=== PATIENT | female | born 1975 | race African-American/Black ===

== ENCOUNTER 2023-03-07 14:30 | Inpatient (IN) | payer OTHER, SELFPAY ==
--- NOTE | ~2023-03-07 | US_ITS ---
EXAMINATION: US ABDOMEN COMPLETE CLINICAL INFORMATION: Diffuse abdominal pain and swelling. COMPARISON: CT abdomen and pelvis 01/17/2017. X-ray abdomen 12/11/2016. TECHNIQUE: Real-time imaging of the abdominal viscera. FINDINGS: PANCREAS: Normal. ABDOMINAL AORTA: The proximal, mid, and distal segments are normal in caliber. INFERIOR VENA CAVA: Visualized portions are normal. LIVER: Normal. The liver is normal in size. The liver contour is normal. Parenchymal echogenicity is normal. No focal hepatic lesion. There is no intrahepatic biliary duct dilatation seen. GALLBLADDER: Surgically absent. COMMON BILE DUCT: Normal in caliber measuring 0.32 cm in diameter. RIGHT KIDNEY: Normal. No hydronephrosis. No renal calculi or focal parenchymal lesions. The kidney measures 10.7 cm in maximum dimension. LEFT KIDNEY: Normal. No hydronephrosis. No renal calculi or focal parenchymal lesions. The kidney measures 10.8 cm in maximum dimension. SPLEEN: Normal. The spleen measures 10.1 cm in maximum dimension. FREE FLUID: None. US/US abdomen complete IMPRESSION: Unremarkable abdominal ultrasound.
--- NOTE | ~2023-03-07 | XR_ITS ---
EXAMINATION: XR CHEST CLINICAL INFORMATION: Question pneumonia resolution COMPARISON: Chest radiograph from 03/12/2023 TECHNIQUE: Frontal view of the chest was obtained. FINDINGS: Very slight right basilar atelectasis though evolving infectious/inflammatory etiology not excluded. No pneumothorax. Trachea is midline. Cardiac mediastinal silhouette is not enlarged. No large pleural effusion. Degenerative changes of the right glenohumeral joint. Surgical anchor of the left humeral head. Soft tissues are unremarkable. XR/XR chest 1V IMPRESSION: Very slight right basilar atelectasis though evolving infectious/inflammatory etiology not excluded.
--- NOTE | ~2023-03-07 | XR_ITS ---
EXAMINATION: XR CHEST CLINICAL INFORMATION: Cough, rhonchi. COMPARISON: Chest radiograph 12/10/2016. TECHNIQUE: Frontal view of the chest was obtained. FINDINGS: Focal airspace opacities in the lateral right lower lobe. Diffuse interstitial thickening. No significant pleural effusion or pneumothorax. Stable appearance of the cardiomediastinal silhouette. Chronic appearing deformity of the proximal right humerus and right scapula/glenoid. Surgical anchors projecting over the left humeral head. XR/XR chest 1V IMPRESSION: Focal airspace opacities in the right lower lobe concerning for pneumonia in the appropriate clinical context. Recommend a follow-up examination after treatment to ensure appropriate resolution.
--- NOTE | ~2023-03-07 | XR_ITS ---
EXAMINATION: XR CHEST CLINICAL INFORMATION: Right-sided pain on inspiration, pneumonia. COMPARISON: 03/07/2023 chest radiograph. TECHNIQUE: Frontal view of the chest was obtained. FINDINGS: No significant abnormality is noted involving the heart, lungs, mediastinum, bony thorax or soft tissues. XR/XR chest 1V IMPRESSION: No acute cardiopulmonary process.
--- NOTE | 2023-03-07 15:50 | HO.PM.IMCN ---
History of Present Illness Data of Consult Service Date: 03/07/23 Requesting physician: Omar Bedoya Primary Care Provider: Polly Vuong MD HPI Reason for consult: medical H&P 40 year old female with htn, fibromyalgia, asthma, fibrodysplasia, schizophrenia, PTDS, bipolar disorder, polysubstance abuse, and hisotry PE 2 years ago no longer on anticoagulation (previously taking xarelto) admitted to psychiatry from [facility] ED with consult placed to hositalist service for medical H&P. She is reporting a productive cough ongoing for three days with rattling in chest. No associated sinus pain, congestion, fevers, chills, sob, wheezing, chest pain. No sick contacts. In th ED, no leukocytosis, normocytic anemia with H/H 10.6/33.6%, renal function/lytes normal. UTox positive for THC, cocaine, fentanyl, benzo. She endorses crack cocaine use and occ etoh use. Otherwise no complaints. Review of Systems Review of Systems: General: No fevers, malaise, unintentional weight loss HEENT: No blurred vision, diplopia. No sore throat, nasal congestion, rhinorrhea, sinus pain, ear pain Cardiovascular: No chest pain, palpitations, or leg edema Respiratory: +cough. No shortness of breath, wheezing GI: No abdominal pain, nausea, vomiting, diarrhea, constipation, melena, hematochezia : No dysuria, hematuria, increased urinary frequency, decreased urinary output MSK: No myalgia, back pain Neuro: No headaches, weakness, paresthesias Skin: No rashes or lesions [facility] Medical History Asthma HTN (hypertension) BUZZ (iron deficiency anemia) Polysubstance abuse Social History Patient Tobacco Use Status: Current everyday Tobacco user Tobacco use type: Cigarette Substance Use Type: Crack/Cocaine and Marijuana Advance Directives: No Meds Allergies Allergy/AdvReac Type Severity Reaction Status Date / Time aspirin Allergy Unknown Unknown Verified 03/07/23 13:44 codeine Allergy Unknown Unknown Verified 03/07/23 13:44 haloperidol [From Haldol] Allergy Unknown Unknown Verified 03/07/23 13:44 NSAIDS (Non-Steroidal Allergy Unknown Unknown Verified 03/07/23 13:44 Anti-Inflamma risperidone [From Risperdal] Allergy Unknown Unknown Verified 03/07/23 13:44 tramadol Allergy Unknown Unknown Verified 03/07/23 13:44 trazodone Allergy Unknown Unknown Verified 03/07/23 13:44 prozac Allergy Unknown Unknown Uncoded 03/07/23 13:44 Active Medications: Current Medications Acetaminophen (Acetaminophen 325 Mg Tablet) 650 mg PO Q6H PRN PRN Reason: Headache/Pain Mild Scale (1-3) Al Hydroxide/Mg Hydroxide (Magnesium Hydrox/Alum Hydrox 30 Ml Oral.Susp) 30 ml PO Q6H PRN PRN Reason: Heartburn/Nausea Hydroxyzine HCl (Hydroxyzine Hcl 25 Mg Tablet) 25 mg PO Q6H PRN PRN Reason: Anxiety Magnesium Hydroxide (Milk Of Magnesia 30 Ml Oral.Susp) 30 ml PO DAILY PRN PRN Reason: Constipation Physical Exam Vital Signs and Narrative: Constitutional - Awake and Alert, No apparent distress Eyes - PERRLA, EOMI Cardiovascular - S1S2, RRR, No edema Respiratory - Normal lung expansion, Normal respiratory effort, No respiratory distress, rhonchi cleared with cough Gastrointestinal - NT / ND; +BS; No rebound or guarding Extremities - no calf tenderness bilaterally, no swelling Skin - Warm/Dry Neurological - Alert & oriented x3, CN II-XII in tact, 5/5 strength BUE and BLE Psychological - Appropriate affect Assessment and Plan (1) Routine medical exam: Status: Acute Plan 40 year old female with htn, fibromyalgia, asthma, fibrodysplasia, schizophrenia, PTDS, bipolar disorder, polysubstance abuse, and hisotry PE 2 years ago no longer on anticoagulation (previously taking xarelto) admitted to psychiatry from [facility] ED with consult placed to hositalist service for medical H&P. #Schizophrenia -plan per psychiatry #polysubstance abuse -plan per psychiatry #HTN -continue amlodipine, propranolol, losartan #Mild persistent asthma -continue breo, singulair -albuterol prn -no acute exacerbation #Acute URI -pt with cough and rhonchi that did clear with cough. Afebrile, no leukocytosis -Will check CXR given history, but suspect viral etiology -symptomatic management #Fibromyalgia -continue duloxetine, cyclobenzaprine Thank you for allowing me to participate in this consult. Signing off at this time. Please do not hesitate to call for further questions. Time Spent With Patient Time: Total time managing care of this patient today ____ minutes.
[2023-03-07] MEDS: Doxycycline Monohydrate 100 MG CAPSULE PO (22:07)
[2023-03-07] MEDS: Acetaminophen 325 MG TABLET 650 MG PO (22:28)
[2023-03-07] MEDS: Lidocaine 4 % Patch ADH..PATCH 1 PATCH TRANSDERMA (22:32)
--- NOTE | 2023-03-08 00:39 | PC.ADMIT ---
pt is a 47 year old female who presented to [facility] ED with SI with a plan overdose. pt tox screen was positive for cocaine, benzos, and THC. pt does take klonopin according to med rec. pt has a PMH of inpatient hospitalizations, asthma, substance use disorder, PTSD, major depressive disorder, sciatica, psoriasis, and arthritis. during admission, pt answered all questions and signed all legals. pt complained to lung pain and received a chest x-ray and a antibiotics. pt also received tylenol and a lidocaine patch. start treatment plan and promote safety. pt reports she uses a cane at home.
[2023-03-08 07:58] LABS: MANUAL DIFF FLAG NO
[2023-03-08 08:00] LABS: Basophils Percent Auto 0.3 % (0-2); Eosinophils Absolute Auto 0.1 X10*3/uL (0.0-0.4); Eosinophils Percent Auto 3.5 % (0-4); Hematocrit 35.1 % (37.0-47.0); Hemoglobin 11.3 g/dl (12.0-16.0); Imm Gran Abs Auto 0.01 X10*3/uL (0.00-0.03); Imm Gran Pct Auto 0.3 % (0.0-0.4); Lymphocytes Absolute Auto 1.4 X10*3/uL (1.2-4.9); Lymphocytes Percent Auto 37.2 % (20-40); Mean Corpuscular HGB Conc 32.2 g/dl (31.0-35.0); Mean Corpuscular Hemoglobin 28.1 pg (27.0-33.0); Mean Corpuscular Volume 87.3 fL (80.0-98.0); Mean Platelet Volume 8.6 fL (9.4-12.3); Monocytes Absolute Auto 0.2 X10*3/uL (0.1-1.2); Monocytes Percent Auto 5.6 % (2-11); Neutrophils Percent Auto 53.1 % (45-73); Platelet Count 230 X10*3/uL (160-400); Red Blood Count 4.02 X10*6/uL (4.20-5.50); Red Cell Distribution Width 13.2 % (11.0-16.0); White Blood Count 3.8 X10*3/uL (4.8-10.8)
[2023-03-08 08:25] LABS: Alanine Aminotransferase 8 U/L (0-31); Albumin Level 3.4 g/dL (3.5-5.0); Alkaline Phosphatase 85 U/L (39-117); Anion Gap 13 (12-20); Aspartate Amino Transferase 11 U/L (5-31); Bilirubin Total 0.2 mg/dL (0.0-1.0); Blood Urea Nitrogen 9 mg/dL (9-16); Calcium 9.7 mg/dL (8.4-10.2); Carbon Dioxide 22 mmol/L (22-29); Chloride 110 mmol/L (96-108); Cholesterol 153 mg/dL; Estimated Glomerular Filt Rate > 60; Glucose Fasting 90 mg/dL (60-99); HDL Cholesterol 35 mg/dL; LDL Cholesterol Calculated 96 mg/dl; Magnesium 1.8 mg/dL (1.6-2.6); Potassium 4.6 mmol/L (3.3-5.1); Sodium 140 mmol/L (135-145); Total Protein 6.4 g/dL (6.5-8.0); Triglycerides 112 mg/dL
[2023-03-08 08:33] LABS: Estimated Average Glucose 97 mg/dL
[2023-03-08 08:41] LABS: Free T4 (Free Thyroxine) 1.01 ng/dL (0.71-1.85); Thyroid Stimulating Hormone 0.28 uIU/mL (0.32-4.0)
[2023-03-08 08:53] LABS: Folate 14.2 ng/mL (> or = 4.0); Vitamin B12 202 pg/mL (200-900)
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
[2023-03-08] MEDS: Acetaminophen 325 MG TABLET 650 MG PO ×2 (12:23→20:39)
[2023-03-08] MEDS: Lidocaine 4 % Patch ADH..PATCH 1 PATCH TRANSDERMA (12:30)
[2023-03-08] MEDS: Doxycycline Monohydrate 100 MG CAPSULE PO ×2 (12:30→20:39)
[2023-03-08 12:38] VITALS: BP 140/69; PULSE 81; RESP 16; TEMP 36.2; O2SAT 99
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
[2023-03-08] MEDS: amLODIPine Besylate 5 MG TABLET PO (13:22)
[2023-03-08] MEDS: DULoxetine HCl 60 MG CAPSULE.DR PO (13:22)
[2023-03-08] MEDS: Docusate Sodium 100 MG CAPSULE PO ×2 (13:24→20:40)
[2023-03-08] MEDS: Loratadine 10 MG TABLET PO (13:24)
[2023-03-08] MEDS: Multivitamin TABLET 1 TAB PO (13:25)
[2023-03-08] MEDS: Thiamine HCL 100 MG TABLET PO (13:25)
[2023-03-08] MEDS: Folic Acid 1 MG TABLET PO (13:25)
[2023-03-08] MEDS: Benztropine Mesylate 0.5 MG TABLET PO ×2 (13:25→20:39)
[2023-03-08] MEDS: clonazePAM 1 MG TABLET PO ×2 (13:29→20:40)
[2023-03-08 18:43] VITALS: BP 126/58; PULSE 85; TEMP 36.4
[2023-03-08] MEDS: QUEtiapine Fumarate 400 MG TABLET PO (20:39)
[2023-03-08] MEDS: Nicotine Polacrilex 2 MG GUM 4 MG BUCCAL (20:53)
[2023-03-09] MEDS: Acetaminophen 325 MG TABLET 650 MG PO ×3 (02:30→20:16)
[2023-03-09] MEDS: Zolpidem Tartrate 5 MG TABLET PO (02:30)
[2023-03-09] MEDS: Thiamine HCL 100 MG TABLET PO (08:59)
[2023-03-09] MEDS: Doxycycline Monohydrate 100 MG CAPSULE PO ×2 (09:00→19:59)
[2023-03-09] MEDS: Loratadine 10 MG TABLET PO (09:00)
[2023-03-09] MEDS: Docusate Sodium 100 MG CAPSULE PO ×2 (09:00→19:59)
[2023-03-09] MEDS: Folic Acid 1 MG TABLET PO (09:00)
[2023-03-09] MEDS: Benztropine Mesylate 0.5 MG TABLET PO ×2 (09:00→19:59)
[2023-03-09] MEDS: amLODIPine Besylate 5 MG TABLET PO (09:00)
[2023-03-09] MEDS: DULoxetine HCl 60 MG CAPSULE.DR PO (09:00)
[2023-03-09] MEDS: Multivitamin TABLET 1 TAB PO (09:00)
[2023-03-09] MEDS: QUEtiapine Fumarate 50 MG TABLET PO (09:00)
[2023-03-09 09:08] VITALS: BP 142/80; PULSE 86; RESP 16; TEMP 36.7; O2SAT 95
[2023-03-09 09:40] LABS: Iron 84 mcg/dL (30-160); Percent Iron Saturation 32 % (15-50); Total Iron Binding Capacity 265 mcg/dL (228-428); Unsaturated Iron Binding 181 ug/dL
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
[2023-03-09] MEDS: Nicotine Polacrilex 2 MG GUM 4 MG BUCCAL ×2 (12:07→19:59)
[2023-03-09] MEDS: Lidocaine 4 % Patch ADH..PATCH 2 PATCH TRANSDERMA (14:38)
[2023-03-09] MEDS: clonazePAM 1 MG TABLET PO ×2 (15:46→19:59)
[2023-03-09 18:08] LABS: Uric Acid 5.7 mg/dL (2.4-5.7)
--- NOTE | 2023-03-09 18:12 | PC.NURSE ---
Hospitalist consult placed by provider. T/W messaged rn documentation hospitalist via [employer] at [phone]. Hospitalist is aware of consult.
[2023-03-09 18:26] VITALS: BP 135/69; PULSE 80; TEMP 36.6
[2023-03-09] MEDS: Cyclobenzaprine HCl 10 MG TABLET PO (18:29)
[2023-03-09] MEDS: QUEtiapine Fumarate 400 MG TABLET PO (19:59)
[2023-03-10] MEDS: guaiFENesin 200 MG/10 ML 10 ML LIQUID PO (00:52)
[2023-03-10] MEDS: Zolpidem Tartrate 5 MG TABLET PO (00:52)
[2023-03-10 06:00] VITALS: BP 139/88; PULSE 80; RESP 18; O2SAT 96
[2023-03-10] MEDS: Lidocaine 4 % Patch ADH..PATCH 2 PATCH TRANSDERMA (08:17)
[2023-03-10] MEDS: Doxycycline Monohydrate 100 MG CAPSULE PO ×2 (08:17→19:58)
[2023-03-10] MEDS: Docusate Sodium 100 MG CAPSULE PO ×2 (08:17→19:58)
[2023-03-10] MEDS: Thiamine HCL 100 MG TABLET PO (08:17)
[2023-03-10] MEDS: Multivitamin TABLET 1 TAB PO (08:17)
[2023-03-10] MEDS: QUEtiapine Fumarate 50 MG TABLET PO (08:17)
[2023-03-10] MEDS: Folic Acid 1 MG TABLET PO (08:17)
[2023-03-10] MEDS: Benztropine Mesylate 0.5 MG TABLET PO ×2 (08:17→19:59)
[2023-03-10] MEDS: Loratadine 10 MG TABLET PO (08:17)
[2023-03-10] MEDS: DULoxetine HCl 60 MG CAPSULE.DR PO (08:18)
[2023-03-10] MEDS: amLODIPine Besylate 5 MG TABLET PO (08:18)
[2023-03-10] MEDS: Fluticasone/Vilanterol 100/25 BLST.W.DEV 1 PUFF INHALE (08:19)
[2023-03-10] MEDS: Propranolol HCL 10 MG TABLET PO ×2 (08:52→19:58)
[2023-03-10] MEDS: Cholecalciferol (Vitamin D3) 10 MCG TABLET 20 MCG PO (08:52)
[2023-03-10] MEDS: Naltrexone HCl 50 MG TABLET PO (08:52)
[2023-03-10] MEDS: OLANZapine 5 MG TABLET PO ×2 (08:52→19:59)
[2023-03-10] MEDS: Acetaminophen 325 MG TABLET 650 MG PO ×2 (08:58→19:59)
[2023-03-10] MEDS: Cyclobenzaprine HCl 10 MG TABLET PO (08:58)
--- NOTE | 2023-03-10 09:40 | PC.NURSE ---
lATE ENTRY- PT RECEIVED KLONOPIN 1MG AT 12:06 03/09/23. Unable to be documented in MAR
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
[2023-03-10] MEDS: clonazePAM 1 MG TABLET PO ×2 (12:05→19:52)
[2023-03-10] MEDS: Nicotine Polacrilex 2 MG GUM 4 MG BUCCAL ×2 (12:06→19:58)
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
[2023-03-10 19:50] VITALS: BP 132/74; PULSE 79; TEMP 36.6
[2023-03-10] MEDS: QUEtiapine Fumarate 400 MG TABLET PO (19:58)
[2023-03-10] MEDS: Divalproex Sodium ER 500 MG TAB.ER.24H 1500 MG PO (19:58)
[2023-03-10] MEDS: Prazosin HCL 1 MG CAPSULE 2 MG PO (19:58)
[2023-03-10] MEDS: Montelukast Sodium 10 MG TABLET PO (19:58)
[2023-03-11] MEDS: Omeprazole 40 MG CAPSULE.DR PO (06:16)
[2023-03-11] MEDS: Acetaminophen 325 MG TABLET 650 MG PO ×2 (06:18→18:29)
[2023-03-11] MEDS: Nicotine Polacrilex 2 MG GUM 4 MG BUCCAL ×3 (07:00→15:48)
[2023-03-11 08:00] VITALS: BP 121/73; PULSE 82; RESP 16; TEMP 36.4; O2SAT 98
[2023-03-11] MEDS: Loratadine 10 MG TABLET PO (08:21)
[2023-03-11] MEDS: amLODIPine Besylate 5 MG TABLET PO (08:21)
[2023-03-11] MEDS: Fluticasone/Vilanterol 100/25 BLST.W.DEV 1 PUFF INHALE (08:21)
[2023-03-11] MEDS: Benztropine Mesylate 0.5 MG TABLET PO ×2 (08:22→20:44)
[2023-03-11] MEDS: Folic Acid 1 MG TABLET PO (08:22)
[2023-03-11] MEDS: QUEtiapine Fumarate 50 MG TABLET PO ×2 (08:22→12:53)
[2023-03-11] MEDS: Thiamine HCL 100 MG TABLET PO (08:22)
[2023-03-11] MEDS: Doxycycline Monohydrate 100 MG CAPSULE PO ×2 (08:22→20:45)
[2023-03-11] MEDS: Cholecalciferol (Vitamin D3) 10 MCG TABLET 20 MCG PO (08:22)
[2023-03-11] MEDS: Docusate Sodium 100 MG CAPSULE PO ×2 (08:22→20:45)
[2023-03-11] MEDS: DULoxetine HCl 30 MG CAPSULE.DR 90 MG PO (08:22)
[2023-03-11] MEDS: Naltrexone HCl 50 MG TABLET PO (08:22)
[2023-03-11] MEDS: Multivitamin TABLET 1 TAB PO (08:22)
[2023-03-11] MEDS: OLANZapine 5 MG TABLET PO ×2 (08:23→20:45)
[2023-03-11] MEDS: Propranolol HCL 10 MG TABLET PO ×2 (08:23→20:44)
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
[2023-03-11] MEDS: Nicotine 21 MG PATCH.TD24 TRANSDERMA (12:53)
[2023-03-11] MEDS: Lidocaine 4 % Patch ADH..PATCH 2 PATCH TRANSDERMA (13:05)
[2023-03-11] MEDS: Pregabalin 25 MG CAPSULE PO (15:47)
[2023-03-11] MEDS: Cyclobenzaprine HCl 10 MG TABLET PO (15:47)
[2023-03-11] MEDS: methocarbamoL 500 MG TABLET PO (15:55)
[2023-03-11 16:00] VITALS: BP 114/90; PULSE 97; TEMP 36.6; O2SAT 98
[2023-03-11] MEDS: clonazePAM 1 MG TABLET PO (18:30)
--- NOTE | 2023-03-11 20:43 | PC.NURSE ---
Patient said the Robaxin was very helpful with her back pain and was able to take a nap.
[2023-03-11] MEDS: QUEtiapine Fumarate 400 MG TABLET PO (20:44)
[2023-03-11] MEDS: Montelukast Sodium 10 MG TABLET PO (20:45)
[2023-03-11] MEDS: Prazosin HCL 1 MG CAPSULE 2 MG PO (20:45)
[2023-03-11] MEDS: Divalproex Sodium ER 500 MG TAB.ER.24H 1500 MG PO (20:45)
[2023-03-11] MEDS: Mirtazapine 30 MG TABLET PO (20:45)
[2023-03-12] MEDS: Omeprazole 40 MG CAPSULE.DR PO (05:39)
[2023-03-12] MEDS: Acetaminophen 325 MG TABLET 650 MG PO (05:39)
[2023-03-12] MEDS: Nicotine Polacrilex 2 MG GUM 4 MG BUCCAL ×2 (05:39→21:54)
[2023-03-12] MEDS: Cyclobenzaprine HCl 10 MG TABLET PO (05:40)
[2023-03-12] MEDS: QUEtiapine Fumarate 50 MG TABLET PO ×2 (05:40→08:14)
[2023-03-12 08:00] VITALS: BP 129/61; PULSE 91; RESP 16; TEMP 36.2; O2SAT 97
[2023-03-12] MEDS: DULoxetine HCl 30 MG CAPSULE.DR 90 MG PO (08:13)
[2023-03-12] MEDS: amLODIPine Besylate 5 MG TABLET PO (08:13)
[2023-03-12] MEDS: Propranolol HCL 10 MG TABLET PO ×2 (08:13→21:48)
[2023-03-12] MEDS: Benztropine Mesylate 0.5 MG TABLET PO ×2 (08:14→21:48)
[2023-03-12] MEDS: Thiamine HCL 100 MG TABLET PO (08:14)
[2023-03-12] MEDS: Doxycycline Monohydrate 100 MG CAPSULE PO (08:14)
[2023-03-12] MEDS: Docusate Sodium 100 MG CAPSULE PO ×2 (08:14→21:48)
[2023-03-12] MEDS: Cholecalciferol (Vitamin D3) 10 MCG TABLET 20 MCG PO (08:14)
[2023-03-12] MEDS: OLANZapine 5 MG TABLET PO ×2 (08:14→21:48)
[2023-03-12] MEDS: Loratadine 10 MG TABLET PO (08:14)
[2023-03-12] MEDS: Pregabalin 25 MG CAPSULE PO (08:14)
[2023-03-12] MEDS: Multivitamin TABLET 1 TAB PO (08:14)
[2023-03-12] MEDS: Fluticasone/Vilanterol 100/25 BLST.W.DEV 1 PUFF INHALE (08:15)
[2023-03-12] MEDS: Folic Acid 1 MG TABLET PO (08:54)
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
--- NOTE | 2023-03-12 15:13 | PM.EVENT ---
Event Note Date of Service: 03/12/23 Event Note: Pt seen and evaluated for follow up on RLL pneumonia. Pt tells me that her providers have been adjusting her psychiatric medications for anxiety and she slept nearly all day yesterday. She continues feeling anxious and has developed shortness of breath yesterday. She is still having productive green cough but states she had been feeling better initially with the initiation of cefuroxime and doxycycline for the CAP seen on CXR 03/07. There is pleuritic cp. Repeat CXR was ordered showing near full resolution of RLL infiltrate today. She is afebrile. Lung exam is clear, no increased WOB, respiratory distress, wheezing, rhonchi, or rales. There is reproducible ttp across the anterior chest and upper back. She is nontoxic appearing. HR is around 90. She does have history of PE two years ago and is no longer on xarelto (though the circumstances surrounding this medication being discontinued are unclear). Will check D-Dimer which may be falsely elevated/nondiagnostic given body habitus. If elevated, will check VQ scan. She is hemodynamically stable. There is no acute asthma exacerbation. If negative, consider uncontrolled anxious as possible etiology of symptoms. Continue abx until completed as prescribed. Time Spent With Patient Time: Total time managing care of this patient today ____ minutes.
[2023-03-12 15:46] LABS: D Dimer High Sensitivity 158 NG/ML
[2023-03-12] MEDS: Prazosin HCL 1 MG CAPSULE 2 MG PO (21:48)
[2023-03-12] MEDS: Divalproex Sodium ER 500 MG TAB.ER.24H 1500 MG PO (21:48)
[2023-03-12] MEDS: Pregabalin 50 MG CAPSULE PO (21:48)
[2023-03-12] MEDS: Mirtazapine 30 MG TABLET PO (21:49)
[2023-03-12] MEDS: Montelukast Sodium 10 MG TABLET PO (21:49)
[2023-03-12] MEDS: QUEtiapine Fumarate 400 MG TABLET PO (21:49)
[2023-03-12 22:07] VITALS: BP 126/59; PULSE 88; RESP 16; TEMP 36.3; O2SAT 95
[2023-03-13 06:00] VITALS: BP 138/74; PULSE 88; RESP 16; TEMP 36.7; O2SAT 96
[2023-03-13] MEDS: Omeprazole 40 MG CAPSULE.DR PO (06:13)
[2023-03-13] MEDS: OLANZapine 5 MG TABLET PO ×2 (08:38→19:46)
[2023-03-13] MEDS: Propranolol HCL 10 MG TABLET PO ×2 (08:38→19:46)
[2023-03-13] MEDS: Loratadine 10 MG TABLET PO (08:39)
[2023-03-13] MEDS: amLODIPine Besylate 5 MG TABLET PO (08:39)
[2023-03-13] MEDS: Cholecalciferol (Vitamin D3) 10 MCG TABLET 20 MCG PO (08:39)
[2023-03-13] MEDS: Multivitamin TABLET 1 TAB PO (08:39)
[2023-03-13] MEDS: Thiamine HCL 100 MG TABLET PO (08:39)
[2023-03-13] MEDS: Folic Acid 1 MG TABLET PO (08:39)
[2023-03-13] MEDS: Pregabalin 50 MG CAPSULE PO ×2 (08:39→19:46)
[2023-03-13] MEDS: DULoxetine HCl 30 MG CAPSULE.DR 90 MG PO (08:39)
[2023-03-13] MEDS: Benztropine Mesylate 0.5 MG TABLET PO ×2 (08:39→19:47)
[2023-03-13] MEDS: Docusate Sodium 100 MG CAPSULE PO ×2 (08:39→19:46)
[2023-03-13] MEDS: QUEtiapine Fumarate 50 MG TABLET PO (08:40)
[2023-03-13] MEDS: Fluticasone/Vilanterol 100/25 BLST.W.DEV 1 PUFF INHALE (08:41)
[2023-03-13] MEDS: Cyclobenzaprine HCl 10 MG TABLET PO ×2 (08:50→19:49)
[2023-03-13] MEDS: Acetaminophen 325 MG TABLET 650 MG PO ×2 (08:50→18:43)
[2023-03-13] MEDS: Lidocaine 4 % Patch ADH..PATCH 2 PATCH TRANSDERMA (09:44)
[2023-03-13] MEDS: methocarbamoL 500 MG TABLET PO ×2 (13:44→18:44)
[2023-03-13] MEDS: Magnesium Hydrox/Alum Hydrox 30 ML ORAL.SUSP PO (13:44)
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
[2023-03-13 18:00] VITALS: BP 120/61; PULSE 87; RESP 16; TEMP 36.7; O2SAT 97
[2023-03-13] MEDS: Mirtazapine 30 MG TABLET PO (19:46)
[2023-03-13] MEDS: Divalproex Sodium ER 500 MG TAB.ER.24H 1500 MG PO (19:46)
[2023-03-13] MEDS: Prazosin HCL 1 MG CAPSULE 2 MG PO (19:46)
[2023-03-13] MEDS: QUEtiapine Fumarate 400 MG TABLET PO (19:46)
[2023-03-13] MEDS: Montelukast Sodium 10 MG TABLET PO (19:46)
[2023-03-13] MEDS: Nicotine Polacrilex 2 MG GUM 4 MG BUCCAL (19:53)
[2023-03-14 06:00] VITALS: BP 122/70; PULSE 88; RESP 16; TEMP 36.6; O2SAT 98
[2023-03-14] MEDS: Omeprazole 40 MG CAPSULE.DR PO (06:04)
[2023-03-14] MEDS: Nicotine Polacrilex 2 MG GUM 4 MG BUCCAL ×3 (10:05→19:25)
[2023-03-14] MEDS: Propranolol HCL 10 MG TABLET PO ×2 (10:05→20:27)
[2023-03-14] MEDS: DULoxetine HCl 30 MG CAPSULE.DR 90 MG PO (10:06)
[2023-03-14] MEDS: Cholecalciferol (Vitamin D3) 10 MCG TABLET 20 MCG PO (10:07)
[2023-03-14] MEDS: Pregabalin 50 MG CAPSULE PO ×2 (10:07→20:27)
[2023-03-14] MEDS: Loratadine 10 MG TABLET PO (10:07)
[2023-03-14] MEDS: Folic Acid 1 MG TABLET PO (10:07)
[2023-03-14] MEDS: Acetaminophen 325 MG TABLET 650 MG PO ×2 (10:07→18:59)
[2023-03-14] MEDS: Docusate Sodium 100 MG CAPSULE PO ×2 (10:08→20:27)
[2023-03-14] MEDS: Benztropine Mesylate 0.5 MG TABLET PO ×2 (10:08→20:27)
[2023-03-14] MEDS: Multivitamin TABLET 1 TAB PO (10:08)
[2023-03-14] MEDS: QUEtiapine Fumarate 50 MG TABLET PO ×3 (10:08→17:16)
[2023-03-14] MEDS: Thiamine HCL 100 MG TABLET PO (10:08)
[2023-03-14] MEDS: Lidocaine 4 % Patch ADH..PATCH 2 PATCH TRANSDERMA (10:08)
[2023-03-14] MEDS: OLANZapine 5 MG TABLET PO ×2 (10:08→20:27)
[2023-03-14] MEDS: clonazePAM 1 MG TABLET PO ×2 (10:09→18:59)
[2023-03-14] MEDS: amLODIPine Besylate 5 MG TABLET PO (10:09)
[2023-03-14] MEDS: guaiFENesin 200 MG/10 ML 10 ML LIQUID PO (12:23)
[2023-03-14] MEDS: Cyclobenzaprine HCl 10 MG TABLET PO ×2 (12:23→18:58)
[2023-03-14] MEDS: hydrOXYzine HCL 25 MG TABLET PO (12:23)
[2023-03-14] MEDS: methocarbamoL 500 MG TABLET PO ×2 (12:23→18:59)
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
[2023-03-14] MEDS: Albuterol Sulfate 90 MCG 8 GM INHALER 2 PUFF INHALE (12:27)
[2023-03-14] MEDS: Triamcinolone Acet 0.1 % Cream 15 GM TUBE 1 APPL TOPICAL (17:17)
[2023-03-14 20:25] VITALS: BP 140/82; PULSE 112; RESP 18; TEMP 36.8; O2SAT 97
[2023-03-14] MEDS: Montelukast Sodium 10 MG TABLET PO (20:27)
[2023-03-14] MEDS: Mirtazapine 30 MG TABLET PO (20:27)
[2023-03-14] MEDS: Divalproex Sodium ER 500 MG TAB.ER.24H 1500 MG PO (20:27)
[2023-03-14] MEDS: QUEtiapine Fumarate 400 MG TABLET PO (20:27)
[2023-03-14] MEDS: Prazosin HCL 1 MG CAPSULE 2 MG PO (20:27)
[2023-03-15] MEDS: Acetaminophen 325 MG TABLET 650 MG PO (03:14)
[2023-03-15] MEDS: QUEtiapine Fumarate 50 MG TABLET PO ×3 (03:18→15:19)
[2023-03-15] MEDS: Omeprazole 40 MG CAPSULE.DR PO (06:06)
[2023-03-15 08:32] VITALS: BP 115/63; PULSE 86; RESP 16; TEMP 37.1; O2SAT 94
[2023-03-15] MEDS: guaiFENesin 200 MG/10 ML 10 ML LIQUID PO (08:50)
[2023-03-15] MEDS: Propranolol HCL 10 MG TABLET PO ×2 (08:50→20:49)
[2023-03-15] MEDS: OLANZapine 5 MG TABLET PO ×2 (08:51→20:49)
[2023-03-15] MEDS: Loratadine 10 MG TABLET PO (08:51)
[2023-03-15] MEDS: Multivitamin TABLET 1 TAB PO (08:51)
[2023-03-15] MEDS: DULoxetine HCl 30 MG CAPSULE.DR 90 MG PO (08:51)
[2023-03-15] MEDS: Benztropine Mesylate 0.5 MG TABLET PO ×2 (08:51→20:49)
[2023-03-15] MEDS: Thiamine HCL 100 MG TABLET PO (08:51)
[2023-03-15] MEDS: Fluticasone/Vilanterol 100/25 BLST.W.DEV 1 PUFF INHALE (08:51)
[2023-03-15] MEDS: Cholecalciferol (Vitamin D3) 10 MCG TABLET 20 MCG PO (08:51)
[2023-03-15] MEDS: Pregabalin 50 MG CAPSULE PO ×2 (08:51→20:49)
[2023-03-15] MEDS: Folic Acid 1 MG TABLET PO (08:51)
[2023-03-15] MEDS: Docusate Sodium 100 MG CAPSULE PO ×2 (08:51→20:48)
[2023-03-15] MEDS: amLODIPine Besylate 5 MG TABLET PO (08:51)
[2023-03-15] MEDS: Lidocaine 4 % Patch ADH..PATCH 2 PATCH TRANSDERMA (08:55)
[2023-03-15] MEDS: hydrOXYzine HCL 25 MG TABLET PO (15:19)
[2023-03-15] MEDS: methocarbamoL 500 MG TABLET PO (15:50)
[2023-03-15] MEDS: clonazePAM 1 MG TABLET PO (15:50)
[2023-03-15] MEDS: Nicotine Polacrilex 2 MG GUM 4 MG BUCCAL (15:50)
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
[2023-03-15 20:45] VITALS: BP 138/75; PULSE 103; RESP 18; TEMP 36.4; O2SAT 98
[2023-03-15] MEDS: Divalproex Sodium ER 500 MG TAB.ER.24H 1000 MG PO (20:48)
[2023-03-15] MEDS: Mirtazapine 30 MG TABLET PO (20:48)
[2023-03-15] MEDS: QUEtiapine Fumarate 400 MG TABLET PO (20:48)
[2023-03-15] MEDS: Prazosin HCL 1 MG CAPSULE 2 MG PO (20:49)
[2023-03-15] MEDS: Montelukast Sodium 10 MG TABLET PO (20:49)
[2023-03-16 06:00] VITALS: BP 126/70; PULSE 85; RESP 16
[2023-03-16] MEDS: Omeprazole 40 MG CAPSULE.DR PO (06:21)
[2023-03-16] MEDS: Benztropine Mesylate 0.5 MG TABLET PO ×2 (08:47→21:17)
[2023-03-16] MEDS: QUEtiapine Fumarate 50 MG TABLET PO ×2 (08:47→17:20)
[2023-03-16] MEDS: OLANZapine 5 MG TABLET PO (08:47)
[2023-03-16] MEDS: Thiamine HCL 100 MG TABLET PO (08:47)
[2023-03-16] MEDS: hydrOXYzine HCL 25 MG TABLET PO (08:47)
[2023-03-16] MEDS: Multivitamin TABLET 1 TAB PO (08:47)
[2023-03-16] MEDS: Propranolol HCL 10 MG TABLET PO ×2 (08:47→21:17)
[2023-03-16] MEDS: Pregabalin 50 MG CAPSULE PO ×2 (08:47→21:16)
[2023-03-16] MEDS: amLODIPine Besylate 5 MG TABLET PO (08:47)
[2023-03-16] MEDS: DULoxetine HCl 60 MG CAPSULE.DR PO (08:48)
[2023-03-16] MEDS: Cholecalciferol (Vitamin D3) 10 MCG TABLET 20 MCG PO (08:48)
[2023-03-16] MEDS: Loratadine 10 MG TABLET PO (08:48)
[2023-03-16] MEDS: Cyclobenzaprine HCl 10 MG TABLET PO (08:48)
[2023-03-16] MEDS: Docusate Sodium 100 MG CAPSULE PO ×2 (08:48→21:17)
[2023-03-16] MEDS: Folic Acid 1 MG TABLET PO (08:48)
[2023-03-16] MEDS: Lidocaine 4 % Patch ADH..PATCH 2 PATCH TRANSDERMA (08:49)
[2023-03-16] MEDS: Fluticasone/Vilanterol 100/25 BLST.W.DEV 1 PUFF INHALE (09:02)
[2023-03-16] MEDS: Nicotine Polacrilex 2 MG GUM 4 MG BUCCAL (09:02)
[2023-03-16] MEDS: Nicotine 21 MG PATCH.TD24 TRANSDERMA (09:02)
[2023-03-16] MEDS: Triamcinolone Acet 0.1 % Cream 15 GM TUBE 1 APPL TOPICAL (13:12)
[2023-03-16] MEDS: clonazePAM 1 MG TABLET PO ×3 (13:12→21:18)
[2023-03-16] MEDS: Perphenazine 2 MG TABLET PO ×2 (14:25→21:17)
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
[2023-03-16] MEDS: Acetaminophen 325 MG TABLET 650 MG PO (17:20)
[2023-03-16 17:37] VITALS: BP 114/59; PULSE 96; TEMP 36.3; O2SAT 95
[2023-03-16 21:15] VITALS: BP 124/69; PULSE 85
[2023-03-16] MEDS: Prazosin HCL 1 MG CAPSULE 2 MG PO (21:16)
[2023-03-16] MEDS: Mirtazapine 30 MG TABLET PO (21:17)
[2023-03-16] MEDS: Montelukast Sodium 10 MG TABLET PO (21:17)
[2023-03-16] MEDS: Divalproex Sodium ER 500 MG TAB.ER.24H 1000 MG PO (21:17)
[2023-03-16] MEDS: QUEtiapine Fumarate 400 MG TABLET PO (21:17)
[2023-03-17] MEDS: QUEtiapine Fumarate 50 MG TABLET PO ×4 (00:20→16:48)
[2023-03-17] MEDS: methocarbamoL 500 MG TABLET PO ×3 (00:20→16:49)
[2023-03-17] MEDS: Cyclobenzaprine HCl 10 MG TABLET PO (04:54)
[2023-03-17] MEDS: Nicotine Polacrilex 2 MG GUM 4 MG BUCCAL (04:54)
[2023-03-17] MEDS: Omeprazole 40 MG CAPSULE.DR PO (04:54)
[2023-03-17 08:25] VITALS: BP 134/76; PULSE 89; RESP 16; TEMP 36.4; O2SAT 96
[2023-03-17] MEDS: Cholecalciferol (Vitamin D3) 10 MCG TABLET 20 MCG PO (08:26)
[2023-03-17] MEDS: Docusate Sodium 100 MG CAPSULE PO ×2 (08:26→21:00)
[2023-03-17] MEDS: Perphenazine 2 MG TABLET PO ×3 (08:26→21:00)
[2023-03-17] MEDS: Fluticasone/Vilanterol 100/25 BLST.W.DEV 1 PUFF INHALE (08:26)
[2023-03-17] MEDS: Folic Acid 1 MG TABLET PO (08:27)
[2023-03-17] MEDS: Loratadine 10 MG TABLET PO (08:27)
[2023-03-17] MEDS: Pregabalin 50 MG CAPSULE PO ×2 (08:27→21:00)
[2023-03-17] MEDS: DULoxetine HCl 60 MG CAPSULE.DR PO (08:27)
[2023-03-17] MEDS: Benztropine Mesylate 0.5 MG TABLET PO ×2 (08:27→21:00)
[2023-03-17] MEDS: clonazePAM 1 MG TABLET PO ×3 (08:27→21:00)
[2023-03-17] MEDS: amLODIPine Besylate 5 MG TABLET PO (08:27)
[2023-03-17] MEDS: Multivitamin TABLET 1 TAB PO (08:27)
[2023-03-17] MEDS: Thiamine HCL 100 MG TABLET PO (08:27)
[2023-03-17] MEDS: Propranolol HCL 10 MG TABLET PO ×2 (08:55→20:59)
[2023-03-17] MEDS: Acetaminophen 325 MG TABLET 650 MG PO (09:03)
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
[2023-03-17 16:19] LABS: OBS Int Ctl Valid YES; OBS1 NEGATIVE (NEGATIVE)
[2023-03-17 20:57] VITALS: BP 123/73; PULSE 94; RESP 18; TEMP 36.1; O2SAT 99
[2023-03-17] MEDS: Prazosin HCL 1 MG CAPSULE 2 MG PO (20:59)
[2023-03-17] MEDS: Divalproex Sodium ER 500 MG TAB.ER.24H 1000 MG PO (20:59)
[2023-03-17] MEDS: Montelukast Sodium 10 MG TABLET PO (20:59)
[2023-03-17] MEDS: QUEtiapine Fumarate 400 MG TABLET PO (21:00)
[2023-03-17] MEDS: Mirtazapine 30 MG TABLET PO (21:00)
[2023-03-18] MEDS: Omeprazole 40 MG CAPSULE.DR PO (06:45)
[2023-03-18 08:00] VITALS: BP 101/54; PULSE 89; RESP 16; TEMP 36.4; O2SAT 94
[2023-03-18] MEDS: Fluticasone/Vilanterol 100/25 BLST.W.DEV 1 PUFF INHALE (09:02)
[2023-03-18] MEDS: amLODIPine Besylate 5 MG TABLET PO (09:02)
[2023-03-18] MEDS: Multivitamin TABLET 1 TAB PO (09:03)
[2023-03-18] MEDS: Loratadine 10 MG TABLET PO (09:03)
[2023-03-18] MEDS: Thiamine HCL 100 MG TABLET PO (09:03)
[2023-03-18] MEDS: Propranolol HCL 10 MG TABLET PO ×2 (09:03→20:11)
[2023-03-18] MEDS: Benztropine Mesylate 0.5 MG TABLET PO ×2 (09:04→20:11)
[2023-03-18] MEDS: Cholecalciferol (Vitamin D3) 10 MCG TABLET 20 MCG PO (09:04)
[2023-03-18] MEDS: Pregabalin 50 MG CAPSULE PO ×2 (09:05→20:10)
[2023-03-18] MEDS: Perphenazine 2 MG TABLET PO (09:05)
[2023-03-18] MEDS: DULoxetine HCl 60 MG CAPSULE.DR PO (09:05)
[2023-03-18] MEDS: Docusate Sodium 100 MG CAPSULE PO ×2 (09:05→20:11)
[2023-03-18] MEDS: clonazePAM 1 MG TABLET PO (09:05)
[2023-03-18] MEDS: Folic Acid 1 MG TABLET PO (09:05)
[2023-03-18] MEDS: QUEtiapine Fumarate 50 MG TABLET PO ×2 (09:06→14:55)
[2023-03-18 13:16] LABS: TSH reflex Free T4 0.83 uIU/mL (0.32-4.0)
[2023-03-18] MEDS: clonazePAM 0.5 MG TABLET PO ×2 (14:29→20:12)
[2023-03-18] MEDS: Perphenazine 4 MG TABLET PO ×2 (14:29→20:11)
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
[2023-03-18] MEDS: hydrOXYzine HCL 25 MG TABLET PO (14:55)
[2023-03-18 16:10] VITALS: BP 114/52; PULSE 96; RESP 18; TEMP 36; O2SAT 95
[2023-03-18] MEDS: Nicotine 21 MG PATCH.TD24 TRANSDERMA (18:09)
[2023-03-18] MEDS: Nicotine Polacrilex 2 MG GUM 4 MG BUCCAL ×2 (18:09→20:09)
[2023-03-18] MEDS: Cyclobenzaprine HCl 10 MG TABLET PO (20:10)
[2023-03-18] MEDS: methocarbamoL 500 MG TABLET PO (20:10)
[2023-03-18] MEDS: Prazosin HCL 1 MG CAPSULE 2 MG PO (20:11)
[2023-03-18] MEDS: Mirtazapine 30 MG TABLET PO (20:11)
[2023-03-18] MEDS: Divalproex Sodium ER 500 MG TAB.ER.24H 1000 MG PO (20:11)
[2023-03-18] MEDS: Montelukast Sodium 10 MG TABLET PO (20:12)
[2023-03-18] MEDS: QUEtiapine Fumarate 400 MG TABLET PO (20:12)
[2023-03-18 20:15] VITALS: BP 134/87; PULSE 113; RESP 18; TEMP 36.6; O2SAT 98
[2023-03-18] MEDS: Acetaminophen 325 MG TABLET 650 MG PO (20:16)
[2023-03-18] MEDS: Triamcinolone Acet 0.1 % Cream 15 GM TUBE 1 APPL TOPICAL (20:36)
[2023-03-18] MEDS: guaiFENesin 200 MG/10 ML 10 ML LIQUID PO (21:19)
[2023-03-19] MEDS: Acetaminophen 325 MG TABLET 650 MG PO ×2 (04:27→16:21)
[2023-03-19] MEDS: hydrOXYzine HCL 25 MG TABLET PO (04:28)
[2023-03-19] MEDS: Cyclobenzaprine HCl 10 MG TABLET PO ×2 (04:30→11:53)
[2023-03-19 06:00] VITALS: BP 112/52; PULSE 98; RESP 18; TEMP 37.2; O2SAT 94
[2023-03-19] MEDS: Omeprazole 40 MG CAPSULE.DR PO (06:16)
[2023-03-19] MEDS: Fluticasone/Vilanterol 100/25 BLST.W.DEV 1 PUFF INHALE (09:11)
[2023-03-19] MEDS: Lidocaine 4 % Patch ADH..PATCH 2 PATCH TRANSDERMA (09:11)
[2023-03-19] MEDS: Nicotine 21 MG PATCH.TD24 TRANSDERMA (09:11)
[2023-03-19] MEDS: Docusate Sodium 100 MG CAPSULE PO ×2 (09:14→20:59)
[2023-03-19] MEDS: QUEtiapine Fumarate 50 MG TABLET PO ×2 (09:15→15:03)
[2023-03-19] MEDS: Cyanocobalamin (Vitamin B-12) 1,000 MCG TABLET 1000 MCG PO (09:15)
[2023-03-19] MEDS: Cholecalciferol (Vitamin D3) 10 MCG TABLET 20 MCG PO (09:15)
[2023-03-19] MEDS: Pregabalin 50 MG CAPSULE PO ×2 (09:15→20:59)
[2023-03-19] MEDS: Loratadine 10 MG TABLET PO (09:15)
[2023-03-19] MEDS: Folic Acid 1 MG TABLET PO (09:15)
[2023-03-19] MEDS: Thiamine HCL 100 MG TABLET PO (09:16)
[2023-03-19] MEDS: clonazePAM 0.5 MG TABLET PO ×3 (09:16→20:59)
[2023-03-19] MEDS: Propranolol HCL 10 MG TABLET PO ×2 (09:16→20:59)
[2023-03-19] MEDS: DULoxetine HCl 60 MG CAPSULE.DR PO (09:16)
[2023-03-19] MEDS: amLODIPine Besylate 5 MG TABLET PO (09:16)
[2023-03-19] MEDS: Benztropine Mesylate 0.5 MG TABLET PO ×2 (09:17→20:59)
[2023-03-19] MEDS: Perphenazine 4 MG TABLET PO ×2 (09:17→15:03)
[2023-03-19] MEDS: Multivitamin TABLET 1 TAB PO (09:18)
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
[2023-03-19] MEDS: Nicotine Polacrilex 2 MG GUM 4 MG BUCCAL ×2 (11:54→15:10)
[2023-03-19 17:36] VITALS: BP 130/63; PULSE 94; RESP 18; TEMP 36.6; O2SAT 99
[2023-03-19] MEDS: Nicotine Polacrilex Lozenge 4 MG LOZENGE BUCCAL (18:52)
[2023-03-19] MEDS: Prazosin HCL 5 MG CAPSULE PO (20:58)
[2023-03-19] MEDS: Divalproex Sodium ER 500 MG TAB.ER.24H 1000 MG PO (20:59)
[2023-03-19] MEDS: QUEtiapine Fumarate 400 MG TABLET PO (20:59)
[2023-03-19] MEDS: Mirtazapine 30 MG TABLET PO (20:59)
[2023-03-19] MEDS: Perphenazine 8 MG TABLET PO (20:59)
[2023-03-19] MEDS: Montelukast Sodium 10 MG TABLET PO (20:59)
--- NOTE | 2023-03-20 | ECG_ITS ---
Test Reason : R/O QTC PROLONGATION Blood Pressure : / mmHG Vent. Rate : 100 BPM Atrial Rate : 100 BPM P-R Int : 152 ms QRS Dur : 084 ms QT Int : 336 ms P-R-T Axes : 056 052 029 degrees QTc Int : 433 ms Normal sinus rhythm Nonspecific T wave abnormality Abnormal ECG No previous ECGs available Referred By: Kiersten Kramer Electronically Signed By:ROGER BINGHAM MD
[2023-03-20] MEDS: Omeprazole 40 MG CAPSULE.DR PO (05:58)
[2023-03-20 06:00] VITALS: BP 118/57; PULSE 93; RESP 18; TEMP 36.8; O2SAT 97
[2023-03-20] MEDS: Cyclobenzaprine HCl 10 MG TABLET PO ×3 (06:02→21:19)
[2023-03-20] MEDS: clonazePAM 0.5 MG TABLET PO ×3 (08:53→21:20)
[2023-03-20] MEDS: Acetaminophen 325 MG TABLET 650 MG PO ×2 (08:53→16:34)
[2023-03-20] MEDS: Nicotine Polacrilex Lozenge 4 MG LOZENGE BUCCAL (08:54)
[2023-03-20] MEDS: DULoxetine HCl 60 MG CAPSULE.DR PO (08:54)
[2023-03-20] MEDS: Benztropine Mesylate 0.5 MG TABLET PO ×2 (08:55→21:20)
[2023-03-20] MEDS: methocarbamoL 500 MG TABLET PO ×2 (08:55→16:34)
[2023-03-20] MEDS: Docusate Sodium 100 MG CAPSULE PO ×2 (08:55→21:20)
[2023-03-20] MEDS: Loratadine 10 MG TABLET PO (08:55)
[2023-03-20] MEDS: Multivitamin TABLET 1 TAB PO (08:55)
[2023-03-20] MEDS: amLODIPine Besylate 5 MG TABLET PO (08:55)
[2023-03-20] MEDS: Thiamine HCL 100 MG TABLET PO (08:55)
[2023-03-20] MEDS: QUEtiapine Fumarate 50 MG TABLET PO ×2 (08:55→14:38)
[2023-03-20] MEDS: Folic Acid 1 MG TABLET PO (08:55)
[2023-03-20] MEDS: Perphenazine 8 MG TABLET PO ×3 (08:55→21:19)
[2023-03-20] MEDS: Lidocaine 4 % Patch ADH..PATCH 2 PATCH TRANSDERMA ×4 (08:56→14:43)
[2023-03-20] MEDS: Pregabalin 50 MG CAPSULE PO ×2 (08:56→21:19)
[2023-03-20] MEDS: Cyanocobalamin (Vitamin B-12) 1,000 MCG TABLET 1000 MCG PO (08:56)
[2023-03-20] MEDS: Cholecalciferol (Vitamin D3) 10 MCG TABLET 20 MCG PO (09:51)
[2023-03-20] MEDS: Nicotine 21 MG PATCH.TD24 TRANSDERMA (09:57)
[2023-03-20] MEDS: hydrOXYzine HCL 25 MG TABLET PO (11:36)
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
[2023-03-20 16:56] VITALS: BP 125/74; PULSE 107; RESP 18; TEMP 36.4; O2SAT 99
[2023-03-20] MEDS: QUEtiapine Fumarate 400 MG TABLET PO (21:19)
[2023-03-20] MEDS: Mirtazapine 30 MG TABLET PO (21:19)
[2023-03-20] MEDS: Montelukast Sodium 10 MG TABLET PO (21:19)
[2023-03-20] MEDS: Divalproex Sodium ER 500 MG TAB.ER.24H PO (21:20)
[2023-03-20] MEDS: Prazosin HCL 5 MG CAPSULE PO (21:20)
[2023-03-20] MEDS: Propranolol HCL 10 MG TABLET PO (21:20)
[2023-03-21] MEDS: hydrOXYzine HCL 25 MG TABLET PO ×2 (02:24→11:27)
[2023-03-21] MEDS: Acetaminophen 325 MG TABLET 650 MG PO ×2 (02:24→18:00)
[2023-03-21] MEDS: Omeprazole 40 MG CAPSULE.DR PO (05:00)
[2023-03-21] MEDS: QUEtiapine Fumarate 50 MG TABLET PO ×3 (05:01→11:28)
[2023-03-21] MEDS: Nicotine 21 MG PATCH.TD24 TRANSDERMA (08:50)
[2023-03-21] MEDS: Propranolol HCL 10 MG TABLET PO ×2 (08:51→20:12)
[2023-03-21] MEDS: methocarbamoL 500 MG TABLET PO ×2 (08:51→18:01)
[2023-03-21] MEDS: Multivitamin TABLET 1 TAB PO (08:51)
[2023-03-21] MEDS: clonazePAM 0.5 MG TABLET PO ×2 (08:51→13:48)
[2023-03-21] MEDS: Loratadine 10 MG TABLET PO (08:51)
[2023-03-21] MEDS: Thiamine HCL 100 MG TABLET PO (08:51)
[2023-03-21] MEDS: amLODIPine Besylate 5 MG TABLET PO (08:51)
[2023-03-21] MEDS: Cyanocobalamin (Vitamin B-12) 1,000 MCG TABLET 1000 MCG PO (08:51)
[2023-03-21] MEDS: Benztropine Mesylate 0.5 MG TABLET PO ×2 (08:52→20:12)
[2023-03-21] MEDS: DULoxetine HCl 60 MG CAPSULE.DR PO (08:52)
[2023-03-21] MEDS: Folic Acid 1 MG TABLET PO (08:52)
[2023-03-21] MEDS: Docusate Sodium 100 MG CAPSULE PO ×2 (08:52→20:15)
[2023-03-21] MEDS: Perphenazine 8 MG TABLET PO ×3 (08:52→20:13)
[2023-03-21] MEDS: Pregabalin 50 MG CAPSULE PO ×2 (08:52→20:15)
[2023-03-21] MEDS: Cholecalciferol (Vitamin D3) 10 MCG TABLET 20 MCG PO (08:52)
[2023-03-21] MEDS: Nicotine Polacrilex Lozenge 4 MG LOZENGE BUCCAL ×2 (11:26→21:15)
[2023-03-21 11:52] VITALS: BP 117/65; PULSE 93; RESP 18; TEMP 36.2; O2SAT 98
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
[2023-03-21 20:05] VITALS: BP 118/59; PULSE 97; TEMP 36.2
[2023-03-21] MEDS: Divalproex Sodium ER 500 MG TAB.ER.24H PO (20:12)
[2023-03-21] MEDS: clonazePAM 1 MG TABLET 2 MG PO (20:14)
[2023-03-21] MEDS: Prazosin HCL 5 MG CAPSULE PO (20:14)
[2023-03-21] MEDS: QUEtiapine Fumarate 400 MG TABLET PO (20:15)
[2023-03-21] MEDS: Gabapentin 300 MG CAPSULE PO (20:15)
[2023-03-21] MEDS: Mirtazapine 30 MG TABLET PO (20:16)
[2023-03-21] MEDS: Montelukast Sodium 10 MG TABLET PO (20:16)
[2023-03-22] MEDS: QUEtiapine Fumarate 50 MG TABLET PO ×4 (01:19→19:48)
[2023-03-22] MEDS: Acetaminophen 325 MG TABLET 650 MG PO ×2 (05:22→16:21)
[2023-03-22] MEDS: Omeprazole 40 MG CAPSULE.DR PO (05:23)
[2023-03-22 08:40] VITALS: BP 127/60; PULSE 93; RESP 16; TEMP 36.6; O2SAT 99
[2023-03-22] MEDS: Fluticasone/Vilanterol 100/25 BLST.W.DEV 1 PUFF INHALE (08:58)
[2023-03-22] MEDS: Pregabalin 50 MG CAPSULE PO ×2 (09:03→19:31)
[2023-03-22] MEDS: Benztropine Mesylate 0.5 MG TABLET PO ×2 (09:03→21:29)
[2023-03-22] MEDS: Perphenazine 8 MG TABLET PO ×3 (09:03→21:30)
[2023-03-22] MEDS: Cholecalciferol (Vitamin D3) 10 MCG TABLET 20 MCG PO (09:03)
[2023-03-22] MEDS: DULoxetine HCl 60 MG CAPSULE.DR PO (09:03)
[2023-03-22] MEDS: Loratadine 10 MG TABLET PO (09:03)
[2023-03-22] MEDS: Thiamine HCL 100 MG TABLET PO (09:04)
[2023-03-22] MEDS: amLODIPine Besylate 5 MG TABLET PO (09:04)
[2023-03-22] MEDS: Cyanocobalamin (Vitamin B-12) 1,000 MCG TABLET 1000 MCG PO (09:04)
[2023-03-22] MEDS: Multivitamin TABLET 1 TAB PO (09:04)
[2023-03-22] MEDS: Docusate Sodium 100 MG CAPSULE PO ×2 (09:04→21:32)
[2023-03-22] MEDS: Folic Acid 1 MG TABLET PO (09:04)
[2023-03-22] MEDS: Propranolol HCL 10 MG TABLET PO ×2 (09:04→21:28)
[2023-03-22] MEDS: methocarbamoL 500 MG TABLET PO ×2 (09:12→16:20)
[2023-03-22] MEDS: hydrOXYzine HCL 25 MG TABLET PO (12:49)
[2023-03-22] MEDS: Cyclobenzaprine HCl 10 MG TABLET PO ×2 (12:49→19:28)
[2023-03-22] MEDS: Lidocaine 4 % Patch ADH..PATCH 2 PATCH TRANSDERMA (12:50)
[2023-03-22] MEDS: Nicotine 21 MG PATCH.TD24 TRANSDERMA (12:51)
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
[2023-03-22 15:23] LABS: IDNOW Serial# 08D9AD1C; Strep A Nucleic Acid Negative (Negative)
[2023-03-22] MEDS: Gabapentin 300 MG CAPSULE PO (19:30)
[2023-03-22 21:10] VITALS: BP 121/65; PULSE 102; TEMP 35.7
[2023-03-22] MEDS: clonazePAM 1 MG TABLET 2 MG PO (21:27)
[2023-03-22] MEDS: QUEtiapine Fumarate 400 MG TABLET PO (21:27)
[2023-03-22] MEDS: Montelukast Sodium 10 MG TABLET PO (21:28)
[2023-03-22] MEDS: Prazosin HCL 5 MG CAPSULE PO (21:31)
[2023-03-22] MEDS: Mirtazapine 30 MG TABLET PO (21:32)
[2023-03-22] MEDS: Divalproex Sodium ER 500 MG TAB.ER.24H PO (21:32)
[2023-03-22] MEDS: Capsaicin 0.025% Cream 60 GM TUBE 1 APPL TOPICAL (21:33)
[2023-03-23 09:00] VITALS: BP 117/63; PULSE 95; RESP 16; TEMP 36; O2SAT 96
[2023-03-23] MEDS: Fluticasone/Vilanterol 100/25 BLST.W.DEV 1 PUFF INHALE (09:06)
[2023-03-23] MEDS: Capsaicin 0.025% Cream 60 GM TUBE 1 APPL TOPICAL ×2 (09:06→18:06)
[2023-03-23] MEDS: QUEtiapine Fumarate 50 MG TABLET PO ×3 (09:07→16:58)
[2023-03-23] MEDS: Docusate Sodium 100 MG CAPSULE PO ×2 (09:07→21:02)
[2023-03-23] MEDS: Omeprazole 40 MG CAPSULE.DR PO (09:07)
[2023-03-23] MEDS: Benztropine Mesylate 0.5 MG TABLET PO ×2 (09:07→21:00)
[2023-03-23] MEDS: amLODIPine Besylate 5 MG TABLET PO (09:07)
[2023-03-23] MEDS: Thiamine HCL 100 MG TABLET PO (09:07)
[2023-03-23] MEDS: DULoxetine HCl 60 MG CAPSULE.DR PO (09:07)
[2023-03-23] MEDS: Propranolol HCL 10 MG TABLET PO ×2 (09:07→21:01)
[2023-03-23] MEDS: Loratadine 10 MG TABLET PO (09:07)
[2023-03-23] MEDS: Perphenazine 8 MG TABLET PO ×3 (09:08→20:59)
[2023-03-23] MEDS: Folic Acid 1 MG TABLET PO (09:08)
[2023-03-23] MEDS: Cholecalciferol (Vitamin D3) 10 MCG TABLET 20 MCG PO (09:08)
[2023-03-23] MEDS: Cyanocobalamin (Vitamin B-12) 1,000 MCG TABLET 1000 MCG PO (09:08)
[2023-03-23] MEDS: Pregabalin 50 MG CAPSULE PO ×2 (09:08→20:59)
[2023-03-23] MEDS: Multivitamin TABLET 1 TAB PO (09:08)
[2023-03-23] MEDS: methocarbamoL 500 MG TABLET PO ×2 (09:47→16:57)
[2023-03-23] MEDS: Acetaminophen 325 MG TABLET 650 MG PO ×2 (09:47→16:55)
[2023-03-23] MEDS: Nicotine 21 MG PATCH.TD24 TRANSDERMA (09:48)
[2023-03-23] MEDS: Nicotine Polacrilex 2 MG GUM 4 MG BUCCAL ×4 (09:48→16:58)
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
[2023-03-23] MEDS: hydrOXYzine HCL 25 MG TABLET PO ×2 (11:54→20:58)
[2023-03-23] MEDS: Cyclobenzaprine HCl 10 MG TABLET PO (14:45)
[2023-03-23] MEDS: Benzocaine 20 % Oral Gel 9 GM TUBE 1 APPL MUCOUS MEM (18:01)
[2023-03-23 20:50] VITALS: BP 115/74; PULSE 94; TEMP 36.3
[2023-03-23] MEDS: Prazosin HCL 5 MG CAPSULE PO (20:58)
[2023-03-23] MEDS: Gabapentin 300 MG CAPSULE PO (20:59)
[2023-03-23] MEDS: clonazePAM 1 MG TABLET 2 MG PO (21:00)
[2023-03-23] MEDS: Divalproex Sodium ER 500 MG TAB.ER.24H PO (21:00)
[2023-03-23] MEDS: QUEtiapine Fumarate 400 MG TABLET PO (21:01)
[2023-03-23] MEDS: Mirtazapine 30 MG TABLET PO (21:01)
[2023-03-23] MEDS: Montelukast Sodium 10 MG TABLET PO (21:01)
[2023-03-24] MEDS: Omeprazole 40 MG CAPSULE.DR PO (05:59)
[2023-03-24] MEDS: hydrOXYzine HCL 25 MG TABLET PO ×2 (06:12→16:43)
[2023-03-24] MEDS: Acetaminophen 325 MG TABLET 650 MG PO ×2 (06:12→16:43)
[2023-03-24 09:18] VITALS: BP 105/66; PULSE 100; RESP 16; TEMP 36.8; O2SAT 97
[2023-03-24] MEDS: Thiamine HCL 100 MG TABLET PO (09:21)
[2023-03-24] MEDS: Cyanocobalamin (Vitamin B-12) 1,000 MCG TABLET 1000 MCG PO (09:21)
[2023-03-24] MEDS: QUEtiapine Fumarate 50 MG TABLET PO ×3 (09:21→16:43)
[2023-03-24] MEDS: Benztropine Mesylate 0.5 MG TABLET PO ×2 (09:21→20:42)
[2023-03-24] MEDS: DULoxetine HCl 60 MG CAPSULE.DR PO (09:21)
[2023-03-24] MEDS: amLODIPine Besylate 5 MG TABLET PO (09:21)
[2023-03-24] MEDS: Loratadine 10 MG TABLET PO (09:22)
[2023-03-24] MEDS: Multivitamin TABLET 1 TAB PO (09:22)
[2023-03-24] MEDS: Propranolol HCL 10 MG TABLET PO ×2 (09:22→20:42)
[2023-03-24] MEDS: Pregabalin 50 MG CAPSULE PO ×2 (09:22→20:42)
[2023-03-24] MEDS: Docusate Sodium 100 MG CAPSULE PO ×2 (09:22→20:42)
[2023-03-24] MEDS: Folic Acid 1 MG TABLET PO (09:22)
[2023-03-24] MEDS: Cholecalciferol (Vitamin D3) 10 MCG TABLET 20 MCG PO (09:22)
[2023-03-24] MEDS: Perphenazine 8 MG TABLET PO ×3 (09:22→20:42)
[2023-03-24] MEDS: Fluticasone/Vilanterol 100/25 BLST.W.DEV 1 PUFF INHALE (11:19)
[2023-03-24] MEDS: methocarbamoL 500 MG TABLET PO (12:17)
[2023-03-24] MEDS: Benzocaine 20 % Oral Gel 9 GM TUBE 1 APPL MUCOUS MEM (12:56)
[2023-03-24] MEDS: Nicotine Polacrilex 2 MG GUM 4 MG BUCCAL ×2 (12:57→16:43)
[2023-03-24] MEDS: Nicotine 21 MG PATCH.TD24 TRANSDERMA (12:57)
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
[2023-03-24 18:00] VITALS: BP 131/76; PULSE 102; RESP 18; TEMP 36.7
--- NOTE | 2023-03-24 18:29 | PC.NURSE ---
at 1829 patient c/o right lung pain, the same pain she had with pneumonia when she was admitted. Hospitalist Dr. Reno notified and aware via [employer]. Pt will be seen by hospitalist in the morning per Dr. Reno.
[2023-03-24] MEDS: Albuterol Sulfate 90 MCG 8 GM INHALER 2 PUFF INHALE (18:35)
[2023-03-24] MEDS: guaiFENesin 200 MG/10 ML 10 ML LIQUID PO (18:35)
--- NOTE | 2023-03-24 20:36 | PM.EVENT ---
Event Note Date of Service: 03/24/23 Event Note: Hospitalist consult for continued pleuritic chest pain s/p treatment for pneumonia. Patient originally diagnosed with pneumonia on 03/07/2023 for which she took cefuroxime 500 mg b.i.d. and doxycycline 100 mg b.i.d. x5 days. On 03/02/2023 patient complained of continuing pleuritic chest pain and shortness of breath. D-dimer was ordered that was WNL and chest x-ray showed clear lungs. Patient today states she has really not felt any better since starting treatment for pneumonia. Says she continues to cough phlegm that is sometimes flecked with blood. Continues to feel fatigued and short of breath. Patient claims she has a history of pulmonary embolism 4-5 years ago. She was originally on Xarelto but states she stopped anticoagulation prior to a hysterectomy. When asked why she did not resume Xarelto post surgery patient was unable to provide a clear answer. Also complains of abdominal pain and bloating for the past 6-7 weeks. States she is also ?prone to bowel obstructions? and has seen blood in her stool. Denies diarrhea, and states she has been going to the bathroom with more regularity here than at home. Patient's stool was negative for occult blood on 03/17/2023. Patient also notes that she is allergic to aspirin, codeine, NSAIDs, tramadol. Reports having ?anaphylaxis? to ibuprofen. Upon physical examination lungs are clear to auscultation, no wheezing, rhonchi, rales noted. Patient has diffuse back tenderness. Has diffuse abdominal tenderness. Will get D-Dimer to r/o PE Will get CXR to evaluate for pneumonia Will get abdominal ultrasounds to r/o acute bowel Time Spent With Patient Time: Total time managing care of this patient today ____ minutes.
[2023-03-24] MEDS: Gabapentin 300 MG CAPSULE PO (20:42)
[2023-03-24] MEDS: Prazosin HCL 5 MG CAPSULE PO (20:42)
[2023-03-24] MEDS: Divalproex Sodium ER 500 MG TAB.ER.24H PO (20:42)
[2023-03-24] MEDS: Mirtazapine 30 MG TABLET PO (20:42)
[2023-03-24] MEDS: QUEtiapine Fumarate 400 MG TABLET PO (20:42)
[2023-03-24] MEDS: Montelukast Sodium 10 MG TABLET PO (20:42)
[2023-03-24] MEDS: clonazePAM 1 MG TABLET 2 MG PO (20:43)
[2023-03-24 21:11] LABS: D Dimer High Sensitivity 179 NG/ML
[2023-03-25] MEDS: QUEtiapine Fumarate 50 MG TABLET PO ×4 (01:58→15:34)
[2023-03-25] MEDS: Omeprazole 40 MG CAPSULE.DR PO (06:23)
[2023-03-25] MEDS: Acetaminophen 325 MG TABLET 650 MG PO ×2 (06:25→20:07)
[2023-03-25 08:00] VITALS: BP 117/61; PULSE 92; RESP 16; TEMP 36; O2SAT 97
[2023-03-25] MEDS: Benztropine Mesylate 0.5 MG TABLET PO ×2 (08:07→20:10)
[2023-03-25] MEDS: Fluticasone/Vilanterol 100/25 BLST.W.DEV 1 PUFF INHALE (08:07)
[2023-03-25] MEDS: Thiamine HCL 100 MG TABLET PO (08:07)
[2023-03-25] MEDS: Propranolol HCL 10 MG TABLET PO ×2 (08:07→20:10)
[2023-03-25] MEDS: DULoxetine HCl 60 MG CAPSULE.DR PO (08:08)
[2023-03-25] MEDS: Folic Acid 1 MG TABLET PO (08:08)
[2023-03-25] MEDS: Docusate Sodium 100 MG CAPSULE PO ×2 (08:08→20:10)
[2023-03-25] MEDS: Multivitamin TABLET 1 TAB PO (08:08)
[2023-03-25] MEDS: Loratadine 10 MG TABLET PO (08:08)
[2023-03-25] MEDS: amLODIPine Besylate 5 MG TABLET PO (08:08)
[2023-03-25] MEDS: Perphenazine 8 MG TABLET PO ×3 (08:08→20:10)
[2023-03-25] MEDS: Cyanocobalamin (Vitamin B-12) 1,000 MCG TABLET 1000 MCG PO (08:08)
[2023-03-25] MEDS: Cholecalciferol (Vitamin D3) 10 MCG TABLET 20 MCG PO (08:08)
[2023-03-25] MEDS: Pregabalin 50 MG CAPSULE PO ×2 (08:08→20:10)
[2023-03-25] MEDS: Albuterol Sulfate 90 MCG 8 GM INHALER 2 PUFF INHALE (08:13)
[2023-03-25] MEDS: Nicotine Polacrilex 2 MG GUM 4 MG BUCCAL ×2 (08:27→14:36)
[2023-03-25] MEDS: Cyclobenzaprine HCl 10 MG TABLET PO ×2 (09:31→20:09)
[2023-03-25] MEDS: hydrOXYzine HCL 25 MG TABLET PO ×2 (09:31→15:34)
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
[2023-03-25] MEDS: clonazePAM 0.5 MG TABLET PO ×2 (12:12→18:27)
[2023-03-25] MEDS: Lidocaine 4 % Patch ADH..PATCH 2 PATCH TRANSDERMA (14:30)
[2023-03-25] MEDS: Capsaicin 0.025% Cream 60 GM TUBE 1 APPL TOPICAL (14:30)
[2023-03-25 17:56] VITALS: BP 106/55; PULSE 102; RESP 18; TEMP 36.6; O2SAT 98
[2023-03-25] MEDS: clonazePAM 1 MG TABLET 2 MG PO (20:09)
[2023-03-25] MEDS: Montelukast Sodium 10 MG TABLET PO (20:09)
[2023-03-25] MEDS: Mirtazapine 30 MG TABLET PO (20:10)
[2023-03-25] MEDS: Gabapentin 300 MG CAPSULE PO (20:10)
[2023-03-25] MEDS: Prazosin HCL 5 MG CAPSULE PO (20:10)
[2023-03-25] MEDS: Divalproex Sodium ER 500 MG TAB.ER.24H PO (20:10)
[2023-03-25] MEDS: QUEtiapine Fumarate 400 MG TABLET PO (20:10)
[2023-03-25 21:24] VITALS: BP 132/66; PULSE 104; RESP 17; TEMP 36.6; O2SAT 96
[2023-03-26] MEDS: Omeprazole 40 MG CAPSULE.DR PO (06:31)
[2023-03-26] MEDS: Acetaminophen 325 MG TABLET 650 MG PO (06:33)
[2023-03-26 09:00] VITALS: BP 132/82; PULSE 87; RESP 16; TEMP 36; O2SAT 96
[2023-03-26] MEDS: Pregabalin 50 MG CAPSULE PO ×2 (09:00→21:00)
[2023-03-26] MEDS: Cholecalciferol (Vitamin D3) 10 MCG TABLET 20 MCG PO (09:00)
[2023-03-26] MEDS: Docusate Sodium 100 MG CAPSULE PO ×2 (09:00→21:00)
[2023-03-26] MEDS: Fluticasone/Vilanterol 100/25 BLST.W.DEV 1 PUFF INHALE (09:00)
[2023-03-26] MEDS: DULoxetine HCl 60 MG CAPSULE.DR PO (09:00)
[2023-03-26] MEDS: Folic Acid 1 MG TABLET PO (09:00)
[2023-03-26] MEDS: Benztropine Mesylate 0.5 MG TABLET PO ×2 (09:01→21:01)
[2023-03-26] MEDS: Perphenazine 8 MG TABLET PO ×3 (09:01→21:01)
[2023-03-26] MEDS: Propranolol HCL 10 MG TABLET PO ×2 (09:01→21:01)
[2023-03-26] MEDS: Multivitamin TABLET 1 TAB PO (09:01)
[2023-03-26] MEDS: Thiamine HCL 100 MG TABLET PO (09:01)
[2023-03-26] MEDS: Cyanocobalamin (Vitamin B-12) 1,000 MCG TABLET 1000 MCG PO (09:01)
[2023-03-26] MEDS: amLODIPine Besylate 5 MG TABLET PO (09:01)
[2023-03-26] MEDS: QUEtiapine Fumarate 50 MG TABLET PO (09:01)
[2023-03-26] MEDS: Loratadine 10 MG TABLET PO (09:01)
[2023-03-26] MEDS: Nicotine Polacrilex 2 MG GUM 4 MG BUCCAL ×2 (09:57→14:53)
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
[2023-03-26] MEDS: Capsaicin 0.025% Cream 60 GM TUBE 1 APPL TOPICAL ×2 (11:13→21:06)
[2023-03-26] MEDS: QUEtiapine Fumarate 100 MG TABLET PO ×2 (14:50→16:50)
[2023-03-26] MEDS: Acetaminophen 325 MG TABLET 975 MG PO (14:50)
[2023-03-26] MEDS: clonazePAM 0.5 MG TABLET PO (15:30)
[2023-03-26] MEDS: Cyclobenzaprine HCl 10 MG TABLET PO (16:49)
[2023-03-26] MEDS: hydrOXYzine HCL 25 MG TABLET PO ×2 (16:50→22:25)
[2023-03-26 20:16] VITALS: BP 147/76; PULSE 100; RESP 18; TEMP 36.1
[2023-03-26] MEDS: Gabapentin 300 MG CAPSULE PO (21:00)
[2023-03-26] MEDS: Divalproex Sodium ER 500 MG TAB.ER.24H PO (21:00)
[2023-03-26] MEDS: Mirtazapine 30 MG TABLET PO (21:01)
[2023-03-26] MEDS: QUEtiapine Fumarate 400 MG TABLET PO (21:01)
[2023-03-26] MEDS: Prazosin HCL 5 MG CAPSULE PO (21:01)
[2023-03-26] MEDS: Montelukast Sodium 10 MG TABLET PO (21:01)
[2023-03-26] MEDS: clonazePAM 1 MG TABLET 2 MG PO (21:49)
[2023-03-27] MEDS: Acetaminophen 325 MG TABLET 975 MG PO ×2 (01:49→12:47)
[2023-03-27] MEDS: methocarbamoL 500 MG TABLET PO (01:49)
[2023-03-27] MEDS: Nicotine Polacrilex 2 MG GUM 4 MG BUCCAL ×2 (01:51→10:20)
[2023-03-27] MEDS: Benzocaine 20 % Oral Gel 9 GM TUBE 1 APPL MUCOUS MEM ×2 (01:52→10:23)
[2023-03-27] MEDS: Omeprazole 40 MG CAPSULE.DR PO (06:15)
[2023-03-27 10:00] VITALS: BP 116/67; PULSE 101; RESP 18; TEMP 37; O2SAT 100
[2023-03-27] MEDS: Cholecalciferol (Vitamin D3) 10 MCG TABLET 20 MCG PO (10:07)
[2023-03-27] MEDS: Perphenazine 8 MG TABLET PO (10:08)
[2023-03-27] MEDS: Folic Acid 1 MG TABLET PO (10:08)
[2023-03-27] MEDS: DULoxetine HCl 60 MG CAPSULE.DR PO (10:09)
[2023-03-27] MEDS: Thiamine HCL 100 MG TABLET PO (10:09)
[2023-03-27] MEDS: Cyanocobalamin (Vitamin B-12) 1,000 MCG TABLET 1000 MCG PO (10:09)
[2023-03-27] MEDS: Benztropine Mesylate 0.5 MG TABLET PO (10:09)
[2023-03-27] MEDS: Pregabalin 50 MG CAPSULE PO (10:09)
[2023-03-27] MEDS: Docusate Sodium 100 MG CAPSULE PO (10:10)
[2023-03-27] MEDS: amLODIPine Besylate 5 MG TABLET PO (10:10)
[2023-03-27] MEDS: Loratadine 10 MG TABLET PO (10:10)
[2023-03-27] MEDS: Multivitamin TABLET 1 TAB PO (10:10)
[2023-03-27] MEDS: Propranolol HCL 10 MG TABLET PO (10:10)
[2023-03-27] MEDS: clonazePAM 0.5 MG TABLET PO (10:19)
[2023-03-27] MEDS: QUEtiapine Fumarate 100 MG TABLET PO (10:19)
[2023-03-27] MEDS: Fluticasone/Vilanterol 100/25 BLST.W.DEV 1 PUFF INHALE (10:19)
[2023-03-27] MEDS: Albuterol Sulfate 90 MCG 8 GM INHALER 2 PUFF INHALE (10:23)
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
== END 2023-03-27 13:58 | disposition home or self-care (01) | DRG 885 ==
PROVIDERS: Physician Assistant; Psychiatry & Neurology Psychiatry; Student in an Organized Health Care Education/Training Program; Admitting Provider Psychiatry & Neurology Psychiatry; PCP Internal Medicine; Visit Provider Clinical Nurse Specialist Psychiatric/Mental Health, Adult
DX: F25.0 Schizoaffective disorder, bipolar type (principal); J18.9 Pneumonia, unspecified organism; R45.851 Suicidal ideations; I10 Essential (primary) hypertension; J45.30 Mild persistent asthma, uncomplicated; F41.9 Anxiety disorder, unspecified; F43.10 Post-traumatic stress disorder, unspecified; F19.10 Other psychoactive substance abuse, uncomplicated; F17.210 Nicotine dependence, cigarettes, uncomplicated; Z71.6 Tobacco abuse counseling; Z91.410 Personal history of adult physical and sexual abuse; Z86.711 Personal history of pulmonary embolism; Z79.51 Long term (current) use of inhaled steroids; Z79.899 Other long term (current) drug therapy
CPT/HCPCS: 36415; 71045; 76700; 80053; 80061; 82272; 82607; 82746; 83036; 83540; 83735; 84439; 84443; 84550; 85025; 85379; 87651; 93005

== ENCOUNTER 2023-03-07 14:30 | Outpatient (BNV) | payer OTHER, SELFPAY | END 2023-03-20 11:03 | PROVIDERS: Admitting Provider Psychiatry & Neurology Psychiatry; PCP Internal Medicine; Visit Provider Internal Medicine Cardiovascular Disease | DX: R94.31 Abnormal electrocardiogram [ECG] [EKG] (principal) | CPT/HCPCS: 93010 ==

== ENCOUNTER → 2023-03-07 14:30 | Outpatient (BNV) | payer OTHER, SELFPAY | PROVIDERS: Admitting Provider Psychiatry & Neurology Psychiatry; PCP Internal Medicine; Visit Provider Physician Assistant | DX: I10 Essential (primary) hypertension (principal); J45.30 Mild persistent asthma, uncomplicated; J06.9 Acute upper respiratory infection, unspecified | CPT/HCPCS: 99222; 99499 ==

== ENCOUNTER → 2023-03-07 14:30 | Outpatient (BNV) | payer OTHER, SELFPAY | PROVIDERS: Admitting Provider Psychiatry & Neurology Psychiatry; PCP Internal Medicine; Visit Provider Clinical Nurse Specialist Psychiatric/Mental Health, Adult | DX: F43.11 Post-traumatic stress disorder, acute (principal); F25.0 Schizoaffective disorder, bipolar type; F19.90 Other psychoactive substance use, unspecified, uncomplicated | CPT/HCPCS: 90792; 99231; 99232; 99239 ==

== ENCOUNTER 2023-03-30 13:52 | Inpatient (IN) | payer OTHER, SELFPAY ==
--- NOTE | ~2023-03-30 | XR_ITS ---
EXAMINATION: XR CHEST CLINICAL INFORMATION: Reason pneumonia. Upper respiratory infection symptoms COMPARISON: Chest radiograph 03/24/2023, and multiple prior exams TECHNIQUE: Frontal view of the chest was obtained. FINDINGS: Again there is a subtle right basilar opacity, similar in appearance to the prior exam. No pneumothorax. Normal cardiomediastinal silhouette. No pleural effusion. Degenerative changes of the right glenohumeral joint. Surgical anchor in the left humeral head. XR/XR chest 1V IMPRESSION: Subtle right basilar opacity, similar to prior exam, which may represent atelectasis or infectious process.
--- OUTSIDE RECORDS SUMMARY | 2023-03-30 13:56 | XMS_ITS | Continuity of Care Document ---
Author Name Unknown Organization [facility] ter Address [address] [place] [id number]- Care Team Providers Care Director Of Dietary Name Role Phone Terrie Kruger NP Primary Care Physician Encounter [facility] R [id number] Date(s): 04/28/21 - 04/28/[address] [address]- Encounter Diagnosis Acute sore throat(Final) - 04/28/21 Encounter for medication refill(Final) - 04/28/21 Discharge Disposition: A-D/C Home Attending Physician: Sarah Richardson MD Admitting Physician: Sarah Richardson MD Referring Physician: Not on Staff, Referring MD Allergies, Adverse Reactions, Alerts Substance Reaction Severity Status codeine Active aspirin Active Haldol Active NSAIDs Active PROzac Active TraMADol Hydrochloride Activ e Immunizations Given and Recorded Vaccine Date Status Refusal Reason SARS-CoV-2 (COVID-19) Ad26 vaccine 1 02/15/21 Give n Influenza Virus Vaccine (oldterm) 06/11/20 Recorde d 1Result Comment: [facility] 41777-099-45 Medications Albuterol (Eqv-ProAir HFA) 90 mcg/inh inhalation aerosol 0 Refills, Maintenance, 04/02/21 11:07:00 EDT, Partial fill upon patient request if the prescription is for a schedule II opioid drug. Start Date: 04/02/21 Status: Ordered amLODIPine 10 mg oral tablet 1 tablet = 10 mg, By Mouth, Daily, # 30 tablet, 0 Refills, Maintenance, 04/02/21 11:07:00 EDT, Tablet, Partial fill upon patient request if the prescription is for a schedule II opioid drug. Start Date: 04/02/21 Status: Ordered amoxicillin 875 mg oral tablet 1 tablet = 875 mg, By Mouth, Daily, for 10 days, # 10 tablet, 0 Refills, Acute 05/08/21 12:56:00 EDT, 04/28/21 12:56:00 EDT, Tablet, [id number], Partial fill upon patient request if the prescription is for a schedule II opioid... Start Date: 04/28/21 Stop Date: 05/08/21 Status: Ordered benzocaine-menthol 5%-1% topical spray 1 sprays, Topically, Daily, PRN as needed for pain, gargle and swish, hold for 1 minute, then spit out, # 177 mL, 0 Refills, Acute 04/29/22 13:01:00 EDT, 04/28/21 12:59:00 EDT, [place], [id number], Partial fill upon patient reque... Start Date: 04/28/21 Stop Date: 04/29/22 Status: Ordered benztropine 1 mg oral tablet 1 mg, 1, tablet, By Mouth, Daily at bedtime, # 30 tablet, Refills 0, Tot. Refills 0, Maintenance, 04/28/21 12:55:00 EDT, Route to Pharmacy Electronically, [id number], Partial fill upon patient request if the prescription is for... Start Date: 04/28/21 Status: Ordered benztropine 1 mg oral tablet 1 mg, 1, tablet, By Mouth, Daily at bedtime, # 7 tablet, Refills 4, Tot. Refills 4, Maintenance, 04/09/21 11:42:00 EDT, Route to Pharmacy Electronically, [id number], Partial fill upon patient request if the prescription is for... Start Date: 04/09/21 Stop Date: 05/14/21 Status: Ordered Breo Ellipta 200 mcg-25 mcg/inh inhalation powder 1 puffs, Inhalation, Daily, 0 Refills, Maintenance, 04/02/21 11:06:00 EDT, Powder, Partial fill upon patient request if the prescription is for a schedule II opioid drug. Start Date: 04/02/21 Status: Ordered cyclobenzaprine 10 mg oral tablet 10 mg, 1, tablet, By Mouth, 3 times a day, PRN, # 30 tablet, Refills 0, Maintenance, for spasm, 04/02/21 11:07:00 EDT, Partial fill upon patient request if the prescription is for a schedule II opioid drug. Start Date: 04/02/21 Status: Ordered hydrocortisone 2.5% topical ointment 1 application, Topically, 2 times a day, # 20 Gm, 0 Refills, Maintenance, 04/02/21 11:07:00 EDT, Ointment, Partial fill upon patient request if the prescription is for a schedule II opioid drug. Start Date: 04/02/21 Status: Ordered lidocaine 5% topical film See Instructions, Topically Daily, # 10 patch, 0 Refills, Maintenance, 04/09/21 11:42:00 EDT, Patch, [id number], Partial fill upon patient request if the prescription is for aschedule II opioid drug., Topically Daily, 177, cm,... Start Date: 04/09/21 Status: Ordered losartan 25 mg oral tablet 1 tablet = 25 mg, By Mouth, Daily, # 30 tablet, 0 Refills, Maintenance, 04/02/21 11:08:00 EDT, Tablet, Partial fill upon patient request if the prescription is for a schedule II opioid drug. Start Date: 04/02/21 Status: Ordered Mapap Arthritis Pain 650 mg oral tablet, extended release 2 tablet = 1,300 mg, By Mouth, Every 8 hours, PRN as needed for pain, # 24 tablet, 0 Refills, Maintenance, 04/02/21 11:08:00 EDT, ER Tablet, Partial fill upon patient request if the prescription is for a schedule II opioid drug. Start Date: 04/02/21 Status: Ordered montelukast 10 mg oral tablet 10 mg, 1, tablet, By Mouth, Daily in PM, # 30 tablet, Refills 0, Maintenance, 04/02/21 11:07:00 EDT, Partial fill upon patient request if the prescription is for a schedule II opioid drug. Start Date: 04/02/21 Status: Ordered SEROquel 100 mg oral tablet 100 mg, 1, tablet, By Mouth, Daily at bedtime, # 30 tablet, Refills 0, Tot. Refills 0, Maintenance,04/28/21 12:54:00 EDT, Route to Pharmacy Electronically, [id number], Partial fill upon patient request if the prescription is f... Start Date: 04/28/21 Status: Ordered SEROquel 100 mg oral tablet 100 mg, 1, tablet, By Mouth, Daily at bedtime, # 7 tablet, Refills 4, Tot. Refills 4, Maintenance, 04/09/21 11:42:00 EDT, Route to Pharmacy Electronically, [id number], Partialfill upon patient request if the prescription is fo... Start Date: 04/09/21 Stop Date: 05/14/21 Status: Ordered SEROquel 25 mg oral tablet 50 mg, 2, tablet, By Mouth, 2 times a day, # 120 tablet, Refills 0, Tot. Refills 0, Maintenance, 04/28/21 12:55:00 EDT, Route to Pharmacy Electronically, [id number], Partial fill upon patient request if the prescription is for... Start Date: 04/28/21 Status: Ordered SEROquel 25 mg oral tablet 50 mg, 2, tablet, By Mouth, 2 times a day, # 28 tablet, Refills 4, Tot. Refills 4, Maintenance, 04/09/21 11:42:00 EDT, Route to Pharmacy Electronically, [id number], Partial fill upon patient request if the prescription is for a... Start Date: 04/09/21 Stop Date: 05/14/21 Status: Ordered Spiriva Respimat 1.25 mcg/inh inhalation aerosol 2 puffs, Inhalation, Daily, # 4 Gm, 0 Refills, Maintenance, 04/02/21 11:07:00 EDT, Aerosol, Partialfill upon patient request if the prescription is for a schedule II opioid drug. Start Date: 04/02/21 Status: Ordered topiramate 50 mg oral capsule, extended release 1 capsule = 50 mg, By Mouth, Daily, # 30 capsule, 0 Refills, Maintenance, 04/28/21 12:55:00 EDT, ERCapsule, [facility], Partial fill upon patient request if the prescription is for a schedule II opioid drug., 177, cm, 04/23/21... Start Date: 04/28/21 Status: Ordered topiramate 50 mg oral tablet 1 tablet = 50 mg, By Mouth, Daily, # 7 tablet, 4 Refills, Maintenance, 04/09/21 11:43:00 EDT, Tablet, [facility], Partial fill upon patient request if the prescription is for a schedule II opioid drug., 177, cm, 04/09/21 11:26:... Start Date: 04/09/21 Stop Date: 05/14/21 Status: Ordered Problem List Condition Effective Dates Status Health Status Inform ant Asthma(Confirmed) Active HTN (hypertension)(Confirmed) Active Fibrodysplasia ossificans congenita(Confirmed) Active Herniated lumbar interverteb ral disc(Confirmed) Active Results Orders for Microbiology Reports Name Date Group A Strep Screen and Culture 04/28/21 Microbiology Reports TEST:Group A Strep Screen and Culture STATUS:Unauthenticated BODY SITE: SOURCE:THROAT COLLECTED DATE/TIME:04/28/21 8:30 AM Group A Strep Screen and Culture SPECIMEN DESCRIPTION : THROAT SWAB SPECIAL REQUESTS : NONE DIRECT EXAM : RAPID GROUP A RESULT IS NEGATIVE, REFER TO CULTURE RESULT. REPORT STATUS : PRELIMINARY REPORT Radiology Reports * Exam Date Time Procedure Performing Provider Status 04/28/21 9:13 AM Chest 2 Views Frontal and Lat Rigoberto Reis; Auth (Verified) Notes: (Chest 2 Views Frontal and Lat) Reason For Exam: Chest Pain;Other: RESULT: Chest 2 Views Frontal and Lat Chest 2 Views Frontal and Lat Hx of Present Illness: pt c o of sore throat, ear pain, fevers, sob and chest pain for three days. states recently admitted last week for mental health issues , denies si hi now. also out of psych rx meds x3 days.; Reason: Other:; Chest Pain; Clinical Question(s): Other: COMPARISON: 07/15/2020. FINDINGS: LINES AND TUBES: None. LUNGS AND PLEURA: Clear lungs. Normal pulmonary vascularity. No pleural effusion. No pneumothorax. HEART, MEDIASTINUM AND CASSY: Heart is normal in size. Normal upper mediastinal and hilar contour. BONES AND SOFT TISSUES: Moderate degenerative change right shoulder. Probable prior surgery left shoulder. IMPRESSION: No evidence of acute cardiopulmonary disease is seen. WSN: [id number] Ordering Physician: Leonard White Dictated By: Azar ÁLVAREZ, Santiago Kapoor Dictated Date/Time: 04/28/21 9:28 am Reviewed By: Santiago Askew MD, V Signed By: Santiago Askew MD, V Signed Date/Time: 04/28/21 9:28 am Transcribed By: CALEB Transcribed Date/Time: 04/28/21 9:26 am Vital Signs Most recent to oldest [Reference Range]: 1 2 3 Oxygen Saturation [94-100 %] 97 % (04/28/21 8:13 AM) 98 % (04/28/21 8:01 AM) Pulse Rate [55-90 bpm] 76 bpm (04/28/21 1:24 PM) 97 bpm *H* (04/28/21 8:13 AM) 104 bpm *H* (04/28/21 8:01 AM) Blood Pressure [90-138/55-84 mm Hg] 137/88mm Hg (04/28/21 1:24 PM) 145/84mm Hg *H* (04/28/21 8:13 AM) Respiratory Rate [16-30 br/min] 18 br/min (04/28/21 8:13 AM) Temperature [96.8-100.4 DegF] 98.1 DegF (04/28/21 1:24 PM) 99.0 DegF (04/28/21 8:13 AM) Mode of Delivery (Oxygen) Room air (04/28/21 8:13 AM) Room air (04/28/21 8:01 AM) Temperature Route Oral (04/28/21 1:24 PM) Oral (04/28/21 8:13 AM) Social History Social History Type Response Smoking Status 5-9 cigarettes (betw een 1/4 to 1/2 pack)/day in last 30 days; Other: 4 / day now; entered on: 02/15/21 Sex
--- OUTSIDE RECORDS SUMMARY | 2023-03-30 13:56 | XMS_ITS | Continuity of Care Document ---
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 Role Phone Not on Staff, PCP Primary Care Physician Unavail able Encounter [facility] Date(s): 04/19/22 - 04/26/22 [facility] [address] [place] [address]- Encounter Diagnosis Right hip pain(Discharge Diagnosis) - 04/19/22 Low back pain(Discharge Diagnosis) - 04/19/22 Attending Physician: Angel Stanford DO Referring Physician: Not on Staff, Referring MD Allergies, Adverse Reactions, Alerts Substance Reaction Severity Status codeine Active aspirin Active Haldol Active NSAIDs Active PROzac Active TraMADol Hydrochloride Activ e Immunizations Given and Recorded Vaccine Date Status Refusal Reason tetanus/diphtheria/pertussis, acel(Tdap) 1 05/14/21 Given SARS-CoV-2 (COVID-19) Ad26 vaccine 2 02/15/21 Give n Influenza Virus Vaccine (oldterm) 06/11/20 Recorde d 1Result Comment: [facility] [id number] 2Result Comment: [facility] [id number] Medications amLODIPine 10 mg oral tablet 1 tablet = 10 mg, By Mouth, Daily, # 30 tablet, 0 Refills, Maintenance, 01/13/22 16:34:00 EDT, Tablet, Partial fill upon patient request if the prescription is for a schedule II opioid drug. Start Date: 01/13/22 Status: Ordered benztropine 0.5 mg oral tablet 0.5 mg, 1, tablet, By Mouth, 2 times a day, # 60 tablet, Refills 0, Tot. Refills 0, Maintenance, 01/27/22 8:24:00 EDT, Route to Pharmacy Electronically, [facility], Partial fill upon patient request if the prescription is for a schedule II o... Start Date: 01/27/22 Stop Date: 02/26/22 Status: Ordered clonazePAM 1 mg oral tablet 1 tablet = 1 mg, By Mouth, 2 times a day, PRN Anxiety, # 60 tablet, 0 Refills, Maintenance, 01/27/22 8:34:00 EDT, Tablet, [facility], Partial fill upon patient request if the prescription is for a schedule II opioid drug., 175, cm, 01/26/22... Start Date: 01/27/22 Stop Date: 02/26/22 Status: Ordered fenofibrate 43 mg oral capsule 1 capsule = 43 mg, By Mouth, Daily, # 30 capsule, 0 Refills, Maintenance, 01/27/22 8:36:00 EDT, Capsule, [facility], Partial fill upon patient request if the prescription is for a schedule II opioid drug., 175, cm, 01/26/22 21:23:00 EDT, Hei... Start Date: 01/27/22 Stop Date: 02/26/22 Status: Ordered hydrOXYzine pamoate 100 mg oral capsule = 100 mg, By Mouth, 2 times a day, PRN Anxiety, 0 Refills, Maintenance, 02/14/22 12:53:00 EDT, Capsule, Partial fill upon patient request if the prescription is for a schedule II opioid drug. Start Date: 02/14/22 Status: Ordered lidocaine 5% topical ointment 1 application, Topically, 3 times a day, # 50 Gm, 0 Refills, Maintenance, 11/19/21 17:24:00 EDT, Ointment, [facility], Partial fill upon patient request if the prescription is for a schedule II opioid drug., 1 application Topically 3 times a... Start Date: 11/19/21 Status: Ordered montelukast 10 mg oral tablet 10 mg, 1, tablet, By Mouth, Daily in PM, # 30 tablet, Refills 0, Maintenance, 01/13/22 16:33:00 EDT, Partial fill upon patient request if the prescription is for a schedule II opioid drug. Start Date: 01/13/22 Status: Ordered nicotine 21 mg/24 hr transdermal film, extended release 1 patch, Topically, Daily, # 30 patch, 0 Refills, Maintenance, 01/27/22 8:38:00 EDT, Patch, [facility], Partial fill upon patient request if the prescription is for a schedule II opioid drug., 1 patch Topically Daily, 175, cm, 01/26/22 21:23... Start Date: 01/27/22 Status: Ordered [id number] oral powder for reconstitution TAKE 1 PACKET BY MOUTH DAILY; MIX IN WATER Start Date: 01/13/22 Status: Ordered prazosin 1 mg oral capsule 1 mg, 1, capsule, By Mouth, Daily at bedtime, # 30 capsule, Refills 0, Tot. Refills 0, Maintenance,01/27/22 8:38:00 EDT, Route to Pharmacy Electronically, [facility], Partial fill upon patient request if the prescription is for a schedule I... Start Date: 01/27/22 Stop Date: 02/26/22 Status: Ordered propranolol 20 mg oral tablet TAKE 1 TABLET BY MOUTH TWICE A DAY Start Date: 01/13/22 Status: Ordered QUEtiapine 50 mg oral tablet 1 tablet = 50 mg, By Mouth, 2 times a day, take 1 tablet (=50mg) along with 100mg tablet for a total of 150mg, up to 2 times a day, as needed for anxiety, # 60 tablet, 0 Refills, Maintenance, 01/27/22 8:30:00 EDT, Tablet, [facility], Partial... Start Date: 01/27/22 Stop Date: 02/26/22 Status: Ordered SEROquel 100 mg oral tablet 100 mg, 1, tablet, By Mouth, 2 times a day, PRN, take 1 tablet (=100mg) along with a 50mg tablet for a total of 150mg, up to 2 times a day, as needed for anxiety, # 60 tablet, Refills 0, Tot. Refills0, Maintenance, Anxiety, 01/27/22 8:28:00 EDT, Rout... Start Date: 01/27/22 Stop Date: 02/26/22 Status: Ordered SEROquel 200 mg oral tablet 400 mg, 2, tablet, By Mouth, Daily at bedtime, Refills 0, Maintenance, 02/14/22 12:54:00 EDT, Partial fill upon patient request if the prescription is for a schedule II opioid drug. Start Date: 02/14/22 Status: Ordered simethicone 80 mg oral tablet, chewable 160 mg, 2, tablet, Chew, 3 times a day, take 2 tablets (160mg), 3 times a day, # 180 tablet, Refills 0, Tot. Refills 0, Maintenance, 01/27/22 8:39:00 EDT, Route to Pharmacy Electronically, [facility], Partial fill upon patient request if the... Start Date: 01/27/22 Stop Date: 02/26/22 Status: Ordered topiramate 50 mg oral tablet TAKE 1 TABLET BY MOUTH EVERY DAY Start Date: 01/13/22 Status: Ordered zolpidem 5 mg oral tablet 1 tablet = 5 mg, By Mouth, Daily at bedtime, # 30 tablet, 0 Refills, Maintenance, 01/27/22 8:39:00 EDT, Tablet, [facility], Partial fill upon patient request if the prescription is for a schedule II opioid drug., 175, cm, 01/26/22 21:23:00 E... Start Date: 01/27/22 Stop Date: 02/26/22 Status: Ordered Problem List Condition Effective Dates Status Health Status Inform ant Asthma(Confirmed) Active HTN (hypertension)(Confirmed) Active Fibrodysplasia ossificans congenita(Confirmed) Active Herniated lumbar interverteb ral disc(Confirmed) Active Severe obesity(Confirmed) Active Diagnosis Diagnosis Type Effective Dates Health Status Cl inical Service Informant Right hip pain Discharge Diagnosis 04/19/22 Low back pain Discharge Diagnosis 04/19/22 Vital Signs Most recent to oldest [Reference Range]: 1 Height 175 cm (04/19/22 9:21 AM) Oxygen Saturation [94-100 %] 100 % (04/19/22 9:21 AM) Pulse Rate [55-90 bpm] 81 bpm (04/19/22 9:21 AM) Blood Pressure [90-138/55-84 mm Hg] 135/ 93mm Hg (04/19/22 9:21 AM) Temperature [96.8-100.4 DegF] 97 DegF (04/19/22 9:21 AM) Mode of Delivery (Oxygen) Room air (04/19/22 9:21 AM) Blood pressure sites Arm, left (04/19/22 9:21 AM) Temperature Route Temporal (04/19/22 9:21 AM) Social History Social History Type Response Smoking Status 10 or more cigarette s (1/2 pack or more)/day in last 30 days; Interested in cessation: No; Patient wants NRT during admission Yes; Other: 1/2 pack daily; entered on: 01/13/22 Sex Care Team Personnel Name: Not on Staff, PCP
--- OUTSIDE RECORDS SUMMARY | 2023-03-30 13:56 | XMS_ITS | Continuity of Care Document ---
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 Role Phone Terrie Kruger NP Primary Care Physician Encounter [facility] Date(s): 01/12/21 - 02/11/21 [facility] [address] [place] [address]- Attending Physician: Kimberly Brunson Admitting Physician: AdmKimberly garcia Referring Physician: AdmtrKimberly Allergies, Adverse Reactions, Alerts Substance Reaction Severity Status codeine Active aspirin Active Haldol Active NSAIDs Active PROzac Active Immunizations Given and Recorded Vaccine Date Status Refusal Reason Influenza Virus Vaccine (oldterm) 06/11/20 Recorde d Medications amLODIPine 10 mg oral tablet 1 tablet = 10 mg, By Mouth, Daily, # 90 tablet, 0 Refills, Maintenance, 11/24/20 8:12:00 EDT, [id number], Partial fill upon patient request if the prescription is for a schedule II opioid drug., 174, cm, 11/24/20 7:51:00 EDT, H... Start Date: 11/24/20 Stop Date: 02/22/21 Status: Ordered Breo Ellipta 200 mcg-25 mcg/inh inhalation powder 1 puffs, Inhalation, Daily, # 3 each, 0 Refills, Maintenance, 11/24/20 8:10:00 EDT, [facility] [id number], Partial fill upon patient request if the prescription is for a schedule II opioid drug., 1 puffs Inhalation Daily,x90 days, 174, cm... Start Date: 11/24/20 Stop Date: 02/22/21 Status: Ordered escitalopram 10 mg oral tablet 1 tablet = 10 mg, By Mouth, Daily, # 90 tablet, 0 Refills, Maintenance, 11/24/20 8:10:00 EDT, [id number], Partial fill upon patient request if the prescription is for a schedule II opioid drug., 174, cm, 11/24/20 7:51:00 EDT, H... Start Date: 11/24/20 Stop Date: 02/22/21 Status: Ordered Home Blood Pressure Monitor See Instructions, # 1 each, Maintenance, BP CUFF take daily, 11/20/20 13:43:00 EDT, Supply Start Date: 11/20/20 Status: Ordered losartan 25 mg oral tablet 1 tablet = 25 mg, By Mouth, Daily, # 90 tablet, 0 Refills, Maintenance, 11/24/20 8:11:00 EDT, [id number], Partial fill upon patient request if the prescription is for a schedule II opioid drug., 174, cm, 11/24/20 7:51:00 EDT, H... Start Date: 11/24/20 Stop Date: 02/22/21 Status: Ordered ProAir HFA 90 mcg/inh inhalation aerosol 2 puffs, Inhalation, Every 6 hours, PRN Wheezing/Shortness of Breath, # 1 each, 0 Refills, Maintenance, 11/24/20 8:13:00 EDT, [facility] [id number], Partial fill upon patient request if the prescription is for a schedule II opioid drug.,... Start Date: 11/24/20 Stop Date: 12/24/20 Status: Ordered Problem List Condition Effective Dates Status Health Status Inform ant Asthma(Confirmed) Active HTN (hypertension)(Confirmed) Active Fibrodysplasia ossificans congenita(Confirmed) Active Herniated lumbar interverteb ral disc(Confirmed) Active Social History Social History Type Response Smoking Status 5-9 cigarettes (betw een 1/4 to 1/2 pack)/day in last 30 days; Other: 1/2 PPD started at 14; entered on: 06/15/20 Sex
--- OUTSIDE RECORDS SUMMARY | 2023-03-30 13:56 | XMS_ITS | Continuity of Care Document ---
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 Name Role Phone Terrie Kruger NP Primary Care Physician [phone] En[place] [facility] [place](s): 02/02/21 - 03/04/21 [facility] [address] [place] [address]- Allergies, Adverse Reactions, Alerts Substance Reaction Severity Status codeine Active aspirin Active Haldol Active NSAIDs Active PROzac Active Immunizations Given and Recorded Vaccine Date Status Refusal Reason SARS-CoV-2 (COVID-19) Ad26 vaccine 1 02/15/21 Give n Influenza Virus Vaccine (oldterm) 06/11/20 Helder hernandez 1Result Comment: [facility] [id number] Medications amLODIPine 10 mg oral tablet 1 tablet = 10 mg, By Mouth, Daily, # 90 tablet, 0 Refills, Maintenance, 11/24/20 8:12:00 EDT, [id number], Partial fill upon patient request if the prescription is for a schedule II opioid drug., 174, cm, 11/24/20 7:51:00 EDT, H... Start Date: 11/24/20 Stop Date: 02/22/21 Status: Ordered Breo Ellipta 200 mcg-25 mcg/inh inhalation powder 1 puffs, Inhalation, Daily, # 3 each, 0 Refills, Maintenance, 11/24/20 8:10:00 EDT, [id number], Partial fill upon patient request if the prescription is for a schedule II opioid drug., 1 puffs Inhalation Daily,x90 days, 174, cm... Start Date: 11/24/20 Stop Date: 02/22/21 Status: Ordered cyclobenzaprine 10 mg oral tablet 10 mg, 1, tablet, By Mouth, 3 times a day, PRN, # 63 tablet, Refills 0, Tot. Refills 0, Maintenance, Spasm, 02/15/21 10:32:00 EDT, Route to Pharmacy Electronically, [id number], Partial fill upon patient request if the prescript... Start Date: 02/15/21 Stop Date: 03/08/21 Status: Ordered escitalopram 10 mg oral tablet 1 tablet = 10 mg, By Mouth, Daily, # 90 tablet, 0 Refills, Maintenance, 11/24/20 8:10:00 EDT, [id number], Partial fill upon patient request if the [...] tablet, 0 Refills, Maintenance, 11/24/20 8:11:00 EDT, [facility]-[id number], Partial fill upon patient request if the prescription is for a schedule II opioid drug., 174, cm, 11/24/20 7:51:00 EDT, H... Start Date: 11/24/20 Stop Date: 02/22/21 Status: Ordered Melatonin 10 mg oral tablet 1 tablet = 10 mg, By Mouth, Daily at bedtime, for 30 days, # 30 tablet, 0 Refills, Acute 03/17/21 10:35:00 EDT, 02/15/21 10:35:00 EDT, [id number], Partial fill upon patient request if the prescription is for a schedule II opioi... Start Date: 02/15/21 Stop Date: 03/17/21 Status: Ordered montelukast 10 mg oral tablet 10 mg, 1, tablet, By Mouth, Daily in PM, # 90 tablet, Refills 0, Tot. Refills 0, Maintenance, 02/15/21 10:38:00 EDT, Route to Pharmacy Electronically, [id number], Partial fillupon patient request if the prescription is for a s... Start Date: 02/15/21 Stop Date: 05/16/21 Status: Ordered ProAir HFA 90 mcg/inh inhalation aerosol 2 puffs, Inhalation, Every 6 hours, PRN Wheezing/Shortness of Breath, # 1 each, 0 Refills, Maintenance, 02/15/21 10:32:00 EDT, [id number], Partial fill upon patient request ifthe prescription is for a schedule II opioid drug.,... Start Date: 02/15/21 Stop Date: 03/17/21 Status: Ordered Spiriva Respimat 1.25 mcg/inh inhalation aerosol 2 puffs, Inhalation, Daily, # 1 each, 0 Refills, Maintenance, 02/15/21 10:37:00 EDT, Aerosol, [facility]ox[facility]-[id number], Partial fill upon patient request if the prescription is for a schedule II opioid drug., 174, cm, 02/15/21 10:00:00 EDT,... Start Date: 02/15/21 Stop Date: 03/17/21 Status: Ordered traZODone 50 mg oral tablet 100 mg, 2, tablet, By Mouth, Daily at bedtime, # 180 tablet, Refills 0, Tot. Refills 0, Maintenance, 02/15/21 10:35:00 EDT, Route to Pharmacy Electronically, [id number], Partial fill upon patient request if the prescription is... Start Date: 02/15/21 Stop Date: 05/16/21 Status: Ordered Problem List Condition Effective Dates Status Health Status Inform ant Asthma(Confirmed) Active HTN (hypertension)(Confirmed) Active Fibrodysplasia ossificans congenita(Confirmed) Active Herniated lumbar interverteb ral disc(Confirmed) Active Social History Social History Type Response Smoking Status 5-9 cigarettes (betw een 1/4 to 1/2 pack)/day in last 30 days; Other: 4 / day now; entered on: 02/15/21 Sex
--- OUTSIDE RECORDS SUMMARY | 2023-03-30 13:56 | XMS_ITS | Continuity of Care Document ---
Author Name Unknown Organization 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 Role Phone Polly Vuong MD, V Primary Care Physician [phone] Encounter [facility] [place] Date(s): 01/20/23 - 01/21/[address] [address]- Encounter Diagnosis Suicidal intent(Final) - 01/20/23 Discharge Disposition: Transfer to [facility] Facility Attending Physician: Omar Blanchard MD Admitting Physician: Omar Blanchard MD Referring Physician: Not on Staff, Referring MD Allergies, Adverse Reactions, Alerts Substance Reaction Severity Status codeine Active aspirin Active Haldol Active PROzac Active TraMADol Hydrochloride Activ e Immunizations Given and Recorded Vaccine Date Status Refusal Reason [id number] bivalent booster vax 06/21/22 Recorded tetanus/diphtheria/pertussis, acel(Tdap) 1 05/14/21 Given SARS-CoV-2 (COVID-19) Ad26 vaccine 2 02/15/21 Give n Influenza Virus Vaccine (oldterm) 06/11/20 Recorde d 1Result Comment: [facility] [id number] 2Result Comment: [facility] [id number] Medications amLODIPine 10 mg oral tablet 10 mg, Tablet, By Mouth, 01/21/23 9:00:00 EDT Start Date: 01/21/23 Stop Date: 01/21/23 Status: Completed duloxetine 30 mg oral enteric coated capsule 1 capsule = 30 mg, By Mouth, 2 times a day, # 60 capsule, 1 Refills, Maintenance, 11/08/22 11:26:00EDT, EC Capsule, [facility], Partial fill upon patient request if the prescription is fora schedule II opioid drug., 175, cm, 10/19/22 9:28:... Start Date: 11/08/22 Status: Ordered losartan 25 mg oral tablet 25 mg, Tablet, By Mouth, 01/21/23 9:00:00 EDT Start Date: 01/21/23 Stop Date: 01/21/23 Status: Completed Tylenol 8 Hour 650 mg oral tablet, extended release 2 tablet = 1,300 mg, By Mouth, Every 8 hours, 0 Refills, Maintenance, 10/19/22 9:40:00 EST, Partialfill upon patient request if the prescription is for a schedule II opioid drug. Start Date: 10/19/22 Status: Ordered Problem List Condition Confirmation Course Effective Dates Status H ealth Status Informant Asthma Confirmed Active HTN (hypertension) Confirmed Active Left knee pain Confirmed Active Fibrodysplasia ossificans congenita Confirmed Active Herniated lumbar intervertebral disc Confirmed Active Severe obesity (BMI 35.0-39.9) with comorbidity Confirmed Active Left shoulder pain Confirmed Active Results Radiology Reports * Exam Date Time Procedure Performing Provider Status 01/20/23 11:09 PM Chest Portable Christie Darling; Lucinda reyes (Verified) Notes: (Chest Portable) Reason For Exam: Shortness of Breath RESULT: Chest Portable Chest Portable performed upright at 10:40 PM Hx of Present Illness: SI attempt; Reason: Shortness of Breath; Clinical Question(s): CHF COMPARISON: Multiple prior chest x-rays, the most recent of which is dated 04/03/2022. FINDINGS: LINES AND TUBES: None. LUNGS AND PLEURA: Clear lungs. Normal pulmonary vascularity. No pleural effusion. No pneumothorax. HEART, MEDIASTINUM AND CASSY: Heart is normal in size. Normal mediastinal and hilar contour. BONES AND SOFT TISSUES: No acute abnormality. Surgical anchor in the left humeral head is compatible with prior rotator cuff repair. IMPRESSION: No acute abnormality. WSN: [id number] Ordering Physician: Tiny Jaime Dictated By: Adelina Echevarria MD Dictated Date/Time: 01/20/23 11:30 p Reviewed By: Adelina Echevarria MD Signed By: Adelina Echevarria MD Signed Date/Time: 01/20/23 11:30 pm Transcribed By: CALEB Transcribed Date/Time: 01/20/23 11:28 pm Vital Signs Most recent to oldest [Reference Range]: 1 2 3 4 Oxygen Saturation [94-100 %] 90 % *L* (01/21/23 4:19 PM) 99 % (01/21/23 7:50 AM) 98 % (01/21/23 3:19 AM) Pulse Rate [55-90 bpm] 90 bpm (01/21/23 4:19 PM) 99 bpm *H* (01/21/23 7:50 AM) 99 bpm *H* (01/21/23 3:19 AM) Blood Pressure [90-138/55-84 mm Hg] 113/62mm Hg (01/21/23 4:19 PM) 114/73mm Hg (01/21/23 8:30 AM) 14/73mm Hg *L* (01/21/23 8:30 AM) 114/73mm Hg (01/21/23 8:30 AM) Respiratory Rate [16-30 br/min] 16 br/min (01/21/23 4:19 PM) 16 br/min (01/21/23 7:50 AM) 14 br/min *L* (01/21/23 3:19 AM) Temperature [96.8-100.4 DegF] 97.9 DegF (01/21/23 4:19 PM) 98.7 DegF (01/20/23 9:47 PM) Mode of Delivery (Oxygen) Room air (01/21/23 4:19 PM) Room air (01/21/23 7:50 AM) Room air (01/21/23 3:19 AM) Blood pressure sites Arm, right (01/21/23 4:19 PM) Arm, left (01/21/23 7:50 AM) Arm, left (01/21/23 3:19 AM) Temperature Route Oral (01/21/23 4:19 PM) Oral (01/20/23 9:47 PM) Social History Social History Type Response Smoking Status 10 or more cigarette s (1/2 pack or more)/day in last 30 days; Interested in cessation: No; Patient wants NRT during admission Yes; Other: 1/2 pack daily; entered on: 01/13/22 Sex Portable XR Chest Views * BHSPowerscribe , CIS S: TRANSCRIBE Swathi ÁLVAREZ, Adelina Holder: VERIFY Event Display: Result: Authored Date: Chest Portable performed upright at 10:40 PM Hx of Present Illness: SI attempt; Reason: Shortness of Breath; Clinical Question(s): CHF COMPARISON: Multiple prior chest x-rays, the most recent of which is dated 04/03/2022. FINDINGS: LINES AND TUBES: None. LUNGS AND PLEURA: Clear lungs. Normal pulmonary vascularity. No pleural effusion. No pneumothorax. HEART, MEDIASTINUM AND CASSY: Heart is normal in size. Normal mediastinal and hilar contour. BONES AND SOFT TISSUES: No acute abnormality. Surgical anchor in the left humeral head is compatible with prior rotator cuff repair. IMPRESSION: No acute abnormality. WSN: [id number] Ordering Physician: Tiny Jaime Dictated By: Adelina Echevarria MD Dictated Date/Time: 01/20/23 11:30 p Reviewed By: Adelina Echevarria MD Signed By: Adelina Echevarria MD Signed Date/Time: 01/20/23 11:30 pm Transcribed By: CALEB Transcribed Date/Time: 01/20/23 11:28 pm Patient Care team information Care Team Personnel Name: Mahendra Maria Position: [facility] RN Supv Member Role: Primary Care Nurse Name: Jeni Solorio RN Position: [facility] RN Member Role: Primary Care Nurse Name: Rebekah Delatorre RN Position: [facility] RN Member Role: Primary Care Nurse Name: Polly Vuong MD, V Position: [facility] Physician - Primary Care Member Role: PCP Address: Address: [address] [place] [address] Name: Sandi Hightower RN Position: [facility] RN Member Role: Primary Care Nurse Name: Angelita Almeida RN Position: [facility] RN Member Role: Primary Care Nurse [facility] Attending Position: [facility] ED Attendings Patient Name: Lanie Frey RN Position: [facility] ED RN W/OE and Tasks Member Role: Patient Care Provider Name: Omar Blanchard MD Position: [facility] ED Medicine MD Member Role: Admitting Physician Address: Address: [address] [place] [address] [place], [place] [address] Name: Jose Umanzor Position: [facility] ED TA [facility] Member Role: Value Stream Leader Care Team Related Persons Name: MARTIN DEWEYMIHIR Address: [place] [address] Name: SHANNON CARLIN
--- OUTSIDE RECORDS SUMMARY | 2023-03-30 13:56 | XMS_ITS | Continuity of Care Document ---
Author Name Unknown Organization [facility] ter Address [address] [place] [address]- Care Team Providers Care Funeral Greeter Name Role Phone Not on Staff, PCP Primary Care Physician Unavail able Encounter [facility] Date(s): 11/19/21 - 11/19/[address] [address]- Encounter Diagnosis Tendinopathy of rotator cuff(Final) - 11/19/21 Discharge Disposition: A-D/C Home Attending Physician: Gian Rashid MD Admitting Physician: Gian Rashid MD Referring Physician: Not on Staff, Referring MD Allergies, Adverse Reactions, Alerts Substance Reaction Severity Status codeine Active aspirin Active NSAIDs Active TraMADol Hydrochloride Activ e Haldol Active PROzac Active Immunizations Given and Recorded Vaccine Date Status Refusal Reason tetanus/diphtheria/pertussis, acel(Tdap) 1 05/14/21 Given SARS-CoV-2 (COVID-19) Ad26 vaccine 2 02/15/21 Give n Influenza Virus Vaccine (oldterm) 06/11/20 Recorde d 1Result Comment: [facility] [id number] 2Result Comment: [facility] [id number] Medications cyclobenzaprine 5 mg oral tablet 1 tablet = 5 mg, By Mouth, 3 times a day, for 5 days, # 15 tablet, 0 Refills, Acute 11/24/21 17:20:00 EDT, 11/19/21 17:20:00 EDT, Tablet, [facility], Partial fill upon patient request if the prescription is for a schedule II opioid drug., 17... Start Date: 11/19/21 Stop Date: 11/24/21 Status: Ordered lidocaine 5% topical ointment 1 application, Topically, 3 times a day, # 50 Gm, 0 Refills, Maintenance, 11/19/21 17:24:00 EDT, Ointment, [facility], Partial fill upon patient request if the prescription is for a schedule II opioid drug., 1 application Topically 3 times a... Start Date: 11/19/21 Status: Ordered oxyCODONE 5 mg oral tablet 5 mg, 1, tablet, By Mouth, Every 6 hours, PRN, for 5 days, Partial fill available at patients request, # 18 tablet, Refills 0, Tot. Refills 0, Acute 11/24/21 17:19:00 EDT, for pain, 11/19/21 17:19:00EDT, Route to Pharmacy Electronically, [facility]... Start Date: 11/19/21 Stop Date: 11/24/21 Status: Ordered Percocet-5 Tablet 1 tablet, Tablet, By Mouth, Once, STAT, 11/19/21 17:19:00 EDT, Stop date 11/19/21 17:19:00 EDT Start Date: 11/19/21 Stop Date: 11/19/21 Status: Completed Problem List Condition Effective Dates Status Health Status Inform ant Asthma(Confirmed) Active HTN (hypertension)(Confirmed) Active Obese class II(Confirmed) Active Fibrodysplasia ossificans congenita(Confirmed) Active Herniated lumbar interverteb ral disc(Confirmed) Active Results Radiology Reports * Exam Date Time Procedure Performing Provider Status 11/19/21 3:46 PM Shoulder Min 2 Views Left Desrosier, E franklin; Auth (Verified) Notes: (Shoulder Min 2 Views Left) Reason For Exam: Pain RESULT: Shoulder Min 2 Views Left Shoulder Min 2 Views Left, views Hx of Present Illness: Patient reports left shoulder pain x 3 days. No known traumatic injury.; Reason: Pain; Clinical Question(s): Fracture COMPARISON: October 15, 2021 FINDINGS: No fracture or dislocation. Jameson is seen overlying the left humeral head related to tendon repair. No arthritic change of the glenohumeral joint. Normal AC joint and portions of the clavicle included on the exam. No calcification of the rotator cuff. IMPRESSION: No acute fracture or dislocation. WSN: [id number] Ordering Physician: Sara Bedoya Dictated By: Omra Yousif MD Dictated Date/Time: 11/19/21 3:59 pm Reviewed By: Omar Yousif MD Signed By: Omar Yousif MD Signed Date/Time: 11/19/21 3:59 pm Transcribed By: CALEB Transcribed Date/Time: 11/19/21 3:58 pm Vital Signs Most recent to oldest [Reference Range]: 1 2 3 Height 175 cm (11/19/21 3:10 PM) Weight 118.8 kg (11/19/21 3:10 PM) Oxygen Saturation [94-100 %] 97 % (11/19/21 4:57 PM) 99 % (11/19/21 3:10 PM) 100 % (11/19/21 3:03 PM) Pulse Rate [55-90 bpm] 83 bpm (11/19/21 4:57 PM) 95 bpm *H* (11/19/21 3:10 PM) 105 bpm *H* (11/19/21 3:03 PM) Body Mass Index [18.5-24.99] 38.79 *>HHI* (11/19/21 3:10 PM) Blood Pressure [90-138/55-84 mm Hg] 173/94mm Hg *H* (11/19/21 4:57 PM) 178/96mm Hg *H* (11/19/21 3:10 PM) Respiratory Rate [16-30 br/min] 17 br/min (11/19/21 5:29 PM) 16 br/min (11/19/21 3:10 PM) Temperature [96.8-100.4 DegF] 98.1 DegF (11/19/21 4:57 PM) 98.1 DegF (11/19/21 3:10 PM) Mode of Delivery (Oxygen) Room air (11/19/21 4:57 PM) Room air (11/19/21 3:10 PM) Room air (11/19/21 3:03 PM) Blood pressure sites Arm, right (11/19/21 4:57 PM) Temperature Route Oral (11/19/21 4:57 PM) Oral (11/19/21 3:10 PM) Social History Social History Type Response Smoking Status 5-9 cigarettes (betw een 1/4 to 1/2 pack)/day in last 30 days; Other: 4 / day now; entered on: 02/15/21 Sex
--- OUTSIDE RECORDS SUMMARY | 2023-03-30 13:56 | XMS_ITS | Continuity of Care Document ---
Author Name Unknown Organization [facility] Address [address] [place] [address]- Care Team Providers Care Film Coater Name Role Phone Terrie Kruger NP Primary Care Physician [phone] Encounter [facility] [place] [place] Date(s): 05/21/20 - 06/20/20 [facility] [address] [place] [address]- [facility] Allergies, Adverse Reactions, Alerts Substance Reaction Severity Status codeine Active aspirin Active Haldol Active NSAIDs Active PROzac Active Medications amLODIPine 10 mg oral tablet 0 Refills, Maintenance, 06/15/20 8:34:00 EDT Start Date: 06/15/20 Status: Ordered losartan 25 mg oral tablet 0 Refills, Maintenance, 06/15/20 8:34:00 EDT Start Date: 06/15/20 Status: Ordered ProAir HFA 90 mcg/inh inhalation aerosol 0 Refills, Maintenance, 06/15/20 8:34:00 EDT Start Date: 06/15/20 Status: Ordered Problem List Condition Effective Dates [...]
--- OUTSIDE RECORDS SUMMARY | 2023-03-30 13:56 | XMS_ITS | Continuity of Care Document ---
Author Name Unknown Organization [facility] Address [address] [place] [address]- Care Team Providers Care Ip Technology Transactions Attorney Name Role Phone Terrie Kruger NP Primary Care Physician [phone] [place] [facility] [id number] Date(s): 11/24/20 - 12/01/20 [facility] [address] [place] [address]- Encounter Diagnosis Asthma(Discharge Diagnosis) - 11/24/20 HTN (hypertension)(Discharge Diagnosis) - 11/24/20 Depression(Discharge Diagnosis) - 11/24/20 Low back pain(Discharge Diagnosis) - 11/24/20 Attending Physician: Terrie Kruger NP Allergies, Adverse Reactions, Alerts Substance Reaction Severity Status codeine Active aspirin Active Haldol Active NSAIDs Active PROzac Active Immunizations Given and Recorded Vaccine Date Status Refusal Reason Influenza Virus Vaccine (oldterm) 06/11/20 Recorde d Medications amLODIPine 10 mg oral tablet 1 tablet = 10 mg, By Mouth, Daily, # 90 tablet, 0 Refills, Maintenance, 11/24/20 8:12:00 EDT, [id number], Partial fill upon patient request if the prescription is for a schedule II opioid drug., 174, cm, 11/24/20 7:51:00 EDT, H... Start Date: 11/24/20 Stop Date: 02/22/21 Status: Ordered Breo Ellipta 200 mcg-25 mcg/inh inhalation powder 1 puffs, Inhalation, Daily, # 3 each, 0 Refills, Maintenance, 11/24/20 8:10:00 EDT, [id number], Partial fill upon patient request if the prescription is for a schedule II opioid drug., 1 puffs Inhalation Daily,x90 days, 174, cm... Start Date: 11/24/20 Stop Date: 02/22/21 Status: Ordered cyclobenzaprine 10 mg oral tablet 10 mg, 1, tablet, By Mouth, 3 times a day, PRN, for 14 days, # 42 tablet, Refills 0, Tot. Refills 0, Acute 12/08/20 8:16:00 EDT, Spasm for spasm, 11/24/20 8:16:00 EDT, Route to Pharmacy Electronically, [id number], Partial rosa maria... Start Date: 11/24/20 Stop Date: 12/08/20 Status: Ordered escitalopram 10 mg oral tablet 1 tablet = 10 mg, By Mouth, Daily, # 90 tablet, 0 Refills, Maintenance, 11/24/20 8:10:00 EDT, [id number], Partial fill upon patient request if the [...] tablet, 0 Refills, Maintenance, 11/24/20 8:11:00 EDT, [id number], Partial fill upon patient request if the prescription is for a schedule II opioid drug., 174, cm, 11/24/20 7:51:00 EDT, H... Start Date: 11/24/20 Stop Date: 02/22/21 Status: Ordered ProAir HFA 90 mcg/inh inhalation aerosol 2 puffs, Inhalation, Every 6 hours, PRN Wheezing/Shortness of Breath, # 1 each, 0 Refills, Maintenance, 11/24/20 8:13:00 EDT, [id number], Partial fill upon patient request if the prescription is for a schedule II opioid drug.,... Start Date: 11/24/20 Stop Date: 12/24/20 Status: Ordered Tylenol 8 HR Arthritis Pain 650 mg oral tablet, extended release 2 tablet = 1,300 mg, By Mouth, Every 8 hours, PRN Pain , Mild, for 14 days, # 100 tablet, 0 Refills, Acute 12/08/20 8:15:00 EDT, 11/24/20 8:15:00 EDT, ER Tablet, [id number], Partial fill upon patient request if the prescription... Start Date: 11/24/20 Stop Date: 12/08/20 Status: Ordered Problem List Condition Effective Dates Status Health Status Inform ant Asthma(Confirmed) Active HTN (hypertension)(Confirmed) Active Fibrodysplasia ossificans congenita(Confirmed) Active Herniated lumbar interverteb ral disc(Confirmed) Active Diagnosis Diagnosis Type Effective Dates Health Status Clinical Service Informant Asthma Discharge Diagnosis 11/24/20 HTN (hypertension) Discharge Diagnosis 11/24/20 Depression Discharge Diagnosis 11/24/20 Low back pain Discharge Diagnosis 11/24/20 Vital Signs Most recent to oldest [Reference Range]: 1 Height 174 cm (11/24/20 7:51 AM) Weight 125.2 kg (11/24/20 7:51 AM) Oxygen Saturation [94-100 %] 98 % (11/24/20 7:51 AM) Pulse Rate [55-90 bpm] 91 bpm *H* (11/24/20 7:51 AM) Body Mass Index [18.5-24.99] 41.35 *>HHI* (11/24/20 7:51 AM) Blood Pressure [90-138/55-84 mm Hg] 126/ 62mm Hg (11/24/20 7:51 AM) Temperature [96.8-100.4 DegF] 98 DegF (11/24/20 7:51 AM) Mode of Delivery (Oxygen) Room air (11/24/20 7:51 AM) Blood pressure sites Arm, left (11/24/20 7:51 AM) Temperature Route Oral (11/24/20 7:51 AM) Weight Obtained Via Standing scale (11/24/20 7:51 AM) Social History Social History Type Response Smoking Status 5-9 cigarettes (betw een 1/4 to 1/2 pack)/day in last 30 days; Other: 1/2 PPD started at 14; entered on: 06/15/20 Sex
--- OUTSIDE RECORDS SUMMARY | 2023-03-30 13:56 | XMS_ITS | Continuity of Care Document ---
Author Name Unknown Organization [facility] Address [address] [address]- Care Team Providers Care Tarring Machine Operator Name Role Phone Saskia ANTHONY, Terrie Primary Care Physician Encounter [facility] [place] Date(s): 06/22/20 - 08/19/20 [facility] [address] [place] [id number] Attending Physician: Horacio Jiménez MD Admitting Physician: Horacio Jiménez MD Referring Physician: Terrie Kruger NP Allergies, Adverse Reactions, Alerts Substance Reaction Severity Status codeine Active aspirin Active Haldol Active NSAIDs Active PROzac Active Medications amLODIPine 10 mg oral tablet 0 Refills, Maintenance, 06/15/20 8:34:00 EDT Start Date: 06/15/20 Status: Ordered amLODIPine 10 mg oral tablet 10 mg, 1, tablet, By Mouth, Daily, # 5 tablet, Refills 0, Tot. Refills 0, Maintenance, 06/24/20 14:30:00 EDT, Print Requisition Start Date: 06/24/20 Stop Date: 06/29/20 Status: Ordered KlonoPIN 0.5 mg oral tablet 1 tablet = 0.5 mg, By Mouth, 2 times a day, # 28 tablet, 0 Refills, Maintenance, 06/24/20 16:06:00 EDT, Tablet, [employer] [facility]-, 131.2, kg, 05/31/20 10:53:00 EDT, Dry Weight Start Date: 06/24/20 Stop Date: 07/08/20 Status: Ordered Lexapro 10 mg oral tablet 0.5 tablet = 5 mg, By Mouth, Daily, # 7 tablet, 0 Refills, Maintenance, 06/24/20 16:05:00 EDT, Tablet, [facility] 131.2, kg, 05/31/20 10:53:00 EDT, Dry Weight Start Date: 06/24/20 Stop Date: 07/08/20 Status: Ordered losartan 25 mg oral tablet 0 Refills, Maintenance, 06/15/20 8:34:00 EDT Start Date: 06/15/20 Status: Ordered losartan 25 mg oral tablet 25 mg, 1, tablet, By Mouth, Daily, # 5 tablet, Refills 0, Tot. Refills 0, Maintenance, 06/24/20 14:30:00 EDT, Print Requisition Start Date: 06/24/20 Stop Date: 06/29/20 Status: Ordered pantoprazole 40 mg oral delayed release tablet = 40 mg, By Mouth, Daily, # 5 capsule, 0 Refills, Maintenance, 06/24/20 14:30:00 EDT, EC Tablet Start Date: 06/24/20 Stop Date: 06/29/20 Status: Ordered ProAir HFA 90 mcg/inh inhalation aerosol 2 puffs, Inhalation, Every 4 hours, PRN Wheezing/Shortness of Breath, # 1 each, 11 Refills, Maintenance, 07/20/20 8:44:00 EST, Inhaler, [facility]-, 2 puffs Inhalation Every 4hours,PRN:Wheezing/Shortness of Breath, 131.2, kg,... Start Date: 07/20/20 Status: Ordered Problem List Condition Effective Dates [...]
--- OUTSIDE RECORDS SUMMARY | 2023-03-30 13:56 | XMS_ITS | Continuity of Care Document ---
Author Name Unknown Organization [facility] Address [address] [place] [address]- Care Team Providers Care Soc Analyst Name Role Phone Not on Staff, PCP Primary Care Physician Unavail able Encounter [facility] Date(s): 10/19/22 - 10/26/22 [facility] [address] [place] [address]- Encounter Diagnosis Left shoulder pain(Discharge Diagnosis) - 10/19/22 Left knee pain(Discharge Diagnosis) - 10/19/22 Attending Physician: Yevgeniy ÁLVAREZ, Polly Kapoor Allergies, Adverse Reactions, Alerts Substance Reaction Severity Status codeine Active aspirin Active Haldol Active PROzac Active TraMADol Hydrochloride Activ e Immunizations Given and Recorded Vaccine Date Status Refusal Reason [id number] bivalent booster vax 06/21/22 Recorded tetanus/diphtheria/pertussis, acel(Tdap) 1 05/14/21 Given SARS-CoV-2 (COVID-19) Ad26 vaccine 2 02/15/21 Give n Influenza Virus Vaccine (oldterm) 06/11/20 Recorde d 1Result Comment: [facility] [id number] 2Result Comment: [facility] 77243-630-12 Medications Tylenol 8 Hour 650 mg oral tablet, [...] Confirmed Active Left shoulder pain Confirmed Active Diagnosis Diagnosis Type Effective Dates Health Status Cl inical Service Informant Left shoulder pain Discharge Diagnosis 10/19/22 Left knee pain Discharge Diagnosis 10/19/22 Vital Signs Most recent to oldest [Reference Range]: 1 Height 175 cm (10/19/22 9:28 AM) Weight 120.5 kg (10/19/22 9:28 AM) Pulse Rate [55-90 bpm] 72 bpm (10/19/22 9:28 AM) Body Mass Index [18.5-24.99 kg/m2] 39.35 kg/m2 *>HHI* (10/19/22 9:28 AM) Blood Pressure [90-138/55-84 mm Hg] 139/ 83mm Hg *H* (10/19/22 9:28 AM) Mode of Delivery (Oxygen) Room air (10/19/22 9:28 AM) Blood pressure sites Arm, left (10/19/22 9:28 AM) Weight Obtained Via Patient/family state d (10/19/22 9:28 AM) Social History Social History Type Response Smoking Status 10 or more cigarette s (1/2 pack or more)/day in last 30 days; Interested in cessation: No; Patient wants NRT during admission Yes; Other: 1/2 pack daily; entered on: 01/13/22 Sex Patient Care team information Care Team Personnel Name: Mahendra Maria Position: [facility] RN Supv Member Role: Primary Care Nurse Name: Jeni Solorio RN Position: S RN Member Role: Primary Care Nurse Name: Rebekah Delatorre RN Position: S RN Member Role: Primary Care Nurse Name: Sandi Hightower RN Position: S RN Member Role: Primary Care Nurse Name: Angelita Almeida RN Position: [facility] RN Member Role: Primary Care Nurse Name: Not on Staff, PCP Position: [facility] Physician (General Medicine) Member Role: PCP Care Team Related Persons Name: MARTIN DEWEYMIHIR Address: home [address] [place] [address] Name: SHANNON CARLIN
--- OUTSIDE RECORDS SUMMARY | 2023-03-30 13:56 | XMS_ITS | Continuity of Care Document ---
Author Name Unknown Organization [facility] ter Address [address] [place] [address]- Care Team Providers Care Data Modeling Specialist Name Role Phone Saskia ANTHONY, Terrie Primary Care Physician [phone] [place] [facility] [place] - 08/31/[address] [address] Attending Physician: Terrie Kruger NP Admitting Physician: Saskia ANTHONY, Terrie Referring Physician: Terrie Kruger NP Allergies, Adverse Reactions, Alerts Substance Reaction Severity Status codeine Active aspirin Active Haldol Active PROzac Active NSAIDs Active Medications amLODIPine 10 mg oral tablet [...] 0 Refills, Maintenance, 06/24/20 16:06:00 EDT, [facility], [facility] 131.2, kg, 05/31/20 10:53:00 EDT, Dry Weight Start Date: 06/24/20 Stop Date: 07/08/20 Status: Ordered Lexapro 10 mg oral tablet 0.5 tablet = 5 mg, By Mouth, Daily, # 7 tablet, 0 Refills, Maintenance, 06/24/20 16:05:00 EDT, Tablet, [employer] [facility]-, 131.2, kg, 05/31/20 10:53:00 EDT, Dry Weight [...] 11 Refills, Maintenance, 07/20/20 8:44:00 EST, Inhaler, [facility]-, 2 puffs Inhalation Every 4hours,PRN:Wheezing/Shortness of Breath, [...]
--- OUTSIDE RECORDS SUMMARY | 2023-03-30 13:56 | XMS_ITS | Continuity of Care Document ---
Author Name Unknown Organization [facility] Address [address] [place] [address]- Care Team Providers Care Asbestos Coverer Name Role Phone Not on Staff, PCP Primary Care Physician Unavail able [place] [facility] [facility] [place]19[place] - 05/19/22 [facility] [address] [place] [address]- Attending Physician: Kimberly Brunson Admitting Physician: AdmKimberly garcia Referring Physician: Admtr ArBeto Allergies, Adverse Reactions, Alerts Substance Reaction Severity Status codeine Active aspirin Active NSAIDs Active TraMADol Hydrochloride Activ e Haldol Active PROzac Active Immunizations Given and Recorded Vaccine Date Status Refusal Reason tetanus/diphtheria/pertussis, acel(Tdap) 1 05/14/21 Given SARS-CoV-2 (COVID-19) Ad26 vaccine 2 02/15/21 Give n Influenza Virus Vaccine (oldterm) 06/11/20 Recorde d 1Result Comment: [facility] [id number] 2Result Comment: [facility] [id number] Medications amLODIPine 10 mg oral tablet 1 [...] 01/27/22 8:24:00 EDT, Route to Pharmacy Electronically, [facility], Partial fill upon patient request if the prescription is for a schedule II o... Start Date: 01/27/22 Stop Date: 02/26/22 Status: Ordered clonazePAM 1 mg oral tablet 1 tablet = 1 mg, By Mouth, 2 times a day, PRN Anxiety, # 60 tablet, 0 Refills, Maintenance, 01/27/22 8:34:00 EDT, Tablet, [facility], Partial fill upon patient request if the prescription is for a schedule II opioid drug., 175, cm, 01/26/22... Start Date: 01/27/22 Stop Date: 02/26/22 Status: Ordered fenofibrate 43 mg oral capsule 1 capsule = 43 mg, By Mouth, Daily, # 30 capsule, 0 Refills, Maintenance, 01/27/22 8:36:00 EDT, Capsule, [facility], Partial fill upon patient request if [...] 0 Refills, Maintenance, 11/19/21 17:24:00 EDT, Ointment, [facility], Partial fill upon patient request if [...] 0 Refills, Maintenance, 01/27/22 8:38:00 EDT, Patch, [facility], Partial fill upon patient request if the prescription is for a schedule II opioid drug., 1 patch Topically Daily, 175, cm, 01/26/22 21:23... Start Date: 01/27/22 Status: Ordered [id number] oral powder for reconstitution TAKE 1 PACKET BY MOUTH DAILY; MIX IN WATER Start Date: 01/13/22 Status: Ordered prazosin 1 mg oral capsule 1 mg, 1, capsule, By Mouth, Daily at bedtime, # 30 capsule, Refills 0, Tot. Refills 0, Maintenance,01/27/22 8:38:00 EDT, Route to Pharmacy Electronically, [facility], Partial fill upon patient request if [...] 0 Refills, Maintenance, 01/27/22 8:30:00 EDT, Tablet, [facility], Partial... Start Date: 01/27/22 Stop Date: [...] 01/27/22 8:39:00 EDT, Route to Pharmacy Electronically, [facility], Partial fill upon patient request if the... Start Date: 01/27/22 Stop Date: 02/26/22 Status: Ordered topiramate 50 mg oral tablet TAKE 1 TABLET BY MOUTH EVERY DAY Start Date: 01/13/22 Status: Ordered zolpidem 5 mg oral tablet 1 tablet = 5 mg, By Mouth, Daily at bedtime, # 30 tablet, 0 Refills, Maintenance, 01/27/22 8:39:00 EDT, Tablet, [facility], Partial fill upon patient request if the prescription is for a schedule II opioid drug., 175, cm, 01/26/22 21:23:00 E... Start Date: 01/27/22 Stop Date: 02/26/22 Status: Ordered Problem List Condition Effective Dates Status Health Status Inform ant Asthma(Confirmed) Active HTN (hypertension)(Confirmed) Active Fibrodysplasia ossificans congenita(Confirmed) Active Herniated lumbar interverteb ral disc(Confirmed) Active Severe obesity(Confirmed) Active Social History Social History Type Response Smoking Status 10 or more cigarette s (1/2 pack or more)/day in last 30 days; Interested in cessation: No; Patient wants NRT during admission Yes; Other: 1/2 pack daily; entered on: 01/13/22 Sex Care Team Personnel Name: Not on Staff, PCP
--- OUTSIDE RECORDS SUMMARY | 2023-03-30 13:56 | XMS_ITS | Continuity of Care Document ---
Author Name Unknown Organization [facility] Address [address] [place] [address]- Care Team Providers Care News Intern Name Role Phone Yevgeniy ÁLVAREZ, Polly Kapoor Primary Care Physician [place] [facility] [place] Date(s): 01/30/23 - 03/01/23 [facility] [address] [place], [place] [address] Allergies, Adverse Reactions, Alerts Substance Reaction Severity Status codeine Active aspirin Active Haldol Active PROzac Active TraMADol Hydrochloride Activ e Immunizations Given and Recorded Vaccine Date Status Refusal Reason [id number] bivalent booster vax 06/21/22 Recorded tetanus/diphtheria/pertussis, acel(Tdap) 1 05/14/21 Given SARS-CoV-2 (COVID-19) Ad26 vaccine 2 02/15/21 Give n Influenza Virus Vaccine (oldterm) 06/11/20 Recorde d 1Result Comment: [facility] [id number] 2Result Comment: [facility] [id number] Medications amLODIPine 5 mg oral tablet 0 Refills, Maintenance, 02/27/23 15:02:00 EDT, Partial fill upon patient request if the prescription is for a schedule II opioid drug. Start Date: 02/27/23 Status: Ordered benztropine 0.5 mg oral tablet Refills 0, Maintenance, 02/27/23 15:02:00 EDT, Partial fill upon patient request if the prescription is for a schedule II opioid drug. Start Date: 02/27/23 Status: Ordered Breo Ellipta 100 mcg-25 mcg/inh inhalation powder 0 Refills, Maintenance, 02/27/23 15:02:00 EDT, Partial fill upon patient request if the prescription is for a schedule II opioid drug. Start Date: 02/27/23 Status: Ordered clonazePAM 1 mg oral tablet 0 Refills, Maintenance, 02/27/23 15:01:00 EDT, Partial fill upon patient request if the prescription is for a schedule II opioid drug. Start Date: 02/27/23 Status: Ordered divalproex sodium 500 mg oral tablet, extended release 0 Refills, Maintenance, 02/27/23 15:02:00 EDT, Partial fill upon patient request if the prescription is for a schedule II opioid drug. Start Date: 02/27/23 Status: Ordered docusate sodium 100 mg oral capsule 0 Refills, Maintenance, 02/27/23 15:02:00 EDT, Partial fill upon patient request if the prescription is for a schedule II opioid drug. Start Date: 02/27/23 Status: Ordered duloxetine 30 mg oral enteric coated capsule 1 capsule = 30 mg, By Mouth, 2 times a day, # 60 capsule, 1 Refills, Maintenance, 11/08/22 11:26:00EDT, EC Capsule, [facility], Partial fill upon patient request if the prescription is fora schedule II opioid drug., 175, cm, 10/19/22 9:28:... Start Date: 11/08/22 Status: Ordered duloxetine 60 mg oral enteric coated capsule 0 Refills, Maintenance, 02/27/23 15:02:00 EDT, Partial fill upon patient request if the prescription is for a schedule II opioid drug. Start Date: 02/27/23 Status: Ordered hydrOXYzine pamoate 50 mg oral capsule 0 Refills, Maintenance, 02/27/23 15:02:00 EDT, Partial fill upon patient request if the prescription is for a schedule II opioid drug. Start Date: 02/27/23 Status: Ordered mirtazapine 30 mg oral tablet 0 Refills, Maintenance, 02/27/23 15:02:00 EDT, Partial fill upon patient request if the prescription is for a schedule II opioid drug. Start Date: 02/27/23 Status: Ordered montelukast 10 mg oral tablet Refills 0, Maintenance, 02/27/23 15:02:00 EDT, Partial fill upon patient request if the prescription is for a schedule II opioid drug. Start Date: 02/27/23 Status: Ordered naltrexone 50 mg oral tablet 0 Refills, Maintenance, 02/27/23 15:02:00 EDT, Partial fill upon patient request if the prescription is for a schedule II opioid drug. Start Date: 02/27/23 Status: Ordered olanzapine 5 mg oral tablet Refills 0, Maintenance, 02/27/23 15:02:00 EDT, Partial fill upon patient request if the prescription is for a schedule II opioid drug. Start Date: 02/27/23 Status: Ordered omeprazole 40 mg oral enteric coated capsule 1 capsule = 40 mg, By Mouth, Daily, # 30 capsule, 1 Refills, Maintenance, 02/27/23 15:17:00 EDT, ECCcristhian, [facility], Partial fill upon patient request if the prescription is for a schedule II opioid drug., 175, cm, 02/27/23 14:56:00 EDT,... Start Date: 02/27/23 Status: Ordered prazosin 2 mg oral capsule 0 Refills, Maintenance, 02/27/23 15:02:00 EDT, Partial fill upon patient request if the prescription is for a schedule II opioid drug. Start Date: 02/27/23 Status: Ordered propranolol 10 mg oral tablet Refills 0, Maintenance, 02/27/23 15:02:00 EDT, Partial fill upon patient request if the prescription is for a schedule II opioid drug. Start Date: 02/27/23 Status: Ordered QUEtiapine 50 mg oral tablet 0 Refills, Maintenance, 02/27/23 15:01:00 EDT, Partial fill upon patient request if the prescription is for a schedule II opioid drug. Start Date: 02/27/23 Status: Ordered Tylenol 8 Hour 650 mg oral tablet, extended release 2 tablet = 1,300 mg, By Mouth, Every 8 hours, 0 Refills, Maintenance, 10/19/22 9:40:00 EST, Partialfill upon patient request if the prescription is for a schedule II opioid drug. Start Date: 10/19/22 Status: Ordered VITAMIN D3 CAP 1000UNIT VITAMIN D3 CAP 1000UNIT, 0 Refills, Maintenance, 02/27/23 15:02:00 EDT Start Date: 02/27/23 Status: Ordered VITAMIN D3 1000UNIT Capsules VITAMIN D3 1000UNIT Capsules, 0 Refills, Maintenance, 02/27/23 15:01:00 EDT Start Date: 02/27/23 Status: Ordered zolpidem 5 mg oral tablet 1 tablet = 5 mg, By Mouth, Daily at bedtime, PRN as needed for insomnia, 0 Refills, Maintenance, 02/27/23 15:00:00 EDT, Tablet, Partial fill upon patient request if the prescription is for a scheduleII opioid drug. Start Date: 02/27/23 Status: Ordered Problem List Condition Confirmation Course Effective Dates Status H ealth Status Informant Asthma Confirmed Active HTN (hypertension) Confirmed Active Left knee pain Confirmed Active Fibrodysplasia ossificans congenita Confirmed Active Herniated lumbar intervertebral disc Confirmed Active Severe obesity Confirmed Active Left shoulder pain Confirmed Active Social History Social History Type Response Smoking Status 10 or more cigarette s (1/2 pack or more)/day in last 30 days; Interested in cessation: No; Patient wants NRT during admission Yes; Other: 1/2 pack daily; entered on: 01/13/22 Sex Patient Care team information Care Team Personnel Name: Mahendra Maria Position: [facility] RN Supv Member Role: Primary Care Nurse Name: Jeni Solorio RN Position: S RN Member Role: Primary Care Nurse Name: Rebekah Delatorre RN Position: S RN Member Role: Primary Care Nurse Name: Polly Vuong MD, V Position: [facility] Physician - Primary Care Member Role: PCP Address: Address: [address] [place] [address] Name: Sandi Hightower RN Position: S RN Member Role: Primary Care Nurse Name: Angelita Almeida RN Position: S RN Member Role: Primary Care Nurse Care Team Related Persons Name: KEY DEWEY Name: AIDA DEWEY Address: [place] [address] Name: CARLIN ORTEGA
--- OUTSIDE RECORDS SUMMARY | 2023-03-30 13:56 | XMS_ITS | Continuity of Care Document ---
Author Name Unknown Organization [facility] ter Address [address] [place] [address]- Care Team Providers Care Sheet Rock Installer Name Role Phone Not on Staff, PCP Primary Care Physician Unavail able [place] [facility] [place] - 04/28/[address] [address]- [facility] Encounter Diagnosis Ruptured ovarian cyst(Final) - 04/28/20 Discharge Disposition: A-D/C Home Attending Physician: Sarah Gary DO Admitting Physician: Sarah Gary DO Referring Physician: Not on Staff, Referring MD Allergies, Adverse Reactions, Alerts Substance Reaction Severity Status codeine Active aspirin Active Haldol Active NSAIDs Active PROzac Active Vital Signs Most recent to oldest [Reference Range]: 1 2 3 Oxygen Saturation [94-100 %] 99 % (04/28/20 2:25 PM) 100 % (04/28/20 9:41 AM) 100 % (04/28/20 9:32 AM) Pulse Rate [55-90 bpm] 70 bpm (04/28/20 2:25 PM) 84 bpm (04/28/20 9:41 AM) 83 bpm (04/28/20 9:32 AM) Blood Pressure [90-138/55-84 mm Hg] 148/78mm Hg *H* (04/28/20 2:25 PM) 151/87mm Hg *H* (04/28/20 9:41 AM) Respiratory Rate [16-30 br/min] 18 br/min (04/28/20 2:25 PM) 18 br/min (04/28/20 11:57 AM) 20 br/min (04/28/20 11:27 AM) Temperature [96.8-100.4 DegF] 98.8 DegF (04/28/20 9:41 AM) Mode of Delivery (Oxygen) Room air (04/28/20 2:25 PM) Room air (04/28/20 9:41 AM) Blood pressure sites Arm, left (04/28/20 9:41 AM) Temperature Route Oral (04/28/20 9:41 AM)
--- OUTSIDE RECORDS SUMMARY | 2023-03-30 13:56 | XMS_ITS | Continuity of Care Document ---
Author Name Unknown Organization [facility] Address [address] [place] [address]- Care Team Providers Care Motor Racer Name Role Phone Not on Staff, PCP Primary Care Physician Unavail able Encounter [facility] Date(s): 07/09/21 - 08/08/21 [facility] [address] [place] [address]- Allergies, Adverse Reactions, Alerts Substance Reaction Severity Status codeine Active aspirin Active Haldol Active NSAIDs Active PROzac Active TraMADol Hydrochloride Activ e Immunizations Given and Recorded Vaccine Date Status Refusal Reason tetanus/diphtheria/pertussis, acel(Tdap) 1 05/14/21 Given SARS-CoV-2 (COVID-19) Ad26 vaccine 2 02/15/21 Give n Influenza Virus Vaccine (oldterm) 06/11/20 Recorde d 1Result Comment: [facility] [id number] 2Result Comment: [facility] [id number] Medications Albuterol (Eqv-ProAir HFA) 90 mcg/inh inhalation [...] opioid drug. Start Date: 04/02/21 Status: Ordered benzocaine-menthol 5%-1% topical spray 1 sprays, Topically, Daily, PRN as needed for pain, gargle and swish, hold for 1 minute, then spit out, # 177 mL, 0 Refills, Acute 04/29/22 13:01:00 EDT, 04/28/21 12:59:00 EDT, [place], [id number], Partial fill upon patient reque... Start Date: 04/28/21 Stop Date: 04/29/22 Status: Ordered benztropine 1 mg oral tablet 1 mg, 1, tablet, By Mouth, Daily at bedtime, # 30 tablet, Refills 0, Tot. Refills 0, Maintenance, 04/28/21 12:55:00 EDT, Route to Pharmacy Electronically, [id number], Partial fill upon patient request if the prescription is for... Start Date: 04/28/21 Status: Ordered benztropine 1 mg oral tablet 1 mg, 1, tablet, By Mouth, Daily at bedtime, # 7 tablet, Refills 4, Tot. Refills 4, Maintenance, 04/09/21 11:42:00 EDT, Route to Pharmacy Electronically, [id number], Partial fill upon patient request if the [...] Mouth, 3 times a day, PRN, # 42 tablet, Refills 0, Tot. Refills 0, Maintenance, for spasm, 05/17/21 9:33:00 EDT, Route to Pharmacy Electronically, [facility], Partial fill upon patient request if the prescription is for... Start Date: 05/17/21 Stop Date: 05/31/21 Status: Ordered cyclobenzaprine 10 mg oral tablet [...] 0 Refills, Maintenance, 04/09/21 11:42:00 EDT, Patch, [id number], Partial fill upon patient request if the [...] Every 8 hours, PRN as needed for fever, for 90 days, # 540 tablet, 0Refills, Acute 10/07/21 13:34:00 EST, 07/09/21 13:34:00 EST, ER Tablet, [facility], Partial fill upon patient request if the prescription is... Start Date: 07/09/21 Stop Date: 10/07/21 Status: Ordered montelukast 10 mg oral tablet 10 mg, 1, tablet, By Mouth, Daily in PM, # 30 tablet, Refills 0, Maintenance, 04/02/21 11:07:00 EDT, Partial fill upon patient request if the prescription is for a schedule II opioid drug. Start Date: 04/02/21 Status: Ordered QUEtiapine 100 mg oral tablet 1, tablet, By Mouth, Daily at bedtime, # 30 tablet, Refills 2, Route to Pharmacy Electronically, [facility], 174.4, cm, 07/30/21 13:48:00 EST, Height, 118.9, kg, 04/03/21 4:55:00 EDT, Dry Weight Start Date: 07/30/21 Status: Ordered Spiriva Respimat 1.25 mcg/inh inhalation aerosol 2 puffs, Inhalation, Daily, # 4 Gm, 0 Refills, Maintenance, 04/02/21 11:07:00 EDT, Aerosol, Partialfill upon patient request if the prescription is for a schedule II opioid drug. Start Date: 04/02/21 Status: Ordered topiramate 50 mg oral tablet 1 tablet, By Mouth, Daily, # 30 tablet, 5 Refills, [facility], 174.4, cm, 07/30/21 13:48:00 EST, Height, 118.9, kg, 04/03/21 4:55:00 EDT, Dry Weight Start Date: 07/30/21 Status: Ordered Problem List Condition Effective Dates Status Health Status Inform ant Asthma(Confirmed) Active HTN (hypertension)(Confirmed) Active Fibrodysplasia ossificans congenita(Confirmed) Active Herniated lumbar interverteb ral disc(Confirmed) Active Social History Social History Type Response Smoking Status 5-9 cigarettes (betw een 1/4 to 1/2 pack)/day in last 30 days; Other: 4 / day now; entered on: 02/15/21 Sex
--- OUTSIDE RECORDS SUMMARY | 2023-03-30 13:56 | XMS_ITS | Continuity of Care Document ---
Author Name Unknown Organization [facility] Address [address] [place] [address]- Care Team Providers Care Soap Press Feeder Name Role Phone Yevgeniy ÁLVAREZ, Polly Kapoor Primary Care Physician [place] [facility] [place]23 - 03/05/23 [facility] [address] [place], [place] [address] Allergies, Adverse Reactions, Alerts Substance Reaction Severity Status codeine Active aspirin Active TraMADol Hydrochloride Activ e Haldol Active PROzac Active Immunizations Given and Recorded Vaccine Date Status Refusal Reason [id number] bivalent booster vax 06/21/22 Recorded tetanus/diphtheria/pertussis, acel(Tdap) 1 05/14/21 Given SARS-CoV-2 (COVID-19) Ad26 vaccine 2 02/15/21 Give n Influenza Virus Vaccine (oldterm) 06/11/20 [facility] [id number] 2Result Comment: [facility] [id number] Medications amLODIPine 5 mg oral tablet 0 [...] 1 Refills, Maintenance, 11/08/22 11:26:00EDT, EC Capsule, [facility], Partial fill upon patient request if [...] capsule, 1 Refills, Maintenance, 02/27/23 15:17:00 EDT, ECCapsule, [facility], Partial fill upon patient request if [...] Care Team Personnel Name: Mahendra Maria Position: [facility] RN Supv Member Role: Primary Care Nurse Name: Jeni Solorio RN Position: S RN Member Role: Primary Care Nurse Name: Rebekah Delatorre RN Position: S RN Member Role: Primary Care Nurse Name: Polly Vuong MD, V Position: [facility] Physician - Primary Care Member Role: PCP Address: Address: [address] [place] [address] Name: Sandi Hightower RN Position: S RN Member Role: Primary Care Nurse Name: Angelita Almeida RN Position: S RN Member Role: Primary Care Nurse Care Team Related Persons Name: KEY DEWEY Name: AIDA DEWEY Address: [place] [address] Name: CARLIN ORTEGA
--- OUTSIDE RECORDS SUMMARY | 2023-03-30 13:56 | XMS_ITS | Continuity of Care Document ---
Author Name Unknown Organization [facility] Address [address] [place] [address]- Care Team Providers Care Policy Adviser Name Role Phone Terrie Kruger NP Primary Care Physician [place] [facility] [place] 05/23/21 [facility] [address] [place] [address]- Attending Physician: Admjose, Bryant8 Admitting Physician: Admtr, Ar8 Referring Physician: Admtr, Ar8 Allergies, Adverse Reactions, Alerts Substance Reaction Severity Status codeine Active aspirin Active NSAIDs Active TraMADol Hydrochloride Activ e Haldol Active PROzac Active Immunizations Given and Recorded Vaccine Date Status Refusal Reason tetanus/diphtheria/pertussis, acel(Tdap) 1 05/14/21 Given SARS-CoV-2 (COVID-19) Ad26 vaccine 2 02/15/21 Give n Influenza Virus Vaccine (oldterm) 06/11/20 Recorde d 1Result Comment: [facility] [id number] 2Result Comment: [facility] [id number] Medications Albuterol (Eqv-ProAir HFA) 90 mcg/inh inhalation [...] Acute 04/29/22 13:01:00 EDT, 04/28/21 12:59:00 EDT, [place], [id number], Partial fill upon patient reque... Start Date: 04/28/21 Stop Date: 04/29/22 Status: Ordered benztropine 1 mg oral tablet 1 mg, 1, tablet, By Mouth, Daily at bedtime, # 30 tablet, Refills 0, Tot. Refills 0, Maintenance, 04/28/21 12:55:00 EDT, Route to Pharmacy Electronically, [id number], Partial fill upon patient request if the prescription is for... Start Date: 04/28/21 Status: Ordered benztropine 1 mg oral tablet 1 mg, 1, tablet, By Mouth, Daily at bedtime, # 7 tablet, Refills 4, Tot. Refills 4, Maintenance, 04/09/21 11:42:00 EDT, Route to Pharmacy Electronically, [id number], Partial fill upon patient request if [...] 05/17/21 9:33:00 EDT, Route to Pharmacy Electronically, [facility], Partial fill upon patient request if [...] 0 Refills, Maintenance, 04/09/21 11:42:00 EDT, Patch, [id number], Partial fill upon patient request if [...] Maintenance,04/28/21 12:54:00 EDT, Route to Pharmacy Electronically, [id number], Partial fill upon patient request if the prescription is f... Start Date: 04/28/21 Status: Ordered SEROquel 100 mg oral tablet 100 mg, 1, tablet, By Mouth, Daily at bedtime, # 7 tablet, Refills 4, Tot. Refills 4, Maintenance, 04/09/21 11:42:00 EDT, Route to Pharmacy Electronically, [id number], Partialfill upon patient request if the prescription is fo... Start Date: 04/09/21 Stop Date: 05/14/21 Status: Ordered SEROquel 25 mg oral tablet 50 mg, 2, tablet, By Mouth, 2 times a day, # 120 tablet, Refills 0, Tot. Refills 0, Maintenance, 04/28/21 12:55:00 EDT, Route to Pharmacy Electronically, [id number], Partial fill upon patient request if the prescription is for... Start Date: 04/28/21 Status: Ordered SEROquel 25 mg oral tablet 50 mg, 2, tablet, By Mouth, 2 times a day, # 28 tablet, Refills 4, Tot. Refills 4, Maintenance, 04/09/21 11:42:00 EDT, Route to Pharmacy Electronically, [id number], Partial fill upon patient request if [...] capsule, 0 Refills, Maintenance, 04/28/21 12:55:00 EDT, [place], [id number], Partial fill upon patient request if the prescription is for a schedule II opioid drug., 177, cm, 04/23/21... Start Date: 04/28/21 Status: Ordered topiramate 50 mg oral tablet 1 tablet = 50 mg, By Mouth, Daily, # 7 tablet, 4 Refills, Maintenance, 04/09/21 11:43:00 EDT, Tablet, [id number], Partial fill upon patient request if [...]
--- OUTSIDE RECORDS SUMMARY | 2023-03-30 13:56 | XMS_ITS | Continuity of Care Document ---
Author Name Unknown Organization [facility] Address [address] [place] [address]- Care Team Providers Care Economic Research Analyst Name Role Phone Terrie Kruger NP Primary Care Physician [place] [facility] [place] 08/29/20 [facility] [address] [place] [address]- Attending Physician: AdmKimberly garcia Admitting Physician: Admtr, Kimberly Referring Physician: Admtr, Ar8 Allergies, Adverse Reactions, [...] 0 Refills, Maintenance, 06/24/20 16:06:00 EDT, Tablet, [facility]-, 131.2, kg, 05/31/20 10:53:00 EDT, Dry Weight Start Date: 06/24/20 Stop Date: 07/08/20 Status: Ordered Lexapro 10 mg oral tablet 0.5 tablet = 5 mg, By Mouth, Daily, # 7 tablet, 0 Refills, Maintenance, 06/24/20 16:05:00 EDT, [facility] 131.[facility], kg, 05/31/20 10:53:00 EDT, Dry [...] 11 Refills, Maintenance, 07/20/20 8:44:00 EST, Inhaler, [facility]-, 2 puffs Inhalation Every 4hours,PRN:Wheezing/Shortness of Breath, [...]
--- OUTSIDE RECORDS SUMMARY | 2023-03-30 13:56 | XMS_ITS | Continuity of Care Document ---
Author Name Unknown Organization [facility] Address [address] [place] [address]- Care Team Providers Care Smoke And Flame Specialist Name Role Phone Terrie Kruger NP Primary Care Physician [place] [facility] [place] Date(s): 12/18/20 - 01/17/21 [facility] [address] [place] [address]- Attending Physician: Kimberly Brunson Admitting Physician: AdmtrKimberly Referring Physician: Admtr Ar8 Allergies, Adverse Reactions, Alerts Substance Reaction Severity Status codeine Active aspirin Active Haldol Active PROzac Active NSAIDs Active Immunizations Given and Recorded Vaccine Date Status Refusal Reason Influenza Virus Vaccine (oldterm) 06/11/20 Recorde d Medications amLODIPine 10 mg oral tablet 1 tablet = 10 mg, By Mouth, Daily, # 90 tablet, 0 Refills, Maintenance, 11/24/20 8:12:00 EDT, [id number], Partial fill upon patient request if the prescription is for a schedule II opioid drug., 174, cm, 11/24/20 7:51:00 EDT, H... Start Date: 11/24/20 Stop Date: 02/22/21 Status: Ordered Breo Ellipta 200 mcg-25 mcg/inh inhalation powder 1 puffs, Inhalation, Daily, # 3 each, 0 Refills, Maintenance, 11/24/20 8:10:00 EDT, [id number], Partial fill upon patient request if the prescription is for a schedule II opioid drug., 1 puffs Inhalation Daily,x90 days, 174, cm... Start Date: 11/24/20 Stop Date: 02/22/21 Status: Ordered escitalopram 10 mg oral tablet 1 tablet = 10 mg, By Mouth, Daily, # 90 tablet, 0 Refills, Maintenance, 11/24/20 8:10:00 EDT, [id number], Partial fill upon patient request if the [...] tablet, 0 Refills, Maintenance, 11/24/20 8:11:00 EDT, [id number], Partial fill upon patient request if the prescription is for a schedule II opioid drug., 174, cm, 11/24/20 7:51:00 EDT, H... Start Date: 11/24/20 Stop Date: 02/22/21 Status: Ordered ProAir HFA 90 mcg/inh inhalation aerosol 2 puffs, Inhalation, Every 6 hours, PRN Wheezing/Shortness of Breath, # 1 each, 0 Refills, Maintenance, 11/24/20 8:13:00 EDT, [id number], Partial fill upon patient request if the [...]
--- OUTSIDE RECORDS SUMMARY | 2023-03-30 13:56 | XMS_ITS | Continuity of Care Document ---
Author Name Unknown Organization [facility] Address [address] [place] [address]- Care Team Providers Care Media Center Specialist Name Role Phone Yevgeniy ÁLVAREZ, Polly Kapoor Primary Care Physician En[place] [facility] [place] Date(s): 01/27/23 - 02/26/23 [facility] [address] [place], [place] [address] Allergies, Adverse Reactions, Alerts Substance Reaction Severity Status codeine Active aspirin Active Haldol Active PROzac Active TraMADol Hydrochloride Activ e Immunizations Given and Recorded Vaccine Date Status Refusal Reason [id number] bivalent booster vax 06/21/22 Recorded tetanus/diphtheria/pertussis, acel(Tdap) 1 05/14/21 Given SARS-CoV-2 (COVID-19) Ad26 vaccine 2 02/15/21 Give n Influenza Virus Vaccine (oldterm) 06/11/20 Recorde d 1Result Comment: [facility] [id number] 2Result Comment: [facility] [id number] Medications duloxetine 30 mg oral enteric coated capsule 1 capsule = 30 mg, By Mouth, 2 times a day, # 60 capsule, 1 Refills, Maintenance, 11/08/22 11:26:00EDT, EC Capsule, [facility], Partial fill upon patient request if the prescription is fora schedule II opioid drug., 175, cm, 10/19/22 9:28:... Start Date: 11/08/22 Status: Ordered Tylenol 8 Hour 650 mg [...] Care Team Personnel Name: Mahendra Maria Position: S RN Supv Member Role: Primary Care Nurse Name: Jeni Solorio RN Position: S RN Member Role: Primary Care Nurse Name: Rebekah Delatorre RN Position: S RN Member Role: Primary Care Nurse Name: Polly Vuong MD, V Position: S Physician - Primary Care Member Role: PCP Address: Address: [address] [place] [address] Name: Sandi Hightower RN Position: S RN Member Role: Primary Care Nurse Name: Angelita Almeida RN Position: S RN Member Role: Primary Care Nurse Care Team Related Persons Name: KEY DEWEY Name: AIDA DEWEY Address: [place] [address] Name: CARLIN ORTEGA
--- OUTSIDE RECORDS SUMMARY | 2023-03-30 13:56 | XMS_ITS | Continuity of Care Document ---
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 Role Phone Not on Staff, PCP Primary Care Physician Unavail able Encounter [facility] Date(s): 08/04/21 - 09/09/21 [facility] Adult [address] [place] [address]- Attending Physician: Saskia ANTHONY, Terrie Allergies, Adverse Reactions, Alerts Substance Reaction Severity Status codeine Active aspirin Active Haldol Active NSAIDs Active PROzac Active TraMADol Hydrochloride Activ e Immunizations Given and Recorded Vaccine Date Status Refusal Reason tetanus/diphtheria/pertussis, acel(Tdap) 1 05/14/21 Given SARS-CoV-2 (COVID-19) Ad26 vaccine 2 02/15/21 Give n Influenza Virus Vaccine (oldterm) 06/11/20 Recorde d 1Result Comment: [facility] [id number] 2Result Comment: [facility] [id number] Medications Albuterol (Eqv-ProAir HFA) 90 mcg/inh inhalation [...] Acute 04/29/22 13:01:00 EDT, 04/28/21 12:59:00 EDT, [place], [id number], Partial fill upon patient reque... Start Date: 04/28/21 Stop Date: 04/29/22 Status: Ordered benztropine 1 mg oral tablet 1 mg, 1, tablet, By Mouth, Daily at bedtime, # 30 tablet, Refills 0, Tot. Refills 0, Maintenance, 04/28/21 12:55:00 EDT, Route to Pharmacy Electronically, [id number], Partial fill upon patient request if the prescription is for... Start Date: 04/28/21 Status: Ordered benztropine 1 mg oral tablet 1 mg, 1, tablet, By Mouth, Daily at bedtime, # 7 tablet, Refills 4, Tot. Refills 4, Maintenance, 04/09/21 11:42:00 EDT, Route to Pharmacy Electronically, [id number], Partial fill upon patient request if [...] 05/17/21 9:33:00 EDT, Route to Pharmacy Electronically, [facility], Partial fill upon patient request if [...] By Mouth, 3 times a day, PRN, not to be taken in ocmbo with any other muscle relaxer, # 42 tablet, Refills 0, Tot. Refills 0, Maintenance, Pain , Moderate, 08/09/21 13:33:00 EST, Route to Pharmacy Electronically, [facility]... Start Date: 08/09/21 Stop Date: 08/23/21 Status: Ordered hydrocortisone 2.5% topical ointment 1 application, Topically, 2 times a day, # 20 Gm, 0 Refills, Maintenance, 04/02/21 11:07:00 EDT, Ointment, Partial fill upon patient request if the prescription is for a schedule II opioid drug. Start Date: 04/02/21 Status: Ordered lidocaine 5% topical film See Instructions, Topically Daily, # 10 patch, 0 Refills, Maintenance, 04/09/21 11:42:00 EDT, Patch, [id number], Partial fill upon patient request if [...] 13:34:00 EST, 07/09/21 13:34:00 EST, ER Tablet, [facility], Partial fill upon patient request if the prescription is... Start Date: 07/09/21 Stop Date: 10/07/21 Status: Ordered Medrol 4 mg oral tablet 1 pack/packet, By Mouth, Once, # 21 tablet, 0 Refills, Soft Stop, 08/09/21 13:32:00 EST, Tablet, [facility], Partial fill upon patient request if the prescription is for a schedule II opioid drug., 174.4, cm, 07/30/21 13:48:00 EST, Height, 1... Start Date: 08/09/21 Status: Ordered montelukast 10 mg oral tablet 10 mg, 1, tablet, By Mouth, Daily in PM, # 30 tablet, Refills 0, Maintenance, 04/02/21 11:07:00 EDT, Partial fill upon patient request if the prescription is for a schedule II opioid drug. Start Date: 04/02/21 Status: Ordered ProAir HFA 90 mcg/inh inhalation aerosol 1 puffs, Inhalation, 4 times a day, PRN as needed for wheezing, # 1 each, 0 Refills, Maintenance, 08/09/21 13:32:00 EST, Aerosol, [facility], Partial fill upon patient request if the prescription is for a schedule II opioid drug., 1 puffs In... Start Date: 08/09/21 Stop Date: 09/08/21 Status: Ordered QUEtiapine 100 mg oral tablet 1, tablet, By Mouth, Daily at bedtime, # 30 tablet, Refills 2, Route to Pharmacy Electronically, [facility], 174.4, cm, 07/30/21 13:48:00 EST, Height, [...] Mouth, Daily, # 30 tablet, 5 Refills, [facility], 174.4, cm, 07/30/21 13:48:00 EST, Height, [...]
--- OUTSIDE RECORDS SUMMARY | 2023-03-30 13:56 | XMS_ITS | Continuity of Care Document ---
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 Role Phone Terrie Kruger NP Primary Care Physician [place] [facility] [place] 06/01[place]21 - 07/01/21 [facility] [address] [place] [address]- Allergies, Adverse Reactions, Alerts Substance Reaction Severity Status codeine Active aspirin Active Haldol Active NSAIDs Active PROzac Active TraMADol Hydrochloride Activ e Immunizations Given and Recorded Vaccine Date Status Refusal Reason tetanus/diphtheria/pertussis, acel(Tdap) 1 05/14/21 Given SARS-CoV-2 (COVID-19) Ad26 vaccine 2 02/15/21 Give n Influenza Virus Vaccine (oldterm) 06/11/20 Recorde d 1Result Comment: [facility] [id number] 2Result Comment: [facility] [id number] Medications Albuterol (Eqv-ProAir HFA) 90 mcg/inh inhalation [...] Acute 04/29/22 13:01:00 EDT, 04/28/21 12:59:00 EDT, [place], [id number], Partial fill upon patient reque... Start Date: 04/28/21 Stop Date: 04/29/22 Status: Ordered benztropine 1 mg oral tablet 1 mg, 1, tablet, By Mouth, Daily at bedtime, # 30 tablet, Refills 0, Tot. Refills 0, Maintenance, 04/28/21 12:55:00 EDT, Route to Pharmacy Electronically, [id number], Partial fill upon patient request if the prescription is for... Start Date: 04/28/21 Status: Ordered benztropine 1 mg oral tablet 1 mg, 1, tablet, By Mouth, Daily at bedtime, # 7 tablet, Refills 4, Tot. Refills 4, Maintenance, 04/09/21 11:42:00 EDT, Route to Pharmacy Electronically, [id number], Partial fill upon patient request [...] 05/17/21 9:33:00 EDT, Route to Pharmacy Electronically, [facility], Partial fill upon patient request if [...] 0 Refills, Maintenance, 04/09/21 11:42:00 EDT, Patch, [id number], Partial fill upon patient request [...] at bedtime, # 30 tablet, Refills 0, Route to Pharmacy Electronically, [facility], 174.4, cm, 05/14/21 8:26:00 EDT, Height, 118.9, kg, 04/03/21 4:55:00 EDT, Dry Weight Start Date: 06/30/21 Status: Ordered QUEtiapine 25 mg oral tablet 2, tablet, By Mouth, 2 times a day, # 120 tablet, Refills 0, Route to Pharmacy Electronically, [facility], 174.4, cm, 05/14/21 8:26:00 EDT, Height, 118.9, kg, 04/03/21 4:55:00 EDT, Dry Weight Start Date: 06/30/21 Status: Ordered Spiriva Respimat 1.25 mcg/inh inhalation aerosol 2 puffs, Inhalation, Daily, # 4 Gm, 0 Refills, Maintenance, 04/02/21 11:07:00 EDT, Aerosol, Partialfill upon patient request if the prescription is for a schedule II opioid drug. Start Date: 04/02/21 Status: Ordered topiramate 50 mg oral tablet 1 tablet, By Mouth, Daily, # 30 tablet, 0 Refills, [facility], 174.4, cm, 05/14/21 8:26:00 EDT, Height, 118.9, kg, 04/03/21 4:55:00 EDT, Dry Weight Start Date: 06/30/21 Status: Ordered Problem List Condition Effective Dates Status Health Status Inform ant Asthma(Confirmed) Active HTN (hypertension)(Confirmed) Active Fibrodysplasia ossificans congenita(Confirmed) Active Herniated lumbar interverteb ral disc(Confirmed) Active Social History Social History Type Response Smoking Status 5-9 cigarettes (betw een 1/4 to 1/2 pack)/day in last 30 days; Other: 4 / day now; entered on: 02/15/21 Sex
--- OUTSIDE RECORDS SUMMARY | 2023-03-30 13:56 | XMS_ITS | Continuity of Care Document ---
Author Name Unknown Organization [facility] Address [address] [place] [address]- Care Team Providers Care Supervisor Glycerin Name Role Phone Not on Staff, PCP Primary Care Physician Unavail able [place] [facility] [place]/08/22 - 09/07/22 [facility] [address] [place], [place] [address] Allergies, Adverse Reactions, Alerts Substance Reaction Severity Status codeine Active aspirin Active Haldol Active NSAIDs Active PROzac Active TraMADol Hydrochloride Activ e Immunizations Given and Recorded Vaccine Date Status Refusal Reason tetanus/diphtheria/pertussis, acel(Tdap) 1 05/14/21 Given SARS-CoV-2 (COVID-19) Ad26 vaccine 2 02/15/21 Give n Influenza Virus Vaccine (oldterm) 06/11/20 Recorde d 1Result Comment: [facility] [id number] 2Result Comment: [facility] [id number] Medications amLODIPine 10 mg oral tablet 1 [...] 01/27/22 8:24:00 EDT, Route to Pharmacy Electronically, [facility], Partial fill upon patient request if the prescription is for a schedule II o... Start Date: 01/27/22 Stop Date: 02/26/22 Status: Ordered clonazePAM 1 mg oral tablet 1 tablet = 1 mg, By Mouth, 2 times a day, PRN Anxiety, # 60 tablet, 0 Refills, Maintenance, 01/27/22 8:34:00 EDT, Tablet, [facility], Partial fill upon patient request if the prescription is for a schedule II opioid drug., 175, cm, 01/26/22... Start Date: 01/27/22 Stop Date: 02/26/22 Status: Ordered fenofibrate 43 mg oral capsule 1 capsule = 43 mg, By Mouth, Daily, # 30 capsule, 0 Refills, Maintenance, 01/27/22 8:36:00 EDT, Capsule, [facility], Partial fill upon patient request if [...] 0 Refills, Maintenance, 11/19/21 17:24:00 EDT, Ointment, [facility], Partial fill upon patient request if [...] 0 Refills, Maintenance, 01/27/22 8:38:00 EDT, Patch, [facility], Partial fill upon patient request if the prescription is for a schedule II opioid drug., 1 patch Topically Daily, 175, cm, 01/26/22 21:23... Start Date: 01/27/22 Status: Ordered [id number] oral powder for reconstitution TAKE 1 PACKET BY MOUTH DAILY; MIX IN WATER Start Date: 01/13/22 Status: Ordered prazosin 1 mg oral capsule 1 mg, 1, capsule, By Mouth, Daily at bedtime, # 30 capsule, Refills 0, Tot. Refills 0, Maintenance,01/27/22 8:38:00 EDT, Route to Pharmacy Electronically, [facility], Partial fill upon patient request if [...] 0 Refills, Maintenance, 01/27/22 8:30:00 EDT, Tablet, [facility], Partial... Start Date: 01/27/22 Stop Date: [...] 01/27/22 8:39:00 EDT, Route to Pharmacy Electronically, [facility], Partial fill upon patient request if the... Start Date: 01/27/22 Stop Date: 02/26/22 Status: Ordered topiramate 50 mg oral tablet TAKE 1 TABLET BY MOUTH EVERY DAY Start Date: 01/13/22 Status: Ordered zolpidem 5 mg oral tablet 1 tablet = 5 mg, By Mouth, Daily at bedtime, # 30 tablet, 0 Refills, Maintenance, 01/27/22 8:39:00 EDT, Tablet, [facility], Partial fill upon patient request if the prescription is for a schedule II opioid drug., 175, cm, 01/26/22 21:23:00 E... Start Date: 01/27/22 Stop Date: 02/26/22 Status: Ordered Problem List Condition Confirmation Course Effective Dates Status H ealth Status Informant Asthma Confirmed Active HTN (hypertension) Confirmed Active Fibrodysplasia ossificans congenita Confirmed Active Herniated lumbar intervertebral disc Confirmed Active Severe obesity Confirmed Active Social History Social History Type Response Smoking Status 10 or more cigarette s (1/2 pack or more)/day in last 30 days; Interested in cessation: No; Patient wants NRT during admission Yes; Other: 1/2 pack daily; entered on: 01/13/22 Sex Patient Care team information Care Team Personnel Name: Mahendra Maria Position: [facility] RN Supv Member Role: Primary Care Nurse Name: Jeni Solorio RN Position: S RN Member Role: Primary Care Nurse Name: Rebekah Delatorre RN Position: S RN Member Role: Primary Care Nurse Name: Sandi Hightower RN Position: S RN Member Role: Primary Care Nurse Name: Angelita Almeida RN Position: S RN Member Role: Primary Care Nurse Name: Not on Staff, PCP Position: [facility] Physician (General Medicine) Member Role: PCP Name: Zahira Lopez RN Position: S RN Member Role: Primary Care Nurse Name: Marcelino Fermin RN Position: S RN Member Role: Primary Care Nurse Care Team Related Persons Name: URVASHI DEWEYCEDRIC Address: [place] [address] Name: NO, CARLIN
--- OUTSIDE RECORDS SUMMARY | 2023-03-30 13:57 | XMS_ITS | Continuity of Care Document ---
Author Name Unknown Organization [facility] Address [address] [place] [address]- Care Team Providers Care Superintendent Pressure Name Role Phone Yevgeniy ÁLVAREZ, Polly Kapoor Primary Care Physician [phone] Encounter [place] Date(s): 01/13/23 - 02/12/23 [facility] [address] [place], [place] [address] Allergies, Adverse Reactions, Alerts Substance Reaction Severity Status codeine Active aspirin Active Haldol Active PROzac Active TraMADol Hydrochloride Activ e Immunizations Given and Recorded Vaccine Date Status Refusal Reason [id number] bivalent booster vax 06/21/22 Recorded tetanus/diphtheria/pertussis, acel(Tdap) 1 05/14/21 Given SARS-CoV-2 (COVID-19) Ad26 vaccine 2 02/15/21 Give n Influenza Virus Vaccine (oldterm) 06/11/20 Recorde d 1Result Comment: [facility] [id number] 2Result Comment: [facility] [id number] Medications duloxetine 30 mg oral enteric coated capsule 1 capsule = 30 mg, By Mouth, 2 times a day, # 60 capsule, 1 Refills, Maintenance, 11/08/22 11:26:00EDT, EC Capsule, [facility], Partial fill upon patient request if [...] Nurse Name: Polly Vuong MD, V Position: [facility] Physician - Primary Care Member Role: PCP Address: Address: [address] [place] [id number] Name: Sandi Hightower RN Position: S RN Member Role: Primary Care Nurse Name: Angelita Almeida RN Position: S RN Member Role: Primary Care Nurse Care Team Related Persons Name: KEY DEWEY Name: AIDA DEWEY Address: [place] [address] Name: SHANNON, CARLIN
--- OUTSIDE RECORDS SUMMARY | 2023-03-30 13:57 | XMS_ITS | Continuity of Care Document ---
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 Role Phone Not on Staff, PCP Primary Care Physician Unavail able Encounter [facility] [place] Date(s): 05/31/20 - 05/31/[address] [address]- [facility] Encounter Diagnosis Myofascial pain(Final) - 05/31/20 Discharge Disposition: A-D/C Home Attending Physician: Roberto ÁLVAREZ, Joanne Parada Admitting Physician: Roberto ÁLVAREZ, Joanne Parada Referring Physician: Not on Staff, Referring MD Allergies, Adverse Reactions, Alerts Substance Reaction Severity Status codeine Active aspirin Active Haldol Active NSAIDs Active PROzac Active Medications Tylenol 325 mg oral capsule 2 capsule = 650 mg, By Mouth, 3 times a day, PRN as needed for pain, # 90 capsule, 0 Refills, Maintenance, 05/31/20 10:09:00 EDT, Capsule, [id number], 131.2, kg, 05/31/20 8:59:00 EDT, Dry Weight Start Date: 05/31/20 Status: Ordered Vital Signs Most recent to oldest [Reference Range]: 1 2 3 Weight 131.2 kg (05/31/20 10:53 AM) 131.2 kg (05/31/20 8:59 AM) Oxygen Saturation [94-100 %] 100 % (05/31/20 10:53 AM) 100 % (05/31/20 8:59 AM) 100 % (05/31/20 8:54 AM) Pulse Rate [55-90 bpm] 92 bpm *H* (05/31/20 10:53 AM) 94 bpm *H* (05/31/20 8:59 AM) 97 bpm *H* (05/31/20 8:54 AM) Blood Pressure [90-138/55-84 mm Hg] 131/78mm Hg (05/31/20 10:53 AM) 147/73mm Hg *H* (05/31/20 8:59 AM) Respiratory Rate [16-30 br/min] 17 br/min (05/31/20 10:53 AM) 16 br/min (05/31/20 8:59 AM) Temperature [96.8-100.4 DegF] 98 DegF (05/31/20 10:53 AM) 97.7 DegF (05/31/20 8:59 AM) Mode of Delivery (Oxygen) Room air (05/31/20 10:53 AM) Room air (05/31/20 8:59 AM) Room air (05/31/20 8:54 AM) Blood pressure sites Arm, right (05/31/20 10:53 AM) Arm, right (05/31/20 8:59 AM) Temperature Route Oral (05/31/20 10:53 AM) Oral (05/31/20 8:59 AM) Dry Weight 131.2 kg (05/31/20 10:53 AM) 131.2 kg (05/31/20 8:59 AM) Weight Obtained Via Standing scale (05/31/20 8:59 AM) Dry Weight Obtained Via Standing scale (05/31/20 8:59 AM)
--- OUTSIDE RECORDS SUMMARY | 2023-03-30 13:57 | XMS_ITS | Continuity of Care Document ---
Author Name Unknown Organization [facility] Address [address] [place] [address]- Care Team Providers Care Instrument Tester Name Role Phone Terrie Kruger NP Primary Care Physician [place] [facility] [place]23[place]20 - 01/22/21 [facility] [address] [place] [address]- Allergies, Adverse Reactions, Alerts Substance Reaction Severity Status codeine Active aspirin Active Haldol Active NSAIDs Active PROzac Active Immunizations Given and Recorded Vaccine Date Status Refusal Reason Influenza Virus Vaccine (oldterm) 06/11/20 Recorde d Medications amLODIPine 10 mg oral tablet 1 tablet = 10 mg, By Mouth, Daily, # 90 tablet, 0 Refills, Maintenance, 11/24/20 8:12:00 EDT, [id number], Partial fill upon patient request if the prescription is for a schedule II opioid drug., 174, cm, 11/24/20 7:51:00 EDT, H... Start Date: 11/24/20 Stop Date: 02/22/21 Status: Ordered Breo Ellipta 200 mcg-25 mcg/inh inhalation powder 1 puffs, Inhalation, Daily, # 3 each, 0 Refills, Maintenance, 11/24/20 8:10:00 EDT, [id number], Partial fill upon patient request if the prescription is for a schedule II opioid drug., 1 puffs Inhalation Daily,x90 days, 174, cm... Start Date: 11/24/20 Stop Date: 02/22/21 Status: Ordered escitalopram 10 mg oral tablet 1 tablet = 10 mg, By Mouth, Daily, # 90 tablet, 0 Refills, Maintenance, 11/24/20 8:10:00 EDT, [id number], Partial fill upon patient request if the [...] tablet, 0 Refills, Maintenance, 11/24/20 8:11:00 EDT, [id number], Partial fill upon patient request if the prescription is for a schedule II opioid drug., 174, cm, 11/24/20 7:51:00 EDT, H... Start Date: 11/24/20 Stop Date: 02/22/21 Status: Ordered ProAir HFA 90 mcg/inh inhalation aerosol 2 puffs, Inhalation, Every 6 hours, PRN Wheezing/Shortness of Breath, # 1 each, 0 Refills, Maintenance, 11/24/20 8:13:00 EDT, [id number], Partial fill upon patient request if [...]
--- OUTSIDE RECORDS SUMMARY | 2023-03-30 13:57 | XMS_ITS | Continuity of Care Document ---
Author Name Unknown Organization [facility] Adult Address [address] [place] [address]- Care Team Providers Care Gold Marker Name Role Phone Not on Staff, PCP Primary Care Physician Unavail able Encounter [facility] [place] Date(s): 08/09/21 - 08/16/21 [facility] [address] [place] [address]- Encounter Diagnosis Asthma exacerbation(Discharge Diagnosis) - 08/09/21 Loss of sensation(Discharge Diagnosis) - 08/09/21 Eczema(Discharge Diagnosis) - 08/09/21 Attending Physician: Terrie Kruger NP Allergies, Adverse Reactions, Alerts Substance Reaction Severity Status codeine Active aspirin Active Haldol Active NSAIDs Active PROzac Active TraMADol Hydrochloride Activ e Immunizations Given and Recorded Vaccine Date Status Refusal Reason tetanus/diphtheria/pertussis, acel(Tdap) 1 05/14/21 Given SARS-CoV-2 (COVID-19) Ad26 vaccine 2 02/15/21 Give n Influenza Virus Vaccine (oldterm) 06/11/20 Recorde d 1Result Comment: [facility] [id number] 2Result Comment: [facility] [id number] Medications Albuterol (Eqv-ProAir HFA) 90 mcg/inh inhalation [...] Acute 04/29/22 13:01:00 EDT, 04/28/21 12:59:00 EDT, [place], [id number], Partial fill upon patient reque... Start Date: 04/28/21 Stop Date: 04/29/22 Status: Ordered benztropine 1 mg oral tablet 1 mg, 1, tablet, By Mouth, Daily at bedtime, # 30 tablet, Refills 0, Tot. Refills 0, Maintenance, 04/28/21 12:55:00 EDT, Route to Pharmacy Electronically, [id number], Partial fill upon patient request if the prescription is for... Start Date: 04/28/21 Status: Ordered benztropine 1 mg oral tablet 1 mg, 1, tablet, By Mouth, Daily at bedtime, # 7 tablet, Refills 4, Tot. Refills 4, Maintenance, 04/09/21 11:42:00 EDT, Route to Pharmacy Electronically, [id number], Partial fill upon patient request if the [...] 05/17/21 9:33:00 EDT, Route to Pharmacy Electronically, [facility], Partial fill upon patient request if [...] 08/09/21 13:33:00 EST, Route to Pharmacy Electronically, [facility]... Start Date: 08/09/21 Stop Date: 08/23/21 Status: Ordered hydrocortisone 2.5% topical ointment 1 application, Topically, 2 times a day, # 20 Gm, 0 Refills, Maintenance, 04/02/21 11:07:00 EDT, Ointment, Partial fill upon patient request if the prescription is for a schedule II opioid drug. Start Date: 04/02/21 Status: Ordered hydrocortisone 2.5% topical ointment 1 application, Topically, 2 times a day, for 14 days, # 20 Gm, 0 Refills, Acute 08/23/21 13:33:00 EST, 08/09/21 13:33:00 EST, Ointment, [facility], Partial fill upon patient request if the prescription is for a schedule II opioid drug., 1 ap... Start Date: 08/09/21 Stop Date: 08/23/21 Status: Ordered lidocaine 5% topical film See Instructions, Topically Daily, # 10 patch, 0 Refills, Maintenance, 04/09/21 11:42:00 EDT, Patch, [id number], Partial fill upon patient request if the [...] 13:34:00 EST, 07/09/21 13:34:00 EST, ER Tablet, [facility], Partial fill upon patient request if the prescription is... Start Date: 07/09/21 Stop Date: 10/07/21 Status: Ordered Medrol 4 mg oral tablet 1 pack/packet, By Mouth, Once, # 21 tablet, 0 Refills, Soft Stop, 08/09/21 13:32:00 EST, Tablet, [facility], Partial fill upon patient request if [...] 0 Refills, Maintenance, 08/09/21 13:32:00 EST, Aerosol, [facility], Partial fill upon patient request if the prescription is for a schedule II opioid drug., 1 puffs In... Start Date: 08/09/21 Stop Date: 09/08/21 Status: Ordered QUEtiapine 100 mg oral tablet 1, tablet, By Mouth, Daily at bedtime, # 30 tablet, Refills 2, Route to Pharmacy Electronically, [facility], 174.4, cm, 07/30/21 13:48:00 EST, Height, [...] Mouth, Daily, # 30 tablet, 5 Refills, [facility], 174.4, cm, 07/30/21 13:48:00 EST, Height, 118.9, kg, 04/03/21 4:55:00 EDT, Dry Weight Start Date: 07/30/21 Status: Ordered Problem List Condition Effective Dates Status Health Status Inform ant Asthma(Confirmed) Active HTN (hypertension)(Confirmed) Active Fibrodysplasia ossificans congenita(Confirmed) Active Herniated lumbar interverteb ral disc(Confirmed) Active Diagnosis Diagnosis Type Effective Dates Health Status Clinical Service Informant Asthma exacerbation Discharge Diagnosis 08/09/21 Loss of sensation Discharge Diagnosis 08/09/21 Eczema Discharge Diagnosis 08/09/21 Social History Social History Type Response Smoking Status 5-9 cigarettes (betw een 1/4 to 1/2 pack)/day in last 30 days; Other: 4 / day now; entered on: 02/15/21 Sex
--- OUTSIDE RECORDS SUMMARY | 2023-03-30 13:57 | XMS_ITS | Continuity of Care Document ---
Author Name Unknown Organization [facility] Adult Address [address] [place] [address]- Care Team Providers Care Supervisor Edging Name Role Phone Saskia ANTHONY, Terrie Primary Care Physician Encounter [facility] [place] ACCT R [id number] Date(s): 02/15/21 - 05/12/21 [facility] Adult [address] [place] [address]- Attending Physician: Terrie Kruger NP Allergies, Adverse Reactions, Alerts Substance Reaction Severity Status codeine Active aspirin Active Haldol Active NSAIDs Active PROzac Active TraMADol Hydrochloride Activ e Immunizations Given and Recorded Vaccine Date Status Refusal Reason SARS-CoV-2 (COVID-19) Ad26 vaccine 1 02/15/21 Give n Influenza Virus Vaccine (oldterm) 06/11/20 Recorde d 1Result Comment: [facility] [id number] Medications Albuterol (Eqv-ProAir HFA) 90 mcg/inh inhalation [...] Acute 04/29/22 13:01:00 EDT, 04/28/21 12:59:00 EDT, [place], [id number], Partial fill upon patient reque... Start Date: 04/28/21 Stop Date: 04/29/22 Status: Ordered benztropine 1 mg oral tablet 1 mg, 1, tablet, By Mouth, Daily at bedtime, # 30 tablet, Refills 0, Tot. Refills 0, Maintenance, 04/28/21 12:55:00 EDT, Route to Pharmacy Electronically, [id number], Partial fill upon patient request if the prescription is for... Start Date: 04/28/21 Status: Ordered benztropine 1 mg oral tablet 1 mg, 1, tablet, By Mouth, Daily at bedtime, # 7 tablet, Refills 4, Tot. Refills 4, Maintenance, 04/09/21 11:42:00 EDT, Route to Pharmacy Electronically, [id number], Partial fill upon patient request if [...] 0 Refills, Maintenance, 04/09/21 11:42:00 EDT, Patch, [id number], Partial fill upon patient request if [...] Maintenance,04/28/21 12:54:00 EDT, Route to Pharmacy Electronically, [id number], Partial fill upon patient request if the prescription is f... Start Date: 04/28/21 Status: Ordered SEROquel 100 mg oral tablet 100 mg, 1, tablet, By Mouth, Daily at bedtime, # 7 tablet, Refills 4, Tot. Refills 4, Maintenance, 04/09/21 11:42:00 EDT, Route to Pharmacy Electronically, [id number], Partialfill upon patient request if the prescription is fo... Start Date: 04/09/21 Stop Date: 05/14/21 Status: Ordered SEROquel 25 mg oral tablet 50 mg, 2, tablet, By Mouth, 2 times a day, # 120 tablet, Refills 0, Tot. Refills 0, Maintenance, 04/28/21 12:55:00 EDT, Route to Pharmacy Electronically, [id number], Partial fill upon patient request if the prescription is for... Start Date: 04/28/21 Status: Ordered SEROquel 25 mg oral tablet 50 mg, 2, tablet, By Mouth, 2 times a day, # 28 tablet, Refills 4, Tot. Refills 4, Maintenance, 04/09/21 11:42:00 EDT, Route to Pharmacy Electronically, [id number], Partial fill upon patient request if [...] 0 Refills, Maintenance, 04/28/21 12:55:00 EDT, ERCapsule, [id number], Partial fill upon patient request if the prescription is for a schedule II opioid drug., 177, cm, 04/23/21... Start Date: 04/28/21 Status: Ordered topiramate 50 mg oral tablet 1 tablet = 50 mg, By Mouth, Daily, # 7 tablet, 4 Refills, Maintenance, 04/09/21 11:43:00 EDT, Tablet, [id number], Partial fill upon patient request if [...]
--- OUTSIDE RECORDS SUMMARY | 2023-03-30 13:57 | XMS_ITS | Continuity of Care Document ---
Author Name Unknown Organization [facility] Adult Address [address] [place] [address]- Care Team Providers Care Assemblyman Or Woman Name Role Phone Terrie Kruger NP Primary Care Physician Encounter [facility] ACCT R [id number] Date(s): 04/29/21 - 05/06/21 [facility] Adult [address] [place] [address]- Encounter Diagnosis Pharyngitis, acute(Discharge Diagnosis) - 04/29/21 Attending Physician: Not on Staff, Attending MD Referring Physician: Terrie Kruger NP Allergies, Adverse Reactions, Alerts Substance Reaction Severity Status codeine Active aspirin Active Haldol Active NSAIDs Active PROzac Active TraMADol Hydrochloride Activ e Immunizations Given and Recorded Vaccine Date Status Refusal Reason SARS-CoV-2 (COVID-19) Ad26 vaccine 1 02/15/21 Give n Influenza Virus Vaccine (oldterm) 06/11/20 Recorde d 1Result Comment: [facility] [id number] Medications Albuterol (Eqv-ProAir HFA) 90 mcg/inh inhalation [...] 05/08/21 12:56:00 EDT, 04/28/21 12:56:00 EDT, Tablet, [id number], Partial fill upon patient request if the prescription is for a schedule II opioid... Start Date: 04/28/21 Stop Date: 05/08/21 Status: Ordered benzocaine-menthol 5%-1% topical spray 1 sprays, Topically, Daily, PRN as needed for pain, gargle and swish, hold for 1 minute, then spit out, # 177 mL, 0 Refills, Acute 04/29/22 13:01:00 EDT, 04/28/21 12:59:00 EDT, [place], [id number], Partial fill upon patient reque... Start Date: 04/28/21 Stop Date: 04/29/22 Status: Ordered benztropine 1 mg oral tablet 1 mg, 1, tablet, By Mouth, Daily at bedtime, # 30 tablet, Refills 0, Tot. Refills 0, Maintenance, 04/28/21 12:55:00 EDT, Route to Pharmacy Electronically, [id number], Partial fill upon patient request if the prescription is for... Start Date: 04/28/21 Status: Ordered benztropine 1 mg oral tablet 1 mg, 1, tablet, By Mouth, Daily at bedtime, # 7 tablet, Refills 4, Tot. Refills 4, Maintenance, 04/09/21 11:42:00 EDT, Route to Pharmacy Electronically, [id number], Partial fill upon patient request if the [...] 0 Refills, Maintenance, 04/09/21 11:42:00 EDT, Patch, [id number], Partial fill upon patient request if the [...] Maintenance,04/28/21 12:54:00 EDT, Route to Pharmacy Electronically, [id number], Partial fill upon patient request if the prescription is f... Start Date: 04/28/21 Status: Ordered SEROquel 100 mg oral tablet 100 mg, 1, tablet, By Mouth, Daily at bedtime, # 7 tablet, Refills 4, Tot. Refills 4, Maintenance, 04/09/21 11:42:00 EDT, Route to Pharmacy Electronically, [id number], Partialfill upon patient request if the prescription is fo... Start Date: 04/09/21 Stop Date: 05/14/21 Status: Ordered SEROquel 25 mg oral tablet 50 mg, 2, tablet, By Mouth, 2 times a day, # 120 tablet, Refills 0, Tot. Refills 0, Maintenance, 04/28/21 12:55:00 EDT, Route to Pharmacy Electronically, [id number], Partial fill upon patient request if the prescription is for... Start Date: 04/28/21 Status: Ordered SEROquel 25 mg oral tablet 50 mg, 2, tablet, By Mouth, 2 times a day, # 28 tablet, Refills 4, Tot. Refills 4, Maintenance, 04/09/21 11:42:00 EDT, Route to Pharmacy Electronically, [id number], Partial fill upon patient request if the [...] 0 Refills, Maintenance, 04/28/21 12:55:00 EDT, [place], [id number], Partial fill upon patient request if the prescription is for a schedule II opioid drug., 177, cm, 04/23/21... Start Date: 04/28/21 Status: Ordered topiramate 50 mg oral tablet 1 tablet = 50 mg, By Mouth, Daily, # 7 tablet, 4 Refills, Maintenance, 04/09/21 11:43:00 EDT, Tablet, [id number], Partial fill upon patient request if the prescription is for a schedule II opioid drug., 177, cm, 04/09/21 11:26:... Start Date: 04/09/21 Stop Date: 05/14/21 Status: Ordered Problem List Condition Effective Dates Status Health Status Inform ant Asthma(Confirmed) Active HTN (hypertension)(Confirmed) Active Fibrodysplasia ossificans congenita(Confirmed) Active Herniated lumbar interverteb ral disc(Confirmed) Active Diagnosis Diagnosis Type Effective Dates Health Status Cl inical Service Informant Pharyngitis, acute Discharge Diagnosis 04/29/21 Vital Signs Most recent to oldest [Reference Range]: 1 Height 177 cm (04/28/21 4:19 PM) Social History Social History Type Response Smoking Status 5-9 cigarettes (betw een 1/4 to 1/2 pack)/day in last 30 days; Other: 4 / day now; entered on: 02/15/21 Sex
--- OUTSIDE RECORDS SUMMARY | 2023-03-30 13:57 | XMS_ITS | Continuity of Care Document ---
Author Name Unknown Organization [facility] Address [address] [place] [address]- Care Team Providers Care Production Quality Analyst Name Role Phone Terrie Kruger NP Primary Care Phys[id number] - 02[facility]22[facility] [address] [place] [address]- Encounter Diagnosis Uncontrolled severe persistent asthma(Discharge Diagnosis) - 02/15/21 Herniated lumbar intervertebral disc(Discharge Diagnosis) - 02/15/21 Eczema(Discharge Diagnosis) - 02/15/21 Encounter for smoking cessation counseling(Discharge Diagnosis) - 02/15/21 Insomnia(Discharge Diagnosis) - 02/15/21 Attending Physician: Terrie Kruger NP Allergies, Adverse Reactions, Alerts Substance Reaction Severity Status codeine Active aspirin Active Haldol Active NSAIDs Active PROzac Active Immunizations Given and Recorded Vaccine Date Status Refusal Reason SARS-CoV-2 (COVID-19) Ad26 vaccine 1 02/15/21 Give n Influenza Virus Vaccine (oldterm) 06/11/20 Recorde d 1Result Comment: [facility] 80757-209-52 Medications amLODIPine 10 mg oral tablet 1 tablet = 10 mg, By Mouth, Daily, # 90 tablet, 0 Refills, Maintenance, 11/24/20 8:12:00 EDT, HrpnsWosnnzqwse-[id number], Partial fill upon patient request if the prescription is for a schedule II opioid drug., 174, cm, 11/24/20 7:51:00 EDT, H... Start Date: 11/24/20 Stop Date: 02/22/21 Status: Ordered Breo Ellipta 200 mcg-25 mcg/inh inhalation powder 1 puffs, Inhalation, Daily, # 3 each, 0 Refills, Maintenance, 11/24/20 8:10:00 EDT, [id number], Partial fill upon patient request if the prescription is for a schedule II opioid drug., 1 puffs Inhalation Daily,x90 days, 174, cm... Start Date: 11/24/20 Stop Date: 02/22/21 Status: Ordered cyclobenzaprine 10 mg oral tablet 10 mg, 1, tablet, By Mouth, 3 times a day, PRN, # 63 tablet, Refills 0, Tot. Refills 0, Maintenance, Spasm, 02/15/21 10:32:00 EDT, Route to Pharmacy Electronically, [id number], Partial fill upon patient request if the prescript... Start Date: 02/15/21 Stop Date: 03/08/21 Status: Ordered escitalopram 10 mg oral tablet 1 tablet = 10 mg, By Mouth, Daily, # 90 tablet, 0 Refills, Maintenance, 11/24/20 8:10:00 EDT, WambkWdebqweklh-[id number], Partial fill upon patient request if the prescription is for a schedule II opioid drug., 174, cm, 11/24/20 7:51:00 EDT, H... Start Date: 11/24/20 Stop Date: 02/22/21 Status: Ordered Home Blood Pressure Monitor See Instructions, # 1 each, Maintenance, BP CUFF take daily, 11/20/20 13:43:00 EDT, Supply Start Date: 11/20/20 Status: Ordered hydrocortisone 2.5% topical ointment 1 application, Topically, 2 times a day, for 14 days, # 20 Gm, 0 Refills, Acute 03/01/21 10:38:00 EDT, 02/15/21 10:38:00 EDT, Ointment, [id number], Partial fill upon patient request if the prescription is for a schedule II opio... Start Date: 02/15/21 Stop Date: 03/01/21 Status: Ordered losartan 25 mg oral tablet 1 tablet = 25 mg, By Mouth, Daily, # 90 tablet, 0 Refills, Maintenance, 11/24/20 8:11:00 EDT, [id number]-[id number], Partial fill upon patient request if the prescription is for a schedule II opioid drug., 174, cm, 11/24/20 7:51:00 EDT, H... Start Date: 11/24/20 Stop Date: 02/22/21 Status: Ordered Melatonin 10 mg oral tablet 1 tablet = 10 mg, By Mouth, Daily at bedtime, for 30 days, # 30 tablet, 0 Refills, Acute 03/17/21 10:35:00 EDT, 02/15/21 10:35:00 EDT, [id number], Partial fill upon patient request if the prescription is for a schedule II opioi... Start Date: 02/15/21 Stop Date: 03/17/21 Status: Ordered montelukast 10 mg oral tablet 10 mg, 1, tablet, By Mouth, Daily in PM, # 90 tablet, Refills 0, Tot. Refills 0, Maintenance, 02/15/21 10:38:00 EDT, Route to Pharmacy Electronically, [id number], Partial fillupon patient request if the prescription is for a s... Start Date: 02/15/21 Stop Date: 05/16/21 Status: Ordered Nicorette 2 mg oral transmucosal gum 1 each = 2 mg, Chew, Every 2 hours, PRN as needed for smoking cessation, for 2 week(s), # 40 each, 0 Refills, Acute 03/01/21 10:43:00 EDT, 02/15/21 10:43:00 EDT, Gum, [id number], Partial fill upon patient request if the prescri... Start Date: 02/15/21 Stop Date: 03/01/21 Status: Ordered ProAir HFA 90 mcg/inh inhalation aerosol 2 puffs, Inhalation, Every 6 hours, PRN Wheezing/Shortness of Breath, # 1 each, 0 Refills, Maintenance, 02/15/21 10:32:00 EDT, [id number], Partial fill upon patient request ifthe prescription is for a schedule II opioid drug.,... Start Date: 02/15/21 Stop Date: 03/17/21 Status: Ordered Spiriva Respimat 1.25 mcg/inh inhalation aerosol 2 puffs, Inhalation, Daily, # 1 each, 0 Refills, Maintenance, 02/15/21 10:37:00 EDT, Aerosol, IppknAlbljwutul-[id number], Partial fill upon patient request if the prescription is for a schedule II opioid drug., 174, cm, 02/15/21 10:00:00 EDT,... Start Date: 02/15/21 Stop Date: 03/17/21 Status: Ordered traZODone 50 mg oral tablet 100 mg, 2, tablet, By Mouth, Daily at bedtime, # 180 tablet, Refills 0, Tot. Refills 0, Maintenance, 02/15/21 10:35:00 EDT, Route to Pharmacy Electronically, [id number], Partial fill upon patient request if the prescription is... Start Date: 02/15/21 Stop Date: 05/16/21 Status: Ordered Problem List Condition Effective Dates Status Health Status Inform ant Asthma(Confirmed) Active HTN (hypertension)(Confirmed) Active Fibrodysplasia ossificans congenita(Confirmed) Active Herniated lumbar interverteb ral disc(Confirmed) Active Diagnosis Diagnosis Type Effective Dates Health Status Clinical Service Informant Uncontrolled severe persistent asthma Discharge Diagnosis 02/15/21 Herniated lumbar intervertebral disc Discharge Diagnosis 02/15/21 Eczema Discharge Diagnosis 02/15/21 Encounter for smoking cessation counseling Discharge Diagnosis 02/15/21 Insomnia Discharge Diagnosis 02/15/21 Vital Signs Most recent to oldest [Reference Range]: 1 Height 174 cm (02/15/21 10:00 AM) Weight 123.2 kg (02/15/21 10:00 AM) Oxygen Saturation [94-100 %] 95 % (02/15/21 10:00 AM) Pulse Rate [55-90 bpm] 74 bpm (02/15/21 10:00 AM) Body Mass Index [18.5-24.99] 40.69 *>HHI* (02/15/21 10:00 AM) Blood Pressure [90-138/55-84 mm Hg] 134/ 88mm Hg (02/15/21 10:00 AM) Temperature [96.8-100.4 DegF] 98.1 DegF (02/15/21 10:00 AM) Mode of Delivery (Oxygen) Room air (02/15/21 10:00 AM) Blood pressure sites Arm, left (02/15/21 10:00 AM) Temperature Route Oral (02/15/21 10:00 AM) Weight Obtained Via Standing scale (02/15/21 10:00 AM) Social History Social History Type Response Smoking Status 5-9 cigarettes (betw eecarlos 1/4 to 1/2 pack)/day in last 30 days; Other: 4 / day now; entered on: 02/15/21 Sex
--- OUTSIDE RECORDS SUMMARY | 2023-03-30 13:57 | XMS_ITS | Continuity of Care Document ---
Author Name Unknown Organization [facility] Address [address] [place] [address]- Care Team Providers Care Clinical Services Specialist Name Role Phone Polly Vuong MD, V Primary Care Physician Encounter [facility] Date(s): 11/14/22 - 02/19/23 [facility] [address] [place], [place] [address] Attending Physician: Polly Vuong MD, V Allergies, Adverse Reactions, Alerts Substance Reaction Severity Status codeine Active aspirin Active TraMADol Hydrochloride Activ e Haldol Active PROzac Active Immunizations Given and Recorded Vaccine Date Status Refusal Reason [id number] bivalent booster vax 06/21/22 Recorded tetanus/diphtheria/pertussis, acel(Tdap) 1 05/14/21 Given SARS-CoV-2 (COVID-19) Ad26 vaccine 2 02/15/21 Give n Influenza Virus Vaccine (oldterm) 06/11/20 Recorde d 1Result Comment: [facility] [id number] 2Result Comment: [facility] 76939-831-82 Medications duloxetine 30 mg oral enteric coated capsule 1 capsule = 30 mg, By Mouth, 2 times a day, # 60 capsule, 1 Refills, Maintenance, 11/08/22 11:26:00EDT, EC Capsule, [facility], Partial fill upon patient request if [...] Care Team Personnel Name: Mahendra Maria Position: [facility] RN Supv Member Role: Primary Care Nurse Name: Jeni Solorio RN Position: S RN Member Role: Primary Care Nurse Name: Rebekah Delatorre RN Position: S RN Member Role: Primary Care Nurse Name: Polly Vuong MD, V Position: [facility] Physician - Primary Care Member Role: PCP Address: Address: [address] [place] [id number] Name: Sandi Hightower RN Position: [facility] RN Member Role: Primary Care Nurse Name: Angelita Almeida RN Position: [facility] RN Member Role: Primary Care Nurse Care Team Related Persons Name: KEY DEWEY Name: AIDA DEWEY Address: [place] [address] Name: CARLIN ORTEGA
--- OUTSIDE RECORDS SUMMARY | 2023-03-30 13:57 | XMS_ITS | Continuity of Care Document ---
Author Name Unknown Organization [facility] Address [address] [place] [address]- Care Team Providers Care Pulley Man Name Role Phone Not on Staff, PCP Primary Care Physician Unavail able Encounter [facility] Date(s): 04/11/22 - 04/12/[address] [phone] Discharge Disposition: A-D/C Walkout Attending Physician: Not on Staff, Attending MD Admitting Physician: Not on Staff, Admitting MD Referring Physician: Not on Staff, Referring MD Allergies, Adverse Reactions, Alerts Substance Reaction Severity Status codeine Active aspirin Active Haldol Active TraMADol Hydrochloride Activ e NSAIDs Active PROzac Active Immunizations Given and Recorded Vaccine Date Status Refusal Reason tetanus/diphtheria/pertussis, acel(Tdap) 1 05/14/21 Given SARS-CoV-2 (COVID-19) Ad26 vaccine 2 02/15/21 Give n Influenza Virus Vaccine (oldterm) 06/11/20 Recorde d 1Result Comment: [facility] [id number] 2Result Comment: [facility] 59012-558-82 Medications amLODIPine 10 mg oral tablet 1 [...] 01/27/22 8:24:00 EDT, Route to Pharmacy Electronically, [facility], Partial fill upon patient request if [...] 0 Refills, Maintenance, 01/27/22 8:38:00 EDT, Patch, [facility], Partial fill upon patient request if the prescription is for a schedule II opioid drug., 1 patch Topically Daily, 175, cm, 01/26/22 21:23... Start Date: 01/27/22 Status: Ordered [id number] oral powder for reconstitution TAKE 1 PACKET BY MOUTH DAILY; MIX IN WATER Start Date: 01/13/22 Status: Ordered prazosin 1 mg oral capsule 1 mg, 1, capsule, By Mouth, Daily at bedtime, # 30 capsule, Refills 0, Tot. Refills 0, Maintenance,01/27/22 8:38:00 EDT, Route to Pharmacy Electronically, [facility], Partial fill upon patient request if [...] 0 Refills, Maintenance, 01/27/22 8:30:00 EDT, Tablet, [facility], Partial... Start Date: 01/27/22 Stop Date: [...] 01/27/22 8:39:00 EDT, Route to Pharmacy Electronically, [facility], Partial fill upon patient request if the... Start Date: 01/27/22 Stop Date: 02/26/22 Status: Ordered topiramate 50 mg oral tablet TAKE 1 TABLET BY MOUTH EVERY DAY Start Date: 01/13/22 Status: Ordered zolpidem 5 mg oral tablet 1 tablet = 5 mg, By Mouth, Daily at bedtime, # 30 tablet, 0 Refills, Maintenance, 01/27/22 8:39:00 EDT, Tablet, [facility], Partial fill upon patient request if the prescription is for a schedule II opioid drug., 175, cm, 01/26/22 21:23:00 E... Start Date: 01/27/22 Stop Date: 02/26/22 Status: Ordered Problem List Condition Effective Dates Status Health Status Inform ant Asthma(Confirmed) Active HTN (hypertension)(Confirmed) Active Fibrodysplasia ossificans congenita(Confirmed) Active Herniated lumbar interverteb ral disc(Confirmed) Active Severe obesity(Confirmed) Active Vital Signs Most recent to oldest [Reference Range]: 1 2 3 Oxygen Saturation [94-100 %] 100 % (04/11/22 8:25 PM) 99 % (04/11/22 6:14 PM) 99 % (04/11/22 3:13 PM) Pulse Rate [55-90 bpm] 76 bpm (04/11/22 8:25 PM) 73 bpm (04/11/22 6:14 PM) 72 bpm (04/11/22 3:13 PM) Blood Pressure [90-138/55-84 mm Hg] 161/112mm Hg *H* (04/11/22 8:25 PM) 175/108mm Hg *H* (04/11/22 6:14 PM) 148/95mm Hg *H* (04/11/22 3:13 PM) Respiratory Rate [16-30 br/min] 18 br/min (04/11/22 3:13 PM) 18 br/min (04/11/22 1:10 PM) Temperature [96.8-100.4 DegF] 98.6 DegF (04/11/22 8:25 PM) 98.5 DegF (04/11/22 6:14 PM) 98.2 DegF (04/11/22 3:13 PM) Mode of Delivery (Oxygen) Room air (04/11/22 8:25 PM) Room air (04/11/22 6:14 PM) Room air (04/11/22 3:13 PM) Blood pressure sites Arm, right (04/11/22 8:25 PM) Arm, right (04/11/22 6:14 PM) Arm, right (04/11/22 3:13 PM) Temperature Route Oral (04/11/22 8:25 PM) Oral (04/11/22 6:14 PM) Oral (04/11/22 3:13 PM) Social History Social History Type Response Smoking Status 10 or more cigarette s (1/2 pack or more)/day in last 30 days; Interested in cessation: No; Patient wants NRT during admission Yes; Other: 1/2 pack daily; entered on: 01/13/22 Sex
--- OUTSIDE RECORDS SUMMARY | 2023-03-30 13:57 | XMS_ITS | Continuity of Care Document ---
Author Name Unknown Organization [facility] Address [address] [place] [address]- Care Team Providers Care Asbestos Worker Helper Name Role Phone Not on Staff, PCP Primary Care Physician Unavail able Encounter [facility] Date(s): 11/08/22 - 12/08/22 [facility] [address] [place], [place] [address] Allergies, Adverse Reactions, Alerts Substance Reaction Severity Status codeine Active aspirin Active Haldol Active PROzac Active TraMADol Hydrochloride Activ e Immunizations Given and Recorded Vaccine Date Status Refusal Reason [id number] bivalent booster vax 06/21/22 Recorded tetanus/diphtheria/pertussis, acel(Tdap) 1 05/14/21 Given SARS-CoV-2 (COVID-19) Ad26 vaccine 2 02/15/21 Give n Influenza Virus Vaccine (oldterm) 06/11/20 Recorde d 1Result Comment: [facility] [id number] 2Result Comment: [facility] [id number] Medications duloxetine 30 mg oral enteric coated capsule 1 capsule = 30 mg, By Mouth, 2 times a day, # 60 capsule, 1 Refills, Maintenance, 11/08/22 11:26:00EDT, EC Capsule, [facility], Partial fill upon patient request if [...] Care Team Personnel Name: Mahendra Maria Position: [facility] RN Supv Member Role: Primary Care Nurse Name: Jeni Solorio RN Position: [facility] RN Member Role: Primary Care Nurse Name: Rebekah Delatorre RN Position: S RN Member Role: Primary Care Nurse Name: Sandi Hightower RN Position: [facility] RN Member Role: Primary Care Nurse Name: Angelita Almeida RN Position: [facility] RN Member Role: Primary Care Nurse Name: Not on Staff, PCP Position: [facility] Physician (General Medicine) Member Role: PCP Care Team Related Persons Name: AIDA DEWEY Address: [place] [address] Name: SHANNON CARLIN
--- OUTSIDE RECORDS SUMMARY | 2023-03-30 13:57 | XMS_ITS | Continuity of Care Document ---
Author Name Unknown Organization [facility] Address [address] [place] [address]- Care Team Providers Care Bomb Squad Commander Name Role Phone Terrie Kruger NP Primary Care Physician Encounter [facility] Date(s): 11/23/20 - 12/23/20 [facility] [address] [place] [address]- Allergies, Adverse Reactions, Alerts Substance Reaction Severity Status codeine Active aspirin Active Haldol Active NSAIDs Active PROzac Active Immunizations Given and Recorded Vaccine Date Status Refusal Reason Influenza Virus Vaccine (oldterm) 06/11/20 Recorde d Medications amLODIPine 10 mg oral tablet 1 tablet = 10 mg, By Mouth, Daily, # 90 tablet, 0 Refills, Maintenance, 11/24/20 8:12:00 EDT, [id number]-[id number], Partial fill upon patient request if the prescription is for a schedule II opioid drug., 174, cm, 11/24/20 7:51:00 EDT, H... Start Date: 11/24/20 Stop Date: 02/22/21 Status: Ordered Breo Ellipta 200 mcg-25 mcg/inh inhalation powder 1 puffs, Inhalation, Daily, # 3 each, 0 Refills, Maintenance, 11/24/20 8:10:00 EDT, [id number], Partial fill upon patient request if the prescription is for a schedule II opioid drug., 1 puffs Inhalation Daily,x90 days, 174, cm... Start Date: 11/24/20 Stop Date: 02/22/21 Status: Ordered escitalopram 10 mg oral tablet 1 tablet = 10 mg, By Mouth, Daily, # 90 tablet, 0 Refills, Maintenance, 11/24/20 8:10:00 EDT, [id number]-[id number], Partial fill upon patient request if the [...] tablet, 0 Refills, Maintenance, 11/24/20 8:11:00 EDT, [id number]-[id number], Partial fill upon patient request if the prescription is for a schedule II opioid drug., 174, cm, 11/24/20 7:51:00 EDT, H... Start Date: 11/24/20 Stop Date: 02/22/21 Status: Ordered ProAir HFA 90 mcg/inh inhalation aerosol 2 puffs, Inhalation, Every 6 hours, PRN Wheezing/Shortness of Breath, # 1 each, 0 Refills, Maintenance, 11/24/20 8:13:00 EDT, [id number], Partial fill upon patient request if the [...]
--- OUTSIDE RECORDS SUMMARY | 2023-03-30 13:57 | XMS_ITS | Continuity of Care Document ---
Author Name Unknown Organization [facility] Address [address] [place] [address]- Care Team Providers Care Museum Informatics Specialist Name Role Phone Not on Staff, PCP Primary Care Physician Unavail able Encounter [facility] Date(s): 07/30/21 - 08/06/[address] [facility] [address] [place] [address]- Attending Physician: Saskia ANTHONY, Terrie Allergies, Adverse Reactions, Alerts Substance Reaction Severity Status codeine Active aspirin Active Haldol Active NSAIDs Active PROzac Active TraMADol Hydrochloride Activ e Immunizations Given and Recorded Vaccine Date Status Refusal Reason tetanus/diphtheria/pertussis, acel(Tdap) 1 05/14/21 Given SARS-CoV-2 (COVID-19) Ad26 vaccine 2 02/15/21 Give n Influenza Virus Vaccine (oldterm) 06/11/20 Recorde d 1Result Comment: [facility] [id number] 2Result Comment: [facility] 51840-636-96 Medications Albuterol (Eqv-ProAir HFA) 90 mcg/inh inhalation [...] Acute 04/29/22 13:01:00 EDT, 04/28/21 12:59:00 EDT, [place], [facility]-[id number], Partial fill upon patient reque... Start Date: 04/28/21 Stop Date: 04/29/22 Status: Ordered benztropine 1 mg oral tablet 1 mg, 1, tablet, By Mouth, Daily at bedtime, # 30 tablet, Refills 0, Tot. Refills 0, Maintenance, 04/28/21 12:55:00 EDT, Route to Pharmacy Electronically, [facility]-[id number], Partial fill upon patient request if the prescription is for... Start Date: 04/28/21 Status: Ordered benztropine 1 mg oral tablet 1 mg, 1, tablet, By Mouth, Daily at bedtime, # 7 tablet, Refills 4, Tot. Refills 4, Maintenance, 04/09/21 11:42:00 EDT, Route to Pharmacy Electronically, [id number], Partial fill upon patient request if [...] 05/17/21 9:33:00 EDT, Route to Pharmacy Electronically, [facility], Partial fill upon patient request if [...] 0 Refills, Maintenance, 04/09/21 11:42:00 EDT, Patch, [facility], Partial fill upon patient request if [...] 13:34:00 EST, 07/09/21 13:34:00 EST, ER Tablet, [facility], Partial fill upon patient request if [...] tablet, Refills 2, Route to Pharmacy Electronically, [facility], 174.4, cm, 07/30/21 13:48:00 EST, Height, [...] Mouth, Daily, # 30 tablet, 5 Refills, [facility], 174.4, cm, 07/30/21 13:48:00 EST, Height, 118.9, kg, 04/03/21 4:55:00 EDT, Dry Weight Start Date: 07/30/21 Status: Ordered Problem List Condition Effective Dates Status Health Status Inform ant Asthma(Confirmed) Active HTN (hypertension)(Confirmed) Active Fibrodysplasia ossificans congenita(Confirmed) Active Herniated lumbar interverteb ral disc(Confirmed) Active Vital Signs Most recent to oldest [Reference Range]: 1 Height 174.4 cm (07/30/21 1:48 PM) Weight Obtained Via Patient/family state d (07/30/21 1:48 PM) Social History Social History Type Response Smoking Status 5-9 cigarettes (betw een 1/4 to 1/2 pack)/day in last 30 days; Other: 4 / day now; entered on: 02/15/21 Sex
--- OUTSIDE RECORDS SUMMARY | 2023-03-30 13:57 | XMS_ITS | Continuity of Care Document ---
Author Name Unknown Organization [facility] Address [address] [place] [address]- Care Team Providers Care Rock Picker Name Role Phone Terrie Kruger NP Primary Care Physician Encounter [facility] R [id number] Date(s): 11/20/20 - 11/27/20 [facility] [address] [place] [address]- Encounter Diagnosis Low back pain(Discharge Diagnosis) - 11/20/20 HTN (hypertension)(Discharge Diagnosis) - 11/20/20 PTSD (post-traumatic stress disorder)(Discharge Diagnosis) - 11/20/20 Attending Physician: Terrie Kruger NP Allergies, Adverse Reactions, Alerts Substance Reaction Severity Status codeine Active aspirin Active Haldol Active NSAIDs Active PROzac Active Immunizations Given and Recorded Vaccine Date Status Refusal Reason Influenza Virus Vaccine (oldterm) 06/11/20 Recorde d Medications amLODIPine 10 mg oral tablet 1 tablet = 10 mg, By Mouth, Daily, # 90 tablet, 0 Refills, Maintenance, 11/24/20 8:12:00 EDT, [id number]-[id number], Partial fill upon patient request if the prescription is for a schedule II opioid drug., 174, cm, 11/24/20 7:51:00 EDT, H... Start Date: 11/24/20 Stop Date: 02/22/21 Status: Ordered Breo Ellipta 200 mcg-25 mcg/inh inhalation powder 1 puffs, Inhalation, Daily, # 3 each, 0 Refills, Maintenance, 11/24/20 8:10:00 EDT, [id number], Partial fill upon patient request if the [...] 11/24/20 8:16:00 EDT, Route to Pharmacy Electronically, [facility], Partial rosa maria... Start Date: 11/24/20 Stop Date: 12/08/20 Status: Ordered escitalopram 10 mg oral tablet 1 tablet = 10 mg, By Mouth, Daily, # 90 tablet, 0 Refills, Maintenance, 11/24/20 8:10:00 EDT, [id number]-[id number], Partial fill upon patient request if the [...] tablet, 0 Refills, Maintenance, 11/24/20 8:11:00 EDT, DqaeqLxwoblymxx-[id number], Partial fill upon patient request if the prescription is for a schedule II opioid drug., 174, cm, 11/24/20 7:51:00 EDT, H... Start Date: 11/24/20 Stop Date: 02/22/21 Status: Ordered ProAir HFA 90 mcg/inh inhalation aerosol 2 puffs, Inhalation, Every 6 hours, PRN Wheezing/Shortness of Breath, # 1 each, 0 Refills, Maintenance, 11/24/20 8:13:00 EDT, [facility], Partial fill upon patient request if the [...] 8:15:00 EDT, 11/24/20 8:15:00 EDT, ER Tablet, [facility], Partial fill upon patient request if the prescription... Start Date: 11/24/20 Stop Date: 12/08/20 Status: Ordered Problem List Condition Effective Dates Status Health Status Inform ant Asthma(Confirmed) Active HTN (hypertension)(Confirmed) Active Fibrodysplasia ossificans congenita(Confirmed) Active Herniated lumbar interverteb ral disc(Confirmed) Active Diagnosis Diagnosis Type Effective Dates Health Status Cl inical Service Informant Low back pain Discharge Diagnosis 11/20/20 HTN (hypertension) Discharge Diagnosis 11/20/20 PTSD (post-traumatic stress disorder) Discharge Diagnosis 11/20/20 Vital Signs Most recent to oldest [Reference Range]: 1 Weight 119 kg (11/20/20 11:15 AM) Weight Obtained Via Patient/family state d (11/20/20 11:15 AM) Social History Social History Type Response Smoking Status 5-9 cigarettes (betw een 1/4 to 1/2 pack)/day in last 30 days; Other: 1/2 PPD started at 14; entered on: 06/15/20 Sex
--- OUTSIDE RECORDS SUMMARY | 2023-03-30 13:57 | XMS_ITS | Continuity of Care Document ---
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 Role Phone Yevgeniy ÁLVAREZ, Polly Kapoor Primary Care Physician [phone] Encounter [facility] Date(s): 01/19/23 - 02/18/23 [facility] [address] [place], [place] [address] Allergies, Adverse Reactions, Alerts Substance Reaction Severity Status codeine Active aspirin Active Haldol Active PROzac Active TraMADol Hydrochloride Activ e Immunizations Given and Recorded Vaccine Date Status Refusal Reason [id number] bivalent booster vax 06/21/22 Recorded tetanus/diphtheria/pertussis, acel(Tdap) 1 05/14/21 Given SARS-CoV-2 (COVID-19) Ad26 vaccine 2 02/15/21 Give n Influenza Virus Vaccine (oldterm) 06/11/20 Recorde d 1Result Comment: [facility] [id number] 2Result Comment: [facility] 28602-977-89 Medications duloxetine 30 mg oral enteric coated capsule 1 capsule = 30 mg, By Mouth, 2 times a day, # 60 capsule, 1 Refills, Maintenance, 11/08/22 11:26:00EDT, EC Capsule, [facility], Partial fill upon patient request if [...] Member Role: Primary Care Nurse Name: Polly Voung MD, V Position: [facility] Physician - Primary Care Member Role: PCP Address: Address: [address] [place] [id number] Name: Sandi Hightower RN Position: S RN Member Role: Primary Care Nurse Name: Angelita Almeida RN Position: S RN Member Role: Primary Care Nurse Care Team Related Persons Name: KEY DEWEY Name: AIDA DEWEY Address: [place] [address] Name: SHANNON, CARLIN
--- OUTSIDE RECORDS SUMMARY | 2023-03-30 13:57 | XMS_ITS | Continuity of Care Document ---
Author Name Unknown Organization [facility] Address [address] [place] [address]- Care Team Providers Care Charge Master Analyst Name Role Phone Terrie Kruger NP Primary Care Physician Encounter [facility] [place] Date(s): 12/23/20 - 01/22/21 [facility] [address] [place] [address]- Allergies, Adverse Reactions, Alerts Substance Reaction Severity Status codeine Active aspirin Active Haldol Active NSAIDs Active PROzac Active Immunizations Given and Recorded Vaccine Date Status Refusal Reason Influenza Virus Vaccine (oldterm) 06/11/20 Recorde d Medications amLODIPine 10 mg oral tablet 1 tablet = 10 mg, By Mouth, Daily, # 90 tablet, 0 Refills, Maintenance, 11/24/20 8:12:00 EDT, [id number], Partial fill upon patient request if the prescription is for a schedule II opioid drug., 174, cm, 11/24/20 7:51:00 EDT, H... Start Date: 11/24/20 Stop Date: 02/22/21 Status: Ordered Breo Ellipta 200 mcg-25 mcg/inh inhalation powder 1 puffs, Inhalation, Daily, # 3 each, 0 Refills, Maintenance, 11/24/20 8:10:00 EDT, [id number], Partial fill upon patient request if the prescription is for a schedule II opioid drug., 1 puffs Inhalation Daily,x90 days, 174, cm... Start Date: 11/24/20 Stop Date: 02/22/21 Status: Ordered escitalopram 10 mg oral tablet 1 tablet = 10 mg, By Mouth, Daily, # 90 tablet, 0 Refills, Maintenance, 11/24/20 8:10:00 EDT, [id number], Partial fill upon patient request if the [...] tablet, 0 Refills, Maintenance, 11/24/20 8:11:00 EDT, [id number], Partial fill upon patient request if the prescription is for a schedule II opioid drug., 174, cm, 11/24/20 7:51:00 EDT, H... Start Date: 11/24/20 Stop Date: 02/22/21 Status: Ordered ProAir HFA 90 mcg/inh inhalation aerosol 2 puffs, Inhalation, Every 6 hours, PRN Wheezing/Shortness of Breath, # 1 each, 0 Refills, Maintenance, 11/24/20 8:13:00 EDT, [id number], Partial fill upon patient request [...]
--- OUTSIDE RECORDS SUMMARY | 2023-03-30 13:57 | XMS_ITS | Continuity of Care Document ---
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 Name Role Phone Yevgeniy ÁLVAREZ, Polly Kapoor Primary Care Physician Encounter [facility] Date(s): 02/27/23 - 03/06/23 [facility] [address] [place], [place] [address] Encounter Diagnosis Epigastric abdominal pain(Discharge Diagnosis) - 02/27/23 Upper GI bleed(Discharge Diagnosis) - 02/27/23 Low back pain(Discharge Diagnosis) - 02/27/23 Attending Physician: Beto Wallace MD Referring Physician: Yevgeniy ÁLVAREZ, Polly Kapoor Allergies, Adverse Reactions, Alerts Substance Reaction Severity Status codeine Active aspirin Active Haldol Active PROzac Active TraMADol Hydrochloride Activ e Immunizations Given and Recorded Vaccine Date Status Refusal Reason [id number] bivalent booster vax 06/21/22 Recorded tetanus/diphtheria/pertussis, acel(Tdap) 1 05/14/21 Given SARS-CoV-2 (COVID-19) Ad26 vaccine 2 02/15/21 Give n Influenza Virus Vaccine (oldterm) 06/11/20 Recorde d 1Result Comment: [facility] [id number] 2Result Comment: [facility] [id number] Medications amLODIPine 5 mg oral tablet 0 [...] 1 Refills, Maintenance, 11/08/22 11:26:00EDT, EC Capsule, [facility], Partial fill upon patient request if [...] 1 Refills, Maintenance, 02/27/23 15:17:00 EDT, ECCcristhian, [facility], Partial fill upon patient request if [...] Effective Dates Health Status Clinical Service Informant Epigastric abdominal pain Discharge Diagnosis 02/27/23 Upper GI bleed Discharge Diagnosis 02/27/23 Low back pain Discharge Diagnosis 02/27/23 Vital Signs Most recent to oldest [Reference Range]: 1 Height 175 cm (02/27/23 2:56 PM) Weight 123.2 kg (02/27/23 2:56 PM) Oxygen Saturation [94-100 %] 100 % (02/27/23 2:56 PM) Pulse Rate [55-90 bpm] 89 bpm (02/27/23 2:56 PM) Body Mass Index [18.5-24.99 kg/m2] 40.23 kg/m2 *>HHI* (02/27/23 2:56 PM) Blood Pressure [90-138/55-84 mm Hg] 126/ 82mm Hg (02/27/23 2:56 PM) Temperature [96.8-100.4 DegF] 97.8 DegF (02/27/23 2:56 PM) Mode of Delivery (Oxygen) Room air (02/27/23 2:56 PM) Temperature Route Oral (02/27/23 2:56 PM) Weight Obtained Via Standing scale (02/27/23 2:56 PM) Social History Social History Type Response Smoking Status 10 or more cigarette s (1/2 pack or more)/day in last 30 days; Interested in cessation: No; Patient wants NRT during admission Yes; Other: 1/2 pack daily; entered on: 01/13/22 Sex Note * Stephanie Costello: PERFORM, SIGN, VERIFY Event Display: Patient Education/Instruction Authored Date: [id number] [facility] Clinical Summary Name PEGGY DEWEY Age 47 Years 1975 PCP Polly Vuong MD, [id number] Visit Date 02/27/2023 14:33:00 Additional Instructions: Scheduled Appointments?? Future Appointments ?*[facility] ?[address]??[place],??[place],??[address] ?Phone:??--?Fax:??-- ?Appt. Date:??03/17/2023?2:00 PM ?Scheduled Provider:??Polly Vuong MD, V Follow-Up Instructions ?? Diagnosis Medications: Please continue your medications until treatment is completed or stopped by your provider. Discuss any questions related to medications with your provider. New Medications [facility], [address] [place] [address] [phone], [phone] Omeprazole (omeprazole 40 mg oral enteric coated capsule) 1 capsule Oral Daily. Refills: 1. Next Dose: Medications to Continue with No Changes These medications were not printed or sent to your pharmacy Acetaminophen (Tylenol 8 Hour 650 mg oral tablet, extended release) 2 tab(s) Oral every 8 hours. Next Dose: Amlodipine (amLODIPine 5 mg oral tablet) Next Dose: Benztropine (benztropine 0.5 mg oral tablet) Next Dose: Clonazepam (clonazePAM 1 mg oral tablet) Next Dose: Divalproex Sodium (divalproex sodium 500 mg oral tablet, extended release) Next Dose: Docusate (docusate sodium 100 mg oral capsule) Next Dose: Duloxetine (duloxetine 30 mg oral enteric coated capsule) 1 capsule Oral twice a day. Refills: 1. Next Dose: Duloxetine (duloxetine 60 mg oral enteric coated capsule) Next Dose: fluticasone-vilanterol (Breo Ellipta 100 mcg-25 mcg/inh inhalation powder) Next Dose: HydrOXYzine (hydrOXYzine pamoate 50 mg oral capsule) Next Dose: Mirtazapine (mirtazapine 30 mg oral tablet) Next Dose: Miscellaneous Rx (VITAMIN D3 CAP 1000UNIT) Next Dose: Miscellaneous Rx (VITAMIN D3 1000UNIT Capsules) Next Dose: Montelukast (montelukast 10 mg oral tablet) Next Dose: Naltrexone (naltrexone 50 mg oral tablet) Next Dose: Olanzapine (olanzapine 5 mg oral tablet) Next Dose: Prazosin (prazosin 2 mg oral capsule) Next Dose: Propranolol (propranolol 10 mg oral tablet) Next Dose: Quetiapine (QUEtiapine 50 mg oral tablet) Next Dose: Zolpidem (zolpidem 5 mg oral tablet) 1 tab(s) Oral Daily at Bedtime as needed as needed for insomnia. Next Dose: Allergy Info:?? TraMADol Hydrochloride; PROzac; Haldol; aspirin; codeine Medications Given This Visit Future Orders ?Comprehensive Metabolic Panel? Order Date:02/27/23?- Complete on or after?02/27/23 ?CBC? Order Date:02/27/23?- Complete on or after?02/27/23 ?Lipase? Order Date:02/27/23?- Complete on or after?02/27/23 ?Fecal Occult Blood Immunochemical? Order Date:02/27/23?- Complete on or after?02/27/23 ?H. Pylori Urea Breath Test? Order Date:02/27/23?- Complete on or after?02/27/23 Vital Signs Height 175 cm Weight 123.2 kg BMI 40.23 kg/m2 Blood Pressure 126 mm Hg/82 mm Hg Temperature 97.8 DegF Pulse Rate 89 bpm Respiratory Rate 02 Sat Mode of Delivery 100 %/Room air You can now view a summary of your hospital visit from the comfort of your home through a free online portal called [facility]. [email or web address] is a website that allows you to securely view your medical information including discharge summary, medications and follow-up visits. ??You can alsosend a secure electronic message to your doctor???s office to request appointments, renew medications or just ask a question. You can enroll at [email or web address] or register during your next office visit. Disclaimer:?? The information provided is of a general nature and is intended to be used in conjunction with the recommendations and advice of your health care practitioner. ??Every effort has been made to ensure that the information provided is accurate and complete at the time it is provided to you however, as your needs change, or, as new ??information becomes available, different or additional instructions may be required. If you have questions, please consult with your primary care provider or pharmacist, as appropriate. ??This information is not intended to serve as substitution for assessment and evaluation by a qualified health care provider. If you do not have a primary care provider, you may find a [facility] provider by calling [facility] [employer] at [phone]. For information about the plan of care including goals and instructions for your diagnosis, please see the patient education orders section of this document. Patient Education Materials?? The content of this educational material or handout may have been modified, supplemented, or adapted from its original content and format to support your individualized medical care. Patient Care team information Care Team Personnel Name: Mahendra Maria Position: [facility] RN Supv Member Role: Primary Care Nurse Name: Jeni Solorio RN Position: S RN Member Role: Primary Care Nurse Name: Rebekah Delatorre RN Position: S RN Member Role: Primary Care Nurse Name: Polly Vuong MD, V Position: [facility] Physician - Primary Care Member Role: PCP Address: Address: [address] [place] [id number] Name: Sandi Hightower RN Position: S RN Member Role: Primary Care Nurse Name: Angelita Almeida RN Position: S RN Member Role: Primary Care Nurse Care Team Related Persons Name: KEY DEWEY Name: AIDA DEWEY Address: [place] [address] Name: NO, CARLIN
--- OUTSIDE RECORDS SUMMARY | 2023-03-30 13:57 | XMS_ITS | Continuity of Care Document ---
Author Name Unknown Organization [facility] ter Address [address] [place] [address]- Care Team Providers Care Camp Nurse Name Role Phone Not on Staff, PCP Primary Care Physician Unavail able Encounter [facility] Date(s): 02/02/22 - 02/02/[address] [id number]- Discharge Disposition: A-D/C Walkout Attending Physician: Not [...] 1Result Comment: [facility] [id number] 2Result Comment: [facility] [id number] Medications Albuterol (Eqv-ProAir HFA) 90 mcg/inh inhalation aerosol INHALE 1 PUFF INHALATION EVERY 4 HOURS NEEDED DYSPNEA, WHEEZING Start Date: 01/13/22 Status: Ordered amLODIPine 10 mg oral tablet [...] 01/27/22 8:24:00 EDT, Route to Pharmacy Electronically, [facility], Partial fill upon patient request if the prescription is for a schedule II o... Start Date: 01/27/22 Stop Date: 02/26/22 Status: Ordered cholecalciferol 1000 intl units oral tablet TAKE 1 TABLET BY MOUTH EVERY DAY Start Date: 01/13/22 Status: Ordered clonazePAM 1 mg oral tablet 1 tablet = 1 mg, By Mouth, 2 times a day, PRN Anxiety, # 60 tablet, 0 Refills, Maintenance, 01/27/22 8:34:00 EDT, Tablet, [facility], Partial fill upon patient request if the prescription is for a schedule II opioid drug., cher Perez, 01/26/22... Start Date: 01/27/22 Stop Date: 02/26/22 Status: Ordered dicyclomine 10 mg oral capsule TAKE 2 CAPSULES BY MOUTH TWICE A DAY NEEDED CRAMPS Start Date: 01/13/22 Status: Ordered DULoxetine 40 mg oral delayed release capsule 1 capsule = 40 mg, By Mouth, Daily in AM, do not crush or chew, # 30 capsule, 0 Refills, Maintenance, 01/27/22 8:35:00 EDT, CR Capsule, [facility], Partial fill upon patient request if the prescription is for a schedule II opioid drug., 175,... Start Date: 01/27/22 Stop Date: 02/26/22 Status: Ordered fenofibrate 43 mg oral capsule 1 capsule = 43 mg, By Mouth, Daily, # 30 capsule, 0 Refills, Maintenance, 01/27/22 8:36:00 EDT, Capsule, [facility], Partial fill upon patient request if the prescription is for a schedule II opioid drug., cher Perez, 01/26/22 21:23:00 EDT, Hei... Start Date: 01/27/22 Stop Date: 02/26/22 Status: Ordered hydrOXYzine pamoate 50 mg oral capsule = 50 mg, By Mouth, 2 times a day, PRN Anxiety, take 1 capsule (=50mg), up to 2 times a day, as needed for anxiety, # 60 capsule, 0 Refills, Maintenance, 01/27/22 8:36:00 EDT, Capsule, [facility], Partial fill upon patient request if the pres... Start Date: 01/27/22 Stop Date: 02/26/22 Status: Ordered lidocaine 5% topical ointment 1 application, Topically, 3 times a day, # 50 Gm, 0 Refills, Maintenance, 11/19/21 17:24:00 EDT, Ointment, [facility], Partial fill upon patient request if [...] drug. Start Date: 01/13/22 Status: Ordered nicotine 2 mg oral transmucosal gum = 2 mg, Chew, Every hour, PRN Other, Nicotine Cravings, # 160 each, 0 Refills, Maintenance, 01/27/22 8:36:00 EDT, Gum, [facility], Partial fill upon patient request if the prescription is for a schedule II opioid drug., 175, cm, 01/26/22 21:... Start Date: 01/27/22 Status: Ordered nicotine 21 mg/24 hr transdermal film, extended release 1 patch, Topically, Daily, # 30 patch, 0 Refills, Maintenance, 01/27/22 8:38:00 EDT, Patch, [facility], Partial fill upon patient request if the prescription is for a schedule II opioid drug., 1 patch Topically Daily, 175, cm, 01/26/22 21:23... Start Date: 01/27/22 Status: Ordered [id number] oral powder for reconstitution TAKE 1 PACKET BY MOUTH DAILY; MIX IN WATER Start Date: 01/13/22 Status: Ordered prazosin 1 mg oral capsule 1 mg, 1, capsule, By Mouth, Daily at bedtime, # 30 capsule, Refills 0, Tot. Refills 0, Maintenance,01/27/22 8:38:00 EDT, Route to Pharmacy Electronically, [facility], Partial fill upon patient request if [...] 0 Refills, Maintenance, 01/27/22 8:30:00 EDT, Tablet, [facility], Partial... Start Date: 01/27/22 Stop Date: [...] 01/27/22 Stop Date: 02/26/22 Status: Ordered SEROquel 300 mg oral tablet 1 tablet = 300 mg, By Mouth, Daily at bedtime, # 30 tablet, 0 Refills, Maintenance, 01/27/22 8:34:00 EDT, Tablet, [facility], Partial fill upon patient request if the prescription is for a schedule II opioid drug., 175, cm, 01/26/22 21:23:00... Start Date: 01/27/22 Stop Date: 02/26/22 Status: Ordered simethicone 80 mg oral tablet, chewable 160 mg, 2, tablet, Chew, 3 times a day, take 2 tablets (160mg), 3 times a day, # 180 tablet, Refills 0, Tot. Refills 0, Maintenance, 01/27/22 8:39:00 EDT, Route to Pharmacy Electronically, [facility], Partial fill upon patient request if the... Start Date: 01/27/22 Stop Date: 02/26/22 Status: Ordered topiramate 50 mg oral tablet TAKE 1 TABLET BY MOUTH EVERY DAY Start Date: 01/13/22 Status: Ordered zolpidem 5 mg oral tablet 1 tablet = 5 mg, By Mouth, Daily at bedtime, # 30 tablet, 0 Refills, Maintenance, 01/27/22 8:39:00 EDT, Tablet, [facility], Partial fill upon patient request if [...] Most recent to oldest [Reference Range]: 1 Oxygen Saturation [94-100 %] 96 % (02/02/22 1:35 AM) Pulse Rate [55-90 bpm] 90 bpm (02/02/22 1:35 AM) Blood Pressure [90-138/55-84 mm Hg] 157/ 98mm Hg *H* (02/02/22 1:35 AM) Respiratory Rate [16-30 br/min] 18 br/mi n (02/02/22 1:35 AM) Temperature [96.8-100.4 DegF] 97.7 DegF (02/02/22 1:35 AM) Mode of Delivery (Oxygen) Room air (02/02/22 1:35 AM) Blood pressure sites Arm, right (02/02/22 1:35 AM) Temperature Route Oral (02/02/22 1:35 AM) Social History Social History Type Response Smoking Status 10 or more cigarette s (1/2 pack or more)/day in last 30 days; Interested in cessation: No; Patient wants NRT during admission Yes; Other: 1/2 pack daily; entered on: 01/13/22 Sex
--- OUTSIDE RECORDS SUMMARY | 2023-03-30 13:57 | XMS_ITS | Continuity of Care Document ---
Author Name Unknown Organization [facility] Address [address] [address]- Care Team Providers Care Information Systems Professor Name Role Phone Terrie Kruger NP Primary Care Physician [phone] Encounter [facility] Date(s): 07/20/20 - 08/19/20 [facility] [address] [id number] Attending Physician: AdmtrKimberly Admitting Physician: Admtr, [id number] Referring Physician: Admtr, Ar8 Allergies, Adverse Reactions, [...] 0 Refills, Maintenance, 06/24/20 16:06:00 EDT, [facility], kg, 05/31/20 10:53:00 EDT, Dry Weight Start Date: 06/24/20 Stop Date: 07/08/20 Status: Ordered Lexapro 10 mg oral tablet 0.5 tablet = 5 mg, By Mouth, Daily, # 7 tablet, 0 Refills, Maintenance, 06/24/20 16:05:00 EDT, Tablet, [facility]-, 131.2, kg, 05/31/20 10:53:00 EDT, Dry [...] 11 Refills, Maintenance, 07/20/20 8:44:00 EST, Inhaler, [facility]-, 2 puffs Inhalation Every 4hours,PRN:Wheezing/Shortness of Breath, [...]
--- OUTSIDE RECORDS SUMMARY | 2023-03-30 13:57 | XMS_ITS | Continuity of Care Document ---
Author Name Unknown Organization [facility] Address [address] [place] [address]- Care Team Providers Care Slot Host Name Role Phone Not on Staff, PCP Primary Care Physician Unavail able Encounter [facility] Date(s): 05/28/20 - 06/04/20 [facility] [address] [place] [address] [facility] Attending Physician: Dave ANTHONY, Leticia Johnson Allergies, Adverse Reactions, Alerts Substance Reaction Severity Status codeine Active aspirin Active Haldol Active NSAIDs Active PROzac Active Medications Tylenol 325 mg oral capsule 2 capsule = 650 mg, By Mouth, 3 times a day, PRN as needed for pain, # 90 capsule, 0 Refills, Maintenance, 05/31/20 10:09:00 EDT, Capsule, [facility] #[id number], 131.2, kg, 05/31/20 8:59:00 EDT, Dry Weight Start Date: 05/31/20 Status: Ordered
--- OUTSIDE RECORDS SUMMARY | 2023-03-30 13:57 | XMS_ITS | Continuity of Care Document ---
Author Name Unknown Organization [facility] Adult Address [address] [place] [address]- Care Team Providers Care Electrical Inspector Name Role Phone Terrie Kruger NP Primary Care Physician Encounter [facility] R [id number] Date(s): 05/14/21 - 05/21/21 [facility] [address] [place] [address]- Encounter Diagnosis Abnormal physical evaluation(Discharge Diagnosis) - 05/14/21 Abnormality of tongue(Discharge Diagnosis) - 05/14/21 Asthma(Discharge Diagnosis) - 05/14/21 HTN (hypertension)(Discharge Diagnosis) - 05/14/21 Right hip pain(Discharge Diagnosis) - 05/14/21 Vision changes(Discharge Diagnosis) - 05/14/21 Tobacco abuse(Discharge Diagnosis) - 05/14/21 Attending Physician: Terrie Kruger NP Allergies, Adverse Reactions, Alerts Substance Reaction Severity Status codeine Active aspirin Active NSAIDs Active PROzac Active TraMADol Hydrochloride Activ e Haldol Active Immunizations Given and Recorded Vaccine Date Status Refusal Reason tetanus/diphtheria/pertussis, acel(Tdap) 1 05/14/21 Given SARS-CoV-2 (COVID-19) Ad26 vaccine 2 02/15/21 Give n Influenza Virus Vaccine (oldterm) 06/11/20 Recorde d 1Result Comment: [facility] [id number] 2Result Comment: [facility] [id number] Medications Albuterol (Eqv-ProAir HFA) 90 mcg/inh inhalation [...] Acute 04/29/22 13:01:00 EDT, 04/28/21 12:59:00 EDT, [place], [facility], Partial fill upon patient reque... Start Date: 04/28/21 Stop Date: 04/29/22 Status: Ordered benztropine 1 mg oral tablet 1 mg, 1, tablet, By Mouth, Daily at bedtime, # 30 tablet, Refills 0, Tot. Refills 0, Maintenance, 04/28/21 12:55:00 EDT, Route to Pharmacy Electronically, [id number], Partial fill upon patient request if the prescription is for... Start Date: 04/28/21 Status: Ordered benztropine 1 mg oral tablet 1 mg, 1, tablet, By Mouth, Daily at bedtime, # 7 tablet, Refills 4, Tot. Refills 4, Maintenance, 04/09/21 11:42:00 EDT, Route to Pharmacy Electronically, [id number], Partial fill upon patient request if [...] 05/17/21 9:33:00 EDT, Route to Pharmacy Electronically, [facility], Partial fill upon patient request if [...] 0 Refills, Maintenance, 04/09/21 11:42:00 EDT, [place], [id number], Partial fill upon patient request if [...] Maintenance,04/28/21 12:54:00 EDT, Route to Pharmacy Electronically, [id number], Partial fill upon patient request if the prescription is f... Start Date: 04/28/21 Status: Ordered SEROquel 100 mg oral tablet 100 mg, 1, tablet, By Mouth, Daily at bedtime, # 7 tablet, Refills 4, Tot. Refills 4, Maintenance, 04/09/21 11:42:00 EDT, Route to Pharmacy Electronically, [id number], Partialfill upon patient request if the prescription is fo... Start Date: 04/09/21 Stop Date: 05/14/21 Status: Ordered SEROquel 25 mg oral tablet 50 mg, 2, tablet, By Mouth, 2 times a day, # 120 tablet, Refills 0, Tot. Refills 0, Maintenance, 04/28/21 12:55:00 EDT, Route to Pharmacy Electronically, [id number], Partial fill upon patient request if the prescription is for... Start Date: 04/28/21 Status: Ordered SEROquel 25 mg oral tablet 50 mg, 2, tablet, By Mouth, 2 times a day, # 28 tablet, Refills 4, Tot. Refills 4, Maintenance, 04/09/21 11:42:00 EDT, Route to Pharmacy Electronically, [id number], Partial fill upon patient request if [...] 0 Refills, Maintenance, 04/28/21 12:55:00 EDT, ERCapsule, [id number], Partial fill upon patient request if the prescription is for a schedule II opioid drug., 177, cm, 04/23/21... Start Date: 04/28/21 Status: Ordered topiramate 50 mg oral tablet 1 tablet = 50 mg, By Mouth, Daily, # 7 tablet, 4 Refills, Maintenance, 04/09/21 11:43:00 EDT, Tablet, [id number], Partial fill upon patient request if the prescription is for a schedule II opioid drug., 177, cm, 04/09/21 11:26:... Start Date: 04/09/21 Stop Date: 05/14/21 Status: Ordered Problem List Condition Effective Dates Status Health Status Inform ant Asthma(Confirmed) Active HTN (hypertension)(Confirmed) Active Fibrodysplasia ossificans congenita(Confirmed) Active Herniated lumbar interverteb ral disc(Confirmed) Active Diagnosis Diagnosis Type Effective Dates Health Status Clinical Service Informant Abnormal physical evaluation Discharge Diagnosis 05/14/21 Abnormality of tongue Discharge Diagnosis 05/14/21 Asthma Discharge Diagnosis 05/14/21 HTN (hypertension) Discharge Diagnosis 05/14/21 Right hip pain Discharge Diagnosis 05/14/21 Vision changes Discharge Diagnosis 05/14/21 Tobacco abuse Discharge Diagnosis 05/14/21 Vital Signs Most recent to oldest [Reference Range]: 1 Height 174.4 cm (05/14/21 8:26 AM) Weight 122.6 kg (05/14/21 8:26 AM) Oxygen Saturation [94-100 %] 100 % (05/14/21 8:26 AM) Pulse Rate [55-90 bpm] 87 bpm (05/14/21 8:26 AM) Body Mass Index [18.5-24.99] 40.31 *>HHI* (05/14/21 8:26 AM) Blood Pressure [90-138/55-84 mm Hg] 122/ 83mm Hg (05/14/21 8:26 AM) Temperature [96.8-100.4 DegF] 98.5 DegF (05/14/21 8:26 AM) Mode of Delivery (Oxygen) Room air (05/14/21 8:26 AM) Blood pressure sites Arm, left (05/14/21 8:26 AM) Temperature Route Oral (05/14/21 8:26 AM) Weight Obtained Via Standing scale (05/14/21 8:26 AM) Social History Social History Type Response Smoking Status 5-9 cigarettes (betw een 1/4 to 1/2 pack)/day in last 30 days; Other: 4 / day now; entered on: 02/15/21 Sex
--- OUTSIDE RECORDS SUMMARY | 2023-03-30 13:57 | XMS_ITS | Continuity of Care Document ---
Author Name Unknown Organization [facility] Adult Address [address] [place] [address]- Care Team Providers Care Risk Management Director Name Role Phone Terrie Kruger NP Primary Care Physician [place] [facility] Date(s): 05/26/21 - 06/25/21 [facility] [address] [place] [address]- Allergies, Adverse Reactions, Alerts Substance Reaction Severity Status codeine Active aspirin Active Haldol Active NSAIDs Active PROzac Active TraMADol Hydrochloride Activ e Immunizations Given and Recorded Vaccine Date Status Refusal Reason tetanus/diphtheria/pertussis, acel(Tdap) 1 05/14/21 Given SARS-CoV-2 (COVID-19) Ad26 vaccine 2 02/15/21 Give n Influenza Virus Vaccine (oldterm) 06/11/20 Recorde d 1Result Comment: [facility] [id number] 2Result Comment: [facility] [id number] Medications Albuterol (Eqv-ProAir HFA) 90 mcg/inh inhalation [...] Acute 04/29/22 13:01:00 EDT, 04/28/21 12:59:00 EDT, [place], [id number], Partial fill upon patient reque... Start Date: 04/28/21 Stop Date: 04/29/22 Status: Ordered benztropine 1 mg oral tablet 1 mg, 1, tablet, By Mouth, Daily at bedtime, # 30 tablet, Refills 0, Tot. Refills 0, Maintenance, 04/28/21 12:55:00 EDT, Route to Pharmacy Electronically, [id number], Partial fill upon patient request if the prescription is for... Start Date: 04/28/21 Status: Ordered benztropine 1 mg oral tablet 1 mg, 1, tablet, By Mouth, Daily at bedtime, # 7 tablet, Refills 4, Tot. Refills 4, Maintenance, 04/09/21 11:42:00 EDT, Route to Pharmacy Electronically, [id number], Partial fill upon patient request if [...] 05/17/21 9:33:00 EDT, Route to Pharmacy Electronically, [facility], Partial fill upon patient request if [...] 0 Refills, Maintenance, 04/09/21 11:42:00 EDT, [place], [id number], Partial fill upon patient request if [...] Status: Ordered QUEtiapine 100 mg oral tablet 100 mg, 1, tablet, By Mouth, Daily at bedtime, # 30 tablet, Refills 0, Tot. Refills 0, Maintenance,05/31/21 10:46:00 EDT, Route to Pharmacy Electronically, [facility], Partial fill upon patient request if the prescription is for a schedule... Start Date: 05/31/21 Stop Date: 06/30/21 Status: Ordered QUEtiapine 25 mg oral tablet 50 mg, 2, tablet, By Mouth, 2 times a day, # 120 tablet, Refills 0, Tot. Refills 0, Maintenance, 05/31/21 10:46:00 EDT, Route to Pharmacy Electronically, [facility], Partial fill upon patient request if the prescription is for a schedule II... Start Date: 05/31/21 Stop Date: 06/30/21 Status: Ordered SEROquel 100 mg oral tablet 100 mg, 1, tablet, By Mouth, Daily at bedtime, # 30 tablet, Refills 0, Tot. Refills 0, Maintenance,04/28/21 12:54:00 EDT, Route to Pharmacy Electronically, [id number], Partial fill upon patient request if the prescription is f... Start Date: 04/28/21 Status: Ordered SEROquel 100 mg oral tablet 100 mg, 1, tablet, By Mouth, Daily at bedtime, # 7 tablet, Refills 4, Tot. Refills 4, Maintenance, 04/09/21 11:42:00 EDT, Route to Pharmacy Electronically, [id number], Partialfill upon patient request if the prescription is fo... Start Date: 04/09/21 Stop Date: 05/14/21 Status: Ordered SEROquel 25 mg oral tablet 50 mg, 2, tablet, By Mouth, 2 times a day, # 120 tablet, Refills 0, Tot. Refills 0, Maintenance, 04/28/21 12:55:00 EDT, Route to Pharmacy Electronically, [id number], Partial fill upon patient request if the prescription is for... Start Date: 04/28/21 Status: Ordered SEROquel 25 mg oral tablet 50 mg, 2, tablet, By Mouth, 2 times a day, # 28 tablet, Refills 4, Tot. Refills 4, Maintenance, 04/09/21 11:42:00 EDT, Route to Pharmacy Electronically, [id number], Partial fill upon patient request if [...] 0 Refills, Maintenance, 04/28/21 12:55:00 EDT, ERCapsule, [id number], Partial fill upon patient request if the prescription is for a schedule II opioid drug., 177, cm, 04/23/21... Start Date: 04/28/21 Status: Ordered topiramate 50 mg oral tablet 1 tablet = 50 mg, By Mouth, Daily, # 30 tablet, 0 Refills, Maintenance, 05/31/21 10:46:00 EDT, [facility], Partial fill upon patient request if the prescription is for a schedule II opioid drug., 174.4, cm, 05/14/21 8:26:00 EDT, Height, 118.... Start Date: 05/31/21 Stop Date: 06/30/21 Status: Ordered topiramate 50 mg oral tablet 1 tablet = 50 mg, By Mouth, Daily, # 7 tablet, 4 Refills, Maintenance, 04/09/21 11:43:00 EDT, Tablet, [id number], Partial fill upon patient request if [...]
--- OUTSIDE RECORDS SUMMARY | 2023-03-30 13:57 | XMS_ITS | Continuity of Care Document ---
Author Name Unknown Organization [facility] Adult Address [address] [place] [address]- Care Team Providers Care Food Service Supervisor Name Role Phone Not on Staff, PCP Primary Care Physician Unavail able Encounter [facility] Date(s): 11/18/21 - 12/18/21 [facility] [address] [place] [address]- Allergies, Adverse Reactions, Alerts Substance Reaction Severity Status codeine Active aspirin Active Haldol Active NSAIDs Active PROzac Active TraMADol Hydrochloride Activ e Immunizations Given and Recorded Vaccine Date Status Refusal Reason tetanus/diphtheria/pertussis, acel(Tdap) 1 05/14/21 Given SARS-CoV-2 (COVID-19) Ad26 vaccine 2 02/15/21 Give n Influenza Virus Vaccine (oldterm) 06/11/20 Recorde d 1Result Comment: [facility] [id number] 2Result Comment: [facility] [id number] Medications lidocaine 5% topical ointment 1 application, Topically, 3 times a day, # 50 Gm, 0 Refills, Maintenance, 11/19/21 17:24:00 EDT, Ointment, [facility], Partial fill upon patient request if the prescription is for a schedule II opioid drug., 1 application Topically 3 times a... Start Date: 11/19/21 Status: Ordered Problem List Condition Effective Dates [...]
--- OUTSIDE RECORDS SUMMARY | 2023-03-30 13:57 | XMS_ITS | Continuity of Care Document ---
Author Name Unknown Organization [facility] ter Address [address] [place] [address]- Care Team Providers Care Semiconductor Lab Technician Name Role Phone Not on Staff, PCP Primary Care Physician Unavail able Encounter [facility] Date(s): 12/14/21 - 12/15/[address] [address]- Encounter Diagnosis Cough(Final) - 12/14/21 Discharge Disposition: Transfer to [facility] Attending Physician: Kirill Gallardo MD Admitting Physician: Kirill Gallardo MD Referring Physician: Not on Staff, Referring [...] d 1Result Comment: [facility] [id number] 2Result Comment: [facility] [id number] Medications lidocaine 5% topical ointment 1 application, Topically, 3 times a day, # 50 Gm, 0 Refills, Maintenance, 11/19/21 17:24:00 EDT, Ointment, [facility], Partial fill upon patient request if [...] Exam Date Time Procedure Performing Provider Status 12/14/21 3:11 AM Chest Portable Shannon Botello; Auth (Verified) Notes: (Chest Portable) Reason For Exam: Shortness of Breath RESULT: Chest Portable Chest Portable Hx of Present Illness: SI back pain; Reason: Shortness of Breath; Clinical Question(s): CHF COMPARISON: April, FINDINGS: Possible nodules right mid lung and left upper lung field as marked. Lungs otherwise clear, no infiltrates. CP angles sharp. Cardiac silhouette, vascularity, hilar and mediastinal regions unremarkable. Bony thorax and surrounding soft tissues unremarkable. IMPRESSION: Possible small nodules on both right and left, recommend follow-up or CT. WSN: [id number] Ordering Physician: Mamta Sparks Dictated By: Kirill Rosales MD Dictated Date/Time: 12/14/21 8:15 am Reviewed By: Kirill Rosales MD Signed By: Kirill Rosales MD Signed Date/Time: 12/14/21 8:15 am Transcribed By: CALEB Transcribed Date/Time: 12/14/21 8:13 am Vital Signs Most recent to oldest [Reference Range]: 1 2 3 Oxygen Saturation [94-100 %] 98 % (12/15/21 6:42 AM) 98 % (12/14/21 8:01 PM) 95 % (12/14/21 10:38 AM) Pulse Rate [55-90 bpm] 87 bpm (12/15/21 6:42 AM) 80 bpm (12/14/21 8:01 PM) 76 bpm (12/14/21 10:38 AM) Blood Pressure [90-138/55-84 mm Hg] 146/108mm Hg *H* (12/15/21 6:42 AM) 155/93mm Hg *H* (12/14/21 8:01 PM) 141/84mm Hg *H* (12/14/21 10:38 AM) Respiratory Rate [16-30 br/min] 16 br/min (12/15/21 6:42 AM) 16 br/min (12/14/21 8:01 PM) 15 br/min *L* (12/14/21 10:38 AM) Temperature [96.8-100.4 DegF] 97.4 DegF (12/15/21 6:42 AM) 97.5 DegF (12/14/21 8:01 PM) 97.6 DegF (12/14/21 10:38 AM) Mode of Delivery (Oxygen) Room air (12/15/21 6:42 AM) Room air (12/14/21 8:01 PM) Room air (12/14/21 10:38 AM) Blood pressure sites Arm, right (12/15/21 6:42 AM) Arm, right (12/14/21 8:01 PM) Arm, left (12/14/21 10:38 AM) Temperature Route Oral (12/15/21 6:42 AM) Oral (12/14/21 8:01 PM) Oral (12/14/21 10:38 AM) Social History Social History Type Response Smoking Status 5-9 cigarettes (betw een 1/4 to 1/2 pack)/day in last 30 days; Other: 4 / day now; entered on: 02/15/21 Sex
--- OUTSIDE RECORDS SUMMARY | 2023-03-30 13:57 | XMS_ITS | Continuity of Care Document ---
Author Name Unknown Organization [facility] Address [address] [place] [address]- Care Team Providers Care Slp Name Role Phone Not on Staff, PCP Primary Care Physician Unavail able [facility]counter [facility] Date(s): 11/08/22 - 11/15/22 [facility] [address] [place], [place] [address] Attending Physician: Yevgeniy ÁLVAREZ, Polly Kapoor Allergies, Adverse Reactions, Alerts Substance Reaction Severity Status codeine Active aspirin Active Haldol Active PROzac Active TraMADol Hydrochloride Activ e Immunizations Given and Recorded Vaccine Date Status Refusal Reason [id number] bivalent booster vax 06/21/22 Recorded tetanus/diphtheria/pertussis, acel(Tdap) 1 05/14/21 Given SARS-CoV-2 (COVID-19) Ad26 vaccine 2 02/15/21 Give n Influenza Virus Vaccine (oldterm) 06/11/20 Recorde d 1Result Comment: [facility] [id number] 2Result Comment: [facility] [id number] Medications duloxetine 30 mg oral enteric coated capsule 1 capsule = 30 mg, By Mouth, 2 times a day, # 60 capsule, 1 Refills, Maintenance, 11/08/22 11:26:00EDT, EC Capsule, [facility], Partial fill upon patient request if [...] Care Team Personnel Name: Mahendra Maria Position: [facility] RN Supv Member Role: Primary Care Nurse Name: Jeni Solorio RN Position: S RN Member Role: Primary Care Nurse Name: Rebekah Delatorre RN Position: [facility] RN Member Role: Primary Care Nurse Name: Sandi Hightower RN Position: [facility] RN Member Role: Primary Care Nurse Name: Angelita Almeida RN Position: [facility] RN Member Role: Primary Care Nurse Name: Not on Staff, PCP Position: [facility] Physician (General Medicine) Member Role: PCP Care Team Related Persons Name: AIDA DEWEY Address: [place] [address] Name: SHANNON CARLIN
--- OUTSIDE RECORDS SUMMARY | 2023-03-30 13:57 | XMS_ITS | Continuity of Care Document ---
Author Name Unknown Organization [facility] Adult Address [address] [place] [address]- Care Team Providers Care Body Trimmer Upholsterer Name Role Phone Not on Staff, PCP Primary Care Physician Unavail able Encounter [facility] Date(s): 08/09/21 - 09/08/21 [facility] [address] [place] [address]- Attending Physician: Kimberly Brunson Admitting Physician: AdmtrKimberly Referring Physician: Admtr, Ar8 Allergies, Adverse Reactions, Alerts Substance Reaction Severity Status codeine Active aspirin Active Haldol Active NSAIDs Active PROzac Active TraMADol Hydrochloride Activ e Immunizations Given and Recorded Vaccine Date Status Refusal Reason tetanus/diphtheria/pertussis, acel(Tdap) 1 05/14/21 Given SARS-CoV-2 (COVID-19) Ad26 vaccine 2 02/15/21 Give n Influenza Virus Vaccine (oldterm) 06/11/20 Recorde d 1Result Comment: [facility] [id number] 2Result Comment: [facility] [id number] Medications Albuterol (Eqv-ProAir HFA) 90 mcg/inh inhalation [...] Acute 04/29/22 13:01:00 EDT, 04/28/21 12:59:00 EDT, [place], [facility], Partial fill upon patient reque... Start Date: 04/28/21 Stop Date: 04/29/22 Status: Ordered benztropine 1 mg oral tablet 1 mg, 1, tablet, By Mouth, Daily at bedtime, # 30 tablet, Refills 0, Tot. Refills 0, Maintenance, 04/28/21 12:55:00 EDT, Route to Pharmacy Electronically, [facility], Partial fill upon patient request if the prescription is for... Start Date: 04/28/21 Status: Ordered benztropine 1 mg oral tablet 1 mg, 1, tablet, By Mouth, Daily at bedtime, # 7 tablet, Refills 4, Tot. Refills 4, Maintenance, 04/09/21 11:42:00 EDT, Route to Pharmacy Electronically, [facility], Partial fill upon patient request if the [...] 05/17/21 9:33:00 EDT, Route to Pharmacy Electronically, [facility], Partial fill upon patient request if [...] 08/09/21 13:33:00 EST, Route to Pharmacy Electronically, [facility]... Start Date: 08/09/21 Stop Date: 08/23/21 [...] 0 Refills, Maintenance, 04/09/21 11:42:00 EDT, [place], [facility], Partial fill upon patient request if the [...] 13:34:00 EST, 07/09/21 13:34:00 EST, ER Tablet, [facility], Partial fill upon patient request if the prescription is... Start Date: 07/09/21 Stop Date: 10/07/21 Status: Ordered Medrol 4 mg oral tablet 1 pack/packet, By Mouth, Once, # 21 tablet, 0 Refills, Soft Stop, 08/09/21 13:32:00 EST, Tablet, [facility], Partial fill upon patient request if [...] 0 Refills, Maintenance, 08/09/21 13:32:00 EST, Aerosol, [facility], Partial fill upon patient request if the prescription is for a schedule II opioid drug., 1 puffs In... Start Date: 08/09/21 Stop Date: 09/08/21 Status: Ordered QUEtiapine 100 mg oral tablet 1, tablet, By Mouth, Daily at bedtime, # 30 tablet, Refills 2, Route to Pharmacy Electronically, [facility], 174.4, cm, 07/30/21 13:48:00 EST, Height, [...] Mouth, Daily, # 30 tablet, 5 Refills, [facility], 174.4, cm, 07/30/21 13:48:00 EST, Height, [...]
--- OUTSIDE RECORDS SUMMARY | 2023-03-30 13:57 | XMS_ITS | Continuity of Care Document ---
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 Name Role Phone Terrie Kruger NP Primary Care Physician Encounter [facility] [place] Date(s): 06/22/20 - 06/24/[address] [address]- [facility] Encounter Diagnosis Depressed mood(Final) - 06/24/20 Discharge Disposition: Transfer to [facility] Attending Physician: Lupis Mrecer MD Admitting Physician: Lupis Mercer MD Referring Physician: Not on Staff, Referring MD Allergies, Adverse Reactions, Alerts Substance Reaction Severity Status codeine Active aspirin Active Haldol Active NSAIDs Active PROzac Active Medications acetaminophen 325 mg oral tablet 650 mg, By Mouth, Every 8 hours, PRN, for 5 days, # 30 tablet, Refills 0, Tot. Refills 0, Acute 06/29/20 14:30:00 EST, Pain , Moderate, 06/24/20 14:30:00 EDT, Print Requisition Start Date: 06/24/20 Stop Date: 06/29/20 Status: Ordered amLODIPine 10 mg oral tablet 10 mg, 1, tablet, By Mouth, Daily, # 5 tablet, Refills 0, Tot. Refills 0, Maintenance, 06/24/20 14:30:00 EDT, Print Requisition Start Date: 06/24/20 Stop Date: 06/29/20 Status: Ordered amLODIPine 10 mg oral tablet 0 Refills, Maintenance, 06/15/20 8:34:00 EDT Start Date: 06/15/20 Status: Ordered clindamycin 300 mg oral capsule 1 capsule = 300 mg, By Mouth, Every 8 hours, for 5 days, # 15 capsule, 0 Refills, Acute 06/29/20 14:33:00 EST, 06/24/20 14:33:00 EDT, Capsule Start Date: 06/24/20 Stop Date: 06/29/20 Status: Ordered diphenhydrAMINE 50 mg oral tablet = 50 mg, By Mouth, Daily at bedtime, for 5 days, # 5 tablet, 0 Refills, Acute 06/29/20 14:30:00 EST, 06/24/20 14:30:00 EDT, Tablet Start Date: 06/24/20 Stop Date: 06/29/20 Status: Ordered doxepin 3 mg oral tablet 1 tablet = 3 mg, By Mouth, Daily at bedtime, for 14 days, # 14 tablet, 0 Refills, Acute 07/08/20 16:07:00 EST, 06/24/20 16:07:00 EDT, Tablet, [facility]-, 131.2, kg, 05/31/20 10:53:00 EDT, Dry Weight Start Date: 06/24/20 Stop Date: 07/08/20 Status: Ordered KlonoPIN 0.5 mg oral tablet 1 tablet = 0.5 mg, By Mouth, 2 times a day, # 28 tablet, 0 Refills, Maintenance, 06/24/20 16:06:00 EDT, Tablet, [facility]-, 131.2, kg, 05/31/20 10:53:00 EDT, Dry Weight Start Date: 06/24/20 Stop Date: 07/08/20 Status: Ordered Lexapro 10 mg oral tablet 0.5 tablet = 5 mg, By Mouth, Daily, # 7 tablet, 0 Refills, Maintenance, 06/24/20 16:05:00 EDT, Tablet, [facility]-, 131.2, kg, 05/31/20 10:53:00 EDT, Dry Weight Start Date: 06/24/20 Stop Date: 07/08/20 Status: Ordered losartan 25 mg oral tablet 25 mg, 1, tablet, By Mouth, Daily, # 5 tablet, Refills 0, Tot. Refills 0, Maintenance, 06/24/20 14:30:00 EDT, Print Requisition Start Date: 06/24/20 Stop Date: 06/29/20 Status: Ordered losartan 25 mg oral tablet 0 Refills, Maintenance, 06/15/20 8:34:00 EDT Start Date: 06/15/20 Status: Ordered pantoprazole 40 mg oral delayed release tablet = 40 mg, By Mouth, Daily, # 5 capsule, 0 Refills, Maintenance, 06/24/20 14:30:00 EDT, EC Tablet Start Date: 06/24/20 Stop Date: 06/29/20 Status: Ordered ProAir HFA 90 mcg/inh inhalation aerosol 2 puffs, Inhalation, Every 4 hours, PRN Wheezing/Shortness of Breath, # 1 each, 0 Refills, Maintenance, 06/24/20 14:30:00 EDT, Inhaler Start Date: 06/24/20 Status: Ordered Problem List Condition Effective Dates Status Health Status Inform ant Asthma(Confirmed) Active HTN (hypertension)(Confirmed) Active Fibrodysplasia ossificans congenita(Confirmed) Active Herniated lumbar interverteb ral disc(Confirmed) Active Results Radiology Reports * Exam Date Time Procedure Performing Provider Status 06/22/20 9:17 PM Chest Portable Ellen Damon; [facility] (Verified) Notes: (Chest Portable) Reason For Exam: Chest Pain;Other: RESULT: Chest Portable Chest Portable INDICATION: Dyspnea, chest pain, altered mental status. Afebrile. COMPARISON: None. FINDINGS: Slightly suboptimal examination, which is likely technical or due to patient's body habitus. LINES AND TUBES: None. LUNGS AND PLEURA: Small right basilar opacity, which may represent atelectasis or pneumonia. Left basilar atelectasis. No pleural effusion. No pneumothorax. HEART, MEDIASTINUM AND CASSY: Heart is normal in size. Normal mediastinal and hilar contour. BONES AND SOFT TISSUES: No acute abnormality. IMPRESSION: Small right basilar atelectasis versus pneumonia. A [employer] message has been communicated via the [employer] system on 06/22/2020 9:26 PM, Message ID [id number]. I have personally reviewed the images and I agree with this report. WSN: [id number] Ordering Physician: Che Tenorio Dictated By: Abhi Chaudhry DO Dictated Date/Time: 06/22/20 9:30 pm Reviewed By: Kj Martin MD Signed By: Kj Martin MD Signed Date/Time: 06/22/20 9:35 pm Transcribed By: CALEB Transcribed Date/Time: 06/22/20 9:26 pm Vital Signs Most recent to oldest [Reference Range]: 1 2 3 Oxygen Saturation [94-100 %] 100 % (06/24/20 4:02 PM) 100 % (06/24/20 2:45 PM) 98 % (06/24/20 5:12 AM) Pulse Rate [55-90 bpm] 78 bpm (06/24/20 4:02 PM) 76 bpm (06/24/20 2:45 PM) 82 bpm (06/24/20 5:12 AM) Blood Pressure [90-138/55-84 mm Hg] 132/88mm Hg (06/24/20 4:02 PM) 131/80mm Hg (06/24/20 2:45 PM) 126/75mm Hg (06/24/20 8:07 AM) Respiratory Rate [16-30 br/min] 18 br/min (06/24/20 4:02 PM) 18 br/min (06/24/20 2:45 PM) 16 br/min (06/24/20 5:12 AM) Temperature [96.8-100.4 DegF] 98.2 DegF (06/24/20 2:45 PM) 97.2 DegF (06/24/20 5:12 AM) 98.4 DegF (06/23/20 9:23 PM) Mode of Delivery (Oxygen) Room air (06/24/20 4:02 PM) Room air (06/24/20 2:45 PM) Room air (06/24/20 5:12 AM) Blood pressure sites Arm, right (06/24/20 2:45 PM) Arm, right (06/24/20 5:12 AM) Arm, right (06/23/20 9:23 PM) Temperature Route Oral (06/24/20 2:45 PM) Oral (06/24/20 5:12 AM) Oral (06/23/20 9:23 PM) Social History Social History Type Response Smoking Status 5-9 cigarettes (betw een 1/4 to 1/2 pack)/day in last 30 days; Other: 1/2 PPD started at 14; entered on: 06/15/20 Sex
--- OUTSIDE RECORDS SUMMARY | 2023-03-30 13:57 | XMS_ITS | Continuity of Care Document ---
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 Name Role Phone Saskia ANTHONY, Terrie Primary Care Physician [phone] [place] [facility] [place]20 - 01/17/21 [facility] [address] [place] [address]- Attending Physician: Terrie Kruger NP Allergies, Adverse Reactions, Alerts Substance Reaction Severity Status codeine Active aspirin Active Haldol Active NSAIDs Active PROzac Active Immunizations Given and Recorded Vaccine Date Status Refusal Reason Influenza Virus Vaccine (oldterm) 06/11/20 Recorde d Medications amLODIPine 10 mg oral tablet 1 tablet = 10 mg, By Mouth, Daily, # 90 tablet, 0 Refills, Maintenance, 11/24/20 8:12:00 EDT, [id number], Partial fill upon patient request if the prescription is for a schedule II opioid drug., 174, cm, 11/24/20 7:51:00 EDT, H... Start Date: 11/24/20 Stop Date: 02/22/21 Status: Ordered Breo Ellipta 200 mcg-25 mcg/inh inhalation powder 1 puffs, Inhalation, Daily, # 3 each, 0 Refills, Maintenance, 11/24/20 8:10:00 EDT, [id number], Partial fill upon patient request if the prescription is for a schedule II opioid drug., 1 puffs Inhalation Daily,x90 days, 174, cm... Start Date: 11/24/20 Stop Date: 02/22/21 Status: Ordered escitalopram 10 mg oral tablet 1 tablet = 10 mg, By Mouth, Daily, # 90 tablet, 0 Refills, Maintenance, 11/24/20 8:10:00 EDT, [id number], Partial fill upon patient request if the [...] tablet, 0 Refills, Maintenance, 11/24/20 8:11:00 EDT, [id number], Partial fill upon patient request if the prescription is for a schedule II opioid drug., 174, cm, 11/24/20 7:51:00 EDT, H... Start Date: 11/24/20 Stop Date: 02/22/21 Status: Ordered ProAir HFA 90 mcg/inh inhalation aerosol 2 puffs, Inhalation, Every 6 hours, PRN Wheezing/Shortness of Breath, # 1 each, 0 Refills, Maintenance, 11/24/20 8:13:00 EDT, [id number], Partial fill upon patient request [...]
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
--- OUTSIDE RECORDS SUMMARY | 2023-03-30 13:57 | XMS_ITS | Continuity of Care Document ---
Author Name Unknown Organization [facility] Adult Address [address] [place] [address]- Care Team Providers Care Family Support Worker Name Role Phone Terrie Kruger NP Primary Care Physician Encounter [facility] [place] Date(s): 05/28/20 - 06/27/20 [facility] [address] [place] [address]- [facility] Allergies, Adverse Reactions, Alerts Substance Reaction Severity [...] 07/08/20 16:07:00 EST, 06/24/20 16:07:00 EDT, Tablet, [facility], 131.2, kg, 05/31/20 10:53:00 EDT, Dry Weight Start Date: 06/24/20 Stop Date: 07/08/20 Status: Ordered KlonoPIN 0.5 mg oral tablet 1 tablet = 0.5 mg, By Mouth, 2 times a day, # 28 tablet, 0 Refills, Maintenance, 06/24/20 16:06:00 EDT, Tablet, [facility], 131.2, kg, 05/31/20 10:53:00 EDT, Dry Weight Start Date: 06/24/20 Stop Date: 07/08/20 Status: Ordered Lexapro 10 mg oral tablet 0.5 tablet = 5 mg, By Mouth, Daily, # 7 tablet, 0 Refills, Maintenance, 06/24/20 16:05:00 EDT, Tablet, [facility], 131.2, kg, 05/31/20 10:53:00 EDT, Dry Weight [...]
--- OUTSIDE RECORDS SUMMARY | 2023-03-30 13:57 | XMS_ITS | Continuity of Care Document ---
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 Name Role Phone Not on Staff, PCP Primary Care Physician Unavail able Encounter [facility] Date(s): 11/03/22 - 12/03/22 [facility] [address] [place], [place] [address] Allergies, Adverse Reactions, Alerts Substance Reaction Severity Status codeine Active aspirin Active Haldol Active PROzac Active TraMADol Hydrochloride Activ e Immunizations Given and Recorded Vaccine Date Status Refusal Reason [id number] bivalent booster vax 06/21/22 Recorded tetanus/diphtheria/pertussis, acel(Tdap) 1 05/14/21 Given SARS-CoV-2 (COVID-19) Ad26 vaccine 2 02/15/21 Give n Influenza Virus Vaccine (oldterm) 06/11/20 Recorde d 1Result Comment: [facility] [id number] 2Result Comment: [facility] [id number] Medications duloxetine 30 mg oral enteric coated capsule 1 capsule = 30 mg, By Mouth, 2 times a day, # 60 capsule, 1 Refills, Maintenance, 11/08/22 11:26:00EDT, EC Capsule, [facility], Partial fill upon patient request if [...] Care Team Personnel Name: Mahendra Maria Position: [facility] RN Supv Member Role: Primary Care Nurse Name: Jeni Solorio RN Position: S RN Member Role: Primary Care Nurse Name: Rebekah Delatorre RN Position: S RN Member Role: Primary Care Nurse Name: Sandi Hightower RN Position: S RN Member Role: Primary Care Nurse Name: Angelita Almeida RN Position: S RN Member Role: Primary Care Nurse Name: Not on Staff, PCP Position: [facility] Physician (General Medicine) Member Role: PCP Care Team Related Persons Name: AIDA DEWEY Address: [place] [address] Name: SHANNON CARLIN
--- OUTSIDE RECORDS SUMMARY | 2023-03-30 13:57 | XMS_ITS | Continuity of Care Document ---
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 Name Role Phone Saskia ANTHONY, Terrie Primary Care Physician [phone] [place] [facility] [place] 01/19/21 [facility] [address] [place] [address]- Encounter Diagnosis Cough(Discharge Diagnosis) - 01/12/21 Attending Physician: Luis Shelley MD Referring Physician: Terrie Kruger NP Allergies, Adverse Reactions, Alerts Substance Reaction Severity Status codeine Active aspirin Active Haldol Active NSAIDs Active PROzac Active Immunizations Given and Recorded Vaccine Date Status Refusal Reason Influenza Virus Vaccine (oldterm) 06/11/20 Recorde d Medications amLODIPine 10 mg oral tablet 1 tablet = 10 mg, By Mouth, Daily, # 90 tablet, 0 Refills, Maintenance, 11/24/20 8:12:00 EDT, [id number], Partial fill upon patient request if the prescription is for a schedule II opioid drug., 174, cm, 11/24/20 7:51:00 EDT, H... Start Date: 11/24/20 Stop Date: 02/22/21 Status: Ordered Breo Ellipta 200 mcg-25 mcg/inh inhalation powder 1 puffs, Inhalation, Daily, # 3 each, 0 Refills, Maintenance, 11/24/20 8:10:00 EDT, [id number], Partial fill upon patient request if the prescription is for a schedule II opioid drug., 1 puffs Inhalation Daily,x90 days, 174, cm... Start Date: 11/24/20 Stop Date: 02/22/21 Status: Ordered escitalopram 10 mg oral tablet 1 tablet = 10 mg, By Mouth, Daily, # 90 tablet, 0 Refills, Maintenance, 11/24/20 8:10:00 EDT, [id number], Partial fill upon patient request if the [...] tablet, 0 Refills, Maintenance, 11/24/20 8:11:00 EDT, [id number], Partial fill upon patient request if the prescription is for a schedule II opioid drug., 174, cm, 11/24/20 7:51:00 EDT, H... Start Date: 11/24/20 Stop Date: 02/22/21 Status: Ordered ProAir HFA 90 mcg/inh inhalation aerosol 2 puffs, Inhalation, Every 6 hours, PRN Wheezing/Shortness of Breath, # 1 each, 0 Refills, Maintenance, 11/24/20 8:13:00 EDT, [id number], Partial fill upon patient request if the prescription is for a schedule II opioid drug.,... Start Date: 11/24/20 Stop Date: 12/24/20 Status: Ordered Problem List Condition Effective Dates Status Health Status Inform ant Asthma(Confirmed) Active HTN (hypertension)(Confirmed) Active Fibrodysplasia ossificans congenita(Confirmed) Active Herniated lumbar interverteb ral disc(Confirmed) Active Diagnosis Diagnosis Type Effective Dates Health Status Clini fadi Service Informant Cough Discharge Diagnosis 01/12/21 Social History Social History Type Response Smoking Status 5-9 cigarettes (betw een 1/4 to 1/2 pack)/day in last 30 days; Other: 1/2 PPD started at 14; entered on: 06/15/20 Sex
--- OUTSIDE RECORDS SUMMARY | 2023-03-30 13:57 | XMS_ITS | Continuity of Care Document ---
Author Name Unknown Organization [facility] Address [address] [place] [address]- Care Team Providers Care Soil Specialist Name Role Phone Terrie Kruger NP Primary Care Physician [place] [facility] [place] 06[place]/20 [facility] [address] [place] [address]- [facility] Attending Physician: Terrie Kruger NP Allergies, Adverse [...]
--- OUTSIDE RECORDS SUMMARY | 2023-03-30 13:57 | XMS_ITS | Continuity of Care Document ---
Author Name Unknown Organization [facility] Adult Address [address] [place] [address]- Care Team Providers Care Dairy Farm Supervisor Name Role Phone Terrie Kruger NP Primary Care Physician Encounter [facility] Date(s): 05/14/21 - 06/13/21 [facility] [address] [place] [address]- Allergies, Adverse Reactions, Alerts Substance Reaction Severity Status codeine Active aspirin Active Haldol Active NSAIDs Active PROzac Active TraMADol Hydrochloride Activ e Immunizations Given and Recorded Vaccine Date Status Refusal Reason tetanus/diphtheria/pertussis, acel(Tdap) 1 05/14/21 Given SARS-CoV-2 (COVID-19) Ad26 vaccine 2 02/15/21 Give n Influenza Virus Vaccine (oldterm) 06/11/20 Recorde d 1Result Comment: [facility] [id number] 2Result Comment: [facility] [id number] Medications Albuterol (Eqv-ProAir HFA) 90 mcg/inh inhalation [...] Acute 04/29/22 13:01:00 EDT, 04/28/21 12:59:00 EDT, [place], [id number], Partial fill upon patient reque... Start Date: 04/28/21 Stop Date: 04/29/22 Status: Ordered benztropine 1 mg oral tablet 1 mg, 1, tablet, By Mouth, Daily at bedtime, # 30 tablet, Refills 0, Tot. Refills 0, Maintenance, 04/28/21 12:55:00 EDT, Route to Pharmacy Electronically, [id number], Partial fill upon patient request if the prescription is for... Start Date: 04/28/21 Status: Ordered benztropine 1 mg oral tablet 1 mg, 1, tablet, By Mouth, Daily at bedtime, # 7 tablet, Refills 4, Tot. Refills 4, Maintenance, 04/09/21 11:42:00 EDT, Route to Pharmacy Electronically, [id number], Partial fill upon patient request [...] 05/17/21 9:33:00 EDT, Route to Pharmacy Electronically, [facility], Partial fill upon patient request if [...] 0 Refills, Maintenance, 04/09/21 11:42:00 EDT, [place], [id number], Partial fill upon patient request [...] Maintenance,05/31/21 10:46:00 EDT, Route to Pharmacy Electronically, [facility], Partial fill upon patient request if the prescription is for a schedule... Start Date: 05/31/21 Stop Date: 06/30/21 Status: Ordered QUEtiapine 25 mg oral tablet 50 mg, 2, tablet, By Mouth, 2 times a day, # 120 tablet, Refills 0, Tot. Refills 0, Maintenance, 05/31/21 10:46:00 EDT, Route to Pharmacy Electronically, [facility], Partial fill upon patient request if the prescription is for a schedule II... Start Date: 05/31/21 Stop Date: 06/30/21 Status: Ordered SEROquel 100 mg oral tablet 100 mg, 1, tablet, By Mouth, Daily at bedtime, # 30 tablet, Refills 0, Tot. Refills 0, Maintenance,04/28/21 12:54:00 EDT, Route to Pharmacy Electronically, [id number], Partial fill upon patient request if the prescription is f... Start Date: 04/28/21 Status: Ordered SEROquel 100 mg oral tablet 100 mg, 1, tablet, By Mouth, Daily at bedtime, # 7 tablet, Refills 4, Tot. Refills 4, Maintenance, 04/09/21 11:42:00 EDT, Route to Pharmacy Electronically, [id number], Partialfill upon patient request if the prescription is fo... Start Date: 04/09/21 Stop Date: 05/14/21 Status: Ordered SEROquel 25 mg oral tablet 50 mg, 2, tablet, By Mouth, 2 times a day, # 120 tablet, Refills 0, Tot. Refills 0, Maintenance, 04/28/21 12:55:00 EDT, Route to Pharmacy Electronically, [id number], Partial fill upon patient request if the prescription is for... Start Date: 04/28/21 Status: Ordered SEROquel 25 mg oral tablet 50 mg, 2, tablet, By Mouth, 2 times a day, # 28 tablet, Refills 4, Tot. Refills 4, Maintenance, 04/09/21 11:42:00 EDT, Route to Pharmacy Electronically, [id number], Partial fill upon patient request [...] 0 Refills, Maintenance, 04/28/21 12:55:00 EDT, ERCapsule, [id number], Partial fill upon patient request if the prescription is for a schedule II opioid drug., 177, cm, 04/23/21... Start Date: 04/28/21 Status: Ordered topiramate 50 mg oral tablet 1 tablet = 50 mg, By Mouth, Daily, # 30 tablet, 0 Refills, Maintenance, 05/31/21 10:46:00 EDT, [facility], Partial fill upon patient request if the prescription is for a schedule II opioid drug., 174.4, cm, 05/14/21 8:26:00 EDT, Height, 118.... Start Date: 05/31/21 Stop Date: 06/30/21 Status: Ordered topiramate 50 mg oral tablet 1 tablet = 50 mg, By Mouth, Daily, # 7 tablet, 4 Refills, Maintenance, 04/09/21 11:43:00 EDT, Tablet, [id number], Partial fill upon patient request [...]
--- OUTSIDE RECORDS SUMMARY | 2023-03-30 13:57 | XMS_ITS | Continuity of Care Document ---
Author Name Unknown Organization [facility] Adult Address [address] [place] [address]- Care Team Providers Care Ingredient Specialist Name Role Phone Terrie Kruger NP Primary Care Physician Encounter [facility] Date(s): 07/30/20 - 08/06/20 [facility] Adult [address] [place] [address]- Encounter Diagnosis Right-sided chest pain(Discharge Diagnosis) - 08/02/20 Attending Physician: Teresa Torres MD Allergies, Adverse Reactions, Alerts Substance Reaction [...] 0 Refills, Maintenance, 06/24/20 16:06:00 EDT, Tablet, [facility]-, 131.2, kg, 05/31/20 10:53:00 EDT, Dry Weight Start Date: 06/24/20 Stop Date: 07/08/20 Status: Ordered Lexapro 10 mg oral tablet 0.5 tablet = 5 mg, By Mouth, Daily, # 7 tablet, 0 Refills, Maintenance, 06/24/20 16:05:00 EDT, [facility], kg, 05/31/20 10:53:00 EDT, Dry [...] 11 Refills, Maintenance, 07/20/20 8:44:00 EST, Inhaler, [facility]-, 2 puffs Inhalation Every 4hours,PRN:Wheezing/Shortness of Breath, 131.2, kg,... Start Date: 07/20/20 Status: Ordered Problem List Condition Effective Dates Status Health Status Inform ant Asthma(Confirmed) Active HTN (hypertension)(Confirmed) Active Fibrodysplasia ossificans congenita(Confirmed) Active Herniated lumbar interverteb ral disc(Confirmed) Active Diagnosis Diagnosis Type Effective Dates Health Status Cl inical Service Informant Right-sided chest pain Discharge Diagnosis 08/02/20 Social History Social History Type Response Smoking Status 5-9 cigarettes (betw een 1/4 to 1/2 pack)/day in last 30 days; Other: 1/2 PPD started at 14; entered on: 06/15/20 Sex
--- OUTSIDE RECORDS SUMMARY | 2023-03-30 13:57 | XMS_ITS | Continuity of Care Document ---
Author Name Unknown Organization [facility] ter Address [address] [place] [address]- Care Team Providers Care Director Of Casino Marketing Name Role Phone Terrie Kruger NP Primary Care Physician [place] [facility] [place]02[place] - 05/02/[address] [address] Attending Physician: Saira Friend MD Referring Physician: Saira Friend MD Allergies, Adverse Reactions, Alerts Substance Reaction Severity Status codeine Active aspirin Active Haldol Active NSAIDs Active PROzac Active TraMADol Hydrochloride Activ e Immunizations Given and Recorded Vaccine Date Status Refusal Reason SARS-CoV-2 (COVID-19) Ad26 vaccine 1 02/15/21 Give n Influenza Virus Vaccine (oldterm) 06/11/20 Recorde d 1Result Comment: [facility] [id number] Medications Albuterol (Eqv-ProAir HFA) 90 mcg/inh inhalation [...] 05/08/21 12:56:00 EDT, 04/28/21 12:56:00 EDT, Tablet, [id number], Partial fill upon patient request if the prescription is for a schedule II opioid... Start Date: 04/28/21 Stop Date: 05/08/21 Status: Ordered benzocaine-menthol 5%-1% topical spray 1 sprays, Topically, Daily, PRN as needed for pain, gargle and swish, hold for 1 minute, then spit out, # 177 mL, 0 Refills, Acute 04/29/22 13:01:00 EDT, 04/28/21 12:59:00 EDT, [place], [facility], Partial fill upon patient reque... Start Date: 04/28/21 Stop Date: 04/29/22 Status: Ordered benztropine 1 mg oral tablet 1 mg, 1, tablet, By Mouth, Daily at bedtime, # 30 tablet, Refills 0, Tot. Refills 0, Maintenance, 04/28/21 12:55:00 EDT, Route to Pharmacy Electronically, [id number], Partial fill upon patient request if the prescription is for... Start Date: 04/28/21 Status: Ordered benztropine 1 mg oral tablet 1 mg, 1, tablet, By Mouth, Daily at bedtime, # 7 tablet, Refills 4, Tot. Refills 4, Maintenance, 04/09/21 11:42:00 EDT, Route to Pharmacy Electronically, [id number], Partial fill upon patient request if [...] 0 Refills, Maintenance, 04/09/21 11:42:00 EDT, [place], [facility], Partial fill upon patient request if [...] Maintenance,04/28/21 12:54:00 EDT, Route to Pharmacy Electronically, [facility], Partial fill upon patient request if the prescription is f... Start Date: 04/28/21 Status: Ordered SEROquel 100 mg oral tablet 100 mg, 1, tablet, By Mouth, Daily at bedtime, # 7 tablet, Refills 4, Tot. Refills 4, Maintenance, 04/09/21 11:42:00 EDT, Route to Pharmacy Electronically, [id number], Partialfill upon patient request if the prescription is fo... Start Date: 04/09/21 Stop Date: 05/14/21 Status: Ordered SEROquel 25 mg oral tablet 50 mg, 2, tablet, By Mouth, 2 times a day, # 120 tablet, Refills 0, Tot. Refills 0, Maintenance, 04/28/21 12:55:00 EDT, Route to Pharmacy Electronically, [facility], Partial fill upon patient request if the prescription is for... Start Date: 04/28/21 Status: Ordered SEROquel 25 mg oral tablet 50 mg, 2, tablet, By Mouth, 2 times a day, # 28 tablet, Refills 4, Tot. Refills 4, Maintenance, 04/09/21 11:42:00 EDT, Route to Pharmacy Electronically, [id number], Partial fill upon patient request if [...] 0 Refills, Maintenance, 04/28/21 12:55:00 EDT, ERCapsule, [facility], Partial fill upon patient request if the prescription is for a schedule II opioid drug., 177, cm, 04/23/21... Start Date: 04/28/21 Status: Ordered topiramate 50 mg oral tablet 1 tablet = 50 mg, By Mouth, Daily, # 7 tablet, 4 Refills, Maintenance, 04/09/21 11:43:00 EDT, Tablet, [facility], Partial fill upon patient request if [...]
--- OUTSIDE RECORDS SUMMARY | 2023-03-30 13:58 | XMS_ITS | Continuity of Care Document ---
Author Name Unknown Organization [facility] Adult Address [address] [place] [address]- Care Team Providers Care Tack Cleaner Name Role Phone Terrie Kruger NP Primary Care Physician [phone] Encounter [facility] Date(s): 11/17/20 - 12/17/20 [facility] Adult [address] [place] [address]- Allergies, Adverse Reactions, Alerts Substance Reaction Severity Status codeine Active aspirin Active Haldol Active NSAIDs Active PROzac Active Immunizations Given and Recorded Vaccine Date Status Refusal Reason Influenza Virus Vaccine (oldterm) 06/11/20 Recorde d Medications amLODIPine 10 mg oral tablet 1 tablet = 10 mg, By Mouth, Daily, # 90 tablet, 0 Refills, Maintenance, 11/24/20 [facility]12[facility] Partial fill upon patient request if the prescription is for a schedule II opioid drug., 174, cm, 11/24/20 7:51:00 EDT, H... Start Date: 11/24/20 Stop Date: 02/22/21 Status: Ordered Breo Ellipta 200 mcg-25 mcg/inh inhalation powder 1 puffs, Inhalation, Daily, # 3 each, 0 Refills, Maintenance, 11/24/20 8:10:00 EDT, [facility], Partial fill upon patient request if the prescription is for a schedule II opioid drug., 1 puffs Inhalation Daily,x90 days, 174, cm... Start Date: 11/24/20 Stop Date: 02/22/21 Status: Ordered escitalopram 10 mg oral tablet 1 tablet = 10 mg, By Mouth, Daily, # 90 tablet, 0 Refills, Maintenance, 11/24/20 8:10:00 EDT, [id number], Partial fill upon patient request if the [...] tablet, 0 Refills, Maintenance, 11/24/20 8:11:00 EDT, [facility], Partial fill upon patient request if the prescription is for a schedule II opioid drug., 174, cm, 11/24/20 7:51:00 EDT, H... Start Date: 11/24/20 Stop Date: 02/22/21 Status: Ordered ProAir HFA 90 mcg/inh inhalation aerosol 2 puffs, Inhalation, Every 6 hours, PRN Wheezing/Shortness of Breath, # 1 each, 0 Refills, Maintenance, 11/24/20 8:13:00 EDT, [id number], Partial fill upon patient request [...]
--- OUTSIDE RECORDS SUMMARY | 2023-03-30 13:58 | XMS_ITS | Continuity of Care Document ---
Author Name Unknown Organization [facility] Adult Address [address] [place] [address]- Care Team Providers Care Deputy Of Counter Intelligence Name Role Phone Terrie Kruger NP Primary Care Physician [place] [facility] [place]s): 03/18/21 - 04/17/21 [facility] Adult [address] [place] [address]- Allergies, Adverse Reactions, Alerts Substance Reaction Severity Status codeine Active aspirin Active Haldol Active NSAIDs Active PROzac Active TraMADol Hydrochloride Activ e Immunizations Given and Recorded Vaccine Date Status Refusal Reason SARS-CoV-2 (COVID-19) Ad26 vaccine 1 02/15/21 Give n Influenza Virus Vaccine (oldterm) 06/11/20 Recorde d 1Result Comment: [facility] [id number] Medications Albuterol (Eqv-ProAir HFA) 90 mcg/inh inhalation [...] opioid drug. Start Date: 04/02/21 Status: Ordered benztropine 1 mg oral tablet 1 mg, 1, tablet, By Mouth, Daily at bedtime, # 7 tablet, Refills 4, Tot. Refills 4, Maintenance, 04/09/21 11:42:00 EDT, Route to Pharmacy Electronically, [facility] [id number], [...] Maintenance, 04/09/21 11:42:00 EDT, Patch, [facility], [...] EDT, Route to Pharmacy Electronically, [id number], Partialfill upon patient request if the prescription is fo... Start Date: 04/09/21 Stop Date: 05/14/21 Status: Ordered SEROquel 25 mg oral tablet 50 mg, 2, tablet, By Mouth, 2 times a day, # 28 tablet, Refills 4, Tot. Refills 4, Maintenance, 04/09/21 11:42:00 EDT, Route to Pharmacy Electronically, [id number], [...] Maintenance, 04/09/21 11:43:00 EDT, Tablet, [id number], [...]
--- OUTSIDE RECORDS SUMMARY | 2023-03-30 13:58 | XMS_ITS | Continuity of Care Document ---
Author Name Unknown Organization [facility] Adult Address [address] [place] [address]- Care Team Providers Care Clinical Trials Data Coordinator Name Role Phone Not on Staff, PCP Primary Care Physician Unavail able Encounter [facility] Date(s): 07/09/21 - 08/08/21 [facility] [address] [place] [address]- Allergies, Adverse Reactions, Alerts Substance Reaction Severity Status codeine Active aspirin Active Haldol Active NSAIDs Active PROzac Active TraMADol Hydrochloride Activ e Immunizations Given and Recorded Vaccine Date Status Refusal Reason tetanus/diphtheria/pertussis, acel(Tdap) 1 05/14/21 Given SARS-CoV-2 (COVID-19) Ad26 vaccine 2 02/15/21 Give n Influenza Virus Vaccine (oldterm) 06/11/20 Recorde d 1Result Comment: [facility] [place] 2] [id number] 2Result Comment: [facility] [place] 2] [id number] Medications Albuterol (Eqv-ProAir HFA) 90 mcg/inh inhalation [...] Acute 04/29/22 13:01:00 EDT, 04/28/21 12:59:00 EDT, [place], [id number], Partial fill upon patient reque... Start Date: 04/28/21 Stop Date: 04/29/22 Status: Ordered benztropine 1 mg oral tablet 1 mg, 1, tablet, By Mouth, Daily at bedtime, # 30 tablet, Refills 0, Tot. Refills 0, Maintenance, 04/28/21 12:55:00 EDT, Route to Pharmacy Electronically, [id number], Partial fill upon patient request if the prescription is for... Start Date: 04/28/21 Status: Ordered benztropine 1 mg oral tablet 1 mg, 1, tablet, By Mouth, Daily at bedtime, # 7 tablet, Refills 4, Tot. Refills 4, Maintenance, 04/09/21 11:42:00 EDT, Route to Pharmacy Electronically, [id number], Partial fill upon patient request if the [...] 05/17/21 9:33:00 EDT, Route to Pharmacy Electronically, [facility], Partial fill upon patient request if [...] Maintenance, 04/09/21 11:42:00 EDT, Patch, [id number], Partial fill upon patient request if the [...] 13:34:00 EST, 07/09/21 13:34:00 EST, ER Tablet, [facility], Partial fill upon patient request if [...] tablet, Refills 2, Route to Pharmacy Electronically, [facility], 174.4, cm, 07/30/21 13:48:00 EST, Height, [...] Mouth, Daily, # 30 tablet, 5 Refills, [facility], 174.4, cm, 07/30/21 13:48:00 EST, Height, [...]
--- OUTSIDE RECORDS SUMMARY | 2023-03-30 13:58 | XMS_ITS | Continuity of Care Document ---
Author Name Unknown Organization [facility] Address [address] [place] [address]- Care Team Providers Care Public Interviewer Name Role Phone Not on Staff, PCP Primary Care Physician Unavail able [facility]counter [facility] Date(s): 10/20/22 - 11/26/22 [facility] [address] [place], [place] [address] Attending Physician: Yevgeniy ÁLVAREZ, Polly Kapoor Allergies, Adverse Reactions, Alerts Substance Reaction Severity Status codeine Active aspirin Active TraMADol Hydrochloride Activ e Haldol Active PROzac Active Immunizations Given and Recorded Vaccine Date Status Refusal Reason [id number] bivalent booster vax 06/21/22 Recorded tetanus/diphtheria/pertussis, acel(Tdap) 1 05/14/21 Given SARS-CoV-2 (COVID-19) Ad26 vaccine 2 02/15/21 Give n Influenza Virus Vaccine (oldterm) 06/11/20 Recorde d 1Result Comment: [facility] [id number] 2Result Comment: [facility] [id number] Medications duloxetine 30 mg oral enteric coated capsule 1 capsule = 30 mg, By Mouth, 2 times a day, # 60 capsule, 1 Refills, Maintenance, 11/08/22 11:26:00EDT, EC Capsule, [facility], Partial fill upon patient request if [...] Care Team Personnel Name: Mahendra Maria Position: [facility] RN Supv Member Role: Primary Care Nurse Name: Jeni Solorio RN Position: S RN Member Role: Primary Care Nurse Name: Rebekah Delatorre RN Position: [facility] RN Member Role: Primary Care Nurse Name: Sandi Hightower RN Position: [facility] RN Member Role: Primary Care Nurse Name: Angelita Almeida RN Position: [facility] RN Member Role: Primary Care Nurse Name: Not on Staff, PCP Position: [facility] Physician (General Medicine) Member Role: PCP Care Team Related Persons Name: AIDA DEWEY Address: [place] [address] Name: SHANNON CARLIN
--- OUTSIDE RECORDS SUMMARY | 2023-03-30 13:58 | XMS_ITS | Continuity of Care Document ---
Author Name Unknown Organization [facility] ter Address [address] [place] [address]- Care Team Providers Care Software Reliability Engineer Name Role Phone Terrie Kruger NP Primary Care Physician [place] [facility] [facility] [id number] Date(s): 10/15/21 - 10/15/[address] [address]- Encounter Diagnosis Left shoulder strain(Final) - 10/15/21 Discharge Disposition: A-D/C Home Attending Physician: Kirill Gallardo MD Admitting Physician: Kirill Gallardo MD Referring Physician: Not on Staff, Referring MD Allergies, Adverse Reactions, Alerts Substance Reaction Severity Status codeine Active aspirin Active TraMADol Hydrochloride Activ e PROzac Active Haldol Active NSAIDs Active Immunizations Given and Recorded Vaccine Date Status Refusal Reason tetanus/diphtheria/pertussis, acel(Tdap) 1 05/14/21 Given SARS-CoV-2 (COVID-19) Ad26 vaccine 2 02/15/21 Give n Influenza Virus Vaccine (oldterm) 06/11/20 Recorde d 1Result Comment: [facility] [id number] 2Result Comment: [facility] [id number] Medications Albuterol (Eqv-ProAir HFA) 90 mcg/inh inhalation [...] Acute 04/29/22 13:01:00 EDT, 04/28/21 12:59:00 EDT, [place], [facility], Partial fill upon patient reque... Start Date: 04/28/21 Stop Date: 04/29/22 Status: Ordered benztropine 1 mg oral tablet 1 mg, 1, tablet, By Mouth, Daily at bedtime, # 30 tablet, Refills 0, Tot. Refills 0, Maintenance, 04/28/21 12:55:00 EDT, Route to Pharmacy Electronically, [id number], Partial fill upon patient request if the prescription is for... Start Date: 04/28/21 Status: Ordered benztropine 1 mg oral tablet 1 mg, 1, tablet, By Mouth, Daily at bedtime, # 7 tablet, Refills 4, Tot. Refills 4, Maintenance, 04/09/21 11:42:00 EDT, Route to Pharmacy Electronically, [id number], Partial fill upon patient request [...] 05/17/21 9:33:00 EDT, Route to Pharmacy Electronically, [facility], Partial fill upon patient request if [...] 08/09/21 13:33:00 EST, Route to Pharmacy Electronically, [facility]... Start Date: 08/09/21 Stop Date: 08/23/21 Status: Ordered cyclobenzaprine 10 mg oral tablet 10 mg, 1, tablet, By Mouth, 3 times a day, PRN, # 15 tablet, Refills 0, Tot. Refills 0, Acute 10/22/21 18:08:00 EST, for spasm, 10/15/21 18:08:00 EST, Route to Pharmacy Electronically, [facility], Partial fill upon patient request if the pre... Start Date: 10/15/21 Stop Date: 10/22/21 Status: Ordered hydrocortisone 2.5% topical ointment 1 application, Topically, 2 times a day, # 20 Gm, 0 Refills, Maintenance, 04/02/21 11:07:00 EDT, Ointment, Partial fill upon patient request if the prescription is for a schedule II opioid drug. Start Date: 04/02/21 Status: Ordered lidocaine 5% topical film See Instructions, Topically Daily, # 10 patch, 0 Refills, Maintenance, 04/09/21 11:42:00 EDT, Patch, [id number], Partial fill upon patient request [...] opioid drug. Start Date: 04/02/21 Status: Ordered Medrol 4 mg oral tablet 1 pack/packet, By Mouth, Once, # 21 tablet, 0 Refills, Soft Stop, 08/09/21 13:32:00 EST, Tablet, [facility], Partial fill upon patient [...] opioid drug. Start Date: 04/02/21 Status: Ordered oxyCODONE 5 mg oral capsule 1 or 2, By Mouth, Every 6 hours, PRN Pain , Moderate, # 12 capsule, 0 Refills, Maintenance, 10/15/21 18:06:00 EST, Capsule, [facility], Partial fill upon patient request if the prescriptionis for a schedule II opioid drug., 174.4, cm, 07/30... Start Date: 10/15/21 Status: Ordered OxyCODONE IR Tablet 5 mg, Tablet, By Mouth, Once, STAT, 10/15/21 17:58:00 EST, Stop date 10/15/21 17:58:00 EST Start Date: 10/15/21 Stop Date: 10/15/21 Status: Completed ProAir HFA 90 mcg/inh inhalation aerosol 1 puffs, Inhalation, 4 times a day, PRN as needed for wheezing, # 1 each, 0 Refills, Maintenance, 08/09/21 13:32:00 EST, Aerosol, [facility], Partial fill upon patient request if the prescription is for a schedule II opioid drug., 1 puffs In... Start Date: 08/09/21 Stop Date: 09/08/21 Status: Ordered QUEtiapine 100 mg oral tablet 1, tablet, By Mouth, Daily at bedtime, # 30 tablet, Refills 2, Route to Pharmacy Electronically, [facility], 174.4, cm, 07/30/21 13:48:00 EST, Height, [...] Mouth, Daily, # 30 tablet, 5 Refills, [facility], 174.4, cm, 07/30/21 13:48:00 EST, Height, 118.9, kg, 04/03/21 4:55:00 EDT, Dry Weight Start Date: 07/30/21 Status: Ordered Problem List Condition Effective Dates Status Health Status Inform ant Asthma(Confirmed) Active HTN (hypertension)(Confirmed) Active Fibrodysplasia ossificans congenita(Confirmed) Active Herniated lumbar interverteb ral disc(Confirmed) Active Results Radiology Reports * Exam Date Time Procedure Performing Provider Status 10/15/21 5:29 PM Shoulder Min 2 Views Left Ira Burroughs ra; Auth (Verified) Notes: (Shoulder Min 2 Views Left) Reason For Exam: with Pain;Trauma RESULT: Shoulder Min 2 Views Left Shoulder Min 2 Views Left, 3 views Hx of Present Illness: reports L shoulder pain after cleaning 3 days ago, also reports some intermittent CP x2 weeks.; Reason: Trauma; with Pain; Clinical Question(s): Fracture; Special Instructions:This is a protocol film and radiologist should call any findings to the Charge Nurse COMPARISON: None. FINDINGS: No fracture or dislocation. A nail is seen overlying the left humeral head due to tendinopathy repair. No arthritic change of the glenohumeral joint. Normal AC joint and portions of the clavicle included on the exam. No calcification of the rotator cuff. IMPRESSION: No acute fracture or dislocation. WSN: [id number] Ordering Physician: Iván Jones Dictated By: Vijay Aguilar MD Dictated Date/Time: 10/15/21 5:58 pm Reviewed By: Vijay Aguilar MD Signed By: Vijay Aguilar MD Signed Date/Time: 10/15/21 5:58 pm Transcribed By: CALEB Transcribed Date/Time: 10/15/21 5:58 pm Vital Signs Most recent to oldest [Reference Range]: 1 2 Oxygen Saturation [94-100 %] 99 % (10/15/21 6:23 PM) 99 % (10/15/21 4:57 PM) Pulse Rate [55-90 bpm] 86 bpm (10/15/21 6:23 PM) Blood Pressure [90-138/55-84 mm Hg] 178/ 110mm Hg *H* (10/15/21 6:23 PM) 180/106mm Hg *H* (10/15/21 4:57 PM) Respiratory Rate [16-30 br/min] 16 br/mi n (10/15/21 6:12 PM) Temperature [96.8-100.4 DegF] 98.1 DegF (10/15/21 6:23 PM) 98.4 DegF (10/15/21 4:57 PM) Mode of Delivery (Oxygen) Room air (10/15/21 6:23 PM) Room air (10/15/21 4:57 PM) Blood pressure sites Arm, left (10/15/21 6:23 PM) Arm, right (10/15/21 4:57 PM) Temperature Route Oral (10/15/21 6:23 PM) Oral (10/15/21 4:57 PM) Social History Social History Type Response Smoking Status 5-9 cigarettes (betw een 1/4 to 1/2 pack)/day in last 30 days; Other: 4 / day now; entered on: 02/15/21 Sex
--- OUTSIDE RECORDS SUMMARY | 2023-03-30 13:58 | XMS_ITS | Continuity of Care Document ---
Author Name Unknown Organization [facility] Address [address] [place] [address]- Care Team Providers Care Caddymaster Name Role Phone Terrie Kruger NP Primary Care Physician Encounter [facility] [place] Date(s): 07/30/20 - 08/29/20 [facility] [address] [place] [address]- Allergies, Adverse Reactions, Alerts Substance Reaction Severity [...] 0 Refills, Maintenance, 06/24/20 16:06:00 EDT, Tablet, [facility]-, 131.2, kg, 05/31/20 10:53:00 EDT, Dry Weight Start Date: 06/24/20 Stop Date: 07/08/20 Status: Ordered Lexapro 10 mg oral tablet 0.5 tablet = 5 mg, By Mouth, Daily, # 7 tablet, 0 Refills, Maintenance, 06/24/20 16:05:00 EDT, Tablet, [facility]-, 131.2, kg, 05/31/20 10:53:00 EDT, [...] 11 Refills, Maintenance, 07/20/20 8:44:00 EST, Inhaler, [facility], 2 puffs Inhalation Every 4hours,PRN:Wheezing/Shortness of Breath, [...]
--- OUTSIDE RECORDS SUMMARY | 2023-03-30 13:58 | XMS_ITS | Continuity of Care Document ---
Author Name Unknown Organization [facility] Address [address] [place] [address]- Care Team Providers Care Hot Billet Shear Operator Name Role Phone Terrie Kruger NP Primary Care Physician [phone] Encounter [facility] [place] Date(s): 06/15/20 - 06/22/20 [facility] [address] [place] [address]- [facility] Encounter Diagnosis Asthma(Discharge Diagnosis) - 06/15/20 HTN (hypertension)(Discharge Diagnosis) - 06/15/20 Herniated lumbar intervertebral disc(Discharge Diagnosis) - 06/15/20 Attending Physician: Terrie Kruger NP Allergies, Adverse [...] Status Clinical Service Informant Asthma Discharge Diagnosis 06/15/20 HTN (hypertension) Discharge Diagnosis 06/15/20 Herniated lumbar intervertebral disc Discharge Diagnosis 06/15/20 Procedures Procedure Date Related Diagnosis Body Site Status Gallbladder absent Comple nini Hip arthroplasty 1 Comple nini Hysterectomy 2 Completed Right ovarian cyst 3 Comp leted 1R 2With cervix removed ovaries remain 3Surgical removal Social History Social History Type Response Smoking Status 5-9 cigarettes (betw een 1/4 to 1/2 pack)/day in last 30 days; Other: 1/2 PPD started at 14; entered on: 06/15/20 Sex
--- OUTSIDE RECORDS SUMMARY | 2023-03-30 13:58 | XMS_ITS | Continuity of Care Document ---
Author Name Unknown Organization [facility] Address [address] [place] [address]- Care Team Providers Care .Net Programmer Name Role Phone Yevgeniy ÁLVAREZ, Polly Kapoor Primary Care Physician [place] [facility] [place] Date(s): 02/01/23 - 03/03/23 [facility] [address] [place], [place] [address] Allergies, Adverse Reactions, Alerts Substance Reaction Severity Status codeine Active aspirin Active Haldol Active PROzac Active TraMADol Hydrochloride Activ e Immunizations Given and Recorded Vaccine Date Status Refusal Reason [id number] bivalent booster vax 06/21/22 Recorded tetanus/diphtheria/pertussis, acel(Tdap) 1 05/14/21 Given SARS-CoV-2 (COVID-19) Ad26 vaccine 2 02/15/21 Give n Influenza Virus Vaccine (oldterm) 06/11/20 Recorde d 1Result Comment: [facility] [id number] 2Result Comment: [facility] [id number] Medications amLODIPine 5 mg oral tablet 0 [...] 1 Refills, Maintenance, 11/08/22 11:26:00EDT, EC Capsule, [facility], Partial fill upon patient request if [...] 1 Refills, Maintenance, 02/27/23 15:17:00 EDT, ECCcristhian, [facility], Partial fill upon patient request if [...] Care Team Personnel Name: Mahendra Maria Position: [facility] RN Supv Member Role: Primary Care Nurse Name: Jeni Solorio RN Position: S RN Member Role: Primary Care Nurse Name: Rebekah Delatorre RN Position: S RN Member Role: Primary Care Nurse Name: Polly Vuong MD, V Position: [facility] Physician - Primary Care Member Role: PCP Address: Address: [address] [place] [address] Name: Sandi Hightower RN Position: S RN Member Role: Primary Care Nurse Name: Angelita Almeida RN Position: S RN Member Role: Primary Care Nurse Care Team Related Persons Name: KEY DEWEY Name: AIDA DEWEY Address: [place] [address] Name: CARLIN ORTEGA
--- OUTSIDE RECORDS SUMMARY | 2023-03-30 13:58 | XMS_ITS | Continuity of Care Document ---
Author Name Unknown Address [address] [place] [address] Phone Organization [facility] Address [address] [place] [address] Phone Care Team Providers Care Sew On Operator Name Role Phone Pcp-None, MD Álvarez Primary Care Provider Unavailbraeden e Pcp-None, MD Álvarez Family Provider Unavailable MD Sam Velez Emergency Provider [email or web address] Complaint and Reason for Visit Chief Complaint LLQ ABD PAIN Allergies, Adverse Reactions, Alerts Allergen Type Severity Reaction Last Updated Verified Status aspirin Allergy Unknown Unknown December 20 12:18pm Yes Active codeine Allergy Unknown Unknown December 20 12:18pm Yes Active fluoxetine Allergy Unknown Unknown December 20 12:19pm Yes Active haloperidol Allergy Unknown Unknown December 20, 2 022 12:18pm Yes Active NSAIDS (Non-Steroidal Anti-Inflamma Allergy Unknown Unknown December 20, 2021 12:19pm Yes Active tramadol Allergy Unknown Unknown December 20 12:19pm Yes Active Social History Smoking Status Status Start Date End Date Date of Observa tion Never smoked tobacco (finding) December 20, 2021 12:27pm Observation Status Date of Observation Not December 20, 2021 Additional Data Assigned Sex Female Problems Active Problems Medical Problem Onset Date Status Abdominal pain Active Procedures Procedure Date Performed Status CT abdomen pelvis wo con December 20, 2021 12:31p m completed EKG ED Electrocardiogram December 20, 2021 1:57pm active EKG ED Electrocardiogram December 20, 2021 1:58pm active Relevant Diagnostic Tests and/or Laboratory Data Laboratory Results Test Date/Time Result Interpretation Reference Range Result Comment Performing Site White Blood Count December 20, 2021 12:45pm 4.2 X10 3/uL 4.5-11.0 [address] [place] [address] Red Blood Count December 20, 2021 12:45pm 4.45 X10 6/uL 3.70-5.00 [address] [place] [address] Hemoglobin December 20, 2021 12:45pm 12.8 g/dl 11.0-16.0 [address] [place] [address] Hematocrit December 20, 2021 12:45pm 40.1 % 34.0-45.0 [address] [place] [address] Mean Corpuscular Volume December 20, 2021 12:45pm 90.1 fl 80.0-100.0 [address] [place] [address] Mean Corpuscular Hemoglobin December 20, 2021 12:45pm 28.8 pg 27.0-34.[address] [place] [address] Mean Corpuscular Hemoglobin Concent December 20, 2021 12:45pm 31.9 g/dl 31.0-36.0 [address] [place] [address] Red Cell Distribution Width December 20, 2021 12:45pm 13.8 % 11.5-15.[address] [place] [address] Platelet Count December 20, 2021 12:45pm 276 X10 3/uL 150-[address] [place] [address] Immature Granulocyte % (Auto) December 20, 2021 12:45pm 0.5 % [address] [place] [address] Neutrophils (%) (Auto) December 20, 2021 12:45pm 46.2 % [address] [place] [address] Lymphocytes (%) (Auto) December 20, 2021 12:45pm 39.2 % [address] [place] [address] Monocytes (%) (Auto) December 20, 2021 12:45pm 10.1 % [address] [place] [address] Eosinophils (%) (Auto) December 20, 2021 12:45pm 3.3 % [address] [place] [address] Basophils (%) (Auto) December 20, 2021 12:45pm 0.7 % [address] [facility] [address] Immature Granulocyte # (Auto) December 20, 2021 12:45pm 0.02 X10 3/uL 0.00-0.09 [address] [facility] [address] Neutrophils # (Auto) December 20, 2021 12:45pm 2.0 X10 3/uL 1.5-7.8 [address] [facility] [address] Lymphocytes # (Auto) December 20, 2021 12:45pm 1.7 X10 3/uL 1.0-4.8 [address] [facility] [address] Monocytes # (Auto) December 20, 2021 12:45pm 0.4 X10 3/uL 0.0-0.8 200 [facility] [address] Eosinophils # (Auto) December 20, 2021 12:45pm 0.1 X10 3/uL 0.0-0.5 [address] [facility] [address] Basophils # (Auto) December 20, 2021 12:45pm 0.0 X10 3/uL 0.0-0.2 [address] [facility] [address] Nucleated Red Blood Cells % December 20, 2021 12:45pm 0.0 /100 WBC 0.0-0.0 200 [facility] [address] Urine Color December 20, 2021 1:10pm Yellow Yellow [address] [facility] [address] Urine Clarity December 20, 2021 1:10pm Clear Clear [address] [facility] [address] Urine pH December 20, 2021 1:10pm 7.0 5.0-8.0 [address] [facility] [address] Urine Specific Drexel December 20, 2021 1:10pm 1.010 1.003-1.030 [address] [facility] [address] Urine Blood December 20, 2021 1:10pm Negative mg/dl Negative [address] [facility] [address] Urine Protein December 20, 2021 1:10pm Negative mg/dl Negative [address] [place] [address] Urine Glucose (UA) December 20, 2021 1:10pm Negative mg/dl Negative [address] [place] [address] Urine Ketones December 20, 2021 1:10pm Negative mg/dl Negative [address] [place] [address] Urine Nitrate December 20, 2021 1:10pm Negative Negative [address] [place] [address] Urine Bilirubin December 20, 2021 1:10pm Negative mg/dl Negative [address] [place] [address] Urine Urobilinogen December 20, 2021 1:10pm Normal mg/dl Normal 200 [facility] [address] Urine Leukocyte Esterase December 20, 2021 1:10pm Negative Negative [address] [place] [address] Sodium Level December 20, 2021 4:00pm 135 mmol/L 137-146 [address] [place] [address] Potassium Level December 20, 2021 4:00pm 5.3 mmol/L 3.5-5.3 [address] [place] [address] Chloride Level December 20, 2021 4:00pm 104 mmol/L 98-107 [address] [place] [address] Carbon Dioxide Level December 20, 2021 4:00pm 22 mmol/L 23-32 [address] [place] [address] Anion Gap December 20, 2021 4:00pm 9 mmol/L 5-15 [address] [place] [address] Blood Urea Nitrogen December 20, 2021 12:45pm 29 mg/dl 5-25 [address] [place] [address] Creatinine December 20, 2021 12:45pm 1.1 mg/dL 0.5-1.1 [address] [place] [address] Estimated Creatinine Clearance December 20, 2021 12:45pm 89.0 ml/min This value is calculated by Cockcroft Gault Equation using ideal body weight. This result is dependent on an accurate patient height and weight which is obtained from patients medical record. Young HoyosW. and M.HOlaf Jamison. Prediction of creatinine clearance from serum creatinine. Nephron. 1975. 16(1):31-41. 200 [facility] [address] Estimated GFR () December 20, 2021 12:45pm 70 >60 200 [facility] [address] Estimated GFR (Non- December 20, 2021 12:45pm 61 >[address] [address] BUN/Creatinine Ratio December 20, 2021 12:45pm 26.4 10.0-20.[address] [address] Glucose Level December 20, 2021 12:45pm 102 mg/dL 70-[address] [address] Calcium Level December 20, 2021 12:45pm 9.7 mg/dl 8.6-10.[address] [address] Diagnostic Imaging Reports Report Dictated Date/Time Dictated By Status Radiology Report December 20, 2021 1:37pm Tyrell Cabrera MD completed [address] [address] Patient Name: Murali Dewey Medical Record#: [id number] Address: [address] [place] [address] City/State/[place] [address]: Jon Velez MD Insurance: [facility] Re quired /Age/Sex: 1975/45/F Medicare A&B Admit/Reg Date: 12/20/[address]: Sam Velez MD Location: [place]/ PCP: PcpMd HENRI Moreno Date of Service: 12/20/21 Order (s): CT abdomen pelvis wo con CPT Code: 11109 Report Number: [id number] Reason for Exam: llq ap CLINICAL HISTORY: Abdominal pain. llq pain COMPARISON: None TECHNIQUE noncontrast computed tomography of the abdomen and pelvis was obtained from the lung bases to the iliac symphysis pubis. CT Dose reduction technique: One or more the following dose reduction techniques were utilized: Automated exposure control; Adjustment of the MVA and/or KVP according to patient's size; Use of the iterative reconstruction technique. FINDINGS: Liver: No focal hepatic lesion. Gallbladder: Cholecystectomy. No biliary ductal dilatation Pancreas: No pancreatic ductal dilatation Adrenal glands: No adrenal nodule Spleen: No splenomegaly Kidneys: No hydronephrosis or nephrolithiasis Retroperitoneum: No significant adenopathy. No collection. No free air Gastrointestinal tract: Moderate amount of fecal matter is seen in the colon. No evidence of appendicitis. Normal appendix. Pelvis: No urinary bladder wall thickening Bones: No lytic lesion in the bones. IMPRESSION: No acute abdominal process identified Moderate amount of fecal matter in the colon which can be correlated with history of constipation Dictated By: Tyrell Cabrera MD 12/20/211336 Signed By: Tyrell Cabrera MD 12/20/21 135 TD/TT: 12/20/211336Tech: [id number] cc: KIM; XIAO* Sam Velez MD; Pcp-MD Eusebio Vital Signs Vital Reading Result Reference Range Collection Date/Time Height 175.26 cm December 20 12:19pm Weight 118.84 kg December 20 12:19pm Body Temperature 98.2 [degF] 97.6-99.6 December 20, 2021 12:19pm Heart Rate 79 /min 60-90 December 20 12:19pm Respiratory rate 18 /min -December 20, 2021 12:19pm Oxygen saturation by Pulse oximetry 99 % 95-100 December 20, 2021 12: 19pm BP Systolic 138 mm[Hg] 90-140 December 20 12:19pm BP Diastolic 78 mm[Hg] 60-90 December 20 12:19pm BMI (Body Mass Index) 38.7 kg/m2 December 20, 2021 12:19pm Advance Directives Advance Directive Response Recorded Date/ Time Advance Directives No December 20 022 12:39pm Health Care Proxy No December 20 12:39pm Insurance Providers Guarantor Murali Dewey Address [address] [place] [address] Contact Info. Home Phone: Payer Policy Id Coverage Id Subscriber's Name Subscriber Id Effective Date Expiration Date NHP (Medicaid) [id number] [facility] Required [id number] Murali Dewey [id number] Medicare A&B [id number] Murali Dewey [id number] Self Pay Self N/A Encounters Encounter Location(s) Arrival/Admit Date Discharge/Depart Date Provider(s) Departed Emergency -Emergency Department December 20, 2021 12:16pm December 20, 2021 5:19pm null Plan of Treatment Future Tests Future scheduled test information is unavailable Pending Tests Pending diagnostic test information is unavailable Future Visits Future appointment information is unavailable Referrals to Other Providers Reason for Referral Referral Start Date Provider Provider Contact Information Provider Address Pcp-None , Md ÁLVAREZ Future Procedures Future procedure information is unavailable Future Medications Future medication information is unavailable Patient Instructions ED Abdominal Pain Unkn Cause Fem Goals Acute Goals The cause of your abdominal pain was uncertain. Apparently your diagnosed with an ovarian cyst at an outside hospital. No additional findings were seen on the CT scan today. Your potassium level initially seemed high though there were no EKG changes, after IV fluids your potassium level is normal. Your kidney function was normal.
--- NOTE | 2023-03-30 16:55 | PC.ADMIT ---
pt is a 47 year old female who presented to [facility] with SI and left lung pain. pt tox screen was positive for cocaine, THC and benzos. pt was just discharged from [facility] last week. during admission, pt signed all legals and answered all questions. pt complained about lung pain. pt has a PMH of PTSD, substance use disorder, and major depressive disorder.
[2023-03-30] MEDS: Perphenazine 8 MG TABLET PO (17:08)
[2023-03-30] MEDS: Acetaminophen 325 MG TABLET 650 MG PO (17:17)
[2023-03-30 17:47] VITALS: BP 120/57; PULSE 98; TEMP 36.6; O2SAT 99
[2023-03-30] MEDS: Capsaicin 0.025% Cream 60 GM TUBE 1 APPL TOPICAL (19:02)
--- NOTE | 2023-03-30 19:30 | P.CONHOSP_ITS ---
History of Present Illness Data of Consult Service Date: 03/30/23 Primary Care Provider: Unknown Physician [facility] Reason for consult: Admission H&P Pt is a 47-year-old female with a PMH significant for?HTN, fibromyalgia, asthma, fibro dysplasia, schizophrenia, PTSD, bipolar disorder, polysubstance abuse, and history of PE 2 years prior no longer on anticoagulation who is admitted to [facility] psychiatry unit for increasing anxiety and depression with SI. Patient was just released from inpatient psychiatric stay on 03/27/2023 in order to attend her brother's in [place]. However apparently will not be until later next week. Patient presented to [facility] ED with SI. Medical consult for admission H&P. ?Patient continues to complain of chronic bilateral knee and back pain. Also continues to complain of inspiratory upper right pleuritic chest pain. Patient also has a pruritic rash on her right elbow. Complains of chronic periumbilical pain. Review of Systems Review of Systems: Negative except for that stated in the HPI [facility] Medical History Asthma HTN (hypertension) BUZZ (iron deficiency anemia) Polysubstance abuse Polysubstance use disorder PTSD (post-traumatic stress disorder) Schizoaffective disorder, bipolar type Social History Household Members: None Housing: Apartment Patient Tobacco Use Status: Current everyday Tobacco user Tobacco use type: Cigarette Smoked in Last 30 Days: Yes e-Cigarette/Vaping Use: Currently Using Patient Interested in Nicotine Replacement: Yes (patch and gum) Patient Given Instructions on How to Stop Smoking: No Second Hand Smoke Exposure: No Use of substances other than those prescribed or required for medical reasons: Yes Substance Use Type: Crack/Cocaine and Marijuana Substance Use Frequency: Chronic Longstanding Last Used Substance: Just Prior to Admission Currently Displaying Signs/Symptoms of Drug Intoxication Withdrawal: No Any prior treatment program specific to substance use: No Have you been hit, kicked, punched, or otherwise hurt by someone within the past year? If so, by whom?: No Do you feel safe in your current relationship?: No Current Relationship Is there a partner from a previous relationship who is making you feel unsafe now?: No Are you made to feel afraid or neglected: No Advance Directives: No Advance Directives Information Provided: No Do you have thoughts of harming others: None Do you have a plan to hurt others: No Plan Recently lost weight without trying: No How much weight loss: Not applicable Eating poorly because of decreased appetite: No Nutrition screen score: 0 Nutrition Risks: No Nutritional Risk Patient : No : No Poor oral hygiene: No service: No Sexual orientation: Straight/Heterosexual Meds Allergies Allergy/AdvReac Type Severity Reaction Status Date / Time aspirin Allergy Unknown Unknown Verified 03/07/23 13:44 codeine Allergy Unknown Unknown Verified 03/07/23 13:44 haloperidol [From Haldol] Allergy Unknown Unknown Verified 03/07/23 13:44 NSAIDS (Non-Steroidal Allergy Unknown Unknown Verified 03/07/23 13:44 Anti-Inflamma risperidone [From Risperdal] Allergy Unknown Unknown Verified 03/07/23 13:44 tramadol Allergy Unknown Unknown Verified 03/07/23 13:44 trazodone Allergy Unknown Unknown Verified 03/07/23 13:44 prozac Allergy Unknown Unknown Uncoded 03/07/23 13:44 Active Medications: Current Medications Acetaminophen (Acetaminophen 325 Mg Tablet) 650 mg PO Q6H PRN PRN Reason: Headache/Pain Mild Scale (1-3) Last Admin: 03/30/23 17:17 Dose: 650 mg Al Hydroxide/Mg Hydroxide (Magnesium Hydrox/Alum Hydrox 30 Ml Oral.Susp) 30 ml PO Q6H PRN PRN Reason: Heartburn/Nausea Albuterol Sulfate (Albuterol Sulfate 90 Mcg 8 Gm Inhaler) 2 puff INHALE RQ4H PRN PRN Reason: wheeze Amlodipine Besylate (Amlodipine Besylate 5 Mg Tablet) 5 mg PO DAILY [facility]; Protocol Benztropine Mesylate (Benztropine Mesylate 0.5 Mg Tablet) 0.5 mg PO BID PRN PRN Reason: EPS Calcium Carbonate/Cholecalciferol (Calcium + Vitamin D 250 Mg Tablet) 250 mg PO DAILY [facility] Capsaicin (Capsaicin 0.025% Cream 60 Gm Tube) 1 appl TOPICAL QID PRN; Protocol PRN Reason: Pain, Mild (Pain Scale 1-3) Last Admin: 03/30/23 19:02 Dose: 1 appl Clonazepam (Clonazepam 1 Mg Tablet) 2 mg PO BEDTIME [facility] Cyanocobalamin (Cyanocobalamin (Vitamin B-12) 1,000 Mcg Tablet) 1,000 mcg PO DAILY [facility] Divalproex Sodium (Divalproex Sodium Er 500 Mg Tab.Er.24h) 500 mg PO BEDTIME [facility] Docusate Sodium (Docusate Sodium 100 Mg Capsule) 100 mg PO BID PRN PRN Reason: constipation Duloxetine HCl (Duloxetine Hcl 60 Mg Capsule.Dr) 60 mg PO DAILY [facility] Fluticasone/Vilanterol (Fluticasone/Vilanterol 100/25 Blst.W.Dev) 1 puff INHALE RDAILY [facility] Folic Acid (Folic Acid 1 Mg Tablet) 1 mg PO DAILY [facility] Gabapentin (Gabapentin 300 Mg Capsule) 300 mg PO BEDTIME [facility] Hydroxyzine HCl (Hydroxyzine Hcl 25 Mg Tablet) 25 mg PO Q6H PRN PRN Reason: Anxiety Loratadine (Loratadine 10 Mg Tablet) 10 mg PO DAILY [facility] Magnesium Hydroxide (Milk Of Magnesia 30 Ml Oral.Susp) 30 ml PO DAILY PRN PRN Reason: Constipation Mirtazapine (Mirtazapine 30 Mg Tablet) 30 mg PO BEDTIME [facility] Montelukast Sodium (Montelukast Sodium 10 Mg Tablet) 10 mg PO BEDTIME [facility] Multivitamins/Vitamin C (Multivitamin Tablet) 1 tab PO DAILY [facility] Omeprazole (Omeprazole 40 Mg Capsule.Dr) 40 mg PO DAILY@0630 [facility] Perphenazine (Perphenazine 8 Mg Tablet) 8 mg PO TID [facility] Last Admin: 03/30/23 17:08 Dose: 8 mg Prazosin HCl (Prazosin Hcl 5 Mg Capsule) 5 mg PO BEDTIME [facility]; Protocol Propranolol HCl (Propranolol Hcl 10 Mg Tablet) 10 mg PO BID [facility]; Protocol Quetiapine Fumarate (Quetiapine Fumarate 400 Mg Tablet) 400 mg PO BEDTIME [facility] Quetiapine Fumarate (Quetiapine Fumarate 50 Mg Tablet) 50 mg PO DAILY [facility] Quetiapine Fumarate (Quetiapine Fumarate 50 Mg Tablet) 50 mg PO BID PRN PRN Reason: agitation, anxiety Thiamine HCl (Thiamine Hcl 100 Mg Tablet) 100 mg PO DAILY [facility] Home Medications Medication Instructions Recorded Confirmed Last Taken Type amlodipine 5 mg tablet 5 mg PO DAILY 03/07/23 03/30/23 Unknown History docusate sodium 100 mg capsule 100 mg PO BID 03/07/23 03/30/23 Unknown History fluticasone furoate 100 1 inh inhalation DAILY 03/07/23 03/30/23 Unknown History mcg-vilanterol 25 mcg/dose inhalation powder (Breo Ellipta) formoterol fumarate 20 mcg/2 mL 20 mcg inhalation BID 03/07/23 03/30/23 Unknown History solution for nebulization loratadine 10 mg tablet 10 mg PO DAILY 03/07/23 03/30/23 Unknown History methocarbamol 750 mg tablet 750 mg PO DAILY 03/07/23 03/30/23 Unknown History montelukast 10 mg tablet 10 mg PO DAILY 03/07/23 03/30/23 Unknown History pantoprazole 40 mg tablet,delayed 40 mg PO DAILY 03/07/23 03/30/23 Unknown History release propranolol 10 mg tablet 10 mg PO BID 03/07/23 03/30/23 Unknown History Physical Exam Vital Signs and Narrative: Vital Signs: Last Vital Signs Temp 97.8 F 03/30/23 17:47 Pulse 98 03/30/23 17:47 BP 120/57 L 03/30/23 17:47 Pulse Ox 99 03/30/23 17:47 O2 Del Method Room Air 03/30/23 17:47 General: AOx3, no acute distress Resp: CTA bilaterally CVS: S1, S2, RRR GI: +BS, no distention, perioumbilical pain Skin: Rough, scaly plaque on extensor surface of right elbow Neuro: Cranial nerves II-XII grossly intact bilaterally. Motor grossly intact bilaterally Extremities: No edema. Bilateral knee pain. Psych: Appropriate affect Assessment and Plan (1) Routine history and physical examination of adult: Status: Acute Plan Pt is a 47-year-old female with a PMH significant for?HTN, fibromyalgia, asthma, fibro dysplasia, schizophrenia, PTSD, bipolar disorder, polysubstance abuse, and history of PE 2 years prior no longer on anticoagulation who is admitted to [facility] psychiatry unit for increasing anxiety and depression with SI. Mood disorder Plan as per psychiatry Bilateral knee pain Acetaminophen, lidocaine patches on knees for pain management Ice knees as necessary Pt will need to f/u outpatient with ortho for cortisone shots and additional treatment Weight loss encouraged Given pt's history of polysubstance abuse and apparent allergies to aspirin, NSAIDS, and tramadol, do not feel comfortable prescribing opioids and will defer to psychiatry for pain management Right sided-pleuritic chest pain Patient was treated for pneumonia during last admission Most recent chest x-ray showed very slight right basilar atelectasis, likely a result from previous pneumonia Patient has had multiple negative D-dimers, little concern for PE Encourage deep breathing exercises Incentive spirometry Rash on right elbow Apply Eucerin lotion bid COPD Not in acute exacerbation Coninue home inhalers HTN Continue home meds Thank you for allowing us to participate in the care of this patient. Signing off at this time. Please let us know if there are any acute complaints or questions. Time Spent With Patient Time: Total time managing care of this patient today ____ minutes.
[2023-03-30] MEDS: Prazosin HCL 5 MG CAPSULE PO (19:34)
[2023-03-30] MEDS: Mirtazapine 30 MG TABLET PO (19:34)
[2023-03-30] MEDS: Gabapentin 300 MG CAPSULE PO (19:34)
[2023-03-30] MEDS: Propranolol HCL 10 MG TABLET PO (19:34)
[2023-03-30] MEDS: QUEtiapine Fumarate 400 MG TABLET PO (19:35)
[2023-03-30] MEDS: Divalproex Sodium ER 500 MG TAB.ER.24H PO (19:35)
[2023-03-30] MEDS: Montelukast Sodium 10 MG TABLET PO (19:35)
[2023-03-30] MEDS: clonazePAM 1 MG TABLET 2 MG PO (19:35)
[2023-03-30] MEDS: hydrOXYzine HCL 25 MG TABLET PO (19:54)
[2023-03-30] MEDS: Lidocaine 4 % Patch ADH..PATCH 2 PATCH TRANSDERMA (20:39)
[2023-03-31] MEDS: Acetaminophen 325 MG TABLET 650 MG PO ×2 (06:39→14:55)
[2023-03-31] MEDS: Omeprazole 40 MG CAPSULE.DR PO (06:39)
[2023-03-31 08:06] VITALS: BP 127/71; PULSE 96; RESP 16; TEMP 36.5; O2SAT 96
[2023-03-31] MEDS: Propranolol HCL 10 MG TABLET PO ×2 (08:50→19:44)
[2023-03-31] MEDS: Multivitamin TABLET 1 TAB PO (08:50)
[2023-03-31] MEDS: Thiamine HCL 100 MG TABLET PO (08:51)
[2023-03-31] MEDS: Calcium + Vitamin D 250 MG TABLET PO (08:51)
[2023-03-31] MEDS: Loratadine 10 MG TABLET PO (08:51)
[2023-03-31] MEDS: amLODIPine Besylate 5 MG TABLET PO (08:51)
[2023-03-31] MEDS: DULoxetine HCl 60 MG CAPSULE.DR PO (08:51)
[2023-03-31] MEDS: QUEtiapine Fumarate 50 MG TABLET PO ×3 (08:51→16:23)
[2023-03-31] MEDS: Folic Acid 1 MG TABLET PO (08:51)
[2023-03-31] MEDS: Cyanocobalamin (Vitamin B-12) 1,000 MCG TABLET 1000 MCG PO (08:51)
[2023-03-31] MEDS: Perphenazine 8 MG TABLET PO ×3 (08:51→19:45)
[2023-03-31] MEDS: Capsaicin 0.025% Cream 60 GM TUBE 1 APPL TOPICAL (08:55)
[2023-03-31 10:03] LABS: Alanine Aminotransferase 27 U/L (0-31); Albumin Level 3.6 g/dL (3.5-5.0); Alkaline Phosphatase 94 U/L (39-117); Anion Gap 14 (12-20); Aspartate Amino Transferase 15 U/L (5-31); Bilirubin Total 0.3 mg/dL (0.0-1.0); Blood Urea Nitrogen 22 mg/dL (9-16); Calcium 8.9 mg/dL (8.4-10.2); Carbon Dioxide 23 mmol/L (22-29); Chloride 106 mmol/L (96-108); Cholesterol 244 mg/dL; Estimated Glomerular Filt Rate > 60; Glucose Fasting 84 mg/dL (60-99); HDL Cholesterol 46 mg/dL; LDL Cholesterol Calculated 163 mg/dl; Potassium 4.6 mmol/L (3.3-5.1); Sodium 138 mmol/L (135-145); Total Protein 6.8 g/dL (6.5-8.0); Triglycerides 179 mg/dL
[2023-03-31 11:19] VITALS: BP 127/71; PULSE 96; O2SAT 96
[2023-03-31] MEDS: hydrOXYzine HCL 25 MG TABLET PO (16:23)
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
[2023-03-31 18:00] VITALS: BP 113/67; PULSE 99; RESP 18
[2023-03-31] MEDS: Prazosin HCL 5 MG CAPSULE PO (19:45)
[2023-03-31] MEDS: clonazePAM 1 MG TABLET 2 MG PO (19:45)
[2023-03-31] MEDS: QUEtiapine Fumarate 400 MG TABLET PO (19:45)
[2023-03-31] MEDS: Mirtazapine 30 MG TABLET PO (19:45)
[2023-03-31] MEDS: Gabapentin 300 MG CAPSULE PO (19:45)
[2023-03-31] MEDS: Divalproex Sodium ER 500 MG TAB.ER.24H PO (19:45)
[2023-03-31] MEDS: Montelukast Sodium 10 MG TABLET PO (19:45)
[2023-03-31] MEDS: Nicotine Polacrilex 2 MG GUM 4 MG BUCCAL (19:47)
[2023-04-01] MEDS: Omeprazole 40 MG CAPSULE.DR PO (06:16)
[2023-04-01 10:09] VITALS: BP 120/62; PULSE 98; RESP 16; TEMP 36.1; O2SAT 97
[2023-04-01] MEDS: Multivitamin TABLET 1 TAB PO (10:14)
[2023-04-01] MEDS: Thiamine HCL 100 MG TABLET PO (10:14)
[2023-04-01] MEDS: DULoxetine HCl 60 MG CAPSULE.DR PO (10:14)
[2023-04-01] MEDS: Propranolol HCL 10 MG TABLET PO ×2 (10:14→20:47)
[2023-04-01] MEDS: Calcium + Vitamin D 250 MG TABLET PO (10:15)
[2023-04-01] MEDS: Perphenazine 8 MG TABLET PO ×3 (10:15→20:47)
[2023-04-01] MEDS: amLODIPine Besylate 5 MG TABLET PO (10:15)
[2023-04-01] MEDS: Folic Acid 1 MG TABLET PO (10:15)
[2023-04-01] MEDS: Cyanocobalamin (Vitamin B-12) 1,000 MCG TABLET 1000 MCG PO (10:15)
[2023-04-01] MEDS: Lidocaine 4 % Patch ADH..PATCH 2 PATCH TRANSDERMA (10:16)
[2023-04-01] MEDS: QUEtiapine Fumarate 50 MG TABLET PO ×2 (10:41→18:38)
[2023-04-01] MEDS: Fluticasone/Vilanterol 100/25 BLST.W.DEV 1 PUFF INHALE (11:34)
[2023-04-01] MEDS: Nicotine Polacrilex 2 MG GUM 4 MG BUCCAL (11:34)
[2023-04-01] MEDS: Loratadine 10 MG TABLET PO (11:51)
[2023-04-01] MEDS: Albuterol Sulfate 90 MCG 8 GM INHALER 2 PUFF INHALE (11:52)
[2023-04-01] MEDS: methocarbamoL 500 MG TABLET PO (14:40)
[2023-04-01] MEDS: Acetaminophen 325 MG TABLET 650 MG PO (15:07)
[2023-04-01] MEDS: Capsaicin 0.025% Cream 60 GM TUBE 1 APPL TOPICAL (15:07)
[2023-04-01] MEDS: hydrOXYzine HCL 25 MG TABLET PO (18:37)
--- NOTE | 2023-04-01 18:54 | P.PNPSI_ITS ---
Subjective Subjective Date of Service: 04/01/23 Reason For Visit: F43.10 PTSD F33.2 Major depressive Subjective Notes: Conditional Voluntary Healthcare Proxy: No Guardianship: No Medical Problems Affecting Mental Status: No Interim History: Pt seen, discussed with team, plans were reviewed with pt. Pt reports she slept, denies SI. Reports sciatic pain, asking for pain medication. Reports that PCP appt this past week did not prescribe any pain meds for her, but encouraged PT. Medication Compliance: Yes Side effects from medications: No Attending Groups: Intermittent Review of Systems Acute medical concerns: No Medical Review of Systems: unchanged Mental Status Exam Mental Status Exam Patient Appearance: Appropriate Patient Orientation: Person, Place, Time and Situation Level of Consciousness: Alert Patient Behavior: Talkative Mood Description: Depressed, Labile and Angry Affect Description: Labile Patient Cognition Impaired: No Ability to Follow Directions: Good Speech Pattern: Spontaneous Speech Memory Description: Episodic Impaired Hallucinations: None Delusions: Not Present Perceptual Disturbances: Depersonalization and Derealization Thought Process: Rumination Thought Content: positive for Circumstantial, positive for Suicidal Ideation and positive for Homicidal Ideation Depressive Symptoms: Feelings of Worthlessness, Hopelessness, Low Self Esteem and Difficulty Concentrating Abnormal Motor Activity Signs and Symptoms: Restlessness Judgement: Good Diagnostics Vital Signs (24Hr): Vital Signs - 24 hr 04/01/23 10:09 Temperature 97.0 F Pulse Rate 98 Respiratory Rate 16 Blood Pressure 120/62 Pulse Oximetry 97 Oxygen Delivery Method Room Air Labs 03/31/23 08:32 Labs: Laboratory Results - last 48 hr 03/31/23 08:32 Sodium 138 Potassium 4.6 Chloride 106 Carbon Dioxide 23 Anion Gap 14 BUN 22 H Creatinine 0.89 Estim Creat Clear Calc TNP Estimated GFR > 60 Fasting Glucose 84 Calcium 8.9 D Total Bilirubin 0.3 AST 15 ALT 27 Alkaline Phosphatase 94 Total Protein 6.8 Albumin 3.6 Triglycerides 179 Cholesterol 244 LDL Cholesterol, Calc 163 HDL Cholesterol 46 Medications Medications Current Medications Acetaminophen (Acetaminophen 325 Mg Tablet) 650 mg PO Q6H PRN PRN Reason: Headache/Pain Mild Scale (1-3) Last Admin: 04/01/23 15:07 Dose: 650 mg Al Hydroxide/Mg Hydroxide (Magnesium Hydrox/Alum Hydrox 30 Ml Oral.Susp) 30 ml PO Q6H PRN PRN Reason: Heartburn/Nausea Albuterol Sulfate (Albuterol Sulfate 90 Mcg 8 Gm Inhaler) 2 puff INHALE RQ4H PRN PRN Reason: wheeze Last Admin: 04/01/23 11:52 Dose: 2 puff Amlodipine Besylate (Amlodipine Besylate 5 Mg Tablet) 5 mg PO DAILY [facility]; Protocol Last Admin: 04/01/23 10:15 Dose: 5 mg Benztropine Mesylate (Benztropine Mesylate 0.5 Mg Tablet) 0.5 mg PO BID PRN PRN Reason: EPS Calcium Carbonate/Cholecalciferol (Calcium + Vitamin D 250 Mg Tablet) 250 mg PO DAILY [facility] Last Admin: 04/01/23 10:15 Dose: 250 mg Capsaicin (Capsaicin 0.025% Cream 60 Gm Tube) 1 appl TOPICAL QID PRN; Protocol PRN Reason: Pain, Mild (Pain Scale 1-3) Last Admin: 04/01/23 15:07 Dose: 1 appl Clonazepam (Clonazepam 1 Mg Tablet) 2 mg PO BEDTIME [facility] Last Admin: 03/31/23 19:45 Dose: 2 mg Cyanocobalamin (Cyanocobalamin (Vitamin B-12) 1,000 Mcg Tablet) 1,000 mcg PO DAILY [facility] Last Admin: 04/01/23 10:15 Dose: 1,000 mcg Divalproex Sodium (Divalproex Sodium Er 500 Mg Tab.Er.24h) 500 mg PO BEDTIME [facility] Last Admin: 03/31/23 19:45 Dose: 500 mg Docusate Sodium (Docusate Sodium 100 Mg Capsule) 100 mg PO BID PRN PRN Reason: constipation Duloxetine HCl (Duloxetine Hcl 60 Mg Capsule.Dr) 60 mg PO DAILY [facility] Last Admin: 04/01/23 10:14 Dose: 60 mg Fluticasone/Vilanterol (Fluticasone/Vilanterol 100/25 Blst.W.Dev) 1 puff INHALE RDAILY [facility] Last Admin: 04/01/23 11:34 Dose: 1 puff Folic Acid (Folic Acid 1 Mg Tablet) 1 mg PO DAILY [facility] Last Admin: 04/01/23 10:15 Dose: 1 mg Gabapentin (Gabapentin 300 Mg Capsule) 300 mg PO BEDTIME [facility] Last Admin: 03/31/23 19:45 Dose: 300 mg Hydroxyzine HCl (Hydroxyzine Hcl 25 Mg Tablet) 25 mg PO Q6H PRN PRN Reason: Anxiety Last Admin: 04/01/23 18:37 Dose: 25 mg Lidocaine (Lidocaine 4 % Patch Adh..Patch) 2 patch TRANSDERMA DAILY [facility]; Protocol Last Admin: 04/01/23 10:16 Dose: 2 patch Loratadine (Loratadine 10 Mg Tablet) 10 mg PO DAILY [facility] Last Admin: 04/01/23 11:51 Dose: 10 mg Magnesium Hydroxide (Milk Of Magnesia 30 Ml Oral.Susp) 30 ml PO DAILY PRN PRN Reason: Constipation Methocarbamol (Methocarbamol 500 Mg Tablet) 500 mg PO TID PRN PRN Reason: Muscle Spasm Last Admin: 04/01/23 14:40 Dose: 500 mg Mirtazapine (Mirtazapine 30 Mg Tablet) 30 mg PO BEDTIME [facility] Last Admin: 03/31/23 19:45 Dose: 30 mg Montelukast Sodium (Montelukast Sodium 10 Mg Tablet) 10 mg PO BEDTIME [facility] Last Admin: 03/31/23 19:45 Dose: 10 mg Multi-Ingred Cream/Lotion/Oil/Oint (Mineral Oil/Petrolatum,White 106 Gm Tube) 1 appl TOPICAL BID [facility]; Protocol Last Admin: 04/01/23 10:15 Dose: Not Given Multivitamins/Vitamin C (Multivitamin Tablet) 1 tab PO DAILY [facility] Last Admin: 04/01/23 10:14 Dose: 1 tab Nicotine (Nicotine 21 Mg Patch.Td24) 21 mg TRANSDERMA DAILY [facility] Last Admin: 04/01/23 10:16 Dose: Not Given Nicotine Polacrilex (Nicotine Polacrilex 2 Mg Gum) 4 mg BUCCAL Q2H PRN PRN Reason: Nicotine Cravings Last Admin: 04/01/23 11:34 Dose: 4 mg Omeprazole (Omeprazole 40 Mg Capsule.Dr) 40 mg PO DAILY@0630 [facility] Last Admin: 04/01/23 06:16 Dose: 40 mg Perphenazine (Perphenazine 8 Mg Tablet) 8 mg PO TID [facility] Last Admin: 04/01/23 15:07 Dose: 8 mg Prazosin HCl (Prazosin Hcl 5 Mg Capsule) 5 mg PO BEDTIME [facility]; Protocol Last Admin: 03/31/23 19:45 Dose: 5 mg Propranolol HCl (Propranolol Hcl 10 Mg Tablet) 10 mg PO BID [facility]; Protocol Last Admin: 04/01/23 10:14 Dose: 10 mg Quetiapine Fumarate (Quetiapine Fumarate 400 Mg Tablet) 400 mg PO BEDTIME [facility] Last Admin: 03/31/23 19:45 Dose: 400 mg Quetiapine Fumarate (Quetiapine Fumarate 50 Mg Tablet) 50 mg PO DAILY [facility] Last Admin: 04/01/23 10:16 Dose: 50 mg Quetiapine Fumarate (Quetiapine Fumarate 50 Mg Tablet) 50 mg PO BID PRN PRN Reason: agitation, anxiety Last Admin: 04/01/23 18:38 Dose: 50 mg Thiamine HCl (Thiamine Hcl 100 Mg Tablet) 100 mg PO DAILY [facility] Last Admin: 04/01/23 10:14 Dose: 100 mg Trolamine Salicylate (Trolamine Salicylate 10 % Cream 85 Gm Tube) 1 appl TOPICAL BID PRN PRN Reason: pain Allergies Allergies Allergy/AdvReac Type Severity Reaction Status Date / Time aspirin Allergy Unknown Unknown Verified 03/07/23 13:44 codeine Allergy Unknown Unknown Verified 03/07/23 13:44 haloperidol [From Haldol] Allergy Unknown Unknown Verified 03/07/23 13:44 NSAIDS (Non-Steroidal Allergy Unknown Unknown Verified 03/07/23 13:44 Anti-Inflamma risperidone [From Risperdal] Allergy Unknown Unknown Verified 03/07/23 13:44 tramadol Allergy Unknown Unknown Verified 03/07/23 13:44 trazodone Allergy Unknown Unknown Verified 03/07/23 13:44 prozac Allergy Unknown Unknown Uncoded 03/07/23 13:44 Assessment & Plan Assessment & Plan (1) PTSD (post-traumatic stress disorder): Status: Acute Code(s): F43.10 - Post-traumatic stress disorder, unspecified (2) Schizoaffective disorder, bipolar type: Status: Acute Code(s): F25.0 - Schizoaffective disorder, bipolar type (3) Polysubstance use disorder: Status: Acute Code(s): F19.90 - Other psychoactive substance use, unspecified, uncomplicated Plan 47 yo female, readmit after discharge earlier this week with SI HI. Aftercare, Out patient planning in place prior to earlier discharge. Plan: Re-establish regime Diagnostics as needed Full milieu to address grief, SI, HI [facility] will meet with pt on the unit 04/03 11am per pt's socially responsible investment adviser, Jeni GARCÍA. Continue to work with pt on her sorting through housing issues 04/01/23 Pt reporting pain Aspercreme, Flexeril or Robaxin prn Informed Consent: understands Reason for continued inpatient stay Substantial Risk for: rapid decompensation Time Spent With Patient Time: Total time managing care of this patient today ____ minutes.
[2023-04-01 20:00] VITALS: BP 126/60; PULSE 94; RESP 20; TEMP 36.1; O2SAT 95
[2023-04-01] MEDS: QUEtiapine Fumarate 400 MG TABLET PO (20:45)
[2023-04-01] MEDS: Montelukast Sodium 10 MG TABLET PO (20:45)
[2023-04-01] MEDS: Divalproex Sodium ER 500 MG TAB.ER.24H PO (20:45)
[2023-04-01] MEDS: clonazePAM 1 MG TABLET 2 MG PO (20:45)
[2023-04-01] MEDS: Prazosin HCL 5 MG CAPSULE PO (20:46)
[2023-04-01] MEDS: Cyclobenzaprine HCl 10 MG TABLET PO (20:46)
[2023-04-01] MEDS: Mirtazapine 30 MG TABLET PO (20:46)
[2023-04-01] MEDS: Gabapentin 300 MG CAPSULE PO (20:47)
[2023-04-02] MEDS: Omeprazole 40 MG CAPSULE.DR PO (05:07)
[2023-04-02 10:30] VITALS: BP 136/97; PULSE 97; RESP 18; TEMP 36.3; O2SAT 100
[2023-04-02] MEDS: Thiamine HCL 100 MG TABLET PO (10:38)
[2023-04-02] MEDS: Propranolol HCL 10 MG TABLET PO ×2 (10:38→20:46)
[2023-04-02] MEDS: Nicotine Polacrilex 2 MG GUM 4 MG BUCCAL ×2 (10:38→20:49)
[2023-04-02] MEDS: Multivitamin TABLET 1 TAB PO (10:38)
[2023-04-02] MEDS: Calcium + Vitamin D 250 MG TABLET PO (10:38)
[2023-04-02] MEDS: Folic Acid 1 MG TABLET PO (10:39)
[2023-04-02] MEDS: DULoxetine HCl 60 MG CAPSULE.DR PO (10:39)
[2023-04-02] MEDS: Loratadine 10 MG TABLET PO (10:39)
[2023-04-02] MEDS: Perphenazine 8 MG TABLET PO ×3 (10:39→20:46)
[2023-04-02] MEDS: amLODIPine Besylate 5 MG TABLET PO (10:39)
[2023-04-02] MEDS: Mineral Oil/Petrolatum,White 106 GM Tube 1 APPL TOPICAL (10:39)
[2023-04-02] MEDS: Cyanocobalamin (Vitamin B-12) 1,000 MCG TABLET 1000 MCG PO (10:39)
[2023-04-02] MEDS: Lidocaine 4 % Patch ADH..PATCH 2 PATCH TRANSDERMA (10:40)
[2023-04-02] MEDS: Fluticasone/Vilanterol 100/25 BLST.W.DEV 1 PUFF INHALE (10:40)
[2023-04-02] MEDS: QUEtiapine Fumarate 50 MG TABLET PO ×2 (10:51→15:48)
[2023-04-02] MEDS: Albuterol Sulfate 90 MCG 8 GM INHALER 2 PUFF INHALE (10:51)
[2023-04-02] MEDS: Acetaminophen 325 MG TABLET 650 MG PO (10:57)
[2023-04-02] MEDS: Trolamine Salicylate 10 % Cream 85 GM TUBE 1 APPL TOPICAL (12:01)
[2023-04-02] MEDS: guaiFENesin 100 MG/5 ML LIQUID PO ×2 (12:02→20:49)
[2023-04-02] MEDS: clonazePAM 0.5 MG TABLET PO ×2 (12:02→22:36)
[2023-04-02] MEDS: Cyclobenzaprine HCl 10 MG TABLET PO ×2 (15:48→20:49)
[2023-04-02] MEDS: hydrOXYzine HCL 25 MG TABLET PO (15:48)
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
--- NOTE | 2023-04-02 18:46 | P.EN_ITS ---
Event Note Date of Service: 04/02/23 Event Note: Consult placed to evaluate URI symptoms including productive cough with bragg sputum production, rhinorrhea, dyspnea on exertion that improves with albuterol inhaler. There are also myalagias. No fevers, chills, sore thoat, abd pain, n/v, lightheadedness, headaches, or chest pain. She did recently travel. During last admission, was diagnosed with RLL pneumonia and treated with cefturoxime and doxycycline. States symptoms did improve and then worsening more recently. While at [facility], WBC was normal at 4.2. She has been afebrile. CXR ordered by psychiatry showed subtle right basilar opacity which could be atelectasis vs infectious process. Appears unchanged. At this time, given patient is afebrile and lungs are clear, recommend checking respiratory viral panel. Will also check CBC to evaluate for leukocytosis and procalcitonin. Recommend holding off on antib iotics at this time as I have low suspicion for acute pneumonia given patient was treated with abx 3 weeks at and abnormal chest cxr appears similar to priors without any worsening of opacity. Time Spent With Patient Time: Total time managing care of this patient today ____ minutes.
[2023-04-02 19:15] LABS: MANUAL DIFF FLAG NO
[2023-04-02 19:19] LABS: Basophils Percent Auto 0.6 % (0-2); Eosinophils Absolute Auto 0.1 X10*3/uL (0.0-0.4); Eosinophils Percent Auto 2.7 % (0-4); Hematocrit 31.6 % (37.0-47.0); Hemoglobin 10.1 g/dl (12.0-16.0); Imm Gran Pct Auto 2.1 % (0.0-0.4); Lymphocytes Absolute Auto 1.8 X10*3/uL (1.2-4.9); Lymphocytes Percent Auto 36.6 % (20-40); Mean Corpuscular Hemoglobin 28.5 pg (27.0-33.0); Mean Corpuscular Volume 89.3 fL (80.0-98.0); Mean Platelet Volume 8.8 fL (9.4-12.3); Monocytes Absolute Auto 0.6 X10*3/uL (0.1-1.2); Monocytes Percent Auto 11.4 % (2-11); Neutrophils Absolute Auto 2.3 x10*3/uL (2.0-8.3); Neutrophils Percent Auto 46.6 % (45-73); Platelet Count 232 X10*3/uL (160-400); Red Blood Count 3.54 X10*6/uL (4.20-5.50); Red Cell Distribution Width 13.9 % (11.0-16.0); White Blood Count 4.8 X10*3/uL (4.8-10.8)
[2023-04-02 19:58] LABS: Procalcitonin 0.03 ng/mL
[2023-04-02 20:05] VITALS: BP 136/74; PULSE 68; RESP 16; TEMP 36.4; O2SAT 96
[2023-04-02] MEDS: clonazePAM 1 MG TABLET 2 MG PO (20:45)
[2023-04-02] MEDS: guaiFENesin DM 600/30 1 TAB TAB.ER.12H PO (20:45)
[2023-04-02] MEDS: Prazosin HCL 5 MG CAPSULE PO (20:45)
[2023-04-02] MEDS: Gabapentin 300 MG CAPSULE PO (20:46)
[2023-04-02] MEDS: QUEtiapine Fumarate 400 MG TABLET PO (20:46)
[2023-04-02] MEDS: Montelukast Sodium 10 MG TABLET PO (20:46)
[2023-04-02] MEDS: Mirtazapine 30 MG TABLET PO (20:46)
[2023-04-03] MEDS: Omeprazole 40 MG CAPSULE.DR PO (06:16)
[2023-04-03 08:00] VITALS: BP 134/64; PULSE 99; RESP 18; TEMP 36.2; O2SAT 97
[2023-04-03] MEDS: amLODIPine Besylate 5 MG TABLET PO (08:31)
[2023-04-03] MEDS: Cyanocobalamin (Vitamin B-12) 1,000 MCG TABLET 1000 MCG PO (08:31)
[2023-04-03] MEDS: DULoxetine HCl 60 MG CAPSULE.DR PO (08:32)
[2023-04-03] MEDS: Thiamine HCL 100 MG TABLET PO (08:32)
[2023-04-03] MEDS: Divalproex Sodium 250 MG TABLET.DR PO (08:32)
[2023-04-03] MEDS: Multivitamin TABLET 1 TAB PO (08:32)
[2023-04-03] MEDS: Loratadine 10 MG TABLET PO (08:32)
[2023-04-03] MEDS: Perphenazine 8 MG TABLET PO ×3 (08:32→20:39)
[2023-04-03] MEDS: Folic Acid 1 MG TABLET PO (08:33)
[2023-04-03] MEDS: Calcium + Vitamin D 250 MG TABLET PO (08:33)
[2023-04-03] MEDS: Propranolol HCL 10 MG TABLET PO ×2 (08:33→20:39)
[2023-04-03] MEDS: QUEtiapine Fumarate 50 MG TABLET PO ×2 (08:33→17:43)
[2023-04-03] MEDS: Nicotine Polacrilex 2 MG GUM 4 MG BUCCAL (08:44)
[2023-04-03] MEDS: clonazePAM 0.5 MG TABLET PO ×2 (08:45→17:12)
[2023-04-03] MEDS: Cyclobenzaprine HCl 10 MG TABLET PO ×2 (08:45→20:40)
[2023-04-03] MEDS: Trolamine Salicylate 10 % Cream 85 GM TUBE 1 APPL TOPICAL ×2 (08:46→21:11)
[2023-04-03] MEDS: Acetaminophen 325 MG TABLET 650 MG PO ×2 (08:46→17:12)
[2023-04-03] MEDS: Fluticasone Propionate Nasal 16 GM SPRAY 1 SPRAY NOSTRIL-B (11:02)
[2023-04-03] MEDS: Albuterol Sulfate 90 MCG 8 GM INHALER 2 PUFF INHALE ×2 (11:02→21:11)
[2023-04-03] MEDS: Lidocaine 4 % Patch ADH..PATCH 2 PATCH TRANSDERMA (11:03)
[2023-04-03] MEDS: hydrOXYzine HCL 25 MG TABLET PO (12:58)
--- NOTE | 2023-04-03 17:11 | HO.PSYCHPN ---
Subjective Subjective Date of Service: 04/03/23 Reason For Visit: F43.10 PTSD F33.2 Major depressive Subjective Notes: Conditional Voluntary Interim History: Pt reports not feeling well. She continues to report abdominal pain, for which GI specialist prescribed bentyl but pt declines. Pt encouraged to take it regularly. Pt denies SI/HI. Pt seen by hospitalist- chest xr ray finding atelectasis versus infection but no active s/s no fever, no SOB, no cough, no congestion. No behavioral concerns. Review of Systems Review of Systems Negative except for that stated in the HPI Constitutional: Reports no additional constitutional complaints Eyes: Reports no additional eye complaints Reports system reviewed and no additional complaints, except as documented Cardiovascular: Reports no additional cardiovascular complaints Respiratory: Reports no additional respiratory complaints Gastrointestinal: Reports no additional gastrointestinal complaints Musculoskeletal: Reports other (knee pain) Skin/Breast: Reports system reviewed and no additional complaints, except as docu Reports system reviewed and no additional complaints, except as documented Psychiatric: Reports anxiety, Reports depression, Reports irritability, Reports mood swings, Reports homicidal ideation and Reports suicidal ideation Endocrine: Reports no additional endocrine complaints Hematologic/Lymphatic: Reports no additional hematologic/lymphatic complaints Allergic/Immunologic: Reports no additional allergic/immunologic complaints Mental Status Exam Mental Status Exam Patient Appearance: Appropriate Patient Orientation: Person, Place, Time and Situation Level of Consciousness: Alert Patient Behavior: Talkative Mood Description: Depressed, Labile and Angry Affect Description: Labile Patient Cognition Impaired: No Ability to Follow Directions: Good Speech Pattern: Spontaneous Speech Memory Description: Episodic Impaired Diagnostics Vital Signs (24Hr): Vital Signs - 24 hr 04/02/23 20:05 04/03/23 08:00 Temperature 97.6 F 97.1 F Pulse Rate 68 99 Respiratory Rate 16 18 Blood Pressure 136/74 134/64 Pulse Oximetry 96 97 Oxygen Delivery Method Room Air Room Air Labs 04/02/23 19:12 03/31/23 08:32 Labs: Laboratory Results - last 48 hr 04/02/23 04/02/23 19:12 19:14 WBC 4.8 RBC 3.54 L Hgb 10.1 L Hct 31.6 L MCV 89.3 MCH 28.5 MCHC 32.0 RDW 13.9 Plt Count 232 MPV 8.8 L Immature Gran % (Auto) 2.1 H Neut % (Auto) 46.6 Lymph % (Auto) 36.6 [place] % (Auto) 11.4 H Eos % (Auto) 2.7 Baso % (Auto) 0.6 Lymph # (Auto) 1.8 [place] # (Auto) 0.6 Eos # (Auto) 0.1 Baso # (Auto) 0.0 Abs Immat Gran (auto) 0.10 H Absolute Neuts (auto) 2.3 Absolute Nucleated RBC 0.000 Nucleated RBC % (auto) 0.0 Procalcitonin 0.03 Imaging Radiology Impressions: ITS Impressions Chest X-Ray 04/02/23 13:40 IMPRESSION: Subtle right basilar opacity, similar to prior exam, which may represent atelectasis or infectious process. Medications Medications Current Medications Acetaminophen (Acetaminophen 325 Mg Tablet) 650 mg PO Q6H PRN PRN Reason: Headache/Pain Mild Scale (1-3) Last Admin: 04/03/23 08:46 Dose: 650 mg Al Hydroxide/Mg Hydroxide (Magnesium Hydrox/Alum Hydrox 30 Ml Oral.Susp) 30 ml PO Q6H PRN PRN Reason: Heartburn/Nausea Albuterol Sulfate (Albuterol Sulfate 90 Mcg 8 Gm Inhaler) 2 puff INHALE RQ4H PRN PRN Reason: wheeze Last Admin: 04/03/23 11:02 Dose: 2 puff Amlodipine Besylate (Amlodipine Besylate 5 Mg Tablet) 5 mg PO DAILY [facility]; Protocol Last Admin: 04/03/23 08:31 Dose: 5 mg Benztropine Mesylate (Benztropine Mesylate 0.5 Mg Tablet) 0.5 mg PO BID PRN PRN Reason: EPS Calcium Carbonate/Cholecalciferol (Calcium + Vitamin D 250 Mg Tablet) 250 mg PO DAILY [facility] Last Admin: 04/03/23 08:33 Dose: 250 mg Capsaicin (Capsaicin 0.025% Cream 60 Gm Tube) 1 appl TOPICAL QID PRN; Protocol PRN Reason: Pain, Mild (Pain Scale 1-3) Last Admin: 04/01/23 15:07 Dose: 1 appl Clonazepam (Clonazepam 1 Mg Tablet) 2 mg PO BEDTIME [facility] Last Admin: 04/02/23 20:45 Dose: 2 mg Clonazepam (Clonazepam 0.5 Mg Tablet) 0.5 mg PO BID PRN PRN Reason: Anxiety Last Admin: 04/03/23 08:45 Dose: 0.5 mg Cyanocobalamin (Cyanocobalamin (Vitamin B-12) 1,000 Mcg Tablet) 1,000 mcg PO DAILY [facility] Last Admin: 04/03/23 08:31 Dose: 1,000 mcg Cyclobenzaprine HCl (Cyclobenzaprine Hcl 10 Mg Tablet) 10 mg PO BID PRN PRN Reason: Pain, Severe (Pain Scale 7-10) Last Admin: 04/03/23 08:45 Dose: 10 mg Divalproex Sodium (Divalproex Sodium 250 Mg Tablet.) 250 mg PO DAILY [facility] Stop: 04/05/23 21:00 Last Admin: 04/03/23 08:32 Dose: 250 mg Docusate Sodium (Docusate Sodium 100 Mg Capsule) 100 mg PO BID PRN PRN Reason: constipation Duloxetine HCl (Duloxetine Hcl 60 Mg Capsule.) 60 mg PO DAILY [facility] Last Admin: 04/03/23 08:32 Dose: 60 mg Fluticasone Propionate (Fluticasone Propionate Nasal 16 Gm [place]) 1 spray NOSTRIL-B DAILY [facility] Last Admin: 04/03/23 11:02 Dose: 1 spray Fluticasone/Vilanterol (Fluticasone/Vilanterol 100/25 Blst.W.Dev) 1 puff INHALE RDAILY [facility] Last Admin: 04/03/23 11:14 Dose: Not Given Folic Acid (Folic Acid 1 Mg Tablet) 1 mg PO DAILY [facility] Last Admin: 04/03/23 08:33 Dose: 1 mg Gabapentin (Gabapentin 300 Mg Capsule) 300 mg PO BEDTIME [facility] Last Admin: 04/02/23 20:46 Dose: 300 mg Guaifenesin (Guaifenesin 100 Mg/5 Ml Liquid) 5 ml PO Q4H PRN PRN Reason: Cough Last Admin: 04/02/23 20:49 Dose: 5 ml Guaifenesin/Dextromethorphan (Guaifenesin Dm 600/30 1 Tab Tab.Er.12h) 1 tab PO BID PRN PRN Reason: Cough Last Admin: 04/02/23 20:45 Dose: 1 tab Hydroxyzine HCl (Hydroxyzine Hcl 25 Mg Tablet) 25 mg PO Q6H PRN PRN Reason: Anxiety Last Admin: 04/03/23 12:58 Dose: 25 mg Lidocaine (Lidocaine 4 % Patch Adh..Patch) 2 patch TRANSDERMA DAILY [facility]; Protocol Last Admin: 04/03/23 11:03 Dose: 2 patch Loratadine (Loratadine 10 Mg Tablet) 10 mg PO DAILY [facility] Last Admin: 04/03/23 08:32 Dose: 10 mg Magnesium Hydroxide (Milk Of Magnesia 30 Ml Oral.Susp) 30 ml PO DAILY PRN PRN Reason: Constipation Mirtazapine (Mirtazapine 30 Mg Tablet) 30 mg PO BEDTIME [facility] Last Admin: 04/02/23 20:46 Dose: 30 mg Montelukast Sodium (Montelukast Sodium 10 Mg Tablet) 10 mg PO BEDTIME [facility] Last Admin: 04/02/23 20:46 Dose: 10 mg Multi-Ingred Cream/Lotion/Oil/Oint (Mineral Oil/Petrolatum,White 106 Gm Tube) 1 appl TOPICAL BID [facility]; Protocol Last Admin: 04/03/23 11:03 Dose: Not Given Multivitamins/Vitamin C (Multivitamin Tablet) 1 tab PO DAILY [facility] Last Admin: 04/03/23 08:32 Dose: 1 tab Nicotine (Nicotine 21 Mg Patch.Td24) 21 mg TRANSDERMA DAILY [facility] Last Admin: 04/03/23 09:29 Dose: Not Given Nicotine Polacrilex (Nicotine Polacrilex 2 Mg Gum) 4 mg BUCCAL Q2H PRN PRN Reason: Nicotine Cravings Last Admin: 04/03/23 08:44 Dose: 4 mg Omeprazole (Omeprazole 40 Mg Capsule.Dr) 40 mg PO DAILY@0630 [facility] Last Admin: 04/03/23 06:16 Dose: 40 mg Perphenazine (Perphenazine 8 Mg Tablet) 8 mg PO TID [facility] Last Admin: 04/03/23 14:46 Dose: 8 mg Prazosin HCl (Prazosin Hcl 5 Mg Capsule) 5 mg PO BEDTIME [facility]; Protocol Last Admin: 04/02/23 20:45 Dose: 5 mg Propranolol HCl (Propranolol Hcl 10 Mg Tablet) 10 mg PO BID [facility]; Protocol Last Admin: 04/03/23 08:33 Dose: 10 mg Quetiapine Fumarate (Quetiapine Fumarate 400 Mg Tablet) 400 mg PO BEDTIME [facility] Last Admin: 04/02/23 20:46 Dose: 400 mg Quetiapine Fumarate (Quetiapine Fumarate 50 Mg Tablet) 50 mg PO DAILY [facility] Last Admin: 04/03/23 08:33 Dose: 50 mg Quetiapine Fumarate (Quetiapine Fumarate 50 Mg Tablet) 50 mg PO BID PRN PRN Reason: agitation, anxiety Last Admin: 04/02/23 15:48 Dose: 50 mg Thiamine HCl (Thiamine Hcl 100 Mg Tablet) 100 mg PO DAILY [facility] Last Admin: 04/03/23 08:32 Dose: 100 mg Trolamine Salicylate (Trolamine Salicylate 10 % Cream 85 Gm Tube) 1 appl TOPICAL BID PRN PRN Reason: pain Last Admin: 04/03/23 08:46 Dose: 1 appl Allergies Allergies Allergy/AdvReac Type Severity Reaction Status Date / Time aspirin Allergy Unknown Unknown Verified 03/07/23 13:44 codeine Allergy Unknown Unknown Verified 03/07/23 13:44 haloperidol [From Haldol] Allergy Unknown Unknown Verified 03/07/23 13:44 NSAIDS (Non-Steroidal Allergy Unknown Unknown Verified 03/07/23 13:44 Anti-Inflamma risperidone [From Risperdal] Allergy Unknown Unknown Verified 03/07/23 13:44 tramadol Allergy Unknown Unknown Verified 03/07/23 13:44 trazodone Allergy Unknown Unknown Verified 03/07/23 13:44 prozac Allergy Unknown Unknown Uncoded 03/07/23 13:44 Assessment & Plan Assessment & Plan (1) PTSD (post-traumatic stress disorder): Status: Acute Code(s): F43.10 - Post-traumatic stress disorder, unspecified (2) Schizoaffective disorder, bipolar type: Status: Acute Code(s): F25.0 - Schizoaffective disorder, bipolar type (3) Polysubstance use disorder: Status: Acute Code(s): F19.90 - Other psychoactive substance use, unspecified, uncomplicated Plan 47 yo female, readmit after discharge earlier this week with SI HI. Aftercare, Out patient planning in place prior to earlier discharge. Plan: Re-establish regime Diagnostics as needed Full milieu to address grief, SI, HI DMH will meet with pt on the unit 04/03 11am per pt's social and human services assistant, Jeni GARCÍA. Continue to work with pt on her sorting through housing issues 04/01/23 Pt reporting pain Aspercreme, Flexeril or Robaxin prn 04/02/23 CXR positive Hospitalist opinion requested to return to abx Full med review Depakote taper-pt reports family tells it Depakote causes respiratory illness 04/03 continue tx. Reason for continued inpatient stay Substantial Risk for: inability to function Time Spent With Patient Time: Total time managing care of this patient today ____ minutes.
[2023-04-03 18:00] VITALS: BP 125/70; PULSE 92; RESP 18; TEMP 36.2; O2SAT 98
[2023-04-03] MEDS: Montelukast Sodium 10 MG TABLET PO (20:38)
[2023-04-03] MEDS: Mirtazapine 30 MG TABLET PO (20:38)
[2023-04-03] MEDS: clonazePAM 1 MG TABLET 2 MG PO (20:38)
[2023-04-03] MEDS: Gabapentin 300 MG CAPSULE PO (20:38)
[2023-04-03] MEDS: Prazosin HCL 5 MG CAPSULE PO (20:39)
[2023-04-03] MEDS: QUEtiapine Fumarate 400 MG TABLET PO (20:40)
[2023-04-03] MEDS: guaiFENesin DM 600/30 1 TAB TAB.ER.12H PO (20:40)
[2023-04-03] MEDS: guaiFENesin 100 MG/5 ML LIQUID PO (20:41)
[2023-04-04] MEDS: hydrOXYzine HCL 25 MG TABLET PO ×2 (06:01→12:57)
[2023-04-04] MEDS: Acetaminophen 325 MG TABLET 650 MG PO ×2 (06:01→19:50)
[2023-04-04] MEDS: Omeprazole 40 MG CAPSULE.DR PO (06:02)
[2023-04-04 08:05] VITALS: BP 135/65; PULSE 94; RESP 18; TEMP 36.2; O2SAT 100
[2023-04-04] MEDS: Multivitamin TABLET 1 TAB PO (08:53)
[2023-04-04] MEDS: Calcium + Vitamin D 250 MG TABLET PO (08:53)
[2023-04-04] MEDS: DULoxetine HCl 60 MG CAPSULE.DR PO (08:53)
[2023-04-04] MEDS: Propranolol HCL 10 MG TABLET PO ×2 (08:53→19:50)
[2023-04-04] MEDS: Cyclobenzaprine HCl 10 MG TABLET PO (08:54)
[2023-04-04] MEDS: Thiamine HCL 100 MG TABLET PO (08:54)
[2023-04-04] MEDS: Cyanocobalamin (Vitamin B-12) 1,000 MCG TABLET 1000 MCG PO (08:54)
[2023-04-04] MEDS: amLODIPine Besylate 5 MG TABLET PO (08:54)
[2023-04-04] MEDS: Divalproex Sodium 250 MG TABLET.DR PO (08:57)
[2023-04-04] MEDS: Perphenazine 8 MG TABLET PO ×3 (08:58→19:50)
[2023-04-04] MEDS: Folic Acid 1 MG TABLET PO (08:58)
[2023-04-04] MEDS: clonazePAM 0.5 MG TABLET PO (08:59)
[2023-04-04] MEDS: Loratadine 10 MG TABLET PO (08:59)
[2023-04-04] MEDS: QUEtiapine Fumarate 50 MG TABLET PO ×2 (08:59→10:45)
[2023-04-04] MEDS: Albuterol Sulfate 90 MCG 8 GM INHALER 2 PUFF INHALE (09:01)
[2023-04-04] MEDS: Fluticasone Propionate Nasal 16 GM SPRAY 1 SPRAY NOSTRIL-B (09:01)
[2023-04-04] MEDS: Trolamine Salicylate 10 % Cream 85 GM TUBE 1 APPL TOPICAL (09:02)
[2023-04-04] MEDS: Nicotine Polacrilex 2 MG GUM 4 MG BUCCAL ×3 (09:02→19:50)
[2023-04-04] MEDS: Nicotine 21 MG PATCH.TD24 TRANSDERMA (10:11)
[2023-04-04] MEDS: Lidocaine 4 % Patch ADH..PATCH 2 PATCH TRANSDERMA (12:59)
[2023-04-04] MEDS: methocarbamoL 500 MG TABLET PO (16:50)
[2023-04-04] MEDS: Gabapentin 300 MG CAPSULE PO ×2 (16:50→19:50)
--- NOTE | 2023-04-04 16:55 | HO.PSYCHPN ---
Subjective Subjective Date of Service: 04/04/23 Reason For Visit: F43.10 PTSD F33.2 Major depressive Subjective Notes: Conditional Voluntary Healthcare Proxy: No Guardianship: No Medical Problems Affecting Mental Status: No Interim History: Reviewed in team. Brother will begin process on 04/06. Pt unsure if she will attend. She is doubtful as she was not asked for her opinion regarding services, burial vs cremation and identifies the family conflicts over the loss. She is grieving and identifies this. She also reports pain, knee, shoulder. Asks to go to ER for strong pain medication. Discussed process for eval. By history has been seen by [facility]-will call and make OP appt for follow up. Equal focus on prn medications, probably exacerbated by grief and loss she is experiencing now. Team has appt for pt on 04/06 with [facility] [facility] to begin intake process. Discussion of discharge to this appt as a solid step in transition. Will discuss with pt and Kathleen Roberson on 04/05 Medication Compliance: Yes Side effects from medications: No Attending Groups: No Review of Systems Acute medical concerns: No Medical Review of Systems: unchanged Mental Status Exam Mental Status Exam Patient Appearance: Appropriate Patient Orientation: Person, Place, Time and Situation Level of Consciousness: Alert Patient Behavior: Talkative Mood Description: Labile and Sad Affect Description: Labile Patient Cognition Impaired: No Ability to Follow Directions: Good Speech Pattern: Spontaneous Speech Memory Description: Episodic Impaired Diagnostics Vital Signs (24Hr): Vital Signs - 24 hr 04/03/23 18:00 04/04/23 08:05 Temperature 97.2 F 97.1 F Pulse Rate 92 94 Respiratory Rate 18 18 Blood Pressure 125/70 135/65 Pulse Oximetry 98 100 Oxygen Delivery Method Room Air Room Air Labs 04/02/23 19:12 03/31/23 08:32 Labs: Laboratory Results - last 48 hr 04/02/23 04/02/23 04/03/23 19:12 19:14 Unknown WBC 4.8 RBC 3.54 L Hgb 10.1 L Hct 31.6 L MCV 89.3 MCH 28.5 MCHC 32.0 RDW 13.9 Plt Count 232 MPV 8.8 L Immature Gran % (Auto) 2.1 H Neut % (Auto) 46.6 Lymph % (Auto) 36.6 [place] % (Auto) 11.4 H Eos % (Auto) 2.7 Baso % (Auto) 0.6 Lymph # (Auto) 1.8 [place] # (Auto) 0.6 Eos # (Auto) 0.1 Baso # (Auto) 0.0 Abs Immat Gran (auto) 0.10 H Absolute Neuts (auto) 2.3 Absolute Nucleated RBC 0.000 Nucleated RBC % (auto) 0.0 Procalcitonin 0.03 Respiratory Panel Nava Cancelled Adenovirus (Rapid PCR) Cancelled B.pert (TEM-PCR) Cancelled B.parapertussis DNA PCR Cancelled C. pneumoniae DNA (PCR) Cancelled Coronavirus OC43 (PCR) Cancelled Coronavirus HKU1 (PCR) Cancelled Coronavirus 229E (PCR) Cancelled Coronavirus NL63 (PCR) Cancelled Human Metapneumovir PCR Cancelled Influenza A (RT-PCR) Cancelled Influenza B (RT-PCR) Cancelled M. pneumoniae (PCR) Cancelled Parainfluenza 1 (PCR) Cancelled Parainfluenza 2 (PCR) Cancelled Parainfluenza 3 (PCR) Cancelled Parainfluenza 4 (PCR) Cancelled RSV (PCR) Cancelled Entero/Rhino (PCR) Cancelled SARS-CoV-2 RNA (RT-PCR) Cancelled Imaging Radiology Impressions: ITS Impressions Chest X-Ray 04/02/23 13:40 IMPRESSION: Subtle right basilar opacity, similar to prior exam, which may represent atelectasis or infectious process. Medications Medications Current Medications Acetaminophen (Acetaminophen 325 Mg Tablet) 650 mg PO Q6H PRN PRN Reason: Headache/Pain Mild Scale (1-3) Last Admin: 04/04/23 06:01 Dose: 650 mg Al Hydroxide/Mg Hydroxide (Magnesium Hydrox/Alum Hydrox 30 Ml Oral.Susp) 30 ml PO Q6H PRN PRN Reason: Heartburn/Nausea Albuterol Sulfate (Albuterol Sulfate 90 Mcg 8 Gm Inhaler) 2 puff INHALE RQ4H PRN PRN Reason: wheeze Last Admin: 04/04/23 09:01 Dose: 2 puff Amlodipine Besylate (Amlodipine Besylate 5 Mg Tablet) 5 mg PO DAILY [facility]; Protocol Last Admin: 04/04/23 08:54 Dose: 5 mg Benztropine Mesylate (Benztropine Mesylate 0.5 Mg Tablet) 0.5 mg PO BID PRN PRN Reason: EPS Calcium Carbonate/Cholecalciferol (Calcium + Vitamin D 250 Mg Tablet) 250 mg PO DAILY [facility] Last Admin: 04/04/23 08:53 Dose: 250 mg Capsaicin (Capsaicin 0.025% Cream 60 Gm Tube) 1 appl TOPICAL QID PRN; Protocol PRN Reason: Pain, Mild (Pain Scale 1-3) Last Admin: 04/01/23 15:07 Dose: 1 appl Clonazepam (Clonazepam 1 Mg Tablet) 2 mg PO BEDTIME [facility] Last Admin: 04/03/23 20:38 Dose: 2 mg Clonazepam (Clonazepam 0.5 Mg Tablet) 0.5 mg PO BID PRN PRN Reason: Anxiety Last Admin: 04/04/23 08:59 Dose: 0.5 mg Cyanocobalamin (Cyanocobalamin (Vitamin B-12) 1,000 Mcg Tablet) 1,000 mcg PO DAILY [facility] Last Admin: 04/04/23 08:54 Dose: 1,000 mcg Divalproex Sodium (Divalproex Sodium 250 Mg Tablet.) 250 mg PO DAILY [facility] Stop: 04/05/23 21:00 Last Admin: 04/04/23 08:57 Dose: 250 mg Docusate Sodium (Docusate Sodium 100 Mg Capsule) 100 mg PO BID PRN PRN Reason: constipation Duloxetine HCl (Duloxetine Hcl 60 Mg Capsule.) 60 mg PO DAILY [facility] Last Admin: 04/04/23 08:53 Dose: 60 mg Fluticasone Propionate (Fluticasone Propionate Nasal 16 Gm [place]) 1 spray NOSTRIL-B DAILY [facility] Last Admin: 04/04/23 09:01 Dose: 1 spray Fluticasone/Vilanterol (Fluticasone/Vilanterol 100/25 Blst.W.Dev) 1 puff INHALE RDAILY [facility] Last Admin: 04/04/23 10:04 Dose: Not Given Folic Acid (Folic Acid 1 Mg Tablet) 1 mg PO DAILY [facility] Last Admin: 04/04/23 08:58 Dose: 1 mg Gabapentin (Gabapentin 300 Mg Capsule) 300 mg PO BEDTIME [facility] Last Admin: 04/03/23 20:38 Dose: 300 mg Gabapentin (Gabapentin 300 Mg Capsule) 300 mg PO TID [facility] Guaifenesin (Guaifenesin 100 Mg/5 Ml Liquid) 5 ml PO Q4H PRN PRN Reason: Cough Last Admin: 04/03/23 20:41 Dose: 5 ml Guaifenesin/Dextromethorphan (Guaifenesin Dm 600/30 1 Tab Tab.Er.12h) 1 tab PO BID PRN PRN Reason: Cough Last Admin: 04/03/23 20:40 Dose: 1 tab Hydroxyzine HCl (Hydroxyzine Hcl 25 Mg Tablet) 25 mg PO Q6H PRN PRN Reason: Anxiety Last Admin: 04/04/23 12:57 Dose: 25 mg Lidocaine (Lidocaine 4 % Patch Adh..Patch) 2 patch TRANSDERMA DAILY [facility]; Protocol Last Admin: 04/04/23 12:59 Dose: 2 patch Loratadine (Loratadine 10 Mg Tablet) 10 mg PO DAILY [facility] Last Admin: 04/04/23 08:59 Dose: 10 mg Magnesium Hydroxide (Milk Of Magnesia 30 Ml Oral.Susp) 30 ml PO DAILY PRN PRN Reason: Constipation Methocarbamol (Methocarbamol 500 Mg Tablet) 500 mg PO BID PRN PRN Reason: Pain, Severe (Pain Scale 7-10) Last Admin: 04/04/23 16:50 Dose: 500 mg Mirtazapine (Mirtazapine 30 Mg Tablet) 30 mg PO BEDTIME [facility] Last Admin: 04/03/23 20:38 Dose: 30 mg Montelukast Sodium (Montelukast Sodium 10 Mg Tablet) 10 mg PO BEDTIME [facility] Last Admin: 04/03/23 20:38 Dose: 10 mg Multi-Ingred Cream/Lotion/Oil/Oint (Mineral Oil/Petrolatum,White 106 Gm Tube) 1 appl TOPICAL BID [facility]; Protocol Last Admin: 04/04/23 10:04 Dose: Not Given Multivitamins/Vitamin C (Multivitamin Tablet) 1 tab PO DAILY [facility] Last Admin: 04/04/23 08:53 Dose: 1 tab Nicotine (Nicotine 21 Mg Patch.Td24) 21 mg TRANSDERMA DAILY [facility] Last Admin: 04/04/23 10:11 Dose: 21 mg Nicotine Polacrilex (Nicotine Polacrilex 2 Mg Gum) 4 mg BUCCAL Q2H PRN PRN Reason: Nicotine Cravings Last Admin: 04/04/23 12:57 Dose: 4 mg Omeprazole (Omeprazole 40 Mg Capsule.Dr) 40 mg PO DAILY@0630 [facility] Last Admin: 04/04/23 06:02 Dose: 40 mg Perphenazine (Perphenazine 8 Mg Tablet) 8 mg PO TID [facility] Last Admin: 04/04/23 14:32 Dose: 8 mg Prazosin HCl (Prazosin Hcl 5 Mg Capsule) 5 mg PO BEDTIME [facility]; Protocol Last Admin: 04/03/23 20:39 Dose: 5 mg Propranolol HCl (Propranolol Hcl 10 Mg Tablet) 10 mg PO BID [facility]; Protocol Last Admin: 04/04/23 08:53 Dose: 10 mg Quetiapine Fumarate (Quetiapine Fumarate 400 Mg Tablet) 400 mg PO BEDTIME [facility] Last Admin: 04/03/23 20:40 Dose: 400 mg Quetiapine Fumarate (Quetiapine Fumarate 50 Mg Tablet) 50 mg PO DAILY [facility] Last Admin: 04/04/23 08:59 Dose: 50 mg Quetiapine Fumarate (Quetiapine Fumarate 100 Mg Tablet) 100 mg PO BID PRN PRN Reason: agitation, anxiety Thiamine HCl (Thiamine Hcl 100 Mg Tablet) 100 mg PO DAILY [facility] Last Admin: 04/04/23 08:54 Dose: 100 mg Trolamine Salicylate (Trolamine Salicylate 10 % Cream 85 Gm Tube) 1 appl TOPICAL BID PRN PRN Reason: pain Last Admin: 04/04/23 09:02 Dose: 1 appl Allergies Allergies Allergy/AdvReac Type Severity Reaction Status Date / Time aspirin Allergy Unknown Unknown Verified 03/07/23 13:44 codeine Allergy Unknown Unknown Verified 03/07/23 13:44 haloperidol [From Haldol] Allergy Unknown Unknown Verified 03/07/23 13:44 NSAIDS (Non-Steroidal Allergy Unknown Unknown Verified 03/07/23 13:44 Anti-Inflamma risperidone [From Risperdal] Allergy Unknown Unknown Verified 03/07/23 13:44 tramadol Allergy Unknown Unknown Verified 03/07/23 13:44 trazodone Allergy Unknown Unknown Verified 03/07/23 13:44 prozac Allergy Unknown Unknown Uncoded 03/07/23 13:44 Assessment & Plan Assessment & Plan (1) PTSD (post-traumatic stress disorder): Status: Acute Code(s): F43.10 - Post-traumatic stress disorder, unspecified (2) Schizoaffective disorder, bipolar type: Status: Acute Code(s): F25.0 - Schizoaffective disorder, bipolar type (3) Polysubstance use disorder: Status: Acute Code(s): F19.90 - Other psychoactive substance use, unspecified, uncomplicated Plan 47 yo female, readmit after discharge earlier this week with GERSON SCHMIDT. Aftercare, Out patient planning in place prior to earlier discharge. Plan: Re-establish regime Diagnostics as needed Full milieu to address grief, SI, HI DM will meet with pt on the unit 04/03 11am per pt's sr. social media & mobile manager, Jeni GARCÍA. Continue to work with pt on her sorting through housing issues 04/01/23 Pt reporting pain Aspercreme, Flexeril or Robaxin prn 04/02/23 CXR positive Hospitalist opinion requested to return to abx Full med review Depakote taper-pt reports family tells it Depakote causes respiratory illness 04/03 continue tx. 04/04/23 Continue treatment Informed Consent: understands Reason for continued inpatient stay Substantial Risk for: med/psych decompensation Time Spent With Patient Time: Total time managing care of this patient today ____ minutes.
[2023-04-04 19:40] VITALS: BP 123/75; PULSE 102; TEMP 36.3
[2023-04-04] MEDS: QUEtiapine Fumarate 400 MG TABLET PO (19:50)
[2023-04-04] MEDS: clonazePAM 1 MG TABLET 2 MG PO (19:50)
[2023-04-04] MEDS: Prazosin HCL 5 MG CAPSULE PO (19:50)
[2023-04-04] MEDS: Montelukast Sodium 10 MG TABLET PO (19:50)
[2023-04-04] MEDS: Mirtazapine 30 MG TABLET PO (19:50)
[2023-04-05] MEDS: Omeprazole 40 MG CAPSULE.DR PO (06:12)
[2023-04-05 08:27] VITALS: BP 130/78; PULSE 95; RESP 16; TEMP 36.7; O2SAT 100
[2023-04-05] MEDS: Fluticasone Propionate Nasal 16 GM SPRAY 1 SPRAY NOSTRIL-B (08:28)
[2023-04-05] MEDS: Fluticasone/Vilanterol 100/25 BLST.W.DEV 1 PUFF INHALE (08:28)
[2023-04-05] MEDS: Lidocaine 4 % Patch ADH..PATCH 2 PATCH TRANSDERMA (08:29)
[2023-04-05] MEDS: amLODIPine Besylate 5 MG TABLET PO (08:32)
[2023-04-05] MEDS: QUEtiapine Fumarate 50 MG TABLET PO (08:32)
[2023-04-05] MEDS: Multivitamin TABLET 1 TAB PO (08:32)
[2023-04-05] MEDS: Cyanocobalamin (Vitamin B-12) 1,000 MCG TABLET 1000 MCG PO (08:32)
[2023-04-05] MEDS: Propranolol HCL 10 MG TABLET PO ×2 (08:32→20:44)
[2023-04-05] MEDS: Calcium + Vitamin D 250 MG TABLET PO (08:33)
[2023-04-05] MEDS: Thiamine HCL 100 MG TABLET PO (08:33)
[2023-04-05] MEDS: Nicotine 21 MG PATCH.TD24 TRANSDERMA (08:33)
[2023-04-05] MEDS: Loratadine 10 MG TABLET PO (08:33)
[2023-04-05] MEDS: Folic Acid 1 MG TABLET PO (08:33)
[2023-04-05] MEDS: Divalproex Sodium 250 MG TABLET.DR PO (08:33)
[2023-04-05] MEDS: DULoxetine HCl 60 MG CAPSULE.DR PO (08:33)
[2023-04-05] MEDS: Mineral Oil/Petrolatum,White 106 GM Tube 1 APPL TOPICAL (08:39)
[2023-04-05] MEDS: methocarbamoL 500 MG TABLET PO (08:43)
[2023-04-05] MEDS: Acetaminophen 325 MG TABLET 650 MG PO (08:43)
[2023-04-05] MEDS: Nicotine Polacrilex 2 MG GUM 4 MG BUCCAL ×2 (08:43→15:41)
[2023-04-05] MEDS: Perphenazine 8 MG TABLET PO ×3 (10:25→20:43)
[2023-04-05] MEDS: Gabapentin 300 MG CAPSULE PO ×3 (10:26→20:42)
[2023-04-05] MEDS: Capsaicin 0.025% Cream 60 GM TUBE 1 APPL TOPICAL (10:27)
[2023-04-05] MEDS: hydrOXYzine HCL 25 MG TABLET PO (10:50)
[2023-04-05] MEDS: guaiFENesin DM 600/30 1 TAB TAB.ER.12H PO (15:40)
[2023-04-05] MEDS: QUEtiapine Fumarate 100 MG TABLET PO (15:41)
[2023-04-05] MEDS: methocarbamoL 500 MG TABLET 750 MG PO (18:09)
[2023-04-05 20:30] VITALS: BP 137/81; PULSE 76; TEMP 36.2; O2SAT 94
[2023-04-05] MEDS: clonazePAM 1 MG TABLET 2 MG PO (20:38)
[2023-04-05] MEDS: Prazosin HCL 5 MG CAPSULE PO (20:43)
[2023-04-05] MEDS: Mirtazapine 30 MG TABLET PO (20:43)
[2023-04-05] MEDS: QUEtiapine Fumarate 400 MG TABLET PO (20:43)
[2023-04-05] MEDS: Montelukast Sodium 10 MG TABLET PO (20:44)
--- NOTE | 2023-04-05 20:56 | HO.PSYCHPN ---
Subjective Subjective Date of Service: 04/05/23 Reason For Visit: F43.10 PTSD F33.2 Major depressive Subjective Notes: Conditional Voluntary Healthcare Proxy: No Guardianship: No Medical Problems Affecting Mental Status: No Interim History: Discussed with team. Met with pt and Jeni GARCÍA to discuss upcoming service intakes Pt will discharge to appt with [facility]. Discussed that she has decided not to travel to [facility] and will remain local to continue to work on establishing her out pt team and needed services. Pt believes her [facility] meeting went well. She is hoping for acceptance for services. She continues to focus on physical pain-shoulder, knee and prn pain medication. Discussed these as being issues to be addressed in out patient vs acute care. Struggles with this-several calls from team this evening for ER consult for pain meds, hospitalist consult, increase in pain meds. Pt has had significant medical consultation during this admission and these issues have been addressed. Medication Compliance: Yes Side effects from medications: No Attending Groups: No Review of Systems Acute medical concerns: No Medical Review of Systems: unchanged Mental Status Exam Mental Status Exam Patient Appearance: Appropriate Patient Orientation: Person, Place, Time and Situation Level of Consciousness: Alert Patient Behavior: Talkative Mood Description: Labile and Sad Affect Description: Labile Patient Cognition Impaired: No Ability to Follow Directions: Good Speech Pattern: Spontaneous Speech Memory Description: Episodic Impaired Thought Content: positive for Hypochondriasis Diagnostics Vital Signs (24Hr): Vital Signs - 24 hr 04/05/23 08:27 Temperature 98.1 F Pulse Rate 95 Respiratory Rate 16 Blood Pressure 130/78 Pulse Oximetry 100 Oxygen Delivery Method Room Air Labs 04/02/23 19:12 03/31/23 08:32 Labs: Laboratory Results - last 48 hr 04/03/23 Unknown Respiratory Panel Nava Cancelled Adenovirus (Rapid PCR) Cancelled B.pert (TEM-PCR) Cancelled B.parapertussis DNA PCR Cancelled C. pneumoniae DNA (PCR) Cancelled Coronavirus OC43 (PCR) Cancelled Coronavirus HKU1 (PCR) Cancelled Coronavirus 229E (PCR) Cancelled Coronavirus NL63 (PCR) Cancelled Human Metapneumovir PCR Cancelled Influenza A (RT-PCR) Cancelled Influenza B (RT-PCR) Cancelled M. pneumoniae (PCR) Cancelled Parainfluenza 1 (PCR) Cancelled Parainfluenza 2 (PCR) Cancelled Parainfluenza 3 (PCR) Cancelled Parainfluenza 4 (PCR) Cancelled RSV (PCR) Cancelled Entero/Rhino (PCR) Cancelled SARS-CoV-2 RNA (RT-PCR) Cancelled Imaging Radiology Impressions: ITS Impressions Chest X-Ray 04/02/23 13:40 IMPRESSION: Subtle right basilar opacity, similar to prior exam, which may represent atelectasis or infectious process. Medications Medications Current Medications Acetaminophen (Acetaminophen 325 Mg Tablet) 650 mg PO Q6H PRN PRN Reason: Headache/Pain Mild Scale (1-3) Last Admin: 04/05/23 08:43 Dose: 650 mg Al Hydroxide/Mg Hydroxide (Magnesium Hydrox/Alum Hydrox 30 Ml Oral.Susp) 30 ml PO Q6H PRN PRN Reason: Heartburn/Nausea Albuterol Sulfate (Albuterol Sulfate 90 Mcg 8 Gm Inhaler) 2 puff INHALE RQ4H PRN PRN Reason: wheeze Last Admin: 04/04/23 09:01 Dose: 2 puff Amlodipine Besylate (Amlodipine Besylate 5 Mg Tablet) 5 mg PO DAILY [facility]; Protocol Last Admin: 04/05/23 08:32 Dose: 5 mg Bacitracin (Bacitracin Oint 14 Gm Tube) 1 appl TOPICAL BID [facility]; Protocol Last Admin: 04/05/23 10:26 Dose: Not Given Benzocaine (Benzocaine 20 % Oral Gel 9 Gm Tube) 1 appl MUCOUS MEM QID PRN; Protocol PRN Reason: dental pain Benztropine Mesylate (Benztropine Mesylate 0.5 Mg Tablet) 0.5 mg PO BID PRN PRN Reason: EPS Calcium Carbonate/Cholecalciferol (Calcium + Vitamin D 250 Mg Tablet) 250 mg PO DAILY [facility] Last Admin: 04/05/23 08:33 Dose: 250 mg Capsaicin (Capsaicin 0.025% Cream 60 Gm Tube) 1 appl TOPICAL QID PRN; Protocol PRN Reason: Pain, Mild (Pain Scale 1-3) Last Admin: 04/05/23 10:27 Dose: 1 appl Clonazepam (Clonazepam 1 Mg Tablet) 2 mg PO BEDTIME EDLMAR Last Admin: 04/05/23 20:38 Dose: 2 mg Clonazepam (Clonazepam 0.5 Mg Tablet) 0.5 mg PO BID PRN PRN Reason: Anxiety Last Admin: 04/04/23 08:59 Dose: 0.5 mg Cyanocobalamin (Cyanocobalamin (Vitamin B-12) 1,000 Mcg Tablet) 1,000 mcg PO DAILY [facility] Last Admin: 04/05/23 08:32 Dose: 1,000 mcg Divalproex Sodium (Divalproex Sodium 250 Mg Tablet.Dr) 250 mg PO DAILY [facility] Stop: 04/05/23 21:00 Last Admin: 04/05/23 08:33 Dose: 250 mg Docusate Sodium (Docusate Sodium 100 Mg Capsule) 100 mg PO BID PRN PRN Reason: constipation Duloxetine HCl (Duloxetine Hcl 60 Mg Capsule.Dr) 60 mg PO DAILY [facility] Last Admin: 04/05/23 08:33 Dose: 60 mg Fluticasone Propionate (Fluticasone Propionate Nasal 16 Gm [place]) 1 spray NOSTRIL-B DAILY [facility] Last Admin: 04/05/23 08:28 Dose: 1 spray Fluticasone/Vilanterol (Fluticasone/Vilanterol 100/25 Blst.W.Dev) 1 puff INHALE RDAILY [facility] Last Admin: 04/05/23 08:28 Dose: 1 puff Folic Acid (Folic Acid 1 Mg Tablet) 1 mg PO DAILY [facility] Last Admin: 04/05/23 08:33 Dose: 1 mg Gabapentin (Gabapentin 300 Mg Capsule) 300 mg PO BEDTIME [facility] Last Admin: 04/04/23 19:50 Dose: 300 mg Gabapentin (Gabapentin 300 Mg Capsule) 300 mg PO TID [facility] Last Admin: 04/05/23 20:42 Dose: 300 mg Guaifenesin (Guaifenesin 100 Mg/5 Ml Liquid) 5 ml PO Q4H PRN PRN Reason: Cough Last Admin: 04/03/23 20:41 Dose: 5 ml Guaifenesin/Dextromethorphan (Guaifenesin Dm 600/30 1 Tab Tab.Er.12h) 1 tab PO BID PRN PRN Reason: Cough Last Admin: 04/05/23 15:40 Dose: 1 tab Hydroxyzine HCl (Hydroxyzine Hcl 25 Mg Tablet) 25 mg PO Q6H PRN PRN Reason: Anxiety Last Admin: 04/05/23 10:50 Dose: 25 mg Lidocaine (Lidocaine 4 % Patch Adh..Patch) 2 patch TRANSDERMA DAILY [facility]; Protocol Last Admin: 04/05/23 08:29 Dose: 2 patch Loratadine (Loratadine 10 Mg Tablet) 10 mg PO DAILY [facility] Last Admin: 04/05/23 08:33 Dose: 10 mg Magnesium Hydroxide (Milk Of Magnesia 30 Ml Oral.Susp) 30 ml PO DAILY PRN PRN Reason: Constipation Methocarbamol (Methocarbamol 500 Mg Tablet) 500 mg PO BID PRN PRN Reason: Pain, Severe (Pain Scale 7-10) Last Admin: 04/05/23 08:43 Dose: 500 mg Mirtazapine (Mirtazapine 30 Mg Tablet) 30 mg PO BEDTIME [facility] Last Admin: 04/05/23 20:43 Dose: 30 mg Montelukast Sodium (Montelukast Sodium 10 Mg Tablet) 10 mg PO BEDTIME [facility] Last Admin: 04/05/23 20:44 Dose: 10 mg Multi-Ingred Cream/Lotion/Oil/Oint (Mineral Oil/Petrolatum,White 106 Gm Tube) 1 appl TOPICAL BID [facility]; Protocol Last Admin: 04/05/23 08:39 Dose: 1 appl Multivitamins/Vitamin C (Multivitamin Tablet) 1 tab PO DAILY [facility] Last Admin: 04/05/23 08:32 Dose: 1 tab Nicotine (Nicotine 21 Mg Patch.Td24) 21 mg TRANSDERMA DAILY [facility] Last Admin: 04/05/23 08:33 Dose: 21 mg Nicotine Polacrilex (Nicotine Polacrilex 2 Mg Gum) 4 mg BUCCAL Q2H PRN PRN Reason: Nicotine Cravings Last Admin: 04/05/23 15:41 Dose: 4 mg Omeprazole (Omeprazole 40 Mg Capsule.Dr) 40 mg PO DAILY@0630 [facility] Last Admin: 04/05/23 06:12 Dose: 40 mg Perphenazine (Perphenazine 8 Mg Tablet) 8 mg PO TID [facility] Last Admin: 04/05/23 20:43 Dose: 8 mg Prazosin HCl (Prazosin Hcl 5 Mg Capsule) 5 mg PO BEDTIME [facility]; Protocol Last Admin: 04/05/23 20:43 Dose: 5 mg Propranolol HCl (Propranolol Hcl 10 Mg Tablet) 10 mg PO BID [facility]; Protocol Last Admin: 04/05/23 20:44 Dose: 10 mg Quetiapine Fumarate (Quetiapine Fumarate 400 Mg Tablet) 400 mg PO BEDTIME [facility] Last Admin: 04/05/23 20:43 Dose: 400 mg Quetiapine Fumarate (Quetiapine Fumarate 50 Mg Tablet) 50 mg PO DAILY [facility] Last Admin: 04/05/23 08:32 Dose: 50 mg Quetiapine Fumarate (Quetiapine Fumarate 100 Mg Tablet) 100 mg PO BID PRN PRN Reason: agitation, anxiety Last Admin: 04/05/23 15:41 Dose: 100 mg Thiamine HCl (Thiamine Hcl 100 Mg Tablet) 100 mg PO DAILY [facility] Last Admin: 04/05/23 08:33 Dose: 100 mg Trolamine Salicylate (Trolamine Salicylate 10 % Cream 85 Gm Tube) 1 appl TOPICAL BID PRN PRN Reason: pain Last Admin: 04/04/23 09:02 Dose: 1 appl Allergies Allergies Allergy/AdvReac Type Severity Reaction Status Date / Time aspirin Allergy Unknown Unknown Verified 03/07/23 13:44 codeine Allergy Unknown Unknown Verified 03/07/23 13:44 haloperidol [From Haldol] Allergy Unknown Unknown Verified 03/07/23 13:44 NSAIDS (Non-Steroidal Allergy Unknown Unknown Verified 03/07/23 13:44 Anti-Inflamma risperidone [From Risperdal] Allergy Unknown Unknown Verified 03/07/23 13:44 tramadol Allergy Unknown Unknown Verified 03/07/23 13:44 trazodone Allergy Unknown Unknown Verified 03/07/23 13:44 prozac Allergy Unknown Unknown Uncoded 03/07/23 13:44 Assessment & Plan Assessment & Plan (1) PTSD (post-traumatic stress disorder): Status: Acute Code(s): F43.10 - Post-traumatic stress disorder, unspecified (2) Schizoaffective disorder, bipolar type: Status: Acute Code(s): F25.0 - Schizoaffective disorder, bipolar type (3) Polysubstance use disorder: Status: Acute Code(s): F19.90 - Other psychoactive substance use, unspecified, uncomplicated Plan 47 yo female, readmit after discharge earlier this week with SI HI. Aftercare, Out patient planning in place prior to earlier discharge. Plan: Re-establish regime Diagnostics as needed Full milieu to address grief, SI, HI DM will meet with pt on the unit 04/03 11am per pt's social worker health services, Jeni GARCÍA. Continue to work with pt on her sorting through housing issues 04/01/23 Pt reporting pain Aspercreme, Flexeril or Robaxin prn 04/02/23 CXR positive Hospitalist opinion requested to return to abx Full med review Depakote taper-pt reports family tells it Depakote causes respiratory illness 04/03 continue tx. 04/05 Discharge 04/06 is planned with pt today. Patient educated on: medication risk/benefits and therapeutic strategies Informed Consent: understands Reason for continued inpatient stay Substantial Risk for: stable for discharge Time Spent With Patient Time: Total time managing care of this patient today ____ minutes.
[2023-04-06] MEDS: methocarbamoL 500 MG TABLET PO ×2 (03:00→09:47)
[2023-04-06] MEDS: QUEtiapine Fumarate 100 MG TABLET PO ×2 (03:00→13:49)
[2023-04-06] MEDS: clonazePAM 0.5 MG TABLET PO ×2 (03:00→08:33)
[2023-04-06] MEDS: Omeprazole 40 MG CAPSULE.DR PO (06:47)
[2023-04-06 07:00] VITALS: BMI 46.4
[2023-04-06 08:15] VITALS: BP 128/71; PULSE 99; RESP 18; TEMP 37.2; O2SAT 97
[2023-04-06] MEDS: amLODIPine Besylate 5 MG TABLET PO (08:31)
[2023-04-06] MEDS: Cyanocobalamin (Vitamin B-12) 1,000 MCG TABLET 1000 MCG PO (08:31)
[2023-04-06] MEDS: Thiamine HCL 100 MG TABLET PO (08:32)
[2023-04-06] MEDS: Propranolol HCL 10 MG TABLET PO (08:32)
[2023-04-06] MEDS: Multivitamin TABLET 1 TAB PO (08:32)
[2023-04-06] MEDS: Loratadine 10 MG TABLET PO (08:33)
[2023-04-06] MEDS: QUEtiapine Fumarate 50 MG TABLET PO (08:33)
[2023-04-06] MEDS: Calcium + Vitamin D 250 MG TABLET PO (08:34)
[2023-04-06] MEDS: Folic Acid 1 MG TABLET PO (08:34)
[2023-04-06] MEDS: Gabapentin 400 MG CAPSULE PO (08:34)
[2023-04-06] MEDS: DULoxetine HCl 60 MG CAPSULE.DR PO (08:34)
[2023-04-06] MEDS: Nicotine 21 MG PATCH.TD24 TRANSDERMA (08:35)
[2023-04-06] MEDS: Perphenazine 8 MG TABLET PO (08:35)
[2023-04-06] MEDS: Fluticasone Propionate Nasal 16 GM SPRAY 1 SPRAY NOSTRIL-B (08:58)
[2023-04-06] MEDS: Albuterol Sulfate 90 MCG 8 GM INHALER 2 PUFF INHALE (08:58)
[2023-04-06] MEDS: Trolamine Salicylate 10 % Cream 85 GM TUBE 1 APPL TOPICAL (08:58)
[2023-04-06] MEDS: Lidocaine 4 % Patch ADH..PATCH 2 PATCH TRANSDERMA (08:59)
[2023-04-06] MEDS: Acetaminophen 325 MG TABLET 650 MG PO (09:47)
[2023-04-06] MEDS: Nicotine Polacrilex 2 MG GUM 4 MG BUCCAL ×2 (09:48→13:49)
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
== END 2023-04-06 13:50 | disposition home or self-care (01) | DRG 885 ==
PROVIDERS: Physician Assistant; Admitting Provider Psychiatry & Neurology Psychiatry; Visit Provider Clinical Nurse Specialist Psychiatric/Mental Health, Adult
DX: F25.0 Schizoaffective disorder, bipolar type (principal); R45.851 Suicidal ideations; I10 Essential (primary) hypertension; M79.7 Fibromyalgia; R45.850 Homicidal ideations; J44.9 Chronic obstructive pulmonary disease, unspecified; F19.10 Other psychoactive substance abuse, uncomplicated; F43.10 Post-traumatic stress disorder, unspecified; F17.210 Nicotine dependence, cigarettes, uncomplicated; Z71.6 Tobacco abuse counseling; Z79.51 Long term (current) use of inhaled steroids; Z79.899 Other long term (current) drug therapy
CPT/HCPCS: 36415; 71045; 80053; 80061; 84145; 85025; 87633; 97162

== ENCOUNTER → 2023-03-30 13:52 | Outpatient (BNV) | payer OTHER, SELFPAY | PROVIDERS: Admitting Provider Psychiatry & Neurology Psychiatry; Visit Provider Student in an Organized Health Care Education/Training Program | DX: M25.561 Pain in right knee (principal); M25.562 Pain in left knee; R07.9 Chest pain, unspecified | CPT/HCPCS: 99222; 99499 ==

== ENCOUNTER → 2023-03-30 13:52 | Outpatient (BNV) | payer OTHER, SELFPAY | PROVIDERS: Admitting Provider Psychiatry & Neurology Psychiatry; Visit Provider Clinical Nurse Specialist Psychiatric/Mental Health, Adult | DX: F43.11 Post-traumatic stress disorder, acute (principal); F25.0 Schizoaffective disorder, bipolar type; F19.90 Other psychoactive substance use, unspecified, uncomplicated | CPT/HCPCS: 90792; 99231; 99232; 99239 ==

== ENCOUNTER 2023-04-12 11:14 | Inpatient (IN) | payer OTHER, SELFPAY ==
--- OUTSIDE RECORDS SUMMARY | 2023-04-12 11:19 | XMS_ITS | Continuity of Care Document ---
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 Role Phone Yevgeniy ÁLVAREZ, Polly Kapoor Primary Care Physician [phone] Encounter [facility] Date(s): 03/27/23 - 04/03/23 [facility] [address] [place], [place] [address] Encounter Diagnosis Polysubstance abuse(Discharge Diagnosis) - 03/27/23 Left shoulder pain(Discharge Diagnosis) - 03/27/23 Severe major depression(Discharge Diagnosis) - 03/27/23 Attending Physician: Gus Chapa MD Allergies, Adverse Reactions, Alerts Substance Reaction Severity Status codeine Active aspirin Active Haldol Active NSAIDs Active PROzac Active TraMADol Hydrochloride Activ e Immunizations Given and Recorded Vaccine Date Status Refusal Reason [id number] bivalent booster vax 06/21/22 Recorded tetanus/diphtheria/pertussis, acel(Tdap) 1 05/14/21 Given SARS-CoV-2 (COVID-19) Ad26 vaccine 2 02/15/21 Give n Influenza Virus Vaccine (oldterm) 06/11/20 Recorde d 1Result Comment: [facility] [id number] 2Result Comment: [facility] [id number] Medications amLODIPine 5 mg oral tablet 0 [...] opioid drug. Start Date: 02/27/23 Status: Ordered capsaicin 0.025% topical cream Topically, 3 times a day, 0 Refills, Maintenance, 03/27/23 14:31:00 EDT, Partial fill upon patient request if the prescription is for a schedule II opioid drug. Start Date: 03/27/23 Status: Ordered clonazePAM 0.5 mg oral tablet 0 Refills, Maintenance, 03/27/23 14:30:00 EDT, Partial fill upon patient request if the prescription is for a schedule II opioid drug. Start Date: 03/27/23 Status: Ordered clonazePAM 1 mg oral tablet 0 Refills, Maintenance, 02/27/23 15:01:00 EDT, Partial fill upon patient request if the prescription is for a schedule II opioid drug. Start Date: 02/27/23 Status: Ordered clonazePAM 2 mg oral tablet 0 Refills, Maintenance, 03/27/23 14:30:00 EDT, Partial fill upon patient request if the prescription is for a schedule II opioid drug. Start Date: 03/27/23 Status: Ordered cyanocobalamin 1000 mcg oral tablet, extended release 1 tablet = 1,000 mcg, By Mouth, Daily, 0 Refills, Maintenance, 03/27/23 14:31:00 EDT, Partial fill upon patient request if the prescription is for a schedule II opioid drug. Start Date: 03/27/23 Status: Ordered divalproex sodium 500 mg oral [...] 1 Refills, Maintenance, 11/08/22 11:26:00EDT, EC Capsule, [facility], Partial fill upon patient request if the prescription is fora schedule II opioid drug., 175, cm, 10/19/22 9:28:... Start Date: 11/08/22 Status: Ordered duloxetine 60 mg oral enteric coated capsule 0 Refills, Maintenance, 02/27/23 15:02:00 EDT, Partial fill upon patient request if the prescription is for a schedule II opioid drug. Start Date: 02/27/23 Status: Ordered folic acid 1 mg oral tablet 1 mg, 1, tablet, By Mouth, Daily, Refills 0, Maintenance, 03/27/23 14:32:00 EDT, Partial fill upon patient request if the prescription is for a schedule II opioid drug. Start Date: 03/27/23 Status: Ordered Formoterol 20 mcg, Inhalation, 2 times a day, Refills 0, Maintenance, 03/27/23 14:36:00 EDT Start Date: 03/27/23 Status: Ordered gabapentin 300 mg oral capsule Refills 0, Maintenance, 03/27/23 14:32:00 EDT, Partial fill upon patient request if the prescription is for a schedule II opioid drug. Start Date: 03/27/23 Status: Ordered hydrOXYzine pamoate 50 mg oral capsule 0 Refills, Maintenance, 02/27/23 15:02:00 EDT, Partial fill upon patient request if the prescription is for a schedule II opioid drug. Start Date: 02/27/23 Status: Ordered L knee brace L knee brace, See Instructions, # 1 each, Refills 0, Tot. Refills 0, Maintenance, For use d/t osteoarthritis, 03/27/23 15:21:00 EDT, Supply Start Date: 03/27/23 Status: Ordered Lidocaine IV Infusion, Once, 0 Refills, Maintenance, 03/27/23 14:33:00 EDT, Partial fill upon patient requestif the prescription is for a schedule II opioid drug. Start Date: 03/27/23 Status: Ordered loratadine 10 mg oral tablet 10 mg, 1, tablet, By Mouth, Daily, Refills 0, Maintenance, 03/27/23 14:37:00 EDT, Partial fill uponpatient request if the prescription is for a schedule II opioid drug. Start Date: 03/27/23 Status: Ordered methocarbamol 750 mg oral tablet 2 tablet = 1,500 mg, By Mouth, 3 times a day, 0 Refills, Maintenance, 03/27/23 14:37:00 EDT, Partial fill upon patient request if the prescription is for a schedule II opioid drug. Start Date: 03/27/23 Status: Ordered mirtazapine 30 mg oral tablet [...] opioid drug. Start Date: 02/27/23 Status: Ordered Nicotine 2 mg gum 0 Refills, Maintenance, 03/27/23 14:35:00 EDT, Partial fill upon patient request if the prescription is for a schedule II opioid drug. Start Date: 03/27/23 Status: Ordered nicotine 21 mg/24 hr transdermal film, extended release 0 Refills, Maintenance, 03/27/23 14:35:00 EDT, Partial fill upon patient request if the prescription is for a schedule II opioid drug. Start Date: 03/27/23 Status: Ordered olanzapine 5 mg oral tablet Refills 0, Maintenance, 02/27/23 15:02:00 EDT, Partial fill upon patient request if the prescription is for a schedule II opioid drug. Start Date: 02/27/23 Status: Ordered omeprazole 40 mg oral enteric coated capsule 1 capsule = 40 mg, By Mouth, Daily, # 30 capsule, 1 Refills, Maintenance, 02/27/23 15:17:00 EDT, Jimmy, [facility], Partial fill upon patient request if the prescription is for a schedule II opioid drug., 175, cm, 02/27/23 14:56:00 EDT,... Start Date: 02/27/23 Status: Ordered pantoprazole 40 mg oral delayed release tablet 1 tablet = 40 mg, By Mouth, Daily, 0 Refills, Maintenance, 03/27/23 14:38:00 EDT Start Date: 03/27/23 Status: Ordered perphenazine 8 mg oral tablet Refills 0, Maintenance, 03/27/23 14:35:00 EDT, Partial fill upon patient request if the prescription is for a schedule II opioid drug. Start Date: 03/27/23 Status: Ordered prazosin 2 mg oral capsule 0 Refills, Maintenance, 02/27/23 15:02:00 EDT, Partial fill upon patient request if the prescription is for a schedule II opioid drug. Start Date: 02/27/23 Status: Ordered prazosin 5 mg oral capsule Refills 0, Maintenance, 03/27/23 14:35:00 EDT, Partial fill upon patient request if the prescription is for a schedule II opioid drug. Start Date: 03/27/23 Status: Ordered propranolol 10 mg oral tablet Refills 0, Maintenance, 02/27/23 15:02:00 EDT, Partial fill upon patient request if the prescription is for a schedule II opioid drug. Start Date: 02/27/23 Status: Ordered QUEtiapine 100 mg oral tablet Refills 0, Maintenance, 03/27/23 14:35:00 EDT, Partial fill upon patient request if the prescription is for a schedule II opioid drug. Start Date: 03/27/23 Status: Ordered QUEtiapine 400 mg oral tablet 1 tablet = 400 mg, By Mouth, 2 times a day, 0 Refills, Maintenance, 03/27/23 14:39:00 EDT, Partial fill upon patient request if the prescription is for a schedule II opioid drug. Start Date: 03/27/23 Status: Ordered QUEtiapine 50 mg oral tablet 0 Refills, Maintenance, 02/27/23 15:01:00 EDT, Partial fill upon patient request if the prescription is for a schedule II opioid drug. Start Date: 02/27/23 Status: Ordered thiamine 100 mg oral tablet Refills 0, Maintenance, 03/27/23 14:35:00 EDT, Partial fill upon patient request if the prescription is for a schedule II opioid drug. Start Date: 03/27/23 Status: Ordered Tylenol 8 Hour 650 mg [...] Effective Dates Health Status Clinical Service Informant Polysubstance abuse Discharge Diagnosis 03/27/23 Left shoulder pain Discharge Diagnosis 03/27/23 Severe major depression Discharge Diagnosis 03/27/23 Vital Signs Most recent to oldest [Reference Range]: 1 Height 175 cm (03/27/23 2:39 PM) Weight 137 kg (03/27/23 2:39 PM) Oxygen Saturation [94-100 %] 98 % (03/27/23 2:39 PM) Pulse Rate [55-90 bpm] 99 bpm *H* (03/27/23 2:39 PM) Body Mass Index [18.5-24.99 kg/m2] 44.73 kg/m2 *>HHI* (03/27/23 2:39 PM) Blood Pressure [90-138/55-84 mm Hg] 104/ 71mm Hg (03/27/23 2:39 PM) Blood pressure sites Arm, left (03/27/23 2:39 PM) Social History Social History Type Response Smoking Status 10 or more cigarette s (1/2 pack or more)/day in last 30 days; Interested in cessation: No; Patient wants NRT during admission Yes; Other: 1/2 pack daily; entered on: 01/13/22 Sex Note * Faviola Abernathy: PERFORM, SIGN, VERIFY Event Display: Patient Education/Instruction Authored Date: [id number] [facility] *[facility] Clinical Summary Name PEGGY DEWEY Age 47 Years 1975 PCP Yevgeniy ÁLVAREZ, Polly Kapoor PCP Visit Date 03/27/2023 14:21:00 Additional Instructions: Scheduled Appointments?? Future Appointments ?No Future Appointments Scheduled Follow-Up Instructions ?? Diagnosis Unilateral primary osteoarthritis, left knee Medications: Please continue your medications until treatment is completed or stopped by your provider. Discuss any questions related to medications with your provider. New Medications - Durable Medical Equipment (L knee brace) For use d/t osteoarthritis. Refills: 0. Next Dose: Medications to Continue with No Changes These medications were not printed or sent to your pharmacy Acetaminophen (Tylenol 8 Hour 650 mg oral tablet, extended release) 2 tab(s) Oral every 8 hours. Next Dose: Amlodipine (amLODIPine 5 mg oral tablet) Next Dose: Benztropine (benztropine 0.5 mg oral tablet) Next Dose: Capsaicin Topical (capsaicin 0.025% topical cream) Topically 3 times a day. Next Dose: Clonazepam (clonazePAM 0.5 mg oral tablet) Next Dose: Clonazepam (clonazePAM 1 mg oral tablet) Next Dose: Clonazepam (clonazePAM 2 mg oral tablet) Next Dose: Cyanocobalamin (cyanocobalamin 1000 mcg oral tablet, extended release) 1 tab(s) Oral Daily. Next Dose: Divalproex Sodium (divalproex sodium 500 mg oral tablet, extended release) Next Dose: Docusate (docusate sodium 100 mg oral capsule) Next Dose: Duloxetine (duloxetine 30 mg oral enteric coated capsule) 1 capsule Oral twice a day. Refills: 1. Next Dose: Duloxetine (duloxetine 60 mg oral enteric coated capsule) Next Dose: fluticasone-vilanterol (Breo Ellipta 100 mcg-25 mcg/inh inhalation powder) Next Dose: Folic Acid (folic acid 1 mg oral tablet) 1 tab(s) Oral Daily. Next Dose: Formoterol 20 Microgram Inhalation twice a day. Next Dose: Gabapentin (gabapentin 300 mg oral capsule) Next Dose: HydrOXYzine (hydrOXYzine pamoate 50 mg oral capsule) Next Dose: Lidocaine Intravenous Infusion once. Next Dose: Loratadine (loratadine 10 mg oral tablet) 1 tab(s) Oral Daily. Next Dose: Methocarbamol (methocarbamol 750 mg oral tablet) 2 tab(s) Oral 3 times a day. Next Dose: Mirtazapine (mirtazapine 30 mg oral tablet) Next Dose: Miscellaneous Rx (VITAMIN D3 CAP 1000UNIT) Next Dose: Miscellaneous Rx (VITAMIN D3 1000UNIT Capsules) Next Dose: Montelukast (montelukast 10 mg oral tablet) Next Dose: Naltrexone (naltrexone 50 mg oral tablet) Next Dose: Nicotine (Nicotine 2 mg gum) Next Dose: Nicotine (nicotine 21 mg/24 hr transdermal film, extended release) Next Dose: Olanzapine (olanzapine 5 mg oral tablet) Next Dose: Omeprazole (omeprazole 40 mg oral enteric coated capsule) 1 capsule Oral Daily. Refills: 1. Next Dose: Pantoprazole (pantoprazole 40 mg oral delayed release tablet) 1 tab(s) Oral Daily. Next Dose: Perphenazine (perphenazine 8 mg oral tablet) Next Dose: Prazosin (prazosin 2 mg oral capsule) Next Dose: Prazosin (prazosin 5 mg oral capsule) Next Dose: Propranolol (propranolol 10 mg oral tablet) Next Dose: Quetiapine (QUEtiapine 100 mg oral tablet) Next Dose: Quetiapine (QUEtiapine 400 mg oral tablet) 1 tab(s) Oral twice a day. Next Dose: Quetiapine (QUEtiapine 50 mg oral tablet) Next Dose: Thiamine (thiamine 100 mg oral tablet) Next Dose: Zolpidem (zolpidem 5 mg oral tablet) 1 tab(s) Oral Daily at Bedtime as needed as needed for insomnia. Next Dose: Allergy Info:?? TraMADol Hydrochloride; PROzac; NSAIDs; Haldol; aspirin; codeine Medications Given This Visit Future Orders ?No future orders Vital Signs Height 175 cm Weight 137 kg BMI 44.73 kg/m2 Blood Pressure 104 mm Hg/71 mm Hg Temperature Pulse Rate 99 bpm Respiratory Rate 02 Sat Mode of Delivery 98 %/ You can now view a summary of your hospital visit from the comfort of your home through a free online portal called [email or web address]. [employer] is a website that allows you to securely view your medical information including discharge summary, medications and follow-up visits. ??You can alsosend a secure electronic message to your doctor???s office to request appointments, renew medications or just ask a question. You can enroll at [email or web address] or register during your next office [...] primary care provider, you may find a [facility] provider by calling [facility] at [phone]. For information about the plan of care [...] Personnel Name: Mahendra Maria Position: S RN Member Role: Primary Care Nurse Name: Jeni Solorio RN Position: S RN Member Role: Primary Care Nurse Name: Rebekah Delatorre RN Position: S RN Member Role: Primary Care Nurse Name: Polly Vuong MD, V Position: [facility] Physician - Primary Care Member Role: PCP Address: Address: [address] [place] [id number] Name: Sandi Hightower RN Position: S RN Member Role: Primary Care Nurse Name: Angelita Almeida RN Position: S RN Member Role: Primary Care Nurse Care Team Related Persons Name: KEY DEWEY Name: AIDA DEWEY Address: [place] [address] Name: SHANNON CARLIN
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
[2023-04-12] MEDS: Nicotine 21 MG PATCH.TD24 TRANSDERMA (16:10)
[2023-04-12 16:37] LABS: MANUAL DIFF FLAG NO
[2023-04-12 16:43] LABS: Basophils Percent Auto 0.3 % (0-2); Eosinophils Absolute Auto 0.1 X10*3/uL (0.0-0.4); Eosinophils Percent Auto 1.3 % (0-4); Hematocrit 36.9 % (37.0-47.0); Hemoglobin 11.9 g/dl (12.0-16.0); Imm Gran Abs Auto 0.03 X10*3/uL (0.00-0.03); Imm Gran Pct Auto 0.5 % (0.0-0.4); Lymphocytes Absolute Auto 1.6 X10*3/uL (1.2-4.9); Lymphocytes Percent Auto 25.8 % (20-40); Mean Corpuscular HGB Conc 32.2 g/dl (31.0-35.0); Mean Corpuscular Volume 86.8 fL (80.0-98.0); Monocytes Absolute Auto 0.4 X10*3/uL (0.1-1.2); Monocytes Percent Auto 7.2 % (2-11); Neutrophils Percent Auto 64.9 % (45-73); Platelet Count 223 X10*3/uL (160-400); Red Blood Count 4.25 X10*6/uL (4.20-5.50); Red Cell Distribution Width 13.9 % (11.0-16.0); White Blood Count 6.1 X10*3/uL (4.8-10.8)
[2023-04-12 16:53] LABS: Anion Gap 11 (12-20); Blood Urea Nitrogen 17 mg/dL (9-16); Calcium 10.2 mg/dL (8.4-10.2); Carbon Dioxide 26 mmol/L (22-29); Chloride 106 mmol/L (96-108); Estimated Glomerular Filt Rate > 60; Glucose Random 87 mg/dL (60-115); Potassium 4.7 mmol/L (3.3-5.1); Sodium 138 mmol/L (135-145)
[2023-04-12 17:01] LABS: Alanine Aminotransferase 28 U/L (0-31); Albumin Level 4.1 g/dL (3.5-5.0); Alkaline Phosphatase 101 U/L (39-117); Aspartate Amino Transferase 27 U/L (5-31); Bilirubin Direct 0.2 mg/dL (0.0-0.5); Bilirubin Total 0.5 mg/dL (0.0-1.0); Total Protein 7.5 g/dL (6.5-8.0)
[2023-04-12 17:16] LABS: Vitamin D 25-OH Total 30.6 ng/mL (>30)
[2023-04-12] MEDS: hydrOXYzine HCL 25 MG TABLET PO (18:09)
[2023-04-12 19:40] VITALS: BP 117/62; PULSE 88; RESP 18; TEMP 36.2; O2SAT 100
[2023-04-12] MEDS: Prazosin HCL 5 MG CAPSULE PO (20:23)
[2023-04-12] MEDS: Gabapentin 400 MG CAPSULE PO (20:23)
[2023-04-12] MEDS: Propranolol HCL 10 MG TABLET PO (20:23)
[2023-04-12] MEDS: Magnesium Hydrox/Alum Hydrox 30 ML ORAL.SUSP PO (20:24)
[2023-04-12] MEDS: Perphenazine 8 MG TABLET PO (20:24)
[2023-04-12] MEDS: QUEtiapine Fumarate 100 MG TABLET PO (20:27)
[2023-04-12] MEDS: clonazePAM 0.5 MG TABLET PO (20:27)
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
[2023-04-12] MEDS: QUEtiapine Fumarate 300 MG TABLET PO (23:23)
[2023-04-12] MEDS: Acetaminophen 325 MG TABLET 650 MG PO (23:29)
[2023-04-13 05:08] LABS: HIV Num 1 1.55 S/CO (0.00-0.99)
[2023-04-13 06:03] LABS: HIV AB/AG Nonreactive (Nonreactive); HIV Num 2 0.07 S/CO; HIV Num 3 0.06 S/CO
[2023-04-13 09:14] LABS: Estimated Average Glucose 100 mg/dL; Hemoglobin A1c % 5.1 %
[2023-04-13 09:48] LABS: Alanine Aminotransferase 32 U/L (0-31); Albumin Level 3.8 g/dL (3.5-5.0); Alkaline Phosphatase 102 U/L (39-117); Anion Gap 12 (12-20); Aspartate Amino Transferase 27 U/L (5-31); Bilirubin Direct 0.1 mg/dL (0.0-0.5); Bilirubin Total 0.4 mg/dL (0.0-1.0); Blood Urea Nitrogen 24 mg/dL (9-16); Calcium 9.5 mg/dL (8.4-10.2); Carbon Dioxide 22 mmol/L (22-29); Chloride 107 mmol/L (96-108); Cholesterol 211 mg/dL; Estimated Glomerular Filt Rate > 60; Glucose Fasting 96 mg/dL (60-99); HDL Cholesterol 48 mg/dL; LDL Cholesterol Calculated 142 mg/dl; Potassium 4.6 mmol/L (3.3-5.1); Sodium 136 mmol/L (135-145); Triglycerides 107 mg/dL
[2023-04-13 10:00] VITALS: BP 141/75; PULSE 96; TEMP 36.6; O2SAT 98
[2023-04-13 10:10] LABS: Thyroid Stimulating Hormone 1.77 uIU/mL (0.32-4.0)
[2023-04-13] MEDS: Nicotine 21 MG PATCH.TD24 TRANSDERMA (10:15)
[2023-04-13] MEDS: Gabapentin 400 MG CAPSULE PO ×3 (10:16→21:12)
[2023-04-13] MEDS: Propranolol HCL 10 MG TABLET PO ×2 (10:16→20:16)
[2023-04-13] MEDS: Perphenazine 8 MG TABLET PO ×3 (10:16→21:12)
[2023-04-13] MEDS: clonazePAM 0.5 MG TABLET PO ×2 (10:16→20:16)
[2023-04-13] MEDS: Omeprazole 20 MG CAPSULE.DR PO (10:17)
[2023-04-13 10:30] LABS: Folate 16.5 ng/mL (> or = 4.0); Vitamin B12 332 pg/mL (200-900)
[2023-04-13] MEDS: Acetaminophen 325 MG TABLET 650 MG PO ×2 (13:32→21:31)
[2023-04-13] MEDS: cloNIDine HCL 0.1 MG TABLET PO ×3 (13:37→20:16)
[2023-04-13] MEDS: Magnesium Hydrox/Alum Hydrox 30 ML ORAL.SUSP PO (14:33)
[2023-04-13] MEDS: QUEtiapine Fumarate 100 MG TABLET PO ×2 (14:40→20:16)
--- NOTE | 2023-04-13 15:22 | P.PNPSI_ITS ---
Subjective Subjective Date of Service: 04/13/23 Reason For Visit: PTSD, MDD, recurrent, severe w/out psychotic feat Interim History: calm, cooperative. focused on homelessness, chronic ortho complaints, chronic pain. per staffasking for lidocaine patches and capsaicin. Mental Status Exam Mental Status Exam Narrative: calm, cooperative. a bit irritable. adequately dressed and groomed. no PMA/PMR. speech nml rate, amount, loudness, tone, latency. thoughts linear and logical. affect constricted, normo-intense, min-labile, irritable. no SI/HI/AVH expressed. Diagnostics Vital Signs (24Hr): Vital Signs - 24 hr 04/12/23 19:40 04/13/23 10:00 Temperature 97.2 F 97.8 F Pulse Rate 88 96 Respiratory Rate 18 Blood Pressure 117/62 141/75 H Pulse Oximetry 100 98 Oxygen Delivery Method Room Air Room Air Labs 04/12/23 16:33 04/13/23 08:32 Labs: Laboratory Results - last 48 hr 04/12/23 04/12/23 04/12/23 16:33 16:33 16:33 WBC 6.1 RBC 4.25 D Hgb 11.9 L Hct 36.9 L MCV 86.8 MCH 28.0 MCHC 32.2 RDW 13.9 Plt Count 223 MPV 9.0 L Immature Gran % (Auto) 0.5 H Neut % (Auto) 64.9 Lymph % (Auto) 25.8 [place] % (Auto) 7.2 Eos % (Auto) 1.3 Baso % (Auto) 0.3 Lymph # (Auto) 1.6 [place] # (Auto) 0.4 Eos # (Auto) 0.1 Baso # (Auto) 0.0 Abs Immat Gran (auto) 0.03 Absolute Neuts (auto) 4.0 Absolute Nucleated RBC 0.000 Nucleated RBC % (auto) 0.0 Sodium 138 Potassium 4.7 Chloride 106 Carbon Dioxide 26 Anion Gap 11 L BUN 17 H Creatinine 0.93 Estim Creat Clear Calc TNP Estimated GFR > 60 Random Glucose 87 Fasting Glucose Estimat Average Glucose Hemoglobin A1c % Calcium 10.2 D Total Bilirubin Direct Bilirubin AST ALT Alkaline Phosphatase Total Protein Albumin Triglycerides Cholesterol LDL Cholesterol, Calc HDL Cholesterol Vitamin B12 25-OH Vitamin D Total Folate TSH Free T4 HIV 1&2 Ab/P24 Ag 4thGn Nonreactive 04/12/23 04/13/23 04/13/23 16:33 08:32 08:32 WBC RBC Hgb Hct MCV MCH MCHC RDW Plt Count MPV Immature Gran % (Auto) Neut % (Auto) Lymph % (Auto) [place] % (Auto) Eos % (Auto) Baso % (Auto) Lymph # (Auto) [place] # (Auto) Eos # (Auto) Baso # (Auto) Abs Immat Gran (auto) Absolute Neuts (auto) Absolute Nucleated RBC Nucleated RBC % (auto) Sodium 136 Potassium 4.6 Chloride 107 Carbon Dioxide 22 Anion Gap 12 BUN 24 H Creatinine 0.92 Estim Creat Clear Calc TNP Estimated GFR > 60 Random Glucose Fasting Glucose 96 Estimat Average Glucose 100 Hemoglobin A1c % 5.1 Calcium 9.5 D Total Bilirubin 0.5 0.4 Direct Bilirubin 0.2 0.1 AST 27 27 ALT 28 32 H Alkaline Phosphatase 101 102 Total Protein 7.5 7.0 Albumin 4.1 3.8 Triglycerides 107 Cholesterol 211 LDL Cholesterol, Calc 142 HDL Cholesterol 48 Vitamin B12 25-OH Vitamin D Total 30.6 Folate TSH 1.77 Free T4 0.90 HIV 1&2 Ab/P24 Ag 4thGn 04/13/23 08:32 WBC RBC Hgb Hct MCV MCH MCHC RDW Plt Count MPV Immature Gran % (Auto) Neut % (Auto) Lymph % (Auto) [place] % (Auto) Eos % (Auto) Baso % (Auto) Lymph # (Auto) [place] # (Auto) Eos # (Auto) Baso # (Auto) Abs Immat Gran (auto) Absolute Neuts (auto) Absolute Nucleated RBC Nucleated RBC % (auto) Sodium Potassium Chloride Carbon Dioxide Anion Gap BUN Creatinine Estim Creat Clear Calc Estimated GFR Random Glucose Fasting Glucose Estimat Average Glucose Hemoglobin A1c % Calcium Total Bilirubin Direct Bilirubin AST ALT Alkaline Phosphatase Total Protein Albumin Triglycerides Cholesterol LDL Cholesterol, Calc HDL Cholesterol Vitamin B12 332 25-OH Vitamin D Total Folate 16.5 TSH Free T4 HIV 1&2 Ab/P24 Ag 4thGn Medications Medications Current Medications Acetaminophen (Acetaminophen 325 Mg Tablet) 650 mg PO Q6H PRN PRN Reason: Headache/Pain Mild Scale (1-3) Last Admin: 04/13/23 13:32 Dose: 650 mg Al Hydroxide/Mg Hydroxide (Magnesium Hydrox/Alum Hydrox 30 Ml Oral.Susp) 30 ml PO Q6H PRN PRN Reason: Heartburn/Nausea Last Admin: 04/13/23 14:33 Dose: 30 ml Capsaicin (Capsaicin 0.025% Cream 60 Gm Tube) 1 appl TOPICAL TID PRN; Protocol PRN Reason: Pain, Moderate(Pain Scale 4-6) Clonazepam (Clonazepam 0.5 Mg Tablet) 0.5 mg PO BID PRN PRN Reason: Anxiety Last Admin: 04/13/23 10:16 Dose: 0.5 mg Clonidine HCl (Clonidine Hcl 0.1 Mg Tablet) 0.1 mg PO TID DELMAR; Protocol Last Admin: 04/13/23 14:00 Dose: Not Given Gabapentin (Gabapentin 400 Mg Capsule) 400 mg PO TID DELMAR Last Admin: 04/13/23 14:33 Dose: 400 mg Hydroxyzine HCl (Hydroxyzine Hcl 25 Mg Tablet) 25 mg PO Q6H PRN PRN Reason: Anxiety Last Admin: 04/12/23 18:09 Dose: 25 mg Lidocaine (Lidocaine 4 % Patch Adh..Patch) 2 patch TRANSDERMA DAILY [facility]; Protocol Magnesium Hydroxide (Milk Of Magnesia 30 Ml Oral.Susp) 30 ml PO DAILY PRN PRN Reason: Constipation Nicotine (Nicotine 21 Mg Patch.Td24) 21 mg TRANSDERMA DAILY [facility] Last Admin: 04/13/23 10:15 Dose: 21 mg Nicotine Polacrilex (Nicotine Polacrilex 2 Mg Gum) 4 mg BUCCAL Q2H PRN PRN Reason: Nicotine Cravings Omeprazole (Omeprazole 20 Mg Capsule.Dr) 20 mg PO DAILY@0630 [facility] Last Admin: 04/13/23 10:17 Dose: 20 mg Perphenazine (Perphenazine 8 Mg Tablet) 8 mg PO TID DELMAR Last Admin: 04/13/23 14:33 Dose: 8 mg Prazosin HCl (Prazosin Hcl 5 Mg Capsule) 5 mg PO BEDTIME [facility]MAR; Protocol Last Admin: 04/12/23 20:23 Dose: 5 mg Propranolol HCl (Propranolol Hcl 10 Mg Tablet) 10 mg PO BID [facility]MAR; Protocol Last Admin: 04/13/23 10:16 Dose: 10 mg Quetiapine Fumarate (Quetiapine Fumarate 100 Mg Tablet) 100 mg PO BID PRN PRN Reason: Anxiety Last Admin: 04/13/23 14:40 Dose: 100 mg Quetiapine Fumarate (Quetiapine Fumarate 400 Mg Tablet) 400 mg PO BEDTIME [facility] Trazodone HCl (Trazodone Hcl 50 Mg Tablet) 50 mg PO BEDTIME MRX1 PRN PRN Reason: Insomnia Allergies Allergies Allergy/AdvReac Type Severity Reaction Status Date / Time aspirin Allergy Unknown Unknown Verified 03/07/23 13:44 codeine Allergy Unknown Unknown Verified 03/07/23 13:44 haloperidol [From Haldol] Allergy Unknown Unknown Verified 03/07/23 13:44 NSAIDS (Non-Steroidal Allergy Unknown Unknown Verified 03/07/23 13:44 Anti-Inflamma risperidone [From Risperdal] Allergy Unknown Unknown Verified 03/07/23 13:44 tramadol Allergy Unknown Unknown Verified 03/07/23 13:44 trazodone Allergy Unknown Unknown Verified 03/07/23 13:44 prozac Allergy Unknown Unknown Uncoded 03/07/23 13:44 Assessment & Plan Assessment & Plan (1) PTSD (post-traumatic stress disorder): Status: Acute Code(s): F43.10 - Post-traumatic stress disorder, unspecified (2) Polysubstance use disorder: Status: Acute Code(s): F19.90 - Other psychoactive substance use, unspecified, uncomplicated Plan 04/12: restart home medications regimen. seems mostly challenged by housing and pain concerns; explore [facility] supports. 04/13: feeling slightly improved since restart of meds. continue current mgmt. investigate dispo options. pt is asking for DC to respite bed and referral to orthopod services. Reason for continued inpatient stay Substantial Risk for: inability to function and rapid decompensation Time Spent With Patient Time: Total time managing care of this patient today __35__ minutes.
[2023-04-13] MEDS: Capsaicin 0.025% Cream 60 GM TUBE 1 APPL TOPICAL ×2 (17:04→21:32)
[2023-04-13] MEDS: Lidocaine 4 % Patch ADH..PATCH 2 PATCH TRANSDERMA (17:09)
[2023-04-13 20:08] VITALS: BP 136/71; PULSE 98; RESP 18; TEMP 36.4; O2SAT 99
[2023-04-13] MEDS: Prazosin HCL 5 MG CAPSULE PO (20:15)
[2023-04-13] MEDS: QUEtiapine Fumarate 400 MG TABLET PO (21:12)
[2023-04-13] MEDS: Nicotine Polacrilex 2 MG GUM 4 MG BUCCAL (21:32)
[2023-04-14 06:00] VITALS: BP 128/74; PULSE 88; RESP 18; TEMP 36.6; O2SAT 98
[2023-04-14] MEDS: Omeprazole 20 MG CAPSULE.DR PO (06:40)
[2023-04-14] MEDS: Lidocaine 4 % Patch ADH..PATCH 2 PATCH TRANSDERMA (08:14)
[2023-04-14] MEDS: Propranolol HCL 10 MG TABLET PO ×2 (08:15→21:05)
[2023-04-14] MEDS: Nicotine 21 MG PATCH.TD24 TRANSDERMA (08:15)
[2023-04-14] MEDS: hydrOXYzine HCL 25 MG TABLET PO ×2 (08:15→14:24)
[2023-04-14] MEDS: cloNIDine HCL 0.1 MG TABLET PO ×3 (08:16→21:06)
[2023-04-14] MEDS: Acetaminophen 325 MG TABLET 650 MG PO ×3 (08:16→21:06)
[2023-04-14] MEDS: Gabapentin 400 MG CAPSULE PO ×3 (08:16→21:03)
[2023-04-14] MEDS: Perphenazine 8 MG TABLET PO ×3 (08:16→21:05)
[2023-04-14] MEDS: Nicotine Polacrilex 2 MG GUM 4 MG BUCCAL ×2 (10:38→17:07)
[2023-04-14] MEDS: QUEtiapine Fumarate 100 MG TABLET PO ×2 (10:38→21:05)
[2023-04-14] MEDS: clonazePAM 0.5 MG TABLET PO (10:38)
--- NOTE | 2023-04-14 11:37 | PM.EVENT ---
Event Note Date of Service: 04/14/23 Event Note: Patient's CMP, CBC, and vitamin-D labs came back, all unremarkable. Patient negative for HIV. Patient's body wide aches and pains likely psychosomatic. Continue current therapies, including gabapentin. Will sign off for now. Thank you Time Spent With Patient Time: Total time managing care of this patient today ____ minutes.
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
[2023-04-14 14:17] VITALS: BP 106/70; PULSE 80
[2023-04-14] MEDS: Loratadine 10 MG TABLET PO (14:24)
[2023-04-14] MEDS: Docusate Sodium 100 MG CAPSULE PO ×2 (14:25→21:04)
[2023-04-14] MEDS: Thiamine HCL 100 MG TABLET PO (14:25)
[2023-04-14] MEDS: amLODIPine Besylate 5 MG TABLET PO (14:25)
[2023-04-14] MEDS: Benztropine Mesylate 0.5 MG TABLET PO ×2 (14:25→21:05)
[2023-04-14] MEDS: Folic Acid 1 MG TABLET PO (14:25)
[2023-04-14] MEDS: DULoxetine HCl 60 MG CAPSULE.DR PO (14:25)
[2023-04-14 21:00] VITALS: BP 100/51; PULSE 93; RESP 18; TEMP 36.6; O2SAT 98
[2023-04-14] MEDS: Prazosin HCL 5 MG CAPSULE PO (21:03)
[2023-04-14] MEDS: Montelukast Sodium 10 MG TABLET PO (21:04)
[2023-04-14] MEDS: clonazePAM 1 MG TABLET 2 MG PO (21:04)
[2023-04-14] MEDS: QUEtiapine Fumarate 400 MG TABLET PO (21:05)
[2023-04-15] MEDS: Omeprazole 20 MG CAPSULE.DR PO (07:11)
[2023-04-15 08:48] VITALS: BP 123/66; PULSE 86; RESP 16; TEMP 36.9; O2SAT 94
[2023-04-15] MEDS: cloNIDine HCL 0.1 MG TABLET PO ×3 (09:04→20:55)
[2023-04-15] MEDS: Multivitamin TABLET 1 TAB PO (09:04)
[2023-04-15] MEDS: Docusate Sodium 100 MG CAPSULE PO ×2 (09:04→20:55)
[2023-04-15] MEDS: Folic Acid 1 MG TABLET PO (09:04)
[2023-04-15] MEDS: Cyanocobalamin (Vitamin B-12) 1,000 MCG TABLET 1000 MCG PO (09:04)
[2023-04-15] MEDS: DULoxetine HCl 60 MG CAPSULE.DR PO (09:04)
[2023-04-15] MEDS: Benztropine Mesylate 0.5 MG TABLET PO ×2 (09:04→20:58)
[2023-04-15] MEDS: Cholecalciferol (Vitamin D3) 10 MCG TABLET 20 MCG PO (09:04)
[2023-04-15] MEDS: Nicotine Polacrilex 2 MG GUM 4 MG BUCCAL ×3 (09:04→21:12)
[2023-04-15] MEDS: Loratadine 10 MG TABLET PO (09:04)
[2023-04-15] MEDS: Gabapentin 400 MG CAPSULE PO ×3 (09:04→20:58)
[2023-04-15] MEDS: Propranolol HCL 10 MG TABLET PO ×2 (09:04→20:57)
[2023-04-15] MEDS: Perphenazine 8 MG TABLET PO ×3 (09:04→20:58)
[2023-04-15] MEDS: Nicotine 21 MG PATCH.TD24 TRANSDERMA (09:05)
[2023-04-15] MEDS: Thiamine HCL 100 MG TABLET PO (09:05)
[2023-04-15] MEDS: amLODIPine Besylate 5 MG TABLET PO (09:05)
[2023-04-15] MEDS: Fluticasone Propionate Nasal 16 GM SPRAY 1 SPRAY NOSTRIL-B (09:06)
[2023-04-15] MEDS: Fluticasone/Vilanterol 100/25 BLST.W.DEV 1 PUFF INHALE (09:06)
[2023-04-15] MEDS: QUEtiapine Fumarate 100 MG TABLET PO ×2 (11:52→20:56)
--- NOTE | 2023-04-15 12:41 | HO.PSYCHPN ---
Subjective Subjective Date of Service: 04/15/23 Reason For Visit: PTSD, MDD, recurrent, severe w/out psychotic feat Interim History: c/o anxiety, otherwise pleased with restart of full outpt regimen. states clonidine is very helpful for her. agrees to increase clonidine to QID and DC norvasc to prevent hypotension. per staff, racing thoughts. somatic complaints. slept overnight. Mental Status Exam Mental Status Exam Narrative: calm, cooperative. disheveled, dressed in hospital gown. no PMA/PMR. speech nml rate, amount, loudness, tone, latency. thoughts linear and logical. affect constricted, normo-intense, non-labile, irritable. no SI/HI/AVH expressed. Diagnostics Vital Signs (24Hr): Vital Signs - 24 hr 04/14/23 14:17 04/14/23 21:00 04/15/23 08:48 Temperature 97.9 F 98.4 F Pulse Rate 80 93 86 Respiratory Rate 18 16 Blood Pressure 106/70 100/51 L 123/66 Pulse Oximetry 98 94 Oxygen Delivery Method Room Air Room [facility] Labs 04/12/23 16:33 04/13/23 08:32 Medications Medications Current Medications Acetaminophen (Acetaminophen 325 Mg Tablet) 650 mg PO Q6H PRN PRN Reason: Headache/Pain Mild Scale (1-3) Last Admin: 04/14/23 21:06 Dose: 650 mg Al Hydroxide/Mg Hydroxide (Magnesium Hydrox/Alum Hydrox 30 Ml Oral.Susp) 30 ml PO Q6H PRN PRN Reason: Heartburn/Nausea Last Admin: 04/13/23 14:33 Dose: 30 ml Albuterol Sulfate (Albuterol Sulfate 90 Mcg 8 Gm Inhaler) 2 puff INHALE RQ4H PRN PRN Reason: wheeze Benztropine Mesylate (Benztropine Mesylate 0.5 Mg Tablet) 0.5 mg PO BID [facility] Last Admin: 04/15/23 09:04 Dose: 0.5 mg Capsaicin (Capsaicin 0.025% Cream 60 Gm Tube) 1 appl TOPICAL TID PRN; Protocol PRN Reason: Pain, Moderate(Pain Scale 4-6) Last Admin: 04/13/23 21:32 Dose: 1 appl Clonazepam (Clonazepam 0.5 Mg Tablet) 0.5 mg PO BID PRN PRN Reason: Anxiety Last Admin: 04/14/23 10:38 Dose: 0.5 mg Clonazepam (Clonazepam 1 Mg Tablet) 2 mg PO BEDTIME [facility] Last Admin: 04/14/23 21:04 Dose: 2 mg Clonidine HCl (Clonidine Hcl 0.1 Mg Tablet) 0.1 mg PO QID [facility]; Protocol Cyanocobalamin (Cyanocobalamin (Vitamin B-12) 1,000 Mcg Tablet) 1,000 mcg PO DAILY [facility] Last Admin: 04/15/23 09:04 Dose: 1,000 mcg Docusate Sodium (Docusate Sodium 100 Mg Capsule) 100 mg PO BID [facility] Last Admin: 04/15/23 09:04 Dose: 100 mg Duloxetine HCl (Duloxetine Hcl 60 Mg Capsule.Dr) 60 mg PO DAILY [facility] Last Admin: 04/15/23 09:04 Dose: 60 mg Fluticasone Propionate (Fluticasone Propionate Nasal 16 Gm [place]) 1 spray NOSTRIL-B DAILY [facility] Last Admin: 04/15/23 09:06 Dose: 1 spray Fluticasone/Vilanterol (Fluticasone/Vilanterol 100/25 Blst.W.Dev) 1 puff INHALE RDAILY [facility] Last Admin: 04/15/23 09:06 Dose: 1 puff Folic Acid (Folic Acid 1 Mg Tablet) 1 mg PO DAILY [facility] Last Admin: 04/15/23 09:04 Dose: 1 mg Gabapentin (Gabapentin 400 Mg Capsule) 400 mg PO TID [facility] Last Admin: 04/15/23 09:04 Dose: 400 mg Hydroxyzine HCl (Hydroxyzine Hcl 25 Mg Tablet) 25 mg PO Q6H PRN PRN Reason: Anxiety Last Admin: 04/14/23 14:24 Dose: 25 mg Lidocaine (Lidocaine 4 % Patch Adh..Patch) 2 patch TRANSDERMA DAILY [facility]; Protocol Last Admin: 04/15/23 09:13 Dose: Not Given Loratadine (Loratadine 10 Mg Tablet) 10 mg PO DAILY [facility] Last Admin: 04/15/23 09:04 Dose: 10 mg Magnesium Hydroxide (Milk Of Magnesia 30 Ml Oral.Susp) 30 ml PO DAILY PRN PRN Reason: Constipation Montelukast Sodium (Montelukast Sodium 10 Mg Tablet) 10 mg PO BEDTIME [facility] Last Admin: 04/14/23 21:04 Dose: 10 mg Multivitamins/Vitamin C (Multivitamin Tablet) 1 tab PO DAILY [facility] Last Admin: 04/15/23 09:04 Dose: 1 tab Nicotine (Nicotine 21 Mg Patch.Td24) 21 mg TRANSDERMA DAILY [facility] Last Admin: 04/15/23 09:05 Dose: 21 mg Nicotine Polacrilex (Nicotine Polacrilex 2 Mg Gum) 4 mg BUCCAL Q2H PRN PRN Reason: Nicotine Cravings Last Admin: 04/15/23 09:04 Dose: 4 mg Omeprazole (Omeprazole 20 Mg Capsule.Dr) 20 mg PO DAILY@0630 [facility] Last Admin: 04/15/23 07:11 Dose: 20 mg Perphenazine (Perphenazine 8 Mg Tablet) 8 mg PO TID [facility] Last Admin: 04/15/23 09:04 Dose: 8 mg Prazosin HCl (Prazosin Hcl 5 Mg Capsule) 5 mg PO BEDTIME [facility]; Protocol Last Admin: 04/14/23 21:03 Dose: 5 mg Propranolol HCl (Propranolol Hcl 10 Mg Tablet) 10 mg PO BID [facility]; Protocol Last Admin: 04/15/23 09:04 Dose: 10 mg Quetiapine Fumarate (Quetiapine Fumarate 400 Mg Tablet) 400 mg PO BEDTIME [facility] Last Admin: 04/14/23 21:05 Dose: 400 mg Quetiapine Fumarate (Quetiapine Fumarate 100 Mg Tablet) 100 mg PO TID PRN PRN Reason: Anxiety Last Admin: 04/15/23 11:52 Dose: 100 mg Thiamine HCl (Thiamine Hcl 100 Mg Tablet) 100 mg PO DAILY [facility] Last Admin: 04/15/23 09:05 Dose: 100 mg Trazodone HCl (Trazodone Hcl 50 Mg Tablet) 50 mg PO BEDTIME MRX1 PRN PRN Reason: Insomnia Vitamin D (Cholecalciferol (Vitamin D3) 10 Mcg Tablet) 20 mcg PO DAILY [facility] Last Admin: 04/15/23 09:04 Dose: 20 mcg Allergies Allergies Allergy/AdvReac Type Severity Reaction Status Date / Time aspirin Allergy Unknown Unknown Verified 03/07/23 13:44 codeine Allergy Unknown Unknown Verified 03/07/23 13:44 haloperidol [From Haldol] Allergy Unknown Unknown Verified 03/07/23 13:44 NSAIDS (Non-Steroidal Allergy Unknown Unknown Verified 03/07/23 13:44 Anti-Inflamma risperidone [From Risperdal] Allergy Unknown Unknown Verified 03/07/23 13:44 tramadol Allergy Unknown Unknown Verified 03/07/23 13:44 trazodone Allergy Unknown Unknown Verified 03/07/23 13:44 prozac Allergy Unknown Unknown Uncoded 03/07/23 13:44 Assessment & Plan Assessment & Plan (1) PTSD (post-traumatic stress disorder): Status: Acute Code(s): F43.10 - Post-traumatic stress disorder, unspecified (2) Polysubstance use disorder: Status: Acute Code(s): F19.90 - Other psychoactive substance use, unspecified, uncomplicated Plan 04/12: restart home medications regimen. seems mostly challenged by housing and pain concerns; explore [facility] supports. 04/13: feeling slightly improved since restart of meds. continue current mgmt. investigate dispo options. pt is asking for DC to respite bed and referral to orthopod services. 04/14: more of her outpt meds restarted today and tomorrow. focus on dispo plan and meds regimen. planning to discharge as soon as monday to respite, should a bed be available. 04/15: DC norvasc and increase clonidine to 0.1 mg QID for anxiety. otherwise continue current mgmt. c/o anxiety, but mood appears improved and less irritable today. Reason for continued inpatient stay Substantial Risk for: harm to self, inability to function and rapid decompensation Time Spent With Patient Time: Total time managing care of this patient today __25__ minutes.
[2023-04-15] MEDS: Capsaicin 0.025% Cream 60 GM TUBE 1 APPL TOPICAL ×2 (14:41→21:09)
[2023-04-15] MEDS: Lidocaine 4 % Patch ADH..PATCH 2 PATCH TRANSDERMA (14:42)
[2023-04-15] MEDS: Acetaminophen 325 MG TABLET 650 MG PO ×2 (14:50→20:56)
[2023-04-15] MEDS: hydrOXYzine HCL 25 MG TABLET PO (17:27)
[2023-04-15 20:53] VITALS: BP 107/53; PULSE 91; RESP 18; TEMP 36.6; O2SAT 98
[2023-04-15] MEDS: Prazosin HCL 5 MG CAPSULE PO (20:56)
[2023-04-15] MEDS: clonazePAM 1 MG TABLET 2 MG PO (20:56)
[2023-04-15] MEDS: Montelukast Sodium 10 MG TABLET PO (20:57)
[2023-04-15] MEDS: QUEtiapine Fumarate 400 MG TABLET PO (20:58)
[2023-04-16] MEDS: Omeprazole 20 MG CAPSULE.DR PO (06:41)
[2023-04-16 09:14] VITALS: BP 105/53; PULSE 82; RESP 16; TEMP 36.7; O2SAT 98
[2023-04-16] MEDS: Capsaicin 0.025% Cream 60 GM TUBE 1 APPL TOPICAL ×2 (09:26→21:17)
[2023-04-16] MEDS: Fluticasone/Vilanterol 100/25 BLST.W.DEV 1 PUFF INHALE (09:26)
[2023-04-16] MEDS: Gabapentin 400 MG CAPSULE PO ×3 (09:27→21:14)
[2023-04-16] MEDS: DULoxetine HCl 60 MG CAPSULE.DR PO (09:28)
[2023-04-16] MEDS: Cyanocobalamin (Vitamin B-12) 1,000 MCG TABLET 1000 MCG PO (09:28)
[2023-04-16] MEDS: Folic Acid 1 MG TABLET PO (09:28)
[2023-04-16] MEDS: Cholecalciferol (Vitamin D3) 10 MCG TABLET 20 MCG PO (09:28)
[2023-04-16] MEDS: Perphenazine 8 MG TABLET PO ×3 (09:28→21:15)
[2023-04-16] MEDS: Multivitamin TABLET 1 TAB PO (09:28)
[2023-04-16] MEDS: Benztropine Mesylate 0.5 MG TABLET PO ×2 (09:28→21:14)
[2023-04-16] MEDS: cloNIDine HCL 0.1 MG TABLET PO ×4 (09:28→21:16)
[2023-04-16] MEDS: Thiamine HCL 100 MG TABLET PO (09:28)
[2023-04-16] MEDS: Docusate Sodium 100 MG CAPSULE PO ×2 (09:28→21:15)
[2023-04-16] MEDS: Loratadine 10 MG TABLET PO (09:29)
[2023-04-16] MEDS: Nicotine 21 MG PATCH.TD24 TRANSDERMA (09:35)
[2023-04-16] MEDS: clonazePAM 0.5 MG TABLET PO (12:18)
--- NOTE | 2023-04-16 13:05 | P.PNPSI_ITS ---
Subjective Subjective Date of Service: 04/16/23 Reason For Visit: PTSD, MDD, recurrent, severe w/out psychotic feat Interim History: resting in bed late morning. calm, cooperative. c/o pain in knee, heel, shoulder. feels helped by clonidine. BP low with addition of 4th dose yesterday, agreeable to DC propranolol entirely and see how she feels. asking for tylenol 1300 mg TID PRN, which is ordered. per staff, in bed a lot. 02/04 anx/dep. no shower yesterday. safe. no issues. refusing lidocaine patches saying they don't work. propranolol held this morning due to low BP. Mental Status Exam Mental Status Exam Narrative: calm, cooperative. disheveled, dressed in hospital gown. no PMA/PMR. speech nml rate, amount, loudness, tone, latency. thoughts linear and logical. affect constricted, normo-intense, non-labile. no SI/HI/AVH expressed. Diagnostics Vital Signs (24Hr): Vital Signs - 24 hr 04/15/23 20:53 04/16/23 09:14 Temperature 97.9 F 98.1 F Pulse Rate 91 82 Respiratory Rate 18 16 Blood Pressure 107/53 L 105/53 L Pulse Oximetry 98 98 Oxygen Delivery Method Room Air Room Air Labs 04/12/23 16:33 04/13/23 08:32 Medications Medications Current Medications Acetaminophen (Acetaminophen 325 Mg Tablet) 1,300 mg PO TID PRN PRN Reason: Headache/Pain Mild Scale (1-3) Al Hydroxide/Mg Hydroxide (Magnesium Hydrox/Alum Hydrox 30 Ml Oral.Susp) 30 ml PO Q6H PRN PRN Reason: Heartburn/Nausea Last Admin: 04/13/23 14:33 Dose: 30 ml Albuterol Sulfate (Albuterol Sulfate 90 Mcg 8 Gm Inhaler) 2 puff INHALE RQ4H PRN PRN Reason: wheeze Benztropine Mesylate (Benztropine Mesylate 0.5 Mg Tablet) 0.5 mg PO BID [facility] Last Admin: 04/16/23 09:28 Dose: 0.5 mg Capsaicin (Capsaicin 0.025% Cream 60 Gm Tube) 1 appl TOPICAL TID PRN; Protocol PRN Reason: Pain, Moderate(Pain Scale 4-6) Last Admin: 04/16/23 09:26 Dose: 1 appl Clonazepam (Clonazepam 0.5 Mg Tablet) 0.5 mg PO BID PRN PRN Reason: Anxiety Last Admin: 04/16/23 12:18 Dose: 0.5 mg Clonazepam (Clonazepam 1 Mg Tablet) 2 mg PO BEDTIME [facility] Last Admin: 04/15/23 20:56 Dose: 2 mg Clonidine HCl (Clonidine Hcl 0.1 Mg Tablet) 0.1 mg PO QID [facility]; Protocol Last Admin: 04/16/23 09:28 Dose: 0.1 mg Cyanocobalamin (Cyanocobalamin (Vitamin B-12) 1,000 Mcg Tablet) 1,000 mcg PO DAILY [facility] Last Admin: 04/16/23 09:28 Dose: 1,000 mcg Docusate Sodium (Docusate Sodium 100 Mg Capsule) 100 mg PO BID [facility] Last Admin: 04/16/23 09:28 Dose: 100 mg Duloxetine HCl (Duloxetine Hcl 60 Mg Capsule.Dr) 60 mg PO DAILY [facility] Last Admin: 04/16/23 09:28 Dose: 60 mg Fluticasone Propionate (Fluticasone Propionate Nasal 16 Gm [place]) 1 spray NOSTRIL-B DAILY [facility] Last Admin: 04/16/23 09:43 Dose: Not Given Fluticasone/Vilanterol (Fluticasone/Vilanterol 100/25 Blst.W.Dev) 1 puff INHALE RDAILY [facility] Last Admin: 04/16/23 09:26 Dose: 1 puff Folic Acid (Folic Acid 1 Mg Tablet) 1 mg PO DAILY [facility] Last Admin: 04/16/23 09:28 Dose: 1 mg Gabapentin (Gabapentin 400 Mg Capsule) 400 mg PO TID [facility] Last Admin: 04/16/23 09:27 Dose: 400 mg Hydroxyzine HCl (Hydroxyzine Hcl 25 Mg Tablet) 25 mg PO Q6H PRN PRN Reason: Anxiety Last Admin: 04/15/23 17:27 Dose: 25 mg Lidocaine (Lidocaine 4 % Patch Adh..Patch) 2 patch TRANSDERMA DAILY [facility]; Protocol Last Admin: 04/16/23 09:31 Dose: Not Given Loratadine (Loratadine 10 Mg Tablet) 10 mg PO DAILY [facility] Last Admin: 04/16/23 09:29 Dose: 10 mg Magnesium Hydroxide (Milk Of Magnesia 30 Ml Oral.Susp) 30 ml PO DAILY PRN PRN Reason: Constipation Montelukast Sodium (Montelukast Sodium 10 Mg Tablet) 10 mg PO BEDTIME [facility] Last Admin: 04/15/23 20:57 Dose: 10 mg Multivitamins/Vitamin C (Multivitamin Tablet) 1 tab PO DAILY [facility] Last Admin: 04/16/23 09:28 Dose: 1 tab Nicotine (Nicotine 21 Mg Patch.Td24) 21 mg TRANSDERMA DAILY [facility] Last Admin: 04/16/23 09:35 Dose: 21 mg Nicotine Polacrilex (Nicotine Polacrilex 2 Mg Gum) 4 mg BUCCAL Q2H PRN PRN Reason: Nicotine Cravings Last Admin: 04/15/23 21:12 Dose: 4 mg Omeprazole (Omeprazole 20 Mg Capsule.Dr) 20 mg PO DAILY@0630 [facility] Last Admin: 04/16/23 06:41 Dose: 20 mg Perphenazine (Perphenazine 8 Mg Tablet) 8 mg PO TID [facility] Last Admin: 04/16/23 09:28 Dose: 8 mg Prazosin HCl (Prazosin Hcl 5 Mg Capsule) 5 mg PO BEDTIME [facility]; Protocol Last Admin: 04/15/23 20:56 Dose: 5 mg Quetiapine Fumarate (Quetiapine Fumarate 400 Mg Tablet) 400 mg PO BEDTIME [facility] Last Admin: 04/15/23 20:58 Dose: 400 mg Quetiapine Fumarate (Quetiapine Fumarate 100 Mg Tablet) 100 mg PO TID PRN PRN Reason: Anxiety Last Admin: 04/15/23 20:56 Dose: 100 mg Thiamine HCl (Thiamine Hcl 100 Mg Tablet) 100 mg PO DAILY [facility] Last Admin: 04/16/23 09:28 Dose: 100 mg Trazodone HCl (Trazodone Hcl 50 Mg Tablet) 50 mg PO BEDTIME MRX1 PRN PRN Reason: Insomnia Vitamin D (Cholecalciferol (Vitamin D3) 10 Mcg Tablet) 20 mcg PO DAILY [facility] Last Admin: 04/16/23 09:28 Dose: 20 mcg Allergies Allergies Allergy/AdvReac Type Severity Reaction Status Date / Time aspirin Allergy Unknown Unknown Verified 03/07/23 13:44 codeine Allergy Unknown Unknown Verified 03/07/23 13:44 haloperidol [From Haldol] Allergy Unknown Unknown Verified 03/07/23 13:44 NSAIDS (Non-Steroidal Allergy Unknown Unknown Verified 03/07/23 13:44 Anti-Inflamma risperidone [From Risperdal] Allergy Unknown Unknown Verified 03/07/23 13:44 tramadol Allergy Unknown Unknown Verified 03/07/23 13:44 trazodone Allergy Unknown Unknown Verified 03/07/23 13:44 prozac Allergy Unknown Unknown Uncoded 03/07/23 13:44 Assessment & Plan Assessment & Plan (1) PTSD (post-traumatic stress disorder): Status: Acute Code(s): F43.10 - Post-traumatic stress disorder, unspecified (2) Polysubstance use disorder: Status: Acute Code(s): F19.90 - Other psychoactive substance use, unspecified, uncomplicated Plan 04/12: restart home medications regimen. seems mostly challenged by housing and pain concerns; explore [facility] supports. 04/13: feeling slightly improved since restart of meds. continue current mgmt. investigate dispo options. pt is asking for DC to respite bed and referral to orthopod services. 04/14: more of her outpt meds restarted today and tomorrow. focus on dispo plan and meds regimen. planning to discharge as soon as monday to respite, should a bed be available. 04/15: DC norvasc and increase clonidine to 0.1 mg QID for anxiety. otherwise continue current mgmt. c/o anxiety, but mood appears improved and less irritable today. 04/16: low BP, DC propranolol to see if clonidine QID is sufficient to control BP. otherwise continue current mgmt. may DC as soon as tomorrow to respite. Reason for continued inpatient stay Substantial Risk for: harm to self, inability to function and rapid decompe nsation Time Spent With Patient Time: Total time managing care of this patient today ____ minutes.
[2023-04-16 13:07] VITALS: BP 120/65; PULSE 74
[2023-04-16 17:03] VITALS: BP 127/64; PULSE 87
[2023-04-16] MEDS: QUEtiapine Fumarate 100 MG TABLET PO (17:04)
[2023-04-16] MEDS: Acetaminophen 325 MG TABLET 1300 MG PO ×2 (17:04→23:03)
[2023-04-16 21:05] VITALS: BP 124/56; PULSE 94; RESP 16; TEMP 36.6; O2SAT 98
[2023-04-16] MEDS: Prazosin HCL 5 MG CAPSULE PO (21:13)
[2023-04-16] MEDS: Albuterol Sulfate 90 MCG 8 GM INHALER 2 PUFF INHALE (21:13)
[2023-04-16] MEDS: clonazePAM 1 MG TABLET 2 MG PO (21:15)
[2023-04-16] MEDS: Montelukast Sodium 10 MG TABLET PO (21:16)
[2023-04-16] MEDS: QUEtiapine Fumarate 400 MG TABLET PO (21:16)
[2023-04-16] MEDS: Nicotine Polacrilex 2 MG GUM 4 MG BUCCAL (21:28)
[2023-04-16] MEDS: guaiFENesin LA 600 MG TAB.ER.12H PO (22:00)
[2023-04-17] MEDS: Omeprazole 20 MG CAPSULE.DR PO (06:45)
[2023-04-17] MEDS: Acetaminophen 325 MG TABLET 1300 MG PO ×3 (06:46→20:19)
[2023-04-17] MEDS: Nicotine Polacrilex 2 MG GUM 4 MG BUCCAL ×3 (06:47→19:25)
[2023-04-17] MEDS: clonazePAM 0.5 MG TABLET PO (06:50)
[2023-04-17] MEDS: QUEtiapine Fumarate 100 MG TABLET PO ×3 (06:50→19:25)
[2023-04-17 09:01] VITALS: BP 132/70; PULSE 85; RESP 18; TEMP 36.7; O2SAT 100
[2023-04-17] MEDS: Fluticasone/Vilanterol 100/25 BLST.W.DEV 1 PUFF INHALE (10:48)
[2023-04-17] MEDS: Nicotine 21 MG PATCH.TD24 TRANSDERMA (10:49)
[2023-04-17] MEDS: Thiamine HCL 100 MG TABLET PO (10:49)
[2023-04-17] MEDS: Cholecalciferol (Vitamin D3) 10 MCG TABLET 20 MCG PO (10:49)
[2023-04-17] MEDS: Perphenazine 8 MG TABLET PO ×3 (10:49→20:21)
[2023-04-17] MEDS: Gabapentin 400 MG CAPSULE PO ×3 (10:49→20:20)
[2023-04-17] MEDS: Benztropine Mesylate 0.5 MG TABLET PO ×2 (10:50→20:21)
[2023-04-17] MEDS: Loratadine 10 MG TABLET PO (10:50)
[2023-04-17] MEDS: cloNIDine HCL 0.1 MG TABLET PO ×4 (10:50→20:21)
[2023-04-17] MEDS: Multivitamin TABLET 1 TAB PO (10:50)
[2023-04-17] MEDS: Cyanocobalamin (Vitamin B-12) 1,000 MCG TABLET 1000 MCG PO (10:50)
[2023-04-17] MEDS: Docusate Sodium 100 MG CAPSULE PO ×2 (10:50→20:21)
[2023-04-17] MEDS: DULoxetine HCl 60 MG CAPSULE.DR PO (10:50)
[2023-04-17] MEDS: Folic Acid 1 MG TABLET PO (10:50)
[2023-04-17] MEDS: hydrOXYzine HCL 25 MG TABLET PO ×2 (10:52→19:13)
[2023-04-17 12:20] VITALS: BP 129/74; PULSE 89
--- NOTE | 2023-04-17 12:51 | HO.PSYCHPN ---
Subjective Subjective Date of Service: 04/17/23 Reason For Visit: PTSD, MDD, recurrent, severe w/out psychotic feat Interim History: calm, cooperative. feeling anxious, angry. some things going on with her kids upsetting her. feels clonidine is helpful for her anxiety, agrees to have 0.1 mg PRN added to regimen. discussed dispo, awaiting respite bed. per staff, feeling anxious. saying if she had had to D/C yesterday she would not have been safe. [facility] case therapist to see her this week. Mental Status Exam Mental Status Exam Narrative: calm, cooperative. disheveled, dressed in hospital gown. no PMA/PMR. speech nml rate, amount, loudness, tone, latency. thoughts linear and logical. affect constricted, normo-intense, non-labile. no SI/HI/AVH expressed. Diagnostics Vital Signs (24Hr): Vital Signs - 24 hr 04/16/23 13:07 04/16/23 17:03 04/16/23 21:05 Temperature 98 F Pulse Rate 74 87 94 Respiratory Rate 16 Blood Pressure 120/65 127/64 124/56 L Pulse Oximetry 98 Oxygen Delivery Method Room Air 04/17/23 09:01 04/17/23 12:20 Temperature 98.1 F Pulse Rate 85 89 Respiratory Rate 18 Blood Pressure 132/70 129/74 Pulse Oximetry 100 Oxygen Delivery Method Room Air Labs 04/12/23 16:33 04/13/23 08:32 Medications Medications Current Medications Acetaminophen (Acetaminophen 325 Mg Tablet) 1,300 mg PO TID PRN PRN Reason: Headache/Pain Mild Scale (1-3) Last Admin: 04/17/23 06:46 Dose: 1,300 mg Al Hydroxide/Mg Hydroxide (Magnesium Hydrox/Alum Hydrox 30 Ml Oral.Susp) 30 ml PO Q6H PRN PRN Reason: Heartburn/Nausea Last Admin: 04/13/23 14:33 Dose: 30 ml Albuterol Sulfate (Albuterol Sulfate 90 Mcg 8 Gm Inhaler) 2 puff INHALE RQ4H PRN PRN Reason: wheeze Last Admin: 04/16/23 21:13 Dose: 2 puff Benztropine Mesylate (Benztropine Mesylate 0.5 Mg Tablet) 0.5 mg PO BID [facility] Last Admin: 04/17/23 10:50 Dose: 0.5 mg Capsaicin (Capsaicin 0.025% Cream 60 Gm Tube) 1 appl TOPICAL TID PRN; Protocol PRN Reason: Pain, Moderate(Pain Scale 4-6) Last Admin: 04/16/23 21:17 Dose: 1 appl Clonazepam (Clonazepam 0.5 Mg Tablet) 0.5 mg PO BID PRN PRN Reason: Anxiety Last Admin: 04/17/23 06:50 Dose: 0.5 mg Clonazepam (Clonazepam 1 Mg Tablet) 2 mg PO BEDTIME [facility] Last Admin: 04/16/23 21:15 Dose: 2 mg Clonidine HCl (Clonidine Hcl 0.1 Mg Tablet) 0.1 mg PO QID [facility]; Protocol Last Admin: 04/17/23 12:29 Dose: 0.1 mg Clonidine HCl (Clonidine Hcl 0.1 Mg Tablet) 0.1 mg PO Q4H PRN; Protocol PRN Reason: anxiety Cyanocobalamin (Cyanocobalamin (Vitamin B-12) 1,000 Mcg Tablet) 1,000 mcg PO DAILY [facility] Last Admin: 04/17/23 10:50 Dose: 1,000 mcg Docusate Sodium (Docusate Sodium 100 Mg Capsule) 100 mg PO BID [facility] Last Admin: 04/17/23 10:50 Dose: 100 mg Duloxetine HCl (Duloxetine Hcl 60 Mg Capsule.Dr) 60 mg PO DAILY [facility] Last Admin: 04/17/23 10:50 Dose: 60 mg Fluticasone Propionate (Fluticasone Propionate Nasal 16 Gm [place]) 1 spray NOSTRIL-B DAILY [facility] Last Admin: 04/17/23 11:07 Dose: Not Given Fluticasone/Vilanterol (Fluticasone/Vilanterol 100/25 Blst.W.Dev) 1 puff INHALE RDAILY [facility] Last Admin: 04/17/23 10:48 Dose: 1 puff Folic Acid (Folic Acid 1 Mg Tablet) 1 mg PO DAILY [facility] Last Admin: 04/17/23 10:50 Dose: 1 mg Gabapentin (Gabapentin 400 Mg Capsule) 400 mg PO TID [facility] Last Admin: 04/17/23 10:49 Dose: 400 mg Guaifenesin (Guaifenesin [place] 600 Mg Tab.Er.12h) 600 mg PO BID PRN PRN Reason: Congestion Last Admin: 04/16/23 22:00 Dose: 600 mg Hydroxyzine HCl (Hydroxyzine Hcl 25 Mg Tablet) 25 mg PO Q6H PRN PRN Reason: Anxiety Last Admin: 04/17/23 10:52 Dose: 25 mg Lidocaine (Lidocaine 4 % Patch Adh..Patch) 2 patch TRANSDERMA DAILY [facility]; Protocol Last Admin: 04/16/23 09:31 Dose: Not Given Loratadine (Loratadine 10 Mg Tablet) 10 mg PO DAILY [facility] Last Admin: 04/17/23 10:50 Dose: 10 mg Magnesium Hydroxide (Milk Of Magnesia 30 Ml Oral.Susp) 30 ml PO DAILY PRN PRN Reason: Constipation Montelukast Sodium (Montelukast Sodium 10 Mg Tablet) 10 mg PO BEDTIME [facility] Last Admin: 04/16/23 21:16 Dose: 10 mg Multi-Ingred Cream/Lotion/Oil/Oint (Mineral Oil/Petrolatum,White 106 Gm Tube) 1 appl TOPICAL BID [facility]; Protocol Multivitamins/Vitamin C (Multivitamin Tablet) 1 tab PO DAILY [facility] Last Admin: 04/17/23 10:50 Dose: 1 tab Nicotine (Nicotine 21 Mg Patch.Td24) 21 mg TRANSDERMA DAILY [facility] Last Admin: 04/17/23 10:49 Dose: 21 mg Nicotine Polacrilex (Nicotine Polacrilex 2 Mg Gum) 4 mg BUCCAL Q2H PRN PRN Reason: Nicotine Cravings Last Admin: 04/17/23 11:00 Dose: 4 mg Omeprazole (Omeprazole 20 Mg Capsule.Dr) 20 mg PO DAILY@0630 [facility] Last Admin: 04/17/23 06:45 Dose: 20 mg Perphenazine (Perphenazine 8 Mg Tablet) 8 mg PO TID [facility] Last Admin: 04/17/23 10:49 Dose: 8 mg Prazosin HCl (Prazosin Hcl 5 Mg Capsule) 5 mg PO BEDTIME [facility]; Protocol Last Admin: 04/16/23 21:13 Dose: 5 mg Quetiapine Fumarate (Quetiapine Fumarate 400 Mg Tablet) 400 mg PO BEDTIME [facility] Last Admin: 04/16/23 21:16 Dose: 400 mg Quetiapine Fumarate (Quetiapine Fumarate 100 Mg Tablet) 100 mg PO TID PRN PRN Reason: Anxiety Last Admin: 04/17/23 11:00 Dose: 100 mg Thiamine HCl (Thiamine Hcl 100 Mg Tablet) 100 mg PO DAILY [facility] Last Admin: 04/17/23 10:49 Dose: 100 mg Trazodone HCl (Trazodone Hcl 50 Mg Tablet) 50 mg PO BEDTIME MRX1 PRN PRN Reason: Insomnia Vitamin D (Cholecalciferol (Vitamin D3) 10 Mcg Tablet) 20 mcg PO DAILY [facility] Last Admin: 04/17/23 10:49 Dose: 20 mcg Allergies Allergies Allergy/AdvReac Type Severity Reaction Status Date / Time aspirin Allergy Unknown Unknown Verified 03/07/23 13:44 codeine Allergy Unknown Unknown Verified 03/07/23 13:44 haloperidol [From Haldol] Allergy Unknown Unknown Verified 03/07/23 13:44 NSAIDS (Non-Steroidal Allergy Unknown Unknown Verified 03/07/23 13:44 Anti-Inflamma risperidone [From Risperdal] Allergy Unknown Unknown Verified 03/07/23 13:44 tramadol Allergy Unknown Unknown Verified 03/07/23 13:44 trazodone Allergy Unknown Unknown Verified 03/07/23 13:44 prozac Allergy Unknown Unknown Uncoded 03/07/23 13:44 Assessment & Plan Assessment & Plan (1) PTSD (post-traumatic stress disorder): Status: Acute Code(s): F43.10 - Post-traumatic stress disorder, unspecified (2) Polysubstance use disorder: Status: Acute Code(s): F19.90 - Other psychoactive substance use, unspecified, uncomplicated Plan 04/12: restart home medications regimen. seems mostly challenged by housing and pain concerns; explore [facility] supports. 04/13: feeling slightly improved since restart of meds. continue current mgmt. investigate dispo options. pt is asking for DC to respite bed and referral to orthopod services. 04/14: more of her outpt meds restarted today and tomorrow. focus on dispo plan and meds regimen. planning to discharge as soon as monday to respite, should a bed be available. 04/15: DC norvasc and increase clonidine to 0.1 mg QID for anxiety. otherwise continue current mgmt. c/o anxiety, but mood appears improved and less irritable today. 04/16: low BP, DC propranolol to see if clonidine QID is sufficient to control BP. otherwise continue current mgmt. may DC as soon as tomorrow to respite. 04/17: BP has come up a tad today. add clonidine PRN to regimen per pt request. no respite beds today. pt reported that if she had had to discharge yesterday she would not have been safe, overheard on the phone to have said today that if she is discharged to her home she will kill herself. Reason for continued inpatient stay Substantial Risk for: harm to self, inability to function and rapid decompensation Time Spent With Patient Time: Total time managing care of this patient today __25__ minutes.
[2023-04-17] MEDS: Mineral Oil/Petrolatum,White 106 GM Tube 1 APPL TOPICAL ×2 (14:24→20:27)
[2023-04-17 18:00] VITALS: BP 114/57; PULSE 95; TEMP 36.6; O2SAT 100
[2023-04-17] MEDS: Lidocaine 4 % Patch ADH..PATCH 2 PATCH TRANSDERMA (19:16)
[2023-04-17] MEDS: QUEtiapine Fumarate 400 MG TABLET PO (20:20)
[2023-04-17] MEDS: clonazePAM 1 MG TABLET 2 MG PO (20:20)
[2023-04-17] MEDS: Prazosin HCL 5 MG CAPSULE PO (20:21)
[2023-04-17] MEDS: Montelukast Sodium 10 MG TABLET PO (20:21)
[2023-04-17] MEDS: Capsaicin 0.025% Cream 60 GM TUBE 1 APPL TOPICAL (20:27)
[2023-04-17] MEDS: guaiFENesin LA 600 MG TAB.ER.12H PO (22:47)
[2023-04-17] MEDS: Albuterol Sulfate 90 MCG 8 GM INHALER 2 PUFF INHALE (22:47)
[2023-04-18] MEDS: Acetaminophen 325 MG TABLET 1300 MG PO ×2 (06:10→14:52)
[2023-04-18] MEDS: QUEtiapine Fumarate 100 MG TABLET PO ×2 (06:11→13:43)
[2023-04-18] MEDS: Omeprazole 20 MG CAPSULE.DR PO (06:11)
[2023-04-18] MEDS: guaiFENesin LA 600 MG TAB.ER.12H PO (06:15)
[2023-04-18 08:00] VITALS: BP 109/60; PULSE 90; RESP 18; TEMP 36.7; O2SAT 98
[2023-04-18] MEDS: Loratadine 10 MG TABLET PO (09:14)
[2023-04-18] MEDS: cloNIDine HCL 0.1 MG TABLET PO ×2 (09:14→13:43)
[2023-04-18] MEDS: DULoxetine HCl 60 MG CAPSULE.DR PO (09:14)
[2023-04-18] MEDS: Gabapentin 400 MG CAPSULE PO ×2 (09:15→14:01)
[2023-04-18] MEDS: Folic Acid 1 MG TABLET PO (09:15)
[2023-04-18] MEDS: Cholecalciferol (Vitamin D3) 10 MCG TABLET 20 MCG PO (09:15)
[2023-04-18] MEDS: Cyanocobalamin (Vitamin B-12) 1,000 MCG TABLET 1000 MCG PO (09:15)
[2023-04-18] MEDS: Perphenazine 8 MG TABLET PO ×2 (09:16→14:00)
[2023-04-18] MEDS: Benztropine Mesylate 0.5 MG TABLET PO (09:16)
[2023-04-18] MEDS: Thiamine HCL 100 MG TABLET PO (09:16)
[2023-04-18] MEDS: Docusate Sodium 100 MG CAPSULE PO (09:16)
[2023-04-18] MEDS: Multivitamin TABLET 1 TAB PO (09:17)
[2023-04-18] MEDS: Nicotine 21 MG PATCH.TD24 TRANSDERMA (09:17)
[2023-04-18] MEDS: Albuterol Sulfate 90 MCG 8 GM INHALER 2 PUFF INHALE (09:18)
--- NOTE | 2023-04-18 09:29 | HO.PSYCHPN ---
Subjective Subjective Date of Service: 04/18/23 Reason For Visit: PTSD, MDD, recurrent, severe w/out psychotic feat Subjective Notes: Conditional Voluntary Medication Compliance: Yes Side effects from medications: No Review of Systems Constitutional: Reports as per HPI Eyes: Reports as per HPI Reports as per HPI Cardiovascular: Reports as per HPI Respiratory: Reports as per HPI Gastrointestinal: Reports as per HPI Genitourinary: Reports as per HPI Musculoskeletal: Reports as per HPI Skin/Breast: Reports as per HPI Reports as per HPI Psychiatric: Reports as per HPI Endocrine: Reports as per HPI Hematologic/Lymphatic: Reports as per HPI Allergic/Immunologic: Reports as per HPI Diagnostics Vital Signs (24Hr): Vital Signs - 24 hr 04/17/23 12:20 04/17/23 18:00 Temperature 97.8 F Pulse Rate 89 95 Blood Pressure 129/74 114/57 L Pulse Oximetry 100 Oxygen Delivery Method Room Air Labs 04/12/23 16:33 04/13/23 08:32 Medications Medications Current Medications Acetaminophen (Acetaminophen 325 Mg Tablet) 1,300 mg PO TID PRN PRN Reason: Headache/Pain Mild Scale (1-3) Last Admin: 04/18/23 06:10 Dose: 1,300 mg Al Hydroxide/Mg Hydroxide (Magnesium Hydrox/Alum Hydrox 30 Ml Oral.Susp) 30 ml PO Q6H PRN PRN Reason: Heartburn/Nausea Last Admin: 04/13/23 14:33 Dose: 30 ml Albuterol Sulfate (Albuterol Sulfate 90 Mcg 8 Gm Inhaler) 2 puff INHALE RQ4H PRN PRN Reason: wheeze Last Admin: 04/18/23 09:18 Dose: 2 puff Benztropine Mesylate (Benztropine Mesylate 0.5 Mg Tablet) 0.5 mg PO BID DELAMR Last Admin: 04/18/23 09:16 Dose: 0.5 mg Capsaicin (Capsaicin 0.025% Cream 60 Gm Tube) 1 appl TOPICAL TID PRN; Protocol PRN Reason: Pain, Moderate(Pain Scale 4-6) Last Admin: 04/17/23 20:27 Dose: 1 appl Clonazepam (Clonazepam 1 Mg Tablet) 2 mg PO BEDTIME DELMAR Last Admin: 04/17/23 20:20 Dose: 2 mg Clonidine HCl (Clonidine Hcl 0.1 Mg Tablet) 0.1 mg PO QID DELMAR; Protocol Last Admin: 04/18/23 09:14 Dose: 0.1 mg Clonidine HCl (Clonidine Hcl 0.1 Mg Tablet) 0.1 mg PO Q4H PRN; Protocol PRN Reason: anxiety Cyanocobalamin (Cyanocobalamin (Vitamin B-12) 1,000 Mcg Tablet) 1,000 mcg PO DAILY [facility] Last Admin: 04/18/23 09:15 Dose: 1,000 mcg Docusate Sodium (Docusate Sodium 100 Mg Capsule) 100 mg PO BID [facility] Last Admin: 04/18/23 09:16 Dose: 100 mg Duloxetine HCl (Duloxetine Hcl 60 Mg Capsule.Dr) 60 mg PO DAILY [facility] Last Admin: 04/18/23 09:14 Dose: 60 mg Fluticasone Propionate (Fluticasone Propionate Nasal 16 Gm [place]) 1 spray NOSTRIL-B DAILY [facility] Last Admin: 04/17/23 11:07 Dose: Not Given Fluticasone/Vilanterol (Fluticasone/Vilanterol 100/25 Blst.W.Dev) 1 puff INHALE RDAILY [facility] Last Admin: 04/17/23 10:48 Dose: 1 puff Folic Acid (Folic Acid 1 Mg Tablet) 1 mg PO DAILY [facility] Last Admin: 04/18/23 09:15 Dose: 1 mg Gabapentin (Gabapentin 400 Mg Capsule) 400 mg PO TID [facility] Last Admin: 04/18/23 09:15 Dose: 400 mg Guaifenesin (Guaifenesin [place] 600 Mg Tab.Er.12h) 600 mg PO BID PRN PRN Reason: Congestion Last Admin: 04/18/23 06:15 Dose: 600 mg Hydroxyzine HCl (Hydroxyzine Hcl 25 Mg Tablet) 25 mg PO Q6H PRN PRN Reason: Anxiety Last Admin: 04/17/23 19:13 Dose: 25 mg Lidocaine (Lidocaine 4 % Patch Adh..Patch) 2 patch TRANSDERMA DAILY [facility]; Protocol Last Admin: 04/17/23 19:16 Dose: 2 patch Loratadine (Loratadine 10 Mg Tablet) 10 mg PO DAILY [facility] Last Admin: 04/18/23 09:14 Dose: 10 mg Magnesium Hydroxide (Milk Of Magnesia 30 Ml Oral.Susp) 30 ml PO DAILY PRN PRN Reason: Constipation Montelukast Sodium (Montelukast Sodium 10 Mg Tablet) 10 mg PO BEDTIME [facility] Last Admin: 04/17/23 20:21 Dose: 10 mg Multi-Ingred Cream/Lotion/Oil/Oint (Mineral Oil/Petrolatum,White 106 Gm Tube) 1 appl TOPICAL BID [facility]; Protocol Last Admin: 04/17/23 20:27 Dose: 1 appl Multivitamins/Vitamin C (Multivitamin Tablet) 1 tab PO DAILY [facility] Last Admin: 04/18/23 09:17 Dose: 1 tab Nicotine (Nicotine 21 Mg Patch.Td24) 21 mg TRANSDERMA DAILY [facility] Last Admin: 04/18/23 09:17 Dose: 21 mg Nicotine Polacrilex (Nicotine Polacrilex 2 Mg Gum) 4 mg BUCCAL Q2H PRN PRN Reason: Nicotine Cravings Last Admin: 04/17/23 19:25 Dose: 4 mg Omeprazole (Omeprazole 20 Mg Capsule.Dr) 20 mg PO DAILY@0630 [facility] Last Admin: 04/18/23 06:11 Dose: 20 mg Perphenazine (Perphenazine 8 Mg Tablet) 8 mg PO TID [facility] Last Admin: 04/18/23 09:16 Dose: 8 mg Prazosin HCl (Prazosin Hcl 5 Mg Capsule) 5 mg PO BEDTIME [facility]; Protocol Last Admin: 04/17/23 20:21 Dose: 5 mg Quetiapine Fumarate (Quetiapine Fumarate 400 Mg Tablet) 400 mg PO BEDTIME [facility] Last Admin: 04/17/23 20:20 Dose: 400 mg Quetiapine Fumarate (Quetiapine Fumarate 100 Mg Tablet) 100 mg PO TID PRN PRN Reason: Anxiety Last Admin: 04/18/23 06:11 Dose: 100 mg Thiamine HCl (Thiamine Hcl 100 Mg Tablet) 100 mg PO DAILY [facility] Last Admin: 04/18/23 09:16 Dose: 100 mg Trazodone HCl (Trazodone Hcl 50 Mg Tablet) 50 mg PO BEDTIME MRX1 PRN PRN Reason: Insomnia Vitamin D (Cholecalciferol (Vitamin D3) 10 Mcg Tablet) 20 mcg PO DAILY [facility] Last Admin: 04/18/23 09:15 Dose: 20 mcg Allergies Allergies Allergy/AdvReac Type Severity Reaction Status Date / Time aspirin Allergy Unknown Unknown Verified 03/07/23 13:44 codeine Allergy Unknown Unknown Verified 03/07/23 13:44 haloperidol [From Haldol] Allergy Unknown Unknown Verified 03/07/23 13:44 NSAIDS (Non-Steroidal Allergy Unknown Unknown Verified 03/07/23 13:44 Anti-Inflamma risperidone [From Risperdal] Allergy Unknown Unknown Verified 03/07/23 13:44 tramadol Allergy Unknown Unknown Verified 03/07/23 13:44 trazodone Allergy Unknown Unknown Verified 03/07/23 13:44 prozac Allergy Unknown Unknown Uncoded 03/07/23 13:44 Assessment & Plan Assessment & Plan (1) PTSD (post-traumatic stress disorder): Status: Acute Code(s): F43.10 - Post-traumatic stress disorder, unspecified (2) Polysubstance use disorder: Status: Acute Code(s): F19.90 - Other psychoactive substance use, unspecified, uncomplicated Plan 04/12: restart home medications regimen. seems mostly challenged by housing and pain concerns; explore [facility] supports. 04/13: feeling slightly improved since restart of meds. continue current mgmt. investigate dispo options. pt is asking for DC to respite bed and referral to orthopod services. 04/14: more of her outpt meds restarted today and tomorrow. focus on dispo plan and meds regimen. planning to discharge as soon as monday to respite, should a bed be available. 04/15: DC norvasc and increase clonidine to 0.1 mg QID for anxiety. otherwise continue current mgmt. c/o anxiety, but mood appears improved and less irritable today. 04/16: low BP, DC propranolol to see if clonidine QID is sufficient to control BP. otherwise continue current mgmt. may DC as soon as tomorrow to respite. 04/17: BP has come up a tad today. add clonidine PRN to regimen per pt request. no respite beds today. pt reported that if she had had to discharge yesterday she would not have been safe, overheard on the phone to have said today that if she is discharged to her home she will kill herself. Patient educated on: diagnosis, medication risk/benefits and therapeutic strategies Informed Consent: understands Reason for continued inpatient stay Substantial Risk for: harm to self and med/psych decompensation Time Spent With Patient Time: Total time managing care of this patient today _30___ minutes.
[2023-04-18] MEDS: Fluticasone Propionate Nasal 16 GM SPRAY 1 SPRAY NOSTRIL-B (11:55)
[2023-04-18] MEDS: Fluticasone/Vilanterol 100/25 BLST.W.DEV 1 PUFF INHALE (11:55)
[2023-04-18] MEDS: hydrOXYzine HCL 25 MG TABLET PO (11:56)
[2023-04-18] MEDS: Lidocaine 4 % Patch ADH..PATCH 2 PATCH TRANSDERMA (13:39)
[2023-04-18 13:51] VITALS: BP 122/64; PULSE 97; RESP 18; O2SAT 97
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
[2023-04-18] MEDS: Nicotine Polacrilex 2 MG GUM 4 MG BUCCAL (14:57)
--- NOTE | 2023-04-18 15:25 | PC.NURSE ---
Pt ready and aware for discharge, reviewed medications and instructions.,Pt verbalized understanding. She will be going to respite care in [place].
== END 2023-04-18 15:15 | DRG 885 ==
PROVIDERS: Physician Assistant; Admitting Provider Psychiatry & Neurology Psychiatry; PCP Internal Medicine; Visit Provider Psychiatry & Neurology Psychiatry
DX: F25.9 Schizoaffective disorder, unspecified (principal); R45.851 Suicidal ideations; F43.10 Post-traumatic stress disorder, unspecified; F17.210 Nicotine dependence, cigarettes, uncomplicated; F19.10 Other psychoactive substance abuse, uncomplicated; F45.41 Pain disorder exclusively related to psychological factors; I10 Essential (primary) hypertension; J45.30 Mild persistent asthma, uncomplicated; Z91.51 Personal history of suicidal behavior; Z71.6 Tobacco abuse counseling; Z79.51 Long term (current) use of inhaled steroids; Z79.899 Other long term (current) drug therapy
CPT/HCPCS: 36415; 80048; 80053; 80061; 80076; 82306; 82607; 82746; 83036; 84439; 84443; 85025; 87389

== ENCOUNTER → 2023-04-12 11:14 | Outpatient (BNV) | payer OTHER, SELFPAY | PROVIDERS: Admitting Provider Psychiatry & Neurology Psychiatry; PCP Internal Medicine; Visit Provider Physician Assistant | DX: M79.7 Fibromyalgia (principal) | CPT/HCPCS: 99222; 99499 ==

== ENCOUNTER → 2023-04-12 11:14 | Outpatient (BNV) | payer OTHER, SELFPAY | PROVIDERS: Admitting Provider Psychiatry & Neurology Psychiatry; PCP Internal Medicine; Visit Provider Psychiatry & Neurology Psychiatry | DX: F43.11 Post-traumatic stress disorder, acute (principal); F19.90 Other psychoactive substance use, unspecified, uncomplicated | CPT/HCPCS: 90792; 99231; 99232; 99238 ==

== ENCOUNTER 2023-04-28 18:15 | Inpatient (IN) | payer OTHER, SELFPAY ==
--- NOTE | ~2023-04-28 | US_ITS ---
EXAMINATION: US ABDOMEN LIMITED CLINICAL INFORMATION: Right upper quadrant to further check bile duct for dilatation status post cholecystectomy. COMPARISON: CT abdomen and pelvis without contrast 05/01/2023. Ultrasound abdomen complete 03/24/2023. TECHNIQUE: Real-time imaging of the right upper quadrant abdominal viscera. FINDINGS: PANCREAS: Pancreatic tail is obscured by bowel gas. The visualized pancreas has normal homogeneous echotexture. No pancreatic ductal dilatation. LIVER: Mild hepatomegaly. Liver has normal contour and parenchymal echotexture. No focal lesion or intrahepatic ductal dilatation. GALLBLADDER: Surgically absent. COMMON BILE DUCT: Normal in caliber measuring 0.3 cm in diameter. RIGHT KIDNEY: Normal. No hydronephrosis. No renal calculi or focal parenchymal lesions. The kidney measures 10.3 cm in maximum dimension. FREE FLUID: None. US/US abdomen limited IMPRESSION: * The common duct is normal in size (0.3 cm diameter), status post cholecystectomy. * Mild hepatomegaly. Otherwise, liver is unremarkable. * No free fluid within the right upper quadrant.
--- NOTE | ~2023-04-28 | CT_ITS ---
EXAMINATION: CT ABDOMEN AND PELVIS WITHOUT CONTRAST CLINICAL INFORMATION: Left lower quadrant pain, rule out diverticulitis COMPARISON: 01/17/2017 TECHNIQUE: Multidetector volumetric imaging was performed from the superior aspect of the liver through the pubic symphysis. Sagittal and coronal reformatted images were obtained on the technologist's workstation. This CT examination was performed using dose optimization techniques as appropriate, variously including the following: *Automated exposure control *Adjustment of mA and/or kV according to patient size (this includes techniques or standardized protocols for targeted exams where dose is matched to indication/reason for exam; i.e. extremities or head) *Use of iterative reconstruction technique DLP: 1256 mGy-cm FINDINGS: LUNG BASES: Linear bibasilar atelectasis. LIVER, GALLBLADDER, AND BILIARY TREE: The liver is normal in size, shape, and attenuation. No focal hepatic lesion or biliary ductal dilatation is identified on this noncontrast exam. Patient is status post cholecystectomy. PANCREAS: Unremarkable. SPLEEN: Unremarkable. ADRENAL GLANDS: Unremarkable. KIDNEYS AND URETERS: No hydronephrosis or obstructing calculus bilaterally. BLADDER: Nearly empty and not well evaluated. GASTROINTESTINAL TRACT: No evidence of bowel obstruction or significant wall thickening. Moderate stool is present. No evidence of diverticulitis. The appendix is unremarkable. No free air is seen. There is trace pelvic free fluid. ABDOMINAL WALL: No significant hernia is appreciated. LYMPH NODES: Normal. VASCULAR: Trace atherosclerotic calcification. PELVIC VISCERA: Patient is status post hysterectomy. OSSEOUS STRUCTURES: There is facet arthropathy of the mid to lower lumbar spine. CT/CT abdomen pelvis wo IV con IMPRESSION: Trace nonspecific pelvic free fluid, which may be physiologic. No additional acute findings identified in the abdomen/pelvis.
--- NOTE | ~2023-04-28 | US_ITS ---
EXAMINATION: US PELVIS CLINICAL INFORMATION: Left-sided pain. History of ovarian cyst. COMPARISON: None available. TECHNIQUE: Ultrasound of the pelvis is performed using both transabdominal and transvaginal transducers along with Doppler. Transvaginal imaging is performed due to inadequate visualization transabdominally. FINDINGS: The uterus is not visualized. Both ovaries are not seen as well. There is no adnexal mass seen. There is minimal free fluid in the cul-de-sac. US/US pelvic and transvaginal IMPRESSION: Small amount of free fluid in cul-de-sac. Uterus and ovaries are not seen. Correlate with clinical exam if any surgery.
--- OUTSIDE RECORDS SUMMARY | 2023-04-28 18:17 | XMS_ITS | Continuity of Care Document ---
Author Name Unknown Organization [facility] Address [address] [place] [address]- Care Team Providers Care Art Psychotherapist Name Role Phone Yevgeniy ÁVLAREZ, Polly Kapoor Primary Care Physician [phone] Encounter [facility] Date(s): 03/24/23 - 04/23/23 [facility] [address] [place], [place] [address] Allergies, Adverse Reactions, Alerts Substance Reaction Severity Status codeine Active aspirin Active Haldol Active NSAIDs Active PROzac Active TraMADol Hydrochloride Activ e Immunizations Given and Recorded Vaccine Date Status Refusal Reason [id number] bivalent booster vax 06/21/22 Recorded tetanus/diphtheria/pertussis, acel(Tdap) 1 05/14/21 Given SARS-CoV-2 (COVID-19) Ad26 vaccine 2 02/15/21 Give n Influenza Virus Vaccine (oldterm) 06/11/20 Recorde d 1Result Comment: [facility] [id number] 2Result Comment: [facility] 41261-273-84 Medications amLODIPine 5 mg oral tablet 0 [...] 1 Refills, Maintenance, 11/08/22 11:26:00EDT, EC Capsule, [facility], Partial fill upon patient [...] capsule, 1 Refills, Maintenance, 02/27/23 15:17:00 [facility] if [...] Nurse Name: Polly Vuong MD, V Position: [facility] Physician - Primary Care Member Role: PCP Address: Address: [address] [place] [id number] Name: Sandi Hightower RN Position: S RN Member Role: Primary Care Nurse Name: Angelita Almeida RN Position: S RN Member Role: Primary Care Nurse Name: Marcelino Fermin RN Position: S RN Member Role: Primary Care Nurse Care Team Related Persons Name: KEY DEWEY Name: AIDA DEWEY Address: [place] [address] Name: CARLIN ORTEGA
--- OUTSIDE RECORDS SUMMARY | 2023-04-28 18:17 | XMS_ITS | Continuity of Care Document ---
Author Name Unknown Organization [facility] Address [address] [place] [address]- Care Team Providers Care Aluminum Pool Installer Name Role Phone Polly Vuong MD, V Primary Care Physician Encounter [facility] Date(s): 02/06/23 - 04/16/23 [facility] [address] [place], [place] [address] Attending Physician: Polly Vuong MD, V Allergies, Adverse Reactions, Alerts Substance Reaction Severity Status codeine Active aspirin Active Haldol Active NSAIDs Active PROzac Active TraMADol Hydrochloride Activ e Immunizations Given and Recorded Vaccine Date Status Refusal Reason [id number] bivalent booster vax 06/21/22 Recorded tetanus/diphtheria/pertussis, acel(Tdap) 1 05/14/21 Given SARS-CoV-2 (COVID-19) Ad26 vaccine 2 02/15/21 Give n Influenza Virus Vaccine (oldterm) 06/11/20 Recorde d 1Result Comment: [facility] [id number] 2Result Comment: [facility] [id number] Medications amLODIPine 5 mg oral tablet 0 [...] 1 Refills, Maintenance, 11/08/22 11:26:00EDT, EC Capsule, [facility], Partial fill upon patient request [...] capsule, 1 Refills, Maintenance, 02/27/23 15:17:00 [facility] if [...] Nurse Name: Polly Vuong MD, V Position: [facility] Physician - Primary Care Member Role: PCP Address: Address: [address] [place] [id number] Name: Sandi Hightower RN Position: S RN Member Role: Primary Care Nurse Name: Angelita Almeida RN Position: S RN Member Role: Primary Care Nurse Care Team Related Persons Name: KEY DEWEY Name: AIDA DEWEY Address: [place] [address] Name: CARLIN ORTEGA
--- OUTSIDE RECORDS SUMMARY | 2023-04-28 18:18 | XMS_ITS | Continuity of Care Document ---
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 Clerk [employer] Name Role Phone Yevgeniy ÁLVAREZ, Polly Kapoor Primary Care Physician Encounter [facility] Date(s): 03/27/23 - 04/26/23 [facility] [address] [place], [place] [address] Attending Physician: AdmKimberly garcia Admitting Physician: AdmKimberly garcia Referring Physician: AdmtrKimberly Allergies, Adverse Reactions, Alerts Substance Reaction Severity Status codeine Active aspirin Active TraMADol Hydrochloride Activ e Haldol Active NSAIDs Active PROzac Active Immunizations Given and Recorded Vaccine Date Status Refusal Reason [id number] bivalent booster vax 06/21/22 Recorded tetanus/diphtheria/pertussis, acel(Tdap) 1 05/14/21 Given SARS-CoV-2 (COVID-19) Ad26 vaccine 2 02/15/21 Give n Influenza Virus Vaccine (oldterm) 06/11/20 Recorde d 1Result Comment: [facility] [id number] 2Result Comment: [facility] [id number] Medications amLODIPine 5 mg oral tablet 0 [...] 1 Refills, Maintenance, 11/08/22 11:26:00EDT, EC Capsule, [facility], Partial fill upon patient request if [...] capsule, 1 Refills, Maintenance, 02/27/23 15:17:00 [facility] if [...] 1/2 pack daily; entered on: 01/13/22 [facility] Consult note * Event Display: Inpatient Consult Note, Non- Authored Date: Patient Care team information Care Team Personnel Name: Mahendra Maria Position: S RN Member Role: Primary Care Nurse Name: Jeni Solorio RN Position: S RN Member Role: Primary Care Nurse Name: Rebekah Delatorre RN Position: S RN Member Role: Primary Care Nurse Name: Polly Vuong MD, V Position: [facility] Physician - Primary Care Member Role: PCP Address: Address: [address] [place] [id number] Name: Sandi Hightower RN Position: S RN Member Role: Primary Care Nurse Name: Angelita Almeida RN Position: S RN Member Role: Primary Care Nurse Name: Marcelino Fermin RN Position: S RN Member Role: Primary Care Nurse Care Team Related Persons Name: KEY DEWEY Name: AIDA DEWEY Address: [place] [address] Name: NO, CARLIN
[2023-04-28 18:34] VITALS: BP 130/68; PULSE 76; RESP 16; TEMP 36.4; O2SAT 97; BMI 41.3
[2023-04-28] MEDS: clonazePAM 1 MG TABLET 2 MG PO (21:06)
[2023-04-28] MEDS: Benztropine Mesylate 0.5 MG TABLET PO (21:06)
[2023-04-28] MEDS: cloNIDine HCL 0.1 MG TABLET PO (21:06)
[2023-04-28] MEDS: Docusate Sodium 100 MG CAPSULE PO (21:06)
[2023-04-28] MEDS: Gabapentin 400 MG CAPSULE PO (21:12)
[2023-04-28] MEDS: Mirtazapine 30 MG TABLET PO (21:12)
[2023-04-28] MEDS: Perphenazine 8 MG TABLET PO (21:25)
[2023-04-28] MEDS: Propranolol HCL 10 MG TABLET PO (21:25)
[2023-04-28] MEDS: QUEtiapine Fumarate 400 MG TABLET PO (21:25)
[2023-04-28] MEDS: Prazosin HCL 5 MG CAPSULE PO (21:25)
[2023-04-28] MEDS: Ondansetron ODT 4 MG TAB.RAPDIS TRANSLINGU (21:35)
--- NOTE | 2023-04-28 22:01 | PC.ADMIT ---
Pt is a 47y/o -[place], female admitted on CV for SI with a plan to jump off a bridge/walk into traffic. Pt is alert and oriented x3, superficially pleasant, calom and cooperative, VSS, Covid negative, Tox screen positive for cocaine. Pt's medical hx includes Fibromyalgia and HTN. Pt reports that she had been sober for sometime but relapsed on cocaine after her brother two weeks ago. Speech is normal with clear rhythm and tone. Pt states that she doesn't feel safe in her apartment and needs help finding a new apartment. Pt reports yeast infection. She appears paranoid, anxious but pleasant. flu shot given per pt's request, zofran given for nausea. Tx plan and safety tool completed. Promote safety and begin treatment plan. Pt is currently resting in bed, respirations even and unlabored and in no apparent distress. Admission orders obtained.
[2023-04-29] MEDS: Omeprazole 20 MG CAPSULE.DR PO (06:22)
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
[2023-04-29 09:28] VITALS: BP 119/80; PULSE 101; RESP 18; TEMP 36.7; O2SAT 95
[2023-04-29] MEDS: Montelukast Sodium 10 MG TABLET PO (09:29)
[2023-04-29] MEDS: Gabapentin 400 MG CAPSULE PO ×3 (09:29→20:39)
[2023-04-29] MEDS: amLODIPine Besylate 5 MG TABLET PO (09:30)
[2023-04-29] MEDS: Propranolol HCL 10 MG TABLET PO ×2 (09:30→20:40)
[2023-04-29] MEDS: Docusate Sodium 100 MG CAPSULE PO ×2 (09:30→20:39)
[2023-04-29] MEDS: Perphenazine 8 MG TABLET PO ×3 (09:30→20:37)
[2023-04-29] MEDS: Benztropine Mesylate 0.5 MG TABLET PO ×2 (09:30→20:39)
[2023-04-29] MEDS: QUEtiapine Fumarate 50 MG TABLET PO (09:30)
[2023-04-29] MEDS: cloNIDine HCL 0.1 MG TABLET PO ×4 (09:30→20:38)
[2023-04-29] MEDS: Loratadine 10 MG TABLET PO (09:30)
[2023-04-29] MEDS: DULoxetine HCl 60 MG CAPSULE.DR PO (09:30)
[2023-04-29] MEDS: Acetaminophen 325 MG TABLET 650 MG PO ×3 (10:11→20:36)
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
[2023-04-29] MEDS: Fluticasone/Vilanterol 100/25 BLST.W.DEV 1 PUFF INHALE (13:06)
[2023-04-29 16:40] VITALS: BP 102/54; PULSE 93; TEMP 36.2
[2023-04-29] MEDS: Nicotine Polacrilex 2 MG GUM 4 MG BUCCAL (16:53)
[2023-04-29] MEDS: Nicotine 21 MG PATCH.TD24 TRANSDERMA (16:53)
[2023-04-29 20:35] VITALS: BP 119/71; PULSE 106
[2023-04-29] MEDS: Prazosin HCL 5 MG CAPSULE PO (20:37)
[2023-04-29] MEDS: QUEtiapine Fumarate 400 MG TABLET PO (20:37)
[2023-04-29] MEDS: Mirtazapine 30 MG TABLET PO (20:37)
[2023-04-29] MEDS: clonazePAM 1 MG TABLET 2 MG PO (20:39)
[2023-04-30 01:27] LABS: CT PCR NOT DETECTED (Not Detect.); NG PCR NOT DETECTED (Not Detect.)
[2023-04-30 06:00] VITALS: BP 106/60; PULSE 70; RESP 14; TEMP 36.2; O2SAT 96
[2023-04-30] MEDS: Omeprazole 20 MG CAPSULE.DR PO (06:31)
[2023-04-30] MEDS: Acetaminophen 325 MG TABLET 650 MG PO ×2 (09:16→18:43)
[2023-04-30] MEDS: cloNIDine HCL 0.1 MG TABLET PO ×4 (09:16→21:12)
[2023-04-30] MEDS: Gabapentin 400 MG CAPSULE PO ×3 (09:17→21:10)
[2023-04-30] MEDS: QUEtiapine Fumarate 50 MG TABLET PO (09:17)
[2023-04-30] MEDS: DULoxetine HCl 60 MG CAPSULE.DR PO (09:17)
[2023-04-30] MEDS: Propranolol HCL 10 MG TABLET PO ×2 (09:17→21:13)
[2023-04-30] MEDS: amLODIPine Besylate 5 MG TABLET PO (09:17)
[2023-04-30] MEDS: Benztropine Mesylate 0.5 MG TABLET PO ×2 (09:17→21:13)
[2023-04-30] MEDS: Docusate Sodium 100 MG CAPSULE PO ×2 (09:17→21:11)
[2023-04-30] MEDS: Loratadine 10 MG TABLET PO (09:17)
[2023-04-30] MEDS: Montelukast Sodium 10 MG TABLET PO (09:17)
[2023-04-30] MEDS: Perphenazine 8 MG TABLET PO ×3 (09:17→21:11)
[2023-04-30] MEDS: Fluticasone/Vilanterol 100/25 BLST.W.DEV 1 PUFF INHALE (09:18)
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
[2023-04-30] MEDS: Nicotine Polacrilex 2 MG GUM 4 MG BUCCAL ×3 (13:20→18:44)
[2023-04-30 13:58] LABS: BV Int Neg Control Negative (Negative); BV Int Pos Control Positive (Positive)
[2023-04-30 15:49] LABS: Appearance Urine Clear; Color Urine Yellow; Glucose Urine UA Negative (Negative); Leukocyte Esterase Urine Trace (Negative); Nitrite Urine Negative (Negative); PH 5.5 (5.0-9.0); UMIC TRIGGER UACC YES; Urine Blood Negative (Negative); Urine Ketones Negative (Negative); Urine Protein Negative (Neg-Trace)
[2023-04-30 15:50] LABS: UPreg QC Valid YES; Urine Pregnancy NEGATIVE (NEGATIVE)
[2023-04-30 15:54] LABS: Bacteria Urine Trace (None Seen); Hyaline Casts Urine 0-2 /LPF (0-2); RBC Urine 0-2 /HPF (0-2); WBC Urine 0-5 /HPF (0-5)
[2023-04-30 18:19] VITALS: BP 102/60; PULSE 100; TEMP 36.9
[2023-04-30] MEDS: QUEtiapine Fumarate 100 MG TABLET PO (18:43)
[2023-04-30 21:05] VITALS: BP 130/71; PULSE 86; TEMP 36.3
[2023-04-30] MEDS: Mirtazapine 30 MG TABLET PO (21:10)
[2023-04-30] MEDS: Prazosin HCL 5 MG CAPSULE PO (21:11)
[2023-04-30] MEDS: clonazePAM 1 MG TABLET 2 MG PO (21:12)
[2023-04-30] MEDS: QUEtiapine Fumarate 400 MG TABLET PO (21:12)
[2023-04-30] MEDS: oxyCODONE HCl Immed Release 5 MG TABLET PO (21:51)
--- NOTE | 2023-04-30 22:03 | PC.NURSE ---
Hospitalist precision crop manager notified of consult via [facility] at 1700
[2023-05-01] MEDS: Omeprazole 20 MG CAPSULE.DR PO (06:00)
[2023-05-01 08:25] VITALS: BP 134/59; PULSE 95; RESP 18; TEMP 36.6; O2SAT 97
[2023-05-01] MEDS: Gabapentin 400 MG CAPSULE PO ×3 (08:28→21:34)
[2023-05-01] MEDS: Loratadine 10 MG TABLET PO (08:28)
[2023-05-01] MEDS: Propranolol HCL 10 MG TABLET PO ×2 (08:28→21:34)
[2023-05-01] MEDS: Benztropine Mesylate 0.5 MG TABLET PO ×2 (08:28→21:34)
[2023-05-01] MEDS: cloNIDine HCL 0.1 MG TABLET PO ×4 (08:28→21:34)
[2023-05-01] MEDS: Docusate Sodium 100 MG CAPSULE PO ×2 (08:29→21:34)
[2023-05-01] MEDS: QUEtiapine Fumarate 50 MG TABLET PO (08:29)
[2023-05-01] MEDS: amLODIPine Besylate 5 MG TABLET PO (08:29)
[2023-05-01] MEDS: Fluticasone/Vilanterol 100/25 BLST.W.DEV 1 PUFF INHALE (08:29)
[2023-05-01] MEDS: Montelukast Sodium 10 MG TABLET PO (08:29)
[2023-05-01] MEDS: Perphenazine 8 MG TABLET PO ×3 (08:29→21:34)
[2023-05-01] MEDS: DULoxetine HCl 60 MG CAPSULE.DR PO (08:29)
[2023-05-01] MEDS: Albuterol Sulfate 90 MCG 8 GM INHALER 2 PUFF INHALE (08:30)
[2023-05-01] MEDS: Acetaminophen 325 MG TABLET 650 MG PO ×2 (08:40→16:49)
[2023-05-01] MEDS: Nicotine Polacrilex 2 MG GUM 4 MG BUCCAL (08:41)
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
--- NOTE | 2023-05-01 11:22 | PC.NURSE ---
Hospitalist Ruel presley texted and responded at 1121 on 05/01/23. Pt will be seen by [facility]
--- NOTE | 2023-05-01 11:45 | PM.EVENT ---
Event Note Date of Service: 05/01/23 Event Note: Pt seen in follow up for LLQ pain. Pt reported mild pain with benign abd exam on admission. Reports worsening of left lower quadrant pain with radiation to the left flank. Reports symptoms are constant. She has been reporting about 1 episode diarrhea daily but denies any melena or hematochezia. No constipation. She is afebrile. On exam, there is moderate tenderness to palpation left lower quadrant and in the suprapubic area without guarding or rebound. She does report a history of diverticulitis. She is also reporting pain over the hysterectomy scar. No palpable masses or bulging with Valsalva maneuver. There is no overlying erythema or warmth. Given worsening symptoms, will check CT abdomen/pelvis to rule out diverticulitis are other intra-abdominal pathology. Will also check CBC, BMP. Plan to be adjusted as appropriate pending results. Will continue following Time Spent With Patient Time: Total time managing care of this patient today ____ minutes.
[2023-05-01 12:01] LABS: Basophils Percent Auto 0.2 % (0-2); Eosinophils Absolute Auto 0.1 X10*3/uL (0.0-0.4); Eosinophils Percent Auto 1.3 % (0-4); Hematocrit 31.9 % (37.0-47.0); Hemoglobin 10.1 g/dl (12.0-16.0); Imm Gran Abs Auto 0.04 X10*3/uL (0.00-0.03); Imm Gran Pct Auto 0.9 % (0.0-0.4); Lymphocytes Absolute Auto 1.6 X10*3/uL (1.2-4.9); Lymphocytes Percent Auto 34.7 % (20-40); MANUAL DIFF FLAG NO; Mean Corpuscular HGB Conc 31.7 g/dl (31.0-35.0); Mean Corpuscular Hemoglobin 28.2 pg (27.0-33.0); Mean Corpuscular Volume 89.1 fL (80.0-98.0); Mean Platelet Volume 8.4 fL (9.4-12.3); Monocytes Absolute Auto 0.4 X10*3/uL (0.1-1.2); Monocytes Percent Auto 8.2 % (2-11); Neutrophils Absolute Auto 2.5 x10*3/uL (2.0-8.3); Neutrophils Percent Auto 54.7 % (45-73); Platelet Count 193 X10*3/uL (160-400); Red Blood Count 3.58 X10*6/uL (4.20-5.50); Red Cell Distribution Width 14.1 % (11.0-16.0); White Blood Count 4.6 X10*3/uL (4.8-10.8)
[2023-05-01 12:20] LABS: Anion Gap 11 (12-20); Blood Urea Nitrogen 20 mg/dL (9-16); Calcium 9.2 mg/dL (8.4-10.2); Carbon Dioxide 25 mmol/L (22-29); Chloride 109 mmol/L (96-108); Creatinine Clr Calc Pharmacy 122.1; Estimated Glomerular Filt Rate > 60; Glucose Random 106 mg/dL (60-115); Potassium 4.9 mmol/L (3.3-5.1); Sodium 140 mmol/L (135-145)
[2023-05-01] MEDS: oxyCODONE HCl Immed Release 5 MG TABLET PO (12:55)
[2023-05-01 16:40] VITALS: BP 126/70; PULSE 90; RESP 18; TEMP 36.6
[2023-05-01] MEDS: clonazePAM 0.5 MG TABLET PO (16:48)
[2023-05-01] MEDS: Mirtazapine 30 MG TABLET PO (21:34)
[2023-05-01] MEDS: Prazosin HCL 5 MG CAPSULE PO (21:34)
[2023-05-01] MEDS: QUEtiapine Fumarate 400 MG TABLET PO (21:34)
[2023-05-01] MEDS: clonazePAM 1 MG TABLET 2 MG PO (21:34)
[2023-05-02] MEDS: Acetaminophen 325 MG TABLET 650 MG PO ×2 (06:35→13:09)
[2023-05-02] MEDS: Omeprazole 20 MG CAPSULE.DR PO (06:35)
[2023-05-02] MEDS: oxyCODONE HCl Immed Release 5 MG TABLET PO ×3 (06:36→20:22)
[2023-05-02 08:40] VITALS: BP 112/55; PULSE 86; RESP 16; TEMP 36.1; O2SAT 96
[2023-05-02] MEDS: Fluticasone/Vilanterol 100/25 BLST.W.DEV 1 PUFF INHALE (08:47)
[2023-05-02] MEDS: Propranolol HCL 10 MG TABLET PO ×2 (08:48→20:08)
[2023-05-02] MEDS: Gabapentin 400 MG CAPSULE PO ×3 (08:49→20:07)
[2023-05-02] MEDS: Montelukast Sodium 10 MG TABLET PO (08:49)
[2023-05-02] MEDS: DULoxetine HCl 60 MG CAPSULE.DR PO (08:49)
[2023-05-02] MEDS: cloNIDine HCL 0.1 MG TABLET PO ×3 (08:49→20:08)
[2023-05-02] MEDS: Docusate Sodium 100 MG CAPSULE PO ×2 (08:49→20:08)
[2023-05-02] MEDS: Benztropine Mesylate 0.5 MG TABLET PO ×2 (08:49→20:09)
[2023-05-02] MEDS: amLODIPine Besylate 5 MG TABLET PO (08:49)
[2023-05-02] MEDS: Perphenazine 8 MG TABLET PO ×3 (08:49→20:06)
[2023-05-02] MEDS: Loratadine 10 MG TABLET PO (08:49)
[2023-05-02] MEDS: QUEtiapine Fumarate 50 MG TABLET PO (08:49)
[2023-05-02] MEDS: Nicotine Polacrilex 2 MG GUM 4 MG BUCCAL ×2 (09:07→13:10)
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
[2023-05-02 17:30] VITALS: BP 122/73; PULSE 90; TEMP 36.5; O2SAT 97
[2023-05-02] MEDS: Prazosin HCL 5 MG CAPSULE PO (20:04)
[2023-05-02] MEDS: QUEtiapine Fumarate 400 MG TABLET PO (20:05)
[2023-05-02] MEDS: Mirtazapine 30 MG TABLET PO (20:06)
[2023-05-02] MEDS: clonazePAM 1 MG TABLET 2 MG PO (20:07)
[2023-05-03] MEDS: Albuterol Sulfate 90 MCG 8 GM INHALER 2 PUFF INHALE (01:18)
[2023-05-03] MEDS: Omeprazole 20 MG CAPSULE.DR PO (06:22)
[2023-05-03 08:13] VITALS: BP 113/59; PULSE 87; RESP 16; TEMP 36.7; O2SAT 98
[2023-05-03] MEDS: cloNIDine HCL 0.1 MG TABLET PO ×4 (08:55→20:25)
[2023-05-03] MEDS: Montelukast Sodium 10 MG TABLET PO (08:55)
[2023-05-03] MEDS: Gabapentin 400 MG CAPSULE PO ×3 (08:55→20:25)
[2023-05-03] MEDS: Loratadine 10 MG TABLET PO (08:55)
[2023-05-03] MEDS: amLODIPine Besylate 5 MG TABLET PO (08:55)
[2023-05-03] MEDS: Docusate Sodium 100 MG CAPSULE PO ×2 (08:55→20:25)
[2023-05-03] MEDS: DULoxetine HCl 60 MG CAPSULE.DR PO (08:55)
[2023-05-03] MEDS: Propranolol HCL 10 MG TABLET PO ×2 (08:55→20:25)
[2023-05-03] MEDS: Benztropine Mesylate 0.5 MG TABLET PO ×2 (08:55→20:25)
[2023-05-03] MEDS: QUEtiapine Fumarate 50 MG TABLET PO (08:55)
[2023-05-03] MEDS: Perphenazine 8 MG TABLET PO ×3 (08:55→20:26)
[2023-05-03] MEDS: Fluticasone/Vilanterol 100/25 BLST.W.DEV 1 PUFF INHALE (08:59)
[2023-05-03] MEDS: Acetaminophen 325 MG TABLET 650 MG PO ×2 (09:45→20:41)
[2023-05-03] MEDS: oxyCODONE HCl Immed Release 5 MG TABLET PO ×3 (09:46→22:13)
[2023-05-03] MEDS: Nicotine Polacrilex 2 MG GUM 4 MG BUCCAL (12:39)
[2023-05-03] MEDS: Lidocaine 4 % Patch ADH..PATCH 2 PATCH TRANSDERMA (12:41)
[2023-05-03 12:48] VITALS: BP 109/53; PULSE 87
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
[2023-05-03 16:49] VITALS: BP 126/68; PULSE 86; TEMP 36.4; O2SAT 95
[2023-05-03 20:22] VITALS: BP 128/73; PULSE 89
[2023-05-03] MEDS: Mirtazapine 30 MG TABLET PO (20:25)
[2023-05-03] MEDS: Prazosin HCL 5 MG CAPSULE PO (20:25)
[2023-05-03] MEDS: clonazePAM 1 MG TABLET 2 MG PO (20:25)
[2023-05-03] MEDS: QUEtiapine Fumarate 400 MG TABLET PO (20:26)
[2023-05-03] MEDS: Simethicone 80 MG TAB.CHEW PO (22:41)
--- NOTE | 2023-05-03 22:47 | PC.NURSE ---
Patient continues to c/o abdominal pain, but this writer technical publications noted patient did have prn for flatus.
[2023-05-04] MEDS: Omeprazole 20 MG CAPSULE.DR PO (06:48)
[2023-05-04 07:00] VITALS: BMI 44.5
[2023-05-04 08:45] VITALS: BP 133/75; PULSE 104; RESP 18; TEMP 36.1; O2SAT 99
[2023-05-04] MEDS: Loratadine 10 MG TABLET PO (09:17)
[2023-05-04] MEDS: Benztropine Mesylate 0.5 MG TABLET PO ×2 (09:17→22:05)
[2023-05-04] MEDS: Gabapentin 400 MG CAPSULE PO ×3 (09:17→22:02)
[2023-05-04] MEDS: cloNIDine HCL 0.1 MG TABLET PO ×4 (09:17→22:03)
[2023-05-04] MEDS: Docusate Sodium 100 MG CAPSULE PO ×2 (09:18→22:05)
[2023-05-04] MEDS: DULoxetine HCl 60 MG CAPSULE.DR PO (09:18)
[2023-05-04] MEDS: Perphenazine 8 MG TABLET PO ×3 (09:18→22:03)
[2023-05-04] MEDS: Propranolol HCL 10 MG TABLET PO ×2 (09:18→22:02)
[2023-05-04] MEDS: QUEtiapine Fumarate 50 MG TABLET PO (09:18)
[2023-05-04] MEDS: amLODIPine Besylate 5 MG TABLET PO (09:18)
[2023-05-04] MEDS: Montelukast Sodium 10 MG TABLET PO (09:18)
[2023-05-04] MEDS: Acetaminophen 325 MG TABLET 650 MG PO ×2 (09:19→16:59)
[2023-05-04] MEDS: Nicotine Polacrilex 2 MG GUM 4 MG BUCCAL (09:19)
[2023-05-04] MEDS: Albuterol Sulfate 90 MCG 8 GM INHALER 2 PUFF INHALE (09:20)
[2023-05-04] MEDS: Fluticasone/Vilanterol 100/25 BLST.W.DEV 1 PUFF INHALE (09:20)
[2023-05-04] MEDS: oxyCODONE HCl Immed Release 5 MG TABLET PO ×2 (09:22→22:04)
[2023-05-04 12:50] VITALS: BP 133/60
[2023-05-04] MEDS: hydrOXYzine HCL 25 MG TABLET PO (12:55)
--- NOTE | 2023-05-04 13:16 | PC.NURSE ---
Hospitalist Janis contacted at [phone] regarding consult.
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
[2023-05-04 18:00] VITALS: BP 122/66; PULSE 83; TEMP 35.9
[2023-05-04] MEDS: QUEtiapine Fumarate 400 MG TABLET PO (22:04)
[2023-05-04] MEDS: Mirtazapine 30 MG TABLET PO (22:04)
[2023-05-04] MEDS: Prazosin HCL 5 MG CAPSULE PO (22:05)
[2023-05-05] MEDS: Omeprazole 20 MG CAPSULE.DR PO (04:51)
[2023-05-05] MEDS: Acetaminophen 325 MG TABLET 650 MG PO ×3 (04:51→19:23)
[2023-05-05 08:20] VITALS: BP 102/61; PULSE 84; RESP 18; TEMP 35.8; O2SAT 99
[2023-05-05] MEDS: QUEtiapine Fumarate 50 MG TABLET PO (08:31)
[2023-05-05] MEDS: Perphenazine 8 MG TABLET PO ×3 (08:32→19:26)
[2023-05-05] MEDS: Docusate Sodium 100 MG CAPSULE PO ×2 (08:32→19:25)
[2023-05-05] MEDS: Benztropine Mesylate 0.5 MG TABLET PO ×2 (08:32→19:27)
[2023-05-05] MEDS: Gabapentin 400 MG CAPSULE PO ×3 (08:32→19:23)
[2023-05-05] MEDS: amLODIPine Besylate 5 MG TABLET PO (08:33)
[2023-05-05] MEDS: DULoxetine HCl 60 MG CAPSULE.DR PO (08:33)
[2023-05-05] MEDS: Propranolol HCL 10 MG TABLET PO ×2 (08:33→19:27)
[2023-05-05] MEDS: cloNIDine HCL 0.1 MG TABLET PO ×4 (08:33→19:26)
[2023-05-05] MEDS: Montelukast Sodium 10 MG TABLET PO (08:33)
[2023-05-05] MEDS: Loratadine 10 MG TABLET PO (08:33)
[2023-05-05] MEDS: Albuterol Sulfate 90 MCG 8 GM INHALER 2 PUFF INHALE (08:36)
[2023-05-05] MEDS: Fluticasone/Vilanterol 100/25 BLST.W.DEV 1 PUFF INHALE (08:36)
[2023-05-05] MEDS: oxyCODONE HCl Immed Release 5 MG TABLET PO ×2 (10:54→19:25)
[2023-05-05 13:19] VITALS: BP 121/59; PULSE 87
[2023-05-05] MEDS: Nicotine Polacrilex 2 MG GUM 4 MG BUCCAL (16:38)
[2023-05-05 18:00] VITALS: BP 124/67; PULSE 85; RESP 18; TEMP 36.4; O2SAT 97
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
[2023-05-05] MEDS: Mirtazapine 30 MG TABLET PO (19:24)
[2023-05-05] MEDS: Prazosin HCL 5 MG CAPSULE PO (19:26)
[2023-05-05] MEDS: QUEtiapine Fumarate 400 MG TABLET PO (19:26)
--- NOTE | 2023-05-06 | ECG_ITS ---
Test Reason : hyperkalemia Blood Pressure : / mmHG Vent. Rate : 088 BPM Atrial Rate : 088 BPM P-R Int : 166 ms QRS Dur : 082 ms QT Int : 356 ms P-R-T Axes : 058 056 030 degrees QTc Int : 430 ms Normal sinus rhythm Normal ECG When compared with ECG of 20-MAR-2023 11:03, Nonspecific T wave abnormality is no longer Present Referred By: Kiersten Kramer Electronically Signed By:SILKE SANTORO
[2023-05-06] MEDS: Omeprazole 20 MG CAPSULE.DR PO (05:21)
[2023-05-06] MEDS: Acetaminophen 325 MG TABLET 650 MG PO ×3 (05:22→19:54)
[2023-05-06 08:20] VITALS: BP 132/78; PULSE 85; RESP 18; TEMP 35.9; O2SAT 98
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
[2023-05-06] MEDS: Propranolol HCL 10 MG TABLET PO ×2 (08:51→19:52)
[2023-05-06] MEDS: Gabapentin 400 MG CAPSULE PO ×3 (08:51→19:54)
[2023-05-06] MEDS: QUEtiapine Fumarate 50 MG TABLET PO (08:51)
[2023-05-06] MEDS: cloNIDine HCL 0.1 MG TABLET PO ×4 (08:51→19:55)
[2023-05-06] MEDS: Loratadine 10 MG TABLET PO (08:52)
[2023-05-06] MEDS: Benztropine Mesylate 0.5 MG TABLET PO ×2 (08:52→19:52)
[2023-05-06] MEDS: amLODIPine Besylate 5 MG TABLET PO (08:52)
[2023-05-06] MEDS: Cholecalciferol (Vitamin D3) 10 MCG TABLET PO (08:52)
[2023-05-06] MEDS: Perphenazine 8 MG TABLET PO ×3 (08:52→19:53)
[2023-05-06] MEDS: DULoxetine HCl 60 MG CAPSULE.DR PO (08:52)
[2023-05-06] MEDS: Docusate Sodium 100 MG CAPSULE PO ×2 (08:52→19:53)
[2023-05-06] MEDS: Albuterol Sulfate 90 MCG 8 GM INHALER 2 PUFF INHALE (08:53)
[2023-05-06] MEDS: Montelukast Sodium 10 MG TABLET PO (08:53)
[2023-05-06] MEDS: Nicotine Polacrilex 2 MG GUM 4 MG BUCCAL ×2 (08:53→17:17)
[2023-05-06] MEDS: Fluticasone/Vilanterol 100/25 BLST.W.DEV 1 PUFF INHALE (08:53)
[2023-05-06] MEDS: oxyCODONE HCl Immed Release 5 MG TABLET PO ×3 (10:40→19:53)
[2023-05-06 13:10] LABS: MANUAL DIFF FLAG NO
[2023-05-06 13:15] LABS: Basophils Percent Auto 0.5 % (0-2); Eosinophils Absolute Auto 0.1 X10*3/uL (0.0-0.4); Eosinophils Percent Auto 1.9 % (0-4); Hematocrit 33.6 % (37.0-47.0); Hemoglobin 10.5 g/dl (12.0-16.0); Imm Gran Abs Auto 0.08 X10*3/uL (0.00-0.03); Imm Gran Pct Auto 1.9 % (0.0-0.4); Lymphocytes Absolute Auto 1.5 X10*3/uL (1.2-4.9); Lymphocytes Percent Auto 34.9 % (20-40); Mean Corpuscular HGB Conc 31.3 g/dl (31.0-35.0); Mean Corpuscular Hemoglobin 27.7 pg (27.0-33.0); Mean Corpuscular Volume 88.7 fL (80.0-98.0); Mean Platelet Volume 8.8 fL (9.4-12.3); Monocytes Absolute Auto 0.4 X10*3/uL (0.1-1.2); Monocytes Percent Auto 10.5 % (2-11); Neutrophils Absolute Auto 2.1 x10*3/uL (2.0-8.3); Neutrophils Percent Auto 50.3 % (45-73); Platelet Count 240 X10*3/uL (160-400); Red Blood Count 3.79 X10*6/uL (4.20-5.50); Red Cell Distribution Width 14.5 % (11.0-16.0); White Blood Count 4.2 X10*3/uL (4.8-10.8)
[2023-05-06 13:28] LABS: Alanine Aminotransferase 11 U/L (0-31); Albumin Level 3.5 g/dL (3.5-5.0); Alkaline Phosphatase 102 U/L (39-117); Anion Gap 11 (12-20); Aspartate Amino Transferase 11 U/L (5-31); Bilirubin Total 0.1 mg/dL (0.0-1.0); Blood Urea Nitrogen 27 mg/dL (9-16); Calcium 9.9 mg/dL (8.4-10.2); Carbon Dioxide 24 mmol/L (22-29); Chloride 107 mmol/L (96-108); Creatinine Clr Calc Pharmacy 116.5; Estimated Glomerular Filt Rate > 60; Glucose Random 111 mg/dL (60-115); Lipase 15 U/L (8-78); Potassium 5.3 mmol/L (3.3-5.1); Sodium 137 mmol/L (135-145); Total Protein 6.7 g/dL (6.5-8.0)
[2023-05-06] MEDS: Ondansetron ODT 4 MG TAB.RAPDIS TRANSLINGU (17:17)
[2023-05-06 18:00] VITALS: BP 120/71; PULSE 90; TEMP 37; O2SAT 96
--- NOTE | 2023-05-06 19:50 | P.EN_ITS ---
Event Note Date of Service: 05/06/23 Event Note: Medical consult for patient with multiple, diffuse complaints: Painful lump under right breast and nausea on 05/04, RUQ abdominal pain on 05/05, and LLQ pain that apparently felt like an ovarian cyst burst on 05/06. This is in addition to consult on 04/29 and 05/01 for worsening left lower quadrant pain with radiation to the left flank with episodes of diarrhea and also pain over her hysterectomy scar. Today patient seen and evaluated at bedside. Patient continues to complain of constant, sharp, diffuse abdominal and pelvic pain, worse in LUQ, LLQ, and RUQ. Patient also complains of continued pleuritic chest pain, and reports an episode of vomiting 15-20 minutes earlier. Physical exam reveals diffuse abdominal tenderness with guarding and reported rebound tenderness in RLQ. Patient states she is in so much pain she can barely move or get out of bed. Patient received a CT of abdomen and pelvis on 05/01/2023 which found trace nonspecific pelvic free fluid which may be physiologic, but no additional acute findings to explain patient's symptoms. There is no evidence of bowel obstruction or wall thickening. No evidence of diverticulitis or appendicitis. Liver was normal in size shape and attenuation without focal hepatic lesions or biliary ductal dilation. Patient is s/p cholecystectomy, hysterectomy, and oophorectomy. Pelvic/transvaginal ultrasound was ordered on 05/02/2023, however has still not been officially read. Psychiatry consulted with radiology who offered a quick reading that showed only a small amount of free fluid in the cul-de-sac, but no adrenal or pelvic mass. Uterus and ovaries not visualized secondary to hysterectomy and oophorectomy. Ultrasound negative for any acute pathology to explain patient's symptoms. Labs were ordered and CBC unchanged from previous. BMP showed mild hyperkalemia of 5.3. Renal function baseline. Hepatic function WNL. Lipase WNL. Will give pt one dose of Lokelma for mild hyperkalemia and place on a low- potassium diet. Will repeat labs tomorrow and give additional dose of Lokelma if warranted. Given patient's diffuse abdominal complaints and extensive negative workup so far, patient's symptoms likely psychosomatic. However, GI should be consulted for suggestions for further workup. Time Spent With Patient Time: Total time managing care of this patient today ____ minutes.
[2023-05-06] MEDS: Mirtazapine 30 MG TABLET PO (19:52)
[2023-05-06] MEDS: Prazosin HCL 5 MG CAPSULE PO (19:54)
[2023-05-06] MEDS: QUEtiapine Fumarate 400 MG TABLET PO (19:54)
[2023-05-06 20:20] VITALS: BP 114/75
[2023-05-06] MEDS: Sodium Zirconium Cyclosilicate 5 GM POWD.PACK PO (22:10)
[2023-05-07] MEDS: Acetaminophen 325 MG TABLET 650 MG PO ×3 (03:49→18:50)
[2023-05-07] MEDS: QUEtiapine Fumarate 100 MG TABLET PO (03:49)
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
[2023-05-07] MEDS: Omeprazole 20 MG CAPSULE.DR PO (06:23)
[2023-05-07 09:12] VITALS: BP 130/68; PULSE 88; RESP 16; TEMP 36.6; O2SAT 96
[2023-05-07] MEDS: Gabapentin 400 MG CAPSULE PO ×3 (09:15→20:07)
[2023-05-07] MEDS: DULoxetine HCl 60 MG CAPSULE.DR PO (09:15)
[2023-05-07] MEDS: cloNIDine HCL 0.1 MG TABLET PO ×4 (09:15→20:07)
[2023-05-07] MEDS: Benztropine Mesylate 0.5 MG TABLET PO ×2 (09:15→20:07)
[2023-05-07] MEDS: Loratadine 10 MG TABLET PO (09:15)
[2023-05-07] MEDS: amLODIPine Besylate 5 MG TABLET PO (09:16)
[2023-05-07] MEDS: Propranolol HCL 10 MG TABLET PO ×2 (09:16→20:07)
[2023-05-07] MEDS: Perphenazine 8 MG TABLET PO ×3 (09:16→20:07)
[2023-05-07] MEDS: Montelukast Sodium 10 MG TABLET PO (09:16)
[2023-05-07] MEDS: Cholecalciferol (Vitamin D3) 10 MCG TABLET PO (09:16)
[2023-05-07] MEDS: Docusate Sodium 100 MG CAPSULE PO ×2 (09:16→20:07)
[2023-05-07] MEDS: QUEtiapine Fumarate 50 MG TABLET PO (09:16)
[2023-05-07] MEDS: oxyCODONE HCl Immed Release 5 MG TABLET PO ×2 (09:30→18:51)
[2023-05-07] MEDS: Lidocaine 4 % Patch ADH..PATCH 2 PATCH TRANSDERMA (10:04)
[2023-05-07] MEDS: bisacodyL 5 MG TABLET.DR 10 MG PO (11:21)
[2023-05-07] MEDS: Benzocaine 20 % Oral Gel 9 GM TUBE 1 APPL MUCOUS MEM ×2 (11:23→19:11)
[2023-05-07 12:54] VITALS: BP 117/60; PULSE 89
[2023-05-07 16:42] VITALS: BP 128/67; PULSE 82; TEMP 36.2; O2SAT 100
[2023-05-07] MEDS: Nicotine Polacrilex 2 MG GUM 4 MG BUCCAL (17:06)
[2023-05-07] MEDS: Mirtazapine 30 MG TABLET PO (20:07)
[2023-05-07] MEDS: QUEtiapine Fumarate 400 MG TABLET PO (20:07)
[2023-05-07] MEDS: Prazosin HCL 5 MG CAPSULE PO (20:07)
[2023-05-07 20:45] LABS: Glucose, Whole Blood 116 mg/dL (60-115)
[2023-05-08] MEDS: Acetaminophen 325 MG TABLET 650 MG PO (06:22)
[2023-05-08] MEDS: Omeprazole 20 MG CAPSULE.DR PO (06:22)
[2023-05-08] MEDS: oxyCODONE HCl Immed Release 5 MG TABLET PO (06:22)
[2023-05-08] MEDS: Nicotine Polacrilex 2 MG GUM 4 MG BUCCAL ×2 (06:24→09:19)
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
[2023-05-08 09:10] VITALS: BP 109/51; PULSE 78; RESP 18; TEMP 37.4; O2SAT 96
[2023-05-08] MEDS: Montelukast Sodium 10 MG TABLET PO (09:14)
[2023-05-08] MEDS: Gabapentin 400 MG CAPSULE PO ×3 (09:14→22:08)
[2023-05-08] MEDS: QUEtiapine Fumarate 50 MG TABLET PO (09:14)
[2023-05-08] MEDS: cloNIDine HCL 0.1 MG TABLET PO ×4 (09:14→22:08)
[2023-05-08] MEDS: amLODIPine Besylate 5 MG TABLET PO (09:14)
[2023-05-08] MEDS: DULoxetine HCl 60 MG CAPSULE.DR PO (09:14)
[2023-05-08] MEDS: QUEtiapine Fumarate 100 MG TABLET PO ×2 (09:14→17:45)
[2023-05-08] MEDS: Perphenazine 8 MG TABLET PO ×3 (09:14→22:07)
[2023-05-08] MEDS: Propranolol HCL 10 MG TABLET PO ×2 (09:14→22:10)
[2023-05-08] MEDS: Benztropine Mesylate 0.5 MG TABLET PO ×2 (09:15→22:10)
[2023-05-08] MEDS: Docusate Sodium 100 MG CAPSULE PO ×2 (09:15→22:08)
[2023-05-08] MEDS: Fluticasone/Vilanterol 100/25 BLST.W.DEV 1 PUFF INHALE (09:15)
[2023-05-08] MEDS: Loratadine 10 MG TABLET PO (09:15)
[2023-05-08] MEDS: Cholecalciferol (Vitamin D3) 10 MCG TABLET PO (09:15)
[2023-05-08] MEDS: metroNIDAZOLE 500 MG TABLET PO ×2 (09:39→22:10)
[2023-05-08] MEDS: OLANZapine 5 MG TABLET PO (11:31)
[2023-05-08 12:22] LABS: BV Int Neg Control Negative (Negative); BV Int Pos Control Positive (Positive)
[2023-05-08 13:00] VITALS: BP 133/82; PULSE 89
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
[2023-05-08 13:49] LABS: Potassium 5.1 mmol/L (3.3-5.1)
[2023-05-08 14:06] LABS: Glucose, Whole Blood 98 mg/dL (60-115)
--- NOTE | 2023-05-08 16:30 | PM.EVENT ---
Event Note Date of Service: 05/08/23 Event Note: GI Consult-Full note dictated-History from patient and EMR. Chart and all diagnostic reports reviewed Imp: Irritable Bowel Syndrome Rec: Continue Simethicone as needed. Will add a trial of Dicyclomine prn and add a Lactose free diet. I don't think she needs any endoscopic evaluation nor further diagnostic imaging. D/W patient in detail and tried to reassure her in this regard. Thanks Time Spent With Patient Time: Total time managing care of this patient today ____ minutes.
[2023-05-08 17:40] VITALS: BP 127/73; PULSE 89; TEMP 35.6
[2023-05-08 22:05] VITALS: BP 117/69; PULSE 80; TEMP 35.9
[2023-05-08] MEDS: QUEtiapine Fumarate 400 MG TABLET PO (22:08)
[2023-05-08] MEDS: Mirtazapine 30 MG TABLET PO (22:09)
[2023-05-08] MEDS: Prazosin HCL 5 MG CAPSULE PO (22:09)
--- NOTE | 2023-05-09 01:32 | CONS_ITS ---
DATE OF SERVICE: 05/08/2023 REASON FOR CONSULTATION: Abdominal discomfort. HISTORY OF PRESENT ILLNESS: This has been obtained from the patient and the medical record. The patient is a 47-year-old female, who is currently on the psychiatric unit, but has been complaining of abdominal pain with associated gas and abdominal cramps. The patient describes a long-standing history of abdominal complaints over many years. She describes having undergone at least 1 or 2 upper endoscopies and a colonoscopy in [place]. As far she knows, no particular pathology was found. The patient has had a previous cholecystectomy. She presently describes that she is having a sense of abdominal cramping, gas, and a fairly generalized abdominal discomfort, although the location can vary from day-to-day. She describes that the discomfort can range from the left upper quadrant all the way to the right upper quadrant and then down to the lower abdomen. She did not notice any signs of jaundice, fevers, nor weight loss. She denies any significant heartburn nor dysphagia. She has been eating comfortably. She reports that her bowel movements are regular with a formed easy bowel movement about every other day and without any sign of melena nor hematochezia. She describes that her father may have had colon cancer. Here in the hospital, she has been on omeprazole, but reports that she was not on that at home and does not really have any particular issues with heartburn. She did have a CT scan of the abdomen and pelvis while here that was basically unremarkable. A right upper quadrant ultrasound today did not show any sign of biliary disease nor liver disease. Again, she is status post cholecystectomy. She did have a pelvic ultrasound and was seen by Dr. Garner from [facility], who did not think she had any active [facility] issues at the present time. CURRENT MEDICATIONS: Cogentin, vitamin D, clonidine, Colace, Cymbalta, Neurontin, Atarax p.r.n., lidocaine patch, Claritin, antacids, p.o. Flagyl, milk of magnesia p.r.n., Remeron, Singulair, nicotine patch, Zyprexa, omeprazole, Zofran p.r.n., oxycodone p.r.n., Trilafon, prazosin, propranolol, and Seroquel. PAST MEDICAL HISTORY: Cholecystectomy, rotator cuff surgery, asthma, PTSD, depression, fibromyalgia, hypertension, fibrodysplasia. Previous history of DVT with pulmonary embolus about 2 years ago for which she was on a transient course of anticoagulation with Xarelto. Ovarian cysts with surgery. She describes cervical dysplasia with surgery for that as well. SOCIAL HISTORY: She does smoke. She denies any alcohol. She is single. FAMILY HISTORY: She describes that her father may have had colon cancer. REVIEW OF SYSTEMS: CONSTITUTIONAL: Her appetite has been fairly good. Energy level is fair. CARDIAC: No chest pain. PULMONARY: No cough or hemoptysis. GI: As above. URINARY: No dysuria, no hematuria. NEUROLOGIC: No headache or seizures. PHYSICAL EXAMINATION: The patient is a pleasant, alert, comfortable-appearing female. SKIN: Warm and dry. HEENT: Anicteric sclerae. Moist mucous membranes. CHEST: Clear. CARDIAC: Normal S1, S2. ABDOMEN: Soft, nondistended. There is some mild diffuse tenderness without mass, rebound, or guarding. IMAGING STUDIES: As above with CT scan and ultrasound. The bile duct was normal at 3 mm on the ultrasound. CT scan did not reveal any abnormalities including specifically the pancreas, the GI tract, and biliary tree. LABORATORY DATA: White blood cell count 4.2, hemoglobin 10.5, MCV 89, platelets 240,000. Potassium 5.1. On 05/06, she had sodium 137, potassium 5.3, chloride 107, CO2 of 24, BUN 27, creatinine 0.9. Normal liver profile. Albumin 3.5, lipase 15. Stool was Hemoccult negative back in February. IMPRESSION: Given the patient's clinical history, her good clinical appearance, reportedly negative upper endoscopy and colonoscopy in [place] within the past 2-3 years, and all of her negative imaging studies and laboratories since admission here, I advised her that her current symptomatology is most consistent with that of an irritable bowel syndrome and some pain in relation to some intestinal spasm. I did review these diagnoses in detail and reassured her as best I could. I advised her that I do not think she needs any further imaging studies nor endoscopic evaluation. PLAN: At this point, I advised her the best way to handle this would be with symptomatic treatment. She is already on simethicone and I shall add dicyclomine on a p.r.n. basis as well. I shall also add a lactose-free diet to her plan in the event she has some lactose intolerance contributing to her gas and abdominal cramps. I did advise her to certainly try the symptomatic approach and then if need be, she can be referred back to see me in the office by her primary care provider. Thank you for the consultation. MD ESTHER Flor/PAMELLA / [phone] [email or web address]
[2023-05-09] MEDS: oxyCODONE HCl Immed Release 5 MG TABLET PO ×3 (03:22→20:35)
[2023-05-09] MEDS: QUEtiapine Fumarate 100 MG TABLET PO ×2 (03:23→16:12)
[2023-05-09] MEDS: Nicotine Polacrilex 2 MG GUM 4 MG BUCCAL ×2 (03:25→08:58)
[2023-05-09] MEDS: Omeprazole 20 MG CAPSULE.DR PO (06:23)
[2023-05-09 08:30] VITALS: BP 119/61; PULSE 90; RESP 18; TEMP 36.3; O2SAT 95
[2023-05-09 08:35] LABS: Glucose, Whole Blood 113 mg/dL (60-115)
[2023-05-09] MEDS: Propranolol HCL 10 MG TABLET PO (08:55)
[2023-05-09] MEDS: Docusate Sodium 100 MG CAPSULE PO ×2 (08:56→20:36)
[2023-05-09] MEDS: Loratadine 10 MG TABLET PO (08:56)
[2023-05-09] MEDS: QUEtiapine Fumarate 50 MG TABLET PO (08:56)
[2023-05-09] MEDS: Gabapentin 400 MG CAPSULE PO ×3 (08:56→20:35)
[2023-05-09] MEDS: Cholecalciferol (Vitamin D3) 10 MCG TABLET PO (08:56)
[2023-05-09] MEDS: Perphenazine 8 MG TABLET PO ×3 (08:56→20:36)
[2023-05-09] MEDS: Montelukast Sodium 10 MG TABLET PO (08:56)
[2023-05-09] MEDS: DULoxetine HCl 60 MG CAPSULE.DR PO (08:56)
[2023-05-09] MEDS: Benztropine Mesylate 0.5 MG TABLET PO ×2 (08:57→20:36)
[2023-05-09] MEDS: metroNIDAZOLE 500 MG TABLET PO ×2 (08:57→20:36)
[2023-05-09] MEDS: amLODIPine Besylate 5 MG TABLET PO (08:57)
[2023-05-09] MEDS: cloNIDine HCL 0.1 MG TABLET PO ×3 (08:57→20:36)
[2023-05-09 12:48] VITALS: BP 124/68; PULSE 84
[2023-05-09] MEDS: Acetaminophen 325 MG TABLET 650 MG PO (15:13)
[2023-05-09 15:59] VITALS: BP 97/52; PULSE 86; RESP 18; TEMP 36.6
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
[2023-05-09 20:30] VITALS: BP 103/56; PULSE 79; RESP 18
[2023-05-09] MEDS: Prazosin HCL 5 MG CAPSULE PO (20:35)
[2023-05-09] MEDS: Mirtazapine 30 MG TABLET PO (20:36)
[2023-05-09] MEDS: QUEtiapine Fumarate 400 MG TABLET PO (20:36)
[2023-05-09 20:56] LABS: Glucose, Whole Blood 101 mg/dL (60-115)
[2023-05-10] MEDS: hydrOXYzine HCL 25 MG TABLET PO (05:39)
[2023-05-10] MEDS: oxyCODONE HCl Immed Release 5 MG TABLET PO (05:39)
[2023-05-10] MEDS: Acetaminophen 325 MG TABLET 650 MG PO (05:39)
[2023-05-10] MEDS: Omeprazole 20 MG CAPSULE.DR PO (05:41)
[2023-05-10] MEDS: Perphenazine 8 MG TABLET PO (09:05)
[2023-05-10] MEDS: Propranolol HCL 10 MG TABLET PO (09:05)
[2023-05-10] MEDS: Docusate Sodium 100 MG CAPSULE PO (09:05)
[2023-05-10] MEDS: Benztropine Mesylate 0.5 MG TABLET PO (09:06)
[2023-05-10] MEDS: metroNIDAZOLE 500 MG TABLET PO (09:06)
[2023-05-10] MEDS: amLODIPine Besylate 5 MG TABLET PO (09:06)
[2023-05-10] MEDS: Loratadine 10 MG TABLET PO (09:06)
[2023-05-10] MEDS: cloNIDine HCL 0.1 MG TABLET PO (09:06)
[2023-05-10] MEDS: Montelukast Sodium 10 MG TABLET PO (09:07)
[2023-05-10] MEDS: Cholecalciferol (Vitamin D3) 10 MCG TABLET PO (09:07)
[2023-05-10] MEDS: DULoxetine HCl 60 MG CAPSULE.DR PO (09:07)
[2023-05-10] MEDS: QUEtiapine Fumarate 50 MG TABLET PO (09:07)
[2023-05-10] MEDS: Gabapentin 400 MG CAPSULE PO (09:07)
[2023-05-10] MEDS: Nicotine Polacrilex 2 MG GUM 4 MG BUCCAL (09:09)
[2023-05-10 09:15] VITALS: BP 128/69; PULSE 91; RESP 18; TEMP 36.1; O2SAT 98
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
== END 2023-05-10 13:14 | disposition home or self-care (01) | DRG 882 ==
PROVIDERS: Obstetrics & Gynecology; Physician Assistant; Psychiatry & Neurology Psychiatry; Admitting Provider Psychiatry & Neurology Psychiatry; Visit Provider Clinical Nurse Specialist Psychiatric/Mental Health, Adult
DX: F43.10 Post-traumatic stress disorder, unspecified (principal); R45.851 Suicidal ideations; F25.0 Schizoaffective disorder, bipolar type; G89.4 Chronic pain syndrome; J45.30 Mild persistent asthma, uncomplicated; I10 Essential (primary) hypertension; E87.5 Hyperkalemia; N76.0 Acute vaginitis; R10.2 Pelvic and perineal pain; F19.90 Other psychoactive substance use, unspecified, uncomplicated; F17.210 Nicotine dependence, cigarettes, uncomplicated; Z23 Encounter for immunization; Z91.51 Personal history of suicidal behavior; Z71.6 Tobacco abuse counseling; Z79.51 Long term (current) use of inhaled steroids; Z79.899 Other long term (current) drug therapy
CPT/HCPCS: 0353U; 36415; 74176; 76705; 76830; 76856; 80048; 80053; 81001; 81025; 82947; 83690; 84132; 85025; 87480; 87510; 87660; 90686; 93005; 93975

== ENCOUNTER → 2023-04-28 18:15 | Outpatient (BNV) | payer OTHER, SELFPAY | PROVIDERS: Admitting Provider Psychiatry & Neurology Psychiatry; Visit Provider Psychiatry & Neurology Psychiatry | DX: F43.11 Post-traumatic stress disorder, acute (principal); F19.90 Other psychoactive substance use, unspecified, uncomplicated; N76.0 Acute vaginitis; R10.2 Pelvic and perineal pain | CPT/HCPCS: 90792; 99231; 99232; 99239 ==

== ENCOUNTER → 2023-04-28 18:15 | Outpatient (BNV) | payer OTHER, SELFPAY | PROVIDERS: Admitting Provider Psychiatry & Neurology Psychiatry; Visit Provider Physician Assistant | DX: R30.0 Dysuria (principal); R10.32 Left lower quadrant pain | CPT/HCPCS: 99222; 99499 ==

== ENCOUNTER → 2023-04-28 18:15 | Outpatient (BNV) | payer OTHER, SELFPAY | PROVIDERS: Admitting Provider Psychiatry & Neurology Psychiatry; Visit Provider Obstetrics & Gynecology | DX: N76.0 Acute vaginitis (principal); R10.2 Pelvic and perineal pain | CPT/HCPCS: 99222 ==

== ENCOUNTER 2023-06-08 11:15 | Outpatient (AMB) | payer OTHER, SELFPAY ==
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
[2023-06-08 11:29] VITALS: BMI 44.2
== END 2023-06-08 11:59 | disposition home or self-care (01) ==
PROVIDERS: PCP Internal Medicine; Visit Provider Physician Assistant
DX: M17.12 Unilateral primary osteoarthritis, left knee (principal)
CPT/HCPCS: 99203

== ENCOUNTER 2023-06-08 16:33 | Outpatient (REF) | payer OTHER, SELFPAY ==
--- NOTE | ~2023-06-08 | XR_ITS ---
EXAMINATION: XR LEFT KNEE CLINICAL INFORMATION: Left knee pain COMPARISON: None TECHNIQUE: AP standing view of bilateral knees. Lateral and sunrise views of the left knee. FINDINGS: Left knee: Mild lateral joint space narrowing. Prominent lateral and posterior patellar osteophytes. Small quadriceps enthesophyte. Trace joint effusion. Right knee: AP standing view demonstrates tiny medial and lateral marginal osteophytes. XR/XR knee LT 2V IMPRESSION: Mild degenerative changes left knee.
--- NOTE | ~2023-06-08 | XR_ITS ---
EXAMINATION: XR LEFT KNEE CLINICAL INFORMATION: Left knee pain COMPARISON: None TECHNIQUE: AP standing view of bilateral knees. Lateral and sunrise views of the left knee. FINDINGS: Left knee: Mild lateral joint space narrowing. Prominent lateral and posterior patellar osteophytes. Small quadriceps enthesophyte. Trace joint effusion. Right knee: AP standing view demonstrates tiny medial and lateral marginal osteophytes. XR/XR knee standing BI IMPRESSION: Mild degenerative changes left knee.
== END 2023-06-08 16:34 | disposition home or self-care (01) ==
LOC: HO.HOSX 16:33
PROVIDERS: Visit Provider Physician Assistant
DX: M17.12 Unilateral primary osteoarthritis, left knee (principal); M25.561 Pain in right knee
CPT/HCPCS: 73560; 73565

== ENCOUNTER 2023-08-16 12:13 | Outpatient (AMB) | payer OTHER, SELFPAY ==
--- NOTE | 2023-08-16 13:06 | A.OFFVIS_ITS ---
Intake Vital Signs 08/16/23 13:09 Height 5 ft 9 in Weight 330 lb 8 oz BMI 48.8 BP 167/92 H Blood Pressure Location Lt brachial Position Sitting Respiration 20 Pulse 89 Pulse Source Pulse Oximeter Pulse Oximetry (%) 95 Oxygen Delivery Method Room Air Intake Visit Reasons: Unilateral primary osteoarthritis, left knee/lvm Allergies aspirin Allergy (Unknown, Verified 08/16/23 13:05) Unknown codeine Allergy (Unknown, Verified 08/16/23 13:05) Unknown haloperidol [From Haldol] Allergy (Unknown, Verified 08/16/23 13:05) Unknown NSAIDS (Non-Steroidal Anti-Inflamma Allergy (Unknown, Verified 08/16/23 13:05) Unknown risperidone [From Risperdal] Allergy (Unknown, Verified 08/16/23 13:05) Unknown tramadol Allergy (Unknown, Verified 08/16/23 13:05) Unknown trazodone Allergy (Unknown, Verified 08/16/23 13:05) Unknown prozac Allergy (Unknown, Uncoded 06/08/23 11:30) Unknown HPI HPI Comments History of Present Illness Details Murali is a very pleasant 47-year-old female who presented to the office today for evaluation and management of her chronic left knee pain. Patient was referred here by Orthopedics after failing conservative therapy and no improvement after multiple cortisone injections. Patient reports that she has been suffering with left knee pain for many years. She has previously been diagnosed with osteoarthritis of the knee. Patient recently evaluated by orthopedics who ultimately referred her here for consideration of genicular nerve block. Patient reports pain currently is 8/10, constant, throughout the entire day and night. Pain is worse with walking, standing and when she tries to sleep. Patient completed 6 weeks of physical therapy several months ago and then another 13 visits of physical therapy over the summer. She states physical therapy did not provide her any relief. Patient has documented allergy to nonsteroidal anti-inflammatory medications. She has tried Tylenol without improvement of her pain. She has tried topical medications that also did not provide her relief. She is currently taking cyclobenzaprine with minimal improvement of her pain. Patient was prescribed gabapentin but it caused her to retain fluid so she discontinued it. In terms of muscle damage condition is described as spasming, shooting and throbbing. Pain is negatively impacting patient's general activity, relations with people, sleep and walking. Patient denies the current use of alcohol or illicit substances. Patient is 1/2 pack per day smoker. She currently resides in a homeless jail in [place]. [facility] Medical History Asthma HTN (hypertension) BUZZ (iron deficiency anemia) Polysubstance abuse Polysubstance use disorder PTSD (post-traumatic stress disorder) Schizoaffective disorder, bipolar type Social History (Updated 06/08/23 @ 11:31 by Beatriz Lentz [facility]) Household Members: None Housing: Apartment Do you presently have visiting nurse or other home services: No Patient Tobacco Use Status: Current everyday Tobacco user Tobacco use type: Cigarette Cigarette Packs Per Day: 1 Cigarettes Per Day: 20.0 Years Smoked: 30 e-Cigarette/Vaping Use: Currently Using Second Hand Smoke Exposure: Yes Substance Use Type: Crack/Cocaine service: No Current occupational status: unemployed Sexual orientation: Straight/Heterosexual Review of Systems Const All systems reviewed & are unremarkable except as noted in HPI and below Physical Exam Vital Signs: Last Vital Signs Pulse 89 08/16/23 13:09 Resp 20 08/16/23 13:09 BP 167/92 H 08/16/23 13:09 Pulse Ox 95 08/16/23 13:09 Oxygen Delivery Method Room Air 08/16/23 13:09 BMI result Body Mass Index 48.8 General: awake, alert, oriented. Answers questions appropriately. Fully engaged in examination. Skin: warm, dry, intact HEENT: Normocephalic. Hearing intact. Cardiac: External chest normal in appearance. Respiratory: No cough, audible wheezing or stridor. Abdomen: without gross distension. MS: No obvious swelling or deformities. Able to transition from sit to stand unassisted. Ambulates with bilaterally normal heel strike and toe off Left knee: full ROM. +crepitus. Medial and lateral joint tenderness. minimal posterior tenderness. Neurological: Oriented to person, place, time and situation. Thought process intact. No gait abnormalities appreciated. Psychiatric: Appropriate mood and affect. Good judgment and insight. Results Reviewed Results Reviewed: 06/08/23 FINDINGS: Left knee: Mild lateral joint space narrowing. Prominent lateral and posterior patellar osteophytes. Small quadriceps enthesophyte. Trace joint effusion. Right knee: AP standing view demonstrates tiny medial and lateral marginal osteophytes. IMPRESSION: Mild degenerative changes left knee. Assessment & Plan Assessment & Plan (1) Osteoarthritis of left knee: Code(s): M17.12 - Unilateral primary osteoarthritis, left knee (2) Chronic pain of left knee: Code(s): M25.562 - Pain in left knee; G89.29 - Other chronic pain Plan Patient presents to the office today for evaluation and management of her chronic left knee pain. She has exhausted conservative therapy including PT, home exercise program, Tylenol, topical medications and cortisone injections. Patient reports documented allergy to nonsteroidal anti-inflammatory medications. Patient states that she has been taking cyclobenzaprine with minimal improvement of her pain, she stopped the gabapentin as it caused fluid retention. Will try methocarbamol 500 mg p.o. 3 times daily as needed, patient advised on cautions for use. Discussed options for treatment including diagnostic interventional testing, steroid injections, peripheral nerve stimulation with Sprint, RFA and more permanent neuromodulation. Will schedule patient for fluoroscopy guided left diagnostic genicular nerve block with local anesthetic. If patient reports good results will plan for left genicular RFA. All questions and concerns have been answered and patient agrees with the plan. Follow up after injections and sooner if needed. Medications: New methocarbamol may cause drowsiness, no driving or alcohol use while taking this medication. 500 mg PO TID PRN 30 tabs 0RF muscle spasm Coding Level of Care Code New Pt Level 4 (80421) Diagnoses Osteoarthritis of left knee M17.12 Chronic pain of left knee M25.562; G89.29
[2023-08-16 13:09] VITALS: BP 167/92; PULSE 89; RESP 20; O2SAT 95; BMI 48.8
== END 2023-08-16 14:03 | disposition home or self-care (01) ==
PROVIDERS: PCP Internal Medicine; Visit Provider Registered Nurse Emergency
DX: G89.29 Other chronic pain (principal); M17.12 Unilateral primary osteoarthritis, left knee; M25.562 Pain in left knee
CPT/HCPCS: 99204

== ENCOUNTER → 2023-08-16 12:13 | Outpatient (BNVA) | payer OTHER, SELFPAY | PROVIDERS: PCP Internal Medicine; Visit Provider Registered Nurse Emergency | DX: M17.12 Unilateral primary osteoarthritis, left knee (principal); M25.562 Pain in left knee; G89.29 Other chronic pain | CPT/HCPCS: 99202 ==

== ENCOUNTER 2023-08-24 09:36 | Outpatient (REF) | payer OTHER, SELFPAY | END 2023-08-24 09:37 | disposition home or self-care (01) | LOC: HO.HOSX 09:36 | PROVIDERS: Visit Provider Physician Assistant | DX: Z13.89 Encounter for screening for other disorder (principal) ==

== ENCOUNTER 2023-09-04 08:34 | Outpatient (REF) | payer OTHER, SELFPAY | END 2023-09-04 08:35 | disposition home or self-care (01) | LOC: HO.HOSX 08:34 | PROVIDERS: Visit Provider Physician Assistant | DX: Z13.89 Encounter for screening for other disorder (principal) ==

== ENCOUNTER 2023-09-19 06:13 | Outpatient (REF) | payer OTHER, SELFPAY ==
--- NOTE | ~2023-09-19 | FL_ITS ---
EXAMINATION: XR FLUOROSCOPY WITH IMAGES CLINICAL INFORMATION: Pain in left knee. COMPARISON: Knee radiographs 06/08/2023. TECHNIQUE: Fluoroscopy Supervised By: Dr. Chase Patiño. Fluoroscopy Time: 0.2 minutes. Cumulative Dose: 2.68 mGy. DAP: 0.0465 Gycm2. Images: 2. FINDINGS: Two films are submitted, the first demonstrates needles at the level of the distal metaphysis of the femur bilaterally. The second radiograph demonstrates a single needle overlying the tibial metaphysis. Degenerative changes are present in the knee. FL/FL guidance in treatment room IMPRESSION: Fluoroscopy provided for pain management procedure.
== END 2023-09-19 06:14 | disposition home or self-care (01) ==
LOC: CF 06:13
PROVIDERS: Visit Provider Anesthesiology
DX: M17.12 Unilateral primary osteoarthritis, left knee (principal); G89.29 Other chronic pain
CPT/HCPCS: 64454; J2795

== ENCOUNTER 2023-09-19 10:25 | Outpatient (AMB) | payer OTHER, SELFPAY ==
--- NOTE | 2023-09-19 10:25 | MHC.OFFVIS ---
Intake Vital Signs 09/19/23 10:33 09/19/23 10:34 Height 5 ft 9 in 5 ft 9 in Weight 330 lb 8 oz 330 lb 8 oz BMI 48.8 48.8 BP 138/64 136/72 Blood Pressure Location Rt brachial Lt brachial Position Sitting Sitting Respiration 16 16 Pulse 100 88 Pulse Source Pulse Oximeter Pulse Oximeter Pulse Oximetry (%) 98 99 Oxygen Delivery Method Room Air Room Air Comment pre-op Post-op Intake Visit Reasons: LEFT DIAGNOSTIC GENICULAR NERVE BLOCK Allergies aspirin Allergy (Unknown, Verified 09/19/23 10:34) Unknown codeine Allergy (Unknown, Verified 09/19/23 10:34) Unknown haloperidol [From Haldol] Allergy (Unknown, Verified 09/19/23 10:34) Unknown NSAIDS (Non-Steroidal Anti-Inflamma Allergy (Unknown, Verified 09/19/23 10:34) Unknown risperidone [From Risperdal] Allergy (Unknown, Verified 09/19/23 10:34) Unknown tramadol Allergy (Unknown, Verified 09/19/23 10:34) Unknown trazodone Allergy (Unknown, Verified 09/19/23 10:34) Unknown prozac Allergy (Unknown, Uncoded 06/08/23 11:30) Unknown [facility] Medical History Asthma HTN (hypertension) BUZZ (iron deficiency anemia) Polysubstance abuse Polysubstance use disorder PTSD (post-traumatic stress disorder) Schizoaffective disorder, bipolar type Social History (Updated 06/08/23 @ 11:31 by ADIN Parra) Household Members: None Housing: Apartment Do you presently have visiting nurse or other home services: No Patient Tobacco Use Status: Current everyday Tobacco user Tobacco use type: Cigarette Cigarette Packs Per Day: 1 Cigarettes Per Day: 20.0 Years Smoked: 30 e-Cigarette/Vaping Use: Currently Using Second Hand Smoke Exposure: Yes Substance Use Type: Crack/Cocaine service: No Current occupational status: unemployed Sexual orientation: Straight/Heterosexual Physical Exam Vital Signs: Last Vital Signs Pulse 88 09/19/23 10:34 Resp 16 09/19/23 10:34 BP 136/72 09/19/23 10:34 Pulse Ox 99 09/19/23 10:34 Oxygen Delivery Method Room Air 01/23/24 10:34 BMI result Body Mass Index 48.8 Assessment & Plan Assessment & Plan (1) Osteoarthritis of left knee: Code(s): M17.12 - Unilateral primary osteoarthritis, left knee Plan: Left diagnostic genicular nerve block. Informed consent was explained to the patient. All questions were explained and answered. The patient was taken inside the operating room. The patient was positioned supine on operating table with her right leg elevated on a gel bin. Time-out was performed delineating correct site, side, the nature of the procedure, patient's allergy, preoperative antibiotic if needed. All operating room staff was participating in OR time-out procedure. C-arm was brought over the operating field and picture of the left knee was demonstrated on the screen. Anterolateral and anteromedial surfaces of the knee as well as lower leg and the lower thigh were prepped with chloroprep and draped with utility towels. The point of interest were delineated for: FOR: superior lateral genicular nerve (branch of lateral femoral cutaneous nerve) as the connection of the metaphysis of the left femur with corresponding diaphysis on the lateral silhouette of the femur distal bone, For superior medial genicular nerve (suprapatellar saphenous nerve) the point of interest was delineated is the connection of metaphysis of left femur with corresponding diaphysis on the medial silhouette on the femoral distal bone. For inferior medial genicular nerve (infrapatellar saphenous nerve) the point of interest was delineated as connection of metaphysis of the proximal tibia on the medial side with corresponding diaphysis of the same bone. The projections of the points of interest on anterior surface of the right knee was injected with small amount of lidocaine 2% 1-to 2 ml. After that to needles 22 gauge 3-1/2 inch long were driven to were the point of interest in tunnel vision fashion. When the needle gently contacted the bones the C arm view was turned lateral , care was taken to superimpose condyles of the knee. With condyles superimpsed the needles were adjusted the way the tips of the needle positioned at the middle of the shaft of the bone. After that injection of ropivacaine o.5% 1 to 1.5 mls was performed at each needle location. the needles were removed and bandaids were applied. the patient tolerated the procedure very well. (2) Chronic pain of left knee: Code(s): M25.562 - Pain in left knee; G89.29 - Other chronic pain Plan Patient presents to the office today for evaluation and management of her chronic left knee pain. She has exhausted conservative therapy including PT, home exercise program, Tylenol, topical medications and cortisone injections. Patient reports documented allergy to nonsteroidal anti-inflammatory medications. Patient states that she has been taking cyclobenzaprine with minimal improvement of her pain, she stopped the gabapentin as it caused fluid retention. Will try methocarbamol 500 mg p.o. 3 times daily as needed, patient advised on cautions for use. Discussed options for treatment including diagnostic interventional testing, steroid injections, peripheral nerve stimulation with Sprint, RFA and more permanent neuromodulation. Will schedule patient for fluoroscopy guided left diagnostic genicular nerve block with local anesthetic. If patient reports good results will plan for left genicular RFA. All questions and concerns have been answered and patient agrees with the plan. Follow up after injections and sooner if needed. Orders: Orders FL guidance in treatment room Today G89.29 - Other chronic pain, M25.562 - Pain in left knee Coding Level of Care Code Procedure Only Diagnoses Osteoarthritis of left knee M17.12 Chronic pain of left knee M25.562; G89.29
--- OUTSIDE RECORDS SUMMARY | 2023-09-19 10:26 | XMS_ITS | Continuity of Care Document ---
Author Name Unknown Organization [facility] Address [address] [place] [address]- Care Team Providers Care Swage Tender Name Role Phone Polly Vuong MD, V Primary Care Physician Encounter [facility] Date(s): 05/13/23 - 05/13/[address] [address]- Encounter Diagnosis Chest pain(Final) - 05/13/23 Cocaine intoxication(Final) - 05/13/23 Discharge Disposition: A-D/C Home Attending Physician: Leticia Beauchamp DO Admitting Physician: Leticai Beauchamp DO Referring Physician: Not on Staff, Referring MD Allergies, Adverse Reactions, Alerts Substance Reaction Severity Status codeine Active aspirin Active TraMADol Hydrochloride Activ e Haldol Active NSAIDs Active PROzac Active Immunizations Given and Recorded Vaccine Date Status Refusal Reason [id number] bivalent booster vax 06/21/22 Recorded tetanus/diphtheria/pertussis, acel(Tdap) 1 05/14/21 Given SARS-CoV-2 (COVID-19) Ad26 vaccine 2 02/15/21 Give n Influenza Virus Vaccine (oldterm) 06/11/20 Recorde d 1Result Comment: [facility] [id number] 2Result Comment: [facility] [id number] Medications amLODIPine 5 mg oral tablet 0 [...] 1 Refills, Maintenance, 11/08/22 11:26:00EDT, EC Capsule, [facility], Partial fill upon patient request if [...] capsule, 1 Refills, Maintenance, 02/27/23 15:17:00 [facility], [facility] [...] Exam Date Time Procedure Performing Provider Status 05/13/23 5:08 PM Chest Portable Merary Cadet; Loree (Verified) Notes: (Chest Portable) Reason For Exam: Shortness of Breath RESULT: Chest Portable Examination: Portable chest performed on 11/10/2022. History: Shortness of breath. Findings: A frontal view of the chest is compared to a prior study dated 01/20/2023. The cardiac and mediastinal silhouettes are within normal limits. The lungs are clear. The osseous and soft tissue structures are unremarkable. IMPRESSION: There is no acute cardiopulmonary disease WSN: [id number] Ordering Physician: Leticia Beauchamp Dictated By: Sandi Harmon MD Dictated Date/Time: 05/13/23 5:14 pm Reviewed By: Sandi Harmon MD Signed By: Sandi Harmon MD Signed Date/Time: 05/13/23 5:14 pm Transcribed By: CALEB Transcribed Date/Time: 05/13/23 5:11 pm Vital Signs Most recent to oldest [Reference Range]: 1 2 3 Height 177 cm (05/13/23 9:12 PM) 177 cm (05/13/23 3:36 PM) 177 cm (05/13/23 2:53 PM) Weight 138.5 kg (05/13/23 9:12 PM) 138.5 kg (05/13/23 3:36 PM) 138.5 kg (05/13/23 2:53 PM) Oxygen Saturation [94-100 %] 98 % (05/13/23 9:12 PM) 96 % (05/13/23 2:53 PM) Pulse Rate [55-90 bpm] 105 bpm *H* (05/13/23 9:12 PM) 106 bpm *H* (05/13/23 2:53 PM) Body Mass Index [18.5-24.99 kg/m2] 44.21 kg/m2 *>HHI* (05/13/23 9:12 PM) 44.21 kg/m2 *>HHI* (05/13/23 3:36 PM) Blood Pressure [90-138/55-84 mm Hg] 144/76mm Hg *H* (05/13/23 9:12 PM) 144/85mm Hg *H* (05/13/23 2:53 PM) Respiratory Rate [16-30 br/min] 18 br/min (05/13/23 9:12 PM) 13 br/min *L* (05/13/23 2:53 PM) Temperature [96.8-100.4 DegF] 98.4 DegF (05/13/23 9:12 PM) 97.9 DegF (05/13/23 3:36 PM) Liters per Minute 0 L/min (05/13/23 9:12 PM) Mode of Delivery (Oxygen) Room air (05/13/23 9:12 PM) Room air (05/13/23 2:53 PM) Blood pressure sites Arm, left (05/13/23 9:12 PM) Arm, left (05/13/23 2:53 PM) Temperature Route Oral (05/13/23 9:12 PM) Oral (05/13/23 3:36 PM) Dry Weight 138.5 kg (05/13/23 9:12 PM) 138.5 kg (05/13/23 3:36 PM) 138.5 kg (05/13/23 2:53 PM) Weight Obtained Via Patient/family state d (05/13/23 2:53 PM) Dry Weight Obtained Via Patient/family s tated (05/13/23 2:53 PM) Social History Social History Type Response Smoking Status 10 or more cigarette s (1/2 pack or more)/day in last 30 days; Interested in cessation: No; Patient wants NRT during admission Yes; Other: 1/2 pack daily; entered on: 01/13/22 Sex Note * Leticia Beauchamp DO: PERFORM Event Display: Patient Education Leaflets Authored Date: [id number] Cocaine and Crack Abuse ?? [id number] Cocaine and Crack Abuse Cocaine is typically snorted or injected into a vein. It can also be rubbed onto the gums.??Crack is made from cocaine. It can be smoked for a stronger effect. Cocaine causes a very powerful mental and physical dependence.?? Once you have a dependence, you'll do just about anything to get the drug and have the feeling it gives you. This can increase your risk for: ??? Overdose that may lead to ??? Loss of your job, your home, or your family ??? Accidental injuries to yourself or others while you are under the influence of the drug (in a car or at home) ??? Arrest, conviction, and halfway sentence for possession of an illegal substance or for driving underthe influence Medically, cocaine can affect every organ in your body.??It can cause: ??? Chest pain, heart rhythm problem (arrhythmia), heart attack, and heart failure ??? Very high blood pressure ??? Severe headache, seizures, loss of consciousness, and stroke ??? Anxiety, psychosis, confusion, paranoia, and hallucinations ??? Nasal damage from snorting ??? Nausea, belly (abdominal) pain, and loss of appetite ??? Chronic bronchitis and shortness of breath from smoking ??? Higherrisk for HIV infection, hepatitis B or C, and heart infection. This is from IV use, risky sexual behavior while high, or both.? Kidney failure Home care These tips will help you care for yourself at home: ??? Admit you have a drug problem. Ask for help from your family and close friends. ??? See a mental health provider or counselor if you have depression or anxiety. ??? Join a self-help group for drug abuse. ??? Stay away from people who abuse drugs themselves or who tempt you to continue abusing the drug. ??? Eat a balanced diet and start a regular exercise program. If you continue to use IV cocaine, lower your risk of getting or spreading infection by: ??? Using only sterile equipment ??? Not reusing or sharing equipment ??? Cleaning your skin before injecting ?? Follow-up care Follow up with your healthcare provider, or as advised. Contact 1 of the resources below for help: ??? Substance Abuse and Mental Health Treatment Administration (SAMHSA) at www.samhsa.gov/find-treatment or 950-882-AGWT ??? [facility] [place] on Drug Abuse (LUCY) at www.drugabuse.gov ? National [place] on Alcoholism and Drug Dependence at www.ncadd.org ??? Narcotics Anonymous at www.na.org ?? Call 911 Call 911 if any of these occur: ??? Seizure ??? Hard time breathing or slow, irregular breathing ??? Chest pain ??? Sudden weakness on 1 side of your body or sudden trouble speaking ??? Very drowsy or trouble waking up ??? Fast heart rate ?? When to get medical advice Call your healthcare provider right away if any of the following occur: ??? Agitation, anxiety, or unable to sleep ??? Unintended weight loss. This means more than 10 to 15 pounds over 6 months without dieting. ??? Hallucination, severe depression, or thoughts of harming yourself or another ??? Fever of 100.4??F??(38??C) or higher, or as advised by your provider ??? Redness, pain, or swelling at an injection site ??? Loss of vision or decreased vision ?? Last Reviewed Date: 2022 ?? 9996-3737 [employer]. All rights reserved. This information is not intended as a substitute for professional medical care. Always follow your healthcare professional's instructions. ?? Patient Care team information Care Team Personnel Name: Mahendra Maria Position: [facility] RN Member Role: Primary Care Nurse Name: Jeni Solorio RN Position: [facility] RN Member Role: Primary Care Nurse Name: Rebekah Delatorre RN Position: [facility] RN Member Role: Primary Care Nurse Name: Polly Vuong MD, V Position: [facility] Physician - Primary Care Member Role: PCP Address: Address: [address] [place] [id number]- Name: Sandi Hightower RN Position: [facility] RN Member Role: Primary Care Nurse Name: Angelita Almeida RN Position: [facility] RN Member Role: Primary Care Nurse Name: Marcelino Fermin RN Position: [facility] RN Member Role: Primary Care Nurse Name: Michelle Delgado Position: [facility] ED [facility] Member Role: Joy Loading Machine Operator Name: Sandra Gonzales Position: [facility] Member Role: Patient Care Provider Name: Esvin Stewart RN Position: [facility] ED RN W/OE and Tasks Member Role: Patient Care Provider Name: Leticia Beauchamp DO Position: [facility] Resident Member Role: Admitting Physician Address: Address: [address] [place] [address] [place] [address]- Care Team Related Persons Name: KEY DEWEY Name: AIDA DEWEY Address: [place] [address] Name: CARLIN ORTEGA
--- OUTSIDE RECORDS SUMMARY | 2023-09-19 10:27 | XMS_ITS | Continuity of Care Document ---
Author Name Unknown Organization [facility] Address [address] [place] [address]- Care Team Providers Care Interactive Media Marketing Specialist Name Role Phone Yevgeniy ÁLVAREZ, Polly Kapoor Primary Care Physician [phone] Encounter [facility] [place] [facility] [place] Date(s): 07/28/23 - 08/27/23 [facility] [address] [place], [place] [address] Allergies, Adverse Reactions, Alerts Substance Reaction Severity Status codeine Active aspirin Active Haldol Active NSAIDs Active PROzac Active TraMADol Hydrochloride Activ e Immunizations Given and Recorded Vaccine Date Status Refusal Reason influenza virus vaccine, inactivated 07/17/23 Give n [id number] bivalent booster vax 06/21/22 Recorded tetanus/diphtheria/pertussis, acel(Tdap) 1 05/14/21 Given SARS-CoV-2 (COVID-19) Ad26 vaccine 2 02/15/21 Give n Influenza Virus Vaccine (oldterm) 06/11/20 Recorde d 1Result Comment: [facility] [place] [id number] 2Result Comment: [facility] [place] [id number] Medications albuterol CFC free 90 mcg/inh inhalation aerosol 180 mcg, 2, puffs, Inhalation, Every 6 hours, PRN, # 8 Gm, Refills 6, Tot. Refills 6, Maintenance, 07/31/23 12:32:00 EST, Inhaler, Route to Pharmacy Electronically, [id number], [id number] ([facility]), 175, cm, 07/26... Start Date: 07/31/23 Status: Ordered amLODIPine 10 mg oral tablet 1 tablet = 10 mg, By Mouth, Daily, # 90 tablet, 0 Refills, Maintenance, 07/26/23 10:51:00 EST, Tablet, [id number] ([facility]), Partial fill upon patient request if the prescription is for aschedule II opioid drug., 175, cm, 07/26/23 8:30:00... Start Date: 07/26/23 Status: Ordered capsaicin 0.025% topical cream Topically, 3 times a day, 0 Refills, Maintenance, 03/27/23 14:31:00 EDT, Partial fill upon patient request if the prescription is for a schedule II opioid drug. Start Date: 03/27/23 Status: Ordered clonazePAM 1 mg oral tablet = 1 mg, By Mouth, 3 times a day, PRN Anxiety, # 21 tablet, 0 Refills, Maintenance, 07/26/23 10:51:00 EST, Tablet, [facility] ([facility]), Partial fill upon patient request if the prescription is for a schedule II opioid drug., 175, cm, 07/26... Start Date: 07/26/23 Status: Ordered cloNIDine 0.1 mg oral tablet 0.1 mg, By Mouth, 3 times a day, PRN, # 90 tablet, Refills 0, Tot. Refills 0, Maintenance, Anxiety,07/26/23 10:51:00 EST, Route to Pharmacy Electronically, [id number] ([facility]), Partial fill upon patient request if the prescription is for... Start Date: 07/26/23 Status: Ordered cyanocobalamin 1000 mcg oral tablet, extended release 1 tablet = 1,000 mcg, By Mouth, Daily, # 90 tablet, 3 Refills, Maintenance, 08/11/23 12:10:00 EST, ER Tablet, [facility] [id number] ([facility]), Partial fill upon patient request if the prescription is for a schedule II opioid drug., 175, cm, 07/26/23... Start Date: 08/11/23 Status: Ordered cyclobenzaprine 10 mg oral tablet 10 mg, By Mouth, 3 times a day, PRN, # 24 each, Refills 1, Tot. Refills 1, Maintenance, Pain , Moderate, 08/11/23 16:09:00 EST, Route to Pharmacy Electronically, [id number] ([facility]), Partial fill upon patient request if the prescription i... Start Date: 08/11/23 Status: Ordered diclofenac 1% topical gel = 4 Gm, Topically, 4 times a day, to each knee. not to exceed 16 grams/day/single joint of lower extremities, # 480 Gm, 0 Refills, Maintenance, 07/26/23 10:51:00 EST, Gel, [facility] [address] ([id number]), Partial fill upon patient request if the pr... Start Date: 07/26/23 Status: Ordered diclofenac 1% topical gel = 2 Gm, Topically, 4 times a day, to L shoulder not to exceed 8 grams/day/single joint of upper extremities, # 240 Gm, 0 Refills, Maintenance, 07/26/23 10:51:00 EST, Gel, [facility] [id number] ([facility]), Partial fill upon patient request if the pre... Start Date: 07/26/23 Status: Ordered divalproex sodium 250 mg oral tablet, extended release = 750 mg, By Mouth, Daily, # 90 tablet, 0 Refills, Maintenance, 07/26/23 10:51:00 EST, ER Tablet, [facility] [id number] ([facility]), Partial fill upon patient request if the prescription is for a schedule II opioid drug., 175, cm, 07/26/23 8:30:00 EST,... Start Date: 07/26/23 Status: Ordered fluticasone-vilanterol 100 mcg-25 mcg/inh inhalation powder 1 puffs, Inhalation, Daily, Rinse mouth after each use, # 1 each, 6 Refills, Maintenance, 07/31/23 12:33:00 EST, Inhaler, [facility] ([facility]), Partial fill upon patient request if the prescription is for a schedule II opioid drug., 1 puff... Start Date: 07/31/23 Status: Ordered gabapentin 400 mg oral capsule 400 mg, By Mouth, 3 times a day, # 90 capsule, Refills 0, Tot. Refills 0, Maintenance, 07/26/23 10:51:00 EST, Route to Pharmacy Electronically, [facility] [id number] ([facility]), Partial fill upon patient request if the prescription is for a schedule I... Start Date: 07/26/23 Stop Date: 08/25/23 Status: Ordered hydrOXYzine pamoate 50 mg oral capsule = 50 mg, By Mouth, 3 times a day, PRN Anxiety, # 90 capsule, 0 Refills, Maintenance, 07/26/23 10:49:00 EST, Capsule, [facility] [id number] ([facility]), Partial fill upon patient request if the prescription is for a schedule II opioid drug., 175, cm, 11... Start Date: 07/26/23 Status: Ordered lidocaine 5% topical film 1 patch, Topically, Daily, PRN Pain , Mild, # 30 patch, 0 Refills, Maintenance, 07/26/23 10:44:00 EST, Patch, [facility] [id number] ([facility]), Partial fill upon patient request if the prescription is for a schedule II opioid drug., 1 patch Topically... Start Date: 07/26/23 Status: Ordered loratadine 10 mg oral tablet 10 mg, By Mouth, Daily, # 30 tablet, Refills 0, Tot. Refills 0, Maintenance, 07/26/23 10:45:00 EST,Route to Pharmacy Electronically, [facility] [id number] ([facility]), Partial fill upon patient request if the prescription is for a schedule II opioid d... Start Date: 07/26/23 Status: Ordered montelukast 10 mg oral tablet 10 mg, 1, tablet, By Mouth, Daily, # 30 tablet, Refills 0, Tot. Refills 0, Maintenance, 07/26/23 10:51:00 EST, Route to Pharmacy Electronically, [facility] [id number] ([facility]), Partial fill upon patient request if the prescription is for a schedule... Start Date: 07/26/23 Stop Date: 08/25/23 Status: Ordered nicotine 21 mg/24 hr transdermal film, extended release 1 patch, Topically, Daily, # 30 patch, 0 Refills, Maintenance, 07/26/23 10:45:00 EST, Patch, [facility] [id number] ([facility]), Partial fill upon patient request if the prescription is for a schedule II opioid drug., 1 patch Topically Daily, 175, cm, 1... Start Date: 07/26/23 Status: Ordered omeprazole 40 mg oral enteric coated capsule 1 capsule = 40 mg, By Mouth, Daily, # 30 capsule, 1 Refills, Maintenance, 07/26/23 10:51:00 EST, ECCapsule, [facility] ([facility]), Partial fill upon patient request if the prescription isfor a schedule II opioid drug., 175, cm, 07/26/23 8... Start Date: 07/26/23 Status: Ordered oxyCODONE 5 mg oral tablet 5 mg, By Mouth, Every 6 hours, PRN, # 16 tablet, Refills 0, Tot. Refills 0, Maintenance, Pain , Severe, 07/26/23 10:50:00 EST, Route to Pharmacy Electronically, [facility] ([facility]), Partial fill upon patient request if the prescription is... Start Date: 07/26/23 Status: Ordered prazosin 1 mg oral capsule 2 mg, By Mouth, Daily at bedtime, # 30 capsule, Refills 0, Tot. Refills 0, Maintenance, 08/08/23 16:57:00 EST, Route to Pharmacy Electronically, [id number] ([facility]), Partial fill upon patient request if the prescription is for a schedule... Start Date: 08/08/23 Status: Ordered predniSONE 10 mg oral tablet = 30 mg, By Mouth, Every 24 hours, # 3 tablet, 0 Refills, Maintenance, 07/31/23 7:00:00 EST, Tablet, [facility] [id number] ([facility]), Partial fill upon patient request if the prescription is for a schedule II opioid drug., 175, cm, 07/26/23 8:30:00 E... Start Date: 07/31/23 Stop Date: 08/03/23 Status: Ordered predniSONE 10 mg oral tablet = 10 mg, By Mouth, Every 24 hours, # 3 tablet, 0 Refills, Maintenance, 08/06/23 7:00:00 EST, Tablet, [facility] [address] ([facility]), Partial fill upon patient request if the prescription is for a schedule II opioid drug., 175, cm, 07/26/23 8:30:00 E... Start Date: 08/06/23 Stop Date: 08/09/23 Status: Ordered predniSONE 50 mg oral tablet = 50 mg, By Mouth, Once, # 1 each, 0 Refills, Soft Stop, 07/27/23 7:00:00 EST, Tablet, [facility] [address] ([facility]), Partial fill upon patient request if the prescription is for a schedule II opioid drug., 175, cm, 07/26/23 8:30:00 EST, Height, 14... Start Date: 07/27/23 Status: Ordered QUEtiapine 100 mg oral tablet 100 mg, By Mouth, 2 times a day, PRN, # 60 tablet, Refills 0, Tot. Refills 0, Maintenance, Anxiety,07/26/23 10:51:00 EST, Route to Pharmacy Electronically, [facility] [address] ([facility]), Partial fill upon patient request if the prescription is for... Start Date: 07/26/23 Status: Ordered QUEtiapine 400 mg oral tablet 1 tablet = 400 mg, By Mouth, Daily at bedtime, # 30 tablet, 0 Refills, Maintenance, 07/26/23 10:51:00 EST, Tablet, [facility] ([facility]), Partial fill upon patient request if the prescription is for a schedule II opioid drug., 175, cm, 06/29... Start Date: 07/26/23 Status: Ordered tiotropium 1.25 mcg/inh inhalation aerosol 2 puffs = 2.5 mcg, Inhalation, Daily, # 1 each, 6 Refills, Maintenance, 07/31/23 12:33:00 EST, Aerosol, [facility] [address] ([facility]), Partial fill upon patient request if the prescription is for a schedule II opioid drug., 175, cm, 07/26/23 8:30:0... Start Date: 07/31/23 Status: Ordered Tums 500 mg oral tablet, chewable 500 mg, 1, tablet, Chew, Every 4 hours, PRN, # 60 tablet, Refills 0, Tot. Refills 0, Maintenance, Dyspepsia, 07/26/23 10:47:00 EST, Route to Pharmacy Electronically, [facility] [id number] ([facility]),Partial fill upon patient request if the prescripti... Start Date: 07/26/23 Status: Ordered Tylenol 8 Hour 650 mg oral tablet, extended release 2 tablet = 1,300 mg, By Mouth, Every 8 hours, # 180 tablet, 1 Refills, Maintenance, 07/11/23 15:44:00 EST, ER Tablet, [facility], Partial fill upon patient request if the prescription is for a schedule II opioid drug., 178, cm, 07/11/23 13:5... Start Date: 07/11/23 Status: Ordered Vitamin D3 1000 intl units oral capsule 1 capsule = 25 mcg, By Mouth, Daily, # 30 capsule, 0 Refills, Maintenance, 07/26/23 10:51:00 EST, Capsule, [facility] [id number] ([facility]), Partial fill upon patient request if the prescription is for a schedule II opioid drug., 175, cm, 07/26/23 8:3... Start Date: 07/26/23 Status: Ordered Problem List Condition Confirmation Course Effective Dates Status H ealth Status Informant Acute bronchitis Confirmed Active Osteoarthritis of knees, bilateral Confirmed Active Bipolar disorder, mixed Confirmed Active PTSD (post-traumatic stress disorder) Confirmed Active Cigarette smoker Confirmed Active Cluster B personality disorder Confirmed Active Hospitalization within last 30 days Confirmed Active HTN (hypertension) Confirmed Active Asthma Confirmed Active Morbid obesity Confirmed Active Fibrodysplasia ossificans congenita Confirmed Active Herniated lumbar intervertebral disc Confirmed Active Homeless Confirmed Active Severe obesity Confirmed Active Tendinitis of left rotator cuff Confirmed Active Social History Social History Type Response Smoking Status 10 or more cigarette s (1/2 pack or more)/day in last 30 days; Interested in cessation: Yes; Patient wants NRT during admission Yes; Other: 2 PPD currently; entered on: 07/15/23 Sex Patient Care team information Care Team Personnel Name: Shane Christie RN Position: S RN Member Role: Primary Care Nurse Name: Mahendra Maria Position: S RN Member Role: Primary Care Nurse Name: Danika Connor RN Position: S RN Member Role: Primary Care Nurse Name: Jeni Solorio RN Position: S RN Member Role: Primary Care Nurse Name: Rebekah Delatorre RN Position: [facility] RN Member Role: Primary Care Nurse Name: Polly Vuong MD, V Position: [facility] Physician - Primary Care Member Role: PCP Address: Address: [address] [place] [id number]- [place] Name: Scooter Locke RN Position: [facility] RN Member Role: Primary Care Nurse Name: Sandi Hightower RN Position: [facility] RN Member Role: Primary Care Nurse Name: Angelita Almeida RN Position: [facility] RN Member Role: Primary Care Nurse Name: Citlali Reilly Position: [facility] RN Member Role: Primary Care Nurse Name: Tiny Pettit RN Position: [facility] RN Member Role: Primary Care Nurse Name: Marcelino Fermin RN Position: [facility] RN Member Role: Primary Care Nurse Name: Brenda Toscano NP Position: Reference Physician Member Role: Primary Care Nurse Address: Address: [address] [place] [address] [place] Care Team Related Persons Name: KEY DEWEY Address: [place] [address] Name: AIDA DEWEY Address: home [address] [place] [id number] Name: NO, ONE
--- OUTSIDE RECORDS SUMMARY | 2023-09-19 10:27 | XMS_ITS | Continuity of Care Document ---
Author Name Unknown Organization [facility] Address [address] [place] [address]- Care Team Providers Care Polysomnographic Technologist Name Role Phone Yevgeniy ÁLVAREZ, Polly Kapoor Primary Care Physician Encounter [facility] Date(s): 08/08/23 - 09/07/23 [facility] [address] [place], [place] [address] Allergies, Adverse Reactions, Alerts Substance Reaction Severity Status codeine Active aspirin Active TraMADol Hydrochloride Activ e PROzac Active Haldol Active NSAIDs Active Immunizations Given and Recorded Vaccine Date Status Refusal Reason influenza virus vaccine, inactivated 07/17/23 Give n [id number] bivalent booster vax 06/21/22 Recorded tetanus/diphtheria/pertussis, acel(Tdap) 1 05/14/21 Given SARS-CoV-2 (COVID-19) Ad26 vaccine 2 02/15/21 Give n Influenza Virus Vaccine (oldterm) 06/11/20 Recorde d 1Result Comment: [facility] [id number] 2Result Comment: [facility] [id number] Medications albuterol CFC free 90 mcg/inh inhalation aerosol 180 mcg, 2, puffs, Inhalation, Every 6 hours, PRN, # 8 Gm, Refills 6, Tot. Refills 6, Maintenance, 07/31/23 12:32:00 EST, Inhaler, Route to Pharmacy Electronically, [id number], [facility] 175, cm, 07/26... Start Date: 07/31/23 Status: Ordered amLODIPine 10 mg oral tablet 1 tablet = 10 mg, By Mouth, Daily, # 90 tablet, 0 Refills, Maintenance, 07/26/23 10:51:00 EST, Tablet, [facility] ([facility]), Partial fill upon patient request if [...] Refills, Maintenance, 07/26/23 10:51:00 EST, Tablet, [facility] ([facility]), Partial fill upon patient request if the prescription is for a schedule II opioid drug., 175, cm, 07/26... Start Date: 07/26/23 Status: Ordered cloNIDine 0.1 mg oral tablet 0.1 mg, By Mouth, 3 times a day, PRN, # 90 tablet, Refills 0, Tot. Refills 0, Maintenance, Anxiety,07/26/23 10:51:00 EST, Route to Pharmacy Electronically, [facility] ([facility]), Partial fill upon patient request if the prescription is for... Start Date: 07/26/23 Status: Ordered cyanocobalamin 1000 mcg oral tablet, extended release 1 tablet = 1,000 mcg, By Mouth, Daily, # 90 tablet, 3 Refills, Maintenance, 08/11/23 12:10:00 EST, ER Tablet, [facility] ([facility]), Partial fill upon patient request if the prescription is for a schedule II opioid drug., 175, cm, 07/26/23... Start Date: 08/11/23 Status: Ordered cyclobenzaprine 10 mg oral tablet 10 mg, By Mouth, 3 times a day, PRN, # 24 each, Refills 1, Tot. Refills 1, Maintenance, Pain , Moderate, 08/11/23 16:09:00 EST, Route to Pharmacy Electronically, [facility] ([facility]), Partial fill upon patient request if the prescription i... Start Date: 08/11/23 Status: Ordered diclofenac 1% topical gel = 4 Gm, Topically, 4 times a day, to each knee. not to exceed 16 grams/day/single joint of lower extremities, # 480 Gm, 0 Refills, Maintenance, 07/26/23 10:51:00 EST, Gel, [facility] ([id number]), Partial fill upon patient request if the pr... Start Date: 07/26/23 Status: Ordered diclofenac 1% topical gel = 2 Gm, Topically, 4 times a day, to L shoulder not to exceed 8 grams/day/single joint of upper extremities, # 240 Gm, 0 Refills, Maintenance, 07/26/23 10:51:00 EST, Gel, [facility] ([facility]), Partial fill upon patient request if the pre... Start Date: 07/26/23 Status: Ordered Diflucan 150 mg oral tablet See Instructions, 1 tablet By Mouth Once, repeat in 72 hours if no resolution of discharge., # 2 tablet, 0 Refills, Maintenance, 08/31/23 17:20:00 EST, Tablet, [facility]/pharmacy #[id number], Partial fill upon patient request if the prescription is for a schedule... Start Date: 08/31/23 Status: Ordered divalproex sodium 250 mg oral tablet, extended release = 750 mg, By Mouth, Daily, # 90 tablet, 0 Refills, Maintenance, 07/26/23 10:51:00 EST, ER Tablet, [facility] ([facility]), Partial fill upon patient request if the prescription is for a schedule II opioid drug., 175, cm, 07/26/23 8:30:00 EST,... Start Date: 07/26/23 Status: Ordered fluticasone-vilanterol 100 mcg-25 mcg/inh inhalation powder 1 puffs, Inhalation, Daily, Rinse mouth after each use, # 1 each, 6 Refills, Maintenance, 07/31/23 12:33:00 EST, Inhaler, [facility] ([facility]), Partial fill upon patient request if the prescription is for a schedule II opioid drug., 1 puff... Start Date: 07/31/23 Status: Ordered gabapentin 400 mg oral capsule 400 mg, By Mouth, 3 times a day, # 90 capsule, Refills 0, Tot. Refills 0, Maintenance, 07/26/23 10:51:00 EST, Route to Pharmacy Electronically, [facility] [id number] ([facility] [address]), Partial fill upon patient request if the prescription is for a schedule I... Start Date: 07/26/23 Stop Date: 08/25/23 Status: Ordered hydrOXYzine pamoate 50 mg oral capsule = 50 mg, By Mouth, 3 times a day, PRN Anxiety, # 90 capsule, 0 Refills, Maintenance, 07/26/23 10:49:00 EST, Capsule, [facility] [address] ([facility] [address]), Partial fill upon patient request if the prescription is for a schedule II opioid drug., 175, cm, 11... Start Date: 07/26/23 Status: Ordered lidocaine 5% topical film 1 patch, Topically, Daily, PRN Pain , Mild, # 30 patch, 0 Refills, Maintenance, 07/26/23 10:44:00 EST, Patch, [facility] [address] ([facility] [address]), Partial fill upon patient request if the prescription is for a schedule II opioid drug., 1 patch Topically... Start Date: 07/26/23 Status: Ordered loratadine 10 mg oral tablet 10 mg, By Mouth, Daily, # 30 tablet, Refills 0, Tot. Refills 0, Maintenance, 07/26/23 10:45:00 EST,Route to Pharmacy Electronically, [facility] [address] ([facility] [address]), Partial fill upon patient request if the prescription is for a schedule II opioid d... Start Date: 07/26/23 Status: Ordered montelukast 10 mg oral tablet 10 mg, 1, tablet, By Mouth, Daily, # 30 tablet, Refills 0, Tot. Refills 0, Maintenance, 07/26/23 10:51:00 EST, Route to Pharmacy Electronically, [facility] [address] ([facility]), Partial fill upon patient request if the prescription is for a schedule... Start Date: 07/26/23 Stop Date: 08/25/23 Status: Ordered nicotine 21 mg/24 hr transdermal film, extended release 1 patch, Topically, Daily, # 30 patch, 0 Refills, Maintenance, 07/26/23 10:45:00 EST, Patch, [facility] [address] ([facility] [address]), Partial fill upon patient request if the prescription is for a schedule II opioid drug., 1 patch Topically Daily, 175, cm, 1... Start Date: 07/26/23 Status: Ordered omeprazole 40 mg oral enteric coated capsule 1 capsule = 40 mg, By Mouth, Daily, # 30 capsule, 1 Refills, Maintenance, 07/26/23 10:51:00 EST, ECCapsule, [facility] ([facility]), Partial fill upon patient request if the prescription isfor a schedule II opioid drug., 175, cm, 07/26/23 8... Start Date: 07/26/23 Status: Ordered oxyCODONE 5 mg oral tablet 5 mg, By Mouth, Every 6 hours, PRN, # 16 tablet, Refills 0, Tot. Refills 0, Maintenance, Pain , Severe, 07/26/23 10:50:00 EST, Route to Pharmacy Electronically, [facility] ([facility]), Partial fill upon patient request if the prescription is... Start Date: 07/26/23 Status: Ordered prazosin 1 mg oral capsule 2 mg, By Mouth, Daily at bedtime, # 30 capsule, Refills 0, Tot. Refills 0, Maintenance, 09/03/23 13:10:00 EST, Route to Pharmacy Electronically, [facility]/pharmacy #[id number], Partial fill upon patient request if the prescription is for a schedule II opioid drug... Start Date: 09/03/23 Status: Ordered predniSONE 10 mg oral tablet = 30 mg, By Mouth, Every 24 hours, # 3 tablet, 0 Refills, Maintenance, 07/31/23 7:00:00 EST, Tablet, [facility] ([facility]), Partial fill upon patient request if the prescription is for a schedule II opioid drug., 175, cm, 07/26/23 8:30:00 E... Start Date: 07/31/23 Stop Date: 08/03/23 Status: Ordered predniSONE 10 mg oral tablet = 10 mg, By Mouth, Every 24 hours, # 3 tablet, 0 Refills, Maintenance, 08/06/23 7:00:00 EST, Tablet, [facility] ([facility]), Partial fill upon patient request if the prescription is for a schedule II opioid drug., 175, cm, 07/26/23 8:30:00 E... Start Date: 08/06/23 Stop Date: 08/09/23 Status: Ordered predniSONE 50 mg oral tablet = 50 mg, By Mouth, Once, # 1 each, 0 Refills, Soft Stop, 07/27/23 7:00:00 EST, Tablet, [facility] ([facility]), Partial fill upon patient request if the prescription is for a schedule II opioid drug., 175, cm, 07/26/23 8:30:00 EST, Height, 14... Start Date: 07/27/23 Status: Ordered QUEtiapine 100 mg oral tablet 100 mg, By Mouth, 2 times a day, PRN, # 60 tablet, Refills 0, Tot. Refills 0, Maintenance, Anxiety,09/03/23 13:10:00 EST, Route to Pharmacy Electronically, [facility]/pharmacy #[id number], Partial fill upon patient request if the prescription is for a schedule II... Start Date: 09/03/23 Status: Ordered QUEtiapine 400 mg oral tablet 1 tablet = 400 mg, By Mouth, Daily at bedtime, # 30 tablet, 0 Refills, Maintenance, 07/26/23 10:51:00 EST, Tablet, [facility] ([facility]), Partial fill upon patient request if the prescription is for a schedule II opioid drug., 175, cm, 06/29... Start Date: 07/26/23 Status: Ordered tiotropium 1.25 mcg/inh inhalation aerosol 2 puffs = 2.5 mcg, Inhalation, Daily, # 1 each, 6 Refills, Maintenance, 07/31/23 12:33:00 EST, Aerosol, [facility] ([facility]), Partial fill upon patient request if the prescription is for a schedule II opioid drug., 175, cm, 07/26/23 8:30:0... Start Date: 07/31/23 Status: Ordered Tums 500 mg oral tablet, chewable 500 mg, 1, tablet, Chew, Every 4 hours, PRN, # 60 tablet, Refills 0, Tot. Refills 0, Maintenance, Dyspepsia, 07/26/23 10:47:00 EST, Route to Pharmacy Electronically, [facility] [address] ([facility] [address]),Partial fill upon patient request if the prescripti... Start Date: 07/26/23 Status: Ordered Tylenol 8 Hour 650 mg oral tablet, extended release 2 tablet = 1,300 mg, By Mouth, Every 8 hours, # 180 tablet, 1 Refills, Maintenance, 07/11/23 15:44:00 EST, ER Tablet, [facility], Partial fill upon patient request if the prescription is for a schedule II opioid drug., 178, cm, 07/11/23 13:5... Start Date: 07/11/23 Status: Ordered Vitamin D3 1000 intl units oral capsule 1 capsule = 25 mcg, By Mouth, Daily, # 30 capsule, 0 Refills, Maintenance, 07/26/23 10:51:00 EST, Capsule, [facility] ([facility]), Partial fill upon patient request if [...] Care team information Care Team Personnel Name: Shahnaz ZAPIENShane Position: [facility] RN Member Role: Primary Care Nurse Name: Mahendra Maria Position: S RN Member Role: Primary Care Nurse Name: Danika Connor RN Position: [facility] RN Member Role: Primary Care Nurse Name: Jeni Solorio RN Position: S RN Member Role: Primary Care Nurse Name: Rebekah Delatorre RN Position: [facility] RN Member Role: Primary Care Nurse Name: Polly Vuong MD, V Position: [facility] Physician - Primary Care Member Role: PCP Address: Address: [address] [place] [id number]- [place] Name: Scooter Locke RN Position: [facility] [...] Member Role: Primary Care Nurse Address: Address: [address] [place] [address]- Care Team Related Persons Name: KEY DEWEY Address: [place] [address] Name: AIDA DEWEY Address: home [address] [place] [address] Name: NO, ONE
--- OUTSIDE RECORDS SUMMARY | 2023-09-19 10:27 | XMS_ITS | Continuity of Care Document ---
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 Police Officer Name Role Phone Yevgeniy ÁLVAREZ, Polly Kapoor Primary Care Physician [phone] Encounter [facility] Date(s): 07/28/23 - 08/27/23 [facility] [address] [place], [place] [address] Allergies, Adverse Reactions, Alerts Substance Reaction Severity Status codeine Active aspirin Active Haldol Active NSAIDs Active PROzac Active TraMADol Hydrochloride Activ e Immunizations Given and Recorded Vaccine Date Status Refusal Reason influenza virus vaccine, inactivated 07/17/23 Give n [id number] bivalent booster vax 06/21/22 Recorded tetanus/diphtheria/pertussis, acel(Tdap) 1 05/14/21 Given SARS-CoV-2 (COVID-19) Ad26 vaccine 2 02/15/21 Give n Influenza Virus Vaccine (oldterm) 06/11/20 Recorde d 1Result Comment: [facility] [id number] 2Result Comment: [facility] [id number] Medications albuterol CFC free 90 mcg/inh inhalation aerosol 180 mcg, 2, puffs, Inhalation, Every 6 hours, PRN, # 8 Gm, Refills 6, Tot. Refills 6, Maintenance, 07/31/23 12:32:00 EST, Inhaler, Route to Pharmacy Electronically, [id number], [facility] [address] ([facility]), 175, cm, 07/26... Start Date: 07/31/23 Status: Ordered amLODIPine 10 mg oral tablet 1 tablet = 10 mg, By Mouth, Daily, # 90 tablet, 0 Refills, Maintenance, 07/26/23 10:51:00 EST, Tablet, [facility] ([facility]), Partial fill upon patient request if [...] Refills, Maintenance, 07/26/23 10:51:00 EST, Tablet, [facility] [address] ([facility]), Partial fill upon patient request if the prescription is for a schedule II opioid drug., 175, cm, 07/26... Start Date: 07/26/23 Status: Ordered cloNIDine 0.1 mg oral tablet 0.1 mg, By Mouth, 3 times a day, PRN, # 90 tablet, Refills 0, Tot. Refills 0, Maintenance, Anxiety,07/26/23 10:51:00 EST, Route to Pharmacy Electronically, [facility] ([facility]), Partial fill upon patient request if the prescription is for... Start Date: 07/26/23 Status: Ordered cyanocobalamin 1000 mcg oral tablet, extended release 1 tablet = 1,000 mcg, By Mouth, Daily, # 90 tablet, 3 Refills, Maintenance, 08/11/23 12:10:00 EST, ER Tablet, [facility] ([facility]), Partial fill upon patient request if the prescription is for a schedule II opioid drug., 175, cm, 07/26/23... Start Date: 08/11/23 Status: Ordered cyclobenzaprine 10 mg oral tablet 10 mg, By Mouth, 3 times a day, PRN, # 24 each, Refills 1, Tot. Refills 1, Maintenance, Pain , Moderate, 08/11/23 16:09:00 EST, Route to Pharmacy Electronically, [facility] ([facility]), Partial fill upon patient request if the prescription i... Start Date: 08/11/23 Status: Ordered diclofenac 1% topical gel = 4 Gm, Topically, 4 times a day, to each knee. not to exceed 16 grams/day/single joint of lower extremities, # 480 Gm, 0 Refills, Maintenance, 07/26/23 10:51:00 EST, Gel, [facility] ([id number]), Partial fill upon patient request if the pr... Start Date: 07/26/23 Status: Ordered diclofenac 1% topical gel = 2 Gm, Topically, 4 times a day, to L shoulder not to exceed 8 grams/day/single joint of upper extremities, # 240 Gm, 0 Refills, Maintenance, 07/26/23 10:51:00 EST, Gel, [facility] 7[facility] ([facility]), Partial fill upon patient request if the pre... Start Date: 07/26/23 Status: Ordered divalproex sodium 250 mg oral tablet, extended release = 750 mg, By Mouth, Daily, # 90 tablet, 0 Refills, Maintenance, 07/26/23 10:51:00 EST, ER Tablet, [facility] ([facility]), Partial fill upon patient request if the prescription is for a schedule II opioid drug., 175, cm, 07/26/23 8:30:00 EST,... Start Date: 07/26/23 Status: Ordered fluticasone-vilanterol 100 mcg-25 mcg/inh inhalation powder 1 puffs, Inhalation, Daily, Rinse mouth after each use, # 1 each, 6 Refills, Maintenance, 07/31/23 12:33:00 EST, Inhaler, [facility] ([facility]), Partial fill upon patient request if the prescription is for a schedule II opioid drug., 1 puff... Start Date: 07/31/23 Status: Ordered gabapentin 400 mg oral capsule 400 mg, By Mouth, 3 times a day, # 90 capsule, Refills 0, Tot. Refills 0, Maintenance, 07/26/23 10:51:00 EST, Route to Pharmacy Electronically, [facility] [address] ([facility]), Partial fill upon patient request if the prescription is for a schedule I... Start Date: 07/26/23 Stop Date: 08/25/23 Status: Ordered hydrOXYzine pamoate 50 mg oral capsule = 50 mg, By Mouth, 3 times a day, PRN Anxiety, # 90 capsule, 0 Refills, Maintenance, 07/26/23 10:49:00 EST, Capsule, [facility] [address] ([facility]), Partial fill upon patient request if the prescription is for a schedule II opioid drug., 175, cm, 11... Start Date: 07/26/23 Status: Ordered lidocaine 5% topical film 1 patch, Topically, Daily, PRN Pain , Mild, # 30 patch, 0 Refills, Maintenance, 07/26/23 10:44:00 EST, Patch, [facility] [address] ([facility]), Partial fill upon patient request if the prescription is for a schedule II opioid drug., 1 patch Topically... Start Date: 07/26/23 Status: Ordered loratadine 10 mg oral tablet 10 mg, By Mouth, Daily, # 30 tablet, Refills 0, Tot. Refills 0, Maintenance, 07/26/23 10:45:00 EST,Route to Pharmacy Electronically, [facility] [address] ([facility]), Partial fill upon patient request if the prescription is for a schedule II opioid d... Start Date: 07/26/23 Status: Ordered montelukast 10 mg oral tablet 10 mg, 1, tablet, By Mouth, Daily, # 30 tablet, Refills 0, Tot. Refills 0, Maintenance, 07/26/23 10:51:00 EST, Route to Pharmacy Electronically, [facility] [address] ([facility]), Partial fill upon patient request if the prescription is for a schedule... Start Date: 07/26/23 Stop Date: 08/25/23 Status: Ordered nicotine 21 mg/24 hr transdermal film, extended release 1 patch, Topically, Daily, # 30 patch, 0 Refills, Maintenance, 07/26/23 10:45:00 EST, Patch, [facility] [address] ([facility]), Partial fill upon patient request if the prescription is for a schedule II opioid drug., 1 patch Topically Daily, 175, cm, 1... Start Date: 07/26/23 Status: Ordered omeprazole 40 mg oral enteric coated capsule 1 capsule = 40 mg, By Mouth, Daily, # 30 capsule, 1 Refills, Maintenance, 07/26/23 10:51:00 EST, ECCapsule, [facility] ([facility]), Partial fill upon patient request if the prescription isfor a schedule II opioid drug., 175, cm, 07/26/23 8... Start Date: 07/26/23 Status: Ordered oxyCODONE 5 mg oral tablet 5 mg, By Mouth, Every 6 hours, PRN, # 16 tablet, Refills 0, Tot. Refills 0, Maintenance, Pain , Severe, 07/26/23 10:50:00 EST, Route to Pharmacy Electronically, [facility] ([facility]), Partial fill upon patient request if the prescription is... Start Date: 07/26/23 Status: Ordered prazosin 1 mg oral capsule 2 mg, By Mouth, Daily at bedtime, # 30 capsule, Refills 0, Tot. Refills 0, Maintenance, 08/08/23 16:57:00 EST, Route to Pharmacy Electronically, [facility] ([facility]), Partial fill upon patient request if the prescription is for a schedule... Start Date: 08/08/23 Status: Ordered predniSONE 10 mg oral tablet = 30 mg, By Mouth, Every 24 hours, # 3 tablet, 0 Refills, Maintenance, 07/31/23 7:00:00 EST, Tablet, [facility] ([facility]), Partial fill upon patient request if the prescription is for a schedule II opioid drug., 175, cm, 07/26/23 8:30:00 E... Start Date: 07/31/23 Stop Date: 08/03/23 Status: Ordered predniSONE 10 mg oral tablet = 10 mg, By Mouth, Every 24 hours, # 3 tablet, 0 Refills, Maintenance, 08/06/23 7:00:00 EST, Tablet, [facility] ([facility]), Partial fill upon patient request if the prescription is for a schedule II opioid drug., 175, cm, 07/26/23 8:30:00 E... Start Date: 08/06/23 Stop Date: 08/09/23 Status: Ordered predniSONE 50 mg oral tablet = 50 mg, By Mouth, Once, # 1 each, 0 Refills, Soft Stop, 07/27/23 7:00:00 EST, Tablet, [facility] ([facility]), Partial fill upon patient request if the prescription is for a schedule II opioid drug., 175, cm, 07/26/23 8:30:00 EST, Height, 14... Start Date: 07/27/23 Status: Ordered QUEtiapine 100 mg oral tablet 100 mg, By Mouth, 2 times a day, PRN, # 60 tablet, Refills 0, Tot. Refills 0, Maintenance, Anxiety,07/26/23 10:51:00 EST, Route to Pharmacy Electronically, [facility] ([facility]), Partial fill upon patient request if the prescription is for... Start Date: 07/26/23 Status: Ordered QUEtiapine 400 mg oral tablet 1 tablet = 400 mg, By Mouth, Daily at bedtime, # 30 tablet, 0 Refills, Maintenance, 07/26/23 10:51:00 EST, Tablet, [facility] ([facility]), Partial fill upon patient request if the prescription is for a schedule II opioid drug., 175, cm, 06/29... Start Date: 07/26/23 Status: Ordered tiotropium 1.25 mcg/inh inhalation aerosol 2 puffs = 2.5 mcg, Inhalation, Daily, # 1 each, 6 Refills, Maintenance, 07/31/23 12:33:00 EST, Aerosol, [facility] ([facility]), Partial fill upon patient request if the prescription is for a schedule II opioid drug., 175, cm, 07/26/23 8:30:0... Start Date: 07/31/23 Status: Ordered Tums 500 mg oral tablet, chewable 500 mg, 1, tablet, Chew, Every 4 hours, PRN, # 60 tablet, Refills 0, Tot. Refills 0, Maintenance, Dyspepsia, 07/26/23 10:47:00 EST, Route to Pharmacy Electronically, [facility] [address] ([facility]),Partial fill upon patient request if the prescripti... Start Date: 07/26/23 Status: Ordered Tylenol 8 Hour 650 mg oral tablet, extended release 2 tablet = 1,300 mg, By Mouth, Every 8 hours, # 180 tablet, 1 Refills, Maintenance, 07/11/23 15:44:00 EST, ER Tablet, [facility], Partial fill upon patient request if the prescription is for a schedule II opioid drug., 178, cm, 07/11/23 13:5... Start Date: 07/11/23 Status: Ordered Vitamin D3 1000 intl units oral capsule 1 capsule = 25 mcg, By Mouth, Daily, # 30 capsule, 0 Refills, Maintenance, 07/26/23 10:51:00 EST, Capsule, [facility] [address] ([facility]), Partial fill upon patient request if [...] Nurse Name: Polly Vuong MD, V Position: [facility] Physician - Primary Care Member Role: PCP Address: Address: [address] [place] [address]- [place] Name: Scooter Locke RN Position: [facility] RN Member Role: Primary Care Nurse Name: Sandi Hightower RN Position: S RN Member Role: Primary Care Nurse Name: Angeilta Almeida RN Position: [facility] RN Member Role: Primary Care Nurse Name: Citlali Reilly Position: [facility] RN Member Role: Primary Care Nurse Name: Tiny Pettit RN Position: [facility] RN Member Role: Primary Care Nurse Name: Marcelino Fermin RN Position: [facility] RN Member Role: Primary Care Nurse Name: Brenda Toscano NP Position: Reference Physician Member Role: Primary Care Nurse Address: Address: [address] [place] [address]- Care Team Related Persons Name: KEY DEWEY Address: [place] [address] Name: AIDA DEWEY Address: home [address] [place] [address] Name: NO, ONE
--- OUTSIDE RECORDS SUMMARY | 2023-09-19 10:27 | XMS_ITS | Continuity of Care Document ---
Author Name Unknown Organization [facility] Address [address] [place] [address]- Care Team Providers Care Patient Care Provider Name Role Phone Yevgeniy ÁLVAREZ, Polly Kapoor Primary Care Physician Encounter [facility] [place] Date(s): 08/02/23 - 09/01/23 [facility] [address] [place], [place] [address] Allergies, Adverse Reactions, Alerts Substance Reaction Severity Status codeine Active aspirin Active Haldol Active NSAIDs Active PROzac Active TraMADol Hydrochloride Activ e Immunizations Given and Recorded Vaccine Date Status Refusal Reason influenza virus vaccine, inactivated 07/17/23 Give n [id number] bivalent booster vax 06/21/22 Recorded tetanus/diphtheria/pertussis, acel(Tdap) 1 05/14/21 Given SARS-CoV-2 (COVID-19) Ad26 vaccine 2 02/15/21 Give n Influenza Virus Vaccine (oldterm) 06/11/20 Recorde d 1Result Comment: [facility] [id number] 2Result Comment: [facility] 48987-498-01 Medications albuterol CFC free 90 mcg/inh inhalation aerosol 180 mcg, 2, puffs, Inhalation, Every 6 hours, PRN, # 8 Gm, Refills 6, Tot. Refills 6, Maintenance, 07/31/23 12:32:00 EST, Inhaler, Route to Pharmacy Electronically, [id number], [facility] [address] ([facility] 827), 175, cm, 07/26... Start Date: 07/31/23 Status: Ordered amLODIPine 10 mg oral tablet 1 tablet = 10 mg, By Mouth, Daily, # 90 tablet, 0 Refills, Maintenance, 07/26/23 10:51:00 EST, Tablet, [facility] ([facility]), Partial fill upon patient request if [...] Refills, Maintenance, 07/26/23 10:51:00 EST, Tablet, [facility] ([facility]), Partial fill upon patient request if the prescription is for a schedule II opioid drug., 175, cm, 07/26... Start Date: 07/26/23 Status: Ordered cloNIDine 0.1 mg oral tablet 0.1 mg, By Mouth, 3 times a day, PRN, # 90 tablet, Refills 0, Tot. Refills 0, Maintenance, Anxiety,07/26/23 10:51:00 EST, Route to Pharmacy Electronically, [facility] ([facility]), Partial fill upon patient request if the prescription is for... Start Date: 07/26/23 Status: Ordered cyanocobalamin 1000 mcg oral tablet, extended release 1 tablet = 1,000 mcg, By Mouth, Daily, # 90 tablet, 3 Refills, Maintenance, 08/11/23 12:10:00 EST, ER Tablet, [facility] ([facility]), Partial fill upon patient request if the prescription is for a schedule II opioid drug., 175, cm, 07/26/23... Start Date: 08/11/23 Status: Ordered cyclobenzaprine 10 mg oral tablet 10 mg, By Mouth, 3 times a day, PRN, # 24 each, Refills 1, Tot. Refills 1, Maintenance, Pain , Moderate, 08/11/23 16:09:00 EST, Route to Pharmacy Electronically, [facility] ([facility]), Partial fill upon patient request if the prescription i... Start Date: 08/11/23 Status: Ordered diclofenac 1% topical gel = 4 Gm, Topically, 4 times a day, to each knee. not to exceed 16 grams/day/single joint of lower extremities, # 480 Gm, 0 Refills, Maintenance, 07/26/23 10:51:00 EST, Gel, [facility] ([id number]), Partial fill upon patient request if the pr... Start Date: 07/26/23 Status: Ordered diclofenac 1% topical gel = 2 Gm, Topically, 4 times a day, to L shoulder not to exceed 8 grams/day/single joint of upper extremities, # 240 Gm, 0 Refills, Maintenance, 07/26/23 10:51:00 EST, Gel, [facility] ([facility]), Partial fill upon patient request if [...] Maintenance, 07/26/23 10:51:00 EST, ER Tablet, [facility] ([facility]), Partial fill upon patient request if the prescription is for a schedule II opioid drug., 175, cm, 07/26/23 8:30:00 EST,... Start Date: 07/26/23 Status: Ordered fluticasone-vilanterol 100 mcg-25 mcg/inh inhalation powder 1 puffs, Inhalation, Daily, Rinse mouth after each use, # 1 each, 6 Refills, Maintenance, 07/31/23 12:33:00 EST, Inhaler, [facility] ([facility]), Partial fill upon patient request if the prescription is for a schedule II opioid drug., 1 puff... Start Date: 07/31/23 Status: Ordered gabapentin 400 mg oral capsule 400 mg, By Mouth, 3 times a day, # 90 capsule, Refills 0, Tot. Refills 0, Maintenance, 07/26/23 10:51:00 EST, Route to Pharmacy Electronically, [facility] [address] ([employer]), Partial fill upon patient request if the prescription is for a schedule I... Start Date: 07/26/23 Stop Date: 08/25/23 Status: Ordered hydrOXYzine pamoate 50 mg oral capsule = 50 mg, By Mouth, 3 times a day, PRN Anxiety, # 90 capsule, 0 Refills, Maintenance, 07/26/23 10:49:00 EST, Capsule, [facility] [address] ([facility]), Partial fill upon patient request if the prescription is for a schedule II opioid drug., 175, cm, 11... Start Date: 07/26/23 Status: Ordered lidocaine 5% topical film 1 patch, Topically, Daily, PRN Pain , Mild, # 30 patch, 0 Refills, Maintenance, 07/26/23 10:44:00 EST, Patch, [facility] [address] ([facility]), Partial fill upon patient request if the prescription is for a schedule II opioid drug., 1 patch Topically... Start Date: 07/26/23 Status: Ordered loratadine 10 mg oral tablet 10 mg, By Mouth, Daily, # 30 tablet, Refills 0, Tot. Refills 0, Maintenance, 07/26/23 10:45:00 EST,Route to Pharmacy Electronically, [facility] [address] ([facility]), Partial fill upon patient request if the prescription is for a schedule II opioid d... Start Date: 07/26/23 Status: Ordered montelukast 10 mg oral tablet 10 mg, 1, tablet, By Mouth, Daily, # 30 tablet, Refills 0, Tot. Refills 0, Maintenance, 07/26/23 10:51:00 EST, Route to Pharmacy Electronically, [facility] [address] ([facility]), Partial fill upon patient request if the prescription is for a schedule... Start Date: 07/26/23 Stop Date: 08/25/23 Status: Ordered Mucinex 600 mg oral tablet, extended release 1 tablet = 600 mg, By Mouth, Every 12 hours, for 7 days, # 14 tablet, 0 Refills, Acute 09/07/23 17:21:00 EST, 08/31/23 17:21:00 EST, ER Tablet, [facility]/pharmacy #[id number], Partial fill upon patient request if the prescription is for a schedule II opioid drug.... Start Date: 08/31/23 Stop Date: 09/07/23 Status: Ordered nicotine 21 mg/24 hr transdermal film, extended release 1 patch, Topically, Daily, # 30 patch, 0 Refills, Maintenance, 07/26/23 10:45:00 EST, Patch, [facility] ([facility]), Partial fill upon patient request if the prescription is for a schedule II opioid drug., 1 patch Topically Daily, 175, cm, 1... Start Date: 07/26/23 Status: Ordered omeprazole 40 mg oral enteric coated capsule 1 capsule = 40 mg, By Mouth, Daily, # 30 capsule, 1 Refills, Maintenance, 07/26/23 10:51:00 EST, ECCapsule, [facility] ([facility]), Partial fill upon patient request if the prescription isfor a schedule II opioid drug., 175, cm, 07/26/23 8... Start Date: 07/26/23 Status: Ordered oxyCODONE 5 mg oral tablet 5 mg, By Mouth, Every 6 hours, PRN, # 16 tablet, Refills 0, Tot. Refills 0, Maintenance, Pain , Severe, 07/26/23 10:50:00 EST, Route to Pharmacy Electronically, [facility] ([facility]), Partial fill upon patient request if the prescription is... Start Date: 07/26/23 Status: Ordered prazosin 1 mg oral capsule 2 mg, By Mouth, Daily at bedtime, # 30 capsule, Refills 0, Tot. Refills 0, Maintenance, 08/08/23 16:57:00 EST, Route to Pharmacy Electronically, [facility] ([facility]), Partial fill upon patient request if the prescription is for a schedule... Start Date: 08/08/23 Status: Ordered predniSONE 10 mg oral tablet = 30 mg, By Mouth, Every 24 hours, # 3 tablet, 0 Refills, Maintenance, 07/31/23 7:00:00 EST, Tablet, [facility] ([facility]), Partial fill upon patient request if the prescription is for a schedule II opioid drug., 175, cm, 07/26/23 8:30:00 E... Start Date: 07/31/23 Stop Date: 08/03/23 Status: Ordered predniSONE 10 mg oral tablet = 10 mg, By Mouth, Every 24 hours, # 3 tablet, 0 Refills, Maintenance, 08/06/23 7:00:00 EST, Tablet, [facility] ([facility]), Partial fill upon patient request if the prescription is for a schedule II opioid drug., 175, cm, 07/26/23 8:30:00 E... Start Date: 08/06/23 Stop Date: 08/09/23 Status: Ordered predniSONE 50 mg oral tablet = 50 mg, By Mouth, Once, # 1 each, 0 Refills, Soft Stop, 07/27/23 7:00:00 EST, Tablet, [facility] ([facility]), Partial fill upon patient request if the prescription is for a schedule II opioid drug., 175, cm, 07/26/23 8:30:00 EST, Height, 14... Start Date: 07/27/23 Status: Ordered QUEtiapine 100 mg oral tablet 100 mg, By Mouth, 2 times a day, PRN, # 60 tablet, Refills 0, Tot. Refills 0, Maintenance, Anxiety,07/26/23 10:51:00 EST, Route to Pharmacy Electronically, [facility] ([facility]), Partial fill upon patient request if the prescription is for... Start Date: 07/26/23 Status: Ordered QUEtiapine 400 mg oral tablet 1 tablet = 400 mg, By Mouth, Daily at bedtime, # 30 tablet, 0 Refills, Maintenance, 07/26/23 10:51:00 EST, Tablet, [facility] ([facility]), Partial fill upon patient request if the prescription is for a schedule II opioid drug., 175, cher, 06/29... Start Date: 07/26/23 Status: Ordered tiotropium 1.25 mcg/inh inhalation aerosol 2 puffs = 2.5 mcg, Inhalation, Daily, # 1 each, 6 Refills, Maintenance, 07/31/23 12:33:00 EST, Aerosol, [facility] ([facility]), Partial fill upon patient request if the prescription is for a schedule II opioid drug., 175, cher, 07/26/23 8:30:0... Start Date: 07/31/23 Status: Ordered Tums 500 mg oral tablet, chewable 500 mg, 1, tablet, Chew, Every 4 hours, PRN, # 60 tablet, Refills 0, Tot. Refills 0, Maintenance, Dyspepsia, 07/26/23 10:47:00 EST, Route to Pharmacy Electronically, [facility] ([facility]),Partial fill upon patient request if the prescripti... Start Date: 07/26/23 Status: Ordered Tylenol 8 Hour 650 mg oral tablet, extended release 2 tablet = 1,300 mg, By Mouth, Every 8 hours, # 180 tablet, 1 Refills, Maintenance, 07/11/23 15:44:00 EST, ER Tablet, [facility], Partial fill upon patient request if the prescription is for a schedule II opioid drug., 178cher, 07/11/23 13:5... Start Date: 07/11/23 Status: Ordered Vitamin D3 1000 intl units oral capsule 1 capsule = 25 mcg, By Mouth, Daily, # 30 capsule, 0 Refills, Maintenance, 07/26/23 10:51:00 EST, Capsule, [facility] [address] ([facility]), Partial fill upon patient request if the prescription is for a schedule II opioid drug., cher Perez, 07/26/23 8:3... Start Date: 07/26/23 Status: Ordered [...] Care Nurse Name: Jeni Solorio RN Position: [facility] RN Member Role: Primary Care Nurse Name: Rebekah Delatorre RN Position: [facility] RN Member Role: Primary Care Nurse Name: Polly Vuong MD, V Position: S Physician - Primary Care Member Role: PCP Address: Address: [address] [place] [id number]- Name: Scooter Locke RN Position: [facility] RN Member Role: Primary Care Nurse Name: Sandi Hightower RN Position: S RN Member Role: Primary Care Nurse Name: Angelita Almeida RN Position: S RN Member Role: Primary Care Nurse Name: Citlali Reilly Position: S RN Member Role: Primary Care Nurse Name: Tiny Pettit RN Position: [facility] RN Member Role: Primary Care Nurse Name: Marcelino Fermin RN Position: S RN Member Role: Primary Care Nurse Name: Brenda Toscano NP Position: Reference Physician Member Role: Primary Care Nurse Address: Address: [address] [place] [address]- Care Team Related Persons Name: KEY DEWEY Address: [place] [address] Name: AIDA DEWEY Address: home [address] [place] [id number] Name: NO, ONE
--- OUTSIDE RECORDS SUMMARY | 2023-09-19 10:27 | XMS_ITS | Continuity of Care Document ---
Author Name Unknown Organization [facility] Address [address] [place] [address]- Care Team Providers Care Director Of Transportation Name Role Phone Yevgeniy ÁLVAREZ, Polly Kapoor Primary Care Physician [place] [facility]23 - 08/31/23 [facility] [address] [place], [place] [address] Allergies, Adverse Reactions, Alerts Substance Reaction Severity Status codeine Active aspirin Active TraMADol Hydrochloride Activ e Haldol Active NSAIDs Active PROzac Active Immunizations Given and Recorded Vaccine Date Status Refusal Reason influenza virus vaccine, inactivated 07/17/23 Give n [id number] bivalent booster vax 06/21/22 Recorded tetanus/diphtheria/pertussis, acel(Tdap) 1 05/14/21 Given SARS-CoV-2 (COVID-19) Ad26 vaccine 2 02/15/21 Give n Influenza Virus Vaccine (oldterm) 06/11/20 Recorde d 1Result Comment: [facility] 2] [id number] 2Result Comment: [facility][NOTE 2] [id number] Medications albuterol CFC free 90 mcg/inh inhalation aerosol 180 mcg, 2, puffs, Inhalation, Every 6 hours, PRN, # 8 Gm, Refills 6, Tot. Refills 6, Maintenance, 07/31/23 12:32:00 EST, Inhaler, Route to Pharmacy Electronically, [id number], [facility] [address] ([facility] 827), 175, cm, 07/26... Start Date: 07/31/23 Status: Ordered amLODIPine 10 mg oral tablet 1 tablet = 10 mg, By Mouth, Daily, # 90 tablet, 0 Refills, Maintenance, 07/26/23 10:51:00 EST, Tablet, [facility] [address] ([facility]), Partial fill upon patient request if [...] Refills, Maintenance, 07/26/23 10:51:00 EST, Tablet, [facility] ([facility]), Partial fill upon patient request if the prescription is for a schedule II opioid drug., 175, cm, 07/26... Start Date: 07/26/23 Status: Ordered cloNIDine 0.1 mg oral tablet 0.1 mg, By Mouth, 3 times a day, PRN, # 90 tablet, Refills 0, Tot. Refills 0, Maintenance, Anxiety,07/26/23 10:51:00 EST, Route to Pharmacy Electronically, [facility] ([facility]), Partial fill upon patient request if the prescription is for... Start Date: 07/26/23 Status: Ordered cyanocobalamin 1000 mcg oral tablet, extended release 1 tablet = 1,000 mcg, By Mouth, Daily, # 90 tablet, 3 Refills, Maintenance, 08/11/23 12:10:00 EST, ER Tablet, [facility] [address] ([facility]), Partial fill upon patient request if the prescription is for a schedule II opioid drug., 175, cm, 07/26/23... Start Date: 08/11/23 Status: Ordered cyclobenzaprine 10 mg oral tablet 10 mg, By Mouth, 3 times a day, PRN, # 24 each, Refills 1, Tot. Refills 1, Maintenance, Pain , Moderate, 08/11/23 16:09:00 EST, Route to Pharmacy Electronically, [facility] ([facility]), Partial fill upon patient request if the prescription i... Start Date: 08/11/23 Status: Ordered diclofenac 1% topical gel = 4 Gm, Topically, 4 times a day, to each knee. not to exceed 16 grams/day/single joint of lower extremities, # 480 Gm, 0 Refills, Maintenance, 07/26/23 10:51:00 EST, Gel, [facility] ([id number]), Partial fill upon patient request if the pr... Start Date: 07/26/23 Status: Ordered diclofenac 1% topical gel = 2 Gm, Topically, 4 times a day, to L shoulder not to exceed 8 grams/day/single joint of upper extremities, # 240 Gm, 0 Refills, Maintenance, 07/26/23 10:51:00 EST, Gel, [facility] ([facility]), Partial fill upon patient request if the pre... Start Date: 07/26/23 Status: Ordered Diflucan 150 mg oral tablet See Instructions, 1 tablet By Mouth Once, repeat in 72 hours if no resolution of discharge., # 2 tablet, 0 Refills, Maintenance, 08/31/23 17:20:00 EST, Tablet, [facility]/pharmacy #1893, Partial fill upon patient request if the prescription is for a schedule... Start Date: 08/31/23 Status: Ordered divalproex sodium 250 mg oral tablet, extended release = 750 mg, By Mouth, Daily, # 90 tablet, 0 Refills, Maintenance, 07/26/23 10:51:00 EST, ER Tablet, [facility] ([facility]), Partial fill upon patient request if the prescription is for a schedule II opioid drug., 175, cm, 07/26/23 8:30:00 EST,... Start Date: 07/26/23 Status: Ordered fluticasone-vilanterol 100 mcg-25 mcg/inh inhalation powder 1 puffs, Inhalation, Daily, Rinse mouth after each use, # 1 each, 6 Refills, Maintenance, 07/31/23 12:33:00 EST, Inhaler, [facility] ([facility]), Partial fill upon patient request if the prescription is for a schedule II opioid drug., 1 puff... Start Date: 07/31/23 Status: Ordered gabapentin 400 mg oral capsule 400 mg, By Mouth, 3 times a day, # 90 capsule, Refills 0, Tot. Refills 0, Maintenance, 07/26/23 10:51:00 EST, Route to Pharmacy Electronically, [facility] [address] ([facility]), Partial fill upon patient request if the prescription is for a schedule I... Start Date: 07/26/23 Stop Date: 08/25/23 Status: Ordered hydrOXYzine pamoate 50 mg oral capsule = 50 mg, By Mouth, 3 times a day, PRN Anxiety, # 90 capsule, 0 Refills, Maintenance, 07/26/23 10:49:00 EST, Capsule, [facility] 9[address]32 ([facility]), Partial fill upon patient request if the prescription is for a schedule II opioid drug., 175, cm, 11... Start Date: 07/26/23 Status: Ordered lidocaine 5% topical film 1 patch, Topically, Daily, PRN Pain , Mild, # 30 patch, 0 Refills, Maintenance, 07/26/23 10:44:00 EST, Patch, [facility] [address] ([facility]), Partial fill upon patient request if the prescription is for a schedule II opioid drug., 1 patch Topically... Start Date: 07/26/23 Status: Ordered loratadine 10 mg oral tablet 10 mg, By Mouth, Daily, # 30 tablet, Refills 0, Tot. Refills 0, Maintenance, 07/26/23 10:45:00 EST,Route to Pharmacy Electronically, [facility] [address] ([facility]), Partial fill upon patient request if the prescription is for a schedule II opioid d... Start Date: 07/26/23 Status: Ordered montelukast 10 mg oral tablet 10 mg, 1, tablet, By Mouth, Daily, # 30 tablet, Refills 0, Tot. Refills 0, Maintenance, 07/26/23 10:51:00 EST, Route to Pharmacy Electronically, [facility] [address] ([facility]), Partial fill upon patient request if the prescription is for a schedule... Start Date: 07/26/23 Stop Date: 08/25/23 Status: Ordered Mucinex 600 mg oral tablet, extended release 1 tablet = 600 mg, By Mouth, Every 12 hours, for 7 days, # 14 tablet, 0 Refills, Acute 09/07/23 17:21:00 EST, 08/31/23 17:21:00 EST, ER Tablet, [facility]/pharmacy #1893, Partial fill upon patient request if the prescription is for a schedule II opioid drug.... Start Date: 08/31/23 Stop Date: 09/07/23 Status: Ordered nicotine 21 mg/24 hr transdermal film, extended release 1 patch, Topically, Daily, # 30 patch, 0 Refills, Maintenance, 07/26/23 10:45:00 EST, Patch, [facility] ([facility]27), Partial fill upon patient request if the prescription is for a schedule II opioid drug., 1 patch Topically Daily, 175, cm, 1... Start Date: 07/26/23 Status: Ordered omeprazole 40 mg oral enteric coated capsule 1 capsule = 40 mg, By Mouth, Daily, # 30 capsule, 1 Refills, Maintenance, 07/26/23 10:51:00 EST, ECCapsule, [facility] ([facility]), Partial fill upon patient request if the prescription isfor a schedule II opioid drug., 175, cm, 07/26/23 8... Start Date: 07/26/23 Status: Ordered oxyCODONE 5 mg oral tablet 5 mg, By Mouth, Every 6 hours, PRN, # 16 tablet, Refills 0, Tot. Refills 0, Maintenance, Pain , Severe, 07/26/23 10:50:00 EST, Route to Pharmacy Electronically, [facility] ([facility]), Partial fill upon patient request if the prescription is... Start Date: 07/26/23 Status: Ordered prazosin 1 mg oral capsule 2 mg, By Mouth, Daily at bedtime, # 30 capsule, Refills 0, Tot. Refills 0, Maintenance, 08/08/23 16:57:00 EST, Route to Pharmacy Electronically, [facility] ([facility]), Partial fill upon patient request if the prescription is for a schedule... Start Date: 08/08/23 Status: Ordered predniSONE 10 mg oral tablet = 30 mg, By Mouth, Every 24 hours, # 3 tablet, 0 Refills, Maintenance, 07/31/23 7:00:00 EST, Tablet, [facility] ([facility]), Partial fill upon patient request if the prescription is for a schedule II opioid drug., 175, cm, 07/26/23 8:30:00 E... Start Date: 07/31/23 Stop Date: 08/03/23 Status: Ordered predniSONE 10 mg oral tablet = 10 mg, By Mouth, Every 24 hours, # 3 tablet, 0 Refills, Maintenance, 08/06/23 7:00:00 EST, Tablet, [facility] ([facility]), Partial fill upon patient request if the prescription is for a schedule II opioid drug., 175, cm, 07/26/23 8:30:00 E... Start Date: 08/06/23 Stop Date: 08/09/23 Status: Ordered predniSONE 50 mg oral tablet = 50 mg, By Mouth, Once, # 1 each, 0 Refills, Soft Stop, 07/27/23 7:00:00 EST, Tablet, [facility] ([facility]), Partial fill upon patient request if the prescription is for a schedule II opioid drug., 175, cm, 07/26/23 8:30:00 EST, Height, 14... Start Date: 07/27/23 Status: Ordered QUEtiapine 100 mg oral tablet 100 mg, By Mouth, 2 times a day, PRN, # 60 tablet, Refills 0, Tot. Refills 0, Maintenance, Anxiety,07/26/23 10:51:00 EST, Route to Pharmacy Electronically, [facility] ([facility]), Partial fill upon patient request if the prescription is for... Start Date: 07/26/23 Status: Ordered QUEtiapine 400 mg oral tablet 1 tablet = 400 mg, By Mouth, Daily at bedtime, # 30 tablet, 0 Refills, Maintenance, 07/26/23 10:51:00 EST, Tablet, [facility] ([facility]), Partial fill upon patient request if the prescription is for a schedule II opioid drug., 175, cher, 06/29... Start Date: 07/26/23 Status: Ordered tiotropium 1.25 mcg/inh inhalation aerosol 2 puffs = 2.5 mcg, Inhalation, Daily, # 1 each, 6 Refills, Maintenance, 07/31/23 12:33:00 EST, Aerosol, [facility] ([facility]), Partial fill upon patient request if the prescription is for a schedule II opioid drug., 175, cher, 07/26/23 8:30:0... Start Date: 07/31/23 Status: Ordered Tums 500 mg oral tablet, chewable 500 mg, 1, tablet, Chew, Every 4 hours, PRN, # 60 tablet, Refills 0, Tot. Refills 0, Maintenance, Dyspepsia, 07/26/23 10:47:00 EST, Route to Pharmacy Electronically, [facility] ([facility]),Partial fill upon patient request if the prescripti... Start Date: 07/26/23 Status: Ordered Tylenol 8 Hour 650 mg oral tablet, extended release 2 tablet = 1,300 mg, By Mouth, Every 8 hours, # 180 tablet, 1 Refills, Maintenance, 07/11/23 15:44:00 EST, ER Tablet, [facility], Partial fill upon patient request if the prescription is for a schedule II opioid drug., 178cher, 07/11/23 13:5... Start Date: 07/11/23 Status: Ordered Vitamin D3 1000 intl units oral capsule 1 capsule = 25 mcg, By Mouth, Daily, # 30 capsule, 0 Refills, Maintenance, 07/26/23 10:51:00 EST, Capsule, [facility] [address] ([facility]27), Partial fill upon patient request if [...] Care Nurse Name: Jeni Solorio RN Position: [facility] RN Member Role: Primary Care Nurse Name: Rebekah Delatorre RN Position: [facility] RN Member Role: Primary Care Nurse Name: Polly Vuong MD, V Position: S Physician - Primary Care Member Role: PCP Address: Address: [address] [place] [id number]- Name: Scooter Locke RN Position: [facility] RN Member Role: Primary Care Nurse Name: Sandi Hightower RN Position: S RN Member Role: Primary Care Nurse Name: Angelita Almeida RN Position: S RN Member Role: Primary Care Nurse Name: Citlali Reilly Position: S RN Member Role: Primary Care Nurse Name: Tiny Pettit RN Position: [facility] RN Member Role: Primary Care Nurse Name: Marcelino Fermin RN Position: S RN Member Role: Primary Care Nurse Name: Brenda Toscano NP Position: Reference Physician Member Role: Primary Care Nurse Address: Address: [address] [place] [id number]- Care Team Related Persons Name: KEY DEWEY Address: [place] [address] Name: AIDA DEWEY Address: home [address] [place] [address] Name: NO, ONE
--- OUTSIDE RECORDS SUMMARY | 2023-09-19 10:28 | XMS_ITS | Continuity of Care Document ---
Author Name Unknown Organization [facility] Address [address] [place] [address]- Care Team Providers Care Road Gang Supervisor Name Role Phone Yevgeniy ÁLVAREZ, Polly Kapoor Primary Care Physician Encounter [facility] Date(s): 07/12/23 - 08/11/23 [facility] [address] [place], [place] [address] Allergies, Adverse Reactions, Alerts Substance Reaction Severity Status codeine Active aspirin Active Haldol Active NSAIDs Active PROzac Active TraMADol Hydrochloride Activ e Immunizations Given and Recorded Vaccine Date Status Refusal Reason influenza virus vaccine, inactivated 07/17/23 Give n [id number] bivalent booster vax 06/21/22 Recorded tetanus/diphtheria/pertussis, acel(Tdap) 1 05/14/21 Given SARS-CoV-2 (COVID-19) Ad26 vaccine 2 02/15/21 Give n Influenza Virus Vaccine (oldterm) 06/11/20 Recorde d 1Result Comment: [facility] [id number] 2Result Comment: [facility] [id number] Medications albuterol CFC free 90 mcg/inh inhalation aerosol 180 mcg, 2, puffs, Inhalation, Every 6 hours, PRN, # 8 Gm, Refills 6, Tot. Refills 6, Maintenance, 07/31/23 12:32:00 EST, Inhaler, Route to Pharmacy Electronically, [id number], [facility] [address] ([facility]), 175, cm, 07/26... Start Date: 07/31/23 Status: Ordered amLODIPine 10 mg oral tablet 1 tablet = 10 mg, By Mouth, Daily, # 90 tablet, 0 Refills, Maintenance, 07/26/23 10:51:00 EST, Tablet, [facility] ([facility]), Partial fill upon patient request if [...] Refills, Maintenance, 07/26/23 10:51:00 EST, Tablet, [facility] ([facility]), Partial fill upon patient request if the prescription is for a schedule II opioid drug., 175, cm, 07/26... Start Date: 07/26/23 Status: Ordered cloNIDine 0.1 mg oral tablet 0.1 mg, By Mouth, 3 times a day, PRN, # 90 tablet, Refills 0, Tot. Refills 0, Maintenance, Anxiety,07/26/23 10:51:00 EST, Route to Pharmacy Electronically, [facility] ([facility]), Partial fill upon patient request if the prescription is for... Start Date: 07/26/23 Status: Ordered cyanocobalamin 1000 mcg oral tablet, extended release 1 tablet = 1,000 mcg, By Mouth, Daily, # 90 tablet, 3 Refills, Maintenance, 08/11/23 12:10:00 EST, ER Tablet, [facility] ([facility]), Partial fill upon patient request if the prescription is for a schedule II opioid drug., 175, cm, 07/26/23... Start Date: 08/11/23 Status: Ordered cyclobenzaprine 10 mg oral tablet 10 mg, By Mouth, 3 times a day, PRN, # 24 each, Refills 1, Tot. Refills 1, Maintenance, Pain , Moderate, 08/11/23 16:09:00 EST, Route to Pharmacy Electronically, [facility] ([facility]), Partial fill upon patient request if the prescription i... Start Date: 08/11/23 Status: Ordered diclofenac 1% topical gel = 4 Gm, Topically, 4 times a day, to each knee. not to exceed 16 grams/day/single joint of lower extremities, # 480 Gm, 0 Refills, Maintenance, 07/26/23 10:51:00 EST, Gel, [facility] [address] ([email or web address]), Partial fill upon patient request if the pr... Start Date: 07/26/23 Status: Ordered diclofenac 1% topical gel = 2 Gm, Topically, 4 times a day, to L shoulder not to exceed 8 grams/day/single joint of upper extremities, # 240 Gm, 0 Refills, Maintenance, 07/26/23 10:51:00 EST, Gel, [facility] [address] ([facility]), Partial fill upon patient request if the pre... Start Date: 07/26/23 Status: Ordered divalproex sodium 250 mg oral tablet, extended release = 750 mg, By Mouth, Daily, # 90 tablet, 0 Refills, Maintenance, 07/26/23 10:51:00 EST, ER Tablet, [facility] ([facility]), Partial fill upon patient request if the prescription is for a schedule II opioid drug., 175, cm, 07/26/23 8:30:00 EST,... Start Date: 07/26/23 Status: Ordered fluticasone-vilanterol 100 mcg-25 mcg/inh inhalation powder 1 puffs, Inhalation, Daily, Rinse mouth after each use, # 1 each, 6 Refills, Maintenance, 07/31/23 12:33:00 EST, Inhaler, [facility] ([facility]), Partial fill upon patient request if the prescription is for a schedule II opioid drug., 1 puff... Start Date: 07/31/23 Status: Ordered gabapentin 400 mg oral capsule 400 mg, By Mouth, 3 times a day, # 90 capsule, Refills 0, Tot. Refills 0, Maintenance, 07/26/23 10:51:00 EST, Route to Pharmacy Electronically, [facility] [address] ([facility]), Partial fill upon patient request if the prescription is for a schedule I... Start Date: 07/26/23 Stop Date: 08/25/23 Status: Ordered hydrOXYzine pamoate 50 mg oral capsule = 50 mg, By Mouth, 3 times a day, PRN Anxiety, # 90 capsule, 0 Refills, Maintenance, 07/26/23 10:49:00 EST, Capsule, [facility] [address] ([facility]), Partial fill upon patient request if the prescription is for a schedule II opioid drug., 175, cm, 11... Start Date: 07/26/23 Status: Ordered lidocaine 5% topical film 1 patch, Topically, Daily, PRN Pain , Mild, # 30 patch, 0 Refills, Maintenance, 07/26/23 10:44:00 EST, Patch, [facility] [address] ([facility]), Partial fill upon patient request if the prescription is for a schedule II opioid drug., 1 patch Topically... Start Date: 07/26/23 Status: Ordered loratadine 10 mg oral tablet 10 mg, By Mouth, Daily, # 30 tablet, Refills 0, Tot. Refills 0, Maintenance, 07/26/23 10:45:00 EST,Route to Pharmacy Electronically, [facility] [address] ([facility]), Partial fill upon patient request if the prescription is for a schedule II opioid d... Start Date: 07/26/23 Status: Ordered melatonin 3 mg oral tablet = 3 mg, By Mouth, Daily at bedtime, PRN Sleep, for 30 days, Can repeate 1x, # 30 tablet, 0 Refills,Acute 08/25/23 10:50:00 EST, 07/26/23 10:50:00 EST, Tablet, [facility] [address] ([facility]), Partial fill upon patient request if the prescription is... Start Date: 07/26/23 Stop Date: 08/25/23 Status: Ordered montelukast 10 mg oral tablet 10 mg, 1, tablet, By Mouth, Daily, # 30 tablet, Refills 0, Tot. Refills 0, Maintenance, 07/26/23 10:51:00 EST, Route to Pharmacy Electronically, [facility] [address] ([facility]), Partial fill upon patient request if the prescription is for a schedule... Start Date: 07/26/23 Stop Date: 08/25/23 Status: Ordered Mucinex 600 mg oral tablet, extended release 1 tablet = 600 mg, By Mouth, Every 12 hours, PRN Congestion, for 7 days, # 14 tablet, 0 Refills, Acute 08/18/23 16:08:00 EST, 08/11/23 16:08:00 EST, ER Tablet, [facility] [address] ([facility]), Partial fill upon patient request if the prescription is... Start Date: 08/11/23 Stop Date: 08/18/23 Status: Ordered nicotine 21 mg/24 hr transdermal film, extended release 1 patch, Topically, Daily, # 30 patch, 0 Refills, Maintenance, 07/26/23 10:45:00 EST, Patch, [facility] [address] ([facility]), Partial fill upon patient request if the prescription is for a schedule II opioid drug., 1 patch Topically Daily, 175, cm, 1... Start Date: 07/26/23 Status: Ordered omeprazole 40 mg oral enteric coated capsule 1 capsule = 40 mg, By Mouth, Daily, # 30 capsule, 1 Refills, Maintenance, 07/26/23 10:51:00 EST, ECCapsule, [facility] [address] ([facility]), Partial fill upon patient request if the prescription isfor a schedule II opioid drug., 175, cm, 07/26/23 8... Start Date: 07/26/23 Status: Ordered oxyCODONE 5 mg oral tablet 5 mg, By Mouth, Every 6 hours, PRN, # 16 tablet, Refills 0, Tot. Refills 0, Maintenance, Pain , Severe, 07/26/23 10:50:00 EST, Route to Pharmacy Electronically, [facility] [address] ([facility]), Partial fill upon patient request if the prescription is... Start Date: 07/26/23 Status: Ordered prazosin 1 mg oral capsule 2 mg, By Mouth, Daily at bedtime, # 30 capsule, Refills 0, Tot. Refills 0, Maintenance, 08/08/23 16:57:00 EST, Route to Pharmacy Electronically, [facility] [address] ([facility]), Partial fill upon patient request if the prescription is for a schedule... Start Date: 08/08/23 Status: Ordered predniSONE 10 mg oral tablet = 30 mg, By Mouth, Every 24 hours, # 3 tablet, 0 Refills, Maintenance, 07/31/23 7:00:00 EST, Tablet, [facility] [address] ([facility]), Partial fill upon patient request if the prescription is for a schedule II opioid drug., 175, cm, 07/26/23 8:30:00 E... Start Date: 07/31/23 Stop Date: 08/03/23 Status: Ordered predniSONE 10 mg oral tablet = 10 mg, By Mouth, Every 24 hours, # 3 tablet, 0 Refills, Maintenance, 08/06/23 7:00:00 EST, Tablet, [facility] [address] ([facility]), Partial fill upon patient request if the prescription is for a schedule II opioid drug., 175, cm, 07/26/23 8:30:00 E... Start Date: 08/06/23 Stop Date: 08/09/23 Status: Ordered predniSONE 50 mg oral tablet = 50 mg, By Mouth, Once, # 1 each, 0 Refills, Soft Stop, 07/27/23 7:00:00 EST, Tablet, [facility] [address] ([facility]), Partial fill upon patient request if the prescription is for a schedule II opioid drug., 175, cm, 07/26/23 8:30:00 EST, Height, 14... Start Date: 07/27/23 Status: Ordered QUEtiapine 100 mg oral tablet 100 mg, By Mouth, 2 times a day, PRN, # 60 tablet, Refills 0, Tot. Refills 0, Maintenance, Anxiety,07/26/23 10:51:00 EST, Route to Pharmacy Electronically, [facility] [address] ([facility]), Partial fill upon patient request if the prescription is for... Start Date: 07/26/23 Status: Ordered QUEtiapine 400 mg oral tablet 1 tablet = 400 mg, By Mouth, Daily at bedtime, # 30 tablet, 0 Refills, Maintenance, 07/26/23 10:51:00 EST, Tablet, [facility] [address] ([facility]), Partial fill upon patient request if the prescription is for a schedule II opioid drug., cher Perez, 06/29... Start Date: 07/26/23 Status: Ordered tiotropium 1.25 mcg/inh inhalation aerosol 2 puffs = 2.5 mcg, Inhalation, Daily, # 1 each, 6 Refills, Maintenance, 07/31/23 12:33:00 EST, Aerosol, [facility] [address] ([facility]), Partial fill upon patient request if the prescription is for a schedule II opioid drug., cher Perez, 07/26/23 8:30:0... Start Date: 07/31/23 Status: Ordered Tums 500 mg oral tablet, chewable 500 mg, 1, tablet, Chew, Every 4 hours, PRN, # 60 tablet, Refills 0, Tot. Refills 0, Maintenance, Dyspepsia, 07/26/23 10:47:00 EST, Route to Pharmacy Electronically, [facility] [address] ([facility]),Partial fill upon patient request if the prescripti... Start Date: 07/26/23 Status: Ordered Tylenol 8 Hour 650 mg oral tablet, extended release 2 tablet = 1,300 mg, By Mouth, Every 8 hours, # 180 tablet, 1 Refills, Maintenance, 07/11/23 15:44:00 EST, ER Tablet, [facility], Partial fill upon patient request if the prescription is for a schedule II opioid drug.Ana cm, 07/11/23 13:5... Start Date: 07/11/23 Status: Ordered Vitamin D3 1000 intl units oral capsule 1 capsule = 25 mcg, By Mouth, Daily, # 30 capsule, 0 Refills, Maintenance, 07/26/23 10:51:00 EST, Capsule, [facility] [address] ([facility]), Partial fill upon patient request if the prescription is for a schedule II opioid drug.Chris cm, 07/26/23 8:3... Start Date: 07/26/23 Status: [...] Team Personnel Name: Shane Christie RN Position: [facility] RN Member Role: Primary Care Nurse Name: Hilda Escobar RN Position: [facility] RN Member Role: Primary Care Nurse Name: Mahendra Maria Position: [facility] RN Member Role: Primary Care Nurse Name: Danika Connor RN Position: S RN Member Role: Primary Care Nurse Name: Jeni Solorio RN Position: [facility] RN Member Role: Primary Care Nurse Name: Rebekah Delatorre RN Position: [facility] RN Member Role: Primary Care Nurse Name: Polly Vuong MD, V Position: [facility] Physician - Primary Care Member Role: PCP Address: Address: [address] [place] [id number]- Name: Cheryle Godinez Position: [facility] RN Member Role: Primary Care Nurse Name: Scooter Locke RN Position: [facility] RN Member Role: Primary Care Nurse Name: Sandi Hightower RN Position: [facility] RN Member Role: Primary Care Nurse Name: Angelita Almeida RN Position: [facility] RN Member Role: Primary Care Nurse Name: Citlali Reilly Position: S RN Member Role: Primary Care Nurse Name: Tiny Pettit RN Position: [facility] RN Member Role: Primary Care Nurse Name: Mel Hidalgo RN Position: [facility] RN Member Role: Primary Care Nurse Name: Marcelino Fermin RN Position: [facility] RN Member Role: Primary Care Nurse Name: Brenda Toscano NP Position: Reference Physician Member Role: Primary Care Nurse Address: Address: [address] [place] [id number]- Care Team Related Persons Name: MACOKEY Address: [place] [address] Name: AIDA DEWEY Address: [address] [address] Name: CARLIN ORTEGA
--- OUTSIDE RECORDS SUMMARY | 2023-09-19 10:28 | XMS_ITS | Continuity of Care Document ---
Author Name Unknown Organization [facility] Address [address] [place] [address]- Care Team Providers Care Baker Second Name Role Phone Yevgeniy ÁLVAREZ, Polly Kapoor Primary Care Physician [place] [facility] [place]/12/[place] - 08/11/23 [facility] [address] [place], [place] [address] Allergies, Adverse Reactions, Alerts Substance Reaction Severity Status codeine Active aspirin Active Haldol Active NSAIDs Active PROzac Active TraMADol Hydrochloride Activ e Immunizations Given and Recorded Vaccine Date Status Refusal Reason influenza virus vaccine, inactivated 07/17/23 Give n [id number] bivalent booster vax 06/21/22 Recorded tetanus/diphtheria/pertussis, acel(Tdap) 1 05/14/21 Given SARS-CoV-2 (COVID-19) Ad26 vaccine 2 02/15/21 Give n Influenza Virus Vaccine (oldterm) 06/11/20 Recorde d 1Result Comment: [facility] [id number] 2Result Comment: [facility] [id number] Medications albuterol CFC free 90 mcg/inh inhalation aerosol 180 mcg, 2, puffs, Inhalation, Every 6 hours, PRN, # 8 Gm, Refills 6, Tot. Refills 6, Maintenance, 07/31/23 12:32:00 EST, Inhaler, Route to Pharmacy Electronically, [id number], [facility] [id number] ([facility]), 175, cm, 07/26... Start Date: 07/31/23 Status: Ordered amLODIPine 10 mg oral tablet 1 tablet = 10 mg, By Mouth, Daily, # 90 tablet, 0 Refills, Maintenance, 07/26/23 10:51:00 EST, Tablet, [id number] ([facility]), Partial fill upon patient request if [...] Refills, Maintenance, 07/26/23 10:51:00 EST, Tablet, [facility] ([facility]), Partial fill upon patient request if the prescription is for a schedule II opioid drug., 175, cm, 07/26... Start Date: 07/26/23 Status: Ordered cloNIDine 0.1 mg oral tablet 0.1 mg, By Mouth, 3 times a day, PRN, # 90 tablet, Refills 0, Tot. Refills 0, Maintenance, Anxiety,07/26/23 10:51:00 EST, Route to Pharmacy Electronically, [id number] ([facility]), Partial fill upon patient request if the prescription is for... Start Date: 07/26/23 Status: Ordered cyanocobalamin 1000 mcg oral tablet, extended release 1 tablet = 1,000 mcg, By Mouth, Daily, # 90 tablet, 3 Refills, Maintenance, 08/11/23 12:10:00 EST, ER Tablet, [facility] ([facility]), Partial fill upon patient request if the prescription is for a schedule II opioid drug., 175, cm, 07/26/23... Start Date: 08/11/23 Status: Ordered cyclobenzaprine 10 mg oral tablet 10 mg, By Mouth, 3 times a day, PRN, # 24 each, Refills 1, Tot. Refills 1, Maintenance, Pain , Moderate, 08/11/23 16:09:00 EST, Route to Pharmacy Electronically, [id number] ([facility]), Partial fill upon patient request if the prescription i... Start Date: 08/11/23 Status: Ordered diclofenac 1% topical gel = 4 Gm, Topically, 4 times a day, to each knee. not to exceed 16 grams/day/single joint of lower extremities, # 480 Gm, 0 Refills, Maintenance, 07/26/23 10:51:00 EST, Gel, [facility] ([id number]), Partial fill upon patient request if the pr... Start Date: 07/26/23 Status: Ordered diclofenac 1% topical gel = 2 Gm, Topically, 4 times a day, to L shoulder not to exceed 8 grams/day/single joint of upper extremities, # 240 Gm, 0 Refills, Maintenance, 07/26/23 10:51:00 EST, Gel, [id number] ([facility]), Partial fill upon patient request if the pre... Start Date: 07/26/23 Status: Ordered divalproex sodium 250 mg oral tablet, extended release = 750 mg, By Mouth, Daily, # 90 tablet, 0 Refills, Maintenance, 07/26/23 10:51:00 EST, ER Tablet, [facility] [id number] ([facility]), Partial fill upon patient request if the prescription is for a schedule II opioid drug., 175, cm, 07/26/23 8:30:00 EST,... Start Date: 07/26/23 Status: Ordered fluticasone-vilanterol 100 mcg-25 mcg/inh inhalation powder 1 puffs, Inhalation, Daily, Rinse mouth after each use, # 1 each, 6 Refills, Maintenance, 07/31/23 12:33:00 EST, Inhaler, [facility] ([facility]), Partial fill upon patient request if the prescription is for a schedule II opioid drug., 1 puff... Start Date: 07/31/23 Status: Ordered gabapentin 400 mg oral capsule 400 mg, By Mouth, 3 times a day, # 90 capsule, Refills 0, Tot. Refills 0, Maintenance, 07/26/23 10:51:00 EST, Route to Pharmacy Electronically, [facility] [id number] ([facility]), Partial fill upon patient request if the prescription is for a schedule I... Start Date: 07/26/23 Stop Date: 08/25/23 Status: Ordered hydrOXYzine pamoate 50 mg oral capsule = 50 mg, By Mouth, 3 times a day, PRN Anxiety, # 90 capsule, 0 Refills, Maintenance, 07/26/23 10:49:00 EST, Capsule, [facility] [address] ([facility]), Partial fill upon patient request if the prescription is for a schedule II opioid drug., 175, cm, 11... Start Date: 07/26/23 Status: Ordered lidocaine 5% topical film 1 patch, Topically, Daily, PRN Pain , Mild, # 30 patch, 0 Refills, Maintenance, 07/26/23 10:44:00 EST, Patch, [facility] [address] ([facility]), Partial fill upon patient request if the prescription is for a schedule II opioid drug., 1 patch Topically... Start Date: 07/26/23 Status: Ordered loratadine 10 mg oral tablet 10 mg, By Mouth, Daily, # 30 tablet, Refills 0, Tot. Refills 0, Maintenance, 07/26/23 10:45:00 EST,Route to Pharmacy Electronically, [facility] [id number] ([facility]), Partial fill upon patient request if the prescription is for a schedule II opioid d... Start Date: 07/26/23 Status: Ordered melatonin 3 mg oral tablet = 3 mg, By Mouth, Daily at bedtime, PRN Sleep, for 30 days, Can repeate 1x, # 30 tablet, 0 Refills,Acute 08/25/23 10:50:00 EST, 07/26/23 10:50:00 EST, Tablet, [facility] [address] ([facility]), Partial fill upon patient request if the prescription is... Start Date: 07/26/23 Stop Date: 08/25/23 Status: Ordered montelukast 10 mg oral tablet 10 mg, 1, tablet, By Mouth, Daily, # 30 tablet, Refills 0, Tot. Refills 0, Maintenance, 07/26/23 10:51:00 EST, Route to Pharmacy Electronically, [facility] [id number] ([facility]), Partial fill upon patient request if the prescription is for a schedule... Start Date: 07/26/23 Stop Date: 08/25/23 Status: Ordered Mucinex 600 mg oral tablet, extended release 1 tablet = 600 mg, By Mouth, Every 12 hours, PRN Congestion, for 7 days, # 14 tablet, 0 Refills, Acute 08/18/23 16:08:00 EST, 08/11/23 16:08:00 EST, ER Tablet, [facility] [address] ([facility]), Partial fill upon patient request if the prescription is... Start Date: 08/11/23 Stop Date: 08/18/23 Status: Ordered nicotine 21 mg/24 hr transdermal film, extended release 1 patch, Topically, Daily, # 30 patch, 0 Refills, Maintenance, 07/26/23 10:45:00 EST, Patch, [facility] [address] ([facility]), Partial fill upon patient request if the prescription is for a schedule II opioid drug., 1 patch Topically Daily, 175, cm, 1... Start Date: 07/26/23 Status: Ordered omeprazole 40 mg oral enteric coated capsule 1 capsule = 40 mg, By Mouth, Daily, # 30 capsule, 1 Refills, Maintenance, 07/26/23 10:51:00 EST, ECCapsule, [facility] [address] ([employer]), Partial fill upon patient request if the prescription isfor a schedule II opioid drug., 175, cm, 07/26/23 8... Start Date: 07/26/23 Status: Ordered oxyCODONE 5 mg oral tablet 5 mg, By Mouth, Every 6 hours, PRN, # 16 tablet, Refills 0, Tot. Refills 0, Maintenance, Pain , Severe, 07/26/23 10:50:00 EST, Route to Pharmacy Electronically, [facility] [id number] ([facility]), Partial fill upon patient request if the prescription is... Start Date: 07/26/23 Status: Ordered prazosin 1 mg oral capsule 2 mg, By Mouth, Daily at bedtime, # 30 capsule, Refills 0, Tot. Refills 0, Maintenance, 08/08/23 16:57:00 EST, Route to Pharmacy Electronically, [facility] ([facility]), Partial fill upon patient request if the prescription is for a schedule... Start Date: 08/08/23 Status: Ordered predniSONE 10 mg oral tablet = 30 mg, By Mouth, Every 24 hours, # 3 tablet, 0 Refills, Maintenance, 07/31/23 7:00:00 EST, Tablet, [facility] ([facility]), Partial fill upon patient request if the prescription is for a schedule II opioid drug., 175, cm, 07/26/23 8:30:00 E... Start Date: 07/31/23 Stop Date: 08/03/23 Status: Ordered predniSONE 10 mg oral tablet = 10 mg, By Mouth, Every 24 hours, # 3 tablet, 0 Refills, Maintenance, 08/06/23 7:00:00 EST, Tablet, [facility] ([facility]), Partial fill upon patient request if the prescription is for a schedule II opioid drug., 175, cm, 07/26/23 8:30:00 E... Start Date: 08/06/23 Stop Date: 08/09/23 Status: Ordered predniSONE 50 mg oral tablet = 50 mg, By Mouth, Once, # 1 each, 0 Refills, Soft Stop, 07/27/23 7:00:00 EST, Tablet, [facility] ([facility]), Partial fill upon patient request if the prescription is for a schedule II opioid drug., 175, cm, 07/26/23 8:30:00 EST, Height, 14... Start Date: 07/27/23 Status: Ordered QUEtiapine 100 mg oral tablet 100 mg, By Mouth, 2 times a day, PRN, # 60 tablet, Refills 0, Tot. Refills 0, Maintenance, Anxiety,07/26/23 10:51:00 EST, Route to Pharmacy Electronically, [facility] [id number] ([facility]), Partial fill upon patient request if the prescription is for... Start Date: 07/26/23 Status: Ordered QUEtiapine 400 mg oral tablet 1 tablet = 400 mg, By Mouth, Daily at bedtime, # 30 tablet, 0 Refills, Maintenance, 07/26/23 10:51:00 EST, Tablet, [facility] ([facility]), Partial fill upon patient request if the prescription is for a schedule II opioid drug., cher Perez, 06/29... Start Date: 07/26/23 Status: Ordered tiotropium 1.25 mcg/inh inhalation aerosol 2 puffs = 2.5 mcg, Inhalation, Daily, # 1 each, 6 Refills, Maintenance, 07/31/23 12:33:00 EST, Aerosol, [facility] [address] ([facility]), Partial fill upon patient request if the prescription is for a schedule II opioid drug., cher Perez, 07/26/23 8:30:0... Start Date: 07/31/23 Status: Ordered Tums 500 mg oral tablet, chewable 500 mg, 1, tablet, Chew, Every 4 hours, PRN, # 60 tablet, Refills 0, Tot. Refills 0, Maintenance, Dyspepsia, 07/26/23 10:47:00 EST, Route to Pharmacy Electronically, [facility] ([facility]),Partial fill upon patient request if the prescripti... Start Date: 07/26/23 Status: Ordered Tylenol 8 Hour 650 mg oral tablet, extended release 2 tablet = 1,300 mg, By Mouth, Every 8 hours, # 180 tablet, 1 Refills, Maintenance, 07/11/23 15:44:00 EST, ER Tablet, [facility], Partial fill upon patient request if the prescription is for a schedule II opioid drug.Ana cm, 07/11/23 13:5... Start Date: 07/11/23 Status: Ordered Vitamin D3 1000 intl units oral capsule 1 capsule = 25 mcg, By Mouth, Daily, # 30 capsule, 0 Refills, Maintenance, 07/26/23 10:51:00 EST, Capsule, [facility] [address] ([facility]), Partial fill upon patient request if [...] Team Personnel Name: Shane Christie RN Position: [facility] RN Member Role: Primary Care Nurse Name: Hilda Escobar RN Position: [facility] RN Member Role: Primary Care Nurse Name: Mahendra Maria Position: [facility] RN Member Role: Primary Care Nurse Name: Danika Connor RN Position: S RN Member Role: Primary Care Nurse Name: Jeni Solorio RN Position: [facility] RN Member Role: Primary Care Nurse Name: Rebekah Delatorre RN Position: [facility] RN Member Role: Primary Care Nurse Name: Polly Vuong MD, V Position: [facility] Physician - Primary Care Member Role: PCP Address: Address: [address] [place] [id number]- Name: Cheryle Godinez Position: [facility] RN Member Role: Primary Care Nurse Name: Scooter Locke RN Position: [facility] RN Member Role: Primary Care Nurse Name: Sandi Hightower RN Position: [facility] RN Member Role: Primary Care Nurse Name: Angelita Almeida RN Position: [facility] RN Member Role: Primary Care Nurse Name: Citlali Reilly Position: S RN Member Role: Primary Care Nurse Name: Tiny Pettit RN Position: [facility] RN Member Role: Primary Care Nurse Name: Mel Hidalgo RN Position: [facility] RN Member Role: Primary Care Nurse Name: Marcelino Fermin RN Position: [facility] RN Member Role: Primary Care Nurse Name: Brenda Toscano NP Position: Reference Physician Member Role: Primary Care Nurse Address: Address: [address] [place] [id number]- Care Team Related Persons Name: MACOKEY Address: [place] [address] Name: AIDA DEWEY Address: [address] [address] Name: CARLIN ORTEGA
--- OUTSIDE RECORDS SUMMARY | 2023-09-19 10:28 | XMS_ITS | Continuity of Care Document ---
Author Name Unknown Organization [facility] Address [address] [place] [address]- Care Team Providers Care Scaler Packer Name Role Phone Yevgeniy ÁLVAREZ, Polly Kapoor Primary Care Physician Encounter [facility] [place] Date(s): 08/04/23 - 08/11/23 [facility] [address] [place], [place] [address] Encounter Diagnosis COVID-19(Discharge Diagnosis) - 08/04/23 Attending Physician: Stephanie Banks MD Allergies, Adverse Reactions, Alerts Substance Reaction Severity Status codeine Active aspirin Active Haldol Active NSAIDs Active PROzac Active TraMADol Hydrochloride Activ e Immunizations Given and Recorded Vaccine Date Status Refusal Reason influenza virus vaccine, inactivated 07/17/23 Give n [id number] bivalent booster vax 06/21/22 Recorded tetanus/diphtheria/pertussis, acel(Tdap) 1 05/14/21 Given SARS-CoV-2 (COVID-19) Ad26 vaccine 2 02/15/21 Give n Influenza Virus Vaccine (oldterm) 06/11/20 Recorde d 1Result Comment: [facility] [id number] 2Result Comment: [facility] 58305-437-11 Medications albuterol CFC free 90 mcg/inh inhalation aerosol 180 mcg, 2, puffs, Inhalation, Every 6 hours, PRN, # 8 Gm, Refills 6, Tot. Refills 6, Maintenance, 07/31/23 12:32:00 EST, Inhaler, Route to Pharmacy Electronically, [id number], [facility] ([facility] 827), 175, cm, 07/26... Start Date: 07/31/23 Status: Ordered amLODIPine 10 mg oral tablet 1 tablet = 10 mg, By Mouth, Daily, # 90 tablet, 0 Refills, Maintenance, 07/26/23 10:51:00 EST, Tablet, [facility] ([facility] 827), Partial fill upon patient request [...] Refills, Maintenance, 07/26/23 10:51:00 EST, Tablet, [facility] ([facility] 827), Partial fill upon patient request if the prescription is for a schedule II opioid drug., 175, cm, 07/26... Start Date: 07/26/23 Status: Ordered cloNIDine 0.1 mg oral tablet 0.1 mg, By Mouth, 3 times a day, PRN, # 90 tablet, Refills 0, Tot. Refills 0, Maintenance, Anxiety,07/26/23 10:51:00 EST, Route to Pharmacy Electronically, [facility] ([facility] 827), Partial fill upon patient request if the prescription is for... Start Date: 07/26/23 Status: Ordered cyanocobalamin 1000 mcg oral tablet, extended release 1 tablet = 1,000 mcg, By Mouth, Daily, # 90 tablet, 3 Refills, Maintenance, 08/11/23 12:10:00 EST, ER Tablet, [facility] ([facility] 827), Partial fill upon patient request if the prescription is for a schedule II opioid drug., 175, cm, 07/26/23... Start Date: 08/11/23 Status: Ordered cyclobenzaprine 10 mg oral tablet 10 mg, By Mouth, 3 times a day, PRN, # 24 each, Refills 1, Tot. Refills 1, Maintenance, Pain , Moderate, 08/11/23 16:09:00 EST, Route to Pharmacy Electronically, [facility] ([email or web address]), Partial fill upon patient request if the prescription i... Start Date: 08/11/23 Status: Ordered diclofenac 1% topical gel = 4 Gm, Topically, 4 times a day, to each knee. not to exceed 16 grams/day/single joint of lower extremities, # 480 Gm, 0 Refills, Maintenance, 07/26/23 10:51:00 EST, Gel, [facility] ([email or web address]), Partial fill upon patient request if the pr... Start Date: 07/26/23 Status: Ordered diclofenac 1% topical gel = 2 Gm, Topically, 4 times a day, to L shoulder not to exceed 8 grams/day/single joint of upper extremities, # 240 Gm, 0 Refills, Maintenance, 07/26/23 10:51:00 EST, Gel, [facility] ([facility] 827), Partial fill upon patient request if the pre... Start Date: 07/26/23 Status: Ordered divalproex sodium 250 mg oral tablet, extended release = 750 mg, By Mouth, Daily, # 90 tablet, 0 Refills, Maintenance, 07/26/23 10:51:00 EST, ER Tablet, [facility] ([facility] 827), Partial fill upon patient request if the prescription is for a schedule II opioid drug., 175, cm, 07/26/23 8:30:00 EST,... Start Date: 07/26/23 Status: Ordered fluticasone-vilanterol 100 mcg-25 mcg/inh inhalation powder 1 puffs, Inhalation, Daily, Rinse mouth after each use, # 1 each, 6 Refills, Maintenance, 07/31/23 12:33:00 EST, Inhaler, [facility] ([email or web address]), Partial fill upon patient request if the prescription is for a schedule II opioid drug., 1 puff... Start Date: 07/31/23 Status: Ordered gabapentin 400 mg oral capsule 400 mg, By Mouth, 3 times a day, # 90 capsule, Refills 0, Tot. Refills 0, Maintenance, 07/26/23 10:51:00 EST, Route to Pharmacy Electronically, [facility] [address] ([facility]), Partial fill upon patient request if the prescription is for a schedule I... Start Date: 07/26/23 Stop Date: 08/25/23 Status: Ordered hydrOXYzine pamoate 50 mg oral capsule = 50 mg, By Mouth, 3 times a day, PRN Anxiety, # 90 capsule, 0 Refills, Maintenance, 07/26/23 10:49:00 EST, Capsule, [facility] ([facility]), Partial fill upon patient request if the prescription is for a schedule II opioid drug., 175, cm, 11... Start Date: 07/26/23 Status: Ordered lidocaine 5% topical film 1 patch, Topically, Daily, PRN Pain , Mild, # 30 patch, 0 Refills, Maintenance, 07/26/23 10:44:00 EST, Patch, [facility] ([facility]), Partial fill upon patient request if the prescription is for a schedule II opioid drug., 1 patch Topically... Start Date: 07/26/23 Status: Ordered loratadine 10 mg oral tablet 10 mg, By Mouth, Daily, # 30 tablet, Refills 0, Tot. Refills 0, Maintenance, 07/26/23 10:45:00 EST,Route to Pharmacy Electronically, [facility] ([facility]), Partial fill upon patient request if the prescription is for a schedule II opioid d... Start Date: 07/26/23 Status: Ordered melatonin 3 mg oral tablet = 3 mg, By Mouth, Daily at bedtime, PRN Sleep, for 30 days, Can repeate 1x, # 30 tablet, 0 Refills,Acute 08/25/23 10:50:00 EST, 07/26/23 10:50:00 EST, Tablet, [facility] ([facility]), Partial fill upon patient request if the prescription is... Start Date: 07/26/23 Stop Date: 08/25/23 Status: Ordered montelukast 10 mg oral tablet 10 mg, 1, tablet, By Mouth, Daily, # 30 tablet, Refills 0, Tot. Refills 0, Maintenance, 07/26/23 10:51:00 EST, Route to Pharmacy Electronically, [facility] [address] ([facility]), Partial fill upon patient request if the prescription is for a schedule... Start Date: 07/26/23 Stop Date: 08/25/23 Status: Ordered Mucinex 600 mg oral tablet, extended release 1 tablet = 600 mg, By Mouth, Every 12 hours, PRN Congestion, for 7 days, # 14 tablet, 0 Refills, Acute 08/18/23 16:08:00 EST, 08/11/23 16:08:00 EST, ER Tablet, [facility] ([facility]), Partial fill upon patient request if the prescription is... Start Date: 08/11/23 Stop Date: 08/18/23 Status: Ordered nicotine 21 mg/24 hr transdermal film, extended release 1 patch, Topically, Daily, # 30 patch, 0 Refills, Maintenance, 07/26/23 10:45:00 EST, Patch, [facility] ([facility]), Partial fill upon patient request if the prescription is for a schedule II opioid drug., 1 patch Topically Daily, 175, cm, 1... Start Date: 07/26/23 Status: Ordered omeprazole 40 mg oral enteric coated capsule 1 capsule = 40 mg, By Mouth, Daily, # 30 capsule, 1 Refills, Maintenance, 07/26/23 10:51:00 EST, ECCapsule, [facility] [address] ([facility]), Partial fill upon patient request if the prescription isfor a schedule II opioid drug., 175, cm, 07/26/23 8... Start Date: 07/26/23 Status: Ordered oxyCODONE 5 mg oral tablet 5 mg, By Mouth, Every 6 hours, PRN, # 16 tablet, Refills 0, Tot. Refills 0, Maintenance, Pain , Severe, 07/26/23 10:50:00 EST, Route to Pharmacy Electronically, [facility] [address] ([place]), Partial fill upon patient request if the prescription is... Start Date: 07/26/23 Status: Ordered prazosin 1 mg oral capsule 2 mg, By Mouth, Daily at bedtime, # 30 capsule, Refills 0, Tot. Refills 0, Maintenance, 08/08/23 16:57:00 EST, Route to Pharmacy Electronically, [facility] ([facility]), Partial fill upon patient request if the prescription is for a schedule... Start Date: 08/08/23 Status: Ordered predniSONE 10 mg oral tablet = 30 mg, By Mouth, Every 24 hours, # 3 tablet, 0 Refills, Maintenance, 07/31/23 7:00:00 EST, Tablet, [facility] ([facility]), Partial fill upon patient request if the prescription is for a schedule II opioid drug., 175, cm, 07/26/23 8:30:00 E... Start Date: 07/31/23 Stop Date: 08/03/23 Status: Ordered predniSONE 10 mg oral tablet = 10 mg, By Mouth, Every 24 hours, # 3 tablet, 0 Refills, Maintenance, 08/06/23 7:00:00 EST, Tablet, [facility] ([email or web address]), Partial fill upon patient request if the prescription is for a schedule II opioid drug., 175, cm, 07/26/23 8:30:00 E... Start Date: 08/06/23 Stop Date: 08/09/23 Status: Ordered predniSONE 50 mg oral tablet = 50 mg, By Mouth, Once, # 1 each, 0 Refills, Soft Stop, 07/27/23 7:00:00 EST, Tablet, [facility] ([facility]), Partial fill upon patient request if the prescription is for a schedule II opioid drug., 175, cm, 07/26/23 8:30:00 EST, Height, 14... Start Date: 07/27/23 Status: Ordered QUEtiapine 100 mg oral tablet 100 mg, By Mouth, 2 times a day, PRN, # 60 tablet, Refills 0, Tot. Refills 0, Maintenance, Anxiety,07/26/23 10:51:00 EST, Route to Pharmacy Electronically, [facility] ([facility]), Partial fill upon patient request if the prescription is for... Start Date: 07/26/23 Status: Ordered QUEtiapine 400 mg oral tablet 1 tablet = 400 mg, By Mouth, Daily at bedtime, # 30 tablet, 0 Refills, Maintenance, 07/26/23 10:51:00 EST, Tablet, [facility] ([email or web address]), Partial fill upon patient request if the prescription is for a schedule II opioid drug., cher Perez, 06/29... Start Date: 07/26/23 Status: Ordered tiotropium 1.25 mcg/inh inhalation aerosol 2 puffs = 2.5 mcg, Inhalation, Daily, # 1 each, 6 Refills, Maintenance, 07/31/23 12:33:00 EST, Aerosol, [facility] ([facility]), Partial fill upon patient request if the prescription is for a schedule II opioid drug., cher Perez, 07/26/23 8:30:0... Start Date: 07/31/23 Status: Ordered Tums 500 mg oral tablet, chewable 500 mg, 1, tablet, Chew, Every 4 hours, PRN, # 60 tablet, Refills 0, Tot. Refills 0, Maintenance, Dyspepsia, 07/26/23 10:47:00 EST, Route to Pharmacy Electronically, [facility] ([email or web address]),Partial fill upon patient request if the prescripti... Start Date: 07/26/23 Status: Ordered Tylenol 8 Hour 650 mg oral tablet, extended release 2 tablet = 1,300 mg, By Mouth, Every 8 hours, # 180 tablet, 1 Refills, Maintenance, 07/11/23 15:44:00 EST, ER Tablet, [facility], Partial fill upon patient request if the prescription is for a schedule II opioid drug., 178cher, 07/11/23 13:5... Start Date: 07/11/23 Status: Ordered Vitamin D3 1000 intl units oral capsule 1 capsule = 25 mcg, By Mouth, Daily, # 30 capsule, 0 Refills, Maintenance, 07/26/23 10:51:00 EST, Capsule, [facility] ([email or web address]), Partial fill upon patient request if [...] Tendinitis of left rotator cuff Confirmed Active Diagnosis Diagnosis Type Effective Dates Health Status Clini fadi Service Informant COVID-19 Discharge Diagnosis 08/04/23 Social History Social History Type Response Smoking Status 10 or more cigarette s (1/2 pack or more)/day in last 30 days; Interested in cessation: Yes; Patient wants NRT during admission Yes; Other: 2 PPD currently; entered on: 07/15/23 Sex Patient Care team information Care Team Personnel Name: Shane Christie RN Position: [facility] RN Member Role: Primary Care Nurse Name: Hilda Escobar RN Position: [facility] RN Member Role: Primary Care Nurse Name: Mahendra Maria Position: [facility] RN Member Role: Primary Care Nurse Name: Danika Connor RN Position: [facility] RN Member Role: Primary Care Nurse Name: Jeni Solorio RN Position: [facility] RN Member Role: Primary Care Nurse Name: Rebekah Delatorre RN Position: [facility] RN Member Role: Primary Care Nurse Name: Polly Vuong MD, V Position: [facility] Physician - Primary Care Member Role: PCP Address: Address: [address] [place] [address] Name: Cheryle Godinez Position: [facility] RN Member Role: Primary Care Nurse Name: Scooter Locke RN Position: [facility] RN Member Role: Primary Care Nurse Name: Sandi Hightower RN Position: [facility] RN Member Role: Primary Care Nurse Name: Angelita Almeida RN Position: [facility] RN Member Role: Primary Care Nurse Name: Citlali Reilly Position: [facility] RN Member Role: Primary Care Nurse Name: Tiny Pettit RN Position: [facility] RN Member Role: Primary Care Nurse Name: Mel Hidalgo RN Position: [facility] RN Member Role: Primary Care Nurse Name: Marcelino Fermin RN Position: [facility] RN Member Role: Primary Care Nurse Name: Brenda Toscano NP Position: Reference Physician Member Role: Primary Care Nurse Address: Address: [address] [place] [address], [place] [address]- Care Team Related Persons Name: KEY DEWEY Address: [place] [address] Name: AIDA DEWEY Address: home [address] [place] [id number] Name: NO, ONE
--- OUTSIDE RECORDS SUMMARY | 2023-09-19 10:28 | XMS_ITS | Continuity of Care Document ---
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 Attending Physician: Marii Chung MD Referring Physician: Polly Vuong MD, V Allergies, Adverse Reactions, Alerts Substance Reaction Severity Status codeine Active aspirin Active Haldol Active NSAIDs Active PROzac Active TraMADol Hydrochloride Activ e Immunizations Given and Recorded Vaccine Date Status Refusal Reason [id number] bivalent booster vax 06/21/22 Recorded tetanus/diphtheria/pertussis, acel(Tdap) 1 05/14/21 Given SARS-CoV-2 (COVID-19) Ad26 vaccine 2 02/15/21 Give n Influenza Virus Vaccine (oldterm) 06/11/20 Recorde d 1Result Comment: [facility] [id number] 2Result Comment: [facility] 55002-052-32 Medications amLODIPine 5 mg oral tablet 0 [...] 1 Refills, Maintenance, 11/08/22 11:26:00EDT, EC Capsule, [facility], Partial fill upon patient request if [...] capsule, 1 Refills, Maintenance, 02/27/23 15:17:00 [facility] [...] Effective Dates Health Status Clinical Service Informant Left knee pain Discharge Diagnosis 05/25/23 Fibrodysplasia ossificans congenita Discharge Diagnosis 05/25/23 Vital Signs Most recent to oldest [Reference Range]: 1 Height 177 cm (05/25/23 9:52 AM) Weight 138 kg (05/25/23 9:52 AM) Oxygen Saturation [94-100 %] 99 % (05/25/23 9:52 AM) Pulse Rate [55-90 bpm] 94 bpm *H* (05/25/23 9:52 AM) Body Mass Index [18.5-24.99 kg/m2] 44.05 kg/m2 *>HHI* (05/25/23 9:52 AM) Blood Pressure [90-138/55-84 mm Hg] 139/ 85mm Hg *H* (05/25/23 9:52 AM) Respiratory Rate [16-30 br/min] 19 br/mi n (05/25/23 9:52 AM) Temperature [96.8-100.4 DegF] 98 DegF (05/25/23 9:52 AM) Mode of Delivery (Oxygen) Room air (05/25/23 9:52 AM) Blood pressure sites Arm, left (05/25/23 9:52 AM) Temperature Route Oral (05/25/23 9:52 AM) Dry Weight 138 kg (05/25/23 9:52 AM) Weight Obtained Via Patient/family state d (05/25/23 9:52 AM) Dry Weight Obtained Via Patient/family s tated (05/25/23 9:52 AM) Social History Social History Type Response Smoking Status 10 or more cigarette s (1/2 pack or more)/day in last 30 days; Interested in cessation: No; Patient wants NRT during admission Yes; Other: 1/2 pack daily; entered on: 01/13/22 Sex Note * Nataly Styles [place]: PERFORM, SIGN, VERIFY Event Display: Patient Education/Instruction Authored Date: [id number] [facility] *[facility] Clinical Summary Name PEGGY DEWEY Age 47 Years 1975 PCP Yevgeniy ÁLVAREZ, Pol[phone] Visit Date 05/25/2023 09:18:00 Additional Instructions: Scheduled Appointments?? Future Appointments ?No Future Appointments Scheduled Follow-Up Instructions ?? Diagnosis Pain in left knee; Myositis ossificans progressiva, unspecified site Medications: Please continue your medications until treatment is completed or stopped by your provider. Discuss any questions related to medications with your provider. Medications to Continue with No Changes These [...] mg oral enteric coated capsule) Next Dose: Durable Medical Equipment (L knee brace) For use d/t osteoarthritis. Refills: 0. Next Dose: fluticasone-vilanterol (Breo Ellipta 100 mcg-25 [...] Orders ?No future orders Vital Signs Height 177 cm Weight 138 kg BMI 44.05 kg/m2 Blood Pressure 139 mm Hg/85 mm Hg Temperature 98 DegF Pulse Rate 94 bpm Respiratory Rate 19 br/min 02 Sat Mode of Delivery 99 %/Room air You can now view a summary of your hospital visit from the comfort of your home through a free online portal called [employer]. [employer] is a website that allows you to securely view your medical information including discharge summary, medications and follow-up visits. ??You can alsosend a secure electronic message to your doctor???s office to request appointments, renew medications or just ask a question. You can enroll at [email or web address] or register during your next office visit. [...] primary care provider, you may find a [facility] provider by calling [facility] pte Link at [phone]. [facility], in keeping with [facility] guidance, no longer requires face masks for staff, patientsor visitors in most situations. Similar to time spent indoors at other locations, there is the chance that you were exposed to respiratory viruses during your time with us (such as flu or COVID-19).? If you develop symptoms concerning for a viral respiratory infection, please seek testing (and treatment if indicated) from your medical provider or home test kit. For information about the plan of care including goals and instructions for your diagnosis, please see the patient education orders section of this document. Patient Education Materials?? The content of this educational material or handout may have been modified, supplemented, or adapted from its original content and format to support your individualized medical care. Additional Provider Instructions: Patient Care team information Care Team Personnel Name: Mahendra Maria Position: S RN Member Role: Primary Care Nurse Name: Jeni Solorio RN Position: S RN Member Role: Primary Care Nurse Name: Rebekah Delatorre RN Position: S RN Member Role: Primary Care Nurse Name: Polly Vuong MD, V Position: [facility] Physician - Primary Care Member Role: PCP Address: Address: [address] [place] [address] [place] [address]- Name: Sandi Hightower RN Position: [facility] RN Member Role: Primary Care Nurse Name: Angelita Almeida RN Position: [facility] RN Member Role: Primary Care Nurse Name: Marcelino Fermin RN Position: [facility] RN Member Role: Primary Care Nurse Care Team Related Persons Name: KEY DEWEY Name: AIDA DEWEY Address: [place] [address] Name: SHANNON, CARLIN
--- OUTSIDE RECORDS SUMMARY | 2023-09-19 10:28 | XMS_ITS | Continuity of Care Document ---
Author Name Unknown Organization [facility] Address [address] [place] [address]- Care Team Providers Care Cattle Rancher Name Role Phone Polly Vuong MD, V Primary Care Physician Encounter [facility] Date(s): 05/25/23 - 06/24/23 [facility] [address] [place] [address]- Attending Physician: AdmKimberly garcia Admitting Physician: Admtr, Ar8 Referring Physician: Admtr, Ar8 Allergies, Adverse Reactions, Alerts Substance Reaction Severity Status codeine Active aspirin Active TraMADol Hydrochloride Activ e Haldol Active NSAIDs Active PROzac Active Immunizations Given and Recorded Vaccine Date Status Refusal Reason [id number] bivalent booster vax 06/21/22 Recorded tetanus/diphtheria/pertussis, acel(Tdap) 1 05/14/21 Given SARS-CoV-2 (COVID-19) Ad26 vaccine 2 02/15/21 Give n Influenza Virus Vaccine (oldterm) 06/11/20 Recorde d 1Result Comment: [facility] [id number] 2Result Comment: [facility] [id number] Medications amLODIPine 5 mg oral tablet 0 [...] 1 Refills, Maintenance, 11/08/22 11:26:00EDT, EC Capsule, [facility], Partial fill upon [...] capsule, 1 Refills, Maintenance, 02/27/23 15:17:00 [facility] if [...] Care team information Care Team Personnel Name: Hilda Escobar RN Position: [facility] RN Member Role: Primary Care Nurse Name: Mahendra Maria Position: S RN Member Role: Primary Care Nurse Name: Elvi Snyder RN Position: S RN Member Role: Primary Care Nurse Name: Jeni Solorio RN Position: [facility] RN Member Role: Primary Care Nurse Name: Rebekah Delatorre RN Position: S RN Member Role: Primary Care Nurse Name: Polly Vuong MD, V Position: S Physician - Primary Care Member Role: PCP Address: Address: [address] [place] [address] Name: Cheryle Godinez Position: S RN Member Role: Primary Care Nurse Name: Sandi Hightower RN Position: S RN Member Role: Primary Care Nurse Name: Angelita Almeida RN Position: S RN Member Role: Primary Care Nurse Name: Mel Hidalgo RN Position: S RN Member Role: Primary Care Nurse Name: Marcelino Fermin RN Position: S RN Member Role: Primary Care Nurse Name: Brenda Toscano RN Position: S RN Member Role: Primary Care Nurse Care Team Related Persons Name: KEY DEWEY Name: AIDA DEWEY Address: [place] [address] Name: NO, ONE
--- OUTSIDE RECORDS SUMMARY | 2023-09-19 10:28 | XMS_ITS | Continuity of Care Document ---
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 Name Role Phone Polly Vuong MD, V Primary Care Physician [phone] [id number] Date(s): 07/11/23 - 07/18/23 [facility] [address] [place] [address]- Encounter Diagnosis Tendinitis of left rotator cuff(Discharge Diagnosis) - 07/11/23 Morbid obesity(Discharge Diagnosis) - 07/11/23 Bipolar disorder, current episode mixed, severe, without psychotic features (Discharge Diagnosis) - 07/11/23 Cluster B personality disorder(Discharge Diagnosis) - 07/11/23 Post-traumatic stress disorder, chronic(Discharge Diagnosis) - 07/11/23 Hospitalization within last 30 days(Discharge Diagnosis) - 07/11/23 Osteoarthritis of knees, bilateral(Discharge Diagnosis) - 07/11/23 HTN (hypertension)(Discharge Diagnosis) - 07/11/23 Cigarette smoker(Discharge Diagnosis) - 07/11/23 Housing instability, housed, with risk of homelessness(Discharge Diagnosis) - 07/11/23 Acute bronchitis(Discharge Diagnosis) - 07/11/23 Attending Physician: Polly Vuong MD, V Allergies, Adverse Reactions, Alerts Substance Reaction Severity Status codeine Active aspirin Active Haldol Active NSAIDs Active PROzac Active TraMADol Hydrochloride Activ e Immunizations Given and Recorded Vaccine Date Status Refusal Reason influenza virus vaccine, inactivated 07/17/23 Give n [id number] bivalent booster vax 06/21/22 Recorded tetanus/diphtheria/pertussis, acel(Tdap) 1 05/14/21 Given SARS-CoV-2 (COVID-19) Ad26 vaccine 2 02/15/21 Give n Influenza Virus Vaccine (oldterm) 06/11/20 Recorde d 1Result Comment: [facility] [id number] 2Result Comment: [facility] [id number] Medications amLODIPine 10 mg oral tablet 1 tablet = 10 mg, By Mouth, Daily, # 90 tablet, 3 Refills, Maintenance, 07/11/23 15:43:00 EST, Tablet, [facility], Partial fill upon patient request if the prescription is for a schedule IIopioid drug., cher Perez, 07/11/23 13:58:00 EST, Heigh... Start Date: 07/11/23 Status: Ordered benztropine 0.5 mg oral tablet 0.5 mg, 1, tablet, By Mouth, 3 times a day, take with perphenazine, # 90 tablet, Refills 0, Tot. Refills 0, Maintenance, 06/29/23 14:13:00 EDT, Route to Pharmacy Electronically, [facility],Partial fill upon patient request if the prescripti... Start Date: 06/29/23 Status: Ordered Breo Ellipta 100 mcg-25 mcg/inh inhalation powder 1 puffs, Inhalation, Daily, Rinse mouth after every use, # 1 each, 6 Refills, Maintenance, 07/11/2315:46:00 EST, Inhaler, [facility], Partial fill upon patient request if the prescription is for a schedule II opioid drug., 1 puffs Inhalatio... Start Date: 07/11/23 Status: Ordered capsaicin 0.025% topical cream Topically, 3 times a day, 0 Refills, Maintenance, 03/27/23 14:31:00 EDT, Partial fill upon patient request if the prescription is for a schedule II opioid drug. Start Date: 03/27/23 Status: Ordered clonazePAM 1 mg oral tablet = 1 mg, By Mouth, 3 times a day, PRN Anxiety, # 42 tablet, 0 Refills, Maintenance, 06/29/23 14:13:00 EDT, Tablet, [facility], Partial fill upon patient request if the prescription is for a schedule II opioid drug., 178cher, 06/29/23 8:23:00... Start Date: 06/29/23 Status: Ordered cloNIDine 0.1 mg oral tablet 0.1 mg, By Mouth, 3 times a day, # 90 tablet, Refills 0, Tot. Refills 0, Maintenance, 06/29/23 14:13:00 EDT, Route to Pharmacy Electronically, [facility], Partial fill upon patient request if the prescription is for a schedule II opioid drug... Start Date: 06/29/23 Status: Ordered cyanocobalamin 1000 mcg oral tablet, extended release 1 tablet = 1,000 mcg, By Mouth, Daily, 0 Refills, Maintenance, 03/27/23 14:31:00 EDT, Partial fill upon patient request if the prescription is for a schedule II opioid drug. Start Date: 03/27/23 Status: Ordered divalproex sodium 250 mg oral tablet, extended release = 750 mg, By Mouth, Daily, # 90 tablet, 0 Refills, Maintenance, 06/29/23 14:13:00 EDT, ER Tablet, [facility], Partial fill upon patient request if the prescription is for a schedule II opioid drug., 178, cm, 06/29/23 8:23:00 EDT, Height, 138... Start Date: 06/29/23 Status: Ordered duloxetine 30 mg oral enteric coated capsule = 30 mg, By Mouth, Daily, # 30 tablet, 0 Refills, Maintenance, 06/29/23 14:13:00 EDT, Capsule, [facility], Partial fill upon patient request if the prescription is for a schedule II opioid drug., 178, cm, 06/29/23 8:23:00 EDT, Height, 138.8,... Start Date: 06/29/23 Status: Ordered gabapentin 300 mg oral capsule 300 mg, By Mouth, 3 times a day, # 90 capsule, Refills 0, Tot. Refills 0, Maintenance, 06/29/23 14:13:00 EDT, Route to Pharmacy Electronically, [facility], Partial fill upon patient requestif the prescription is for a schedule II opioid kajal... Start Date: 06/29/23 Status: Ordered Lexapro 10 mg oral tablet 1 tablet = 10 mg, By Mouth, Daily, # 30 tablet, 0 Refills, Maintenance, 07/11/23 14:32:00 EST, Tablet, Partial fill upon patient request if the prescription is for a schedule II opioid drug. Start Date: 07/11/23 Status: Ordered methocarbamol 750 mg oral tablet 2 tablet = 1,500 mg, By Mouth, 3 times a day, 0 Refills, Maintenance, 03/27/23 14:37:00 EDT, Partial fill upon patient request if the prescription is for a schedule II opioid drug. Start Date: 03/27/23 Status: Ordered montelukast 10 mg oral tablet Refills 0, Maintenance, 02/27/23 15:02:00 EDT, Partial fill upon patient request if the prescription is for a schedule II opioid drug. Start Date: 02/27/23 Status: Ordered omeprazole 40 mg oral enteric coated capsule 1 capsule = 40 mg, By Mouth, Daily, # 30 capsule, 1 Refills, Maintenance, 02/27/23 15:17:00 EDT, ECCapsule, [facility], Partial fill upon patient request if the prescription is for a schedule II opioid drug., 175, cm, 02/27/23 14:56:00 EDT,... Start Date: 02/27/23 Status: Ordered perphenazine 2 mg oral tablet 4 mg, By Mouth, 3 times a day, # 90 tablet, Refills 0, Tot. Refills 0, Maintenance, 06/29/23 14:13:00 EDT, Route to Pharmacy Electronically, [facility], Partial fill upon patient request ifthe prescription is for a schedule II opioid drug.,... Start Date: 06/29/23 Status: Ordered prazosin 1 mg oral capsule 2 mg, By Mouth, Daily at bedtime, # 30 capsule, Refills 0, Tot. Refills 0, Maintenance, 06/29/23 14:13:00 EDT, Route to Pharmacy Electronically, [facility], Partial fill upon patient request if the prescription is for a schedule II opioid dr... Start Date: 06/29/23 Status: Ordered QUEtiapine 100 mg oral tablet 100 mg, By Mouth, 2 times a day, PRN, # 60 tablet, Refills 0, Tot. Refills 0, Maintenance, Anxiety,06/29/23 14:13:00 EDT, Route to Pharmacy Electronically, [facility], Partial fill upon patient request if the prescription is for a schedule... Start Date: 06/29/23 Status: Ordered QUEtiapine 400 mg oral tablet 1 tablet = 400 mg, By Mouth, Daily at bedtime, # 30 tablet, 0 Refills, Maintenance, 06/29/23 14:13:00 EDT, Tablet, [facility], Partial fill upon patient request if the prescription is for aschedule II opioid drug., 178, cm, 06/29/23 8:23:00... Start Date: 06/29/23 Status: Ordered Tylenol 8 Hour 650 mg oral tablet, extended release 2 tablet = 1,300 mg, By Mouth, Every 8 hours, # 180 tablet, 1 Refills, Maintenance, 07/11/23 15:44:00 EST, ER Tablet, [facility], Partial fill upon patient request if the prescription is for a schedule II opioid drug., 178, cm, 07/11/23 13:5... Start Date: 07/11/23 Status: Ordered Problem List Condition Confirmation Course [...] Effective Dates Health Status Clinical Service Informant Tendinitis of left rotator cuff Discharge Diagnosis 07/11/23 Morbid obesity Discharge Diagnosis 07/11/23 Cigarette smoker Discharge Diagnosis 07/11/23 Bipolar disorder, current episode mixed, severe, without psychotic features Discharge Diagnosis 07/11/23 Cluster B personality disorder Discharge Diagnosis 07/11/23 Post-traumatic stress disorder, chronic Discharge Diagnosis 07/11/23 Hospitalization within last 30 days Discharge Diagnosis 07/11/23 Osteoarthritis of knees, bilateral Discharge Diagnosis 07/11/23 HTN (hypertension) Discharge Diagnosis 07/11/23 Housing instability, housed, with risk of homelessness Discharge Diagnosis 07/11/23 Acute bronchitis Discharge Diagnosis 07/11/23 Vital Signs Most recent to oldest [Reference Range]: 1 Height 178 cm (07/11/23 1:58 PM) Weight 143.7 kg (07/11/23 1:58 PM) Oxygen Saturation [94-100 %] 99 % (07/11/23 1:58 PM) Pulse Rate [55-90 bpm] 97 bpm *H* (07/11/23 1:58 PM) Body Mass Index [18.5-24.99 kg/m2] 45.35 kg/m2 *>HHI* (07/11/23 1:58 PM) Blood Pressure [90-138/55-84 mm Hg] 158/ 98mm Hg *H* (07/11/23 1:58 PM) Respiratory Rate [16-30 br/min] 20 br/mi n (07/11/23 1:58 PM) Mode of Delivery (Oxygen) Room air (07/11/23 1:58 PM) Blood pressure sites Arm, left (07/11/23 1:58 PM) Weight Obtained Via Standing scale (07/11/23 1:58 PM) Social History Social History Type Response Smoking Status 10 or more cigarette s (1/2 pack or more)/day in last 30 days; Interested in cessation: Yes; Patient wants NRT during admission Yes; Other: 2 PPD currently; entered on: 07/15/23 Sex Note * Stephanie Costello: PERFORM, SIGN, VERIFY Event Display: Patient Education/Instruction Authored Date: [id number] [facility] *[facility] Clinical Summary Name PEGGY DEWEY Age 47 Years 1975 PCP Yevgeniy ÁLVAREZ, Polly Kapoor PCP Visit Date 07/11/2023 13:49:00 Additional Instructions: Scheduled Appointments?? Future Appointments ?No Future Appointments Scheduled Follow-Up Instructions ?? Diagnosis Medications: Please continue [...] Dose: Benztropine (benztropine 0.5 mg oral tablet) 1 tab(s) Oral 3 times a day. take with perphenazine. Refills: 0. Next Dose: Capsaicin Topical (capsaicin 0.025% topical cream) Topically 3 times a day. Next Dose: Clonazepam (clonazePAM 1 mg oral tablet) 1 Milligram Oral 3 times a day as needed Anxiety. Refills:0. Next Dose: Clonidine (cloNIDine 0.1 mg oral tablet) 0.1 Milligram Oral 3 times a day. Refills: 0. Next Dose: Cyanocobalamin (cyanocobalamin 1000 mcg oral tablet, extended release) 1 tab(s) Oral Daily. Next Dose: Cyclobenzaprine (cyclobenzaprine 10 mg oral tablet) 10 Milligram Oral 3 times a day as needed Pain , Moderate. Refills: 0. Next Dose: Divalproex Sodium (divalproex sodium 250 mg oral tablet, extended release) 750 Milligram Oral Daily. Refills: 0. Next Dose: Docusate (docusate sodium 100 mg oral capsule) Next Dose: Duloxetine (duloxetine 30 mg oral enteric coated capsule) 30 Milligram Oral Daily. Refills: 0. Next Dose: Durable Medical Equipment (L knee brace) For use d/t osteoarthritis. Refills: 0. Next Dose: fluticasone-vilanterol (Breo Ellipta 100 mcg-25 mcg/inh inhalation powder) Next Dose: Folic Acid (folic acid 1 mg oral tablet) 1 tab(s) Oral Daily. Next Dose: Formoterol 20 Microgram Inhalation twice a day. Next Dose: Gabapentin (gabapentin 300 mg oral capsule) 300 Milligram Oral 3 times a day. Refills: 0. Next Dose: HydrOXYzine (hydrOXYzine pamoate 50 mg oral capsule) Next Dose: Lidocaine Intravenous Infusion once. Next Dose: Loratadine (loratadine 10 mg oral tablet) 1 tab(s) Oral Daily. Next Dose: Methocarbamol (methocarbamol 750 mg oral tablet) 2 tab(s) Oral 3 times a day. Next Dose: Miscellaneous Rx (VITAMIN D3 CAP 1000UNIT) Next Dose: Miscellaneous Rx (VITAMIN D3 1000UNIT Capsules) Next Dose: Montelukast (montelukast 10 mg oral tablet) Next Dose: Naltrexone (naltrexone 50 mg oral tablet) Next Dose: Omeprazole (omeprazole 40 mg oral enteric coated capsule) 1 capsule Oral Daily. Refills: 1. Next Dose: Pantoprazole (pantoprazole 40 mg oral delayed release tablet) 1 tab(s) Oral Daily. Next Dose: Perphenazine (perphenazine 2 mg oral tablet) 4 Milligram Oral 3 times a day. Refills: 0. Next Dose: Prazosin (prazosin 1 mg oral capsule) 2 Milligram Oral Daily at Bedtime. Refills: 0. Next Dose: Quetiapine (QUEtiapine 100 mg oral tablet) 100 Milligram Oral twice a day as needed Anxiety. Refills: 0. Next Dose: Quetiapine (QUEtiapine 400 mg oral tablet) 1 tab(s) Oral Daily at Bedtime. Refills: 0. Next Dose: Thiamine (thiamine 100 mg oral tablet) Next Dose: Allergy Info:?? TraMADol Hydrochloride; PROzac; NSAIDs; Haldol; aspirin; codeine Medications Given This Visit Future Orders ?No future orders Vital Signs Height 178 cm Weight 143.7 kg BMI 45.35 kg/m2 Blood Pressure 158 mm Hg/98 mm Hg Temperature Pulse Rate 97 bpm Respiratory Rate 20 br/min 02 Sat Mode of Delivery 99 %/Room air You can now view a summary of your hospital visit from the comfort of your home through a free online portal called [employer]. [employer] is a website that allows you to securely view your medical information including discharge summary, medications and follow-up visits. ??You can alsosend a secure electronic message to your doctor???s office to request appointments, renew medications or just ask a question. You can enroll at [email or web address] or register during your next office visit. [...] primary care provider, you may find a [facility] provider by calling [facility] Link at [phone]. [facility], in keeping with [facility] guidance, no longer requires face masks for [...] Team Personnel Name: Hilda Escobar RN Position: [facility] RN Member Role: Primary Care Nurse Name: Mahendra Maria Position: S RN Member Role: Primary Care Nurse Name: Elvi Snyder RN Position: [facility] RN Member Role: Primary Care Nurse Name: Jeni Solorio RN Position: [facility] RN Member Role: Primary Care Nurse Name: Rebekah Delatorre RN Position: S RN Member Role: Primary Care Nurse Name: Polly Vuong MD, V Position: [facility] Physician - Primary Care Member Role: PCP Address: Address: [address] [place] [id number] Name: Cheryle Godinez Position: S RN Member Role: Primary Care Nurse Name: Sandi Hightower RN Position: S RN Member Role: Primary Care Nurse Name: Angelita Almeida RN Position: S RN Member Role: Primary Care Nurse Name: Mel Hidalgo RN Position: [facility] RN Member Role: Primary Care Nurse Name: Marcelino Fermin RN Position: S RN Member Role: Primary Care Nurse Name: Brenda Toscano NP Position: Reference Physician Member Role: Primary Care Nurse Address: Address: [address] [place] [address], [place] [address]- [place] Care Team Related Persons Name: KEY DEWEY Address: [place] [address] Name: AIDA DEWEY Address: home [address] [place] [id number] Name: NO, ONE
--- OUTSIDE RECORDS SUMMARY | 2023-09-19 10:29 | XMS_ITS | Continuity of Care Document ---
Author Name Unknown Organization [facility] Address [address] [place] [address]- Care Team Providers Care Integrated Specialist Name Role Phone Polly Vuong MD, V Primary Care Physician Encounter [facility] [place] Date(s): 06/27/23 - 07/30/23 [facility] [address] [place], [place] [address] Attending Physician: Polly Vuong MD, V Allergies, Adverse Reactions, Alerts Substance Reaction Severity Status codeine Active aspirin Active TraMADol Hydrochloride Activ e Haldol Active NSAIDs Active PROzac Active Immunizations Given and Recorded Vaccine Date Status Refusal Reason influenza virus vaccine, inactivated 07/17/23 Give n [id number] bivalent booster vax 06/21/22 Recorded tetanus/diphtheria/pertussis, acel(Tdap) 1 05/14/21 Given SARS-CoV-2 (COVID-19) Ad26 vaccine 2 02/15/21 Give n Influenza Virus Vaccine (oldterm) 06/11/20 Recorde d 1Result Comment: [facility] [id number] 2Result Comment: [facility] [id number] Medications albuterol CFC free 90 mcg/inh inhalation aerosol 180 mcg, 2, puffs, Inhalation, Every 6 hours, PRN, # 8 Gm, Refills 6, Tot. Refills 6, Maintenance, 07/28/23 16:23:00 EST, Inhaler, Route to Pharmacy Electronically, [id number], [facility] [id number] ([facility]), 175, cm, 07/26... Start Date: 07/28/23 Status: Ordered amLODIPine 10 mg oral tablet 1 tablet = 10 mg, By Mouth, Daily, # 90 tablet, 0 Refills, Maintenance, 07/26/23 10:51:00 EST, Tablet, [facility] ([facility]), Partial fill upon patient request if [...] Refills, Maintenance, 07/26/23 10:51:00 EST, Tablet, [facility] ([facility]), Partial fill upon patient request if the prescription is for a schedule II opioid drug., 175, cher, 07/26... Start Date: 07/26/23 Status: Ordered cloNIDine 0.1 mg oral tablet 0.1 mg, By Mouth, 3 times a day, PRN, # 90 tablet, Refills 0, Tot. Refills 0, Maintenance, Anxiety,07/26/23 10:51:00 EST, Route to Pharmacy Electronically, [id number] ([facility]), Partial fill upon patient request if the prescription is for... Start Date: 07/26/23 Status: Ordered cyanocobalamin 1000 mcg oral tablet, extended release 1 tablet = 1,000 mcg, By Mouth, Daily, # 30 tablet, 0 Refills, Maintenance, 07/26/23 10:51:00 EST, ER Tablet, [facility] ([facility]), Partial fill upon patient request if the prescription is for a schedule II opioid drug., 175, cher, 07/26/23... Start Date: 07/26/23 Status: Ordered cyclobenzaprine 10 mg oral tablet 10 mg, By Mouth, 3 times a day, PRN, # 24 each, Refills 0, Tot. Refills 0, Maintenance, Pain , Moderate, 07/26/23 10:47:00 EST, Route to Pharmacy Electronically, [facility] [address] (-[facility]), Partial fill upon patient request if the prescription i... Start Date: 07/26/23 Status: Ordered diclofenac 1% topical gel = 4 Gm, Topically, 4 times a day, to each knee. not to exceed 16 grams/day/single joint of lower extremities, # 480 Gm, 0 Refills, Maintenance, 07/26/23 10:51:00 EST, Gel, [facility] ([id number]), Partial fill upon patient request if the pr... Start Date: 07/26/23 Status: Ordered diclofenac 1% topical gel = 2 Gm, Topically, 4 times a day, to L shoulder not to exceed 8 grams/day/single joint of upper extremities, # 240 Gm, 0 Refills, Maintenance, 07/26/23 10:51:00 EST, Gel, [facility] (-[facility]), Partial fill upon patient request if the pre... Start Date: 07/26/23 Status: Ordered divalproex sodium 250 mg oral tablet, extended release = 750 mg, By Mouth, Daily, # 90 tablet, 0 Refills, Maintenance, 07/26/23 10:51:00 EST, ER Tablet, [facility] (-[facility]), Partial fill upon patient request if the prescription is for a schedule II opioid drug., 175, cm, 07/26/23 8:30:00 EST,... Start Date: 07/26/23 Status: Ordered fluticasone-vilanterol 100 mcg-25 mcg/inh inhalation powder 1 puffs, Inhalation, Daily, Rinse mouth after each use, # 1 each, 6 Refills, Maintenance, 07/28/23 16:22:00 EST, Inhaler, [facility] (-[facility]), Partial fill upon patient request if the prescription is for a schedule II opioid drug., 1 puff... Start Date: 07/28/23 Status: Ordered gabapentin 400 mg oral capsule 400 mg, By Mouth, 3 times a day, # 90 capsule, Refills 0, Tot. Refills 0, Maintenance, 07/26/23 10:51:00 EST, Route to Pharmacy Electronically, [facility] [address] ([place]), Partial fill upon patient request if the prescription is for a schedule I... Start Date: 07/26/23 Stop Date: 08/25/23 Status: Ordered hydrOXYzine pamoate 50 mg oral capsule = 50 mg, By Mouth, 3 times a day, PRN Anxiety, # 90 capsule, 0 Refills, Maintenance, 07/26/23 10:49:00 EST, Capsule, [facility] [address] (-[facility]), Partial fill upon patient request if the prescription is for a schedule II opioid drug., 175, cm, 11... Start Date: 07/26/23 Status: Ordered lidocaine 5% topical film 1 patch, Topically, Daily, PRN Pain , Mild, # 30 patch, 0 Refills, Maintenance, 07/26/23 10:44:00 EST, Patch, [facility] [address] ([place]), Partial fill upon patient request if the prescription is for a schedule II opioid drug., 1 patch Topically... Start Date: 07/26/23 Status: Ordered loratadine 10 mg oral tablet 10 mg, By Mouth, Daily, # 30 tablet, Refills 0, Tot. Refills 0, Maintenance, 07/26/23 10:45:00 EST,Route to Pharmacy Electronically, [facility] [address] ([facility]), Partial fill upon patient request if the prescription is for a schedule II opioid d... Start Date: 07/26/23 Status: Ordered melatonin 3 mg oral tablet = 3 mg, By Mouth, Daily at bedtime, PRN Sleep, for 30 days, Can repeate 1x, # 30 tablet, 0 Refills,Acute 08/25/23 10:50:00 EST, 07/26/23 10:50:00 EST, Tablet, [facility] [address] [facility]), Partial fill upon patient request if the prescription is... Start Date: 07/26/23 Stop Date: 08/25/23 Status: Ordered montelukast 10 mg oral tablet 10 mg, 1, tablet, By Mouth, Daily, # 30 tablet, Refills 0, Tot. Refills 0, Maintenance, 07/26/23 10:51:00 EST, Route to Pharmacy Electronically, [facility] ([place]), Partial fill upon patient request if the prescription is for a schedule... Start Date: 07/26/23 Stop Date: 08/25/23 Status: Ordered nicotine 21 mg/24 hr transdermal film, extended release 1 patch, Topically, Daily, # 30 patch, 0 Refills, Maintenance, 07/26/23 10:45:00 EST, Patch, [facility] [address]), Partial fill upon patient request if the prescription is for a schedule II opioid drug., 1 patch Topically Daily, 175, cm, 1... Start Date: 07/26/23 Status: Ordered omeprazole 40 mg oral enteric coated capsule 1 capsule = 40 mg, By Mouth, Daily, # 30 capsule, 1 Refills, Maintenance, 07/26/23 10:51:00 EST, ECCapsule, [facility] [address] [facility]), Partial fill upon patient request if the prescription isfor a schedule II opioid drug., 175, cm, 07/26/23 8... Start Date: 07/26/23 Status: Ordered oxyCODONE 5 mg oral tablet 5 mg, By Mouth, Every 6 hours, PRN, # 16 tablet, Refills 0, Tot. Refills 0, Maintenance, Pain , Severe, 07/26/23 10:50:00 EST, Route to Pharmacy Electronically, [facility] [address]), Partial fill upon patient request if the prescription is... Start Date: 07/26/23 Status: Ordered prazosin 1 mg oral capsule 2 mg, By Mouth, Daily at bedtime, # 30 capsule, Refills 0, Tot. Refills 0, Maintenance, 07/26/23 10:51:00 EST, Route to Pharmacy Electronically, [facility] [address] ([facility]), Partial fill upon patient request if the prescription is for a schedule... Start Date: 07/26/23 Status: Ordered predniSONE 10 mg oral tablet = 30 mg, By Mouth, Every 24 hours, # 3 tablet, 0 Refills, Maintenance, 07/31/23 7:00:00 EST, Tablet, [facility]), Partial fill upon patient request if the prescription is for a schedule II opioid drug., 175, cm, 07/26/23 8:30:00 E... Start Date: 07/31/23 Stop Date: 08/03/23 Status: Ordered predniSONE 10 mg oral tablet = 10 mg, By Mouth, Every 24 hours, # 3 tablet, 0 Refills, Maintenance, 08/06/23 7:00:00 EST, Tablet, [facility] ([facility]), Partial fill upon patient request if the prescription is for a schedule II opioid drug., 175, cher, 07/26/23 8:30:00 E... Start Date: 08/06/23 Stop Date: 08/09/23 Status: Ordered predniSONE 20 mg oral tablet = 40 mg, By Mouth, Every 24 hours, # 3 tablet, 0 Refills, Acute 07/31/23 7:00:00 EST, 07/28/23 7:00:00 EST, Tablet, [facility] ([facility]), Partial fill upon patient request if the prescription is for a schedule II opioid drug., 175, cher, ... Start Date: 07/28/23 Stop Date: 07/31/23 Status: Ordered predniSONE 20 mg oral tablet = 20 mg, By Mouth, Every 24 hours, # 3 tablet, 0 Refills, Acute 08/06/23 7:00:00 EST, 08/03/23 7:00:00 EST, Tablet, [facility] [address] ([facility]), Partial fill upon patient request if the prescription is for a schedule II opioid drug., Chris, cher, ... Start Date: 08/03/23 Stop Date: 08/06/23 Status: Ordered predniSONE 50 mg oral tablet = 50 mg, By Mouth, Once, # 1 each, 0 Refills, Soft Stop, 07/27/23 7:00:00 EST, Tablet, [facility] ([facility]), Partial fill upon patient request if the prescription is for a schedule II opioid drug., 175, chre, 07/26/23 8:30:00 EST, Height, 14... Start Date: 07/27/23 Status: Ordered QUEtiapine 100 mg oral tablet 100 mg, By Mouth, 2 times a day, PRN, # 60 tablet, Refills 0, Tot. Refills 0, Maintenance, Anxiety,07/26/23 10:51:00 EST, Route to Pharmacy Electronically, [facility] ([place]), Partial fill upon patient request if the prescription is for... Start Date: 07/26/23 Status: Ordered QUEtiapine 400 mg oral tablet 1 tablet = 400 mg, By Mouth, Daily at bedtime, # 30 tablet, 0 Refills, Maintenance, 07/26/23 10:51:00 EST, Tablet, [facility]), Partial fill upon patient request if the prescription is for a schedule II opioid drug., 175, cm, 06/29... Start Date: 07/26/23 Status: Ordered Tiotropium Inhalation, Daily, 0 Refills, Maintenance, 07/26/23 10:45:00 EST, Inhaler, Partial fill upon patient request if the prescription is for a schedule II opioid drug. Start Date: 07/26/23 Status: Ordered Tums 500 mg oral tablet, chewable 500 mg, 1, tablet, Chew, Every 4 hours, PRN, # 60 tablet, Refills 0, Tot. Refills 0, Maintenance, Dyspepsia, 07/26/23 10:47:00 EST, Route to Pharmacy Electronically, [facility]Partial fill upon patient request if the prescripti... Start Date: 07/26/23 Status: Ordered Tylenol 8 Hour 650 mg oral tablet, extended release 2 tablet = 1,300 mg, By Mouth, Every 8 hours, # 180 tablet, 1 Refills, Maintenance, 07/11/23 15:44:00 EST, ER Tablet, [facility], Partial fill upon patient request if the prescription is for a schedule II opioid drug., 178, cm, 07/11/23 13:5... Start Date: 07/11/23 Status: Ordered Vitamin D3 1000 intl units oral capsule 1 capsule = 25 mcg, By Mouth, Daily, # 30 capsule, 0 Refills, Maintenance, 07/26/23 10:51:00 EST, Capsule, [facility]), Partial fill upon patient request if [...] Team Personnel Name: Shane Christie RN Position: [facility] RN Member Role: Primary Care Nurse Name: Hilda Escobar RN Position: [facility] RN Member Role: Primary Care Nurse Name: Mahendra Maria Position: [facility] RN Member Role: Primary Care Nurse Name: Danika Connor RN Position: [facility] RN Member Role: Primary Care Nurse Name: Jeni Solorio RN Position: [facility] RN Member Role: Primary Care Nurse Name: Rebekah Delatorre RN Position: [facility] RN Member Role: Primary Care Nurse Name: Polly Vuong MD, V Position: [facility] Physician - Primary Care Member Role: PCP Address: Address: [address] [place] [address] Name: Cheryle Godinez Position: [facility] RN Member Role: Primary Care Nurse Name: Scooter Locke RN Position: [facility] RN Member Role: Primary Care Nurse Name: Sandi Hightower RN Position: [facility] RN Member Role: Primary Care Nurse Name: Angelita Almeida RN Position: [facility] RN Member Role: Primary Care Nurse Name: Citlali Reilly Position: [facility] RN Member Role: Primary Care Nurse Name: Tiny Pettit RN Position: [facility] RN Member Role: Primary Care Nurse Name: Mel Hidalgo RN Position: [facility] RN Member Role: Primary Care Nurse Name: Marcelino Fermin RN Position: [facility] RN Member Role: Primary Care Nurse Name: Brenda Toscano NP Position: Reference Physician Member Role: Primary Care Nurse Address: Address: [address] [place] [address], [place] [address]- Care Team Related Persons Name: KEY DEWEY Address: [place] [address] Name: AIDA DEWEY Address: home [address] [place] [id number] Name: NO, ONE
--- OUTSIDE RECORDS SUMMARY | 2023-09-19 10:30 | XMS_ITS | Continuity of Care Document ---
Author Name Unknown Organization [facility] Address [address] [place] [address]- Care Team Providers Care Dobie Man Name Role Phone Yevgeniy ÁLVAREZ, Polly Kapoor Primary Care Physician Encounter [facility] Date(s): 08/02/23 - 09/01/23 [facility] [address] [place], [place] [address] Allergies, Adverse Reactions, Alerts Substance Reaction Severity Status codeine Active aspirin Active NSAIDs Active TraMADol Hydrochloride Activ e Haldol Active PROzac Active Immunizations Given and Recorded Vaccine Date Status Refusal Reason influenza virus vaccine, inactivated 07/17/23 Give n [id number] bivalent booster vax 06/21/22 Recorded tetanus/diphtheria/pertussis, acel(Tdap) 1 05/14/21 Given SARS-CoV-2 (COVID-19) Ad26 vaccine 2 02/15/21 Give n Influenza Virus Vaccine (oldterm) 06/11/20 Recorde d 1Result Comment: [facility] [id number] 2Result Comment: [facility] [id number] Medications albuterol CFC free 90 mcg/inh inhalation aerosol 180 mcg, 2, puffs, Inhalation, Every 6 hours, PRN, # 8 Gm, Refills 6, Tot. Refills 6, Maintenance, 07/31/23 12:32:00 EST, Inhaler, Route to Pharmacy Electronically, [id number], [facility] ([facility] 827), 175, cm, 07/26... Start Date: 07/31/23 Status: Ordered amLODIPine 10 mg oral tablet 1 tablet = 10 mg, By Mouth, Daily, # 90 tablet, 0 Refills, Maintenance, 07/26/23 10:51:00 EST, Tablet, [facility] ([facility]), Partial fill upon patient request if [...] Refills, Maintenance, 07/26/23 10:51:00 EST, Tablet, [facility] ([facility]), Partial fill upon patient request if the prescription is for a schedule II opioid drug., 175, cm, 07/26... Start Date: 07/26/23 Status: Ordered cloNIDine 0.1 mg oral tablet 0.1 mg, By Mouth, 3 times a day, PRN, # 90 tablet, Refills 0, Tot. Refills 0, Maintenance, Anxiety,07/26/23 10:51:00 EST, Route to Pharmacy Electronically, [facility] ([facility]), Partial fill upon patient request if the prescription is for... Start Date: 07/26/23 Status: Ordered cyanocobalamin 1000 mcg oral tablet, extended release 1 tablet = 1,000 mcg, By Mouth, Daily, # 90 tablet, 3 Refills, Maintenance, 08/11/23 12:10:00 EST, ER Tablet, [facility] ([facility]), Partial fill upon patient request if the prescription is for a schedule II opioid drug., 175, cm, 07/26/23... Start Date: 08/11/23 Status: Ordered cyclobenzaprine 10 mg oral tablet 10 mg, By Mouth, 3 times a day, PRN, # 24 each, Refills 1, Tot. Refills 1, Maintenance, Pain , Moderate, 08/11/23 16:09:00 EST, Route to Pharmacy Electronically, [facility] ([facility]), Partial fill upon patient request if the prescription i... Start Date: 08/11/23 Status: Ordered diclofenac 1% topical gel = 4 Gm, Topically, 4 times a day, to each knee. not to exceed 16 grams/day/single joint of lower extremities, # 480 Gm, 0 Refills, Maintenance, 07/26/23 10:51:00 EST, Gel, [facility] ([facility]), Partial fill upon patient request if the pr... Start Date: 07/26/23 Status: Ordered diclofenac 1% topical gel = 2 Gm, Topically, 4 times a day, to L shoulder not to exceed 8 grams/day/single joint of upper extremities, # 240 Gm, 0 Refills, Maintenance, 07/26/23 10:51:00 EST, Gel, [facility] ([facility]), Partial fill upon patient request if the pre... Start Date: 07/26/23 Status: Ordered Diflucan 150 mg oral tablet See Instructions, 1 tablet By Mouth Once, repeat in 72 hours if no resolution of discharge., # 2 tablet, 0 Refills, Maintenance, 08/31/23 17:20:00 EST, Tablet, [facility]/pharmacy #1893, Partial fill upon patient request if the prescription is for a schedule... Start Date: 08/31/23 Status: Ordered divalproex sodium 250 mg oral tablet, extended release = 750 mg, By Mouth, Daily, # 90 tablet, 0 Refills, Maintenance, 07/26/23 10:51:00 EST, ER Tablet, [facility] ([facility]), Partial fill upon patient request if the prescription is for a schedule II opioid drug., 175, cm, 07/26/23 8:30:00 EST,... Start Date: 07/26/23 Status: Ordered fluticasone-vilanterol 100 mcg-25 mcg/inh inhalation powder 1 puffs, Inhalation, Daily, Rinse mouth after each use, # 1 each, 6 Refills, Maintenance, 07/31/23 12:33:00 EST, Inhaler, [facility] ([facility]), Partial fill upon patient request if the prescription is for a schedule II opioid drug., 1 puff... Start Date: 07/31/23 Status: Ordered gabapentin 400 mg oral capsule 400 mg, By Mouth, 3 times a day, # 90 capsule, Refills 0, Tot. Refills 0, Maintenance, 07/26/23 10:51:00 EST, Route to Pharmacy Electronically, [facility] ([facility]), Partial fill upon patient request if the prescription is for a schedule I... Start Date: 07/26/23 Stop Date: 08/25/23 Status: Ordered hydrOXYzine pamoate 50 mg oral capsule = 50 mg, By Mouth, 3 times a day, PRN Anxiety, # 90 capsule, 0 Refills, Maintenance, 07/26/23 10:49:00 EST, Capsule, [facility] ([facility]), Partial fill upon patient request if the prescription is for a schedule II opioid drug., 175, cm, 11... Start Date: 07/26/23 Status: Ordered lidocaine 5% topical film 1 patch, Topically, Daily, PRN Pain , Mild, # 30 patch, 0 Refills, Maintenance, 07/26/23 10:44:00 EST, Patch, [facility] ([facility]), Partial fill upon patient request if the prescription is for a schedule II opioid drug., 1 patch Topically... Start Date: 07/26/23 Status: Ordered loratadine 10 mg oral tablet 10 mg, By Mouth, Daily, # 30 tablet, Refills 0, Tot. Refills 0, Maintenance, 07/26/23 10:45:00 EST,Route to Pharmacy Electronically, [facility] ([facility]), Partial fill upon patient request if the prescription is for a schedule II opioid d... Start Date: 07/26/23 Status: Ordered montelukast 10 mg oral tablet 10 mg, 1, tablet, By Mouth, Daily, # 30 tablet, Refills 0, Tot. Refills 0, Maintenance, 07/26/23 10:51:00 EST, Route to Pharmacy Electronically, [facility] ([facility]), Partial fill upon patient request if the prescription is for a schedule... Start Date: 07/26/23 Stop Date: 08/25/23 Status: Ordered Mucinex 600 mg oral tablet, extended release 1 tablet = 600 mg, By Mouth, Every 12 hours, for 7 days, # 14 tablet, 0 Refills, Acute 09/07/23 17:21:00 EST, 08/31/23 17:21:00 EST, ER Tablet, [facility]/pharmacy #1893, Partial fill upon patient request if the prescription is for a schedule II opioid drug.... Start Date: 08/31/23 Stop Date: 09/07/23 Status: Ordered nicotine 21 mg/24 hr transdermal film, extended release 1 patch, Topically, Daily, # 30 patch, 0 Refills, Maintenance, 07/26/23 10:45:00 EST, Patch, [facility] ([facility]), Partial fill upon patient request if the prescription is for a schedule II opioid drug., 1 patch Topically Daily, 175, cm, 1... Start Date: 07/26/23 Status: Ordered omeprazole 40 mg oral enteric coated capsule 1 capsule = 40 mg, By Mouth, Daily, # 30 capsule, 1 Refills, Maintenance, 07/26/23 10:51:00 EST, ECCapsule, [facility] ([facility]), Partial fill upon patient request if the prescription isfor a schedule II opioid drug., 175, cm, 07/26/23 8... Start Date: 07/26/23 Status: Ordered oxyCODONE 5 mg oral tablet 5 mg, By Mouth, Every 6 hours, PRN, # 16 tablet, Refills 0, Tot. Refills 0, Maintenance, Pain , Severe, 07/26/23 10:50:00 EST, Route to Pharmacy Electronically, [facility] ([facility]), Partial fill upon patient request if the prescription is... Start Date: 07/26/23 Status: Ordered prazosin 1 mg oral capsule 2 mg, By Mouth, Daily at bedtime, # 30 capsule, Refills 0, Tot. Refills 0, Maintenance, 08/08/23 16:57:00 EST, Route to Pharmacy Electronically, [facility] ([facility]), Partial fill upon patient request if the prescription is for a schedule... Start Date: 08/08/23 Status: Ordered predniSONE 10 mg oral tablet = 30 mg, By Mouth, Every 24 hours, # 3 tablet, 0 Refills, Maintenance, 07/31/23 7:00:00 EST, Tablet, [facility] ([facility]), Partial fill upon patient request if the prescription is for a schedule II opioid drug., 175, cm, 07/26/23 8:30:00 E... Start Date: 07/31/23 Stop Date: 08/03/23 Status: Ordered predniSONE 10 mg oral tablet = 10 mg, By Mouth, Every 24 hours, # 3 tablet, 0 Refills, Maintenance, 08/06/23 7:00:00 EST, Tablet, [facility] ([facility]), Partial fill upon patient request if the prescription is for a schedule II opioid drug., 175, cm, 07/26/23 8:30:00 E... Start Date: 08/06/23 Stop Date: 08/09/23 Status: Ordered predniSONE 50 mg oral tablet = 50 mg, By Mouth, Once, # 1 each, 0 Refills, Soft Stop, 07/27/23 7:00:00 EST, Tablet, [facility] ([facility]), Partial fill upon patient request if the prescription is for a schedule II opioid drug., 175, cm, 07/26/23 8:30:00 EST, Height, 14... Start Date: 07/27/23 Status: Ordered QUEtiapine 100 mg oral tablet 100 mg, By Mouth, 2 times a day, PRN, # 60 tablet, Refills 0, Tot. Refills 0, Maintenance, Anxiety,07/26/23 10:51:00 EST, Route to Pharmacy Electronically, [facility] ([facility]), Partial fill upon patient request if the prescription is for... Start Date: 07/26/23 Status: Ordered QUEtiapine 400 mg oral tablet 1 tablet = 400 mg, By Mouth, Daily at bedtime, # 30 tablet, 0 Refills, Maintenance, 07/26/23 10:51:00 EST, Tablet, [facility] ([facility]), Partial fill upon patient request if the prescription is for a schedule II opioid drug., 175cher, 06/29... Start Date: 07/26/23 Status: Ordered tiotropium 1.25 mcg/inh inhalation aerosol 2 puffs = 2.5 mcg, Inhalation, Daily, # 1 each, 6 Refills, Maintenance, 07/31/23 12:33:00 EST, Aerosol, [facility] ([facility]), Partial fill upon patient request if the prescription is for a schedule II opioid drug., 175, cher, 07/26/23 8:30:0... Start Date: 07/31/23 Status: Ordered Tums 500 mg oral tablet, chewable 500 mg, 1, tablet, Chew, Every 4 hours, PRN, # 60 tablet, Refills 0, Tot. Refills 0, Maintenance, Dyspepsia, 07/26/23 10:47:00 EST, Route to Pharmacy Electronically, [facility] ([facility]),Partial fill upon patient request if the [...] 0 Refills, Maintenance, 07/26/23 10:51:00 EST, Capsule, [facility] ([facility]), Partial fill upon patient request if [...] Care Nurse Name: Rebekah Delatorre RN Position: [facility] RN Member Role: Primary Care Nurse Name: Polly Vuong MD, V Position: S Physician - Primary Care Member Role: PCP Address: Address: [address] [place] [address]- [place] Name: Scooter Locke RN Position: [facility] RN Member Role: Primary Care Nurse Name: Sandi Hightower RN Position: S RN Member Role: Primary Care Nurse Name: Angelita Almeida RN Position: S RN Member Role: Primary Care Nurse Name: Citlali Reilly Position: S RN Member Role: Primary Care Nurse Name: Tiny Pettit RN Position: S RN Member Role: Primary Care Nurse Name: Marcelino Fermin RN Position: S RN Member Role: Primary Care Nurse Name: Brenda Toscano NP Position: Reference Physician Member Role: Primary Care Nurse Address: Address: [address] [place] [address]- Care Team Related Persons Name: KEY DEWEY Address: [place] [address] Name: AIDA DEWEY Address: home [address] [place] [id number] Name: NO, ONE
--- OUTSIDE RECORDS SUMMARY | 2023-09-19 10:30 | XMS_ITS | Continuity of Care Document ---
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 Phone Yevgeniy ÁLVAREZ, Polly Kapoor Primary Care Physician Encounter [facility] Date(s): 08/02/23 - 09/01/23 [facility] [address] [place], [place] [address] Allergies, Adverse Reactions, Alerts Substance Reaction Severity Status codeine Active aspirin Active Haldol Active NSAIDs Active PROzac Active TraMADol Hydrochloride Activ e Immunizations Given and Recorded Vaccine Date Status Refusal Reason influenza virus vaccine, inactivated 07/17/23 Give n [id number] bivalent booster vax 06/21/22 Recorded tetanus/diphtheria/pertussis, acel(Tdap) 1 05/14/21 Given SARS-CoV-2 (COVID-19) Ad26 vaccine 2 02/15/21 Give n Influenza Virus Vaccine (oldterm) 06/11/20 Recorde d 1Result Comment: [facility] [id number] 2Result Comment: [facility] 72053-616-48 Medications albuterol CFC free 90 mcg/inh inhalation aerosol 180 mcg, 2, puffs, Inhalation, Every 6 hours, PRN, # 8 Gm, Refills 6, Tot. Refills 6, Maintenance, 07/31/23 12:32:00 EST, Inhaler, Route to Pharmacy Electronically, [id number], [facility] [address] ([facility] 827), 175, cm, 07/26... Start Date: 07/31/23 Status: Ordered amLODIPine 10 mg oral tablet 1 tablet = 10 mg, By Mouth, Daily, # 90 tablet, 0 Refills, Maintenance, 07/26/23 10:51:00 EST, Tablet, [facility] ([facility]), Partial fill upon patient request if [...] Refills, Maintenance, 07/26/23 10:51:00 EST, Tablet, [facility] ([facility]), Partial fill upon patient request if the prescription is for a schedule II opioid drug., 175, cm, 07/26... Start Date: 07/26/23 Status: Ordered cloNIDine 0.1 mg oral tablet 0.1 mg, By Mouth, 3 times a day, PRN, # 90 tablet, Refills 0, Tot. Refills 0, Maintenance, Anxiety,07/26/23 10:51:00 EST, Route to Pharmacy Electronically, [facility] ([facility]), Partial fill upon patient request if the prescription is for... Start Date: 07/26/23 Status: Ordered cyanocobalamin 1000 mcg oral tablet, extended release 1 tablet = 1,000 mcg, By Mouth, Daily, # 90 tablet, 3 Refills, Maintenance, 08/11/23 12:10:00 EST, ER Tablet, [facility] ([facility]), Partial fill upon patient request if the prescription is for a schedule II opioid drug., 175, cm, 07/26/23... Start Date: 08/11/23 Status: Ordered cyclobenzaprine 10 mg oral tablet 10 mg, By Mouth, 3 times a day, PRN, # 24 each, Refills 1, Tot. Refills 1, Maintenance, Pain , Moderate, 08/11/23 16:09:00 EST, Route to Pharmacy Electronically, [facility] ([facility]), Partial fill upon patient request if the prescription i... Start Date: 08/11/23 Status: Ordered diclofenac 1% topical gel = 4 Gm, Topically, 4 times a day, to each knee. not to exceed 16 grams/day/single joint of lower extremities, # 480 Gm, 0 Refills, Maintenance, 07/26/23 10:51:00 EST, Gel, [facility] ([facility]), Partial fill upon patient request if the pr... Start Date: 07/26/23 Status: Ordered diclofenac 1% topical gel = 2 Gm, Topically, 4 times a day, to L shoulder not to exceed 8 grams/day/single joint of upper extremities, # 240 Gm, 0 Refills, Maintenance, 07/26/23 10:51:00 EST, Gel, [facility] ([facility]), Partial fill upon patient request if the pre... Start Date: 07/26/23 Status: Ordered Diflucan 150 mg oral tablet See Instructions, 1 tablet By Mouth Once, repeat in 72 hours if no resolution of discharge., # 2 tablet, 0 Refills, Maintenance, 08/31/23 17:20:00 EST, Tablet, [facility]/pharmacy #1893, Partial fill upon patient request if the prescription is for a schedule... Start Date: 08/31/23 Status: Ordered divalproex sodium 250 mg oral tablet, extended release = 750 mg, By Mouth, Daily, # 90 tablet, 0 Refills, Maintenance, 07/26/23 10:51:00 EST, ER Tablet, [facility] ([facility]), Partial fill upon patient request if the prescription is for a schedule II opioid drug., 175, cm, 07/26/23 8:30:00 EST,... Start Date: 07/26/23 Status: Ordered fluticasone-vilanterol 100 mcg-25 mcg/inh inhalation powder 1 puffs, Inhalation, Daily, Rinse mouth after each use, # 1 each, 6 Refills, Maintenance, 07/31/23 12:33:00 EST, Inhaler, [facility] ([employer]), Partial fill upon patient request if the prescription is for a schedule II opioid drug., 1 puff... Start Date: 07/31/23 Status: Ordered gabapentin 400 mg oral capsule 400 mg, By Mouth, 3 times a day, # 90 capsule, Refills 0, Tot. Refills 0, Maintenance, 07/26/23 10:51:00 EST, Route to Pharmacy Electronically, [facility] [address] ([facility] [employer]), Partial fill upon patient request if the prescription is for a schedule I... Start Date: 07/26/23 Stop Date: 08/25/23 Status: Ordered hydrOXYzine pamoate 50 mg oral capsule = 50 mg, By Mouth, 3 times a day, PRN Anxiety, # 90 capsule, 0 Refills, Maintenance, 07/26/23 10:49:00 EST, Capsule, [facility] 3[address] ([facility] [employer]), Partial fill upon patient request if the prescription is for a schedule II opioid drug., 175, cm, 11... Start Date: 07/26/23 Status: Ordered lidocaine 5% topical film 1 patch, Topically, Daily, PRN Pain , Mild, # 30 patch, 0 Refills, Maintenance, 07/26/23 10:44:00 EST, Patch, [facility] 97[facility] ([employer] [employer]), Partial fill upon patient request if the prescription is for a schedule II opioid drug., 1 patch Topically... Start Date: 07/26/23 Status: Ordered loratadine 10 mg oral tablet 10 mg, By Mouth, Daily, # 30 tablet, Refills 0, Tot. Refills 0, Maintenance, 07/26/23 10:45:00 EST,Route to Pharmacy Electronically, [facility] [address] ([facility] [employer]), Partial fill upon patient request if the prescription is for a schedule II opioid d... Start Date: 07/26/23 Status: Ordered montelukast 10 mg oral tablet 10 mg, 1, tablet, By Mouth, Daily, # 30 tablet, Refills 0, Tot. Refills 0, Maintenance, 07/26/23 10:51:00 EST, Route to Pharmacy Electronically, [facility] [address] ([facility]), Partial fill upon patient request if the prescription is for a schedule... Start Date: 07/26/23 Stop Date: 08/25/23 Status: Ordered Mucinex 600 mg oral tablet, extended release 1 tablet = 600 mg, By Mouth, Every 12 hours, for 7 days, # 14 tablet, 0 Refills, Acute 09/07/23 17:21:00 EST, 08/31/23 17:21:00 EST, ER Tablet, [facility]/pharmacy #1893, Partial fill upon patient request if the prescription is for a schedule II opioid drug.... Start Date: 08/31/23 Stop Date: 09/07/23 Status: Ordered nicotine 21 mg/24 hr transdermal film, extended release 1 patch, Topically, Daily, # 30 patch, 0 Refills, Maintenance, 07/26/23 10:45:00 EST, Patch, [facility] ([facility]), Partial fill upon patient request if the prescription is for a schedule II opioid drug., 1 patch Topically Daily, 175, cm, 1... Start Date: 07/26/23 Status: Ordered omeprazole 40 mg oral enteric coated capsule 1 capsule = 40 mg, By Mouth, Daily, # 30 capsule, 1 Refills, Maintenance, 07/26/23 10:51:00 EST, ECCapsule, [facility] ([facility]), Partial fill upon patient request if the prescription isfor a schedule II opioid drug., 175, cm, 07/26/23 8... Start Date: 07/26/23 Status: Ordered oxyCODONE 5 mg oral tablet 5 mg, By Mouth, Every 6 hours, PRN, # 16 tablet, Refills 0, Tot. Refills 0, Maintenance, Pain , Severe, 07/26/23 10:50:00 EST, Route to Pharmacy Electronically, [facility] ([facility]), Partial fill upon patient request if the prescription is... Start Date: 07/26/23 Status: Ordered prazosin 1 mg oral capsule 2 mg, By Mouth, Daily at bedtime, # 30 capsule, Refills 0, Tot. Refills 0, Maintenance, 08/08/23 16:57:00 EST, Route to Pharmacy Electronically, [facility] ([facility]), Partial fill upon patient request if the prescription is for a schedule... Start Date: 08/08/23 Status: Ordered predniSONE 10 mg oral tablet = 30 mg, By Mouth, Every 24 hours, # 3 tablet, 0 Refills, Maintenance, 07/31/23 7:00:00 EST, Tablet, [facility] ([facility]), Partial fill upon patient request if the prescription is for a schedule II opioid drug., 175, cm, 07/26/23 8:30:00 E... Start Date: 07/31/23 Stop Date: 08/03/23 Status: Ordered predniSONE 10 mg oral tablet = 10 mg, By Mouth, Every 24 hours, # 3 tablet, 0 Refills, Maintenance, 08/06/23 7:00:00 EST, Tablet, [facility] ([facility]), Partial fill upon patient request if the prescription is for a schedule II opioid drug., 175, cm, 07/26/23 8:30:00 E... Start Date: 08/06/23 Stop Date: 08/09/23 Status: Ordered predniSONE 50 mg oral tablet = 50 mg, By Mouth, Once, # 1 each, 0 Refills, Soft Stop, 07/27/23 7:00:00 EST, Tablet, [facility] ([facility]), Partial fill upon patient request if the prescription is for a schedule II opioid drug., 175, cm, 07/26/23 8:30:00 EST, Height, 14... Start Date: 07/27/23 Status: Ordered QUEtiapine 100 mg oral tablet 100 mg, By Mouth, 2 times a day, PRN, # 60 tablet, Refills 0, Tot. Refills 0, Maintenance, Anxiety,07/26/23 10:51:00 EST, Route to Pharmacy Electronically, [facility] ([facility]), Partial fill upon patient request if the prescription is for... Start Date: 07/26/23 Status: Ordered QUEtiapine 400 mg oral tablet 1 tablet = 400 mg, By Mouth, Daily at bedtime, # 30 tablet, 0 Refills, Maintenance, 07/26/23 10:51:00 EST, Tablet, [facility] ([facility]), Partial fill upon patient request if the prescription is for a schedule II opioid drug., 175cher, 06/29... Start Date: 07/26/23 Status: Ordered tiotropium 1.25 mcg/inh inhalation aerosol 2 puffs = 2.5 mcg, Inhalation, Daily, # 1 each, 6 Refills, Maintenance, 07/31/23 12:33:00 EST, Aerosol, [facility] ([facility]), Partial fill upon patient request if the prescription is for a schedule II opioid drug., 175, cher, 07/26/23 8:30:0... Start Date: 07/31/23 Status: Ordered Tums 500 mg oral tablet, chewable 500 mg, 1, tablet, Chew, Every 4 hours, PRN, # 60 tablet, Refills 0, Tot. Refills 0, Maintenance, Dyspepsia, 07/26/23 10:47:00 EST, Route to Pharmacy Electronically, [facility] ([facility]),Partial fill upon patient request if the [...] 0 Refills, Maintenance, 07/26/23 10:51:00 EST, Capsule, [facility] [address] ([facility] 827), Partial fill upon patient request if [...] Care Nurse Name: Rebekah Delatorre RN Position: [facility] RN Member Role: Primary Care Nurse Name: Polly Vuong MD, V Position: S Physician - Primary Care Member Role: PCP Address: Address: [address] [place] [address]- [place] Name: Scooter Locke RN Position: [facility] RN Member Role: Primary Care [...] Member Role: Primary Care Nurse Address: Address: [address] [place] [id number]- Care Team Related Persons Name: KEY DEWEY Address: [place] [address] Name: AIDA DEWEY Address: home [address] [place] [id number] Name: NO, ONE
--- OUTSIDE RECORDS SUMMARY | 2023-09-19 10:30 | XMS_ITS | Continuity of Care Document ---
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 Phone Yevgeniy ÁLVAREZ, Polly Kapoor Primary Care Physician Encounter [facility] [place](s): 08/07/23 - 09/06/23 [facility] [address] [place], [place] [address] Allergies, Adverse Reactions, Alerts Substance Reaction Severity Status codeine Active aspirin Active TraMADol Hydrochloride Activ e PROzac Active Haldol Active NSAIDs Active Immunizations Given and Recorded Vaccine Date Status Refusal Reason influenza virus vaccine, inactivated 07/17/23 Give n [id number] bivalent booster vax 06/21/22 Recorded tetanus/diphtheria/pertussis, acel(Tdap) 1 05/14/21 Given SARS-CoV-2 (COVID-19) Ad26 vaccine 2 02/15/21 Give n Influenza Virus Vaccine (oldterm) 06/11/20 Recorde d 1Result Comment: [facility] [id number] 2Result Comment: [facility] [id number] Medications albuterol CFC free 90 mcg/inh inhalation aerosol 180 mcg, 2, puffs, Inhalation, Every 6 hours, PRN, # 8 Gm, Refills 6, Tot. Refills 6, Maintenance, 07/31/23 12:32:00 EST, Inhaler, Route to Pharmacy Electronically, [id number], [facility] [id number] ([facility]), 175, cm, 07/26... Start Date: 07/31/23 Status: Ordered amLODIPine 10 mg oral tablet 1 tablet = 10 mg, By Mouth, Daily, # 90 tablet, 0 Refills, Maintenance, 07/26/23 10:51:00 EST, Tablet, [facility] ([email or web address]), Partial fill upon patient request if [...] Refills, Maintenance, 07/26/23 10:51:00 EST, Tablet, [facility] ([email or web address]), Partial fill upon patient request if the prescription is for a schedule II opioid drug., 175, cm, 07/26... Start Date: 07/26/23 Status: Ordered cloNIDine 0.1 mg oral tablet 0.1 mg, By Mouth, 3 times a day, PRN, # 90 tablet, Refills 0, Tot. Refills 0, Maintenance, Anxiety,07/26/23 10:51:00 EST, Route to Pharmacy Electronically, [id number] ([email or web address]), Partial fill upon patient request if the prescription is for... Start Date: 07/26/23 Status: Ordered cyanocobalamin 1000 mcg oral tablet, extended release 1 tablet = 1,000 mcg, By Mouth, Daily, # 90 tablet, 3 Refills, Maintenance, 08/11/23 12:10:00 EST, ER Tablet, [facility] ([email or web address]), Partial fill upon patient request if the prescription is for a schedule II opioid drug., 175, cm, 07/26/23... Start Date: 08/11/23 Status: Ordered cyclobenzaprine 10 mg oral tablet 10 mg, By Mouth, 3 times a day, PRN, # 24 each, Refills 1, Tot. Refills 1, Maintenance, Pain , Moderate, 08/11/23 16:09:00 EST, Route to Pharmacy Electronically, [facility] ([email or web address]), Partial fill upon patient request if the prescription i... Start Date: 08/11/23 Status: Ordered diclofenac 1% topical gel = 4 Gm, Topically, 4 times a day, to each knee. not to exceed 16 grams/day/single joint of lower extremities, # 480 Gm, 0 Refills, Maintenance, 07/26/23 10:51:00 EST, Gel, [facility] ([email or web address]), Partial fill upon patient request if the pr... Start Date: 07/26/23 Status: Ordered diclofenac 1% topical gel = 2 Gm, Topically, 4 times a day, to L shoulder not to exceed 8 grams/day/single joint of upper extremities, # 240 Gm, 0 Refills, Maintenance, 07/26/23 10:51:00 EST, Gel, [facility] ([email or web address]), Partial fill upon patient request if the pre... Start Date: 07/26/23 Status: Ordered Diflucan 150 mg oral tablet See Instructions, 1 tablet By Mouth Once, repeat in 72 hours if no resolution of discharge., # 2 tablet, 0 Refills, Maintenance, 08/31/23 17:20:00 EST, Tablet, [facility]/pharmacy #[id number], Partial fill upon patient request if the prescription is for a schedule... Start Date: 08/31/23 Status: Ordered divalproex sodium 250 mg oral tablet, extended release = 750 mg, By Mouth, Daily, # 90 tablet, 0 Refills, Maintenance, 07/26/23 10:51:00 EST, ER Tablet, [facility] ([email or web address]), Partial fill upon patient request if the prescription is for a schedule II opioid drug., 175, cm, 07/26/23 8:30:00 EST,... Start Date: 07/26/23 Status: Ordered fluticasone-vilanterol 100 mcg-25 mcg/inh inhalation powder 1 puffs, Inhalation, Daily, Rinse mouth after each use, # 1 each, 6 Refills, Maintenance, 07/31/23 12:33:00 EST, Inhaler, [facility] ([facility]), Partial fill upon patient request if the prescription is for a schedule II opioid drug., 1 puff... Start Date: 07/31/23 Status: Ordered gabapentin 400 mg oral capsule 400 mg, By Mouth, 3 times a day, # 90 capsule, Refills 0, Tot. Refills 0, Maintenance, 07/26/23 10:51:00 EST, Route to Pharmacy Electronically, [facility] [id number] ([facility] [employer]), Partial fill upon patient request if the prescription is for a schedule I... Start Date: 07/26/23 Stop Date: 08/25/23 Status: Ordered hydrOXYzine pamoate 50 mg oral capsule = 50 mg, By Mouth, 3 times a day, PRN Anxiety, # 90 capsule, 0 Refills, Maintenance, 07/26/23 10:49:00 EST, Capsule, [facility] [address] ([facility] [employer]), Partial fill upon patient request if the prescription is for a schedule II opioid drug., 175, cm, 11... Start Date: 07/26/23 Status: Ordered lidocaine 5% topical film 1 patch, Topically, Daily, PRN Pain , Mild, # 30 patch, 0 Refills, Maintenance, 07/26/23 10:44:00 EST, Patch, [facility] [address] ([facility] [employer]), Partial fill upon patient request if the prescription is for a schedule II opioid drug., 1 patch Topically... Start Date: 07/26/23 Status: Ordered loratadine 10 mg oral tablet 10 mg, By Mouth, Daily, # 30 tablet, Refills 0, Tot. Refills 0, Maintenance, 07/26/23 10:45:00 EST,Route to Pharmacy Electronically, [facility] [address] ([facility] [employer]), Partial fill upon patient request if the prescription is for a schedule II opioid d... Start Date: 07/26/23 Status: Ordered montelukast 10 mg oral tablet 10 mg, 1, tablet, By Mouth, Daily, # 30 tablet, Refills 0, Tot. Refills 0, Maintenance, 07/26/23 10:51:00 EST, Route to Pharmacy Electronically, [facility] [address] ([facility]), Partial fill upon patient request if the prescription is for a schedule... Start Date: 07/26/23 Stop Date: 08/25/23 Status: Ordered Mucinex 600 mg oral tablet, extended release 1 tablet = 600 mg, By Mouth, Every 12 hours, for 7 days, # 14 tablet, 0 Refills, Acute 09/07/23 17:21:00 EST, 08/31/23 17:21:00 EST, ER Tablet, [facility]/pharmacy #[id number], Partial fill upon patient request if the prescription is for a schedule II opioid drug.... Start Date: 08/31/23 Stop Date: 09/07/23 Status: Ordered nicotine 21 mg/24 hr transdermal film, extended release 1 patch, Topically, Daily, # 30 patch, 0 Refills, Maintenance, 07/26/23 10:45:00 EST, Patch, [facility] ([email or web address]), Partial fill upon patient request if the prescription is for a schedule II opioid drug., 1 patch Topically Daily, 175, cm, 1... Start Date: 07/26/23 Status: Ordered omeprazole 40 mg oral enteric coated capsule 1 capsule = 40 mg, By Mouth, Daily, # 30 capsule, 1 Refills, Maintenance, 07/26/23 10:51:00 EST, ECCapsule, [facility] ([email or web address]), Partial fill upon patient request if the prescription isfor a schedule II opioid drug., 175, cm, 07/26/23 8... Start Date: 07/26/23 Status: Ordered oxyCODONE 5 mg oral tablet 5 mg, By Mouth, Every 6 hours, PRN, # 16 tablet, Refills 0, Tot. Refills 0, Maintenance, Pain , Severe, 07/26/23 10:50:00 EST, Route to Pharmacy Electronically, [facility] ([email or web address]), Partial fill upon patient request if the prescription is... Start Date: 07/26/23 Status: Ordered prazosin 1 mg oral capsule 2 mg, By Mouth, Daily at bedtime, # 30 capsule, Refills 0, Tot. Refills 0, Maintenance, 09/03/23 13:10:00 EST, Route to Pharmacy Electronically, [facility]/pharmacy #[id number], Partial fill upon patient request if the prescription is for a schedule II opioid drug... Start Date: 09/03/23 Status: Ordered predniSONE 10 mg oral tablet = 30 mg, By Mouth, Every 24 hours, # 3 tablet, 0 Refills, Maintenance, 07/31/23 7:00:00 EST, Tablet, [facility] [address] ([facility]), Partial fill upon patient request if the prescription is for a schedule II opioid drug., 175, cm, 07/26/23 8:30:00 E... Start Date: 07/31/23 Stop Date: 08/03/23 Status: Ordered predniSONE 10 mg oral tablet = 10 mg, By Mouth, Every 24 hours, # 3 tablet, 0 Refills, Maintenance, 08/06/23 7:00:00 EST, Tablet, [facility] ([facility]), Partial fill upon patient request if the prescription is for a schedule II opioid drug., 175, cm, 07/26/23 8:30:00 E... Start Date: 08/06/23 Stop Date: 08/09/23 Status: Ordered predniSONE 50 mg oral tablet = 50 mg, By Mouth, Once, # 1 each, 0 Refills, Soft Stop, 07/27/23 7:00:00 EST, Tablet, [facility] ([facility]), Partial fill upon patient request if the prescription is for a schedule II opioid drug., 175, cm, 07/26/23 8:30:00 EST, Height, 14... Start Date: 07/27/23 Status: Ordered QUEtiapine 100 mg oral tablet 100 mg, By Mouth, 2 times a day, PRN, # 60 tablet, Refills 0, Tot. Refills 0, Maintenance, Anxiety,09/03/23 13:10:00 EST, Route to Pharmacy Electronically, [facility]/pharmacy #[id number], Partial fill upon patient request if the prescription is for a schedule II... Start Date: 09/03/23 Status: Ordered QUEtiapine 400 mg oral tablet 1 tablet = 400 mg, By Mouth, Daily at bedtime, # 30 tablet, 0 Refills, Maintenance, 07/26/23 10:51:00 EST, Tablet, [facility] [address] ([facility]), Partial fill upon patient request if the prescription is for a schedule II opioid drug., 175, cm, 06/29... Start Date: 07/26/23 Status: Ordered tiotropium 1.25 mcg/inh inhalation aerosol 2 puffs = 2.5 mcg, Inhalation, Daily, # 1 each, 6 Refills, Maintenance, 07/31/23 12:33:00 EST, Aerosol, [id number] [address] ([facility] [employer]), Partial fill upon patient request if the prescription is for a schedule II opioid drug., 175, cm, 07/26/23 8:30:0... Start Date: 07/31/23 Status: Ordered Tums 500 mg oral tablet, chewable 500 mg, 1, tablet, Chew, Every 4 hours, PRN, # 60 tablet, Refills 0, Tot. Refills 0, Maintenance, Dyspepsia, 07/26/23 10:47:00 EST, Route to Pharmacy Electronically, [facility] [id number] ([facility] [employer]),Partial fill upon patient request if the prescripti... Start Date: 07/26/23 Status: Ordered Tylenol 8 Hour 650 mg oral tablet, extended release 2 tablet = 1,300 mg, By Mouth, Every 8 hours, # 180 tablet, 1 Refills, Maintenance, 07/11/23 15:44:00 EST, ER Tablet, [facility], Partial fill upon patient request if the prescription is for a schedule II opioid drug., 178, cher, 07/11/23 13:5... Start Date: 07/11/23 Status: Ordered Vitamin D3 1000 intl units oral capsule 1 capsule = 25 mcg, By Mouth, Daily, # 30 capsule, 0 Refills, Maintenance, 07/26/23 10:51:00 EST, [facility] ([facility] [employer]), Partial fill upon patient request if the prescription is for a schedule II opioid drug., 175, cher, 07/26/23 8:3... Start Date: 07/26/23 Status: Ordered [...] Care Member Role: PCP Address: Address: [address] [place] [id number]- Name: Scooter Locke RN Position: [facility] RN Member Role: Primary Care Nurse Name: Sandi Hightower RN Position: S RN Member Role: Primary Care Nurse Name: Angelita Almeida RN Position: S RN Member Role: Primary Care Nurse Name: Citlali Reilly Position: S RN Member Role: Primary Care Nurse Name: Tiny Pettit RN Position: [facility] RN Member Role: Primary Care Nurse Name: Marcelino Fermin RN Position: [facility] RN Member Role: Primary Care Nurse Name: Brenda Toscano NP Position: Reference Physician Member Role: Primary Care Nurse Address: Address: [address] [place] [id number]- Care Team Related Persons Name: KEY DEWEY Address: [place] [address] Name: AIDA DEWEY Address: home [address] [place] [address] Name: NO, ONE
--- OUTSIDE RECORDS SUMMARY | 2023-09-19 10:30 | XMS_ITS | Continuity of Care Document ---
Author Name Unknown Organization [facility] Address [address] [place] [address]- Care Team Providers Care De Alcholizer Name Role Phone Yevgeniy ÁLVAREZ, Polly Kapoor Primary Care Physician [phone] Encounter [facility] Date(s): 06/26/23 - 07/26/23 [facility] [address], [place] [id number] Allergies, Adverse Reactions, Alerts Substance Reaction Severity Status codeine Active aspirin Active NSAIDs Active TraMADol Hydrochloride Activ e Haldol Active PROzac Active Immunizations Given and Recorded Vaccine Date Status Refusal Reason influenza virus vaccine, inactivated 07/17/23 Give n [id number] bivalent booster vax 06/21/22 Recorded tetanus/diphtheria/pertussis, acel(Tdap) 1 05/14/21 Given SARS-CoV-2 (COVID-19) Ad26 vaccine 2 02/15/21 Give n Influenza Virus Vaccine (oldterm) 06/11/20 Recorde d 1Result Comment: [facility] [id number] 2Result Comment: [facility] [id number] Medications albuterol CFC free 90 mcg/inh inhalation aerosol 180 mcg, 2, puffs, Inhalation, Every 2 hours, PRN, Refills 0, Maintenance, 07/26/23 10:47:00 EST, Inhaler Start Date: 07/26/23 Status: Ordered amLODIPine 10 mg oral tablet 1 tablet = 10 mg, By Mouth, Daily, # 90 tablet, 0 Refills, Maintenance, 07/26/23 10:51:00 EST, Tablet, [facility] ([facility]), Partial fill upon patient request [...] Refills, Maintenance, 07/26/23 10:51:00 EST, Tablet, [facility] ([email or web address]), Partial fill upon patient request if the prescription is for a schedule II opioid drug., 175, cm, 07/26... Start Date: 07/26/23 Status: Ordered cloNIDine 0.1 mg oral tablet 0.1 mg, By Mouth, 3 times a day, PRN, # 90 tablet, Refills 0, Tot. Refills 0, Maintenance, Anxiety,07/26/23 10:51:00 EST, Route to Pharmacy Electronically, [facility] ([email or web address]), Partial fill upon patient request if the prescription is for... Start Date: 07/26/23 Status: Ordered cyanocobalamin 1000 mcg oral tablet, extended release 1 tablet = 1,000 mcg, By Mouth, Daily, # 30 tablet, 0 Refills, Maintenance, 07/26/23 10:51:00 EST, ER Tablet, [facility] ([facility]), Partial fill upon patient request if the prescription is for a schedule II opioid drug., 175, cm, 07/26/23... Start Date: 07/26/23 Status: Ordered cyclobenzaprine 10 mg oral tablet 10 mg, By Mouth, 3 times a day, PRN, # 24 each, Refills 0, Tot. Refills 0, Maintenance, Pain , Moderate, 07/26/23 10:47:00 EST, Route to Pharmacy Electronically, [facility] ([email or web address] [address]), Partial fill upon patient request if the prescription i... Start Date: 07/26/23 Status: Ordered diclofenac 1% topical gel = 4 Gm, Topically, 4 times a day, to each knee. not to exceed 16 grams/day/single joint of lower extremities, # 480 Gm, 0 Refills, Maintenance, 07/26/23 10:51:00 EST, Gel, [facility] ([email or web address]), Partial fill upon patient request if the pr... Start Date: 07/26/23 Status: Ordered diclofenac 1% topical gel = 2 Gm, Topically, 4 times a day, to L shoulder not to exceed 8 grams/day/single joint of upper extremities, # 240 Gm, 0 Refills, Maintenance, 07/26/23 10:51:00 EST, Gel, [facility] ([facility]), Partial fill upon patient request if the pre... Start Date: 07/26/23 Status: Ordered divalproex sodium 250 mg oral tablet, extended release = 750 mg, By Mouth, Daily, # 90 tablet, 0 Refills, Maintenance, 07/26/23 10:51:00 EST, ER Tablet, [facility] ([facility]), Partial fill upon patient request if the prescription is for a schedule II opioid drug., 175, cm, 07/26/23 8:30:00 EST,... Start Date: 07/26/23 Status: Ordered fluticasone-vilanterol Inhalation, Daily, 0 Refills, Maintenance, 07/26/23 10:51:00 EST, Inhaler, Partial fill upon patient request if the prescription is for a schedule II opioid drug. Start Date: 07/26/23 Status: Ordered gabapentin 400 mg oral capsule 400 mg, By Mouth, 3 times a day, # 90 capsule, Refills 0, Tot. Refills 0, Maintenance, 07/26/23 10:51:00 EST, Route to Pharmacy Electronically, [facility] ([facility]), Partial fill upon patient request if the prescription is for a schedule I... Start Date: 07/26/23 Stop Date: 08/25/23 Status: Ordered hydrOXYzine pamoate 50 mg oral capsule = 50 mg, By Mouth, 3 times a day, PRN Anxiety, # 90 capsule, 0 Refills, Maintenance, 07/26/23 10:49:00 EST, Capsule, [facility] ([facility]), Partial fill upon patient request if the prescription is for a schedule II opioid drug., 175, cm, 11... Start Date: 07/26/23 Status: Ordered lidocaine 5% topical film 1 patch, Topically, Daily, PRN Pain , Mild, # 30 patch, 0 Refills, Maintenance, 07/26/23 10:44:00 EST, Patch, [facility] ([email or web address]), Partial fill upon patient request if the prescription is for a schedule II opioid drug., 1 patch Topically... Start Date: 07/26/23 Status: Ordered loratadine 10 mg oral tablet 10 mg, By Mouth, Daily, # 30 tablet, Refills 0, Tot. Refills 0, Maintenance, 07/26/23 10:45:00 EST,Route to Pharmacy Electronically, [facility] ([facility]), Partial fill upon patient request if the prescription is for a schedule II opioid d... Start Date: 07/26/23 Status: Ordered melatonin 3 mg oral tablet = 3 mg, By Mouth, Daily at bedtime, PRN Sleep, for 30 days, Can repeate 1x, # 30 tablet, 0 Refills,Acute 08/25/23 10:50:00 EST, 07/26/23 10:50:00 EST, Tablet, [facility] ([email or web address]), Partial fill upon patient request if the prescription is... Start Date: 07/26/23 Stop Date: 08/25/23 Status: Ordered montelukast 10 mg oral tablet 10 mg, 1, tablet, By Mouth, Daily, # 30 tablet, Refills 0, Tot. Refills 0, Maintenance, 07/26/23 10:51:00 EST, Route to Pharmacy Electronically, [facility] ([email or web address] [address]), Partial fill upon patient request if the prescription is for a schedule... Start Date: 07/26/23 Stop Date: 08/25/23 Status: Ordered nicotine 21 mg/24 hr transdermal film, extended release 1 patch, Topically, Daily, # 30 patch, 0 Refills, Maintenance, 07/26/23 10:45:00 EST, Patch, [facility] ([email or web address]27), Partial fill upon patient request if the prescription is for a schedule II opioid drug., 1 patch Topically Daily, 175, cm, 1... Start Date: 07/26/23 Status: Ordered omeprazole 40 mg oral enteric coated capsule 1 capsule = 40 mg, By Mouth, Daily, # 30 capsule, 1 Refills, Maintenance, 07/26/23 10:51:00 EST, ECCapsule, [facility] ([email or web address]), Partial fill upon patient request if the prescription isfor a schedule II opioid drug., 175, cm, 07/26/23 8... Start Date: 07/26/23 Status: Ordered oxyCODONE 5 mg oral tablet 5 mg, By Mouth, Every 6 hours, PRN, # 16 tablet, Refills 0, Tot. Refills 0, Maintenance, Pain , Severe, 07/26/23 10:50:00 EST, Route to Pharmacy Electronically, [facility] ([facility] [address]), Partial fill upon patient request if the prescription is... Start Date: 07/26/23 Status: Ordered prazosin 1 mg oral capsule 2 mg, By Mouth, Daily at bedtime, # 30 capsule, Refills 0, Tot. Refills 0, Maintenance, 07/26/23 10:51:00 EST, Route to Pharmacy Electronically, [facility] ([facility]), Partial fill upon patient request if the prescription is for a schedule... Start Date: 07/26/23 Status: Ordered predniSONE 10 mg oral tablet = 30 mg, By Mouth, Every 24 hours, # 3 tablet, 0 Refills, Maintenance, 07/31/23 7:00:00 EST, Tablet, [facility] ([facility]), Partial fill upon patient request if the prescription is for a schedule II opioid drug., 175, cm, 07/26/23 8:30:00 E... Start Date: 07/31/23 Stop Date: 08/03/23 Status: Ordered predniSONE 10 mg oral tablet = 10 mg, By Mouth, Every 24 hours, # 3 tablet, 0 Refills, Maintenance, 08/06/23 7:00:00 EST, Tablet, [facility] ([facility]), Partial fill upon patient request if the prescription is for a schedule II opioid drug., 175, cm, 07/26/23 8:30:00 E... Start Date: 08/06/23 Stop Date: 08/09/23 Status: Ordered predniSONE 20 mg oral tablet = 40 mg, By Mouth, Every 24 hours, # 3 tablet, 0 Refills, Acute 07/31/23 7:00:00 EST, 07/28/23 7:00:00 EST, Tablet, [facility] ([facility]), Partial fill upon patient request if the prescription is for a schedule II opioid drug., 175, cm, ... Start Date: 07/28/23 Stop Date: 07/31/23 Status: Ordered predniSONE 20 mg oral tablet = 20 mg, By Mouth, Every 24 hours, # 3 tablet, 0 Refills, Acute 08/06/23 7:00:00 EST, 08/03/23 7:00:00 EST, Tablet, [facility] ([facility]), Partial fill upon patient request if the prescription is for a schedule II opioid drug., 175, cm, ... Start Date: 08/03/23 Stop Date: 08/06/23 Status: Ordered predniSONE 50 mg oral tablet = 50 mg, By Mouth, Once, # 1 each, 0 Refills, Soft Stop, 07/27/23 7:00:00 EST, Tablet, [facility] ([facility]), Partial fill upon patient request if the prescription is for a schedule II opioid drug., 175, cm, 07/26/23 8:30:00 EST, Height, 14... Start Date: 07/27/23 Status: Ordered QUEtiapine 100 mg oral tablet 100 mg, By Mouth, 2 times a day, PRN, # 60 tablet, Refills 0, Tot. Refills 0, Maintenance, Anxiety,07/26/23 10:51:00 EST, Route to Pharmacy Electronically, [facility] ([facility]), Partial fill upon patient request if the prescription is for... Start Date: 07/26/23 Status: Ordered QUEtiapine 400 mg oral tablet 1 tablet = 400 mg, By Mouth, Daily at bedtime, # 30 tablet, 0 Refills, Maintenance, 07/26/23 10:51:00 EST, Tablet, [facility] ([facility]), Partial fill upon patient request [...] 07/26/23 10:47:00 EST, Route to Pharmacy Electronically, [facility] [address] ([email or web address] [facility]),Partial fill upon patient request if the prescripti... Start Date: 07/26/23 Status: Ordered Tylenol 8 Hour 650 mg oral tablet, extended release 2 tablet = 1,300 mg, By Mouth, Every 8 hours, # 180 tablet, 1 Refills, Maintenance, 07/11/23 15:44:00 EST, ER Tablet, [facility], Partial fill upon patient request if the prescription is for a schedule II opioid drug., 178, cm, 07/11/23 13:5... Start Date: 07/11/23 Status: Ordered Vitamin D3 1000 intl units oral capsule 1 capsule = 25 mcg, By Mouth, Daily, # 30 capsule, 0 Refills, Maintenance, 07/26/23 10:51:00 EST, Capsule, [id number] ([facility]), Partial fill upon patient request if the [...] 2 PPD currently; entered on: 07/15/23 Sex Hospital Progress note * Ana M Velásquez RN: PERFORM, SIGN, VERIFY Event Display: Progress Note Hospital Authored Date: Patient: PEGGY DEWEY Age: 47 years Sex: Female : 1975 Associated Diagnoses: None Author: Ana M Velásquez RN Findings Narrative/Incidental PT PHONED UNITAT 1620 STATING THAT SHE WAS MISSING HER DIRECT [employer] DEBIT CARD AND ONE OF HER TWOCELLPHONES. DESCRIBED IT A VERIZON PHONE. UNABLE TO LOCATE ON UNIT. ED ADMISSION SHEET INDICATESSHE HAD 2 PHONES, [facility] AND NO DEBIT CARD LISTED. CALLED SECURITY AND THEY STATED AN ITEM WAS RETURNED TO HER LAST NIGHT, STAFF VERIFIED THAT IT WAS A WIG ONLY. BODY MASKER MADE AWARE. CONTACT NUMBER IF FOUND IS [phone].. Patient Care team information Care Team Personnel Name: Shane Christie RN Position: S RN Member Role: Primary Care Nurse Name: Hilda Escobar RN Position: [facility] [...] Primary Care Member Role: PCP Address: Address: [address] [place] [address] Name: Cheryle Godinez Position: S RN Member Role: Primary Care Nurse Name: Scooter Locke RN Position: S RN Member Role: Primary Care Nurse Name: Sandi Hightower RN Position: S RN Member Role: Primary Care Nurse Name: Angelita Almeida RN Position: [facility] RN Member Role: Primary Care Nurse Name: Citlali Reilly Position: [facility] RN Member Role: Primary Care Nurse Name: Tiny Pettit RN Position: [facility] RN Member Role: Primary Care Nurse Name: Mel Hidalgo RN Position: S RN Member Role: Primary Care Nurse Name: Marcelino Fermin RN Position: [facility] RN Member Role: Primary Care Nurse Name: Brenda Toscano NP Position: Reference Physician Member Role: Primary Care Nurse Address: Address: [address] [place] [id number]- Care Team Related Persons Name: KEY DEWEY Address: [place] [address] Name: AIDA DEWEY Address: [address] [address] Name: NO, CARLIN
--- OUTSIDE RECORDS SUMMARY | 2023-09-19 10:30 | XMS_ITS | Continuity of Care Document ---
Author Name Unknown Organization [facility] Address [address] [place] [address]- Care Team Providers Care Rn New Graduate Name Role Phone Yevgeniy ÁLVAREZ, Polly Kapoor Primary Care Physician Encounter [facility] [place] Date(s): 08/03/23 - 09/02/23 [facility] [address] [place], [place] [address] Allergies, Adverse Reactions, Alerts Substance Reaction Severity Status codeine Active aspirin Active TraMADol Hydrochloride Activ e Haldol Active NSAIDs Active PROzac Active Immunizations Given and Recorded Vaccine Date Status Refusal Reason influenza virus vaccine, inactivated 07/17/23 Give n [id number] bivalent booster vax 06/21/22 Recorded tetanus/diphtheria/pertussis, acel(Tdap) 1 05/14/21 Given SARS-CoV-2 (COVID-19) Ad26 vaccine 2 02/15/21 Give n Influenza Virus Vaccine (oldterm) 06/11/20 Recorde d 1Result Comment: [facility] [id number] 2Result Comment: [facility] 70345-255-38 Medications albuterol CFC free 90 mcg/inh inhalation aerosol 180 mcg, 2, puffs, Inhalation, Every 6 hours, PRN, # 8 Gm, Refills 6, Tot. Refills 6, Maintenance, 07/31/23 12:32:00 EST, Inhaler, Route to Pharmacy Electronically, [id number], [id number] ([facility]), 175, cm, 07/26... Start Date: 07/31/23 Status: Ordered amLODIPine 10 mg oral tablet 1 tablet = 10 mg, By Mouth, Daily, # 90 tablet, 0 Refills, Maintenance, 07/26/23 10:51:00 EST, Tablet, [id number] ([facility]), Partial fill upon patient request if [...] Refills, Maintenance, 07/26/23 10:51:00 EST, Tablet, [facility] ([facility]), Partial fill upon patient request if the prescription is for a schedule II opioid drug., 175, cm, 07/26... Start Date: 07/26/23 Status: Ordered cloNIDine 0.1 mg oral tablet 0.1 mg, By Mouth, 3 times a day, PRN, # 90 tablet, Refills 0, Tot. Refills 0, Maintenance, Anxiety,07/26/23 10:51:00 EST, Route to Pharmacy Electronically, [id number] ([facility]), Partial fill upon patient request if the prescription is for... Start Date: 07/26/23 Status: Ordered cyanocobalamin 1000 mcg oral tablet, extended release 1 tablet = 1,000 mcg, By Mouth, Daily, # 90 tablet, 3 Refills, Maintenance, 08/11/23 12:10:00 EST, ER Tablet, [facility] ([facility]), Partial fill upon patient request if the prescription is for a schedule II opioid drug., 175, cm, 07/26/23... Start Date: 08/11/23 Status: Ordered cyclobenzaprine 10 mg oral tablet 10 mg, By Mouth, 3 times a day, PRN, # 24 each, Refills 1, Tot. Refills 1, Maintenance, Pain , Moderate, 08/11/23 16:09:00 EST, Route to Pharmacy Electronically, [facility] ([facility]), Partial fill upon patient request if the prescription i... Start Date: 08/11/23 Status: Ordered diclofenac 1% topical gel = 4 Gm, Topically, 4 times a day, to each knee. not to exceed 16 grams/day/single joint of lower extremities, # 480 Gm, 0 Refills, Maintenance, 07/26/23 10:51:00 EST, Gel, [facility] ([id number]), Partial fill upon patient request if the pr... Start Date: 07/26/23 Status: Ordered diclofenac 1% topical gel = 2 Gm, Topically, 4 times a day, to L shoulder not to exceed 8 grams/day/single joint of upper extremities, # 240 Gm, 0 Refills, Maintenance, 07/26/23 10:51:00 EST, Gel, [facility] ([facility]), Partial fill upon patient request if the pre... Start Date: 07/26/23 Status: Ordered Diflucan 150 mg oral tablet See Instructions, 1 tablet By Mouth Once, repeat in 72 hours if no resolution of discharge., # 2 tablet, 0 Refills, Maintenance, 08/31/23 17:20:00 EST, Tablet, [facility]/pharmacy #[id number], Partial fill upon patient request if the prescription is for a schedule... Start Date: 08/31/23 Status: Ordered divalproex sodium 250 mg oral tablet, extended release = 750 mg, By Mouth, Daily, # 90 tablet, 0 Refills, Maintenance, 07/26/23 10:51:00 EST, ER Tablet, [facility] ([facility]), Partial fill upon patient request if the prescription is for a schedule II opioid drug., 175, cm, 07/26/23 8:30:00 EST,... Start Date: 07/26/23 Status: Ordered fluticasone-vilanterol 100 mcg-25 mcg/inh inhalation powder 1 puffs, Inhalation, Daily, Rinse mouth after each use, # 1 each, 6 Refills, Maintenance, 07/31/23 12:33:00 EST, Inhaler, [facility] ([facility]), Partial fill upon patient request if the prescription is for a schedule II opioid drug., 1 puff... Start Date: 07/31/23 Status: Ordered gabapentin 400 mg oral capsule 400 mg, By Mouth, 3 times a day, # 90 capsule, Refills 0, Tot. Refills 0, Maintenance, 07/26/23 10:51:00 EST, Route to Pharmacy Electronically, [id number] ([place]), Partial fill upon patient request if the prescription is for a schedule I... Start Date: 07/26/23 Stop Date: 08/25/23 Status: Ordered hydrOXYzine pamoate 50 mg oral capsule = 50 mg, By Mouth, 3 times a day, PRN Anxiety, # 90 capsule, 0 Refills, Maintenance, 07/26/23 10:49:00 EST, Capsule, [facility] [address] ([facility]), Partial fill upon patient request if the prescription is for a schedule II opioid drug., 175, cm, 11... Start Date: 07/26/23 Status: Ordered lidocaine 5% topical film 1 patch, Topically, Daily, PRN Pain , Mild, # 30 patch, 0 Refills, Maintenance, 07/26/23 10:44:00 EST, Patch, [facility] [id number] ([facility]), Partial fill upon patient request if the prescription is for a schedule II opioid drug., 1 patch Topically... Start Date: 07/26/23 Status: Ordered loratadine 10 mg oral tablet 10 mg, By Mouth, Daily, # 30 tablet, Refills 0, Tot. Refills 0, Maintenance, 07/26/23 10:45:00 EST,Route to Pharmacy Electronically, [facility] [address] ([employer]), Partial fill upon patient request if the prescription is for a schedule II opioid d... Start Date: 07/26/23 Status: Ordered montelukast 10 mg oral tablet 10 mg, 1, tablet, By Mouth, Daily, # 30 tablet, Refills 0, Tot. Refills 0, Maintenance, 07/26/23 10:51:00 EST, Route to Pharmacy Electronically, [facility] [address] ([employer] [facility]), Partial fill upon patient request if the prescription is for a schedule... Start Date: 07/26/23 Stop Date: 08/25/23 Status: Ordered Mucinex 600 mg oral tablet, extended release 1 tablet = 600 mg, By Mouth, Every 12 hours, for 7 days, # 14 tablet, 0 Refills, Acute 09/07/23 17:21:00 EST, 08/31/23 17:21:00 EST, ER Tablet, [facility]/pharmacy #[id number], Partial fill upon patient request if the prescription is for a schedule II opioid drug.... Start Date: 08/31/23 Stop Date: 09/07/23 Status: Ordered nicotine 21 mg/24 hr transdermal film, extended release 1 patch, Topically, Daily, # 30 patch, 0 Refills, Maintenance, 07/26/23 10:45:00 EST, Patch, [facility] ([employer]27), Partial fill upon patient request if the prescription is for a schedule II opioid drug., 1 patch Topically Daily, 175, cm, 1... Start Date: 07/26/23 Status: Ordered omeprazole 40 mg oral enteric coated capsule 1 capsule = 40 mg, By Mouth, Daily, # 30 capsule, 1 Refills, Maintenance, 07/26/23 10:51:00 EST, ECCapsule, [facility] ([employer]), Partial fill upon patient request if the prescription isfor a schedule II opioid drug., 175, cm, 07/26/23 8... Start Date: 07/26/23 Status: Ordered oxyCODONE 5 mg oral tablet 5 mg, By Mouth, Every 6 hours, PRN, # 16 tablet, Refills 0, Tot. Refills 0, Maintenance, Pain , Severe, 07/26/23 10:50:00 EST, Route to Pharmacy Electronically, [facility] ([facility]), Partial fill upon patient request if the prescription is... Start Date: 07/26/23 Status: Ordered prazosin 1 mg oral capsule 2 mg, By Mouth, Daily at bedtime, # 30 capsule, Refills 0, Tot. Refills 0, Maintenance, 08/08/23 16:57:00 EST, Route to Pharmacy Electronically, [facility] ([facility]), Partial fill upon patient request if the prescription is for a schedule... Start Date: 08/08/23 Status: Ordered predniSONE 10 mg oral tablet = 30 mg, By Mouth, Every 24 hours, # 3 tablet, 0 Refills, Maintenance, 07/31/23 7:00:00 EST, Tablet, [facility] ([facility]), Partial fill upon patient request if the prescription is for a schedule II opioid drug., 175, cm, 07/26/23 8:30:00 E... Start Date: 07/31/23 Stop Date: 08/03/23 Status: Ordered predniSONE 10 mg oral tablet = 10 mg, By Mouth, Every 24 hours, # 3 tablet, 0 Refills, Maintenance, 08/06/23 7:00:00 EST, Tablet, [facility] ([facility]), Partial fill upon patient request if the prescription is for a schedule II opioid drug., 175, cm, 07/26/23 8:30:00 E... Start Date: 08/06/23 Stop Date: 08/09/23 Status: Ordered predniSONE 50 mg oral tablet = 50 mg, By Mouth, Once, # 1 each, 0 Refills, Soft Stop, 07/27/23 7:00:00 EST, Tablet, [facility] ([facility]), Partial fill upon patient request if the prescription is for a schedule II opioid drug., 175, cm, 07/26/23 8:30:00 EST, Height, 14... Start Date: 07/27/23 Status: Ordered QUEtiapine 100 mg oral tablet 100 mg, By Mouth, 2 times a day, PRN, # 60 tablet, Refills 0, Tot. Refills 0, Maintenance, Anxiety,07/26/23 10:51:00 EST, Route to Pharmacy Electronically, [facility] ([facility]), Partial fill upon patient request if the prescription is for... Start Date: 07/26/23 Status: Ordered QUEtiapine 400 mg oral tablet 1 tablet = 400 mg, By Mouth, Daily at bedtime, # 30 tablet, 0 Refills, Maintenance, 07/26/23 10:51:00 EST, Tablet, [facility] ([facility]), Partial fill upon patient request if the prescription is for a schedule II opioid drug., 175, cher, 06/29... Start Date: 07/26/23 Status: Ordered tiotropium 1.25 mcg/inh inhalation aerosol 2 puffs = 2.5 mcg, Inhalation, Daily, # 1 each, 6 Refills, Maintenance, 07/31/23 12:33:00 EST, Aerosol, [facility] ([employer]27), Partial fill upon patient request if the prescription is for a schedule II opioid drug., 175, cher, 07/26/23 8:30:0... Start Date: 07/31/23 Status: Ordered Tums 500 mg oral tablet, chewable 500 mg, 1, tablet, Chew, Every 4 hours, PRN, # 60 tablet, Refills 0, Tot. Refills 0, Maintenance, Dyspepsia, 07/26/23 10:47:00 EST, Route to Pharmacy Electronically, [facility] ([employer]),Partial fill upon patient request if the prescripti... Start Date: 07/26/23 Status: Ordered Tylenol 8 Hour 650 mg oral tablet, extended release 2 tablet = 1,300 mg, By Mouth, Every 8 hours, # 180 tablet, 1 Refills, Maintenance, 07/11/23 15:44:00 EST, ER Tablet, [facility], Partial fill upon patient request if the prescription is for a schedule II opioid drug., [address]cher, 07/11/23 13:5... Start Date: 07/11/23 Status: Ordered Vitamin D3 1000 intl units oral capsule 1 capsule = 25 mcg, By Mouth, Daily, # 30 capsule, 0 Refills, Maintenance, 07/26/23 10:51:00 EST, [facility]apsule, [facility] ([facility]), Partial fill upon patient request if [...] Care Nurse Name: Jeni Solorio RN Position: [facility] RN Member Role: Primary Care Nurse Name: Rebekah Delatorre RN Position: [facility] RN Member Role: Primary Care Nurse Name: Polly Vuong MD, V Position: S Physician - Primary Care Member Role: PCP Address: Address: [address] [place] [id number]- Name: Scooter Locke RN Position: [facility] RN Member Role: Primary Care Nurse Name: Sandi Hightower RN Position: S RN Member Role: Primary Care Nurse Name: Angelita Almeida RN Position: S RN Member Role: Primary Care Nurse Name: Citlali Reilly Position: S RN Member Role: Primary Care Nurse Name: Tiny Pettit RN Position: [facility] RN Member Role: Primary Care Nurse Name: Marcelino Fermin RN Position: S RN Member Role: Primary Care Nurse Name: Brenda Toscano NP Position: Reference Physician Member Role: Primary Care Nurse Address: Address: [address] [place] [id number]- Care Team Related Persons Name: KEY DEWEY Address: [place] [address] Name: AIDA DEWEY Address: home [address] [place] [id number] Name: NO, ONE
--- OUTSIDE RECORDS SUMMARY | 2023-09-19 10:30 | XMS_ITS | Continuity of Care Document ---
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 [place] Date(s): 04/06/23 - 05/06/23 [facility] [address] [place], [place] [address] Allergies, Adverse Reactions, Alerts Substance Reaction Severity Status codeine Active aspirin Active Haldol Active NSAIDs Active PROzac Active TraMADol Hydrochloride Activ e Immunizations Given and Recorded Vaccine Date Status Refusal Reason [id number] bivalent booster vax 06/21/22 Recorded tetanus/diphtheria/pertussis, acel(Tdap) 1 05/14/21 Given SARS-CoV-2 (COVID-19) Ad26 vaccine 2 02/15/21 Give n Influenza Virus Vaccine (oldterm) 06/11/20 Recorde d 1Result Comment: [facility] [id number] 2Result Comment: [facility] [id number] Medications amLODIPine 5 mg oral tablet 0 [...] 1 Refills, Maintenance, 11/08/22 11:26:00EDT, EC Capsule, [facility], Partial fill upon patient request [...] capsule, 1 Refills, Maintenance, 02/27/23 15:17:00 EDT, [facility], Partial fill upon patient request if [...] Primary Care Member Role: PCP Address: Address: [address] [place] [address] Name: Sandi Hightower RN Position: S RN Member Role: Primary Care Nurse Name: Angelita Almeida RN Position: S RN Member Role: Primary Care Nurse Name: Marcelino Fermin RN Position: S RN Member Role: Primary Care Nurse Care Team Related Persons Name: KEY DEWEY Name: AIDA DEWEY Address: [place] [address] Name: CARLIN ORTEGA
--- OUTSIDE RECORDS SUMMARY | 2023-09-19 10:31 | XMS_ITS | Continuity of Care Document ---
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 Role Phone Yevgeniy ÁLVAREZ, Polly Kapoor Primary Care Physician Encounter [facility] Date(s): 08/04/23 - 09/03/23 [facility] [address] [place], [place] [address] Allergies, Adverse Reactions, Alerts Substance Reaction Severity Status codeine Active aspirin Active Haldol Active NSAIDs Active PROzac Active TraMADol Hydrochloride Activ e Immunizations Given and Recorded Vaccine Date Status Refusal Reason influenza virus vaccine, inactivated 07/17/23 Give n [id number] bivalent booster vax 06/21/22 Recorded tetanus/diphtheria/pertussis, acel(Tdap) 1 05/14/21 Given SARS-CoV-2 (COVID-19) Ad26 vaccine 2 02/15/21 Give n Influenza Virus Vaccine (oldterm) 06/11/20 Recorde d 1Result Comment: [facility] [id number] 2Result Comment: [facility] 22127-783-96 Medications albuterol CFC free 90 mcg/inh inhalation aerosol 180 mcg, 2, puffs, Inhalation, Every 6 hours, PRN, # 8 Gm, Refills 6, Tot. Refills 6, Maintenance, 07/31/23 12:32:00 EST, Inhaler, Route to Pharmacy Electronically, [id number], [facility] [id number] ([facility] 827), 175, cm, 07/26... Start Date: 07/31/23 Status: Ordered amLODIPine 10 mg oral tablet 1 tablet = 10 mg, By Mouth, Daily, # 90 tablet, 0 Refills, Maintenance, 07/26/23 10:51:00 EST, Tablet, [facility] ([employer] [facility]), Partial fill upon patient request if [...] Refills, Maintenance, 07/26/23 10:51:00 EST, Tablet, [facility] ([employer] [facility]), Partial fill upon patient request if the prescription is for a schedule II opioid drug., 175, cm, 07/26... Start Date: 07/26/23 Status: Ordered cloNIDine 0.1 mg oral tablet 0.1 mg, By Mouth, 3 times a day, PRN, # 90 tablet, Refills 0, Tot. Refills 0, Maintenance, Anxiety,07/26/23 10:51:00 EST, Route to Pharmacy Electronically, [facility] ([employer] [facility]), Partial fill upon patient request if the prescription is for... Start Date: 07/26/23 Status: Ordered cyanocobalamin 1000 mcg oral tablet, extended release 1 tablet = 1,000 mcg, By Mouth, Daily, # 90 tablet, 3 Refills, Maintenance, 08/11/23 12:10:00 EST, ER Tablet, [facility] [address] ([employer] [facility]), Partial fill upon patient request if the prescription is for a schedule II opioid drug., 175, cm, 07/26/23... Start Date: 08/11/23 Status: Ordered cyclobenzaprine 10 mg oral tablet 10 mg, By Mouth, 3 times a day, PRN, # 24 each, Refills 1, Tot. Refills 1, Maintenance, Pain , Moderate, 08/11/23 16:09:00 EST, Route to Pharmacy Electronically, [facility] [address] ([employer] [facility]), Partial fill upon patient request if the prescription i... Start Date: 08/11/23 Status: Ordered diclofenac 1% topical gel = 4 Gm, Topically, 4 times a day, to each knee. not to exceed 16 grams/day/single joint of lower extremities, # 480 Gm, 0 Refills, Maintenance, 07/26/23 10:51:00 EST, Gel, [facility] ([employer]), Partial fill upon patient request if the pr... Start Date: 07/26/23 Status: Ordered diclofenac 1% topical gel = 2 Gm, Topically, 4 times a day, to L shoulder not to exceed 8 grams/day/single joint of upper extremities, # 240 Gm, 0 Refills, Maintenance, 07/26/23 10:51:00 EST, Gel, [facility] [address] ([employer] [facility]), Partial fill upon patient request if the pre... Start Date: 07/26/23 Status: Ordered Diflucan 150 mg oral tablet See Instructions, 1 tablet By Mouth Once, repeat in 72 hours if no resolution of discharge., # 2 tablet, 0 Refills, Maintenance, 08/31/23 17:20:00 EST, Tablet, [facility]/pharmacy #[id number], Partial fill upon patient request if the prescription is for a schedule... Start Date: 08/31/23 Status: Ordered divalproex sodium 250 mg oral tablet, extended release = 750 mg, By Mouth, Daily, # 90 tablet, 0 Refills, Maintenance, 07/26/23 10:51:00 EST, ER Tablet, [facility] [address] ([employer] [facility]27), Partial fill upon patient request if the prescription is for a schedule II opioid drug., 175, cm, 07/26/23 8:30:00 EST,... Start Date: 07/26/23 Status: Ordered fluticasone-vilanterol 100 mcg-25 mcg/inh inhalation powder 1 puffs, Inhalation, Daily, Rinse mouth after each use, # 1 each, 6 Refills, Maintenance, 07/31/23 12:33:00 EST, Inhaler, [facility] ([employer]), Partial fill upon patient request if the prescription is for a schedule II opioid drug., 1 puff... Start Date: 07/31/23 Status: Ordered gabapentin 400 mg oral capsule 400 mg, By Mouth, 3 times a day, # 90 capsule, Refills 0, Tot. Refills 0, Maintenance, 07/26/23 10:51:00 EST, Route to Pharmacy Electronically, [facility] ([employer] [facility]), Partial fill upon patient request if the prescription is for a schedule I... Start Date: 07/26/23 Stop Date: 08/25/23 Status: Ordered hydrOXYzine pamoate 50 mg oral capsule = 50 mg, By Mouth, 3 times a day, PRN Anxiety, # 90 capsule, 0 Refills, Maintenance, 07/26/23 10:49:00 EST, Capsule, [facility] [address] ([employer] [address]), Partial fill upon patient request if the prescription is for a schedule II opioid drug., 175, cm, 11... Start Date: 07/26/23 Status: Ordered lidocaine 5% topical film 1 patch, Topically, Daily, PRN Pain , Mild, # 30 patch, 0 Refills, Maintenance, 07/26/23 10:44:00 EST, Patch, [facility] [address] ([employer] [address]), Partial fill upon patient request if the prescription is for a schedule II opioid drug., 1 patch Topically... Start Date: 07/26/23 Status: Ordered loratadine 10 mg oral tablet 10 mg, By Mouth, Daily, # 30 tablet, Refills 0, Tot. Refills 0, Maintenance, 07/26/23 10:45:00 EST,Route to Pharmacy Electronically, [facility] [address] ([employer] [address]), Partial fill upon patient request if the prescription is for a schedule II opioid d... Start Date: 07/26/23 Status: Ordered montelukast 10 mg oral tablet 10 mg, 1, tablet, By Mouth, Daily, # 30 tablet, Refills 0, Tot. Refills 0, Maintenance, 07/26/23 10:51:00 EST, Route to Pharmacy Electronically, [facility] [address] ([employer] [facility]27), Partial fill upon patient request if the prescription is for a schedule... Start Date: 07/26/23 Stop Date: 08/25/23 Status: Ordered Mucinex 600 mg oral tablet, extended release 1 tablet = 600 mg, By Mouth, Every 12 hours, for 7 days, # 14 tablet, 0 Refills, Acute 09/07/23 17:21:00 EST, 08/31/23 17:21:00 EST, ER Tablet, [facility]/pharmacy #[id number], Partial fill upon patient request if the prescription is for a schedule II opioid drug.... Start Date: 08/31/23 Stop Date: 09/07/23 Status: Ordered nicotine 21 mg/24 hr transdermal film, extended release 1 patch, Topically, Daily, # 30 patch, 0 Refills, Maintenance, 07/26/23 10:45:00 EST, Patch, [facility] [address] ([employer] [facility]27), Partial fill upon patient request if the prescription is for a schedule II opioid drug., 1 patch Topically Daily, 175, cm, 1... Start Date: 07/26/23 Status: Ordered omeprazole 40 mg oral enteric coated capsule 1 capsule = 40 mg, By Mouth, Daily, # 30 capsule, 1 Refills, Maintenance, 07/26/23 10:51:00 EST, ECCapsule, [facility] [address] ([employer] [facility]), Partial fill upon patient request if the prescription isfor a schedule II opioid drug., 175, cm, 07/26/23 8... Start Date: 07/26/23 Status: Ordered oxyCODONE 5 mg oral tablet 5 mg, By Mouth, Every 6 hours, PRN, # 16 tablet, Refills 0, Tot. Refills 0, Maintenance, Pain , Severe, 07/26/23 10:50:00 EST, Route to Pharmacy Electronically, [facility] [address] ([employer] [facility]), Partial fill upon patient request if the prescription is... Start Date: 07/26/23 Status: Ordered prazosin 1 mg oral capsule 2 mg, By Mouth, Daily at bedtime, # 30 capsule, Refills 0, Tot. Refills 0, Maintenance, 09/03/23 13:10:00 EST, Route to Pharmacy Electronically, [facility]/pharmacy #[id number], Partial fill upon patient request if the prescription is for a schedule II opioid drug... Start Date: 09/03/23 Status: Ordered predniSONE 10 mg oral tablet = 30 mg, By Mouth, Every 24 hours, # 3 tablet, 0 Refills, Maintenance, 07/31/23 7:00:00 EST, Tablet, [facility] [address] ([employer] [facility]), Partial fill upon patient request if the prescription is for a schedule II opioid drug., 175, cm, 07/26/23 8:30:00 E... Start Date: 07/31/23 Stop Date: 08/03/23 Status: Ordered predniSONE 10 mg oral tablet = 10 mg, By Mouth, Every 24 hours, # 3 tablet, 0 Refills, Maintenance, 08/06/23 7:00:00 EST, Tablet, [facility] [address] ([employer] [facility]), Partial fill upon patient request if the prescription is for a schedule II opioid drug., 175, cm, 07/26/23 8:30:00 E... Start Date: 08/06/23 Stop Date: 08/09/23 Status: Ordered predniSONE 50 mg oral tablet = 50 mg, By Mouth, Once, # 1 each, 0 Refills, Soft Stop, 07/27/23 7:00:00 EST, Tablet, [facility] [address] ([employer] [facility]), Partial fill upon patient request if the prescription is for a schedule II opioid drug., 175, cm, 07/26/23 8:30:00 EST, Height, 14... Start Date: 07/27/23 Status: Ordered QUEtiapine 100 mg oral tablet 100 mg, By Mouth, 2 times a day, PRN, # 60 tablet, Refills 0, Tot. Refills 0, Maintenance, Anxiety,09/03/23 13:10:00 EST, Route to Pharmacy Electronically, [facility]/pharmacy #[id number], Partial fill upon patient request if the prescription is for a schedule II... Start Date: 09/03/23 Status: Ordered QUEtiapine 400 mg oral tablet 1 tablet = 400 mg, By Mouth, Daily at bedtime, # 30 tablet, 0 Refills, Maintenance, 07/26/23 10:51:00 EST, Tablet, [facility] [address] ([facility] [facility]), Partial fill upon patient request if the prescription is for a schedule II opioid drug., 175, cm, 06/29... Start Date: 07/26/23 Status: Ordered tiotropium 1.25 mcg/inh inhalation aerosol 2 puffs = 2.5 mcg, Inhalation, Daily, # 1 each, 6 Refills, Maintenance, 07/31/23 12:33:00 EST, Aerosol, [facility] [id number] ([employer] [address]), Partial fill upon patient request if the prescription is for a schedule II opioid drug., 175, cm, 07/26/23 8:30:0... Start Date: 07/31/23 Status: Ordered Tums 500 mg oral tablet, chewable 500 mg, 1, tablet, Chew, Every 4 hours, PRN, # 60 tablet, Refills 0, Tot. Refills 0, Maintenance, Dyspepsia, 07/26/23 10:47:00 EST, Route to Pharmacy Electronically, [facility] [address] ([employer] [address]),Partial fill upon patient request if the prescripti... Start Date: 07/26/23 Status: Ordered Tylenol 8 Hour 650 mg oral tablet, extended release 2 tablet = 1,300 mg, By Mouth, Every 8 hours, # 180 tablet, 1 Refills, Maintenance, 07/11/23 15:44:00 EST, ER Tablet, [facility], Partial fill upon patient request if the prescription is for a schedule II opioid drug., 178, cher, 07/11/23 13:5... Start Date: 07/11/23 Status: Ordered Vitamin D3 1000 intl units oral capsule 1 capsule = 25 mcg, By Mouth, Daily, # 30 capsule, 0 Refills, Maintenance, 07/26/23 10:51:00 EST, [facility] [address] [address]), Partial fill upon patient request if the [...] Primary Care Member Role: PCP Address: Address: [address] [place] [address]- Name: Scooter Locke RN Position: [facility] RN Member Role: Primary Care Nurse Name: Sandi Hightower RN Position: S RN Member Role: Primary Care Nurse Name: Angelita Almeida RN Position: S RN Member Role: Primary Care Nurse Name: Citlali Reilly Position: S RN Member Role: Primary Care Nurse Name: Tiny Pettit RN Position: [facility] RN Member Role: Primary Care Nurse Name: Marcelino Fermin RN Position: [facility] RN Member Role: Primary Care Nurse Name: Brenda Toscano NP Position: Reference Physician Member Role: Primary Care Nurse Address: Address: [address] [place] [id number]- Care Team Related Persons Name: KEY DEWEY Address: [place] [address] Name: AIDA DEWEY Address: home [address] [place] [id number] Name: NO, ONE
[2023-09-19 10:33] VITALS: BP 138/64; PULSE 100; RESP 16; O2SAT 98; BMI 48.8
[2023-09-19 10:34] VITALS: BP 136/72; PULSE 88; RESP 16; O2SAT 99; BMI 48.8
== END 2023-09-19 11:51 | disposition home or self-care (01) ==
LOC: HO.PMCPRC 10:25
PROVIDERS: PCP Internal Medicine; Visit Provider Anesthesiology
DX: M17.12 Unilateral primary osteoarthritis, left knee (principal); M25.562 Pain in left knee; G89.29 Other chronic pain
CPT/HCPCS: 64454

== ENCOUNTER 2023-09-19 12:14 | Emergency (ER) | payer OTHER, SELFPAY ==
--- NOTE | ~2023-09-19 | XR_ITS ---
EXAMINATION: XR sacrum coccyx, XR lumbar spine CLINICAL INFORMATION: Reason for Exam tailbone pain COMPARISON: None TECHNIQUE: 3 views of the lumbar spine. 3 views of the sacrum and coccyx. FINDINGS: 5 nonrib-bearing lumbar-type vertebral bodies. Vertebral body heights are maintained. Alignment is maintained. Mild degenerative disc disease at the thoracolumbar junction with mild loss of disc space height. Right upper quadrant cholecystectomy clips. Mild osteoarthritis of the right hip partially imaged with subchondral sclerosis and cystic change. Well-corticated osseous fragment adjacent to the right hip may reflect sequelae of heterotopic ossification. No appreciable sacrococcygeal fracture or dislocation. XR/XR lumbar spine 2-3V IMPRESSION: 1. Vertebral body heights are maintained. Alignment is maintained. 2. Mild degenerative disc disease at the thoracolumbar junction. 3. Mild osteoarthritis of the right hip partially imaged. Well-corticated osseous fragment adjacent to the right hip may reflect sequelae of heterotopic ossification. 4. No appreciable sacrococcygeal fracture or dislocation.
--- NOTE | ~2023-09-19 | XR_ITS ---
EXAMINATION: XR sacrum coccyx, XR lumbar spine CLINICAL INFORMATION: Reason for Exam tailbone pain COMPARISON: None TECHNIQUE: 3 views of the lumbar spine. 3 views of the sacrum and coccyx. FINDINGS: 5 nonrib-bearing lumbar-type vertebral bodies. Vertebral body heights are maintained. Alignment is maintained. Mild degenerative disc disease at the thoracolumbar junction with mild loss of disc space height. Right upper quadrant cholecystectomy clips. Mild osteoarthritis of the right hip partially imaged with subchondral sclerosis and cystic change. Well-corticated osseous fragment adjacent to the right hip may reflect sequelae of heterotopic ossification. No appreciable sacrococcygeal fracture or dislocation. XR/XR sacrum coccyx min 2V IMPRESSION: 1. Vertebral body heights are maintained. Alignment is maintained. 2. Mild degenerative disc disease at the thoracolumbar junction. 3. Mild osteoarthritis of the right hip partially imaged. Well-corticated osseous fragment adjacent to the right hip may reflect sequelae of heterotopic ossification. 4. No appreciable sacrococcygeal fracture or dislocation.
--- NOTE | 2023-09-19 12:44 | ED.BACK ---
HPI - Back Pain/Injury General Chief Complaint: Back Pain/Injury Stated Complaint: Back Pain No Injury Time Seen by Provider: 09/19/23 14:08 Source: patient Mode of arrival: ambulatory Limitations: no limitations History of Present Illness HPI Narrative: Patient comes to the emergency room complaining of back pain in the lower spine that radiates towards the left leg. Patient denies urinary/fecal incontinence or retention. Patient denies any falls. However, patient states that the main reason that she is here is because she has been feeling suicidal, patient told his nurse that she is planning to jump in front of a bus. Patient states that she has been taking her medications as prescribed. Patient states that she was discharged from the hospital without Ambien, and states that the was helping her to keep her mood stable, since then, patient has been feeling more suicidal. Related Data Home Medications Medication Instructions Recorded Confirmed tiotropium bromide 1.25 2 puff inhalation DAILY 08/16/23 mcg/actuation mist for inhalation (Spiriva Respimat) Previous Rx's Medication Instructions Recorded albuterol sulfate 90 mcg/actuation 2 puff inhalation RQ4H PRN wheeze 05/09/23 aerosol inhaler (Ventolin HFA) #1 inhaler amlodipine 5 mg tablet 5 mg PO DAILY 7 days #10 tabs 05/09/23 benztropine 0.5 mg tablet 0.5 mg PO BID 7 days #20 tabs 05/09/23 cholecalciferol (vitamin D3) 10 10 mcg PO DAILY #30 tabs 05/09/23 mcg (400 unit) tablet (Vitamin D3) clonidine HCl 0.1 mg tablet 0.1 mg PO QID 7 days #40 tabs 05/09/23 clotrimazole 1 % vaginal cream 1 appl vaginal BEDTIME #45 grams 05/09/23 dicyclomine 10 mg capsule 10 mg PO QIDACHS PRN Gi Upset #120 05/09/23 caps docusate sodium 100 mg capsule 100 mg PO BID 7 days #60 caps 05/09/23 fluticasone furoate 100 1 inh inhalation DAILY #1 inhaler 05/09/23 mcg-vilanterol 25 mcg/dose inhalation powder (Breo Ellipta) fluticasone propionate 50 1 spray intranasal DAILY #1 inhaler 05/09/23 mcg/actuation nasal spray,suspension formoterol fumarate 20 mcg/2 mL 20 mcg (2 mL) inhalation BID #2 05/09/23 solution for nebulization multiple units lidocaine 4 % topical patch 2 patch transdermal DAILY #30 ea 05/09/23 (Lidocaine Pain Relief) loratadine 10 mg tablet 10 mg PO DAILY 7 days #10 tabs 05/09/23 metronidazole 500 mg tablet 500 mg PO Q12H #14 tabs 05/09/23 mirtazapine 30 mg tablet 30 mg PO BEDTIME 7 days #10 tabs 05/09/23 montelukast 10 mg tablet 10 mg PO DAILY 7 days #10 tabs 05/09/23 nicotine (polacrilex) 2 mg gum 4 mg buccal Q2H PRN Nicotine 05/09/23 Cravings #50 ea nicotine 21 mg/24 hr daily 21 mg transdermal DAILY PRN 05/09/23 transdermal patch smoking cessation #28 ea omeprazole 20 mg capsule,delayed 20 mg PO DAILY@0630 7 days #10 caps 05/09/23 release perphenazine 8 mg tablet 8 mg PO TID 7 days #30 tabs 05/09/23 prazosin 5 mg capsule 5 mg PO BEDTIME 7 days #10 caps 05/09/23 propranolol 10 mg tablet 10 mg PO BID 7 days #20 tabs 05/09/23 quetiapine 400 mg tablet 400 mg PO BEDTIME 7 days #10 tabs 05/09/23 quetiapine 50 mg tablet 50 mg PO DAILY 7 days #10 tabs 05/09/23 simethicone 80 mg chewable tablet 80 mg PO QIDWMHS PRN gas&bloating 05/09/23 (Gas Relief (simethicone)) #120 tabs clonazepam 0.5 mg tablet (Klonopin) 0.5 mg PO BID PRN anxiety #14 tabs 05/10/23 duloxetine 20 mg capsule,delayed 40 mg (2 x 20 mg) PO DAILY #60 caps 05/10/23 release (Cymbalta) methocarbamol 500 mg tablet 500 mg PO TID PRN muscle spasm #30 08/16/23 tabs lidocaine 5 % topical patch 1 patch topical DAILY PRN pain #30 08/31/23 ea Allergies Allergy/AdvReac Type Severity Reaction Status Date / Time aspirin Allergy Unknown Unknown Verified 09/19/23 12:44 codeine Allergy Unknown Unknown Verified 01/23/24 12:44 haloperidol [From Haldol] Allergy Unknown Unknown Verified 09/19/23 12:44 NSAIDS (Non-Steroidal Allergy Unknown Unknown Verified 09/19/23 12:44 Anti-Inflamma risperidone [From Risperdal] Allergy Unknown Unknown Verified 09/19/23 12:44 tramadol Allergy Unknown Unknown Verified 09/19/23 12:44 trazodone Allergy Unknown Unknown Verified 09/19/23 12:44 prozac Allergy Unknown Unknown Uncoded 09/19/23 12:44 Review of Systems Review of Systems: Constitutional : No Weight loss, No Fever, No Chills, No Night Sweats, No Fatigue, No Malaise ENT/Mouth : No Hearing loss, No Ear Pain, No Nasal Congestion, No Sinus Pain, No Hoarseness, No sore throat, No Rhinorrhea, No Swallowing Difficulty Eyes: No Eye Pain, No Swelling, No Redness, No Foreign Body, No Discharge, No Vision Changes Cardiovascular : No Chest Pain, No SOB, No Dyspnea on Exertion, No Orthopnea, No Edema, No Palpitations Respiratory : No Cough, No Sputum, No Wheezing, No Smoke Exposure, No Dyspnea Gastrointestinal : No Nausea, No Vomiting, No Diarrhea, No Constipation, No abdominal Pain, No Hematochezia, No Melena Genitourinary : no irregular bleeding, No Dysuria, No Urinary Frequency, No Hematuria, No Urinary Incontinence, No Urgency, No Flank Pain, No Urinary Flow Changes, No Hesitancy Musculoskeletal : Complaining of back pain radiating towards the left leg with certain movements, No joint pain, No Myalgias, No Joint Swelling Skin : No Skin Lesions, No rash Neuro : No Weakness, No Numbness, No Paresthesias, No Loss of Consciousness, No Dizziness, No Headache Psych : No Anxiety/Panic complaining of depression and suicidal ideation, no homicidal ideation Heme/Lymph: No Bruising, No Bleeding,No Lymphadenopathy Endocrine : No Polyuria, No Polydipsia, No Temperature Intolerance PMFSH Past Medical History Medical History Polysubstance use disorder Schizoaffective disorder, bipolar type PTSD (post-traumatic stress disorder) Polysubstance abuse BUZZ (iron deficiency anemia) Asthma HTN (hypertension) Social History Social History (Updated 06/08/23 @ 11:31 by ADIN Parra) Household Members: None Housing: Apartment Do you presently have visiting nurse or other home services: No Patient Tobacco Use Status: Current everyday Tobacco user Tobacco use type: Cigarette Cigarette Packs Per Day: 1 Cigarettes Per Day: 20.0 Years Smoked: 30 e-Cigarette/Vaping Use: Currently Using Second Hand Smoke Exposure: Yes Substance Use Type: Crack/Cocaine Advance Directives: No Advance Directives Information Provided: No service: No Current occupational status: unemployed Sexual orientation: Straight/Heterosexual Physical Exam Vital Signs: Vital Signs: Last Vital Signs Temp 98 F 09/19/23 12:46 Pulse 100 09/19/23 12:46 Resp 19 09/19/23 12:46 BP 126/90 H 09/19/23 12:46 Pulse Ox 97 09/19/23 12:46 O2 Del Method Room Air 09/19/23 12:46 BMI result Body Mass Index 49.6 Const: Other: Appearance: Alert. Oriented X3. No acute distress. Eyes: Pupils equal, round and reactive to light. ENT: Pharynx normal. Neck: Normal inspection. Neck supple. No lymph nodes noted. No crepitus CVS: Normal heart rate and rhythm. Pulses normal. Normal S1 and S2 Respiratory: No respiratory distress. Breath sounds normal. No Wheezing. No rales Abdomen: Soft and nontender. No rigidity. No distention. Pain, no pain to palpate number Skin: Skin warm and dry. Normal skin color. Normal skin turgor. Extremities: No lower extremity edema. No Lacerations. No Rash, ambulatory Neuro: Oriented X 3. No motor deficit. No sensory deficit. Moving all extremities. No slurred speech. CN 2 through 12 grossly intact Psych: calm, cooperative, normal affect Course Course Course Narrative: RME: 47 year-old F w/ PMHx homelessness, PTSD, HTN, Schizoaffective, polysubstance abuse presenting to the ED c/o low back pain from tailbone to L thigh. denies injury. Patient was seen at pain management this morning & received cotisone injection in L knee currently Rx Robaxin XRs ordered Full HPI, ROS and PE to be performed by primary ED provider. Medications Administered Discontinued Medications Generic Name Dose Route Start Last Admin Trade Name Freq PRN Reason Stop Dose Admin Acetaminophen 975 mg 09/19/23 14:13 09/19/23 15:08 Acetaminophen 325 Mg Tablet PO 09/19/23 14:14 975 mg ONCE ONE Administration Medical Decision Making Medical Decision Making MDM Narrative: -interpretation of x-rays of the sacrum, coccyx and lumbar spine: No obvious abnormality, no dislocation or fracture. -discussed with the patient that she likely has sciatica versus a her needed disc. Patient instructed to follow-up with her primary care physician as she may need physical therapy plus-minus MRI -all of patient's labs pending -care team consult pending Differential Diagnosis Differential Diagnoses: The differential diagnosis associated with the presentation includes Lab Data Labs: Lab Results 09/19/23 Range/Units 14:30 Urine Color Yellow Urine Appearance Cloudy Urine pH 6.0 (5.0-9.0) Ur Specific [place] 1.015 (1.005-1.025) Urine Protein Negative (Neg-Trace) mg/dL Urine Glucose (UA) Negative (Negative) mg/dL Urine Ketones Negative (Negative) mg/dL Urine Blood Negative (Negative) Urine Nitrite Negative (Negative) Ur Leukocyte Esterase Negative (Negative) Urine Opiates Screen Not Detected (Not Detect) Urine Fentanyl Screen Not Detected (Not Detect) Ur Barbiturates Screen Not Detected (Not Detect) Ur Phencyclidine Scrn Not Detected (Not Detect) Ur Amphetamines Screen Not Detected (Not Detect) U Benzodiazepines Scrn Not Detected (Not Detect) Urine Cocaine Screen Not Detected (Not Detect) U Marijuana (THC) Screen Not Detected (Not Detect) Discharge Plan Discharge Clinical Impression: Sciatica, Depression Patient Disposition: Still a Patient Prescriptions: No Action lidocaine 5 % adhesive patch,medicated 1 patch topical DAILY PRN (Reason: pain) Qty: 30 3RF Rx Instructions: leave on most painful area for up to 12 hrs metronidazole 500 mg Tablet 500 mg PO Q12H Qty: 14 0RF dicyclomine 10 mg Capsule 10 mg PO QIDACHS PRN (Reason: Gi Upset) Qty: 120 0RF simethicone [Gas Relief (simethicone)] 80 mg Tablet,Chewable 80 mg PO QIDWMHS PRN (Reason: gas&bloating) Qty: 120 0RF clotrimazole 1 % Cream 1 appl vaginal BEDTIME Qty: 45 0RF Rx Instructions: Apply at bedtime for 7 days cholecalciferol (vitamin D3) [Vitamin D3] 10 mcg (400 unit) Tablet 10 mcg PO DAILY Qty: 30 0RF clonidine HCl 0.1 mg Tablet 0.1 mg PO QID 7 Days Qty: 40 0RF Protocol: Hold for SBP< HOLD for SBP < : 90 benztropine 0.5 mg Tablet 0.5 mg PO BID 7 Days Qty: 20 0RF lidocaine [Lidocaine Pain Relief] 4 % Adhesive Patch,Medicated 2 patch transdermal DAILY Qty: 30 1RF Protocol: Apply to: Apply to: left knee nicotine (polacrilex) 2 mg Gum 4 mg buccal Q2H PRN (Reason: Nicotine Cravings) Qty: 50 0RF amlodipine 5 mg Tablet 5 mg PO DAILY 7 Days Qty: 10 0RF prazosin 5 mg Capsule 5 mg PO BEDTIME 7 Days Qty: 10 0RF Protocol: Hold for SBP< HOLD for SBP < : 90 propranolol 10 mg Tablet 10 mg PO BID 7 Days Qty: 20 0RF mirtazapine 30 mg Tablet 30 mg PO BEDTIME 7 Days Qty: 10 0RF nicotine 21 mg/24 hr Patch 24 Hour 21 mg transdermal DAILY PRN (Reason: smoking cessation) Qty: 28 0RF docusate sodium 100 mg Capsule 100 mg PO BID 7 Days Qty: 60 0RF omeprazole 20 mg Capsule,Delayed Release(Dr/Ec) 20 mg PO DAILY@0630 7 Days Qty: 10 0RF montelukast 10 mg Tablet 10 mg PO DAILY 7 Days Qty: 10 0RF albuterol sulfate [Ventolin HFA] 90 mcg/actuation Hfa Aerosol Inhaler 2 puff inhalation RQ4H PRN (Reason: wheeze) Qty: 1 0RF perphenazine 8 mg Tablet 8 mg PO TID 7 Days Qty: 30 0RF fluticasone propionate 50 mcg/actuation [place],Suspension 1 spray intranasal DAILY Qty: 1 0RF loratadine 10 mg Tablet 10 mg PO DAILY 7 Days Qty: 10 0RF quetiapine 50 mg Tablet 50 mg PO DAILY 7 Days Qty: 10 0RF quetiapine 400 mg Tablet 400 mg PO BEDTIME 7 Days Qty: 10 0RF formoterol fumarate 20 mcg/2 mL Solution For Nebulization 20 mcg INHALATION BID Qty: 2 0RF fluticasone furoate-vilanterol [Breo Ellipta] 100-25 mcg/dose Blister With Device 1 inh INHALATION DAILY Qty: 1 0RF duloxetine [Cymbalta] 20 mg capsule,delayed release(DR/EC) 40 mg PO DAILY Qty: 60 0RF clonazepam [Klonopin] 0.5 mg tablet 0.5 mg PO BID PRN (Reason: anxiety) Qty: 14 0RF Spiriva Respimat 1.25 mcg/actuation mist 2 puff inhalation DAILY methocarbamol 500 mg tablet 500 mg PO TID PRN (Reason: muscle spasm) Qty: 30 0RF Rx Instructions: may cause drowsiness, no driving or alcohol use while taking this medication.
[2023-09-19 12:46] VITALS: BP 126/90; PULSE 100; RESP 19; TEMP 36.6; O2SAT 97; BMI 49.6
--- NOTE | 2023-09-19 13:46 | PC.NURSE ---
pt came in to ED Pod wearing hair bonnet, pt demanding to keep bonnet as hair covering, ok per CC d/t cultural sensitivity. searched by this RN and security.
[2023-09-19 14:45] LABS: Amphetamine Screen Urine Not Detected (Not Detect); Appearance Urine Cloudy; Barbiturates, Urine Not Detected (Not Detect); Benzodiazepines Screen Urine Not Detected (Not Detect); Cannabinoid Screen Urine Not Detected (Not Detect); Cocaine Screen Urine Not Detected (Not Detect); Color Urine Yellow; Fentanyl, urine Not Detected (Not Detect); Glucose Urine UA Negative (Negative); Leukocyte Esterase Urine Negative (Negative); Nitrite Urine Negative (Negative); Opiate Screen Urine Not Detected (Not Detect); Phencyclidine Screen Urine Not Detected (Not Detect); Specific Gravity - Urine 1.015 (1.005-1.025); Urine Blood Negative (Negative); Urine Ketones Negative (Negative); Urine Protein Negative (Neg-Trace)
[2023-09-19] MEDS: Acetaminophen 325 MG TABLET 975 MG PO (15:08)
[2023-09-19 15:51] LABS: MANUAL DIFF FLAG NO
[2023-09-19 15:53] LABS: Basophils Percent Auto 0.5 % (0-2); Eosinophils Absolute Auto 0.1 X10*3/uL (0.0-0.4); Eosinophils Percent Auto 1.8 % (0-4); Hematocrit 37.7 % (37.0-47.0); Imm Gran Abs Auto 0.02 X10*3/uL (0.00-0.03); Imm Gran Pct Auto 0.5 % (0.0-0.4); Lymphocytes Absolute Auto 1.5 X10*3/uL (1.2-4.9); Mean Corpuscular HGB Conc 31.8 g/dl (31.0-35.0); Mean Corpuscular Hemoglobin 28.1 pg (27.0-33.0); Mean Corpuscular Volume 88.3 fL (80.0-98.0); Mean Platelet Volume 10.3 fL (9.4-12.3); Monocytes Absolute Auto 0.5 X10*3/uL (0.1-1.2); Monocytes Percent Auto 10.7 % (2-11); Neutrophils Absolute Auto 2.4 x10*3/uL (2.0-8.3); Neutrophils Percent Auto 53.5 % (45-73); Platelet Count 247 X10*3/uL (160-400); Red Blood Count 4.27 X10*6/uL (4.20-5.50); Red Cell Distribution Width 14.6 % (11.0-16.0); White Blood Count 4.4 X10*3/uL (4.8-10.8)
[2023-09-19 16:08] LABS: Alanine Aminotransferase 9 U/L (0-31); Albumin Level 3.6 g/dL (3.5-5.0); Alkaline Phosphatase 94 U/L (39-117); Anion Gap 11 (12-20); Aspartate Amino Transferase 12 U/L (5-31); Bilirubin Direct < 0.2 mg/dL (0.0-0.5); Bilirubin Total 0.2 mg/dL (0.0-1.0); Blood Urea Nitrogen 13 mg/dL (9-16); Calcium 9.2 mg/dL (8.4-10.2); Carbon Dioxide 27 mmol/L (22-29); Chloride 105 mmol/L (96-108); Creatinine Clr Calc Pharmacy 131.6; Estimated Glomerular Filt Rate > 60; Ethanol < 10 mg/dL; Glucose Random 80 mg/dL (60-115); Potassium 4.5 mmol/L (3.3-5.1); Sodium 138 mmol/L (135-145); Total Protein 6.8 g/dL (6.5-8.0)
--- NOTE | 2023-09-19 20:20 | PC.NURSE ---
patient relaxing in bed, earlier had requested addl tylenol, too soon per total tylenol available per day, t/w did ask provider for future dose, will continue to onitor for safety.
[2023-09-19 20:45] VITALS: BP 123/72; PULSE 95; RESP 20; TEMP 36.4; O2SAT 97
[2023-09-19] MEDS: Cyclobenzaprine HCl 10 MG TABLET PO (21:08)
--- NOTE | 2023-09-19 21:44 | MHC.CARE ---
Pt referred to [facility] resp[facility], confirmed referral
[2023-09-19] MEDS: clonazePAM 1 MG TABLET PO (22:02)
--- NOTE | 2023-09-19 22:40 | PHA.MEDREC ---
Pharmacy Consult ? Medication Reconciliation Pharmacy has completed the medication reconciliation. Patient confirmed medications based on claim history. Patient report taking all medication even though most were fill 07/20 for 30 day supplies. Patient was not able to confirm perphenazine dose however reported taking it. Most recent perphenazine fill was for 2 mg for a quantity of 90 for a 15 day supply which is the equivalent to 2 tablet TID. Staci Mendez, SharleneD
[2023-09-20] MEDS: Acetaminophen 325 MG TABLET 975 MG PO (00:38)
[2023-09-20] MEDS: QUEtiapine Fumarate 400 MG TABLET PO (01:45)
[2023-09-20] MEDS: Perphenazine 4 MG TABLET PO ×2 (01:45→09:27)
[2023-09-20] MEDS: Prazosin HCL 1 MG CAPSULE 2 MG PO (01:45)
[2023-09-20 05:44] VITALS: BP 124/81; PULSE 91; RESP 19; TEMP 36.6; O2SAT 96
[2023-09-20 08:32] VITALS: BP 126/80; PULSE 95; TEMP 36.9; O2SAT 97
[2023-09-20] MEDS: amLODIPine Besylate 10 MG TABLET PO (09:26)
[2023-09-20] MEDS: Cholecalciferol (Vitamin D3) 10 MCG TABLET PO (09:26)
[2023-09-20] MEDS: Docusate Sodium 100 MG CAPSULE PO (09:26)
[2023-09-20] MEDS: Divalproex Sodium ER 250 MG TAB.ER.24H 750 MG PO (09:26)
[2023-09-20] MEDS: Loratadine 10 MG TABLET PO (09:27)
[2023-09-20] MEDS: DULoxetine HCl 60 MG CAPSULE.DR PO (09:27)
[2023-09-20] MEDS: clonazePAM 1 MG TABLET PO (09:27)
[2023-09-20] MEDS: Propranolol HCL 10 MG TABLET PO (09:27)
[2023-09-20] MEDS: Benztropine Mesylate 0.5 MG TABLET PO (09:27)
[2023-09-20] MEDS: Montelukast Sodium 10 MG TABLET PO (09:27)
[2023-09-20] MEDS: Omeprazole 40 MG CAPSULE.DR PO (09:27)
[2023-09-20] MEDS: Cyanocobalamin (Vitamin B-12) 1,000 MCG TABLET 1000 MCG PO (09:27)
[2023-09-20] MEDS: Gabapentin 400 MG CAPSULE PO (09:27)
[2023-09-20] MEDS: Tiotropium Bromide 2.5 mcg 1 PUFF/2.5 MCG MIST.INHAL 2 PUFF INHALE (09:53)
--- NOTE | 2023-09-20 11:15 | MHC.CARE ---
[facility] does not have [facility] openings today.
--- NOTE | 2023-09-20 12:27 | PC.NURSE ---
Murali OOB this AM. Adherent with all of her AM medications. Murali req/rec PRN Clonazepam for anxiety and reports she needs a new prescriber for in the community. Murali denies SI but verbalized she doesn't want to leave the hospital. Murali met with CARE team and was agreeable to discharge.
--- NOTE | 2023-09-20 12:29 | MHC.CARE ---
Patient requested discharge and ride to [place] said she has a safe place to go tonight and will going to family in [place] tomorrow.
== END 2023-09-20 12:30 | disposition home or self-care (01) ==
PROVIDERS: Emergency Provider Emergency Medicine; PCP Internal Medicine
DX: M54.42 Lumbago with sciatica, left side (principal); F32.A Depression, unspecified; F43.10 Post-traumatic stress disorder, unspecified; F25.0 Schizoaffective disorder, bipolar type; I10 Essential (primary) hypertension; F17.210 Nicotine dependence, cigarettes, uncomplicated; Z59.00 Homelessness unspecified; Z79.899 Other long term (current) drug therapy
CPT/HCPCS: 36415; 72100; 72220; 80048; 80076; 80307; 81003; 85025; 99285; S9485